=== PATIENT | male | born 1945 | race African-American/Black ===

== ENCOUNTER 2017-12-24 23:38 | Observation (INO) | payer MEDICARE, OTHER, SELFPAY ==
[2017-12-24 23:43] VITALS: BP 180/87; PULSE 67; RESP 20; TEMP 36.4; O2SAT 96
--- NOTE | 2017-12-24 23:54 | DI.RAD.S_ITS ---
PROCEDURE: XR HIP W PEL IF DONE RT 2V INDICATIONS: Ground level fall with hip pain/bruising TECHNIQUE: AP pelvis with lateral view(s) of the right hip(s). COMPARISON: None. FINDINGS: Bones: No definitive fractures or dislocations. Subtle lucency in the greater trochanter of right femur. Pelvic ring appears intact. No suspicious bony lesions. Soft tissues: The visualized bowel gas pattern is normal. Vascular calcifications consistent with atherosclerosis. IMPRESSION: No definitive fractures. Subtle lucency in the area of the greater trochanter. CT is suggested for further evaluation. Dictated by: Jassi Henao M.D. on 12/25/2017 at 8:13 Approved by: Jassi Henao M.D. on 12/25/2017 at 8:17
[2017-12-25] VITALS (9 sets, daily range): BP systolic 142–156; BP diastolic 65–91; PULSE 60–80; RESP 14–18; TEMP 36.6–37.5; O2SAT 96–99; BMI 16.9
--- NOTE | 2017-12-25 00:48 | PC.NURSE ---
glf x2 today at home, witnessed, c/o rt hip pain, difficulty ambulating, distal cms intact, c/o spasms in triage, no visible sign of injury
--- NOTE | 2017-12-25 00:55 | DI.CT.S_ITS ---
PROCEDURE: CT PEL WO CON INDICATIONS: Right hip pain, cannot ambulate, negative Xray TECHNIQUE: Noncontrast 3 mm axial sections acquired through the bony pelvis, with coronal and sagittal reformatting. COMPARISON: [facility], CT, ABDOMEN/PELVIS WITH CONTRAST, 03/07/2017, 14:57. FINDINGS: Image quality: Excellent. Bones: There is a nondisplaced fracture involving the greater trochanter. There are moderate compression fractures of L4 and L5, unchanged from 03/07/2017. Generalized osteopenia. Soft tissues: Large amount of stool in colon. Severe atherosclerosis. Moderate amount of stool in colon. IMPRESSION: 1. Nondisplaced fracture of the right proximal femur involving the greater trochanter. 2. Moderate chronic compression fractures of L4 and L5. 3. Severe atherosclerosis. No significant discrepancy with the flight control manager radiology preliminary report. Dictated by: Jassi Henao M.D. on 12/25/2017 at 7:48 Approved by: Jassi Henao M.D. on 12/25/2017 at 7:54
[2017-12-25] MEDS: HYDROCODONE/ACET 5/325 PREPACK 1 BOTTLE MISC (01:04)
--- NOTE | 2017-12-25 02:09 | PC.NURSE ---
pt unable to put weight on right leg due to pain in hip
[2017-12-25 03:11] LABS: Add Manual Diff / Slide Review NO; Basophils Percent Auto 0.5 % (0-2); Eosinophils Percent Auto 0.9 % (2-4); Hematocrit 34.7 % (41-53); Mean Corpuscular HGB Conc 34.6 % (30-36); Mean Corpuscular Hemoglobin 31.2 PG (26-34); Mean Corpuscular Volume 90.1 fL (80-100); Monocytes Percent Auto 7.3 % (3-14); Neutrophils Absolute Auto 7200 /uL (3000-5900); Neutrophils Percent Auto 73.3 % (50-75); Platelet Count 147 X10^3/uL (150-400); Red Blood Cell Count 3.85 X10^6/uL (4.5-5.9); Red Cell Distribution Width 13.7 % (11.6-14.8); White Blood Cell Count 9.8 X10^3/uL (4.5-11.0)
--- NOTE | 2017-12-25 03:19 | PC.NURSE ---
pt administered one norco from scanned prepack. Pt is now being admitted after failed ambulation trial. remaining three norco given to Law RN to be put in pharmacy upstairs per [place] coordinator. [place] are in labeled PP bottle with PP script signed by JULIUS with pt sticker attached.
[2017-12-25 03:21] LABS: BUN Creatinine Ratio 23.8 (6-22); Blood Urea Nitrogen 19 mg/dL (9-20); Calcium 9.1 mg/dL (8.4-10.2); Carbon Dioxide 29 mmol/L (22-32); Chloride 100 mmol/L (98-107); Estimated Glomerular Filt Rate > 60.0 mL/min (>60); Glucose 96 mg/dL (80-110); HEMOLYSIS < 15 (0-50); Potassium 3.9 mmol/L (3.4-5.1); Sodium 139 mmol/L (137-145)
--- NOTE | 2017-12-25 03:39 | ED_ITS ---
HPI - Extremity Injury (Lower) General Chief Complaint: Extremity Injury, Lower Stated Complaint: FALL AT HOME BRUISING ON RIGHT HIP Time Seen by Provider: 12/25/17 00:07 Source: patient and family Mode of arrival: wheelchair Limitations: no limitations History of Present Illness HPI Narrative: 72-year-old male with history of stroke and seizure presents with a mechanical fall and right hip pain. He presents with both and son. He is otherwise well and free of complaint. He denies any precipitating factors such as dizziness, weakness or lightheadedness. He has no chest pain or shortness of breath. He is unable to ambulate given pain. He denies any numbness, tingling or weakness. He fell after a very strong sneeze which knocked him over MD complaint: hip injury Onset (ago): minute(s) Injury: Right: hip Type of Injury: blunt Place: home Severity: moderate Relieving factors: nothing Exacerbating factors: weight bearing and movement Context: fall and direct blow Associated symptoms: swelling and able to partially bear weight Other symptoms: none Related Data Home Medications Medication Instructions Recorded Confirmed Lactobacillus acidophilus 2 tab TUBE QDAY #0 11/13/16 omeprazole 20 mg PO QDAY #0 11/13/16 ondansetron 4 mg PO Q4HP PRN #0 11/13/16 Previous Rx's Medication Instructions Recorded Disabled Parking Permit ea #1 05/02/16 acetaminophen 650 mg PEG Q6HP PRN #30 tab 11/07/16 levetiracetam 500 mg TUBE BID #30 tab 11/07/16 loratadine 10 mg TUBE QDAY #30 tab 11/07/16 mirtazapine 30 mg PEG HS #30 tab 11/07/16 phenytoin [Dilantin-125] 100 mg PEG BID #60 tab 11/07/16 ferrous sulfate 5 ml PO BID 30 Days #0 ml 11/15/16 Allergies Allergy/AdvReac Type Severity Reaction Status Date / Time vancomycin [VANCOMYCIN] Allergy Unknown VANCO Unverified 07/11/17 12:26 ALLERGY ON SNF FACE SHEET Review of Systems Review of Systems All systems reviewed & are unremarkable except as noted in HPI and below Constitutional Denies chills, Denies fever(s), Denies lethargy and Denies weakness Eyes Denies change in vision, Denies eye discharge, Denies irritation and Denies loss of vision ENT Ears, Nose, Mouth, and Throat: Denies change in voice, Denies neck pain and Denies sore throat Cardiovascular Denies chest pain, Denies irregular heart rhythm, Denies lightheadedness, Denies palpitations, Denies dyspnea, Denies dyspnea on exertion and Denies orthopnea Respiratory Denies cough, Denies dyspnea, Denies dyspnea on exertion and Denies wheezing Gastrointestinal Gastrointestinal: Denies abdominal pain, Denies change in bowel habits, Denies diarrhea, Denies nausea and Denies vomiting Genitourinary Denies hematuria, Denies flank pain, Denies urinary incontinence and Denies urinary urgency Musculoskeletal Reports joint swelling, Reports limited range of motion and Denies neck pain Integumentary/Breasts Denies pruritus, Denies erythema, Denies rash and Denies wounds Neurologic Denies confusion, Denies loss of vision and Denies weakness Psychiatric Denies anxiety, Denies confusion, Denies depression, Denies homicidal ideation and Denies suicidal ideation Endocrine Denies palpitations Hematologic/Lymphatic Denies easy bruising Allergic/Immunologic Denies wheezing Exam Narrative Exam Narrative: Pleasant 72-year-old male obviously in distress, laying on his left side and clutching his right hip, which is causing him significant pain Initial Vital Signs Initial Vital Signs: Vital Signs Temperature 97.5 F L 12/24/17 23:43 Pulse Rate 67 12/24/17 23:43 Respiratory Rate 20 12/24/17 23:43 Blood Pressure 180/87 H 12/24/17 23:43 Pulse Oximetry 96 12/24/17 23:43 Const General: cooperative and well developed Nutritional Appearance: well nourished Orientation: alert, awake, oriented x3 and not confused [facility] Head: normocephalic and atraumatic Ears: external ears normal and TM's normal bilaterally Nose: external nose normal and No nasal discharge Face and sinus: sinuses nontender, face symmetric, no sinus tenderness and No dry mucous membranes Mouth: oral mucosae normal and moist mucous membranes Teeth and gingiva: dentition normal Throat: tonsils normal and uvula midline Chest Chest: normal inspection of the chest Cardio Rate: regular rate Rhythm: regular rhythm Heart Sounds: no click, no gallops, no murmurs and no rubs Pulses: normal peripheral pulses Back/Spine/Pelvis Back: No CVA tenderness Cervical Spine: cervical ROM normal and No pain with cervical ROM Thoracic/Lumbar Spine: thoracic and lumbar spine normal to inspection Skin General: no rashes or lesions noted, No jaundice and No petechiae Neuro General: alert, oriented x3, gait normal and no focal motor deficits Speech: speech normal Extrem Other: Patient has severe right hip pain to palpation but no obvious deformity. No shortening or external rotation. This is closed and isolated. Neurovascularly intact. Course Course Narrative: Patient had a fall with right hip pain. Pelvic and right hip x -ray are unremarkable. Patient given hydrocodone and pain still to significant to ambulate. CT of pelvis ordered which notes nondisplaced right greater trochanter fracture. Orthopedic consult obtained and this is nonsurgical and weight-bearing as tolerated. Patient attempted to ambulate and even with a walker and significant support was unable to take more than 1 step, complaining of hip pain Decision to Admit Date: 12/25/17 Decision to Admit time: 02:35 Orders Ordered: ED Orders 12/24/17 23:54 XR hip w pel if done RT 2V Stat 12/25/17 00:55 CT pelvis wo con Stat 12/25/17 03:01 Basic Metabolic Panel Stat Complete Blood Count AUTO DIFF Stat Discontinued Medications Hydrocodone Bitart/Acetaminophen (Vicodin Prepack) 1 bottle MISC SEEINSTR ONE Stop: 12/25/17 00:56 Last Admin: 12/25/17 01:04 Dose: 1 bottle Consultations Consultation #1: Dr. Aguirre has reviewed the images and states this is nonsurgical, and weight-bearing as tolerated Consultation #2: Dr. Archer is happy to accept this patient Vital Signs - 8 hr 12/24/17 23:43 Temperature 97.5 F L Pulse Rate 67 Respiratory Rate 20 Blood Pressure 180/87 H Pulse Oximetry 96 MDM - Extremity Injury (Lower) Medical Records Attestation: I reviewed the patient's medical records. Lab Data Attestation: I reviewed the patient's lab results. Result diagrams: 12/25/17 03:01 12/25/17 03:01 Lab Results 12/25/17 12/25/17 Range/Units 03:01 03:01 WBC 9.8 (4.5-11.0) X10^3/uL RBC 3.85 L (4.5-5.9) X10^6/uL Hgb 12.0 L (13.5-17.5) g/dL Hct 34.7 L (41-53) % MCV 90.1 (80-100) fL MCH 31.2 (26-34) PG MCHC 34.6 (30-36) % RDW 13.7 (11.6-14.8) % Plt Count 147 L (150-400) X10^3/uL Neut % (Auto) 73.3 (50-75) % Lymph % (Auto) 18.0 L (25-40) % [place] % (Auto) 7.3 (3-14) % Eos % (Auto) 0.9 L (2-4) % Baso % (Auto) 0.5 (0-2) % Neut # (Auto) 7200 H (2918-0771) /uL Sodium 139 (137-145) mmol/L Potassium 3.9 (3.4-5.1) mmol/L Chloride 100 (98-107) mmol/L Carbon Dioxide 29 (22-32) mmol/L BUN 19 (9-20) mg/dL Creatinine 0.80 (0.66-1.25) mg/dL Estimated GFR > 60.0 (>60) mL/min BUN/Creatinine Ratio 23.8 H (6-22) Glucose 96 (80-110) mg/dL Calcium 9.1 (8.4-10.2) mg/dL Imaging Data Pelvis Xray: Attestation: I personally reviewed and interpreted this imaging study as follows: My impression: DIRK Radiologist's impression: DIRK CT Pelvis: Radiologist's impression: Nondisplaced fracture of right greater trochanter MDM Narrative Medical decision making narrative: Patient has some difficulty ambulating at baseline and at times requires the use of a walker. He was very unsteady and a tremendous risk for a fall and significant injury Discharge Plan Departure Patient Disposition: Admitted as Observation Clinical Impression: Closed fracture of right hip Interventions: ED Discharge Assessment Last Done: 12/25/17 03:22 Admit Date/Time: 12/25/17 03:24 Admit Provider: Samuel Archer
[2017-12-25] MEDS: HYDROCODONE/ACET 5/325 TABLET 1 TAB PO ×2 (09:12→14:50)
--- NOTE | 2017-12-25 12:38 | PC.NURSE ---
Day Shift- Rn and program writer spoke with Dr. null at 0815 to receive diet and pain med order. Pt given [place] 1 tab prn at 0915 for 8/10 pain with movement, upon reassessment, pt states has no pain. OOB to recliner chair with [address] null to assess pt, no home meds ordered yet. VSS, Pt has no further complaints. CMS+ to BLE, PPP, no edema noted, no open skin area/skin issues at this time. High fall risk precautions in place, Pt sitting up in chair at 1140. Call light within reach.
--- NOTE | 2017-12-25 13:54 | CM.DANOTE ---
Addendum entered by DEAN Terrell 12/25/17 13:59: Orthopedic consult obtained and was reported as nonsurgical and patient weight-bearing as tolerated. Patient to work with PT to determine discharge needs. Original Note: Discharge Planning/Care Management CM Discharge Assessment Start: 12/25/17 13:48 Document 12/25/17 13:53 MD (Rec: 12/25/17 13:54 [id number]) Discharge Planning Assessment Assigned 3D Specialist DEAN Terrell Advance Directives? No Advance Directives on File No History Provided By Patient Medical Record Has Patient been admitted in last 30 No days? Prior Living Arrangements House Household Members family Type of transporation used prior to Relies on Others admit Discharge Plan Home Review Status In Process Please Provide Date Initial DC 12/25/17 Assessment Was Performed Next Review Type Continued Stay Review Reviewed EMR: 72-year-old male with history of stroke and seizure admitted following fall and right hip pain. Patient currently OBS status pending Ortho consult and PT eval. SW attempted to complete assessment with patient but patient stated the pain medications were making him out of it. Patient was able to report he lives with his and two adult children. Asked SW to come back later. Patient was last admitted 04/[address] [facility]. Per MD: patient able to discharge home is he does will with PT. At this time discharge needs are unclear.
--- NOTE | 2017-12-25 14:57 | P.HP_ITS ---
History of Present Illness Chief complaint: FALL AT HOME BRUISING ON RIGHT HIP Narrative: Patient was sweeping the floor last night, had a vigorous cough and fell landing on his right hip. He has had a history of stroke affecting his left side. He does not feel weak on the left side. He has a walker at home which he uses infrequently. Patient did not lose consciousness, hit his head, feel short of breath, have chest pain, nausea, emesis, hemetemesis, bright red blood per rectum, burning with urination, fever, chills, cough, or headache. He was evaluated in the emergency department with both a hip xray and pelvic CT which confirmed a non displaced greater trochanteric fracture. The case was discussed with orthopedics and surgery was not recommended. The patient will be allowed to weight bear as tolerated. Patient was unable to ambulate last evening and was admitted for observation. Patient History Medical History CVA, old, alterations of sensations (Acute) Hypertension (Acute) Iron deficiency anemia (Acute) Seizure disorder (Acute) Family & Social History Social History: household members family Prior Living Arrangements House Safety & Behavioral: Feels Safe in Current Yes Environment Been Physically Hurt or No Threatened By a Person Suicidal Ideation Description None Tobacco & Substance use: Smoking Status Never smoker alcohol intake never Substance Use Type does not use Meds Home Medications Medication Instructions Recorded Confirmed Type omeprazole 20 mg PO QDAY #0 11/13/16 12/25/17 History Disabled Parking Permit 1 ea MISCELLANEOUS DIRECTED 12/25/17 12/25/17 History acetaminophen 650 mg PO Q6HP PRN 12/25/17 12/25/17 History aspirin 1 tab PO DAILY 12/25/17 12/25/17 History felodipine 1 tab PO DAILY 12/25/17 12/25/17 History ferrous sulfate 1 tab PO DAILY 12/25/17 12/25/17 History fluoxetine 12/25/17 History levetiracetam [Keppra] 500 mg PO BID 12/25/17 12/25/17 History lisinopril 20 mg PO DAILY 12/25/17 12/25/17 History loratadine 10 mg PO QDAY 12/25/17 12/25/17 History mirtazapine 30 mg PO HS 12/25/17 12/25/17 History phenytoin sodium extended 1 cap PO BID 12/25/17 12/25/17 History [Dilantin Extended] Allergies Allergy/AdvReac Type Severity Reaction Status Date / Time vancomycin [VANCOMYCIN] Allergy Unknown VANCO Unverified 07/11/17 12:26 ALLERGY ON SNF FACE SHEET Review of Systems Review of Systems All systems reviewed & are unremarkable except as noted in HPI and below Exam Vital Signs (past 8 hours): - 12/25/17 07:38 12/25/17 09:21 12/25/17 11:35 Temperature 98.5 F 98.1 F Pulse Rate 60 62 Respiratory Rate 16 16 Blood Pressure 142/91 H 144/65 H Pulse Oximetry 97 97 99 Oxygen Delivery Method Room Air Oxygen Flow Rate 0 Narrative Exam Narrative: Pleasant male in no acute distress HEENT: NC/AT, EOMI, bilateral arcus senilis, oropharynx clear neck supple Lungs: clear to auscultation CV: RRR nl Sl S2 Abd: Soft/ non tender/ nondistended/ no HSM Ext: right femur rotated upwards, no edema Neuro: non focal Skin: no lesions Psych: awake alert, appropriate Objective Labs Result Diagrams: 12/25/17 03:01 12/25/17 03:01 Labs: Laboratory Results - last 24 hr 12/25/17 12/25/17 03:01 03:01 WBC 9.8 RBC 3.85 L Hgb 12.0 L Hct 34.7 L MCV 90.1 MCH 31.2 MCHC 34.6 RDW 13.7 Plt Count 147 L Neut % (Auto) 73.3 Lymph % (Auto) 18.0 L Saline % (Auto) 7.3 Eos % (Auto) 0.9 L Baso % (Auto) 0.5 Neut # (Auto) 7200 H Sodium 139 Potassium 3.9 Chloride 100 Carbon Dioxide 29 BUN 19 Creatinine 0.80 Estimated GFR > 60.0 BUN/Creatinine Ratio 23.8 H Glucose 96 Calcium 9.1 Assessment & Plan (1) Closed fracture of right hip: Problem details: Patient is weight bearing as tolerated. He will work with PT/OT once he can safely manage use of the walker he can be discharged home. Patient prefers to be discharged home with family Qualifiers: Encounter type: initial encounter Fracture healing: Qualified Code(s) : S72.001A - Fracture of unspecified part of neck of right femur, initial encounter for closed fracture Current visit: Yes Status: Acute (2) Dehydration: Problem details: IV fluids Current visit: No Status: Acute (3) Vomiting: Current visit: No Status: Acute (4) Seizure: Problem details: continue antiepileptic medications Current visit: No Status: Acute Plan: Assessment/Plan Narrative: PT/OT Calcium vit D bisphosphonate for osteoporosis
--- NOTE | 2017-12-25 15:40 | PT.IIE ---
Current Diagnoses Dehydration (12/25/17) Vomiting, unspecified (12/25/17) Unspecified convulsions (12/25/17) Fracture of unspecified part of neck of right femur, initial encounter for closed fracture (12/25/17) Medical History (Last Updated 12/25/17 @ 15:20 by Gila Miller MD) CVA, old, alterations of sensations (Acute) Hypertension (Acute) Iron deficiency anemia (Acute) Seizure disorder (Acute) Physical Therapy Inpatient Evaluation/Re-Eval M1 PT/OT-IP Prior Functional Status Start: 12/25/17 14:59 Freq: NEEDED Status: Active Protocol: Document 12/25/17 14:59 RS (Rec: 12/25/17 15:04 [id number]) Medical Review Prior Functional Status Medical History Reviewed Yes Communication no known deficits Mobility and Gait pt reports he has a 4WW and FWW, doesn't like to use either, but his and son hound him to use a walker, they will bring it to him if he has left it somewhere. Activities of Daily Living and IADL's unclear, pt not giving very detailed information, reports he gets some help sometimes but also reports he does most of the chores. Prior Functional Level (Other details) at least 2 falls in the last 3 months Social History Household Members spouse children Living Arrangements House Number of Floors (Floors) Two Floors Number of Stairs To Enter/Railing? 2 SHILPA without rails, full flight to second floor with bilat rails M2 PT-IP Current Condition Start: 12/25/17 14:59 Freq: NEEDED Status: Active Protocol: Document 12/25/17 14:59 RS (Rec: 12/25/17 15:04 [email or web address]) Physical Therapy Current Condition Current Condition Evaluation Date 12/25/17 Treatment Diagnosis impaired mobility - R hip fx Onset Date 12/24/17 Weight Bearing Status Weight Bearing Status Weight Bear as Tolerated M3 PT-IP Subjective Start: 12/25/17 14:59 Freq: NEEDED Status: Active Protocol: Document 12/25/17 14:59 RS (Rec: 12/25/17 15:04 [email or web address]) Subjective Physical Therapy Visit Type Type Initial Evaluation Visit Start Time 14:23 Physical Therapy Visit Comments Patient Comments Pt reports falling while mopping the kitchen floor. Pt also feels his or son could physically help him at home. Patient Goals go home Therapy Pain Assessment Pain When Pain Assessed At Rest Pain Present Pain Present Denied Pain M4 PT-IP Mobility and Gait Start: 12/25/17 14:59 Freq: NEEDED Status: Active Protocol: Document 12/25/17 15:40 RS (Rec: 12/25/17 15:57 RS [id number]) PT-Bed Mobility Assessment Sit to Supine Sit to Supine Moderate Assistance 1 Person Assistance Scooting Scooting Up and Down in Bed Dependent PT-Transfer Assessment Sit to and From Stand Sit to and from Stand Moderate Assistance 1 Person Assistance Use of Upper Extremities Equipment Transfer Assistive Device Gait Belt Front Wheeled Walker Transfers Transfer Destination Bed Transfer Technique Stand Pivot Transfer Ability Level of Assist Maximum Assistance Use of Upper Extremities Comments Mobility Comments Pt able to get half way up to standing by himself with use of armrests but then needs mod A to get all the way up to standing whether using a FWW or not. With a walker in standing pt is able to perform lateral weight shifts with assist and is able to lift the RLE, but pt is unable to unweight the LLE at all. A stand-pivot chair>bed was performed without a walker, pt holding onto PT's shoulders to perform a max A pivot. Gait Assessment Comments Gait Comments not able to perform Stair Climbing Assessment Comments Stair Climbing Comments not able to perform PT-Balance Assessment Sitting Balance and Reactions Static Sitting Balance Ability Good Dynamic Sitting Balance Ability Good Standing Balance and Reactions Static Standing Balance Ability Poor Dynamic Standing Balance Ability Poor Device Used FWW M5 PT-IP Objective Assessments Start: 12/25/17 14:59 Freq: NEEDED Status: Active Protocol: Document 12/25/17 15:40 RS (Rec: 12/25/17 15:57 RS [id number]) Orientation Orientation/Cognition Level of Alertness Confusional State Orientation Name Age Situation Language Function Ability Word Finding Difficulties Safety Awareness Decreased Safety Awareness Memory Description Short Term Impaired Comments would benefit from further cognitive testing Gross Range of Motion Upper Extremity ROM Assessment Within Functional Limits Lower Extremity ROM Impairments in resting pt's legs are rotated to the left (R hip internally rotated, L hip externally rotated), difficult to even get hips to neutral Strength Upper Extremity Strength Assessment Within Functional Limits Lower Extremity Strength Assessment Right Impaired Comments Strength Comments RLE with significant pain related weakness M6 PT-IP Treatment Start: 12/25/17 14:59 Freq: NEEDED Status: Active Protocol: Document 12/25/17 15:40 RS (Rec: 12/25/17 15:57 RS [id number]) Physical Therapy Treatment Education Education Provided Safety M7 PT-IP Assessment and Plan Start: 12/25/17 14:59 Freq: NEEDED Status: Active Protocol: Document 12/25/17 15:40 RS (Rec: 12/25/17 15:57 RS [id number]) PT Summary Assessment and Plan Potential Rehabilitation Potential Good Status of Condition at Evaluation Evolving Summary Impairments Pain Strength Balance Cognition Bed Mobility Transfers Gait Activity Tolerance Assessment Summary Pt presents with significant pain, weakness, and impaired mobility s/p fall resulting in R proximal femur fracture involving the greater trochanter. It's being treated conservatively. Currently pt requires up to 2 person max A for mobility, placing him well below his reported functional baseline. Pt does have good potential for functional improvement and will benefit from ongoing physical therapy. It is recommended that pt transition to SNF rehab, however, this might not be a financial possibility. If pt does discharge directly home he will need 24/7 assist and extensive family training, preferably assist of 2 people for mobility. Pt feels his /son can provide this level of assist for him, but will need to confirm with family. Goals Bed Mobility Goal Minimal Assistance Transfer Goal Minimal Assistance Front Wheeled Walker Days to Meet Goals 3 Frequency of Treatment Frequency Of Treatment Twice a Day Treatment Plan Physical Therapy Treatment Plan Bed Mobility Training Transfer Training Therapeutic Exercise Balance Retraining Discharge Planning Other Recommendations and Next Treatment wheelchair training Focus Recommendations To Nursing Amount of Assist Needed 2 Person Assist Discharge Recommendations PT Discharge Recommendations SNF Rehab Other Discharge Recommendations if going home would need 2 person 24/7 assist Equipment Needed for Home Before wheelchair Discharge
[2017-12-25] MEDS: levETIRAcetam 250 MG TABLET 500 MG PO ×2 (16:20→20:59)
[2017-12-25] MEDS: ENOXAPARIN 40 MG/0.4 ML SYRINGE SUBCUT (17:45)
[2017-12-25] MEDS: LISINOPRIL 20 MG TABLET PO (17:46)
[2017-12-25] MEDS: PANTOPRAZOLE 20 MG TABLET PO (17:46)
--- NOTE | 2017-12-25 18:14 | PC.NURSE ---
Pt resting quietly at this time. Denies any discomfort. HL LFA intact/patent. Call light w/in reach.
[2017-12-25] MEDS: CALCIUM CARB/VIT D3 500/200 TABLET 1 EACH PO (18:30)
[2017-12-25] MEDS: DOCUSATE 100 MG CAPSULE PO (20:58)
[2017-12-25] MEDS: MIRTAZAPINE 15 MG TABLET 30 MG PO (20:59)
[2017-12-25] MEDS: SODIUM CHLORIDE 0.9% FLUSH 10 ML IV (21:00)
[2017-12-26] VITALS (8 sets, daily range): BP systolic 131–189; BP diastolic 75–91; PULSE 66–73; RESP 14–16; TEMP 36.7–37.2; O2SAT 92–99
[2017-12-26] MEDS: HYDROCODONE/ACET 5/325 TABLET 1 TAB PO ×2 (04:07→09:24)
[2017-12-26] MEDS: DOCUSATE 100 MG CAPSULE PO ×2 (08:41→20:29)
[2017-12-26] MEDS: CALCIUM CARB/VIT D3 500/200 TABLET 1 EACH PO ×2 (08:41→18:01)
[2017-12-26] MEDS: ENOXAPARIN 40 MG/0.4 ML SYRINGE SUBCUT (08:41)
[2017-12-26] MEDS: levETIRAcetam 250 MG TABLET 500 MG PO ×2 (08:42→20:29)
[2017-12-26] MEDS: LISINOPRIL 20 MG TABLET PO (08:43)
[2017-12-26] MEDS: PANTOPRAZOLE 20 MG TABLET PO (08:48)
[2017-12-26] MEDS: SODIUM CHLORIDE 0.9% FLUSH 10 ML IV ×2 (08:49→20:30)
--- NOTE | 2017-12-26 11:20 | PT.IIE ---
Current Diagnoses Dehydration (12/25/17) Vomiting, unspecified (12/25/17) Unspecified convulsions (12/25/17) Fracture of unspecified part of neck of right femur, initial encounter for closed fracture (12/25/17) Medical History (Last Updated 12/25/17 @ 15:20 by Gila Miller MD) CVA, old, alterations of sensations (Acute) Hypertension (Acute) Iron deficiency anemia (Acute) Seizure disorder (Acute) Physical Therapy Inpatient Evaluation/Re-Eval M1 PT/OT-IP Prior Functional Status Start: 12/25/17 14:59 Freq: NEEDED Status: Active Protocol: Document 12/25/17 14:59 RS (Rec: 12/25/17 15:04 [id number]) Medical Review Prior Functional Status Medical History Reviewed Yes Communication no known deficits Mobility and Gait pt reports he has a 4WW and FWW, doesn't like to use either, but his and son hound him to use a walker, they will bring it to him if he has left it somewhere. Activities of Daily Living and IADL's unclear, pt not giving very detailed information, reports he gets some help sometimes but also reports he does most of the chores. Prior Functional Level (Other details) at least 2 falls in the last 3 months Social History Household Members spouse children Living Arrangements House Number of Floors (Floors) Two Floors Number of Stairs To Enter/Railing? 2 SHILPA without rails, full flight to second floor with bilat rails M2 PT-IP Current Condition Start: 12/25/17 14:59 Freq: NEEDED Status: Active Protocol: Document 12/25/17 14:59 RS (Rec: 12/25/17 15:04 [email or web address]) Physical Therapy Current Condition Current Condition Evaluation Date 12/25/17 Treatment Diagnosis impaired mobility - R hip fx Onset Date 12/24/17 Weight Bearing Status Weight Bearing Status Weight Bear as Tolerated M3 PT-IP Subjective Start: 12/25/17 14:59 Freq: NEEDED Status: Active Protocol: Document 12/25/17 14:59 RS (Rec: 12/25/17 15:04 [id number]) Subjective Physical Therapy Visit Type Type Initial Evaluation Visit Start Time 14:23 Physical Therapy Visit Comments Patient Comments Pt reports falling while mopping the kitchen floor. Pt also feels his or son could physically help him at home. Patient Goals go home Therapy Pain Assessment Pain When Pain Assessed At Rest Pain Present Pain Present Denied Pain M4 PT-IP Mobility and Gait Start: 12/25/17 14:59 Freq: NEEDED Status: Active Protocol: Document 12/25/17 15:40 RS (Rec: 12/25/17 15:57 RS [id number]) PT-Bed Mobility Assessment Sit to Supine Sit to Supine Moderate Assistance 1 Person Assistance Scooting Scooting Up and Down in Bed Dependent PT-Transfer Assessment Sit to and From Stand Sit to and from Stand Moderate Assistance 1 Person Assistance Use of Upper Extremities Equipment Transfer Assistive Device Gait Belt Front Wheeled Walker Transfers Transfer Destination Bed Transfer Technique Stand Pivot Transfer Ability Level of Assist Maximum Assistance Use of Upper Extremities Comments Mobility Comments Pt able to get half way up to standing by himself with use of armrests but then needs mod A to get all the way up to standing whether using a FWW or not. With a walker in standing pt is able to perform lateral weight shifts with assist and is able to lift the RLE, but pt is unable to unweight the LLE at all. A stand-pivot chair>bed was performed without a walker, pt holding onto PT's shoulders to perform a max A pivot. Gait Assessment Comments Gait Comments not able to perform Stair Climbing Assessment Comments Stair Climbing Comments not able to perform PT-Balance Assessment Sitting Balance and Reactions Static Sitting Balance Ability Good Dynamic Sitting Balance Ability Good Standing Balance and Reactions Static Standing Balance Ability Poor Dynamic Standing Balance Ability Poor Device Used FWW M5 PT-IP Objective Assessments Start: 12/25/17 14:59 Freq: NEEDED Status: Active Protocol: Document 12/25/17 15:40 RS (Rec: 12/25/17 15:57 RS [id number]) Orientation Orientation/Cognition Level of Alertness Confusional State Orientation Name Age Situation Language Function Ability Word Finding Difficulties Safety Awareness Decreased Safety Awareness Memory Description Short Term Impaired Comments would benefit from further cognitive testing Gross Range of Motion Upper Extremity ROM Assessment Within Functional Limits Lower Extremity ROM Impairments in resting pt's legs are rotated to the left (R hip internally rotated, L hip externally rotated), difficult to even get hips to neutral Strength Upper Extremity Strength Assessment Within Functional Limits Lower Extremity Strength Assessment Right Impaired Comments Strength Comments RLE with significant pain related weakness M6 PT-IP Treatment Start: 12/25/17 14:59 Freq: NEEDED Status: Active Protocol: Document 12/25/17 15:40 RS (Rec: 12/25/17 15:57 RS [id number]) Physical Therapy Treatment Education Education Provided Safety M7 PT-IP Assessment and Plan Start: 12/25/17 14:59 Freq: NEEDED Status: Active Protocol: Document 12/25/17 15:40 RS (Rec: 12/25/17 15:57 RS [id number]) PT Summary Assessment and Plan Potential Rehabilitation Potential Good Status of Condition at Evaluation Evolving Summary Impairments Pain Strength Balance Cognition Bed Mobility Transfers Gait Activity Tolerance Assessment Summary Pt presents with significant pain, weakness, and impaired mobility s/p fall resulting in R proximal femur fracture involving the greater trochanter. It's being treated conservatively. Currently pt requires up to 2 person max A for mobility, placing him well below his reported functional baseline. Pt does have good potential for functional improvement and will benefit from ongoing physical therapy. It is recommended that pt transition to SNF rehab, however, this might not be a financial possibility. If pt does discharge directly home he will need 24/7 assist and extensive family training, preferably assist of 2 people for mobility. Pt feels his /son can provide this level of assist for him, but will need to confirm with family. Goals Bed Mobility Goal Minimal Assistance Transfer Goal Minimal Assistance Front Wheeled Walker Days to Meet Goals 3 Frequency of Treatment Frequency Of Treatment Twice a Day Treatment Plan Physical Therapy Treatment Plan Bed Mobility Training Transfer Training Therapeutic Exercise Balance Retraining Discharge Planning Other Recommendations and Next Treatment wheelchair training Focus Recommendations To Nursing Amount of Assist Needed 2 Person Assist Discharge Recommendations PT Discharge Recommendations SNF Rehab Other Discharge Recommendations if going home would need 2 person 24/7 assist Equipment Needed for Home Before wheelchair Discharge
--- NOTE | 2017-12-26 12:34 | PT.IPTN ---
Current Diagnoses Dehydration (12/25/17) Vomiting, unspecified (12/25/17) Unspecified convulsions (12/25/17) Fracture of unspecified part of neck of right femur, initial encounter for closed fracture (12/25/17) Physical Therapy Treatment Note M2 PT-IP Current Condition Start: 12/25/17 14:59 Freq: NEEDED Status: Active Protocol: Document 12/25/17 14:59 RS (Rec: 12/25/17 15:04 RS [id number]) Physical Therapy Current Condition Current Condition Evaluation Date 12/25/17 Treatment Diagnosis impaired mobility - R hip fx Onset Date 12/24/17 Weight Bearing Status Weight Bearing Status Weight Bear as Tolerated M3 PT-IP Subjective Start: 12/25/17 14:59 Freq: NEEDED Status: Active Protocol: Document 12/26/17 12:20 LJ (Rec: 12/26/17 12:34 LJ [id number]) Subjective Physical Therapy Visit Type Type Treatment Note Visit Start Time 11:30 Visit Stop Time 12:00 Total Visit Minutes 30 Physical Therapy Visit Comments Patient Comments Pt willing to get out of bed Therapy Pain Assessment Pain When Pain Assessed At Rest Pain Present Pain Present Pain Reported M4 PT-IP Mobility and Gait Start: 12/25/17 14:59 Freq: NEEDED Status: Active Protocol: Document 12/26/17 12:20 LJ (Rec: 12/26/17 12:34 LJ [id number]) PT-Bed Mobility Assessment Supine to Sit Supine to Sit Moderate Assistance 1 Person Assistance PT-Transfer Assessment Sit to and From Stand Sit to and from Stand Moderate Assistance 2 Person Assistance Use of Upper Extremities Equipment Transfer Assistive Device Gait Belt Front Wheeled Walker Transfers Transfer Destination Chair Transfer Technique Stand Step Pivot Transfer Ability Level of Assist Moderate Assistance 2 Person Assistance Use of Upper Extremities Comments Mobility Comments Pt able to move LEs with min- mod assist in bed. Requirred mod assist for scooting to side of bed. Sit>stand required mod cues for use of arms and erect posture. Able to transfer weight to either leg for step pivot. Pt able to lower self into chair with control. M5 PT-IP Objective Assessments Start: 12/25/17 14:59 Freq: NEEDED Status: Active Protocol: Document 12/25/17 15:40 RS (Rec: 12/25/17 15:57 RS [id number]) Orientation Orientation/Cognition Level of Alertness Confusional State Orientation Name Age Situation Language Function Ability Word Finding Difficulties Safety Awareness Decreased Safety Awareness Memory Description Short Term Impaired Comments would benefit from further cognitive testing Gross Range of Motion Upper Extremity ROM Assessment Within Functional Limits Lower Extremity ROM Impairments in resting pt's legs are rotated to the left (R hip internally rotated, L hip externally rotated), difficult to even get hips to neutral Strength Upper Extremity Strength Assessment Within Functional Limits Lower Extremity Strength Assessment Right Impaired Comments Strength Comments RLE with significant pain related weakness M6 PT-IP Treatment Start: 12/25/17 14:59 Freq: NEEDED Status: Active Protocol: Document 12/26/17 12:20 LJ (Rec: 12/26/17 12:34 LJ [id number]) Physical Therapy Treatment Education Education Provided Safety M7 PT-IP Assessment and Plan Start: 12/25/17 14:59 Freq: NEEDED Status: Active Protocol: Document 12/26/17 12:20 LJ (Rec: 12/26/17 12:34 LJ [id number]) PT Summary Assessment and Plan Summary Assessment Summary Pt reported little pain with movement. Able to shift weight for stand-step pivot. Showed pronounced slouching in sitting and standing but corrected with mod cues. Requires min-mod assist x 2 for safety. Did not want gait belt at beginning of treatment . Goals Bed Mobility Goal Minimal Assistance Transfer Goal Minimal Assistance Front Wheeled Walker Days to Meet Goals 3 Frequency of Treatment Frequency Of Treatment Twice a Day Treatment Plan Physical Therapy Treatment Plan Bed Mobility Training Transfer Training Therapeutic Exercise Balance Retraining Discharge Planning Other Recommendations and Next Treatment wheelchair training Focus Recommendations To Nursing Amount of Assist Needed 2 Person Assist Discharge Recommendations PT Discharge Recommendations SNF Rehab Other Discharge Recommendations if going home would need 2 person 24/7 assist Equipment Needed for Home Before wheelchair Discharge
--- NOTE | 2017-12-26 12:56 | P.PN_ITS ---
Subjective Date Patient Seen: 12/26/17 Interval history: Patient is sitting up to a chair eating. He still reports pain with ambulation Patient was evaluated by PT and still is deemed unsafe for discharge home Patient is willing to go to SNF if indicated Exam Vital Signs (past 8 hours): - 12/26/17 07:00 12/26/17 08:00 Temperature 98.1 F Pulse Rate 66 Respiratory Rate 14 Blood Pressure 167/89 H Pulse Oximetry 98 97 Oxygen Delivery Method Room Air Oxygen Flow Rate 0 Narrative Exam Narrative: Pleasant male in NAD Lungs: clear to auscultation CV: RRR nl Sl S2 2/6 NOE Abd: soft/nontender/nondistended Ext: no edema Objective Labs Result Diagrams: 12/25/17 03:01 12/25/17 03:01 Assessment & Plan (1) Closed fracture of right hip: Problem details: Patient is weight bearing as tolerated. He will work with PT/OT once he can safely manage use of the walker he can be discharged home. Patient prefers to be discharged home with family. He continues to have difficulty ambulating, it appears he is unsafe for discharge home at this time Qualifiers: Encounter type: initial encounter Fracture healing: Qualified Code(s) : S72.001A - Fracture of unspecified part of neck of right femur, initial encounter for closed fracture Current visit: Yes Status: Acute (2) Abdominal pain: Current visit: No Status: Acute (3) Dehydration: Problem details: IV fluids Current visit: No Status: Acute (4) Osteoporosis: Problem details: Calcium VitD/Bisphosphonate Current visit: Yes Status: Acute Plan: Assessment/Plan Narrative: Continue PT/OT-
--- NOTE | 2017-12-26 13:05 | OT.IP.EVAL ---
Current Diagnoses Dehydration (12/25/17) Age-related osteoporosis without current pathological fracture (12/25/17) Unspecified abdominal pain (12/25/17) Vomiting, unspecified (12/25/17) Unspecified convulsions (12/25/17) Fracture of unspecified part of neck of right femur, initial encounter for closed fracture (12/25/17) Past Medical History (Last Updated 12/25/17 @ 15:20 by Gila Miller MD) CVA, old, alterations of sensations (Acute) Hypertension (Acute) Iron deficiency anemia (Acute) Seizure disorder (Acute) Occupational Therapy Inpatient Evaluation/Re-Eval M1 PT/OT-IP Prior Functional Status Start: 12/25/17 14:59 Freq: NEEDED Status: Active Protocol: Document 12/25/17 14:59 RS (Rec: 12/25/17 15:04 RS [id number]) Medical Review Prior Functional Status Medical History Reviewed Yes Communication no known deficits Mobility and Gait pt reports he has a 4WW and FWW, doesn't like to use either, but his and son hound him to use a walker, they will bring it to him if he has left it somewhere. Activities of Daily Living and IADL's unclear, pt not giving very detailed information, reports he gets some help sometimes but also reports he does most of the chores. Prior Functional Level (Other details) at least 2 falls in the last 3 months Social History Household Members spouse children Living Arrangements House Number of Floors (Floors) Two Floors Number of Stairs To Enter/Railing? 2 SHILPA without rails, full flight to second floor with bilat rails M1 PT/OT-IP Prior Functional Status Start: 12/26/17 12:31 Freq: NEEDED Status: Active Protocol: Document 12/26/17 12:32 [facility] (Rec: 12/26/17 13:04 [facility] [id number]) Medical Review Prior Functional Status Medical History Reviewed Yes Diet/Fluid Consistency Regular Thin Liquids Communication no known deficits Mobility and Gait pt reports he has a 4WW and FWW, doesn't like to use either, but his and son hound him to use a walker, they will bring it to him if he has left it somewhere. Activities of Daily Living and IADL's unclear, pt not giving very detailed information, reports he gets some help sometimes but also reports he does most of the chores. Pt states prior to fall able to do all ADl's on his own, cooking and cleaning. Prior Functional Level (Other details) at least 2 falls in the last 3 months Social History Household Members spouse children Living Arrangements House Number of Floors (Floors) Two Floors Number of Stairs To Enter/Railing? 2 SHILPA without rails, full flight to second floor with bilat rails Home Environment Standard Height Toilet Walk in Shower Home Equipment Front Wheel Walker Four Wheel Walker Manual Wheelchair Grab Bars In Shower M2 OT-IP Current Condition Start: 12/26/17 12:31 Freq: Status: Active Protocol: Document 12/26/17 12:32 [facility] (Rec: 12/26/17 13:04 [facility] [id number]) Occupational Therapy Current Condition Current Condition Evaluation Date 12/26/17 Treatment Diagnosis Right Hip FX, weakness, s/p GLF Diagnosis Onset Date 12/25/17 Weight Bearing Status Weight Bearing Status Weight Bear as Tolerated M3 OT- IP Subjective and Pain Start: 12/26/17 12:31 Freq: Status: Active Protocol: Document 12/26/17 12:32 [facility] (Rec: 12/26/17 13:04 [facility] [id number]) OT- Subjective Occupational Therapy Visit Type Type Initial Evaluation Visit Start Time 11:34 Visit Stop Time 12:09 Total Visit Minutes 35 Occupational Therapy Visit Comments Patient/Caregiver Goals Pt would like to go home when medically stable. OT Pain Assessment Pain When Pain Assessed At Rest Pain Present Pain Present Denied Pain M4 OT- IP ADL's Start: 12/26/17 12:31 Freq: Status: Active Protocol: Document 12/26/17 12:32 [facility] (Rec: 12/26/17 13:04 [facility] [id number]) OT [id number] Comments OT Self-Feeding Comments Increased time to eat. OT ADL-Grooming Comments OT Grooming Comments Pt able to wash hands and face while in the recliner, not ready to attempt standing for grooming needs at this time. OT ADL-Dressing General Eval Lower Body Dressing Ability Maximum Assistance Areas Needing Assistance Socks Comments OT Dressing Comments Pt would need MAX A for LB dressing due to difficulty standing. M6 OT- IP Functional Cognition Start: 12/26/17 12:31 Freq: Status: Active Protocol: Document 12/26/17 12:32 [facility] (Rec: 12/26/17 13:04 [facility] [id number]) Cognitive Factors Limiting Selfcare Function Cognitive Ability Level of Alertness Alert Patient Orientation Name Place Situation Attention Span Ability Capable of Focused Attention Capable of Sustained Attention Ability to Follow Commands Able to Follow One Step Commands with Increased Time Able to Follow One Step Commands with Repetition Memory Description Working Impaired Safety Awareness Underestimates Need for Assistance Problem Solving Ability Needs Assist to Identify Solutions Cognitive Comments Cognitive Assessment Comments Pt needing increased time to follow directions and process information, pt has history of old CVA. Pt needs simple concrete commands. OT- Vision and Hearing OT- Hearing Assessment OT- Hearing Assessment WFL M7 OT- IP Mobility and Balance Start: 12/26/17 12:31 Freq: Status: Active Protocol: Document 12/26/17 12:32 [facility] (Rec: 12/26/17 13:04 [facility] [id number]) OT- Bed Mobility Assessment Supine to Sit Supine to Sit Assist Moderate Assistance 2 Person Assistance Scooting Scooting to Edge of Bed Moderate Assistance 1 Person Assistance OT-Transfer Assessment Sit to and From Stand Sit to and from Stand Moderate Assistance 2 Person Assistance Transfers Transfer Ability Moderate Assistance 2 Person Assistance Technique Transfer Destination Chair Transfer Technique Stand Step Pivot Devices Transfer Assistive Devices Gait Belt Front Wheeled Walker Comments Mobility Comments Pt needing MODA x 2 to stand and transfer with FWW. Pt moving very slowly and needing assist for balance, help guide FWW and come from sit to stand and stand to sit. OT- Balance Assessment Sitting Balance and Reactions Static Sitting Balance Ability Fair Dynamic Sitting Balance Ability Poor Comments Other Balance Tests/Deviations/Treatment Pt has flexed posture at head : and trunk and tend to lean to the right. M8 OT- IP Objective Assessments Start: 12/26/17 12:31 Freq: Status: Active Protocol: Document 12/26/17 12:32 [facility] (Rec: 12/26/17 13:04 [facility] [id number]) OT Gross Range of Motion Upper Extremity Range of Motion ROM Impairments Pt shoulder flexion 0-95, arthritic changes in hands but able to use for FMS of set-up for lunch tray. OT Strength Comments Strength Comments BUE strength 4-/5 for RUE form proximal to distal and LUE 4- /5 to 4/5 for proximal to distal. M9 OT- IP Assessment and Plan Start: 12/26/17 12:31 Freq: Status: Active Protocol: Document 12/26/17 12:32 [facility] (Rec: 12/26/17 13:04 [facility] [id number]) OT Summary Assessment and Plan Potential Rehabilitation Potential Good Analytic Complexity at Evaluation Moderate Summary OT Impairments Pain Range of Motion Strength Balance Functional Cognition Functional Mobility Grooming Dressing Toileting Bathing Toilet Transfers Shower Transfers Progress Towards Goals Slow Progress due to Pain Slow Progress due to Medical Issues Slow Progress due to Activity Tolerance Assessment Summary Pt MOD complexity and main barriers are steps, pain, and now needing two person assist for all mobility and ADL needs . At this time, pt would benefit from skilled rehab pending his progress, caregiver training and if pt's family able to provide enough assist for pt at home. Goals Grooming Goal Minimal Assistance Dressing Goal Moderate Assistance Toileting Goal Moderate Assistance Bathing Goal Moderate Assistance Toilet Transfer Goal Moderate Assistance Shower Transfer Goal Moderate Assistance Patient/Caregiver Education Goal Caregiver Independent Assisting Patient Days to Meet Goals 10 Frequency of Treatment Frequency Of Treatment Once a Day Treatment Plan OT Treatment Plan ADL Training Functional Cognition Training Functional Mobility Patient/Family Education Discharge Planning Discharge Recommendations OT Discharge Recommendations SNF Rehab Other Discharge Recommendations Pending family training, pt may be able to go home if family able to provide enough assist for pt. Home Equipment Needs [facility]
--- NOTE | 2017-12-26 14:21 | PM.PN.1 ---
Subjective Date Patient Seen: 12/26/17 Time Patient Seen: 14:22 Interval history: Patient doing well. Trying to walk with PT some but is unstable still. No overnight events. Exam Vital Signs (past 8 hours): - 12/26/17 07:00 12/26/17 08:00 Temperature 98.1 F Pulse Rate 66 Respiratory Rate 14 Blood Pressure 167/89 H Pulse Oximetry 98 97 Oxygen Delivery Method Room Air Oxygen Flow Rate 0 Narrative Exam Narrative: Exam Narrative: Pleasant male in no acute distress HEENT: NC/AT, EOMI, bilateral arcus senilis, oropharynx clear neck supple Lungs: clear to auscultation CV: RRR nl Sl S2 Abd: Soft/ non tender/ nondistended/ no HSM Ext: right femur rotated upwards, no edema Neuro: non focal Skin: no lesions Psych: awake alert, appropriate Objective Labs Result Diagrams: 12/25/17 03:01 12/25/17 03:01 Assessment & Plan Plan: Assessment/Plan Narrative: 1. Closed fracture of right hip: - Not a surgical candidate. - Continue PT/OT as tolerated. Still unstable and requires more PT/OT. Refuses to go to SNF therefore will eventually be discharged home 2. Osteoporosis: - Continue Calcium VitD/Bisphosphonate 3. HTN - BP stable - Continue Lisinopirl and Felodipine 4. Hx CVA - Continue ASA 5. Iron Deficiency Anemia - Continue Ferous Sulfate 6. Seizures - Continue Keppra and Phenytoin
--- NOTE | 2017-12-26 16:47 | PT.IPTN ---
Current Diagnoses Dehydration (12/25/17) Age-related osteoporosis without current pathological fracture (12/25/17) Unspecified abdominal pain (12/25/17) Vomiting, unspecified (12/25/17) Unspecified convulsions (12/25/17) Fracture of unspecified part of neck of right femur, initial encounter for closed fracture (12/25/17) Physical Therapy Treatment Note M2 PT-IP Current Condition Start: 12/25/17 14:59 Freq: NEEDED Status: Active Protocol: Document 12/25/17 14:59 RS (Rec: 12/25/17 15:04 RS [id number]) Physical Therapy Current Condition Current Condition Evaluation Date 12/25/17 Treatment Diagnosis impaired mobility - R hip fx Onset Date 12/24/17 Weight Bearing Status Weight Bearing Status Weight Bear as Tolerated M3 PT-IP Subjective Start: 12/25/17 14:59 Freq: NEEDED Status: Active Protocol: Document 12/26/17 16:22 LJ (Rec: 12/26/17 16:47 LJ [id number]) Subjective Physical Therapy Visit Type Type Treatment Note Visit Start Time 14:45 Visit Stop Time 15:30 Total Visit Minutes 45 Physical Therapy Visit Comments Patient Comments Pt requested to return to bed Therapy Pain Assessment Pain When Pain Assessed During Mobility Pain Present Pain Present Pain Reported M4 PT-IP Mobility and Gait Start: 12/25/17 14:59 Freq: NEEDED Status: Active Protocol: Document 12/26/17 16:22 LJ (Rec: 12/26/17 16:47 LJ [id number]) PT-Bed Mobility Assessment Sit to Supine Sit to Supine Minimal Assistance Moderate Assistance 1 Person Assistance Scooting Scooting Up and Down in Bed Moderate Assistance PT-Transfer Assessment Sit to and From Stand Sit to and from Stand Contact Guard Assistance 1 Person Assistance Equipment Transfer Assistive Device Gait Belt Front Wheeled Walker Transfers Transfer Destination Bed Transfer Technique Stand Step Pivot Transfer Ability Level of Assist Contact Guard Assistance 1 Person Assistance Use of Upper Extremities Comments Mobility Comments Pt in chair requesting to return to bed. Stood with SBA and cues for standing tall and using EUs . Pt took very long time to stand step pivot to bed appearing to have difficulty with motor planning more than strength. Pt able to transfer all weight to RLE during step pivot. Slight LOB to right x 1 while seated on EOB. Slight lean to the right during mobility. Required mod assist for scooting up in bed using rails and therapist assist. M5 PT-IP Objective Assessments Start: 12/25/17 14:59 Freq: NEEDED Status: Active Protocol: Document 12/25/17 15:40 RS (Rec: 12/25/17 15:57 RS [id number]) Orientation Orientation/Cognition Level of Alertness Confusional State Orientation Name Age Situation Language Function Ability Word Finding Difficulties Safety Awareness Decreased Safety Awareness Memory Description Short Term Impaired Comments would benefit from further cognitive testing Gross Range of Motion Upper Extremity ROM Assessment Within Functional Limits Lower Extremity ROM Impairments in resting pt's legs are rotated to the left (R hip internally rotated, L hip externally rotated), difficult to even get hips to neutral Strength Upper Extremity Strength Assessment Within Functional Limits Lower Extremity Strength Assessment Right Impaired Comments Strength Comments RLE with significant pain related weakness M6 PT-IP Treatment Start: 12/25/17 14:59 Freq: NEEDED Status: Active Protocol: Document 12/26/17 16:22 LJ (Rec: 12/26/17 16:47 LJ [id number]) Physical Therapy Treatment Education Education Provided Safety M7 PT-IP Assessment and Plan Start: 12/25/17 14:59 Freq: NEEDED Status: Active Protocol: Document 12/26/17 16:22 LJ (Rec: 12/26/17 16:47 LJ [id number]) PT Summary Assessment and Plan Summary Impairments Pain Strength Balance Coordination Cognition Bed Mobility Transfers Gait Activity Tolerance Assessment Summary Pt able to stand with SBA w/o scooting to edge of chair using UE to push off chair. Using very small steps with multiple rest breaks and cognition difficulties, pt stood for 20 minutes with the walker while moving from chair to bed. Required mod assist for bed mobility d/t fatigue and pain. Slight lean to right during step to right which required cues for leaning toward the left to make it easier to lift RLE. Appears much less confused than during am treatment. Goals Bed Mobility Goal Minimal Assistance Transfer Goal Minimal Assistance Front Wheeled Walker Days to Meet Goals 3 Frequency of Treatment Frequency Of Treatment Twice a Day Treatment Plan Physical Therapy Treatment Plan Bed Mobility Training Transfer Training Therapeutic Exercise Balance Retraining Discharge Planning Recommendations To Nursing Amount of Assist Needed 1 Person Assist Discharge Recommendations PT Discharge Recommendations SNF Rehab Other Discharge Recommendations if going home would need 2 person 23/10 assist Equipment Needed for Home Before wheelchair Discharge
[2017-12-26] MEDS: MIRTAZAPINE 15 MG TABLET 30 MG PO (20:30)
[2017-12-27] VITALS (13 sets, daily range): BP systolic 114–147; BP diastolic 55–87; PULSE 67–79; RESP 12–18; TEMP 36.5–37.2; O2SAT 93–98
--- NOTE | 2017-12-27 09:56 | OT.IP.TRT ---
Current Diagnoses Dehydration (12/25/17) Age-related osteoporosis without current pathological fracture (12/25/17) Unspecified abdominal pain (12/25/17) Vomiting, unspecified (12/25/17) Unspecified convulsions (12/25/17) Fracture of unspecified part of neck of right femur, initial encounter for closed fracture (12/25/17) Occupational Therapy Treatment Note M2 OT-IP Current Condition Start: 12/26/17 12:31 Freq: Status: Active Protocol: Document 12/26/17 12:32 [facility] (Rec: 12/26/17 13:04 [facility] [email or web address]) Occupational Therapy Current Condition Current Condition Evaluation Date 12/26/17 Treatment Diagnosis Right Hip FX, weakness, s/p GLF Diagnosis Onset Date 12/25/17 Weight Bearing Status Weight Bearing Status Weight Bear as Tolerated M3 OT- IP Subjective and Pain Start: 12/26/17 12:31 Freq: Status: Active Protocol: Document 12/27/17 09:43 [facility] (Rec: 12/27/17 09:56 [facility] [email or web address]) OT- Subjective Occupational Therapy Visit Type Type Treatment Note Visit Start Time 08:53 Visit Stop Time 09:23 Total Visit Minutes 30 Occupational Therapy Visit Comments Patient/Caregiver Goals Pt would like to go home when medically stable. OT Pain Assessment Pain When Pain Assessed During Mobility Pain Present Pain Present Pain Reported Location Right Hip Intensity 7 Scale Used Numeric (1 - 10) Description Aching With Movement Pain Behaviors Facial Grimacing Wincing Management Techniques Re-positioning Timing of Activity with Medications M4 OT- IP ADL's Start: 12/26/17 12:31 Freq: Status: Active Protocol: Document 12/27/17 09:43 [facility] (Rec: 12/27/17 09:56 [facility] [email or web address]) OT LOV-Hisd-Mxegxvh Comments OT Self-Feeding Comments Increased time to eat. OT ADL-Grooming Comments OT Grooming Comments Pt able to wash hands and face while sitting on the toilet. OT ADL-Dressing General Eval Lower Body Dressing Ability Maximum Assistance Areas Needing Assistance Socks Comments OT Dressing Comments Pt would need MAX A for LB dressing due to difficulty standing. OT ADL-Toileting General Evaluation Toileting Ability Maximum Assistance Areas Needing Assistance Manage Clothing Perform Perineal Hygiene Comments OT Toileting Comments Assist for pericare needs and assist to help pull up brief. OT ADL-Bathing Bathing Type Bathing Type Sponge Bath General Evaluation Bathing Ability Moderate Assistance Areas Needing Assistance Wash/Dry Back Wash/Dry Perineal Area Wash/Dry Lower Extremities Comments OT Bathing Comments Pt able to assist for sponge bathing 50% while sitting on the toilet. M6 OT- IP Functional Cognition Start: 12/26/17 12:31 Freq: Status: Active Protocol: Document 12/27/17 09:43 [facility] (Rec: 12/27/17 09:56 [facility] [email or web address]) Cognitive Factors Limiting Selfcare Function Cognitive Ability Level of Alertness Alert Patient Orientation Name Place Situation Attention Span Ability Capable of Focused Attention Capable of Sustained Attention Ability to Follow Commands Able to Follow One Step Commands with Increased Time Memory Description Working Impaired Problem Solving Ability Needs Assist to Identify Solutions Cognitive Comments Cognitive Assessment Comments Pt needing increased time to follow directions and process information, pt has history of old CVA. Pt needs simple concrete commands. OT- Vision and Hearing OT- Hearing Assessment OT- Hearing Assessment WFL M7 OT- IP Mobility and Balance Start: 12/26/17 12:31 Freq: Status: Active Protocol: Document 12/27/17 09:43 [facility] (Rec: 12/27/17 09:56 [facility] [email or web address]) OT- Bed Mobility Assessment Supine to Sit Supine to Sit Assist Moderate Assistance 1 Person Assistance Scooting Scooting to Edge of Bed Moderate Assistance 1 Person Assistance OT-Transfer Assessment Sit to and From Stand Sit to and from Stand Moderate Assistance Maximum Assistance 1 Person Assistance Transfers Transfer Ability Moderate Assistance 1 Person Assistance Technique Transfer Destination Chair Toilet Transfer Technique Stand Step Pivot Devices Transfer Assistive Devices Gait Belt Front Wheeled Walker Comments Mobility Comments Pt now MOD A x 1, assist for vc and tactile cues to move his legs, assist to guide FWW as tends to have FWW to close to him while walking, MAX A to stand from lower surfaces. Pending fatigue at times will need two person assist for toileting one person to stand and another for OT- Balance Assessment Sitting Balance and Reactions Static Sitting Balance Ability Normal Dynamic Sitting Balance Ability Good Standing Balance and Reactions Static Standing Balance Ability Fair Comments Other Balance Tests/Deviations/Treatment Better sitting balance today : while sitting on toilet and recliner. M8 OT- IP Objective Assessments Start: 12/26/17 12:31 Freq: Status: Active Protocol: Document 12/26/17 12:32 [facility] (Rec: 12/26/17 13:04 [facility] [email or web address]) OT Gross Range of Motion Upper Extremity Range of Motion ROM Impairments Pt shoulder flexion 0-95, arthritic changes in hands but able to use for FMS of set-up for lunch tray. OT Strength Comments Strength Comments BUE strength 4-/5 for RUE form proximal to distal and LUE 4- /5 to 4/5 for proximal to distal. M9 OT- IP Assessment and Plan Start: 12/26/17 12:31 Freq: Status: Active Protocol: Document 12/27/17 09:43 [facility] (Rec: 12/27/17 09:56 [facility] [email or web address]) OT Summary Assessment and Plan Summary OT Impairments Pain Range of Motion Strength Balance Functional Cognition Functional Mobility Grooming Dressing Toileting Bathing Toilet Transfers Shower Transfers Progress Towards Goals Slow Progress due to Pain Slow Progress due to Activity Tolerance Slow Progress due to Cognition Assessment Summary Pt main barriers continues to be pain, decreased motor planning, and now needing from 1-2 person assist for needs. Pt would benefit from skilled rehab but refuses to go. Therefore, awaiting family to come for training to see if they are able to provide adequate assist. Goals Days to Meet Goals 7 Frequency of Treatment Frequency Of Treatment Once a Day Treatment Plan OT Treatment Plan ADL Training Functional Cognition Training Functional Mobility Patient/Family Education Discharge Planning Other Treatment Recommendations and Next Family training. Treatment Focus Discharge Recommendations OT Discharge Recommendations SNF Rehab Other Discharge Recommendations Pending family training, pt may be able to go home if family able to provide enough assist for pt. Home Equipment Needs Pt states has BSC already at home.
[2017-12-27] MEDS: DOCUSATE 100 MG CAPSULE PO ×2 (10:20→21:14)
[2017-12-27] MEDS: CALCIUM CARB/VIT D3 500/200 TABLET 1 EACH PO ×2 (10:26→17:31)
[2017-12-27] MEDS: levETIRAcetam 250 MG TABLET 500 MG PO ×2 (10:27→21:14)
--- NOTE | 2017-12-27 12:00 | PT.IPTN ---
Current Diagnoses Dehydration (12/25/17) Age-related osteoporosis without current pathological fracture (12/25/17) Unspecified abdominal pain (12/25/17) Vomiting, unspecified (12/25/17) Unspecified convulsions (12/25/17) Fracture of unspecified part of neck of right femur, initial encounter for closed fracture (12/25/17) Physical Therapy Treatment Note M2 PT-IP Current Condition Start: 12/25/17 14:59 Freq: NEEDED Status: Active Protocol: Document 12/25/17 14:59 RS (Rec: 12/25/17 15:04 RS [id number]) Physical Therapy Current Condition Current Condition Evaluation Date 12/25/17 Treatment Diagnosis impaired mobility - R hip fx Onset Date 12/24/17 Weight Bearing Status Weight Bearing Status Weight Bear as Tolerated M3 PT-IP Subjective Start: 12/25/17 14:59 Freq: NEEDED Status: Active Protocol: Document 12/27/17 10:40 [facility] (Rec: 12/27/17 12:00 [facility] [id number]) Subjective Physical Therapy Visit Type Type Treatment Note Visit Start Time 10:40 Visit Stop Time 10:58 Total Visit Minutes 18 Number of DAIRY WORKER Visits 3 Physical Therapy Visit Comments Patient Comments Pt requested to return to bed Therapy Pain Assessment Pain When Pain Assessed During Mobility Pain Present Pain Present Pain Reported Location Right Hip Intensity 5 Scale Used Numeric (1 - 10) Pain Behaviors Facial Grimacing Moaning M4 PT-IP Mobility and Gait Start: 12/25/17 14:59 Freq: NEEDED Status: Active Protocol: Document 12/27/17 10:40 [facility] (Rec: 12/27/17 12:00 [facility] [id number]) PT-Bed Mobility Assessment Sit to Supine Sit to Supine Moderate Assistance 1 Person Assistance Scooting Scooting Up and Down in Bed Moderate Assistance PT-Transfer Assessment Sit to and From Stand Sit to and from Stand Minimal Assistance 2 Person Assistance Use of Upper Extremities Equipment Transfer Assistive Device Gait Belt Front Wheeled Walker Transfers Transfer Destination Bed Transfer Technique Stand Step Pivot Transfer Ability Level of Assist Contact Guard Assistance 1 Person Assistance Use of Upper Extremities Comments Mobility Comments Pt continues to need increased time for mobility needing verbal and tactile cues for posture and cues for hand placement as hand changes from arm of chair to walker. Pt needed verbal cues for step sequencing one command at a time. M5 PT-IP Objective Assessments Start: 12/25/17 14:59 Freq: NEEDED Status: Active Protocol: Document 12/25/17 15:40 RS (Rec: 12/25/17 15:57 RS [id number]) Orientation Orientation/Cognition Level of Alertness Confusional State Orientation Name Age Situation Language Function Ability Word Finding Difficulties Safety Awareness Decreased Safety Awareness Memory Description Short Term Impaired Comments would benefit from further cognitive testing Gross Range of Motion Upper Extremity ROM Assessment Within Functional Limits Lower Extremity ROM Impairments in resting pt's legs are rotated to the left (R hip internally rotated, L hip externally rotated), difficult to even get hips to neutral Strength Upper Extremity Strength Assessment Within Functional Limits Lower Extremity Strength Assessment Right Impaired Comments Strength Comments RLE with significant pain related weakness M6 PT-IP Treatment Start: 12/25/17 14:59 Freq: NEEDED Status: Active Protocol: Document 12/26/17 16:22 LJ (Rec: 12/26/17 16:47 LJ [id number]) Physical Therapy Treatment Education Education Provided Safety M7 PT-IP Assessment and Plan Start: 12/25/17 14:59 Freq: NEEDED Status: Active Protocol: Document 12/27/17 10:40 [facility] (Rec: 12/27/17 12:00 [facility] [id number]) PT Summary Assessment and Plan Summary Impairments Pain Strength Balance Coordination Cognition Bed Mobility Transfers Gait Activity Tolerance Assessment Summary Pt continues to move slowly with all mobility and needs one step commands for hand placement and foot sequencing during step pivot transfer. Goals Bed Mobility Goal Minimal Assistance Transfer Goal Minimal Assistance Front Wheeled Walker Days to Meet Goals 3 Frequency of Treatment Frequency Of Treatment Twice a Day Treatment Plan Physical Therapy Treatment Plan Bed Mobility Training Transfer Training Therapeutic Exercise Balance Retraining Discharge Planning Recommendations To Nursing Amount of Assist Needed 1 Person Assist Discharge Recommendations PT Discharge Recommendations SNF Rehab Other Discharge Recommendations if going home would need 2 person / assist Equipment Needed for Home Before wheelchair Discharge
[2017-12-27] MEDS: ENOXAPARIN 40 MG/0.4 ML SYRINGE SUBCUT (12:26)
[2017-12-27] MEDS: PANTOPRAZOLE 20 MG TABLET PO (13:45)
[2017-12-27] MEDS: LISINOPRIL 20 MG TABLET PO (13:45)
[2017-12-27] MEDS: SODIUM CHLORIDE 0.9% FLUSH 10 ML IV ×2 (13:45→21:14)
--- NOTE | 2017-12-27 14:49 | PT.IPTN ---
Current Diagnoses Dehydration (12/25/17) Age-related osteoporosis without current pathological fracture (12/25/17) Unspecified abdominal pain (12/25/17) Vomiting, unspecified (12/25/17) Unspecified convulsions (12/25/17) Fracture of unspecified part of neck of right femur, initial encounter for closed fracture (12/25/17) Physical Therapy Treatment Note M2 PT-IP Current Condition Start: 12/25/17 14:59 Freq: NEEDED Status: Active Protocol: Document 12/25/17 14:59 RS (Rec: 12/25/17 15:04 RS [id number]) Physical Therapy Current Condition Current Condition Evaluation Date 12/25/17 Treatment Diagnosis impaired mobility - R hip fx Onset Date 12/24/17 Weight Bearing Status Weight Bearing Status Weight Bear as Tolerated M3 PT-IP Subjective Start: 12/25/17 14:59 Freq: NEEDED Status: Active Protocol: Document 12/27/17 13:28 [facility] (Rec: 12/27/17 14:49 [facility] [email or web address]) Subjective Physical Therapy Visit Type Type Treatment Note Visit Start Time 13:28 Visit Stop Time 13:52 Total Visit Minutes 24 Number of AREA OPERATIONS DIRECTOR Visits 4 Physical Therapy Visit Comments Patient Comments Pt willing to get out of bed and ambulate. present and stated she felt he should go to SNF rehab before going home . Would prefer [facility]. Patient Goals Go home. Therapy Pain Assessment Pain When Pain Assessed During Mobility Pain Present Pain Present Pain Reported Location Right Hip Intensity 5 Scale Used Numeric (1 - 10) Pain Behaviors Facial Grimacing Moaning M4 PT-IP Mobility and Gait Start: 12/25/17 14:59 Freq: NEEDED Status: Active Protocol: Document 12/27/17 13:28 [facility] (Rec: 12/27/17 14:49 [facility] [email or web address]) PT-Bed Mobility Assessment Supine to Sit Supine to Sit Moderate Assistance 1 Person Assistance Sit to Supine Sit to Supine Moderate Assistance 1 Person Assistance Scooting Scooting Up and Down in Bed Moderate Assistance PT-Transfer Assessment Sit to and From Stand Sit to and from Stand Moderate Assistance 1 Person Assistance Use of Upper Extremities Equipment Transfer Assistive Device Gait Belt Front Wheeled Walker Transfers Transfer Destination Chair Transfer Technique ambulated with chair follow Transfer Ability Level of Assist Moderate Assistance 1 Person Assistance Use of Upper Extremities Comments Mobility Comments Pt is requiring Mod A OOB this afternoon. Gait Assessment Gait Gait Assistance Required: Minimum Assistance 1 Person Assist Distance (Feet) 4 Able to Maintain Weight Bearing Status Yes During Gait Assistive Devices Assistive Device Gait Belt Front Wheeled Walker Orthotic/Prosthetic Devices or Brace: No Gait Deviations General Gait Pattern Decreased Stride Length Decreased Feet Clearance Flexed Trunk Lateral Trunk Lean Narrow Based Gait Factors Limiting Gait Function Factors Limiting Gait Function Decreased Activity Tolerance Decreased Strength Difficulty Following Directions Pain Poor Balance Poor Safety Awareness Comments Gait Comments Pt needs Min A and verbal cues for step sequencing. Stair Climbing Assessment Comments Stair Climbing Comments not able to perform PT-Balance Assessment Sitting Balance and Reactions Static Sitting Balance Ability Good Dynamic Sitting Balance Ability Good Standing Balance and Reactions Static Standing Balance Ability Poor Dynamic Standing Balance Ability Poor Device Used FWW M5 PT-IP Objective Assessments Start: 12/25/17 14:59 Freq: NEEDED Status: Active Protocol: Document 12/25/17 15:40 RS (Rec: 12/25/17 15:57 RS [id number]) Orientation Orientation/Cognition Level of Alertness Confusional State Orientation Name Age Situation Language Function Ability Word Finding Difficulties Safety Awareness Decreased Safety Awareness Memory Description Short Term Impaired Comments would benefit from further cognitive testing Gross Range of Motion Upper Extremity ROM Assessment Within Functional Limits Lower Extremity ROM Impairments in resting pt's legs are rotated to the left (R hip internally rotated, L hip externally rotated), difficult to even get hips to neutral Strength Upper Extremity Strength Assessment Within Functional Limits Lower Extremity Strength Assessment Right Impaired Comments Strength Comments RLE with significant pain related weakness M6 PT-IP Treatment Start: 12/25/17 14:59 Freq: NEEDED Status: Active Protocol: Document 12/26/17 16:22 LJ (Rec: 12/26/17 16:47 LJ [id number]) Physical Therapy Treatment Education Education Provided Safety M7 PT-IP Assessment and Plan Start: 12/25/17 14:59 Freq: NEEDED Status: Active Protocol: Document 12/27/17 13:28 [facility] (Rec: 12/27/17 14:49 [facility] [email or web address]) PT Summary Assessment and Plan Summary Impairments Pain Strength Balance Coordination Cognition Bed Mobility Transfers Gait Activity Tolerance Assessment Summary Pt needs Mod A for all bed mobility and Min A for gait. Pt moves slowly and states he is below his baseline. Pt would highly benefit from SNF rehab for strengthing before returning home. Goals Bed Mobility Goal Minimal Assistance Transfer Goal Minimal Assistance Front Wheeled Walker Days to Meet Goals 3 Frequency of Treatment Frequency Of Treatment Twice a Day Treatment Plan Physical Therapy Treatment Plan Bed Mobility Training Transfer Training Therapeutic Exercise Balance Retraining Discharge Planning Recommendations To Nursing Amount of Assist Needed 1 Person Assist Discharge Recommendations PT Discharge Recommendations SNF Rehab Other Discharge Recommendations if going home would need 2 person 23/10 assist Equipment Needed for Home Before wheelchair Discharge
--- NOTE | 2017-12-27 15:18 | PM.PN.1 ---
Subjective Date Patient Seen: 12/27/17 Time Patient Seen: 15:19 Interval history: Patient seen at bedside. Doing ok. Denies any pain. Keeps working with PT. No overnight events. Exam Vital Signs (past 8 hours): - 12/27/17 07:35 12/27/17 13:25 Temperature 98.2 F 98.3 F Pulse Rate 72 79 Respiratory Rate 12 16 Blood Pressure 114/78 124/55 L Pulse Oximetry 98 97 Oxygen Delivery Method Room Air Oxygen Flow Rate 0 Narrative Exam Narrative: General: Pleasant male in no acute distress HEENT: NC/AT, EOMI, bilateral arcus senilis, oropharynx clear neck supple Lungs: clear to auscultation CV: RRR nl Sl S2 Abd: Soft/ non tender/ nondistended/ no HSM Ext: right femur rotated upwards, no edema Neuro: non focal Skin: no lesions Psych: awake alert, appropriate Objective Labs Result Diagrams: 12/25/17 03:01 12/25/17 03:01 Assessment & Plan Plan: Assessment/Plan Narrative: 72yo M with PMH of HTN, CVA, Seizure, and FRANC presented to ED after a fall. He was found to have closed R hip fracture. Admitted for further management. 1. Closed fracture of right hip: - Not a surgical candidate. - Continue PT/OT as tolerated. Still unstable and requires more PT/OT. - Patient now is interested to go to SNF for further therapy however his insurance may not cover...pending placement resolution 2. Osteoporosis: - Continue Calcium VitD/Bisphosphonate 3. HTN - BP stable - Continue Lisinopirl and Felodipine 4. Hx CVA - Continue ASA 5. Iron Deficiency Anemia - Continue Ferous Sulfate 6. Seizures - Continue Keppra and Phenytoin
--- NOTE | 2017-12-27 16:10 | PC.NURSE ---
Updated of medications being used in hospital. Upon review, Pt is not taking home medication Dilantin. Updated to MAY.
[2017-12-27] MEDS: MIRTAZAPINE 15 MG TABLET 30 MG PO (21:14)
[2017-12-27] MEDS: PHENYTOIN ER 100 MG CAPSULE PO (21:14)
[2017-12-28] VITALS (8 sets, daily range): BP systolic 102–139; BP diastolic 58–87; PULSE 53–76; RESP 16–18; TEMP 36.7–37.2; O2SAT 94–98
[2017-12-28 07:32] LABS: Add Manual Diff / Slide Review NO; Basophils Percent Auto 0.3 % (0-2); Eosinophils Percent Auto 5.9 % (2-4); Hematocrit 33.1 % (41-53); Hemoglobin 11.5 g/dL (13.5-17.5); Lymphocytes Percent Auto 34.5 % (25-40); Mean Corpuscular HGB Conc 34.7 % (30-36); Mean Corpuscular Hemoglobin 31.3 PG (26-34); Mean Corpuscular Volume 90.4 fL (80-100); Monocytes Percent Auto 11.5 % (3-14); Neutrophils Absolute Auto 2400 /uL (3000-5900); Neutrophils Percent Auto 47.8 % (50-75); Platelet Count 147 X10^3/uL (150-400); Red Blood Cell Count 3.66 X10^6/uL (4.5-5.9); Red Cell Distribution Width 14.1 % (11.6-14.8); White Blood Cell Count 5.1 X10^3/uL (4.5-11.0)
[2017-12-28 07:47] LABS: Blood Urea Nitrogen 27 mg/dL (9-20); Carbon Dioxide 31 mmol/L (22-32); Chloride 106 mmol/L (98-107); Estimated Glomerular Filt Rate > 60.0 mL/min (>60); Glucose 85 mg/dL (80-110); HEMOLYSIS < 15 (0-50); Potassium 3.9 mmol/L (3.4-5.1); Sodium 146 mmol/L (137-145)
--- NOTE | 2017-12-28 08:51 | CM.DPC ---
Referral faxed and message left at [facility] per Kelsy
[2017-12-28] MEDS: SODIUM CHLORIDE 0.9% FLUSH 10 ML IV (09:11)
[2017-12-28] MEDS: LISINOPRIL 20 MG TABLET PO (09:13)
[2017-12-28] MEDS: ENOXAPARIN 40 MG/0.4 ML SYRINGE SUBCUT (09:13)
[2017-12-28] MEDS: FELODIPINE ER 5 MG TAB 10 MG PO (09:13)
[2017-12-28] MEDS: PHENYTOIN ER 100 MG CAPSULE PO ×2 (09:13→20:36)
[2017-12-28] MEDS: DOCUSATE 100 MG CAPSULE PO ×2 (09:14→20:37)
[2017-12-28] MEDS: levETIRAcetam 250 MG TABLET 500 MG PO ×2 (09:14→20:36)
[2017-12-28] MEDS: FERROUS SULFATE 325 MG TABLET PO (09:14)
[2017-12-28] MEDS: PANTOPRAZOLE 20 MG TABLET PO (09:14)
[2017-12-28] MEDS: CALCIUM CARB/VIT D3 500/200 TABLET 1 EACH PO ×2 (09:14→16:30)
[2017-12-28] MEDS: HYDROCODONE/ACET 5/325 TABLET 1 TAB PO (12:15)
--- NOTE | 2017-12-28 14:24 | PM.PN.1 ---
Subjective Date Patient Seen: 12/28/17 Time Patient Seen: 14:24 Interval history: Patient seen at bedside. No overnight events. Patient and family would like to go to rehab however insurance would not cover. Working on Home health plan. Exam Vital Signs (past 8 hours): - 12/28/17 07:30 12/28/17 09:13 12/28/17 13:50 Temperature 98.2 F 99.0 F Pulse Rate 60 76 68 Respiratory Rate 16 16 Blood Pressure 139/87 122/69 109/68 Pulse Oximetry 98 97 Oxygen Delivery Method Room Air Oxygen Flow Rate 0 Narrative Exam Narrative: General: Pleasant male in no acute distress HEENT: NC/AT, EOMI, bilateral arcus senilis, oropharynx clear neck supple Lungs: clear to auscultation CV: RRR nl Sl S2 Abd: Soft/ non tender/ nondistended/ no HSM Ext: right femur rotated upwards, no edema Neuro: non focal Skin: no lesions Psych: awake alert, appropriate Objective Labs Result Diagrams: 12/28/17 06:35 12/28/17 06:35 Labs: Laboratory Results - last 24 hr 12/28/17 12/28/17 06:35 06:35 WBC 5.1 RBC 3.66 L Hgb 11.5 L Hct 33.1 L MCV 90.4 MCH 31.3 MCHC 34.7 RDW 14.1 Plt Count 147 L Neut % (Auto) 47.8 L Lymph % (Auto) 34.5 Evangeline % (Auto) 11.5 Eos % (Auto) 5.9 H Baso % (Auto) 0.3 Neut # (Auto) 2400 L Sodium 146 H Potassium 3.9 Chloride 106 Carbon Dioxide 31 BUN 27 H Creatinine 0.90 Estimated GFR > 60.0 BUN/Creatinine Ratio 30.0 H Glucose 85 Calcium 9.0 Assessment & Plan Plan: Assessment/Plan Narrative: 72yo M with PMH of HTN, CVA, Seizure, and FRANC presented to ED after a fall. He was found to have closed R hip fracture. Admitted for further management. 1. Closed fracture of right hip: - Not a surgical candidate. - Continue PT/OT as tolerated. Still unstable and requires more PT/OT. - Patient now is interested to go to SNF for further therapy however his insurance may not cover...pending home health arrangement 2. Osteoporosis: - Continue Calcium VitD/Bisphosphonate 3. HTN - BP stable - Continue Lisinopirl and Felodipine 4. Hx CVA - Continue ASA 5. Iron Deficiency Anemia - Continue Ferous Sulfate 6. Seizures - Continue Keppra and Phenytoin
--- NOTE | 2017-12-28 16:21 | OT.IP.TRT ---
Current Diagnoses Dehydration (12/25/17) Age-related osteoporosis without current pathological fracture (12/25/17) Unspecified abdominal pain (12/25/17) Vomiting, unspecified (12/25/17) Unspecified convulsions (12/25/17) Fracture of unspecified part of neck of right femur, initial encounter for closed fracture (12/25/17) Occupational Therapy Treatment Note M2 OT-IP Current Condition Start: 12/26/17 12:31 Freq: Status: Active Protocol: Document 12/26/17 12:32 [facility] (Rec: 12/26/17 13:04 [facility] [id number]) Occupational Therapy Current Condition Current Condition Evaluation Date 12/26/17 Treatment Diagnosis Right Hip FX, weakness, s/p GLF Diagnosis Onset Date 12/25/17 Weight Bearing Status Weight Bearing Status Weight Bear as Tolerated M3 OT- IP Subjective and Pain Start: 12/26/17 12:31 Freq: Status: Active Protocol: Document 12/28/17 16:19 [facility] (Rec: 12/28/17 16:21 [facility] [id number]) OT- Subjective Occupational Therapy Visit Type Type Patient Unavailable Notes Pt just finishing up with PT and wanting to get back into bed, therefore to see pt tomorrow for family training.
[2017-12-28] MEDS: SODIUM CHLORIDE 0.45% 1,000 ML 84 ML IV (16:26)
--- NOTE | 2017-12-28 16:35 | CM.DPC ---
DCP: continued: Case received and have worked for the last 2 days to help facilitate a safe and appropriate d/c plan for pt. Have discussed in Team Rounds and also with CM Hub Cutter Nila. Barriers to d/c noted: Admission Status order: Observation. OT and PT recommending snf stay Lack of access to pt's spouse Fariba and then Fariba's lack of understanding re admission status and what this meant for the SNF financial responsibilities. Pt has hx of CVA and other comorbidities and the fall with fractured hip , non operable, has impacted his already compromised functional abilities. Was able to meet at length with Fariba yesterday afternoon about 1500. Conferred with UR team re her lack of clarity re the OBS status but no one was available at that time for discussion with her. Found LIAO form on pt's bedside table so did give it to her to review and with plan for UR to see her today for further discussion if need be. Discussed need for a safe plan: Fariba stated that a pvt pay at snf level not possible for the family. Discussed option of home with [facility]HS and perhaps others to come in to help out. At that point Fariba shared that their adult son Gee lives at the home and is available to assist. She also said that [facility] had been out in the past and this would be HH agency of choice. Agreed to meet early this morning 0730 for further discussion and Fariba then had to leave for appts all day in [place]. Met this morning with OT Payton. Requested that therapy team consider changing the focus to a home plan. She readily agreed and joined in the 0730 meeting. Of note: followed up on LIAO issues: Fariba said she understood the issues after reading the paperwork and did not need UR team to see her. P: PT and OT continued to work with pt today. Fariba and Gee to be in tomorrow morning for caregiver training with likelihood of d/c tomorrow if all goes as planned. Payton discussed this in detail with Fariba. [facility] was given referral/ FACE/FACE paperwork completed by Dr. Muhammad. PCP: determined to be whomever is assigned at the time at the [facility]. Oder obtained. Need: alert [facility] as to discharge date. P: home as above and if deemed a safe d/c plan for pt. Pt does have a w/c that he will be needing to access as his fracture heals. He has a RTS and walkers. DCP team to follow closely.
--- NOTE | 2017-12-28 17:25 | PT.IPTN ---
Current Diagnoses Dehydration (12/25/17) Age-related osteoporosis without current pathological fracture (12/25/17) Unspecified abdominal pain (12/25/17) Vomiting, unspecified (12/25/17) Unspecified convulsions (12/25/17) Fracture of unspecified part of neck of right femur, initial encounter for closed fracture (12/25/17) Physical Therapy Treatment Note M2 PT-IP Current Condition Start: 12/25/17 14:59 Freq: NEEDED Status: Active Protocol: Document 12/25/17 14:59 RS (Rec: 12/25/17 15:04 RS [id number]) Physical Therapy Current Condition Current Condition Evaluation Date 12/25/17 Treatment Diagnosis impaired mobility - R hip fx Onset Date 12/24/17 Weight Bearing Status Weight Bearing Status Weight Bear as Tolerated M3 PT-IP Subjective Start: 12/25/17 14:59 Freq: NEEDED Status: Active Protocol: Document 12/28/17 15:15 LJ (Rec: 12/28/17 17:25 LJ [id number]) Subjective Physical Therapy Visit Type Type Treatment Note Visit Start Time 15:15 Visit Stop Time 16:10 Total Visit Minutes 55 Number of STAGE SETTINGS PAINTER Visits 5 Physical Therapy Visit Comments Patient Comments Pt willing to get out of bed and ambulate around room. Unwilling to go into hallway Therapy Pain Assessment Pain When Pain Assessed During Mobility Pain Present Pain Present Pain Reported M4 PT-IP Mobility and Gait Start: 12/25/17 14:59 Freq: NEEDED Status: Active Protocol: Document 12/28/17 15:15 LJ (Rec: 12/28/17 17:25 LJ [id number]) PT-Bed Mobility Assessment Supine to Sit Supine to Sit Moderate Assistance Head of Bed Elevated Sit to Supine Sit to Supine Moderate Assistance 1 Person Assistance Scooting Scooting Up and Down in Bed Minimal Assistance PT-Transfer Assessment Sit to and From Stand Sit to and from Stand Minimal Assistance Use of Upper Extremities Equipment Transfer Assistive Device Gait Belt Front Wheeled Walker Transfers Transfer Destination Bed Transfer Technique Forward/Backward Scoot Transfer Ability Level of Assist Minimal Assistance 2 Person Assistance Use of Upper Extremities Comments Mobility Comments Pt required assist with RLE in getting into and out of bed. Gait Assessment Gait Gait Assistance Required: Minimum Assistance 1 Person Assist Distance (Feet) 20 Able to Maintain Weight Bearing Status Yes During Gait Assistive Devices Assistive Device Gait Belt Front Wheeled Walker Orthotic/Prosthetic Devices or Brace: No Gait Deviations General Gait Pattern Decreased Stride Length Decreased Feet Clearance Flexed Trunk Lateral Trunk Lean Narrow Based Gait Factors Limiting Gait Function Factors Limiting Gait Function Decreased Activity Tolerance Decreased Strength Difficulty Following Directions Pain Poor Balance Poor Safety Awareness Comments Gait Comments Pt able to march in place using FWW and perform short SLS on bilat LEs. Very slow ambulation in room. Stair Climbing Assessment Comments Stair Climbing Comments not able to perform M5 PT-IP Objective Assessments Start: 12/25/17 14:59 Freq: NEEDED Status: Active Protocol: Document 12/25/17 15:40 RS (Rec: 12/25/17 15:57 RS [id number]) Orientation Orientation/Cognition Level of Alertness Confusional State Orientation Name Age Situation Language Function Ability Word Finding Difficulties Safety Awareness Decreased Safety Awareness Memory Description Short Term Impaired Comments would benefit from further cognitive testing Gross Range of Motion Upper Extremity ROM Assessment Within Functional Limits Lower Extremity ROM Impairments in resting pt's legs are rotated to the left (R hip internally rotated, L hip externally rotated), difficult to even get hips to neutral Strength Upper Extremity Strength Assessment Within Functional Limits Lower Extremity Strength Assessment Right Impaired Comments Strength Comments RLE with significant pain related weakness M6 PT-IP Treatment Start: 12/25/17 14:59 Freq: NEEDED Status: Active Protocol: Document 12/26/17 16:22 LJ (Rec: 12/26/17 16:47 LJ [id number]) Physical Therapy Treatment Education Education Provided Safety M7 PT-IP Assessment and Plan Start: 12/25/17 14:59 Freq: NEEDED Status: Active Protocol: Document 12/28/17 15:15 LJ (Rec: 12/28/17 17:25 LJ [id number]) PT Summary Assessment and Plan Potential Status of Condition at Evaluation Evolving Summary Impairments Pain Strength Balance Coordination Cognition Bed Mobility Transfers Gait Activity Tolerance Assessment Summary Pt needs Sorin for bed mobility and transfers d/t pain and decreased strength. Improved balance, endurance and endurance Goals Bed Mobility Goal Minimal Assistance Transfer Goal Minimal Assistance Front Wheeled Walker Days to Meet Goals 3 Frequency of Treatment Frequency Of Treatment Twice a Day Treatment Plan Physical Therapy Treatment Plan Bed Mobility Training Transfer Training Therapeutic Exercise Balance Retraining Discharge Planning Recommendations To Nursing Amount of Assist Needed 1 Person Assist Discharge Recommendations Other Discharge Recommendations if going home would need 2 person 23/10 assist Equipment Needed for Home Before wheelchair Discharge
--- NOTE | 2017-12-28 17:26 | PT.IPTN ---
Current Diagnoses Dehydration (12/25/17) Age-related osteoporosis without current pathological fracture (12/25/17) Unspecified abdominal pain (12/25/17) Vomiting, unspecified (12/25/17) Unspecified convulsions (12/25/17) Fracture of unspecified part of neck of right femur, initial encounter for closed fracture (12/25/17) Physical Therapy Treatment Note M2 PT-IP Current Condition Start: 12/25/17 14:59 Freq: NEEDED Status: Active Protocol: Document 12/25/17 14:59 RS (Rec: 12/25/17 15:04 RS [id number]) Physical Therapy Current Condition Current Condition Evaluation Date 12/25/17 Treatment Diagnosis impaired mobility - R hip fx Onset Date 12/24/17 Weight Bearing Status Weight Bearing Status Weight Bear as Tolerated M3 PT-IP Subjective Start: 12/25/17 14:59 Freq: NEEDED Status: Active Protocol: Document 12/28/17 15:15 LJ (Rec: 12/28/17 17:25 LJ [id number]) Subjective Physical Therapy Visit Type Type Treatment Note Visit Start Time 15:15 Visit Stop Time 16:10 Total Visit Minutes 55 Number of METER READER INSPECTOR Visits 5 Physical Therapy Visit Comments Patient Comments Pt willing to get out of bed and ambulate around room. Unwilling to go into hallway Therapy Pain Assessment Pain When Pain Assessed During Mobility Pain Present Pain Present Pain Reported M4 PT-IP Mobility and Gait Start: 12/25/17 14:59 Freq: NEEDED Status: Active Protocol: Document 12/28/17 15:15 LJ (Rec: 12/28/17 17:25 LJ [id number]) PT-Bed Mobility Assessment Supine to Sit Supine to Sit Moderate Assistance Head of Bed Elevated Sit to Supine Sit to Supine Moderate Assistance 1 Person Assistance Scooting Scooting Up and Down in Bed Minimal Assistance PT-Transfer Assessment Sit to and From Stand Sit to and from Stand Minimal Assistance Use of Upper Extremities Equipment Transfer Assistive Device Gait Belt Front Wheeled Walker Transfers Transfer Destination Bed Transfer Technique Forward/Backward Scoot Transfer Ability Level of Assist Minimal Assistance 2 Person Assistance Use of Upper Extremities Comments Mobility Comments Pt required assist with RLE in getting into and out of bed. Gait Assessment Gait Gait Assistance Required: Minimum Assistance 1 Person Assist Distance (Feet) 20 Able to Maintain Weight Bearing Status Yes During Gait Assistive Devices Assistive Device Gait Belt Front Wheeled Walker Orthotic/Prosthetic Devices or Brace: No Gait Deviations General Gait Pattern Decreased Stride Length Decreased Feet Clearance Flexed Trunk Lateral Trunk Lean Narrow Based Gait Factors Limiting Gait Function Factors Limiting Gait Function Decreased Activity Tolerance Decreased Strength Difficulty Following Directions Pain Poor Balance Poor Safety Awareness Comments Gait Comments Pt able to march in place using FWW and perform short SLS on bilat LEs. Very slow ambulation in room. Stair Climbing Assessment Comments Stair Climbing Comments not able to perform M5 PT-IP Objective Assessments Start: 12/25/17 14:59 Freq: NEEDED Status: Active Protocol: Document 12/25/17 15:40 RS (Rec: 12/25/17 15:57 RS [id number]) Orientation Orientation/Cognition Level of Alertness Confusional State Orientation Name Age Situation Language Function Ability Word Finding Difficulties Safety Awareness Decreased Safety Awareness Memory Description Short Term Impaired Comments would benefit from further cognitive testing Gross Range of Motion Upper Extremity ROM Assessment Within Functional Limits Lower Extremity ROM Impairments in resting pt's legs are rotated to the left (R hip internally rotated, L hip externally rotated), difficult to even get hips to neutral Strength Upper Extremity Strength Assessment Within Functional Limits Lower Extremity Strength Assessment Right Impaired Comments Strength Comments RLE with significant pain related weakness M6 PT-IP Treatment Start: 12/25/17 14:59 Freq: NEEDED Status: Active Protocol: Document 12/26/17 16:22 LJ (Rec: 12/26/17 16:47 LJ [id number]) Physical Therapy Treatment Education Education Provided Safety M7 PT-IP Assessment and Plan Start: 12/25/17 14:59 Freq: NEEDED Status: Active Protocol: Document 12/28/17 15:15 LJ (Rec: 12/28/17 17:25 LJ [id number]) PT Summary Assessment and Plan Potential Status of Condition at Evaluation Evolving Summary Impairments Pain Strength Balance Coordination Cognition Bed Mobility Transfers Gait Activity Tolerance Assessment Summary Pt needs Sorin for bed mobility and transfers d/t pain and decreased strength. Improving balance and endurance Goals Bed Mobility Goal Minimal Assistance Transfer Goal Minimal Assistance Front Wheeled Walker Days to Meet Goals 3 Frequency of Treatment Frequency Of Treatment Twice a Day Treatment Plan Physical Therapy Treatment Plan Bed Mobility Training Transfer Training Therapeutic Exercise Balance Retraining Discharge Planning Recommendations To Nursing Amount of Assist Needed 1 Person Assist Discharge Recommendations Other Discharge Recommendations if going home would need 2 person 23/10 assist Equipment Needed for Home Before wheelchair Discharge
[2017-12-28] MEDS: MIRTAZAPINE 15 MG TABLET 30 MG PO (20:37)
[2017-12-29 01:58] VITALS: BP 152/74; PULSE 63; RESP 16; TEMP 36.5; O2SAT 98
[2017-12-29] MEDS: HYDROCODONE/ACET 5/325 TABLET 1 TAB PO (02:00)
[2017-12-29 03:14] VITALS: O2SAT 94
[2017-12-29] MEDS: SODIUM CHLORIDE 0.45% 1,000 ML 84 ML IV (04:28)
[2017-12-29 06:31] VITALS: BP 147/79; PULSE 67; RESP 16; TEMP 37; O2SAT 97
[2017-12-29 08:25] VITALS: BP 149/72; PULSE 57; RESP 18; TEMP 36.4; O2SAT 97
[2017-12-29] MEDS: ENOXAPARIN 40 MG/0.4 ML SYRINGE SUBCUT (08:44)
[2017-12-29] MEDS: CALCIUM CARB/VIT D3 500/200 TABLET 1 EACH PO (08:44)
[2017-12-29] MEDS: FELODIPINE ER 5 MG TAB 10 MG PO (08:44)
[2017-12-29] MEDS: FERROUS SULFATE 325 MG TABLET PO (08:44)
[2017-12-29] MEDS: PHENYTOIN ER 100 MG CAPSULE PO (08:44)
[2017-12-29] MEDS: DOCUSATE 100 MG CAPSULE PO (08:44)
[2017-12-29 08:45] VITALS: BP 149/82; PULSE 59
[2017-12-29] MEDS: levETIRAcetam 250 MG TABLET 500 MG PO (08:45)
[2017-12-29] MEDS: LISINOPRIL 20 MG TABLET PO (08:45)
[2017-12-29] MEDS: PANTOPRAZOLE 20 MG TABLET PO (08:46)
--- NOTE | 2017-12-29 10:30 | PT.IPTN ---
Current Diagnoses Dehydration (12/25/17) Age-related osteoporosis without current pathological fracture (12/25/17) Unspecified abdominal pain (12/25/17) Vomiting, unspecified (12/25/17) Unspecified convulsions (12/25/17) Fracture of unspecified part of neck of right femur, initial encounter for closed fracture (12/25/17) Physical Therapy Treatment Note M2 PT-IP Current Condition Start: 12/25/17 14:59 Freq: NEEDED Status: Active Protocol: Document 12/29/17 10:30 RCC (Rec: 12/29/17 10:58 RCC [id number]) Physical Therapy Current Condition Current Condition Evaluation Date 12/25/17 Treatment Diagnosis impaired mobility - R hip fx Onset Date 12/24/17 Weight Bearing Status Weight Bearing Status Weight Bear as Tolerated M3 PT-IP Subjective Start: 12/25/17 14:59 Freq: NEEDED Status: Active Protocol: Document 12/29/17 10:30 RCC (Rec: 12/29/17 10:58 RCC [id number]) Subjective Physical Therapy Visit Type Type Treatment Note Visit Start Time 10:06 Visit Stop Time 10:30 Total Visit Minutes 24 Notes and son present for family training @ 9 a.m., pt eating still and family agreed to wait until /p pt done with breakfast. Called back to room and initiated training. Number of PERMIT AGENT Visits 0 Physical Therapy Visit Comments Patient Comments Pt willing to get OOB. Pt notes small pain at rest, grimacing with movement. M4 PT-IP Mobility and Gait Start: 12/25/17 14:59 Freq: NEEDED Status: Active Protocol: Document 12/29/17 10:30 RCC (Rec: 12/29/17 10:58 RCC [id number]) PT-Bed Mobility Assessment Supine to Sit Supine to Sit 1 Person Assistance Scooting Scooting to Edge of Bed Moderate Assistance PT-Transfer Assessment Sit to and From Stand Sit to and from Stand 1 Person Assistance Use of Upper Extremities Equipment Transfer Assistive Device Gait Belt Front Wheeled Walker Transfers Transfer Destination Chair Transfer Technique Stand Step Pivot Transfer Ability Level of Assist Standby Assistance Comments Mobility Comments son assisted pt supine to sit with HOB elevated and PT supervision and cues. Son also performed STS with pt. Educated family on how to don/ doff gait belt, given gait belt to take home for assist with pt mobility and transfers ., Gait Assessment Gait Gait Assistance Required: Standby Assistance Distance (Feet) 10 Able to Maintain Weight Bearing Status Yes During Gait Assistive Devices Assistive Device Gait Belt Front Wheeled Walker Gait Deviations General Gait Pattern Antalgic Decreased Stride Length Decreased Feet Clearance Flexed Trunk Factors Limiting Gait Function Factors Limiting Gait Function Decreased Activity Tolerance Decreased Strength Pain Poor Balance Comments Gait Comments Pt tolerated gait well overall , although some increase in pain response, but able to WB through the RLE. PT-Balance Assessment Sitting Balance and Reactions Static Sitting Balance Ability Good Dynamic Sitting Balance Ability Fair Standing Balance and Reactions Static Standing Balance Ability Fair Dynamic Standing Balance Ability Fair Device Used FWW M5 PT-IP Objective Assessments Start: 12/25/17 14:59 Freq: NEEDED Status: Active Protocol: Document 12/25/17 15:40 RS (Rec: 12/25/17 15:57 RS [id number]) Orientation Orientation/Cognition Level of Alertness Confusional State Orientation Name Age Situation Language Function Ability Word Finding Difficulties Safety Awareness Decreased Safety Awareness Memory Description Short Term Impaired Comments would benefit from further cognitive testing Gross Range of Motion Upper Extremity ROM Assessment Within Functional Limits Lower Extremity ROM Impairments in resting pt's legs are rotated to the left (R hip internally rotated, L hip externally rotated), difficult to even get hips to neutral Strength Upper Extremity Strength Assessment Within Functional Limits Lower Extremity Strength Assessment Right Impaired Comments Strength Comments RLE with significant pain related weakness M6 PT-IP Treatment Start: 12/25/17 14:59 Freq: NEEDED Status: Active Protocol: Document 12/29/17 10:30 RCC (Rec: 12/29/17 10:58 RCC [id number]) Physical Therapy Treatment Exercises Exercises Ankle Pumps Quad Sets Short Arc Quads Education Education Provided Weight Bearing Status Safety M7 PT-IP Assessment and Plan Start: 12/25/17 14:59 Freq: NEEDED Status: Active Protocol: Document 12/29/17 10:30 RCC (Rec: 12/29/17 10:58 RCC [id number]) PT Summary Assessment and Plan Summary Progress Towards Goals Safe For Discharge Assessment Summary Son and of pt present during session, son able to assist pt getting OOB and with sit to stand appropriately, needing only initial cuing but demonstrated excellent care and follow through with instructions. Pt tolerated transfer and gait well, although short distance with gait, but family has a w/c for pt to use for longer distances. Pt is cleared to d/ c home when medically stable, recommend home health physical and occupational therapy, as well as 24/7 assistance ( assist with all mobility). Goals Bed Mobility Goal Minimal Assistance Transfer Goal Minimal Assistance Front Wheeled Walker Days to Meet Goals 3 Frequency of Treatment Frequency Of Treatment Twice a Day Treatment Plan Other Recommendations and Next Treatment if unable to d/c, recommend Focus continuation of gait training, bed mobility. Recommendations To Nursing Amount of Assist Needed 1 Person Assist Discharge Recommendations PT Discharge Recommendations Home with 24/7 Assist Home Health Equipment Needed for Home Before family reports they have a w/c Discharge and FWW @ home.
--- NOTE | 2017-12-29 11:36 | PM.DS.1 ---
History of Present Illness Date Patient Seen: 12/29/17 Time Patient Seen: 11:37 Chief complaint: FALL AT HOME BRUISING ON RIGHT HIP Narrative: 72-year old male with past medical history of CVA, hypertension, iron deficiency anemia, and seizure disorder presented to ED status post fall. As per patient he was sweeping the floors, had vigorous episode of coughing spell, which led him to fall on his right hip. Patient did not lose consciousness, hit his head, felt short of breath, had chest pain, nausea, emesis, bright red blood per rectum, burning urination, fevers, chills, cough, or headaches. 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 Closed fracture of Right Hip 2. Osteoporosis 3. HTN 4. Hx of CVA 5. Iron Deficiency Anemia 6. Seizures Hospital Course: In the emergency department patient's vital signs were stable. Hip x-ray and pelvic CT scan showed nondisplaced greater trochanteric fracture, and patient was admitted for further management. Once admitted, patient was evaluated by Orthopedic surgery, for whom surgery was not recommended. Patient was allowed to bear weight as tolerated and was working with physical therapy. For the 1st few days of admission, patient was too unstable to be ambulating on his own, and Physical therapy continued to recommend rehab. Patient initially refused rehab, however towards the last 2 days of admission changed his mind. Nevertheless, patient's insurance was not covering for inpatient stay rehab, therefore home health with PT OT has been ordered. Patient will be going home today with home health. Patient's hypertension was managed with Lisinopril And felodipine Patient has osteoporosis with managed with calcium, vitamin-D, and alendronate was added. Patient's iron-deficiency anemia was managed with ferrous sulfate Seizures were managed with resumption of Keppra and phenytoin, no seizures noted during this admission Status at Discharge Functional status at discharge: uses cane/walker Overall status at discharge: patient is not back to baseline Time Spent with Patient Less than 30 minutes Exam Vital Signs (past 8 hours): - 12/29/17 06:31 12/29/17 08:25 12/29/17 08:45 Temperature 98.6 F 97.5 F L Pulse Rate 67 57 L 59 L Respiratory Rate 16 18 Blood Pressure 147/79 H 149/72 H 149/82 H Pulse Oximetry 97 97 Oxygen Delivery Method Room Air Oxygen Flow Rate 0 Narrative Exam Narrative: Exam Narrative: General: Pleasant male in no acute distress HEENT: NC/AT, EOMI, bilateral arcus senilis, oropharynx clear neck supple Lungs: clear to auscultation CV: RRR nl Sl S2 Abd: Soft/ non tender/ nondistended/ no HSM Ext: right femur rotated upwards, no edema Neuro: non focal Skin: no lesions Psych: awake alert, appropriate Objective Labs Result Diagrams: 12/28/17 06:35 12/28/17 06:35 Discharge Plan Discharge Plan Discharge Problem: Closed fracture of right hip Patient Disposition: Home Discharge comment: HOME WITH HOME HEALTH PT/OT Discharge Med Rec/Prescriptions Prescriptions: New alendronate 70 mg Tablet 70 mg PO Tu@0730 30 Days Qty: 4 RF: 0 Continue omeprazole 20 MG tablet,delayed release (DR/EC) 20 mg PO QDAY Qty: 0 RF: 0 acetaminophen 160 MG/5 ML suspension 650 mg PO Q6HP PRN (Reason: pain) RF: 0 loratadine 10 MG tablet 10 mg PO QDAY RF: 0 mirtazapine 30 MG tablet 30 mg PO HS RF: 0 levetiracetam 500 mg tablet 500 mg PO BID RF: 0 lisinopril 20 mg tablet 20 mg PO DAILY RF: 0 phenytoin sodium extended 100 mg capsule 1 cap PO BID RF: 0 aspirin 81 mg tablet,delayed release (DR/EC) 1 tab PO DAILY RF: 0 fluoxetine 10 mg capsule 10 mg PO DAILY RF: 0 felodipine 10 mg tablet extended release 24 hr 1 tab PO DAILY RF: 0 ferrous sulfate 324 mg (65 mg iron) tablet,delayed release (DR/EC) 1 tab PO DAILY RF: 0 Disabled Parking Permit 1 ea miscellaneous DIRECTED RF: 0 Follow up/Referrals: Provider,Conversion [Non-Staff] - 1 Week (PLEASE FOLLOW UP WITH YOUR PRIMARY CARE DOCTOR WITHIN 7 DAYS OF DISCHARGE) Discharge Health Status Multidrug resistant organism: No MDRO Precautions: [place] Provider Discharge Instructions Diet: Diet as Tolerated Activity: PER HOME HEALTH Other treatments: weight bearing as tolerated Visit Report/Discharge Packet Visit Report Forms: Stroke Signs & Symptoms Discharge Data Attending Provider: Samuel Archer Admit Date/Time: 12/25/17 03:24
--- NOTE | 2017-12-29 12:31 | PC.NURSE ---
discharge order received, P.Yvette. was able to complete some teaching with family ( and son) this morning and patient's is eager to take patient home. IV dc'd intact. Discharge instructions reviewed with patient's and son, prescription given, they state understanding and have no further questions or concerns at this time. Patient's states she already has an appointment scheduled for follow up. Patient escorted out via wheelchair by FOURTH MATE with all belongings.
--- NOTE | 2017-12-29 12:44 | CM.DPC ---
Discharge orders received on patient. Family here this morning for training with PT. Plan is for d/c home with [facility]. [facility] notified of discharge. They had not received the F2F that was faxed yesterday so refaxed with progress note and face sheet today. They will contact patient tomorrow to set up Sunday visit. Contact info given to family to contact [facility] if [facility] are not contacted. Plan: Home with and son with [facility]
== END 2017-12-29 12:10 | disposition home or self-care (01) ==
LOC: ED 12-25 03:23 → AC 12-25 03:25
PROVIDERS: Internal Medicine; Admitting Provider Internal Medicine; Emergency Provider Emergency Medicine; Visit Provider Internal Medicine
DX: S72.001A Fracture of unspecified part of neck of right femur, initial encounter for closed fracture (principal); W18.39XA Other fall on same level, initial encounter; M81.0 Age-related osteoporosis without current pathological fracture; R56.9 Unspecified convulsions; E86.0 Dehydration; S70.01XA Contusion of right hip, initial encounter; I10 Essential (primary) hypertension; D50.9 Iron deficiency anemia, unspecified
CPT/HCPCS: 36415; 36591; 72192; 73502; 80048; 85025; 97110; 97116; 97162; 97166; 97530; 97535; 99283; 99285; G0378; J1650; J7050

== ENCOUNTER 2018-09-02 00:14 | Inpatient (IN) | payer MEDICARE, OTHER, SELFPAY ==
[2017-12-25 03:30] VITALS: BMI 16.9
[2018-09-02] VITALS (14 sets, daily range): BP systolic 146–196; BP diastolic 77–96; PULSE 51–63; RESP 11–22; TEMP 36.1–37.1; O2SAT 94–100; BMI 15.6
--- NOTE | 2018-09-02 00:34 | DI.CT.S_ITS ---
PROCEDURE: CT HEAD/BRAIN WO CON INDICATIONS: stroke symptoms TECHNIQUE: Noncontrast 4.5 mm thick angled axial sections acquired from the foramen magnum to the vertex, with coronal and sagittal reformats. For radiation dose reduction, the following was used: automated exposure control, adjustment of mA and/or kV according to patient size. COMPARISON: [facility], MR, BRAIN WITHOUT CONTRAST, 12/03/2015, 16:20. [facility], CT, HEAD WITHOUT CONTRAST, 12/01/2015, 11:21. [facility], CT, HEAD WITHOUT CONTRAST, 10/17/2016, 16:44. FINDINGS: Image quality: Excellent. CSF spaces: Basal cisterns are patent. No extra-axial fluid collections. The ventricles are symmetric in size and shape. Brain: No intracranial bleeds or masses. There is moderate cerebral volume loss for age, with resultant ventricular and sulcal prominence. There are severe periventricular and deep white matter chronic small vessel ischemic changes. There is intracranial internal carotid artery atherosclerosis. Skull and face: Calvarium and visualized facial bones appear intact, without suspicious lesions. Sinuses: Visualized sinuses and mastoids are clear. IMPRESSION: 1. No acute intracranial abnormalities. 2. Cerebral volume loss and chronic microvascular ischemic changes. No significant discrepancy with the assistant shift supervisor radiology preliminary report. Dictated by: Jassi Henao M.D. on 09/02/2018 at 7:38 Approved by: Jassi Henao M.D. on 09/02/2018 at 7:39
[2018-09-02] MEDS: SODIUM CHLORIDE 0.9% 1,000 ML 150 ML IV (01:00)
--- NOTE | 2018-09-02 01:39 | ED.WEAKNESS ---
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 His states that he has been acting different for the past 2 days with 7 days. His symptoms include confusion, trouble with speech, trouble finding words, difficulty ambulating and listing to the right. He has had no recent fever or chills and denies any injury. He has had no nausea, vomiting or diarrhea MD Complaint: focal weakness, lack of energy and difficulty walking Onset (ago): day(s) Duration: constant Location: RUE and RLE Severity: moderate Relieving factors: none Exacerbating factors: none Associated symptoms: confusion Related Data Home Medications Medication Instructions Recorded Confirmed omeprazole 20 mg PO QDAY #0 11/13/16 12/25/17 Disabled Parking Permit 1 ea MISCELLANEOUS DIRECTED 12/25/17 12/25/17 acetaminophen 650 mg PO Q6HP PRN 12/25/17 12/25/17 aspirin 1 tab PO DAILY 12/25/17 12/25/17 felodipine 1 tab PO DAILY 12/25/17 12/25/17 ferrous sulfate 1 tab PO DAILY 12/25/17 12/25/17 fluoxetine 10 mg PO DAILY 12/25/17 12/25/17 levetiracetam 500 mg PO BID 12/25/17 12/25/17 lisinopril 20 mg PO DAILY 12/25/17 12/25/17 loratadine 10 mg PO QDAY 12/25/17 12/25/17 mirtazapine 30 mg PO HS 12/25/17 12/25/17 phenytoin sodium extended 1 cap PO BID 12/25/17 12/25/17 Allergies Allergy/AdvReac Type Severity Reaction Status Date / Time vancomycin [VANCOMYCIN] Allergy Unknown VANCO Verified 12/26/17 08:35 ALLERGY ON SNF FACE SHEET Review of Systems Review of Systems ROS Unobtainable: Unobtainable due to mental status/LOC [facility] Medical History CVA, old, alterations of sensations (Acute) Hypertension (Acute) Iron deficiency anemia (Acute) Seizure disorder (Acute) Family History (Updated 12/25/17 @ 15:21 by Gila Miller MD) Father Cancer Social History household members: spouse and children Smoking Status: Never smoker alcohol intake: never Family History Father Cancer Social History household members: spouse and children Smoking Status: Never smoker alcohol intake: never Exam Narrative Exam Narrative: GENERAL: 73-year-old male appears older than stated age, chronically ill and acutely ill-appearing, confused HEAD: Temporal wasting Atraumatic. Normocephalic. No temporal or scalp tenderness. EYES: Pupils equal round and reactive. Extraocular motions intact. No scleral icterus. No injection or drainage. ENT: Dry mucous med Nose without bleeding, purulent drainage or septal hematoma. Throat without erythema, tonsillar hypertrophy or exudate. Uvula midline. Airway patent. NECK: Trachea midline. No JVD or lymphadenopathy. Supple, nontender, no meningeal signs. CARDIOVASCULAR: Regular rate and rhythm without murmurs, gallops, or rubs. RESPIRATORY: Clear to auscultation. Breath sounds equal bilaterally. No wheezes, rales, or rhonchi. GASTROINTESTINAL: Abdomen soft, non-tender, nondistended. No hepato-splenomegaly, or palpable masses. No guarding. EXTREMITIES: No clubbing, cyanosis, or edema. No joint tenderness, effusion, or edema noted. BACK: Nontender without deformity or crepitance. No flank tenderness. SKIN: No rash or erythema. Poor skin turgor Initial Vital Signs Initial Vital Signs: Vital Signs Temperature 97.0 F L 09/02/18 00:19 Pulse Rate 53 L 09/02/18 00:19 Respiratory Rate 22 09/02/18 00:19 Blood Pressure 160/95 H 09/02/18 00:19 Pulse Oximetry 99 09/02/18 00:19 Scores GCS Tanya coma scale eye opening: Spontaneous Tanya coma scale verbal response: Words Tanya coma scale motor response: Obey commands Tanya coma scale total score: 13 NIH Stroke Scale Level of Conciousness: Alert, keenly responsive Ask month/age: Answers one question correctly, intubated follow commands Open/close eyes, close hand: Performs both tasks correctly Best gaze horizontal: Normal Visual harris: No visual loss Facial palsy: Normal symetrical movement Left arm drift: No drift for full 10 sec Right arm drift: No drift for full 10 sec Left leg drift: No drift for full 10 sec Right leg drift: No drift for full 10 sec Limb ataxia: Absent Sensory on face/arms/legs: Normal, no sensory loss Best language: Mild to moderate, slurs some words Dysarthria: Mild to mod,some slurring Extinction or inattention: No abnormality Total NIH Stroke scale score: 3 Course Orders Ordered: ED Orders 09/02/18 00:34 CT head/brain wo con Stat Urine Drug Screen, Rapid Stat EKG-12 Lead Stat 09/02/18 03:08 Complete Blood Count AUTO DIFF Stat 09/02/18 03:15 Basic Metabolic Panel Stat Partial Thromboplastin Time Stat Prothrombin Time INR Stat Sodium Chloride (Normal Saline 0.9%) 1,000 mls @ 150 mls/hr IV CONT DOROTHEA Vital Signs - 8 hr 09/02/18 00:19 09/02/18 02:13 09/02/18 03:26 Temperature 97.0 F L Pulse Rate 53 L 51 L 56 L Respiratory Rate 22 11 L 14 Blood Pressure 160/95 H Blood Pressure [Left Arm] 192/85 H 162/87 H Pulse Oximetry 99 100 99 MDM - Weakness Lab Data Result diagrams: 09/02/18 03:08 09/02/18 03:15 Lab Results 09/02/18 09/02/18 09/02/18 Range/Units 03:08 03:15 03:15 WBC 6.5 (4.5-11.0) X10^3/uL RBC 4.14 L (4.5-5.9) X10^6/uL Hgb 12.8 L (13.5-17.5) g/dL Hct 38.0 L (41-53) % MCV 91.7 (80-100) fL MCH 31.0 (26-34) PG MCHC 33.8 (30-36) % RDW 14.5 (11.6-14.8) % Plt Count 141 L (150-400) X10^3/uL Neut % (Auto) 54.3 (50-75) % Lymph % (Auto) 35.7 (25-40) % Jasper % (Auto) 7.6 (3-14) % Eos % (Auto) 1.7 L (2-4) % Baso % (Auto) 0.7 (0-2) % Neut # (Auto) 3500 (9708-4248) /uL Lymph # (Auto) 2300 (2688-9749) /uL Jasper # (Auto) 500 (0-900) /uL Eos # (Auto) 100 (0-450) /uL Baso # (Auto) 0 (0-100) /uL PT 12.0 (10.1-12.7) SECONDS INR 1.0 (0.9-1.3) APTT 30 (26.4-36.2) SECONDS Sodium 145 (137-145) mmol/L Potassium 4.0 (3.4-5.1) mmol/L Chloride 109 H (98-107) mmol/L Carbon Dioxide 31 (22-32) mmol/L BUN 26 H (9-20) mg/dL Creatinine 0.80 (0.66-1.25) mg/dL Estimated GFR > 60.0 (>60) mL/min BUN/Creatinine Ratio 32.5 H (6-22) Glucose 85 (80-110) mg/dL Calcium 8.3 L (8.4-10.2) mg/dL MDM Narrative Medical decision making narrative: 73M with hx of CVA presents with an unclear story. He provides little to know assistance and is a bit unclear in her description herself. He is certainly outside of any window for stroke intervention. I have seen him before and his speech is certainly not at his baseline. Given dysarthria, aphasia and ataxia his diagnosis seems most likely CVA though other encephalopathy considered. Discharge Plan Departure Patient Disposition: Admitted As Inpatient Clinical Impression: Acute cerebrovascular accident
--- NOTE | 2018-09-02 01:45 | ED_ITS ---
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 His states that he has been acting different for the past 2 days with 7 days. His symptoms include confusion, trouble with speech, trouble finding words, difficulty ambulating and listing to the right. He has had no recent fever or chills and denies any injury. He has had no nausea, vomiting or diarrhea MD Complaint: focal weakness, lack of energy and difficulty walking Onset (ago): day(s) Duration: constant Location: RUE and RLE Severity: moderate Relieving factors: none Exacerbating factors: none Associated symptoms: confusion Related Data Home Medications Medication Instructions Recorded Confirmed omeprazole 20 mg PO QDAY #0 11/13/16 12/25/17 Disabled Parking Permit 1 ea MISCELLANEOUS DIRECTED 12/25/17 12/25/17 acetaminophen 650 mg PO Q6HP PRN 12/25/17 12/25/17 aspirin 1 tab PO DAILY 12/25/17 12/25/17 felodipine 1 tab PO DAILY 12/25/17 12/25/17 ferrous sulfate 1 tab PO DAILY 12/25/17 12/25/17 fluoxetine 10 mg PO DAILY 12/25/17 12/25/17 levetiracetam 500 mg PO BID 12/25/17 12/25/17 lisinopril 20 mg PO DAILY 12/25/17 12/25/17 loratadine 10 mg PO QDAY 12/25/17 12/25/17 mirtazapine 30 mg PO HS 12/25/17 12/25/17 phenytoin sodium extended 1 cap PO BID 12/25/17 12/25/17 Allergies Allergy/AdvReac Type Severity Reaction Status Date / Time vancomycin [VANCOMYCIN] Allergy Unknown VANCO Verified 12/26/17 08:35 ALLERGY ON SNF FACE SHEET Review of Systems Review of Systems ROS Unobtainable: Unobtainable due to mental status/LOC [facility] Medical History CVA, old, alterations of sensations (Acute) Hypertension (Acute) Iron deficiency anemia (Acute) Seizure disorder (Acute) Family History (Updated 12/25/17 @ 15:21 by Gila Miller MD) Father Cancer Social History household members: spouse and children Smoking Status: Never smoker alcohol intake: never Family History Father Cancer Social History household members: spouse and children Smoking Status: Never smoker alcohol intake: never Exam Narrative Exam Narrative: GENERAL: 73-year-old male appears older than stated age, chronically ill and acutely ill-appearing, confused HEAD: Temporal wasting Atraumatic. Normocephalic. No temporal or scalp tenderness. EYES: Pupils equal round and reactive. Extraocular motions intact. No scleral icterus. No injection or drainage. ENT: Dry mucous med Nose without bleeding, purulent drainage or septal hematoma. Throat without erythema, tonsillar hypertrophy or exudate. Uvula midline. Airway patent. NECK: Trachea midline. No JVD or lymphadenopathy. Supple, nontender, no meningeal signs. CARDIOVASCULAR: Regular rate and rhythm without murmurs, gallops, or rubs. RESPIRATORY: Clear to auscultation. Breath sounds equal bilaterally. No wheezes, rales, or rhonchi. GASTROINTESTINAL: Abdomen soft, non-tender, nondistended. No hepato- splenomegaly, or palpable masses. No guarding. EXTREMITIES: No clubbing, cyanosis, or edema. No joint tenderness, effusion, or edema noted. BACK: Nontender without deformity or crepitance. No flank tenderness. SKIN: No rash or erythema. Poor skin turgor Initial Vital Signs Initial Vital Signs: Vital Signs Temperature 97.0 F L 09/02/18 00:19 Pulse Rate 53 L 09/02/18 00:19 Respiratory Rate 22 09/02/18 00:19 Blood Pressure 160/95 H 09/02/18 00:19 Pulse Oximetry 99 09/02/18 00:19 Scores GCS Tanya coma scale eye opening: Spontaneous Tanya coma scale verbal response: Words Tanya coma scale motor response: Obey commands Tanya coma scale total score: 13 NIH Stroke Scale Level of Conciousness: Alert, keenly responsive Ask month/age: Answers one question correctly, intubated follow commands Open/close eyes, close hand: Performs both tasks correctly Best gaze horizontal: Normal Visual harris: No visual loss Facial palsy: Normal symetrical movement Left arm drift: No drift for full 10 sec Right arm drift: No drift for full 10 sec Left leg drift: No drift for full 10 sec Right leg drift: No drift for full 10 sec Limb ataxia: Absent Sensory on face/arms/legs: Normal, no sensory loss Best language: Mild to moderate, slurs some words Dysarthria: Mild to mod,some slurring Extinction or inattention: No abnormality Total NIH Stroke scale score: 3 Course Orders Ordered: ED Orders 09/02/18 00:34 CT head/brain wo con Stat Urine Drug Screen, Rapid Stat EKG-12 Lead Stat 09/02/18 03:08 Complete Blood Count AUTO DIFF Stat 09/02/18 03:15 Basic Metabolic Panel Stat Partial Thromboplastin Time Stat Prothrombin Time INR Stat Sodium Chloride (Normal Saline 0.9%) 1,000 mls @ 150 mls/hr IV CONT DOROTHEA Vital Signs - 8 hr 09/02/18 00:19 09/02/18 02:13 09/02/18 03:26 Temperature 97.0 F L Pulse Rate 53 L 51 L 56 L Respiratory Rate 22 11 L 14 Blood Pressure 160/95 H Blood Pressure [Left Arm] 192/85 H 162/87 H Pulse Oximetry 99 100 99 MDM - Weakness Lab Data Result diagrams: 09/02/18 03:08 09/02/18 03:15 Lab Results 09/02/18 09/02/18 09/02/18 Range/Units 03:08 03:15 03:15 WBC 6.5 (4.5-11.0) X10^3/uL RBC 4.14 L (4.5-5.9) X10^6/uL Hgb 12.8 L (13.5-17.5) g/dL Hct 38.0 L (41-53) % MCV 91.7 (80-100) fL MCH 31.0 (26-34) PG MCHC 33.8 (30-36) % RDW 14.5 (11.6-14.8) % Plt Count 141 L (150-400) X10^3/uL Neut % (Auto) 54.3 (50-75) % Lymph % (Auto) 35.7 (25-40) % Turner % (Auto) 7.6 (3-14) % Eos % (Auto) 1.7 L (2-4) % Baso % (Auto) 0.7 (0-2) % Neut # (Auto) 3500 (9187-6176) /uL Lymph # (Auto) 2300 (7595-8047) /uL Turner # (Auto) 500 (0-900) /uL Eos # (Auto) 100 (0-450) /uL Baso # (Auto) 0 (0-100) /uL PT 12.0 (10.1-12.7) SECONDS INR 1.0 (0.9-1.3) APTT 30 (26.4-36.2) SECONDS Sodium 145 (137-145) mmol/L Potassium 4.0 (3.4-5.1) mmol/L Chloride 109 H (98-107) mmol/L Carbon Dioxide 31 (22-32) mmol/L BUN 26 H (9-20) mg/dL Creatinine 0.80 (0.66-1.25) mg/dL Estimated GFR > 60.0 (>60) mL/min BUN/Creatinine Ratio 32.5 H (6-22) Glucose 85 (80-110) mg/dL Calcium 8.3 L (8.4-10.2) mg/dL MDM Narrative Medical decision making narrative: 73M with hx of CVA presents with an unclear story. He provides little to know assistance and is a bit unclear in her description herself. He is certainly outside of any window for stroke intervention. I have seen him before and his speech is certainly not at his baseline. Given dysarthria, aphasia and ataxia his diagnosis seems most likely CVA though other encephalopathy considered. Discharge Plan Departure Patient Disposition: Admitted As Inpatient Clinical Impression: Acute cerebrovascular accident
--- NOTE | 2018-09-02 03:20 | PC.NURSE ---
drawn by lab
[2018-09-02 03:31] LABS: Add Manual Diff / Slide Review NO; Basophils Absolute Auto 0 /uL (0-100); Basophils Percent Auto 0.7 % (0-2); Eosinophils Absolute Auto 100 /uL (0-450); Eosinophils Percent Auto 1.7 % (2-4); Hemoglobin 12.8 g/dL (13.5-17.5); Lymphocytes Absolute Auto 2300 /uL (1100-4500); Lymphocytes Percent Auto 35.7 % (25-40); Mean Corpuscular HGB Conc 33.8 % (30-36); Mean Corpuscular Volume 91.7 fL (80-100); Monocytes Absolute Auto 500 /uL (0-900); Monocytes Percent Auto 7.6 % (3-14); Neutrophils Absolute Auto 3500 /uL (1500-7000); Neutrophils Percent Auto 54.3 % (50-75); Platelet Count 141 X10^3/uL (150-400); Red Blood Cell Count 4.14 X10^6/uL (4.5-5.9); Red Cell Distribution Width 14.5 % (11.6-14.8); White Blood Cell Count 6.5 X10^3/uL (4.5-11.0)
[2018-09-02 03:34] LABS: PTT Partial Thromboplastin Tim 30 SECONDS (26.4-36.2)
[2018-09-02 03:35] LABS: BUN Creatinine Ratio 32.5 (6-22); Blood Urea Nitrogen 26 mg/dL (9-20); Calcium 8.3 mg/dL (8.4-10.2); Carbon Dioxide 31 mmol/L (22-32); Chloride 109 mmol/L (98-107); Estimated Glomerular Filt Rate > 60.0 mL/min (>60); Glucose 85 mg/dL (80-110); HEMOLYSIS 77 (0-50); Sodium 145 mmol/L (137-145)
--- NOTE | 2018-09-02 03:47 | PC.NURSE ---
reports not seeing pt for two days, when she returned he was not himself with generalized weakness and low energy. She reports he has not had much to eat or drink in the last two days.
--- NOTE | 2018-09-02 05:09 | DI.MRI.S_ITS ---
PROCEDURE: MR STROKE Pre- and post-contrast brain MRI, non-contrast brain MR angiogram, pre- and postcontrast neck MR angiogram INDICATIONS: Hx right hemisphere CVA, new confusion, aphagia, ataxia TECHNIQUE: Brain: Noncontrast axial T1 spin echo, axial T2 fast spin echo, sagittal and axial FLAIR, coronal T2 fast spin echo, axial gradient echo, axial diffusion and ADC through the brain. After the administration of contrast, axial 3D VIBE of the cranial vasculature and brain. Brain MRA: Non-contrast 3-D time of flight MR angiogram, with multiple vexuwwz-ylqeuauou-ipqepjzlds (MIP) reformats performed. Neck MRA: Axial and sagittal TruFISP through the neck. Coronal dynamic MR angiogram during administration of contrast in the arterial and venous phases, with 3-dimenstional vpcetzy-tbzypydno-qpmgttpjnc (MIP) reformats constructed from subtraction images. COMPARISON: None. FINDINGS: Image quality: Excellent. BRAIN: CSF spaces: Ventricles are normal in size and shape. Basal cisterns are patent. No extra-axial fluid collections. Brain: No intracranial bleeds or mass effects. Scattered small white matter signal changes, probably represent chronic microvascular ischemic disease, versus statistically less likely demyelination or other infectious, inflammatory, neurodegenerative etiology, technically nonspecific. Subcentimeter lacunar infarct involving the left parietal periventricular white matter on image 66 series 23. Brainstem appears normal. Normal intravascular flow voids are present. No abnormal intracranial enhancement. Skull and face: Calvarial marrow signal is normal. Orbits appear normal. Sinuses: Sinuses and mastoids are clear. BRAIN MR ANGIOGRAM: Anterior circulation: Intracranial internal carotid arteries are normal in size and enhancement. The flow within the paired anterior cerebral arteries is normal and symmetric. The flow within the middle cerebral arteries is normal and symmetric. The anterior communicating artery is seen. No stenoses, occlusions, or aneurysms. Posterior circulation: The visualized portions of the vertebral arteries demonstrate normal caliber, and join to form a normal appearing basilar artery. The flow within the posterior cerebral arteries is normal and symmetric. No stenoses, occlusions, or aneurysms. NECK MR ANGIOGRAM: Carotids: Great vessels demonstrate a bovine anatomy as they arise from the aortic arch. The origins of the common carotid arteries appear patent. The calibers and courses of both common carotid arteries are normal. The bifurcation regions appear normal bilaterally. The internal carotid arteries demonstrate normal course and caliber. Atherosclerotic irregularity of the external carotid arteries bilaterally. Posterior circulation: Origin of the right vertebral artery appears patent. The origin of left vertebral artery is not well-visualized. More superior portions of both vertebral arteries demonstrate normal course and caliber, and join to form a normal appearing basilar artery. Miscellaneous: Subclavian arteries appear patent. Pre-contrast images through the neck show no soft tissue abnormalities. IMPRESSION: BRAIN MRI: Acute subcentimeter lacunar infarct involving the left parietal periventricular white matter. Diffuse small white matter signal changes, probably represent chronic microvascular ischemic disease, versus statistically less likely demyelination or other infectious, inflammatory, neurodegenerative etiology, technically nonspecific. BRAIN MR ANGIOGRAM: No focal stenosis or occlusion. NECK MR ANGIOGRAM: No focal ICA stenosis. Dictated by: Fabricio Chahal M.D. on 09/02/2018 at 15:07 Approved by: Fabricio Chahal M.D. on 09/02/2018 at 15:20
[2018-09-02] MEDS: DEXTROSE 50 % IN WATER 25 GM/50 ML SYRINGE IV (05:25)
[2018-09-02 05:29] LABS: Urine Amphetamines Negative (Negative); Urine Barbiturates Negative (Negative); Urine Benzodiazepines Positive (Negative); Urine Cocaine Negative (Negative); Urine MDMA Negative (Negative); Urine Methadone Negative (Negative); Urine Methamphetamines Negative (Negative); Urine Morphine/Opi cutoff 2000 Negative (Negative); Urine Oxycodone Negative (Negative); Urine Phencyclidine Negative (Negative); Urine Tetrahydrocannabinol Negative (Negative); Urine Tricyclic Antidepressant Negative (Negative)
--- NOTE | 2018-09-02 05:30 | P.HP_ITS ---
History of Present Illness Date Patient Seen: 09/02/18 Time Patient Seen: 05:01 Chief complaint: constipated no appetite no energy x2 hours Narrative: Mr. Joseph Milan is a 73-year-old male with history significant for prior stroke with residual left hemiparesis, seizure disorder, hypertension, hyperlipidemia and iron deficiency anemia who presents to the ER with generalized weakness and altered mental status. The patient is altered and unable provide accurate information and the is poor historian. However information appears that the patient has had symptoms of left leg weakness altered speech difficulty word finding and right-sided weakness for between 2 and 7 days. The patient has residual left hemiparesis per the 's reported bedside from his prior CVA. He has never return to baseline function but is able to dress and bathe himself independently but is limited in his capacity for additional ADLs. At the time of the examination the patient denies fevers or c hills and has no headaches or dizziness. He reports his vision and hearing are normal. He denies chest pain or palpitations, shortness of breath cough or wheezing. He reports no complaints of abdominal pain and has no nausea or vomiting. He has had no diarrhea or constipation and denies urinary complications. Uses no assistive devices for ambulation. The informations verified with assistance of the patient's . Upon arrival in ER the patient is afebrile with temperature 97?. He is bra dycardic with heart rate of 53 and a blood pressure 160/95. His respirations are 11 with oxygen saturation 100% on room air. A CT scan without contrast obtained which finds no acute intercranial pathology but does note significant confluent nonspecific white matter densities. The EKG is reviewed by myself find a sinus bradycardia with a first-degree AV block with a as needed oval of 205 milliseconds and right bundle branch block. There is no ectopy or signs of ischemia however has had previous inferior infarct with Q-waves in leads 2 3 and AVF. On laboratory analysis his white count of 6.5 and hemoglobin of 12.8 and hematocrit of 38 with platelets of 141. His coags within normal limits and his tox screen is yet pending. His electrolytes within normal remits however has an elevated BUN creatinine ratio with a BUN of 26 and creatinine of 0.8. His blood sugar is 85. The patient is admitted to the hospital for acute CVA. Patient History Medical History History of small bowel obstruction (Acute) CVA, old, alterations of sensations (Acute) Hypertension (Acute) Iron deficiency anemia (Acute) Seizure disorder (Acute) Surgical History History of abdominal surgery (Acute) Family History Father Cancer Social History household members: spouse and children Smoking Status: Never smoker alcohol intake: never Family & Social History Family History Father Cancer Social History: household members spouse,children Tobacco & Substance use: Smoking Status Never smoker alcohol intake never Substance Use Type does not use Comment: The patient currently lives in a house with his to whom he has been for 46 years and their grandchildren. They'll status the family is unclear however there is a family history of cancer. Smoking: Patient is a past smoker smoking 1 pack per day for approximately 40 years quitting in 2013. Alcohol: Patient is a past drinker consuming 2 mixed drinks daily. Substance use: The patient denies recreation pharmaceuticals or herbal or cannabis products. Advanced directives: Discussion with the patient his is graded found the patient will be a FULL CODE. In the is be the patient's surrogate decision maker. Meds Home Medications Medication Instructions Recorded Confirmed Type omeprazole 20 mg PO QDAY #0 11/13/16 09/02/18 History Disabled Parking Permit 1 ea MISCELLANEOUS DIRECTED 12/25/17 09/02/18 History aspirin 1 tab PO DAILY 12/25/17 09/02/18 History felodipine 1 tab PO DAILY 12/25/17 09/02/18 History ferrous sulfate 1 tab PO DAILY 12/25/17 09/02/18 History fluoxetine 10 mg PO DAILY 12/25/17 09/02/18 History levetiracetam 500 mg PO BID 12/25/17 09/02/18 History lisinopril 20 mg PO DAILY 12/25/17 09/02/18 History loratadine 10 mg PO QDAY 12/25/17 09/02/18 History mirtazapine 30 mg PO HS 12/25/17 09/02/18 History phenytoin sodium extended 1 cap PO BID 12/25/17 09/02/18 History Allergies Allergy/AdvReac Type Severity Reaction Status Date / Time vancomycin [VANCOMYCIN] Allergy Unknown VANCO Verified 12/26/17 08:35 ALLERGY ON SNF FACE SHEET Review of Systems Review of Systems All systems reviewed & are unremarkable except as noted in HPI and below Exam Vital Signs (past 8 hours): - 09/02/18 00:19 09/02/18 02:13 09/02/18 03:26 Temperature 97.0 F L Pulse Rate 53 L 51 L 56 L Respiratory Rate 22 11 L 14 Blood Pressure 160/95 H Blood Pressure [Left Arm] 192/85 H 162/87 H Pulse Oximetry 99 100 99 09/02/18 04:50 09/02/18 05:25 Temperature Pulse Rate 59 L 58 L Respiratory Rate 14 14 Blood Pressure 196/88 H Blood Pressure [Left Arm] 190/88 H Pulse Oximetry 94 Oxygen Delivery Method Room Air Narrative Exam Narrative: GENERAL APPEARANCE: well developed, slender male, afebrile with altered mental status. HEAD: Symmetrical facies, atraumatic, no scalp lesions. EYES: No ptosis, bilateral arcus, pupils equal, round, reactive to light and accommodation, sclera non-icteric, extraocular movement intact with bilateral nystagmus. EARS: normal external structures, no ear pain NOSE: sinuses non tender to percussion, no rhinorrhea ORAL CAVITY: mucosa dry without lesions or exudate, palate normal, tongue in midline. THROAT: normal, no erythema, no exudate, pharynx normal, uvula midline. NECK/THYROID: neck supple, no jugular venous distention, no carotid bruit, no thyromegaly, trachea midline. LYMPH NODES: no cervical or supraclavicular lymphadenopathy. SKIN: warm and dry, no suspicious lesions, no rashes, good turgor. HEART: regular rate and rhythm, S1-S2 without murmur, no rubs or gallops, brisk capillary refill, no edema LUNGS: clear to auscultation bilaterally, no coarseness crackles or wheezing, no cough present CHEST: Symmetrical movement, no accessory muscle use, no pain to AP and lateral compression. ABDOMEN: Soft, no distention, no epigastric or abdominal tenderness on palpation, no guarding or peritoneal signs, no organomegaly, no flank or suprapubic tenderness, active bowel tones. BACK: Normal curvature, nontender to palpation, no CVA tenderness on percussion EXTREMITIES: Slow movement of all extremities, strength is 5/5 and symmetrical, well perfused. NEUROLOGIC: Patient is awake and alert but disoriented stating year as 1975 and month as July and provides incorrect history information per patient's , patient with difficulty word finding occasional slight slurred speech but no facial asymmetry able to puff cheeks symmetrically, impaired ability and accuracy of rapid alternating movements, motor strength normal upper and lower extremities, sensory exam intact to light touch, hearing grossly normal to speech. PSYCH: alert, impaired recall and memory, difficulty word finding, slow response Objective Labs Result Diagrams: 09/02/18 03:08 09/02/18 03:15 Labs: Laboratory Results - last 24 hr 09/02/18 09/02/18 09/02/18 03:08 03:15 03:15 WBC 6.5 RBC 4.14 L Hgb 12.8 L Hct 38.0 L MCV 91.7 MCH 31.0 MCHC 33.8 RDW 14.5 Plt Count 141 L Neut % (Auto) 54.3 Lymph % (Auto) 35.7 [place] % (Auto) 7.6 Eos % (Auto) 1.7 L Baso % (Auto) 0.7 Neut # (Auto) 3500 Lymph # (Auto) 2300 [place] # (Auto) 500 Eos # (Auto) 100 Baso # (Auto) 0 PT 12.0 INR 1.0 APTT 30 Sodium 145 Potassium 4.0 Chloride 109 H Carbon Dioxide 31 BUN 26 H Creatinine 0.80 Estimated GFR > 60.0 BUN/Creatinine Ratio 32.5 H Glucose 85 Calcium 8.3 L Assessment & Plan Assessment & Plan narrative: This is a 73-year-old male patient with reports of new neurological deficits including ataxia, aphasia and confusion and reports of right-sided weakness who presents to the ER with symptoms between 2 and 7 days. 1. Acute CVA, present on admission -patient with prior CVA with residual left hemiparesis. -patient with symptoms varying between 2 and 7 days but outside the window of treatment. -current symptoms include confusion, ataxia, aphasia, difficulty word finding and new right-sided weakness. -NIH score is 7. -continue aspirin 81 mg daily. -start clopidogrel 75 mg daily. -patient is NPO pending speech therapy evaluation. -PT and OT to evaluate and treat. 2. Chronic hypertension, active -blood pressure on arrival to the ER is 160/95 and upon arrival to the floor is 196/88. -patient is on home medications of amlodipine and lisinopril. -labetalol 100 mg p.o. as needed blood pressure greater than 180/100. 3. Chronic Hyperlipidemia, active -patient is not currently on an anti hyperlipidemic agent -atorvastatin 80 mg by mouth daily. 4. Chronic anemia, normochromic normocytic, active -patient previously diagnosed with iron deficiency anemia and has been on iron sulfate. -will obtain iron panel. 5. Chronic seizure disorder, presumed stable. -patient is on dual anti seizure medications including Keppra and Dilantin. -no seizure activity reported, seizure precautions in place. -will continue current home dose of Keppra 500 mg twice daily and Dilantin 100 mg twice daily. The patient is admitted to the hospital due to severity of his symptoms and risk for potential complications. He is admitted as an inpatient with expected length of stay to be greater than 2 midnights. Scores NIHSS Level of Conciousness: Not alert, but arousable by minor stim to obey, answer or respond Ask month/age: Answers neither question correctly, aphasic, stuporous, coma Open/close eyes, close hand: Performs both tasks correctly Best gaze horizontal: Normal Visual harris: No visual loss Facial palsy: Normal symetrical movement Left arm drift: Drifts down, not to bed Right arm drift: No drift for full 10 sec Left leg drift: No drift for full 10 sec Right leg drift: No drift for full 10 sec Limb ataxia: Present in two limbs Sensory on face/arms/legs: Normal, no sensory loss Best language: Mild to moderate, slurs some words Dysarthria: Normal Extinction or inattention: No abnormality Total NIH Stroke scale score: 7
[2018-09-02] MEDS: DEXTROSE 5%-0.9% NS 1,000 ML 100 ML IV ×3 (05:31→23:30)
--- NOTE | 2018-09-02 06:15 | PC.NURSE ---
0520- Pt admit for stroke symptoms, having confusion at this time. Oriented to self only, NIH score of 3 for dysarthria & dysphagia. BG of 53 when checked immediately upon arriving to our unit. Gave dextrose as ordered, see MAR for details. Assessment complete, seizure pads in place on bed, tele in place, cont SpO2 in place. Bed alarm on for safety measures. 0545- BG stable at 143, will recheck in an hour per protocol. D5 NS running as ordered. 0615- IV is occluding w/ cont infusion. Spoke w/ LATISHA Gomez, said to try and stick him x2 then will possibly order PICC line if we cannot get access. NPO for scheduled MR rodríguez. 0630- Attempted periph IV x2; unsuccessful & ED busy. LATISHA Gomez gave telephone order for PICC consult and placement. Will pass onto day RN that pt has no IV access. BG stable at 170.
[2018-09-02 06:50] LABS: HEMOLYSIS < 15 (0-50); Iron 82 ug/dL (49-181)
[2018-09-02 07:00] LABS: Percent Iron Saturation 41 % (20-50); Total Iron Binding Capacity 200 ug/dL (261-462); Transferrin 144 mg/dL (206-381)
--- NOTE | 2018-09-02 10:27 | CM.DANOTE ---
Addendum entered by Estela Varghese R.N. 09/02/18 15:42: Staci at [facility] is familiar with patient. Continuing to reach out and get in touch with . Staci will be seeing patient here at hospital. Original Note: DCP: Case received, EMR reviewed and met with patient. Introduced self and role. DCP template assessment completed with some information from patient, as well as information currently available. Have not been able to get in touch with spouse. Patient is a 73 year old male who admitted early this morning to the care of the hospitalist team. PCP: BIENVENIDO myers. Payer: Medicare/[employer] Patient came to hospital via family vehicle secondary to CVA symptoms. Patient was noted to have increased L.. hemiparesis, along with difficulty walking and trouble with word finding. He also has noted some increased confusion. Patient has history of HTN, CVA, and seizures as well. He is to be having MRI today. Patient did not remember where he was, he thought he was in [place]. Caregiver updated patient as to where he is. This pillowcase sewer attempted to call his home and talk to his , but mail box full. Met briefly with patient. Alert, pleasant demeanor. He was having some difficulty with certain words during conversation. He resides in [place] with his , Fariba, of over 46 years. He stated, he is pretty independent at home, but Payton, in occupational therapy stated he uses a walker at home, and does need some assistance. He lives with his grandchildren as well. Patient stated that his daughter lives at home as well, but unclear how much assistance he receives. Discussed nursing home with patient. He seemed ok with this idea. Left Medicare choice list in room, for when comes in can review. Discussed closed nursing rehab, [facility]. He stated, he would be ok with going there to get stronger before going home. Called Laury at [facility] admissions. She stated, he has been at [facility] before, approximately a year ago. She stated that she would review. At this time, patient is inpatient status as of today, for Metabolic Encephalopathy. Estela Varghese RN/Bore Miner Operator
--- NOTE | 2018-09-02 10:54 | OT.IP.EVAL ---
Current Diagnoses Cerebral infarction, unspecified (09/02/18) Past Medical History (Last Reviewed 09/02/18 @ 05:57 by LATISHA Hansen) History of small bowel obstruction (Acute) CVA, old, alterations of sensations (Acute) Hypertension (Acute) Iron deficiency anemia (Acute) Seizure disorder (Acute) Surgical History (Last Reviewed 09/02/18 @ 05:57 by LATISHA Hansen) History of abdominal surgery (Acute) Occupational Therapy Inpatient Evaluation/Re-Eval M1 PT/OT-IP Prior Functional Status Start: 09/02/18 10:29 Freq: NEEDED Status: Active Protocol: Document 09/02/18 10:30 [facility] (Rec: 09/02/18 10:54 [facility] [id number]) Medical Review Prior Functional Status Medical History Reviewed Yes Mobility and Gait Per pt was walking without a device at home, however due to pt's confusion may not be an accurate historian. Activities of Daily Living and IADL's Pt states able to do all ADL's , except that assist with socks and shoes at times . Prior Functional Level (Other details) Pt states did assist with cooking and IADl needs. Social History Household Members spouse children Living Arrangements House Number of Floors (Floors) Two Floors Number of Stairs To Enter/Railing? 2 steps and no rail and one flight up to the bedroom with bilateral rails. Home Environment Standard Height Toilet Walk in Shower Home Equipment Front Wheel Walker Four Wheel Walker Grab Bars In Shower M2 OT-IP Current Condition Start: 09/02/18 10:29 Freq: Status: Active Protocol: Document 09/02/18 10:30 [facility] (Rec: 09/02/18 10:54 [facility] [id number]) Occupational Therapy Current Condition Current Condition Evaluation Date 09/02/18 Treatment Diagnosis CVA Diagnosis Onset Date 09/02/18 Weight Bearing Status Weight Bearing Status Weight Bear as Tolerated M3 OT- IP Subjective and Pain Start: 09/02/18 10:29 Freq: Status: Active Protocol: Document 09/02/18 10:30 [facility] (Rec: 09/02/18 10:54 [facility] [id number]) OT- Subjective Occupational Therapy Visit Type Type Initial Evaluation Visit Start Time 09:00 Visit Stop Time 09:30 Total Visit Minutes 30 Occupational Therapy Visit Comments Patient Comments Pt confused and mainly just orientated to name and did not realize that he is at the hospital or how he even got to here. Pt did not remember being in the hospital last year. Pt also does not realize that he is soiled. Pt's cognition is not a baseline as prior hospital stay Ox4 and mainly at times needing extra time to respond to questions. OT Pain Assessment Pain When Pain Assessed At Rest Pain Present Pain Present Denied Pain M4 OT- IP ADL's Start: 09/02/18 10:29 Freq: Status: Active Protocol: Document 09/02/18 10:30 [facility] (Rec: 09/02/18 10:54 [facility] [id number]) OT ADL-Dressing General Eval Lower Body Dressing Ability Maximum Assistance Areas Needing Assistance Underpants/Brief Socks Shoes Comments OT Dressing Comments Assist to alexi shoes and brief . OT ADL-Toileting General Evaluation Toileting Ability Maximum Assistance Areas Needing Assistance Manage Clothing Perform Perineal Hygiene Comments OT Toileting Comments Pt needing assist to stand with CGA with FWW and another to assist for brief and hygiene needs. M5 OT- IP IADL's Start: 09/02/18 10:29 Freq: Status: Active Protocol: Document 09/02/18 10:30 [facility] (Rec: 09/02/18 10:54 [facility] [id number]) OT-Instrumental Activities of Daily Living Medication Management Medication Management Caregiver Administers Money Management Money Management Caregiver Provides Assistance Meal Preparation Meal Preparation Caregiver Provides Assist Hairspring Inspector Hairspring Inspector Comments Pt states assist with needs at home , to verify with pt's family. M6 OT- IP Functional Cognition Start: 09/02/18 10:29 Freq: Status: Active Protocol: Document 09/02/18 10:30 [facility] (Rec: 09/02/18 10:54 [facility] [id number]) Cognitive Factors Limiting Selfcare Function Cognitive Ability Level of Alertness Alert Confusional State Patient Orientation Name Attention Span Ability Capable of Focused Attention Unable to Sustain Attention Ability to Follow Commands Able to Follow One Step Commands with Increased Time Able to Follow One Step Commands with Repetition Memory Description Short Term Impaired Safety Awareness Decreased Recall of Precautions Underestimates Need for Assistance Problem Solving Ability Unable to Identify Errors Needs Assist to Identify Solutions Executive Function Ability Unable to Filter Distractions Unable to Make Plans Unable to Organize Plans Unable to Remember Details Cognitive Comments Cognitive Assessment Comments Pt confused and does not recall coming to the hospital or even why he is here. Increased time to process information, word finding difficulty at time, unable to come up with the word wrist. OT- Vision and Hearing OT- Vision Assessment Vision Assessment Comments Pt able to read the clock accurately. M7 OT- IP Mobility and Balance Start: 09/02/18 10:29 Freq: Status: Active Protocol: Document 09/02/18 10:30 [facility] (Rec: 09/02/18 10:54 [facility] [id number]) OT- Bed Mobility Assessment Rolling Type of Rolling Roll to Right Level of Assistance Standby Assistance Supine to Sit Supine to Sit Assist Standby Assistance Sit to Supine Sit to Supine Assist Minimal Assistance 1 Person Assistance Scooting Scooting to Edge of Bed Standby Assistance OT-Transfer Assessment Sit to and From Stand Sit to and from Stand Contact Guard Assistance Use of Upper Extremities Transfers Transfer Ability Minimal Assistance Moderate Assistance Technique Transfer Destination Bed Toilet Transfer Technique Stand Step Pivot Devices Transfer Assistive Devices Gait Belt Front Wheeled Walker Comments Mobility Comments Increased time for pt to process for bed mobility to go up and neding MORALES to help get legs back in. Pt able to come to stand from lower surface with MORALES and heavy use of grab bar. As pt trent needing more assist to walk with FWW. Pt tend to lean to the right with FWW and needing cues to stay in the FWW. Pt also needing cues to take bigger steps. OT- Gait Assessment Gait Gait Assistance Required: Minimum Assistance Moderate Assistance Able to Maintain Weight Bearing Status Yes During Gait Assistive Devices Assistive Device Gait Belt Front Wheeled Walker OT- Balance Assessment Sitting Balance and Reactions Static Sitting Balance Ability Good Dynamic Sitting Balance Ability Fair Standing Balance and Reactions Static Standing Balance Ability Fair M8 OT- IP Objective Assessments Start: 09/02/18 10:29 Freq: Status: Active Protocol: Document 09/02/18 10:30 [facility] (Rec: 09/02/18 10:54 [facility] [id number]) OT Gross Range of Motion Upper Extremity Range of Motion Assessment Within Functional Limits OT Strength Upper Extremity Strength Assessment Within Functional Limits Comments Strength Comments BUE 4/5 OT- Coordination Assessment Comments Coordination Comments Able to do finger to thumb opposition with increased time . OT-Muscle Tone Assessment Muscle Tone WNL Yes OT Sensation Assessment Comments Summary Comments Intact for light touch. M9 OT- IP Assessment and Plan Start: 09/02/18 10:29 Freq: Status: Active Protocol: Document 09/02/18 10:30 [facility] (Rec: 09/02/18 10:54 [facility] [id number]) OT Summary Assessment and Plan Potential Rehabilitation Potential Good Analytic Complexity at Evaluation Low Summary OT Impairments Strength Balance Coordination Functional Cognition Functional Mobility Grooming Dressing Toileting Bathing Toilet Transfers Shower Transfers Progress Towards Goals Slow Progress due to Medical Issues Slow Progress due to Activity Tolerance Slow Progress due to Cognition Assessment Summary Pt low complexity and main barriers are steps, decreased activity tolerance, balance, functional cognition and now needing asisst for all Adl and functional mobility needs. Pt will benefit from skilled rehab prior to going home pending medical progress and family's ability to care for pt. Currently, pt is far form baseline of MOD I for needs. Goals Grooming Goal Standby Assistance Dressing Goal Standby Assistance Toileting Goal Standby Assistance Bathing Goal Minimal Assistance Toilet Transfer Goal Standby Assistance Shower Transfer Goal Contact Guard Assistance Patient/Caregiver Education Goal Caregiver Independent Assisting Patient Days to Meet Goals 7 Frequency of Treatment Frequency Of Treatment Once a Day Treatment Plan OT Treatment Plan ADL Training Functional Cognition Training Functional Mobility Patient/Family Education Discharge Planning Other Treatment Recommendations and Next Stand at sink for grooming, Treatment Focus shower. Discharge Recommendations OT Discharge Recommendations SNF Rehab Home Equipment Needs Shower chair
--- NOTE | 2018-09-02 11:00 | PT.IIE ---
Current Diagnoses Cerebral infarction, unspecified (09/02/18) Surgical History (Last Reviewed 09/02/18 @ 05:57 by LATISHA Hansen) History of abdominal surgery (Acute) Medical History (Last Reviewed 09/02/18 @ 05:57 by LATISHA Hansen) History of small bowel obstruction (Acute) CVA, old, alterations of sensations (Acute) Hypertension (Acute) Iron deficiency anemia (Acute) Seizure disorder (Acute) Physical Therapy Inpatient Evaluation/Re-Eval M1 PT/OT-IP Prior Functional Status Start: 09/02/18 10:29 Freq: NEEDED Status: Active Protocol: Document 09/02/18 10:30 [facility] (Rec: 09/02/18 10:54 [facility] [id number]) Medical Review Prior Functional Status Medical History Reviewed Yes Mobility and Gait Per pt was walking without a device at home, however due to pt's confusion may not be an accurate historian. Activities of Daily Living and IADL's Pt states able to do all ADL's , except that assist with socks and sshoes at times . Prior Functional Level (Other details) Pt states did assist with cookign and IADl needs. Social History Household Members spouse children Living Arrangements House Number of Floors (Floors) Two Floors Number of Stairs To Enter/Railing? 2 steps and no rail and one flight up to the bedroom with bilateral rails. Home Environment Standard Height Toilet Walk in Shower Home Equipment Front Wheel Walker Four Wheel Walker Grab Bars In Shower M2 PT-IP Current Condition Start: 09/02/18 07:53 Freq: NEEDED Status: Active Protocol: Document 09/02/18 12:41 RS (Rec: 09/02/18 12:49 RS [id number]) Physical Therapy Current Condition Current Condition Evaluation Date 09/02/18 Treatment Diagnosis impaired mobility Onset Date 08/31/18 M3 PT-IP Subjective Start: 09/02/18 07:53 Freq: NEEDED Status: Active Protocol: Document 09/02/18 12:41 RS (Rec: 09/02/18 12:49 RS [email or web address]) Subjective Physical Therapy Visit Type Type Initial Evaluation Visit Start Time 10:10 Visit Stop Time 11:00 Total Visit Minutes 50 Physical Therapy Visit Comments Patient Comments Pt quite slow to answer questions, not initiating any conversation. Patient Goals unable to state therapy specific goal Therapy Pain Assessment Pain When Pain Assessed At Rest Pain Present Pain Present Denied Pain M4 PT-IP Mobility and Gait Start: 09/02/18 07:53 Freq: NEEDED Status: Active Protocol: Document 09/02/18 12:41 [facility] (Rec: 09/02/18 12:49 RS [id number]) PT-Bed Mobility Assessment Rolling Level of Assist Minimal Assistance Supine to Sit Supine to Sit Minimal Assistance Sit to Supine Sit to Supine Minimal Assistance Scooting Scooting to Edge of Bed Minimal Assistance PT-Transfer Assessment Sit to and From Stand Sit to and from Stand Minimal Assistance 1 Person Assistance Use of Upper Extremities Equipment Transfer Assistive Device Gait Belt Front Wheeled Walker Transfers Transfer Destination Bed Chair Transfer Technique Stand Step Pivot Transfer Ability Level of Assist Minimal Assistance 1 Person Assistance Use of Upper Extremities Comments Mobility Comments All of patient's motions are extremely slow, there is a definite lag response in addition to the actual motion being slow. Pt needing lots of cues and was unpredictable at times, not always responding to cues. Gait Assessment Comments Gait Comments not assessed as pt not consistently following commands Stair Climbing Assessment Comments Stair Climbing Comments not assessed PT-Balance Assessment Sitting Balance and Reactions Static Sitting Balance Ability Good Dynamic Sitting Balance Ability Fair Standing Balance and Reactions Static Standing Balance Ability Fair Dynamic Standing Balance Ability Poor M5 PT-IP Objective Assessments Start: 09/02/18 07:53 Freq: NEEDED Status: Active Protocol: Document 09/02/18 12:41 RS (Rec: 09/02/18 12:49 RS [id number]) Orientation Orientation/Cognition Level of Alertness Confusional State Orientation Name Comments defer to TEACHER PRIVATE/OT cog assessments Gross Range of Motion Upper Extremity ROM Assessment Within Functional Limits Lower Extremity ROM Assessment Within Functional Limits Strength Comments Strength Comments not formally assessed as pt had difficulty following specific commands for strength testing, pt presents with at least antigravity strength M6 PT-IP Treatment Start: 09/02/18 07:53 Freq: NEEDED Status: Active Protocol: Document 09/02/18 12:41 RS (Rec: 09/02/18 12:49 RS [id number]) Physical Therapy Treatment Education Education Provided Safety M7 PT-IP Assessment and Plan Start: 09/02/18 07:53 Freq: NEEDED Status: Active Protocol: Document 09/02/18 12:41 RS (Rec: 09/02/18 12:49 RS [id number]) PT Summary Assessment and Plan Potential Rehabilitation Potential Fair Status of Condition at Evaluation Evolving Summary Impairments Strength Balance Cognition Bed Mobility Transfers Gait Activity Tolerance Assessment Summary Pt presents with gross weakness and impaired cognition that are resulting in impaired mobility compared to baseline. Pt currently requires min A for all mobility and was no able to safely participate in walking today. This is below pt's reported functional baseline. Pt does have potential for functional improvement (the degree with likely depend on medical prognosis) and will benefit from ongoing acute and then subacute daily skilled therapies. Goals Bed Mobility Goal Standby Assistance Transfer Goal Contact Guard Assistance Front Wheeled Walker Gait Goal Contact Guard Assistance Front Wheel Walker Gait Distance 25 Days to Meet Goals 5 Frequency of Treatment Frequency Of Treatment Once a Day Treatment Plan Physical Therapy Treatment Plan Bed Mobility Training Transfer Training Gait Training Therapeutic Exercise Balance Retraining Post Op Education Discharge Planning Hot or Cold Pack Neuromuscular Re-ed Coordination Retraining Manual Therapy Other Recommendations and Next Treatment initiate gait as appropriate Focus Recommendations To Nursing Amount of Assist Needed 1 Person Assist Discharge Recommendations PT Discharge Recommendations SNF Rehab
[2018-09-02] MEDS: PHENYTOIN ER 100 MG CAPSULE PO ×2 (11:22→20:32)
[2018-09-02] MEDS: levETIRAcetam 250 MG TABLET 500 MG PO ×2 (11:22→20:32)
[2018-09-02] MEDS: ASPIRIN EC 81 MG TABLET PO (11:22)
[2018-09-02] MEDS: CLOPIDOGREL 75 MG TABLET PO (11:23)
--- NOTE | 2018-09-02 11:37 | ST.IPCSEOM ---
Care Team Visit Care Team Role Provider Type Family Provider Specialty: Address: Phone: Fax: Email: Benson Mccullough DO Emergency Provider Physician Specialty: Emergency Medicine Address: [address] [place] [address], [id number] Email: [email or web address] LATISHA Hansen Admit Provider Physician Attending Provider Specialty: Internal Medicine Address: [address] [place] [address], [id number] Email: Current Diagnoses Cerebral infarction, unspecified (09/02/18) Past Medical History (Last Reviewed 09/02/18 @ 05:57 by LATISHA Hansen) History of small bowel obstruction (Acute Medical) CVA, old, alterations of sensations (Acute Medical) Hypertension (Acute Medical) Iron deficiency anemia (Acute Medical) Seizure disorder (Acute Medical) Speech-Language Pathology Swallow Evaluation TEA LEAF READER Clinical Swallow Evaluation Start: 09/02/18 10:52 Freq: Status: Active Protocol: Document 09/02/18 10:52 [facility] (Rec: 09/02/18 11:36 [facility] [id number]) Clinical Swallow Evaluation Session Time Visit Start Time 10:15 Visit Stop Time 10:35 Total Visit Minutes 20 Setting Assessment Location Acute Care Visit Type Note Type Initial Evaluation Next Note Type Next Note Type Treatment Note Patient Information Identification Type Name ID Wristband History This pt is a 73-year-old male with history significant for prior stroke with residual left hemiparesis, seizure disorder, hypertension, hyperlipidemia and iron deficiency anemia who presents to the ER with generalized weakness and altered mental status. The patient is altered and unable provide accurate information and the is poor historian. However information appears that the patient has had symptoms of left leg weakness altered speech difficulty word finding and right-sided weakness for between 2 and 7 days. The patient has residual left hemiparesis per the 's reported bedside from his prior CVA. He has never return to baseline function but is able to dress and bathe himself independently but is limited in his capacity for additional ADLs. Medical History (Reviewed 06/18 @ 05:57 by LATISHA Hansen) History of small bowel obstruction (Acute) CVA, old, alterations of sensations (Acute) Hypertension (Acute) Iron deficiency anemia (Acute) Seizure disorder (Acute) Subjective Observations Pt was sleeping in his bed, easily awaken. He was agreeable to a swallowing assessment and was positioned upright in bed. Evaluation Liquids Trialed Ice Chips Thin Solids Trialed Puree Dysphagia Mechanical Mechanical Soft Regular Administration Type Tea Spoon Cup Single Sip Controlled Cup Sip Straw Self-Feeding Oral Impairment WFL Oral Strategies Upright at 90 degrees Oral Phase Comments OM examination demonstrated stuctures and function WFL. Pt demonstrated adequate ROM, mildly slowed diadochokinetic rate and adequate strength. Dentition adequate. Good bolus control and A-P transition. Pharyngeal Impairment WFL Pharyngeal Strategies Sitting Upright (90 deg) Pharyngeal Phase Comments Swallow response slow. Pt demonstrated adequate hyolaryngeal elevation/forward excursion. No wet voicing, no cough/choke observed. Pt eats very slowly. Findings Dysphagia Type Swallowing appears to be WFL. Cognition appears mild- moderately slow Rehabilitation Potential Good Impressions Joseph Gonzalez presented to the ER this a.m. with altered mental status and weakness. He has a history of previous CVA . P'ts overall cognition appears to be mild-moderately slowed with mild memory defecits. if pt's overall cognition flor s not improve, recommend a cognition assessment tomorrow. Pt's swallowing is WFL. His mastication time is slow. Recommend Mechanical Soft Diet with thin liquids. Aspiration precautions posted. Diet Recommendations Liquids Order Thin Diet Order Mechanical Soft Medication Recommendations As Tolerated Aspiration Precautions Recommended Precautions Upright at 90 Degrees Small Bites/Sips Treatment Plan Placement Recommendations after [facility] Facility Discharge Appropriate for Therapy Yes Therapy Recommendations Diet tolerance and pt education Dysphagia Goals Pt will be able to implement and follow safe swallow strategies. Pt will safely tolerate least restrictive diet without s/sx to meet nutrition/hydration needs. Cognitive assessment as indicated. TEA LEAF READER Follow Up x1 to educate pt on safe swallow
[2018-09-02] MEDS: FELODIPINE ER 5 MG TAB 10 MG PO (12:08)
--- NOTE | 2018-09-02 12:30 | OT.IP.EVAL ---
Current Diagnoses Cerebral infarction, unspecified (09/02/18) Past Medical History (Last Reviewed 09/02/18 @ 05:57 by LATISHA Hansen) History of small bowel obstruction (Acute) CVA, old, alterations of sensations (Acute) Hypertension (Acute) Iron deficiency anemia (Acute) Seizure disorder (Acute) Surgical History (Last Reviewed 09/02/18 @ 05:57 by LATISHA Hansen) History of abdominal surgery (Acute) Occupational Therapy Inpatient Evaluation/Re-Eval M1 PT/OT-IP Prior Functional Status Start: 09/02/18 10:29 Freq: NEEDED Status: Active Protocol: Document 09/02/18 10:30 [facility] (Rec: 09/02/18 10:54 [facility] [id number]) Medical Review Prior Functional Status Medical History Reviewed Yes Mobility and Gait Per pt was walking without a device at home, however due to pt's confusion may not be an accurate historian. Activities of Daily Living and IADL's Pt states able to do all ADL's , except that assist with socks and sshoes at times . Prior Functional Level (Other details) Pt states did assist with cookign and IADl needs. Social History Household Members spouse children Living Arrangements House Number of Floors (Floors) Two Floors Number of Stairs To Enter/Railing? 2 steps and no rail and one flight up to the bedroom with bilateral rails. Home Environment Standard Height Toilet Walk in Shower Home Equipment Front Wheel Walker Four Wheel Walker Grab Bars In Shower M2 OT-IP Current Condition Start: 09/02/18 10:29 Freq: Status: Active Protocol: Document 09/02/18 10:30 [facility] (Rec: 09/02/18 10:54 [facility] [id number]) Occupational Therapy Current Condition Current Condition Evaluation Date 09/02/18 Treatment Diagnosis Confusion, metabolic enceph Diagnosis Onset Date 09/02/18 Weight Bearing Status Weight Bearing Status Weight Bear as Tolerated M3 OT- IP Subjective and Pain Start: 09/02/18 10:29 Freq: Status: Active Protocol: Document 09/02/18 10:30 [facility] (Rec: 09/02/18 10:54 [facility] [id number]) OT- Subjective Occupational Therapy Visit Type Type Initial Evaluation Visit Start Time 09:00 Visit Stop Time 09:30 Total Visit Minutes 30 Occupational Therapy Visit Comments Patient Comments Pt confused and mainly just orienatated to name and did not realize that he is at the hospital or how he even got to here. Pt did not remember being in the hospital last year. Pt also does not realize that he is soiled. OT Pain Assessment Pain When Pain Assessed At Rest Pain Present Pain Present Denied Pain M4 OT- IP ADL's Start: 09/02/18 10:29 Freq: Status: Active Protocol: Document 09/02/18 10:30 [facility] (Rec: 09/02/18 10:54 [facility] [id number]) OT ADL-Dressing General Eval Lower Body Dressing Ability Maximum Assistance Areas Needing Assistance Underpants/Brief Socks Shoes Comments OT Dressing Comments Asssit to alexi shoes and brief . OT ADL-Toileting General Evaluation Toileting Ability Maximum Assistance Areas Needing Assistance Manage Clothing Perform Perineal Hygiene Comments OT Toileting Comments Pt needing assist to stand with CGA with FWW and another to assist for brief and hygiene needs. M5 OT- IP IADL's Start: 09/02/18 10:29 Freq: Status: Active Protocol: Document 09/02/18 10:30 [facility] (Rec: 09/02/18 10:54 [facility] [id number]) OT-Instrumental Activities of Daily Living Medication Management Medication Management Caregiver Administers Money Management Money Management Caregiver Provides Assistance Meal Preparation Meal Preparation Caregiver Provides Assist Principal Data Architect Principal Data Architect Comments Pt states assist with needs at home , to verify with pt's family. M6 OT- IP Functional Cognition Start: 09/02/18 10:29 Freq: Status: Active Protocol: Document 09/02/18 10:30 [facility] (Rec: 09/02/18 10:54 [facility] [id number]) Cognitive Factors Limiting Selfcare Function Cognitive Ability Level of Alertness Alert Confusional State Patient Orientation Name Attention Span Ability Capable of Focused Attention Unable to Sustain Attention Ability to Follow Commands Able to Follow One Step Commands with Increased Time Able to Follow One Step Commands with Repetition Memory Description Short Term Impaired Safety Awareness Decreased Recall of Precautions Underestimates Need for Assistance Problem Solving Ability Unable to Identify Errors Needs Assist to Identify Solutions Executive Function Ability Unable to Filter Distractions Unable to Make Plans Unable to Organize Plans Unable to Remember Details Cognitive Comments Cognitive Assessment Comments Pt confused and does not recall coming to the hospital or even why he is here. Increased time to process information, word finding difficulty at time, unable to come up with the word wrist. OT- Vision and Hearing OT- Vision Assessment Vision Assessment Comments Pt able to read the clock accurately. M7 OT- IP Mobility and Balance Start: 09/02/18 10:29 Freq: Status: Active Protocol: Document 09/02/18 10:30 [facility] (Rec: 09/02/18 10:54 [facility] [id number]) OT- Bed Mobility Assessment Rolling Type of Rolling Roll to Right Level of Assistance Standby Assistance Supine to Sit Supine to Sit Assist Standby Assistance Sit to Supine Sit to Supine Assist Minimal Assistance 1 Person Assistance Scooting Scooting to Edge of Bed Standby Assistance OT-Transfer Assessment Sit to and From Stand Sit to and from Stand Contact Guard Assistance Use of Upper Extremities Transfers Transfer Ability Minimal Assistance Moderate Assistance Technique Transfer Destination Bed Toilet Transfer Technique Stand Step Pivot Devices Transfer Assistive Devices Gait Belt Front Wheeled Walker Comments Mobility Comments Increased time for pt to process for bed mobility to go up and neding MORALES to help get legs back in. Pt able to come to stand from lower surface with MORALES and heavy use of grab bar. As pt trent needing more assist to walk with FWW. Pt tend to lean to the right with FWW and needing cues to stay in the FWW. Pt also needing cues to take bigger steps. OT- Gait Assessment Gait Gait Assistance Required: Minimum Assistance Moderate Assistance Able to Maintain Weight Bearing Status Yes During Gait Assistive Devices Assistive Device Gait Belt Front Wheeled Walker OT- Balance Assessment Sitting Balance and Reactions Static Sitting Balance Ability Good Dynamic Sitting Balance Ability Fair Standing Balance and Reactions Static Standing Balance Ability Fair M8 OT- IP Objective Assessments Start: 09/02/18 10:29 Freq: Status: Active Protocol: Document 09/02/18 10:30 [facility] (Rec: 09/02/18 10:54 [facility] [id number]) OT Gross Range of Motion Upper Extremity Range of Motion Assessment Within Functional Limits OT Strength Upper Extremity Strength Assessment Within Functional Limits Comments Strength Comments BUE 4/5 OT- Coordination Assessment Comments Coordination Comments Able to do finger to thumb opposition with increased time . OT-Muscle Tone Assessment Muscle Tone WNL Yes OT Sensation Assessment Comments Summary Comments Intact for light touch. M9 OT- IP Assessment and Plan Start: 09/02/18 10:29 Freq: Status: Active Protocol: Document 09/02/18 10:30 [facility] (Rec: 09/02/18 10:54 [facility] [id number]) OT Summary Assessment and Plan Potential Rehabilitation Potential Good Analytic Complexity at Evaluation Low Summary OT Impairments Strength Balance Coordination Functional Cognition Functional Mobility Grooming Dressing Toileting Bathing Toilet Transfers Shower Transfers Progress Towards Goals Slow Progress due to Medical Issues Slow Progress due to Activity Tolerance Slow Progress due to Cognition Assessment Summary Pt low complexity and main barriers are steps, decreased activity tolerance, balance, functional cognition and now needing asisst for all Adl and functional mobility needs. Ptwill benefit from skilled rehab prior to going home pending medical progress and family's ability to care for pt. Currently, pt is far form baseline of MOD I for needs. Goals Grooming Goal Standby Assistance Dressing Goal Standby Assistance Toileting Goal Standby Assistance Bathing Goal Minimal Assistance Toilet Transfer Goal Standby Assistance Shower Transfer Goal Contact Guard Assistance Patient/Caregiver Education Goal Caregiver Independent Assisting Patient Days to Meet Goals 7 Frequency of Treatment Frequency Of Treatment Once a Day Treatment Plan OT Treatment Plan ADL Training Functional Cognition Training Functional Mobility Patient/Family Education Discharge Planning Other Treatment Recommendations and Next Stand at sink for grooming, Treatment Focus shower. Discharge Recommendations OT Discharge Recommendations SNF Rehab Home Equipment Needs Shower chair
[2018-09-02 15:02] LABS: Hemoglobin A1C% w Est Avg Glu 5.1 % (4.0-6.0)
--- NOTE | 2018-09-02 16:09 | PC.NURSE ---
Addendum entered by Joselyn Ansari R.N. 09/02/18 21:45: Patient has been calm & cooperative since last note. Speech mostly clear, sometimes slurred, he is oriented to hospital tonight. Still refusing me to do straight cath for UA, cannot obtain via urinal as he is incontinent of urine tonight. Took pills one at-a-time with applesauce, denies difficulty swallowing. Addendum entered by Joselyn Ansari R.N. 09/02/18 18:47: Patient increasingly restless, starting to pull off surveillance system monitor, adamant that he is going home now. Brief wet, brief changed & eugene-care given. He calmed down slightly but still said he was going home. I talked with him about reason for hospitalization & told him the Dr has not discharged him home yet, he said 'shhh' and put index finger in front of lips. I asked him if he would like to call his for reassurance, which I helped him do. He is now laying in bed quietly watching TV, bed alarm active & fall precautions in place. Original Note: Evening note: Joseph back from MRI at 1500. He is awake, looking at staff with eyes wide open, pupils dilated, reactive to light. He is oriented to place & situation, forgetful to date. His hand sack department supervisor are mostly equal but he clearly states my left hand is weaker than my right. LLE with drift, cannot lift leg off bed for more than a second or 2. NIH= 5. He denies any pain. Hypertensive. IVF infusing per orders. I talked with him about Dr Medina's order for straight cath in order to send UA to lab, he refused catheter. I explained procedure/rationale 2nd time, he refused a 2nd time. After meal he agrees to try to void via urinal. Brief is dry at this time. Apple juice given per his request, no observed problems with swallow, no cough, able to feed self. Fall precautions are in place, bed alarm is active, instructed to use call button if he has needs/concerns. He agrees to this plan. Nurse from [facility] in room to talk with him about possible rehab after hospitalizaion.
--- NOTE | 2018-09-02 19:37 | PM.PN.1 ---
Subjective Date Patient Seen: 09/02/18 Exam Vital Signs (past 8 hours): - 09/02/18 12:48 09/02/18 15:53 09/02/18 15:56 Temperature 98.7 F 97.8 F Pulse Rate 55 L 63 Respiratory Rate 16 12 Blood Pressure 173/88 H 187/78 H Pulse Oximetry 100 98 98 09/02/18 19:36 Temperature 98.6 F Pulse Rate 55 L Respiratory Rate 14 Blood Pressure 186/96 H Pulse Oximetry 99 Oxygen Delivery Method Room Air Oxygen Flow Rate 0 Objective Labs Result Diagrams: 09/02/18 03:08 09/02/18 03:15 Labs: Laboratory Results - last 24 hr 09/02/18 09/02/18 09/02/18 03:08 03:08 03:08 WBC 6.5 RBC 4.14 L Hgb 12.8 L Hct 38.0 L MCV 91.7 MCH 31.0 MCHC 33.8 RDW 14.5 Plt Count 141 L Neut % (Auto) 54.3 Lymph % (Auto) 35.7 [place] % (Auto) 7.6 Eos % (Auto) 1.7 L Baso % (Auto) 0.7 Neut # (Auto) 3500 Lymph # (Auto) 2300 [place] # (Auto) 500 Eos # (Auto) 100 Baso # (Auto) 0 PT INR APTT Sodium Potassium Chloride Carbon Dioxide BUN Creatinine Estimated GFR BUN/Creatinine Ratio Glucose Hemoglobin A1c 5.1 Calcium Iron 82 TIBC 200 L % Saturation 41 Transferrin 144 L Urine Opiates Screen Ur Oxycodone Screen Urine Methadone Screen Ur Barbiturates Screen U Tricyclic Antidepress Ur Phencyclidine Scrn Ur Amphetamines Screen U Methamphetamines Scrn Ur MDMA Scrn (Ecstasy) U Benzodiazepines Scrn Urine Cocaine Screen U Marijuana (THC) Screen 09/02/18 09/02/18 09/02/18 03:15 03:15 05:20 WBC RBC Hgb Hct MCV MCH MCHC RDW Plt Count Neut % (Auto) Lymph % (Auto) [place] % (Auto) Eos % (Auto) Baso % (Auto) Neut # (Auto) Lymph # (Auto) [place] # (Auto) Eos # (Auto) Baso # (Auto) PT 12.0 INR 1.0 APTT 30 Sodium 145 Potassium 4.0 Chloride 109 H Carbon Dioxide 31 BUN 26 H Creatinine 0.80 Estimated GFR > 60.0 BUN/Creatinine Ratio 32.5 H Glucose 85 Hemoglobin A1c Calcium 8.3 L Iron TIBC % Saturation Transferrin Urine Opiates Screen Negative Ur Oxycodone Screen Negative Urine Methadone Screen Negative Ur Barbiturates Screen Negative U Tricyclic Antidepress Negative Ur Phencyclidine Scrn Negative Ur Amphetamines Screen Negative U Methamphetamines Scrn Negative Ur MDMA Scrn (Ecstasy) Negative U Benzodiazepines Scrn Positive H Urine Cocaine Screen Negative U Marijuana (THC) Screen Negative Assessment & Plan Assessment & Plan narrative: Brief progress note: Patient seen and examined. Patient hemodynamically stable. Physical exam unchanged. Agree with admitting providers assessment and plan. MR stroke protocol pending. Continue aspirin, Plavix and statin. Plan to discuss goals of care with patient's when present. Quality VTE Deep Vein Thrombosis/Pulmonary Embolism Present on Admission: No
[2018-09-02] MEDS: MIRTAZAPINE 15 MG TABLET 30 MG PO (20:31)
[2018-09-02] MEDS: ATORVASTATIN 20 MG TABLET 80 MG PO (20:31)
--- NOTE | 2018-09-02 23:54 | PC.NURSE ---
2300- Pt admit for CVA symptoms; MR stroke completed today see MD notes for details. NIH score of 5 thru the day, scored 7 for this RN. Expressive aphagia/confusion seem worse than last night. Pt thinks he is at home w/ his ; attempted to reorient. BA on for safety; tele in place reading SB. Pt O2 & VSS on RA; dysphagia diet in place. D5 NS running into L upper Midline. Qshift BG checks taking place; pt still needs UA collected, has refused straight cath at this time. 0045- IV pump beeping in room, when RN entered she noticed Midline & Catheter sitting on top of blankets. Pt had pulled midline out w/ catheter in place. CARROT HARVESTER Jason aware, RN attempted IV insertion however pt remained agitated and wouldn't allow RN to attempt. 0130- One time IM injection of Haldol given to calm pt and attempt IV insertion based on CARROT HARVESTER orders. Haldol given, will wait for it to take effect, then attempt IV insert. 0230- 4 additional attempts to insert IV w/ no success. Pt remains extremely agitated & attempting to hurt staff. No IV access remains, fluids off at this time. CARROT HARVESTER gave verbal orders to wait until dayshift. 0430- Pt awake and more alert at this time. DESIZING MACHINE OPERATOR has to remain in room as pt attempts to crawl out of bed.
[2018-09-03] VITALS (9 sets, daily range): BP systolic 156–201; BP diastolic 75–104; PULSE 51–74; RESP 15–22; TEMP 36.5–37.5; O2SAT 95–100; BMI 16.4
[2018-09-03] MEDS: HALOPERIDOL 5 MG/ML VIAL 1 MG IM (01:33)
--- NOTE | 2018-09-03 04:13 | PM.EVENT ---
Date Patient Seen: 09/03/18 Time Patient Seen: 00:30
[2018-09-03 08:15] LABS: Bacteria Urine None Seen; RBC Urine None Seen (0-5/HPF); WBC Urine None Seen (0-5/HPF)
[2018-09-03 08:25] LABS: Appearance Urine UA CLEAR; Bilirubin Urine UA NEGATIVE (NEGATIVE); Color Urine UA YELLOW; Glucose Urine UA NEGATIVE (Negative); Ketones Urine UA NEGATIVE (NEGATIVE); Leukocyte Esterase Urine UA NEGATIVE (NEGATIVE); Nitrite Urine UA NEGATIVE (Negative); Occult Blood Urine UA NEGATIVE (Negative); Protein Urine UA NEGATIVE (Negative); Urobilinogen Urine UA 0.2 E.U./dL (0.2); pH Urine UA 7.5 (4.5-8.0)
[2018-09-03 08:48] LABS: Culture Indicated Urine Cult Not Indicated; Urine Comments Microscopic Normal
--- NOTE | 2018-09-03 09:30 | PT.IPTN ---
Current Diagnoses Cerebral infarction, unspecified (09/02/18) Physical Therapy Treatment Note M2 PT-IP Current Condition Start: 09/02/18 07:53 Freq: NEEDED Status: Active Protocol: Document 09/02/18 12:41 RS (Rec: 09/02/18 12:49 RS [id number]) Physical Therapy Current Condition Current Condition Evaluation Date 09/02/18 Treatment Diagnosis impaired mobility Onset Date 08/31/18 M3 PT-IP Subjective Start: 09/02/18 07:53 Freq: NEEDED Status: Active Protocol: Document 09/03/18 09:05 [facility] (Rec: 09/03/18 10:34 [facility] [id number]) Subjective Physical Therapy Visit Type Type Treatment Note Visit Start Time 09:05 Visit Stop Time 09:28 Total Visit Minutes 23 Notes Co-treated with OT Number of PUBLISHING SPECIALIST Visits 1 Physical Therapy Visit Comments Patient Comments Pt unwilling to shower but wanted to ambulate with shoes on. M4 PT-IP Mobility and Gait Start: 09/02/18 07:53 Freq: NEEDED Status: Active Protocol: Document 09/03/18 09:05 [facility] (Rec: 09/03/18 10:34 [facility] [id number]) PT-Transfer Assessment Sit to and From Stand Sit to and from Stand Minimal Assistance 2 Person Assistance Use of Upper Extremities Equipment Transfer Assistive Device Gait Belt Front Wheeled Walker Transfers Transfer Destination Chair Transfer Ability Level of Assist Minimal Assistance 2 Person Assistance Use of Upper Extremities Comments Mobility Comments Pt continues to move slowly needing extra time to process . Pt requires Max verbal and tactile cues for hand placement during seated transfers. Pt with decreased response to cues as treatment proceeded. Gait Assessment Gait Gait Assistance Required: Moderate Assistance 2 Person Assist Distance (Feet) 10 Able to Maintain Weight Bearing Status Yes During Gait Assistive Devices Assistive Device Front Wheeled Walker Orthotic/Prosthetic Devices or Brace: No Gait Deviations General Gait Pattern Decreased Stride Length Decreased Feet Clearance Flexed Trunk Lateral Trunk Lean Narrow Based Gait Step-to Gait Factors Limiting Gait Function Factors Limiting Gait Function Decreased Activity Tolerance Decreased Strength Poor Balance Poor Safety Awareness Comments Gait Comments Pt able to ambulate slowly with cues for foot placement and assist with walker management. Pt has right lateral lean and as he fatigues has forward posture and difficulty straightening legs and advancing right leg. Pt ambulated ~10ft in room with Mod A x2 with chair follow. Stair Climbing Assessment Comments Stair Climbing Comments not assessed PT-Balance Assessment Sitting Balance and Reactions Static Sitting Balance Ability Good Dynamic Sitting Balance Ability Fair Standing Balance and Reactions Static Standing Balance Ability Fair Dynamic Standing Balance Ability Poor M5 PT-IP Objective Assessments Start: 09/02/18 07:53 Freq: NEEDED Status: Active Protocol: Document 09/02/18 12:41 RS (Rec: 09/02/18 12:49 RS [id number]) Orientation Orientation/Cognition Level of Alertness Confusional State Orientation Name Comments defer to MANAGER RESTAURANT/OT cog assessments Gross Range of Motion Upper Extremity ROM Assessment Within Functional Limits Lower Extremity ROM Assessment Within Functional Limits Strength Comments Strength Comments not formally assessed as pt had difficulty following specific commands for strength testing, pt presents with at least antigravity strength M6 PT-IP Treatment Start: 09/02/18 07:53 Freq: NEEDED Status: Active Protocol: Document 09/02/18 12:41 RS (Rec: 09/02/18 12:49 RS [id number]) Physical Therapy Treatment Education Education Provided Safety M7 PT-IP Assessment and Plan Start: 09/02/18 07:53 Freq: NEEDED Status: Active Protocol: Document 09/03/18 09:05 [facility] (Rec: 09/03/18 10:34 [facility] [id number]) PT Summary Assessment and Plan Summary Impairments Strength Balance Cognition Bed Mobility Transfers Gait Activity Tolerance Assessment Summary Pt requiring Max verbal and tactile cues with all transfers and ambulation. Pt required Mod A x2 for gait and chair follow. Pt fatigues quickly although he wanted to continue to ambulate was unable to safely ambulate any farther. Goals Bed Mobility Goal Standby Assistance Transfer Goal Contact Guard Assistance Front Wheeled Walker Gait Goal Contact Guard Assistance Front Wheel Walker Gait Distance 25 Days to Meet Goals 5 Frequency of Treatment Frequency Of Treatment Once a Day Treatment Plan Physical Therapy Treatment Plan Bed Mobility Training Transfer Training Gait Training Therapeutic Exercise Balance Retraining Post Op Education Discharge Planning Hot or Cold Pack Neuromuscular Re-ed Coordination Retraining Manual Therapy Other Recommendations and Next Treatment gait with 2 person and chair Focus follow Recommendations To Nursing Amount of Assist Needed 2 Person Assist Discharge Recommendations PT Discharge Recommendations SNF Rehab
[2018-09-03] MEDS: FELODIPINE ER 5 MG TAB 10 MG PO (09:45)
[2018-09-03] MEDS: CLOPIDOGREL 75 MG TABLET PO (09:45)
[2018-09-03] MEDS: ASPIRIN EC 81 MG TABLET PO (09:45)
[2018-09-03] MEDS: levETIRAcetam 250 MG TABLET 500 MG PO ×2 (09:45→22:10)
[2018-09-03] MEDS: QUETIAPINE 25 MG TABLET 12.5 MG PO ×2 (09:45→22:11)
[2018-09-03] MEDS: PHENYTOIN ER 100 MG CAPSULE PO ×2 (09:45→22:10)
--- NOTE | 2018-09-03 10:04 | CM.DPC ---
Addendum entered by Estela Varghese R.N. 09/03/18 11:31: Patient pleasant and cooperative today. Worked with occupational and physical therapy. Was able to get in touch with , Fariba. She stated to use cell phone as contact, not home number. Her contact is: [phone]. Discussed plan of alf with . She is in agreement that he will need alf, and has been at [facility] before. Discussed patient's baseline health at home. She stated that he has been getting around with his walker, and independent. She mentioned that she had noticed a decline the past several days of patient dragging his leg when walking, and decreased appetite. She also stated that their son, Gee, lives with them and helps out as well. She will be coming by today to see patient after 3:00 today. Original Note: DCP Cont: Patient was started on Seroquel secondary to agitation. Patient alert and oriented today, but does have a caregiver one on one at this time. Attempted to reach spouse again today, and voice mail box full. Patient sitting in his recliner at this time. [facility] is still the plan, but per discussion with Dr. Miller at team rounds, medications will need to be adjusted. Had Dr. Miller sign hospital exempt for PASSR. P: DCP to continue to follow closely. Staci at [facility] will need to come over and re-evaluate patient before discharge. Will need to continue to reach out to spouse. Asked nurse Mccormack to let this adult protective caseworker know if spouse comes to see patient. Estela Varghese RN/[facility]
--- NOTE | 2018-09-03 10:34 | OT.IP.TRT ---
Current Diagnoses Cerebral infarction, unspecified (09/02/18) Occupational Therapy Treatment Note M2 OT-IP Current Condition Start: 09/02/18 10:29 Freq: Status: Active Protocol: Document 09/02/18 10:30 [facility] (Rec: 09/02/18 10:54 [facility] [id number]) Occupational Therapy Current Condition Current Condition Evaluation Date 09/02/18 Treatment Diagnosis CVA Diagnosis Onset Date 09/02/18 Weight Bearing Status Weight Bearing Status Weight Bear as Tolerated M3 OT- IP Subjective and Pain Start: 09/02/18 10:29 Freq: Status: Active Protocol: Document 09/03/18 10:21 [facility] (Rec: 09/03/18 10:34 [facility] [id number]) OT- Subjective Occupational Therapy Visit Type Type Treatment Note Visit Start Time 08:55 Visit Stop Time 09:35 Total Visit Minutes 40 Occupational Therapy Visit Comments Patient Comments Pt agreeable to get up. OT Pain Assessment Pain When Pain Assessed At Rest Pain Present Pain Present Denied Pain M4 OT- IP ADL's Start: 09/02/18 10:29 Freq: Status: Active Protocol: Document 09/03/18 10:21 [facility] (Rec: 09/03/18 10:34 [facility] [id number]) OT [id number] General Evaluation Self-Feeding Ability Moderate Assistance Areas Needing Assistance Cutting Food Drinking From Cup/Glass Loading Utensil Opening Containers Comments OT Self-Feeding Comments Pt needing more assist especially when tired, having trouble to raise right arm/ hand all the way to his mouth, getting the cup to his mouth, and easily distracted. OT ADL-Grooming Comments OT Grooming Comments Per aid pt just needing set-up assist and able to do all grooming needs. OT ADL-Dressing General Eval Lower Body Dressing Ability Maximum Assistance Areas Needing Assistance Socks Shoes OT ADL-Bathing Comments OT Bathing Comments Attempted to try to get pt in the shower, initially agreed and then did not want to shower and just focused on walking. M5 OT- IP IADL's Start: 09/02/18 10:29 Freq: Status: Active Protocol: Document 09/02/18 10:30 [facility] (Rec: 09/02/18 10:54 [facility] [id number]) OT-Instrumental Activities of Daily Living Medication Management Medication Management Caregiver Administers Money Management Money Management Caregiver Provides Assistance Meal Preparation Meal Preparation Caregiver Provides Assist Undercover Agent Undercover Agent Comments Pt states assist with needs at home , to verify with pt's family. M6 OT- IP Functional Cognition Start: 09/02/18 10:29 Freq: Status: Active Protocol: Document 09/03/18 10:21 [facility] (Rec: 09/03/18 10:34 [facility] [id number]) Cognitive Factors Limiting Selfcare Function Cognitive Ability Level of Alertness Alert Confusional State Patient Orientation Name Attention Span Ability Unable to Focus Unable to Sustain Attention Ability to Follow Commands Able to Follow One Step Commands with Increased Time Able to Follow One Step Commands with Repetition Memory Description Short Term Impaired Working Impaired Safety Awareness Decreased Recall of Precautions Underestimates Need for Assistance Problem Solving Ability Unable to Identify Errors Needs Assist to Identify Solutions Executive Function Ability Unable to Filter Distractions Unable to Make Plans Unable to Organize Plans Unable to Remember Details Cognitive Comments Cognitive Assessment Comments Pt more difficulty to follow commands, increased time to process and respond. Initially pt able to joke around however at the end of the session with [employer], pt not responding or wanting to talk. Pt today needing MAX vc for safety, functional mobility, and sequence of tasks for sit to stand and use of FWW. OT- Vision and Hearing OT- Vision Assessment Vision Assessment Comments Pt undershooting to get cup to mouth and spoon, however may also be influenced with decreased BUE strength and coordination. M7 OT- IP Mobility and Balance Start: 09/02/18 10:29 Freq: Status: Active Protocol: Document 09/03/18 10:21 [facility] (Rec: 09/03/18 10:34 [facility] [id number]) OT-Transfer Assessment Sit to and From Stand Sit to and from Stand Minimal Assistance 1 Person Assistance Transfers Transfer Ability Moderate Assistance 2 Person Assistance Technique Transfer Destination Bed Chair Transfer Technique Stand Step Pivot Devices Transfer Assistive Devices Gait Belt Front Wheeled Walker Comments Mobility Comments Pt leaning more today with his trunk to the right and needing more physical assist to keep upright and also need from another person when walking with FWW. Pt also needing assist with weight shifting, and at time to help physically move his right foot . Pt needing MAX vc for all cues for mobility needs. OT- Gait Assessment Gait Gait Assistance Required: Moderate Assistance 2 Person Assist OT- Balance Assessment Sitting Balance and Reactions Static Sitting Balance Ability Fair Dynamic Sitting Balance Ability Poor Standing Balance and Reactions Static Standing Balance Ability Poor M8 OT- IP Objective Assessments Start: 09/02/18 10:29 Freq: Status: Active Protocol: Document 09/02/18 10:30 [facility] (Rec: 09/02/18 10:54 [facility] [id number]) OT Gross Range of Motion Upper Extremity Range of Motion Assessment Within Functional Limits OT Strength Upper Extremity Strength Assessment Within Functional Limits Comments Strength Comments BUE 4/5 OT- Coordination Assessment Comments Coordination Comments Able to do finger to thumb opposition with increased time . OT-Muscle Tone Assessment Muscle Tone WNL Yes OT Sensation Assessment Comments Summary Comments Intact for light touch. M9 OT- IP Assessment and Plan Start: 09/02/18 10:29 Freq: Status: Active Protocol: Document 09/03/18 10:21 [facility] (Rec: 09/03/18 10:34 [facility] [id number]) OT Summary Assessment and Plan Potential Rehabilitation Potential Good Analytic Complexity at Evaluation Low Summary OT Impairments Strength Balance Coordination Functional Cognition Functional Mobility Grooming Dressing Toileting Bathing Toilet Transfers Shower Transfers Progress Towards Goals Slow Progress due to Medical Issues Slow Progress due to Activity Tolerance Slow Progress due to Cognition Assessment Summary Today pt noted needing more assist for functional mobility needs, decreased intiation/ strength of especially RLE and now needing two person assist for transfers. Pt far from baseline and would benefit from skilled rehab. Goals Grooming Goal Standby Assistance Dressing Goal Standby Assistance Toileting Goal Standby Assistance Bathing Goal Minimal Assistance Toilet Transfer Goal Standby Assistance Shower Transfer Goal Contact Guard Assistance Patient/Caregiver Education Goal Caregiver Independent Assisting Patient Days to Meet Goals 10 Frequency of Treatment Frequency Of Treatment Once a Day Treatment Plan OT Treatment Plan ADL Training Functional Cognition Training Functional Mobility Patient/Family Education Discharge Planning Other Treatment Recommendations and Next Stand at sink for grooming, Treatment Focus shower. Discharge Recommendations OT Discharge Recommendations SNF Rehab Home Equipment Needs Shower chair
--- NOTE | 2018-09-03 11:37 | CM.DPC ---
DCP Cont: Met with patient's family in room. Patient was sleeping. , Amandeep, in room, and daughter, who also lives on their property. They are adamant that they do not want her going to skilled. At this time, anticipate that patient will be here for another couple of days, secondary to dizziness not resolving. Dr. Soliman had seen patient today, and will be starting her on an antibiotic to see if this helps relieve some of her symptoms. Mentioned home health physical therapy to family, and they were not opposed to the idea. Started face to face, but was not able to come in contact with provider today, to discuss. P: DCP to continue to follow closely. Patient is not yet medically stable. Will look into home health option if patient is in need of some home therapy and is home bound. Estela Varghese RN/Dielectric Embossing Machine Operator
--- NOTE | 2018-09-03 13:35 | ST.IPTN ---
JANITOR CLEANER Treatment Note JANITOR CLE[employer]ER Treatment Note Start: 09/02/18 10:52 Freq: Status: Active Protocol: Document 09/03/18 17:04 [facility] (Rec: 09/03/18 17:11 [facility] [id number]) Speech Pathology Treatment Note Session Time Visit Start Time 13:50 Visit Stop Time 14:25 Total Visit Minutes 35 Visit Information Visit Number 2 Setting Treatment Setting Acute Care Visit Type Note Type Treatment Note Next Note Type Next Note Type Treatment Note General Information General Information Clinical swallow evaluation completed yesterday. Patient started on Mechanical soft diet, thin liquids. Per nursing report, patient disoriented and with increased agitation overnight pulling out his IV. OT who worked with patient during AM reported patient appeared more confused and less responsive at end of session compared to the beginning of the session and yesterday's session. Subjective Identification Type Name Observations/Patient Presentation Joseph was found to be leaning to the right in bed, with his legs hanging off the bed. He appeared to be trying to get out of bed and even said he was getting out of bed on one occasion during the session, but he was unable to do so. He declined trials of food or liquids, but agreed to answer questions for me. In conversation, Joseph appropriately responded to questions about himself and his environment. Speech was clear without concern for apraxia, aphasia or dysarthria . Patient Knowledge/Awareness of JANITOR CLEANER Role Fair in Treatment Objective Short Term Goals Joseph will demonstrate correct orientation to self, place, date and situation in order to improve cognition and decrease agitation in this setting. Given verbal cues, Joseph will self-feed and remain on task during a meal in order to maintain adequate nutrition/ hydration. Treatment Activities Completed SLUMS examination on which Joseph scored 6/30. He followed simple directions and was oriented to state, but not day or year. He thought he was at [facility]. He recalled 4/5 objects immediately and 0/5 after short delay. He named 3 animals in one minute and perseverated on naming animals later in the session. Difficulty with motor planning and attention affected his clock drawing on which he scribbled at the top, but did not complete despite verbal cues. He answered 2 out of 4 questions about a short story. Overall, his score indicates significant cognitive impairment which could be indicative of dementia. Based on notes from this admission, his cognition appears to fluctuate throughout the day and from day to day. Assessment Patient Response to Treatment Fair Rehab Potential Good Impairments Identified Cognitive-Linguistic Skills Assessment of Improvement Moderate-severe cognitive impairment in the areas of orientation, memory, and attention. Per OT, nursing and dietitian, patient's cognition (along with weakness ) is affecting his ability to maintain adequate nutrition and hydration independently. Adaptive equipment has been trialed and recommended; however, patient likely will need 1:1 assistance, at minimum for verbal encouragement and cues to remain on task during a meal. Plan Therapy Recommendations Continue with Current Program
--- NOTE | 2018-09-03 14:52 | CM.DPC ---
DCP Cont: Spoke to Vonda Shah, [facility] Contractor, to inquire about completing this form. Patient does not have diagnosis of dementia, but is here for an acute CVA. He had not demonstrated any agitated behaviors yesterday, and has not today, but last night, he had exhibited some agitation. Asked her about completing hospital exempt portion, since this tool planner had hospitalist sign, and in additional comment section, added that Seroquel and Remeron was prescribed. Vonda asked if patient had any mental health history, and let her know that there was noting noted in history and physical that he did, but he did have some altered mental status as part of new diagnosis when admitted here. Vonda stated to monitor patient for the next couple of days, and if he continues to have delirum, could go ahead and count as new diagnosis of hospital exempt. She also stated that this could be an isolated case, and hospital exempt may not need to be done, just a list of his new medications, and why they were prescribed. P: DCP will continue to follow closely, and see how patient progresses here in hospital. Estela Varghese, ALBARO/Management Services Technician
--- NOTE | 2018-09-03 16:42 | PM.PN.1 ---
Subjective Date Patient Seen: 09/03/18 Interval history: Patient seen and examined chart reviewed. Patient was noted to be hypoglycemic this evening he is awake and responsive. His speech is somewhat slurred. His is at the bedside and I had a chance to review his current medical management. The plans are in place for him to go to [facility] for ongoing therapy post discharge. Exam Vital Signs (past 8 hours): - 09/03/18 11:33 09/03/18 15:25 Temperature 98.4 F 98.2 F Pulse Rate 74 67 Respiratory Rate 20 16 Blood Pressure 169/97 H 156/75 H Pulse Oximetry 100 95 Oxygen Delivery Method Room Air Oxygen Flow Rate 0 Narrative Exam Narrative: Pleasant cachectic male Lungs: Clear to auscultation Cardiac exam: Regular rate rhythm normal S1-S2 Abdomen: Soft and nontender Extremities: No edema Objective Labs Result Diagrams: 09/02/18 03:08 09/02/18 03:15 Labs: Laboratory Results - last 24 hr 09/03/18 08:11 Urine Color Yellow Urine Appearance Clear Urine pH 7.5 Ur Specific [place] 1.020 Urine Protein Negative Urine Glucose (UA) Negative Urine Ketones Negative Urine Occult Blood Negative Urine Nitrate Negative Urine Bilirubin Negative Urine Urobilinogen 0.2 Ur Leukocyte Esterase Negative Urine RBC None seen Urine WBC None seen Urine Bacteria None seen Ur Culture Indicated? Cult not indicated Micro UA Comment Microscopic normal Assessment & Plan (1) Hypoglycemia: Problem details: Patient found to be hypoglycemic earlier. Will check blood sugars q.i.d.. Consider IV hydration if needed. Will add Ensure to his diet. Current visit: Yes Status: Acute (2) Acute cerebrovascular accident: Problem details: MRI confirmed a lacunar infarct. Will continue PT OT and current medications. Current visit: Yes Status: Acute (3) Osteoporosis: Problem details: Calcium VitD/Bisphosphonate Current visit: No Status: Acute (4) Seizure: Problem details: continue antiepileptic medications Current visit: No Status: Acute (5) Protein calorie malnutrition: Problem details: Nutrition consult. Current visit: Yes Status: Acute Assessment & Plan narrative: Anticipated discharge to [facility]. [facility] VTE Deep Vein Thrombosis/Pulmonary Embolism Present on Admission: No
--- NOTE | 2018-09-03 16:45 | P.PN_ITS ---
Subjective Date Patient Seen: 09/03/18 Interval history: Patient seen and examined chart reviewed. Patient was noted to be hypoglycemic this evening he is awake and responsive. His speech is somewhat slurred. His is at the bedside and I had a chance to review his current medical management. The plans are in place for him to go to [facility] for ongoing therapy post discharge. Exam Vital Signs (past 8 hours): - 09/03/18 11:33 09/03/18 15:25 Temperature 98.4 F 98.2 F Pulse Rate 74 67 Respiratory Rate 20 16 Blood Pressure 169/97 H 156/75 H Pulse Oximetry 100 95 Oxygen Delivery Method Room Air Oxygen Flow Rate 0 Narrative Exam Narrative: Pleasant cachectic male Lungs: Clear to auscultation Cardiac exam: Regular rate rhythm normal S1-S2 Abdomen: Soft and nontender Extremities: No edema Objective Labs Result Diagrams: 09/02/18 03:08 09/02/18 03:15 Labs: Laboratory Results - last 24 hr 09/03/18 08:11 Urine Color Yellow Urine Appearance Clear Urine pH 7.5 Ur Specific [place] 1.020 Urine Protein Negative Urine Glucose (UA) Negative Urine Ketones Negative Urine Occult Blood Negative Urine Nitrate Negative Urine Bilirubin Negative Urine Urobilinogen 0.2 Ur Leukocyte Esterase Negative Urine RBC None seen Urine WBC None seen Urine Bacteria None seen Ur Culture Indicated? Cult not indicated Micro UA Comment Microscopic normal Assessment & Plan (1) Hypoglycemia: Problem details: Patient found to be hypoglycemic earlier. Will check blood sugars q.i.d.. Consider IV hydration if needed. Will add Ensure to his diet. Current visit: Yes Status: Acute (2) Acute cerebrovascular accident: Problem details: MRI confirmed a lacunar infarct. Will continue PT OT and current medications. Current visit: Yes Status: Acute (3) Osteoporosis: Problem details: Calcium VitD/Bisphosphonate Current visit: No Status: Acute (4) Seizure: Problem details: continue antiepileptic medications Current visit: No Status: Acute (5) Protein calorie malnutrition: Problem details: Nutrition consult. Current visit: Yes Status: Acute Assessment & Plan narrative: Anticipated discharge to [facility] VTE Deep Vein Thrombosis/Pulmonary Embolism Present on Admission: No
--- NOTE | 2018-09-03 17:02 | SLP.IPNOTE ---
Attempted to see pt for dysphagia therapy at noon meal. Pt was unavailable due to bowel issues/clean up.
[2018-09-03 19:45] LABS: Add Manual Diff / Slide Review NO; Basophils Absolute Auto 0 /uL (0-100); Basophils Percent Auto 0.5 % (0-2); Eosinophils Absolute Auto 100 /uL (0-450); Eosinophils Percent Auto 1.1 % (2-4); Hematocrit 41.2 % (41-53); Hemoglobin 13.9 g/dL (13.5-17.5); Lymphocytes Absolute Auto 2300 /uL (1100-4500); Lymphocytes Percent Auto 34.7 % (25-40); Mean Corpuscular HGB Conc 33.7 % (30-36); Mean Corpuscular Hemoglobin 30.7 PG (26-34); Mean Corpuscular Volume 91.2 fL (80-100); Monocytes Absolute Auto 500 /uL (0-900); Monocytes Percent Auto 7.2 % (3-14); Neutrophils Absolute Auto 3800 /uL (1500-7000); Neutrophils Percent Auto 56.5 % (50-75); Platelet Count 155 X10^3/uL (150-400); Red Blood Cell Count 4.52 X10^6/uL (4.5-5.9); Red Cell Distribution Width 14.4 % (11.6-14.8); White Blood Cell Count 6.7 X10^3/uL (4.5-11.0)
[2018-09-03 19:56] LABS: BUN Creatinine Ratio 18.8 (6-22); Blood Urea Nitrogen 15 mg/dL (9-20); Calcium 9.1 mg/dL (8.4-10.2); Carbon Dioxide 30 mmol/L (22-32); Chloride 104 mmol/L (98-107); Estimated Glomerular Filt Rate > 60.0 mL/min (>60); Glucose 75 mg/dL (80-110); HEMOLYSIS 39 (0-50); Magnesium 1.8 mg/dL (1.6-2.3); Potassium 3.7 mmol/L (3.4-5.1); Sodium 144 mmol/L (137-145)
[2018-09-03] MEDS: ACETAMINOPHEN 325 MG TABLET 650 MG PO (22:09)
[2018-09-03] MEDS: ATORVASTATIN 20 MG TABLET 80 MG PO (22:10)
[2018-09-03] MEDS: MIRTAZAPINE 15 MG TABLET 30 MG PO (22:10)
[2018-09-04] VITALS (9 sets, daily range): BP systolic 132–185; BP diastolic 65–92; PULSE 53–73; RESP 15–18; TEMP 36.8–37.5; O2SAT 96–100
[2018-09-04] MEDS: PANTOPRAZOLE 20 MG TABLET PO (06:16)
--- NOTE | 2018-09-04 06:35 | PC.NURSE ---
Pt is confused but cooperative. NIH-6. Pt could not tell me what month it was or his age. LS diminished bilaterally. Hypertensive w/ blood pressure 162/109.
--- NOTE | 2018-09-04 09:58 | OT.IP.TRT ---
Current Diagnoses Hypoglycemia, unspecified (09/02/18) Unspecified protein-calorie malnutrition (09/02/18) Cerebral infarction, unspecified (09/02/18) Age-related osteoporosis without current pathological fracture (09/02/18) Unspecified convulsions (09/02/18) Occupational Therapy Treatment Note M2 OT-IP Current Condition Start: 09/02/18 10:29 Freq: Status: Active Protocol: Document 09/02/18 10:30 [facility] (Rec: 09/02/18 10:54 [facility] [id number]) Occupational Therapy Current Condition Current Condition Evaluation Date 09/02/18 Treatment Diagnosis CVA Diagnosis Onset Date 09/02/18 Weight Bearing Status Weight Bearing Status Weight Bear as Tolerated M3 OT- IP Subjective and Pain Start: 09/02/18 10:29 Freq: Status: Active Protocol: Document 09/04/18 09:43 [facility] (Rec: 09/04/18 09:58 [facility] [id number]) OT- Subjective Occupational Therapy Visit Type Type Treatment Note Visit Start Time 08:30 Visit Stop Time 09:15 Total Visit Minutes 45 Occupational Therapy Visit Comments Patient Comments Pt agreeable to get up. Pt cooperative and pleasant. OT Pain Assessment Pain When Pain Assessed At Rest Pain Present Pain Present Denied Pain M4 OT- IP ADL's Start: 09/02/18 10:29 Freq: Status: Active Protocol: Document 09/04/18 09:43 [facility] (Rec: 09/04/18 09:58 [facility] [id number]) OT [id number] General Evaluation Self-Feeding Ability Standby Assistance Areas Needing Assistance Cutting Food Opening Containers Comments OT Self-Feeding Comments Pt tends to flex his head towards his food versus use of right hand with utensil to bring up to his mouth. Today pt able to accurately guide the spoon to the mouth. Pt states when asking pt to use his hand/arm versus head to get the food to his mouth, My tells me that all the time. Pt needing assist from WOOD FUEL PELLETIZER to open Ensure bottle, assist to cut up eggs more to more manageable size to supervisor picking crew. Pt able to use regular sized spoon, still could benefit form larger handle utensils. OT ADL-Grooming General Evaluation Grooming Ability Standby Assistance Areas Needing Assistance Retrieving/Set-up of Grooming Items Comments OT Grooming Comments Pt tends to perseverate on task of brushing his teeth and needing cue to more to the next task. OT ADL-Oral Care General Eval Oral Care Ability Independent OT ADL-Dressing General Eval Lower Body Dressing Ability Maximum Assistance Areas Needing Assistance Socks M5 OT- IP IADL's Start: 09/02/18 10:29 Freq: Status: Active Protocol: Document 09/02/18 10:30 [facility] (Rec: 09/02/18 10:54 [facility] [id number]) OT-Instrumental Activities of Daily Living Medication Management Medication Management Caregiver Administers Money Management Money Management Caregiver Provides Assistance Meal Preparation Meal Preparation Caregiver Provides Assist Screw Machine Operator Screw Machine Operator Comments Pt states assist with needs at home , to verify with pt's family. M6 OT- IP Functional Cognition Start: 09/02/18 10:29 Freq: Status: Active Protocol: Document 09/04/18 09:43 [facility] (Rec: 09/04/18 09:58 [facility] [id number]) Cognitive Factors Limiting Selfcare Function Cognitive Ability Level of Alertness Alert Patient Orientation Name Attention Span Ability Capable of Focused Attention Capable of Sustained Attention Ability to Follow Commands Able to Follow One Step Commands Memory Description Short Term Impaired Safety Awareness Underestimates Need for Assistance Problem Solving Ability Unable to Identify Errors Needs Assist to Identify Solutions Executive Function Ability Unable to Filter Distractions Unable to Make Plans Unable to Organize Plans Unable to Remember Details Cognitive Comments Cognitive Assessment Comments Pt doing better with commands, answering question appropriately with time, able to joke around today. Pt still gets easily distracted and need to have simple concrete commands given. M7 OT- IP Mobility and Balance Start: 09/02/18 10:29 Freq: Status: Active Protocol: Document 09/04/18 09:43 [facility] (Rec: 09/04/18 09:58 [facility] [id number]) OT- Bed Mobility Assessment Rolling Type of Rolling Roll to Left Level of Assistance Standby Assistance Supine to Sit Supine to Sit Assist Moderate Assistance Scooting Scooting to Edge of Bed Moderate Assistance OT-Transfer Assessment Sit to and From Stand Sit to and from Stand Contact Guard Assistance 1 Person Assistance Transfers Transfer Ability Minimal Assistance 1 Person Assistance Technique Transfer Destination Bed Chair Transfer Technique Stand Step Pivot Devices Transfer Assistive Devices Gait Belt Front Wheeled Walker Comments Mobility Comments Pt continue to lean, lateral tilt to the right with posterior tilt and able to stretch while sitting on the edge of the bed with assist. After stretching, pt able to sit more to midline, however quickly returning to lean to the right. Today improved ability to more right leg, still needing a little assist to weight shift. OT- Balance Assessment Sitting Balance and Reactions Static Sitting Balance Ability Fair Dynamic Sitting Balance Ability Poor M8 OT- IP Objective Assessments Start: 09/02/18 10:29 Freq: Status: Active Protocol: Document 09/02/18 10:30 [facility] (Rec: 09/02/18 10:54 [id number] OT Gross Range of Motion Upper Extremity Range of Motion Assessment Within Functional Limits OT Strength Upper Extremity Strength Assessment Within Functional Limits Comments Strength Comments BUE 4/5 OT- Coordination Assessment Comments Coordination Comments Able to do finger to thumb opposition with increased time . OT-Muscle Tone Assessment Muscle Tone WNL Yes OT Sensation Assessment Comments Summary Comments Intact for light touch. M9 OT- IP Assessment and Plan Start: 09/02/18 10:29 Freq: Status: Active Protocol: Document 09/04/18 09:43 [facility] (Rec: 09/04/18 09:58 [id number] OT Summary Assessment and Plan Potential Rehabilitation Potential Good Analytic Complexity at Evaluation Low Summary OT Impairments Strength Balance Coordination Functional Cognition Functional Mobility Grooming Dressing Toileting Bathing Toilet Transfers Shower Transfers Progress Towards Goals Slow Progress due to Medical Issues Slow Progress due to Activity Tolerance Assessment Summary Pt more alert today and actively participating in therapy. Pt will benefit from skilled rehab to work on BUE strength, overall endurance, and balance needs. Goals Grooming Goal Standby Assistance Dressing Goal Standby Assistance Toileting Goal Standby Assistance Bathing Goal Minimal Assistance Toilet Transfer Goal Standby Assistance Shower Transfer Goal Contact Guard Assistance Patient/Caregiver Education Goal Caregiver Independent Assisting Patient Days to Meet Goals 7 Frequency of Treatment Frequency Of Treatment Once a Day Treatment Plan OT Treatment Plan ADL Training Functional Cognition Training Functional Mobility Patient/Family Education Discharge Planning Other Treatment Recommendations and Next Stand at sink for grooming, Treatment Focus shower. Discharge Recommendations OT Discharge Recommendations SNF Rehab Home Equipment Needs Shower chair
--- NOTE | 2018-09-04 10:22 | ST.IPTN ---
RESEARCH QUALITY ASSURANCE SPECIALIST Treatment Note RESEARCH QUALITY ASSURANCE SPECIALIST Treatment Note Start: 09/02/18 10:52 Freq: Status: Active Protocol: Document 09/04/18 10:15 [facility] (Rec: 09/04/18 10:22 [facility] [id number]) Speech Pathology Treatment Note Session Time Visit Start Time 08:55 Visit Stop Time 09:25 Total Visit Minutes 30 Visit Information Visit Number 3 Setting Treatment Setting Acute Care Visit Type Note Type Treatment Note Next Note Type Next Note Type Treatment Note General Information General Information Joseph is being seen for dysphagia management and cognitive training. Subjective Identification Type Name Observations/Patient Presentation Joseph was in the chair working with OT on brushing his teeth prior to meal. He was quiet, but cooperative and pleasant and responded appropriately to questions. Patient Knowledge/Awareness of RESEARCH QUALITY ASSURANCE SPECIALIST Role Fair in Treatment Objective Short Term Goals Joseph will demonstrate correct orientation to self, place, date and situation in order to improve cognition and decrease agitation in this setting. Given verbal cues, Joseph will self-feed and remain on task during a meal in order to maintain adequate nutrition/ hydration. Treatment Activities Observed Joseph with breakfast and provided feedback and education related to clearing oral cavity by alternating liquids/solids. No signs of pharyngeal dysphagia observed. Set-up assistance needed, but Joseph was able to self-feed. Training in use of white board and clock in room to improve orientation during this hospital stay. Joseph was able to read the board and answer questions about the date. Assessment Patient Response to Treatment Good Rehab Potential Good Impairments Identified Cognitive-Linguistic Skills Assessment of Improvement Cognitively, Joseph appears to improve each day. Recommend re-assessment of cognition with SLUMs tomorrow if possible. Ongoing dysphagia management including reminders for clearing oral cavity throughout meal to decrease choking risk. Plan Therapy Recommendations Continue with Current Program
[2018-09-04] MEDS: CLOPIDOGREL 75 MG TABLET PO (11:30)
[2018-09-04] MEDS: FELODIPINE ER 5 MG TAB 10 MG PO (11:30)
[2018-09-04] MEDS: levETIRAcetam 250 MG TABLET 500 MG PO ×2 (11:31→21:42)
[2018-09-04] MEDS: ASPIRIN EC 81 MG TABLET PO (11:31)
[2018-09-04] MEDS: QUETIAPINE 25 MG TABLET 12.5 MG PO ×2 (11:31→21:42)
[2018-09-04] MEDS: PHENYTOIN ER 100 MG CAPSULE PO ×2 (11:31→21:42)
--- NOTE | 2018-09-04 12:02 | PT.IPTN ---
Current Diagnoses Hypoglycemia, unspecified (09/02/18) Unspecified protein-calorie malnutrition (09/02/18) Cerebral infarction, unspecified (09/02/18) Age-related osteoporosis without current pathological fracture (09/02/18) Unspecified convulsions (09/02/18) Physical Therapy Treatment Note M2 PT-IP Current Condition Start: 09/02/18 07:53 Freq: NEEDED Status: Active Protocol: Document 09/02/18 12:41 RS (Rec: 09/02/18 12:49 RS [id number]) Physical Therapy Current Condition Current Condition Evaluation Date 09/02/18 Treatment Diagnosis impaired mobility Onset Date 08/31/18 M3 PT-IP Subjective Start: 09/02/18 07:53 Freq: NEEDED Status: Active Protocol: Document 09/04/18 11:59 [facility] (Rec: 09/04/18 12:02 [facility] [email or web address]) Subjective Physical Therapy Visit Type Type Treatment Note Visit Start Time 11:35 Visit Stop Time 11:55 Total Visit Minutes 20 Number of GIN OPERATOR Visits 2 Physical Therapy Visit Comments Patient Comments Pt willing to walk. M4 PT-IP Mobility and Gait Start: 09/02/18 07:53 Freq: NEEDED Status: Active Protocol: Document 09/04/18 11:59 [facility] (Rec: 09/04/18 12:02 [facility] [email or web address]) PT-Transfer Assessment Sit to and From Stand Sit to and from Stand Contact Guard Assistance 1 Person Assistance Use of Upper Extremities Equipment Transfer Assistive Device Gait Belt Front Wheeled Walker Transfers Transfer Destination Chair Transfer Ability Level of Assist Minimal Assistance 1 Person Assistance Use of Upper Extremities Gait Assessment Gait Gait Assistance Required: Moderate Assistance 1 Person Assist Distance (Feet) 15 Able to Maintain Weight Bearing Status Yes During Gait Assistive Devices Assistive Device Front Wheeled Walker Gait Deviations General Gait Pattern Decreased Stride Length Decreased Feet Clearance Flexed Trunk Lateral Trunk Lean Narrow Based Gait Step-to Gait Factors Limiting Gait Function Factors Limiting Gait Function Decreased Activity Tolerance Decreased Strength Poor Balance Poor Safety Awareness Comments Gait Comments Pt ambulated with asssit for FWW management, weight shift and forward advancement of right LE. M5 PT-IP Objective Assessments Start: 09/02/18 07:53 Freq: NEEDED Status: Active Protocol: Document 09/02/18 12:41 RS (Rec: 09/02/18 12:49 RS [email or web address]) Orientation Orientation/Cognition Level of Alertness Confusional State Orientation Name Comments defer to SUPERVISOR LOCOMOTIVE/OT cog assessments Gross Range of Motion Upper Extremity ROM Assessment Within Functional Limits Lower Extremity ROM Assessment Within Functional Limits Strength Comments Strength Comments not formally assessed as pt had difficulty following specific commands for strength testing, pt presents with at least antigravity strength M6 PT-IP Treatment Start: 09/02/18 07:53 Freq: NEEDED Status: Active Protocol: Document 09/02/18 12:41 RS (Rec: 09/02/18 12:49 RS [email or web address]) Physical Therapy Treatment Education Education Provided Safety M7 PT-IP Assessment and Plan Start: 09/02/18 07:53 Freq: NEEDED Status: Active Protocol: Document 09/04/18 11:59 [facility] (Rec: 09/04/18 12:02 [facility] [email or web address]) PT Summary Assessment and Plan Summary Assessment Summary Pt slowly improving with mobility. HE need cues for mobility. He need less assist for sit to stand. He need mod A for gait. Frequency of Treatment Frequency Of Treatment Once a Day Treatment Plan Physical Therapy Treatment Plan Bed Mobility Training Transfer Training Gait Training Therapeutic Exercise Balance Retraining Post Op Education Discharge Planning Hot or Cold Pack Neuromuscular Re-ed Coordination Retraining Manual Therapy Recommendations To Nursing Amount of Assist Needed 1 Person Assist Discharge Recommendations PT Discharge Recommendations SNF Rehab
--- NOTE | 2018-09-04 16:54 | P.PN_ITS ---
Subjective Date Patient Seen: 09/04/18 Interval history: Patient is sitting in a chair with no specific complaints. There was a report of agitation last evening however both his current nurse and the patient denies any issues with agitation. Patient would like to go home. However he is a max of 1 person assist and pivot with a walker currently. He is not in a position to return home. Arrangements are currently underway for transfer to senior living unit at [facility]. I have discussed this with his who concurs with the plan. Exam Vital Signs (past 8 hours): - 09/04/18 10:20 09/04/18 13:00 09/04/18 15:41 Temperature 99.2 F 99.4 F Pulse Rate 60 73 Respiratory Rate 16 18 Blood Pressure 132/65 140/90 Pulse Oximetry 100 99 96 Oxygen Delivery Method Room Air Oxygen Flow Rate 0 Narrative Exam Narrative: A frail elderly male in no acute distress Lungs: Clear to auscultation Cardiac exam: Regular rate rhythm normal S1-S2 Abdomen: Soft nontender nondistended Extremities: No edema Objective Labs Result Diagrams: 09/03/18 19:32 09/03/18 19:32 Labs: Laboratory Results - last 24 hr 09/03/18 09/03/18 19:32 19:32 WBC 6.7 RBC 4.52 Hgb 13.9 Hct 41.2 MCV 91.2 MCH 30.7 MCHC 33.7 RDW 14.4 Plt Count 155 Neut % (Auto) 56.5 Lymph % (Auto) 34.7 [place] % (Auto) 7.2 Eos % (Auto) 1.1 L Baso % (Auto) 0.5 Neut # (Auto) 3800 Lymph # (Auto) 2300 [place] # (Auto) 500 Eos # (Auto) 100 Baso # (Auto) 0 Sodium 144 Potassium 3.7 Chloride 104 Carbon Dioxide 30 BUN 15 Creatinine 0.80 Estimated GFR > 60.0 BUN/Creatinine Ratio 18.8 Glucose 75 L Calcium 9.1 Magnesium 1.8 Assessment & Plan (1) Acute cerebrovascular accident: Problem details: MRI confirmed a lacunar infarct. Will continue PT OT and current medications. Current visit: Yes Status: Acute (2) Hypoglycemia: Problem details: Patient found to be hypoglycemic earlier. Will check blood sugars q.i.d.. C onsider IV hydration if needed. Will add Ensure to his diet. Current visit: Yes Status: Acute (3) Protein calorie malnutrition: Problem details: Nutrition consult. Current visit: Yes Status: Acute (4) Osteoporosis: Problem details: Calcium VitD/Bisphosphonate Current visit: No Status: Acute Assessment & Plan narrative: Await placement at [facility]. Quality VTE Deep Vein Thrombosis/Pulmonary Embolism Present on Admission: No
[2018-09-04] MEDS: ATORVASTATIN 20 MG TABLET 80 MG PO (21:41)
[2018-09-04] MEDS: MIRTAZAPINE 15 MG TABLET 30 MG PO (21:42)
[2018-09-05 01:12] VITALS: O2SAT 99
[2018-09-05 03:00] VITALS: BP 189/107; PULSE 64; RESP 16; TEMP 36.7; O2SAT 96
--- NOTE | 2018-09-05 04:00 | PC.NURSE ---
Repeat blood glucose check at 0230 = 78. Gave beverage and recheck at 0400 = 118. Pt able to sleep, denies N/V/D pain.
[2018-09-05 04:38] VITALS: BP 147/75; PULSE 66
[2018-09-05] MEDS: PANTOPRAZOLE 20 MG TABLET PO (06:45)
[2018-09-05 08:00] VITALS: BP 159/94; PULSE 88; RESP 18; TEMP 36; O2SAT 100
[2018-09-05 09:22] VITALS: O2SAT 95
[2018-09-05] MEDS: levETIRAcetam 250 MG TABLET 500 MG PO (09:50)
[2018-09-05] MEDS: FELODIPINE ER 5 MG TAB 10 MG PO (09:50)
[2018-09-05] MEDS: PHENYTOIN ER 100 MG CAPSULE PO (09:50)
[2018-09-05] MEDS: ASPIRIN EC 81 MG TABLET PO (09:50)
[2018-09-05] MEDS: CLOPIDOGREL 75 MG TABLET PO (09:50)
[2018-09-05] MEDS: QUETIAPINE 25 MG TABLET 12.5 MG PO (09:51)
--- NOTE | 2018-09-05 10:16 | P.DS_ITS ---
History of Present Illness Date Patient Seen: 09/05/18 Chief complaint: constipated no appetite no energy x2 hours Narrative: Mr. Joseph Milan is a 73-year-old male with history significant for prior stroke with residual left hemiparesis, seizure disorder, hypertension, hyperlipidemia and iron deficiency anemia who presents to the ER with generalized weakness and altered mental status. The patient is altered and unable provide accurate information and the is poor historian. However information appears that the patient has had symptoms of left leg weakness altered speech difficulty word finding and right-sided weakness for between 2 and 7 days. The patient has residual left hemiparesis per the 's reported bedside from his prior CVA. He has never return to baseline function but is able to dress and bathe himself independently but is limited in his capacity for additional ADLs. At the time of the examination the patient denies fevers or chills and has no headaches or dizziness. He reports his vision and hearing are normal. He denies chest pain or palpitations, shortness of breath cough or wheezing. He reports no complaints of abdominal pain and has no nausea or vomiting. He has had no diarrhea or constipation and denies urinary complications. Uses no assistive devices for ambulation. The informations verified with assistance of the patient's . Upon arrival in ER the patient is afebrile with temperature 97?. He is bradycardic with heart rate of 53 and a blood pressure 160/95. His respirations are 11 with oxygen saturation 100% on room air. A CT scan without contrast obtained which finds no acute intercranial pathology but does note significant confluent nonspecific white matter densities. The EKG is reviewed by myself find a sinus bradycardia with a first-degree AV block with a as needed oval of 205 milliseconds and right bundle branch block. There is no ectopy or signs of ischemia however has had previous inferior infarct with Q-waves in leads 2 3 and AVF. On laboratory analysis his white count of 6.5 and hemoglobin of 12.8 and hematocrit of 38 with platelets of 141. His coags within normal limits and his tox screen is yet pending. His electrolytes within normal remits however has an elevated BUN creatinine ratio with a BUN of 26 and creatinine of 0.8. His blood sugar is 85. The patient is admitted to the hospital for acute CVA. Discharge Providers Date of admission: 09/02/18 04:16 Discharge Date: 09/05/18 Consults: 09/02/18 05:09 Consult to Discharge Planning Routine Comment: Consult to Occupational Therapy Evaluate & Treat Comment: Hx right hemisphere CVA, new confusion, aphagia, a Physician Instructions: Evaluate and treat Consult to Physical Therapy Evaluate & Treat Comment: Hx CVA, new confusion, aphagia, ataxia Physician Instructions: Evaluate and Treat Consult to Speech Therapy Evaluate & Treat Comment: Hx CVA, new confusion, aphagia, ataxia Physician Instructions: Evaluate and treat 09/02/18 05:54 Consult to Dietitian, Adult Routine Comment: Reason For Exam: malnutrion 09/03/18 06:00 Consult to PICC Line RN Urgent Comment: Discharge provider: Gila Miller MD Summary Discharge Diagnosis: 1. Acute lacunar infarct 2. Prior history of stroke 3. Hypertension 4. Hyperlipidemia 5. Iron deficiency anemia 6. Protein calorie malnutrition 7. GERD 8. Seizure disorder 9. Depression Hospital Course: Patient was admitted to the hospital for confusion, left leg weakness, slurred speech. His head CT initially was negative. His MRI confirmed an acute lacunar infarct. The MRI findings are as follows: cute subcentimeter lacunar infarct involving the left parietal periventricular white matter. Diffuse small white matter signal changes, probably represent chronic microvascular ischemic disease, versus statistically less likely demyelination or other infect ious, inflammatory, neurodegenerative etiology, technically nonspecific. BRAIN MR ANGIOGRAM: No focal stenosis or occlusion. NECK MR ANGIOGRAM: No focal ICA stenosis. Patient was seen by PT OT and speech his diet was advanced. He had difficulty ambulating and despite working with physical therapy and occupational therapy was recommended that he go to rehab at discharge for further rehabilitation. The patient had no further difficulty. He did have at times slowing of his speech, slurring of his speech but overall was awake and appropriate. Arrangements were made for him to transfer to the retirement facility for ongoing rehabilitation. Status at Discharge Cognitive/behavioral status at discharge: confused Functional status at discharge: uses cane/walker Overall status at discharge: patient is not back to baseline Time Spent with Patient Less than 30 minutes Exam Vital Signs (past 8 hours): - 09/05/18 03:00 09/05/18 04:38 09/05/18 08:00 Temperature 98.0 F 96.8 F L Pulse Rate 64 66 88 Respiratory Rate 16 18 Blood Pressure 189/107 H 147/75 H 159/94 H Pulse Oximetry 96 100 09/05/18 09:22 Temperature Pulse Rate Respiratory Rate Blood Pressure Pulse Oximetry 95 Oxygen Delivery Method Room Air Oxygen Flow Rate 0 Narrative Exam Narrative: Frail elderly male in no obvious distress Lungs: Clear to auscultation Cardiac exam: Regular rate and rhythm normal S1-S2 Abdomen: Soft nontender nondistended Extremities: No edema Neuro exam: The patient is awake and alert, somewhat confused speech is slurred Objective Labs Result Diagrams: 09/03/18 19:32 09/03/18 19:32 Discharge Plan Discharge Plan Discharge Problem: Acute cerebrovascular accident Patient Disposition: SNF Transfer to: [facility] Transportation: [facility] I certify the postop hospital retirement care is medically necessary on a continuing basis for any conditions for which he/ she received care during this hospitalization.: Yes The receiving facility has agreed to accept transfer and provide medical treatment.: Yes Discharge Med Rec/Prescriptions Prescriptions: New atorvastatin [Lipitor] 20 mg Tablet 80 mg PO BEDTIME Qty: 30 RF: 0 clopidogrel 75 mg Tablet 75 mg PO DAILY Qty: 30 RF: 0 Continued omeprazole 20 MG tablet,delayed release (DR/EC) 20 mg PO QDAY Qty: 0 RF: 0 loratadine 10 MG tablet 10 mg PO QDAY RF: 0 mirtazapine 30 MG tablet 30 mg PO HS RF: 0 levetiracetam 500 mg tablet 500 mg PO BID RF: 0 lisinopril 20 mg tablet 20 mg PO DAILY RF: 0 phenytoin sodium extended 100 mg capsule 1 cap PO BID RF: 0 fluoxetine 10 mg capsule 10 mg PO DAILY RF: 0 felodipine 10 mg tablet extended release 24 hr 1 tab PO DAILY RF: 0 ferrous sulfate 324 mg (65 mg iron) tablet,delayed release (DR/EC) 1 tab PO DAILY RF: 0 Disabled [address]ing Permit 1 ea miscellaneous DIRECTED RF: 0 Discontinued aspirin 81 mg tablet,delayed release (DR/EC) 1 tab PO DAILY RF: 0 Provider Discharge Instructions Diet: Low-sodium Liquid consistency: Normal/Thin Food texture: Soft [facility] Reason for rehabilitation: Therapy following stroke Rehab type: Physical therapy, Occupational therapy and Speech therapy Discharge Data Attending Provider: Teo Gomez Admit Date/Time: 09/02/18 04:16 Quality VTE Deep Vein Thrombosis/Pulmonary Embolism Present on Admission: No
--- NOTE | 2018-09-05 11:05 | PT.IPTN ---
Current Diagnoses Hypoglycemia, unspecified (09/02/18) Unspecified protein-calorie malnutrition (09/02/18) Cerebral infarction, unspecified (09/02/18) Age-related osteoporosis without current pathological fracture (09/02/18) Unspecified convulsions (09/02/18) Physical Therapy Treatment Note M2 PT-IP Current Condition Start: 09/02/18 07:53 Freq: NEEDED Status: Active Protocol: Document 09/02/18 12:41 RS (Rec: 09/02/18 12:49 RS [email or web address]) Physical Therapy Current Condition Current Condition Evaluation Date 09/02/18 Treatment Diagnosis impaired mobility Onset Date 08/31/18 M3 PT-IP Subjective Start: 09/02/18 07:53 Freq: NEEDED Status: Active Protocol: Document 09/05/18 11:05 GGD (Rec: 09/05/18 11:56 GGD [id number]) Subjective Physical Therapy Visit Type Type Treatment Note Visit Start Time 10:45 Visit Stop Time 11:05 Total Visit Minutes 25 Number of TURBINE OPERATOR Visits 3 Physical Therapy Visit Comments Patient Comments Pt willing to get out of bed. M4 PT-IP Mobility and Gait Start: 09/02/18 07:53 Freq: NEEDED Status: Active Protocol: Document 09/05/18 11:05 GGD (Rec: 09/05/18 11:56 GGD [id number]) PT-Bed Mobility Assessment Supine to Sit Supine to Sit Standby Assistance Head of Bed Elevated Scooting Scooting to Edge of Bed Minimal Assistance PT-Transfer Assessment Sit to and From Stand Sit to and from Stand Contact Guard Assistance 1 Person Assistance Use of Upper Extremities Equipment Transfer Assistive Device Gait Belt Front Wheeled Walker Transfers Transfer Destination Chair Transfer Ability Level of Assist Minimal Assistance 1 Person Assistance Use of Upper Extremities Comments Mobility Comments PT need CGA to min for EOB sitting balance. Standing at EOB for brief change max assist for donning and doffing brief. Gait Assessment Gait Gait Assistance Required: Moderate Assistance 1 Person Assist Distance (Feet) 20 Able to Maintain Weight Bearing Status Yes During Gait Assistive Devices Assistive Device Front Wheeled Walker Gait Deviations General Gait Pattern Decreased Stride Length Decreased Feet Clearance Flexed Trunk Lateral Trunk Lean Narrow Based Gait Step-to Gait Factors Limiting Gait Function Factors Limiting Gait Function Decreased Activity Tolerance Decreased Strength Poor Balance Poor Safety Awareness Comments Gait Comments Pt ambulated with asssit for FWW management, weight shift and forward advancement of right LE. Pt in chair with alarm on. M5 PT-IP Objective Assessments Start: 09/02/18 07:53 Freq: NEEDED Status: Active Protocol: Document 09/02/18 12:41 RS (Rec: 09/02/18 12:49 RS [email or web address]) Orientation Orientation/Cognition Level of Alertness Confusional State Orientation Name Comments defer to PLASTIC PRINTER/OT cog assessments Gross Range of Motion Upper Extremity ROM Assessment Within Functional Limits Lower Extremity ROM Assessment Within Functional Limits Strength Comments Strength Comments not formally assessed as pt had difficulty following specific commands for strength testing, pt presents with at least antigravity strength M6 PT-IP Treatment Start: 09/02/18 07:53 Freq: NEEDED Status: Active Protocol: Document 09/02/18 12:41 RS (Rec: 09/02/18 12:49 RS [email or web address]) Physical Therapy Treatment Education Education Provided Safety M7 PT-IP Assessment and Plan Start: 09/02/18 07:53 Freq: NEEDED Status: Active Protocol: Document 09/05/18 11:05 GGD (Rec: 09/05/18 11:56 GGD [id number]) PT Summary Assessment and Plan Summary Assessment Summary Pt slow with mobility. He need min A to CGA for sitting balance, pt had LOB to the right. Pt need assist for gait and forward advancement of right LE. Frequency of Treatment Frequency Of Treatment Once a Day Treatment Plan Physical Therapy Treatment Plan Bed Mobility Training Transfer Training Gait Training Therapeutic Exercise Balance Retraining Post Op Education Discharge Planning Hot or Cold Pack Neuromuscular Re-ed Coordination Retraining Manual Therapy Recommendations To Nursing Amount of Assist Needed 1 Person Assist Discharge Recommendations PT Discharge Recommendations SNF Rehab
[2018-09-05 12:00] VITALS: BP 143/74; PULSE 63; RESP 16; TEMP 36.8; O2SAT 99
--- NOTE | 2018-09-05 13:06 | CM.DPC ---
DCP: continued: case received and discussed in Team Rounds. Dr. Miller noted that pt was ready to go to [facility] if bed was available and that she had spoken yesterday about this with pt's Fariba and that Fariba had confirmed her hope was [facility] for pt as he has been there for prior rehab stays. EMR reviewed. Spoke with [facility]/Laury who confirmed she had received the referral and that [facility] would accept pt today. She stated [facility] w/c van could be here at 1300. Called Fariba with update. She noted thankfulness for the call and said she would meet her either later this evening at the [facility] or tomorrow. Agreed to update him/done. (He smiled and said Well that's good, thank you.) Dr. Miller was updated, completed the d/c orders and these were faxed to [facility] and placed to snf packet. PASRR: completed. Pt remained on his prior home medications for depression with no new medications ordered that would affect the PASRR Section IV status. PASRR faxed to [facility], placed into SNF packet and copy to [facility] Noemi to scan into electronic record. ALBARO Miles was updated. P: pt to [facility] today as per above
--- NOTE | 2018-09-05 13:13 | PC.NURSE ---
Day shift: Pt going to [facility] ow ([phone]). Transport person here and they have to [facility] packet. Pt has all personal belongings. Pt is leaving in WC. All info in [facility] packet. has signed what needs to be signed. Report given to SNF person and all questions answered. Pt appears to be glad to be going to [facility].
== END 2018-09-05 13:16 | DRG 64 ==
LOC: ED 04:00 → ICU 04:18 → AC 04:30
PROVIDERS: Internal Medicine; Admitting Provider Nurse Practitioner Adult Health; Emergency Provider Emergency Medicine; Visit Provider Nurse Practitioner Adult Health
DX: I63.81 Other cerebral infarction due to occlusion or stenosis of small artery (principal); R40.2222 Coma scale, best verbal response, incomprehensible words, at arrival to emergency department; I69.354 Hemiplegia and hemiparesis following cerebral infarction affecting left non-dominant side; E46 Unspecified protein-calorie malnutrition; Z68.1 Body mass index [BMI] 19.9 or less, adult; R47.01 Aphasia; R27.0 Ataxia, unspecified; R29.707 NIHSS score 7; R40.2362 Coma scale, best motor response, obeys commands, at arrival to emergency department; R40.2142 Coma scale, eyes open, spontaneous, at arrival to emergency department; R41.0 Disorientation, unspecified; I10 Essential (primary) hypertension; G40.909 Epilepsy, unspecified, not intractable, without status epilepticus; E78.5 Hyperlipidemia, unspecified; D64.9 Anemia, unspecified; E16.2 Hypoglycemia, unspecified; M81.0 Age-related osteoporosis without current pathological fracture
CPT/HCPCS: 36415; 70450; 70548; 70553; 80048; 80305; 81001; 82962; 83036; 83540; 83550; 83735; 85025; 85610; 85730; 92507; 92610; 93005; 94762; 96360; 96361; 97116; 97162; 97165; 97530; 97535; 99283; 99284; J1630

== ENCOUNTER → 2018-09-06 07:49 | Outpatient (ROUT) | payer SELFPAY ==
[2018-09-02 05:41] VITALS: BMI 15.6
[2018-09-06 08:48] LABS: Add Manual Diff / Slide Review NO; BUN Creatinine Ratio 28.9 (6-22); Basophils Absolute Auto 0 /uL (0-100); Basophils Percent Auto 0.4 % (0-2); Blood Urea Nitrogen 26 mg/dL (9-20); Calcium 9.2 mg/dL (8.4-10.2); Carbon Dioxide 28 mmol/L (22-32); Chloride 104 mmol/L (98-107); Eosinophils Absolute Auto 100 /uL (0-450); Estimated Glomerular Filt Rate > 60.0 mL/min (>60); Glucose 115 mg/dL (80-110); HEMOLYSIS < 15 (0-50); Hematocrit 39.6 % (41-53); Hemoglobin 13.3 g/dL (13.5-17.5); Lymphocytes Absolute Auto 1800 /uL (1100-4500); Lymphocytes Percent Auto 30.3 % (25-40); Mean Corpuscular HGB Conc 33.4 % (30-36); Mean Corpuscular Hemoglobin 30.6 PG (26-34); Mean Corpuscular Volume 91.6 fL (80-100); Monocytes Absolute Auto 400 /uL (0-900); Monocytes Percent Auto 6.5 % (3-14); Neutrophils Absolute Auto 3700 /uL (1500-7000); Neutrophils Percent Auto 61.8 % (50-75); Platelet Count 180 X10^3/uL (150-400); Red Blood Cell Count 4.33 X10^6/uL (4.5-5.9); Red Cell Distribution Width 14.5 % (11.6-14.8); Sodium 141 mmol/L (137-145)
== END ==
PROVIDERS: Visit Provider Nurse Practitioner Family
DX: I63.9 Cerebral infarction, unspecified (principal); D64.9 Anemia, unspecified
CPT/HCPCS: 36415; 80048; 85025

== ENCOUNTER → 2018-09-09 07:39 | Outpatient (ROUT) | payer MEDICARE, OTHER, SELFPAY ==
[2018-09-02 05:41] VITALS: BMI 15.6
== END ==
PROVIDERS: Visit Provider Nurse Practitioner Family

== ENCOUNTER 2018-11-05 22:32 | Inpatient (IN) | payer MEDICARE, OTHER, SELFPAY ==
[2018-09-02 05:41] VITALS: BMI 15.6
[2018-11-05 22:45] VITALS: BP 199/105; PULSE 64; RESP 18; TEMP 36.9; O2SAT 100
--- NOTE | 2018-11-05 22:47 | ED.WEAKNESS ---
HPI - Weakness General Chief complaint: Weakness Stated complaint: lethargic, not responding well Time Seen by Provider: 11/05/18 22:34 Source: patient and family Mode of arrival: wheelchair Limitations: no limitations History of Present Illness HPI Narrative: 73-year-old male nonsmoker with extensive medical history including stroke with residual left-sided paresis, renal failure, seizures, and malnutrition presents with and other family in a wheelchair and a chief complaint of increasing generalized weakness over the past few days worsening over the day. states that he has passed some dark stool in that time frame. Patient has not had any fever chills nor nausea or vomiting. He has not had much to eat or drink in the past few days, admittedly because he has poor appetite. He does not have a history of alcohol abuse, liver failure or known esophageal varices but has had gastrointestinal bleeding in the past. Family are poor historians. Patient is on Plavix and was admitted in August for stroke, he had been at a local rehab until about 2 or 3 weeks ago. He has had no coffee-ground emesis nor bright red blood in his stool. Patient required significant help getting from the wheelchair to his bed MD Complaint: generalized weakness, lack of energy and difficulty walking Onset (ago): day(s) Duration: constant Location: generalized Associated symptoms: dark stools and loss of appetite Related Data Home Medications Medication Instructions Recorded Confirmed omeprazole 20 mg PO QDAY #0 11/13/16 09/02/18 Disabled Parking Permit 1 ea MISCELLANEOUS DIRECTED 12/25/17 09/02/18 felodipine 1 tab PO DAILY 12/25/17 09/02/18 ferrous sulfate 1 tab PO DAILY 12/25/17 09/02/18 fluoxetine 10 mg PO DAILY 12/25/17 09/02/18 levetiracetam 500 mg PO BID 12/25/17 09/02/18 lisinopril 20 mg PO DAILY 12/25/17 09/02/18 loratadine 10 mg PO QDAY 12/25/17 09/02/18 mirtazapine 30 mg PO HS 12/25/17 09/02/18 phenytoin sodium extended 1 cap PO BID 12/25/17 09/02/18 Previous Rx's Medication Instructions Recorded atorvastatin [Lipitor] 80 mg PO BEDTIME #30 tab 09/05/18 clopidogrel 75 mg PO DAILY #30 tab 09/05/18 Allergies Allergy/AdvReac Type Severity Reaction Status Date / Time vancomycin [VANCOMYCIN] Allergy Unknown VANCO Verified 12/26/17 08:35 ALLERGY ON SNF FACE SHEET Review of Systems Constitutional Denies chills, Denies fever(s), Reports lethargy, Reports malaise, Reports poor appetite and Reports weakness Eyes Denies change in vision, Denies eye discharge, Denies irritation and Denies loss of vision ENT Ears, Nose, Mouth, and Throat: Denies change in voice, Denies neck pain and Denies sore throat Cardiovascular Denies chest pain, Denies irregular heart rhythm, Denies lightheadedness, Denies palpitations, Denies dyspnea, Denies dyspnea on exertion and Denies orthopnea Respiratory Denies cough, Denies dyspnea, Denies dyspnea on exertion and Denies wheezing Gastrointestinal Gastrointestinal: Denies abdominal pain, Reports change in bowel habits, Denies diarrhea, Denies nausea and Denies vomiting Genitourinary Denies hematuria, Denies flank pain, Denies urinary incontinence and Denies urinary urgency Musculoskeletal Denies neck pain Integumentary/Breasts Denies pruritus, Denies erythema, Denies rash and Denies wounds Neurologic Denies confusion, Denies loss of vision and Reports weakness Psychiatric Denies anxiety, Denies confusion, Denies depression, Denies homicidal ideation and Denies suicidal ideation Endocrine Denies palpitations Hematologic/Lymphatic Denies easy bruising Allergic/Immunologic Denies wheezing [facility] Social History household members: spouse and children Smoking Status: Never smoker alcohol intake: never Exam Narrative Exam Narrative: GENERAL: 73-year-old male appears stated age, malnourished and very weak, even for him. He is alert and responds appropriately. Requires significant help getting from wheelchair HEAD: Atraumatic. Normocephalic. No temporal or scalp tenderness. Temporal wasting EYES: No conjunctival pallor Pupils equal round and reactive. Extraocular motions intact. No scleral icterus. No injection or drainage. ENT: Dry mucous membrane Nose without bleeding, purulent drainage or septal hematoma. Throat without erythema, tonsillar hypertrophy or exudate. Uvula midline. Airway patent. NECK: Trachea midline. No JVD or lymphadenopathy. Supple, nontender, no meningeal signs. CARDIOVASCULAR: Regular rate and rhythm without murmurs, gallops, or rubs. RESPIRATORY: Clear to auscultation. Breath sounds equal bilaterally. No wheezes, rales, or rhonchi. GASTROINTESTINAL: Abdomen soft, non-tender, nondistended. No hepato-splenomegaly, or palpable masses. No guarding. RECTAL: dark tarry stool, no BRBPR. Heme + EXTREMITIES: No clubbing, cyanosis, or edema. No joint tenderness, effusion, or edema noted. BACK: Nontender without deformity or crepitance. No flank tenderness. NEURO: alert. at his baseline SKIN: No rash or erythema. Poor turgor Initial Vital Signs Initial Vital Signs: Vital Signs Temperature 98.5 F 11/05/18 22:45 Pulse Rate 64 11/05/18 22:45 Respiratory Rate 18 11/05/18 22:45 Blood Pressure 199/105 H 11/05/18 22:45 Pulse Oximetry 100 11/05/18 22:45 Course Orders Ordered: ED Orders 11/05/18 22:45 EKG-12 Lead Stat 11/05/18 23:40 Complete Blood Count AUTO DIFF Stat Comprehensive Metabolic Panel Stat Discontinued Medications Ondansetron HCl (Zofran) 4 mg IV NOW ONE Stop: 11/05/18 22:45 Pantoprazole Sodium (Protonix) 80 mg IV NOW ONE Stop: 11/05/18 22:45 Last Admin: 11/05/18 22:54 Dose: 80 mg Consultations Consultation #1: call to Dr. Howell, happy to be consulted for likely scope tomorrow. Wants us to please keep patient NPO Consultation #2: hospitalist happy to accept Vital Signs - 8 hr 11/05/18 22:45 11/05/18 22:58 11/05/18 23:39 Temperature 98.5 F Pulse Rate 64 55 L 57 L Respiratory Rate 18 13 13 Blood Pressure 199/105 H Blood Pressure [Left Arm] 199/105 H 171/81 H Pulse Oximetry 100 100 100 11/06/18 00:04 11/06/18 00:38 Temperature Pulse Rate 57 L 64 Respiratory Rate 9 L 9 L Blood Pressure Blood Pressure [Left Arm] 169/81 H 170/82 H Pulse Oximetry 100 100 MDM - Weakness Lab Data Result diagrams: 11/05/18 23:40 11/05/18 23:40 Lab Results 11/05/18 11/05/18 Range/Units 23:40 23:40 WBC 8.2 (4.5-11.0) X10^3/uL RBC 4.59 (4.5-5.9) X10^6/uL Hgb 14.3 (13.5-17.5) g/dL Hct 42.3 (41-53) % MCV 92.0 (80-100) fL MCH 31.0 (26-34) PG MCHC 33.7 (30-36) % RDW 14.8 (11.6-14.8) % Plt Count 198 (150-400) X10^3/uL Neut % (Auto) 69.6 (50-75) % Lymph % (Auto) 24.1 L (25-40) % [place] % (Auto) 5.0 (3-14) % Eos % (Auto) 0.7 L (2-4) % Baso % (Auto) 0.6 (0-2) % Neut # (Auto) 5700 (9373-5451) /uL Lymph # (Auto) 2000 (1122-8407) /uL [place] # (Auto) 400 (0-900) /uL Eos # (Auto) 100 (0-450) /uL Baso # (Auto) 0 (0-100) /uL Platelet Estimate Adequate on smear Clumped Platelets RBC Morphology Normal morphology Sodium 144 (137-145) mmol/L Potassium 3.6 (3.4-5.1) mmol/L Chloride 106 (98-107) mmol/L Carbon Dioxide 28 (22-32) mmol/L BUN 25 H (9-20) mg/dL Creatinine 0.80 (0.66-1.25) mg/dL Estimated GFR > 60.0 (>60) mL/min BUN/Creatinine Ratio 31.3 H (6-22) Glucose 87 (80-110) mg/dL Calcium 9.1 (8.4-10.2) mg/dL Total Bilirubin 0.2 (0.2-1.3) mg/dL AST 23 (17-59) IU/L ALT 19 L (21-72) IU/L Alkaline Phosphatase 267 H (38-126) U/L Total Protein 8.0 (6.3-8.2) g/dL Albumin 4.5 (3.5-5.0) g/dL Globulin 3.5 (1.7-4.1) g/dL Albumin/Globulin Ratio 1.3 (1.0-2.8) Point of Care Testing Stool Occult Blood Positive MDM Narrative Medical decision making narrative: 73-year-old male with extensive medical history including recent stroke in August presents with weakness and fatigue, no oral intake for the past few days and the passage of dark stools. He is on Plavix and has no history of alcohol abuse, varices or bleeding ulcers. Patient is hemodynamically stable with normal H&H. Patient needs hospitalization for evaluation of his gastrointestinal bleeding, trending H&H, likely endoscopy Discharge Plan Departure Patient Disposition: Admitted As Inpatient Clinical Impression: Acute upper gastrointestinal bleeding
--- NOTE | 2018-11-05 22:52 | ED_ITS ---
HPI - Weakness General Chief complaint: Weakness Stated complaint: lethargic, not responding well Time Seen by Provider: 11/05/18 22:34 Source: patient and family Mode of arrival: wheelchair Limitations: no limitations History of Present Illness HPI Narrative: 73-year-old male nonsmoker with extensive medical history including stroke with residual left-sided paresis, renal failure, seizures, and malnutrition presents with and other family in a wheelchair and a chief complaint of increasing generalized weakness over the past few days worsening over the day. states that he has passed some dark stool in that time frame. Patient has not had any fever chills nor nausea or vomiting. He has not had much to eat or drink in the past few days, admittedly because he has poor appetite. He does not have a history of alcohol abuse, liver failure or known esophageal varices but has had gastrointestinal bleeding in the past. Family are poor historians. Patient is on Plavix and was admitted in August for stroke, he had been at a local rehab until about 2 or 3 weeks ago. He has had no coffee-ground emesis nor bright red blood in his stool. Patient required significant help getting from the wheelchair to his bed MD Complaint: generalized weakness, lack of energy and difficulty walking Onset (ago): day(s) Duration: constant Location: generalized Associated symptoms: dark stools and loss of appetite Related Data Home Medications Medication Instructions Recorded Confirmed omeprazole 20 mg PO QDAY #0 11/13/16 09/02/18 Disabled Parking Permit 1 ea MISCELLANEOUS DIRECTED 12/25/17 09/02/18 felodipine 1 tab PO DAILY 12/25/17 09/02/18 ferrous sulfate 1 tab PO DAILY 12/25/17 09/02/18 fluoxetine 10 mg PO DAILY 12/25/17 09/02/18 levetiracetam 500 mg PO BID 12/25/17 09/02/18 lisinopril 20 mg PO DAILY 12/25/17 09/02/18 loratadine 10 mg PO QDAY 12/25/17 09/02/18 mirtazapine 30 mg PO HS 12/25/17 09/02/18 phenytoin sodium extended 1 cap PO BID 12/25/17 09/02/18 Previous Rx's Medication Instructions Recorded atorvastatin [Lipitor] 80 mg PO BEDTIME #30 tab 09/05/18 clopidogrel 75 mg PO DAILY #30 tab 09/05/18 Allergies Allergy/AdvReac Type Severity Reaction Status Date / Time vancomycin [VANCOMYCIN] Allergy Unknown VANCO Verified 12/26/17 08:35 ALLERGY ON SNF FACE SHEET Review of Systems Constitutional Denies chills, Denies fever(s), Reports lethargy, Reports malaise, Reports poor appetite and Reports weakness Eyes Denies change in vision, Denies eye discharge, Denies irritation and Denies loss of vision ENT Ears, Nose, Mouth, and Throat: Denies change in voice, Denies neck pain and Denies sore throat Cardiovascular Denies chest pain, Denies irregular heart rhythm, Denies lightheadedness, Denies palpitations, Denies dyspnea, Denies dyspnea on exertion and Denies orthopnea Respiratory Denies cough, Denies dyspnea, Denies dyspnea on exertion and Denies wheezing Gastrointestinal Gastrointestinal: Denies abdominal pain, Reports change in bowel habits, Denies diarrhea, Denies nausea and Denies vomiting Genitourinary Denies hematuria, Denies flank pain, Denies urinary incontinence and Denies urinary urgency Musculoskeletal Denies neck pain Integumentary/Breasts Denies pruritus, Denies erythema, Denies rash and Denies wounds Neurologic Denies confusion, Denies loss of vision and Reports weakness Psychiatric Denies anxiety, Denies confusion, Denies depression, Denies homicidal ideation and Denies suicidal ideation Endocrine Denies palpitations Hematologic/Lymphatic Denies easy bruising Allergic/Immunologic Denies wheezing [facility] Social History household members: spouse and children Smoking Status: Never smoker alcohol intake: never Exam Narrative Exam Narrative: GENERAL: 73-year-old male appears stated age, malnourished and very weak, even for him. He is alert and responds appropriately. Requires significant help getting from wheelchair HEAD: Atraumatic. Normocephalic. No temporal or scalp tenderness. Temporal wasting EYES: No conjunctival pallor Pupils equal round and reactive. Extraocular motions intact. No scleral icterus. No injection or drainage. ENT: Dry mucous membrane Nose without bleeding, purulent drainage or septal hematoma. Throat without erythema, tonsillar hypertrophy or exudate. Uvula midline. Airway patent. NECK: Trachea midline. No JVD or lymphadenopathy. Supple, nontender, no meningeal signs. CARDIOVASCULAR: Regular rate and rhythm without murmurs, gallops, or rubs. RESPIRATORY: Clear to auscultation. Breath sounds equal bilaterally. No wheezes, rales, or rhonchi. GASTROINTESTINAL: Abdomen soft, non-tender, nondistended. No hepato- splenomegaly, or palpable masses. No guarding. RECTAL: dark tarry stool, no BRBPR. Heme + EXTREMITIES: No clubbing, cyanosis, or edema. No joint tenderness, effusion, or edema noted. BACK: Nontender without deformity or crepitance. No flank tenderness. NEURO: alert. at his baseline SKIN: No rash or erythema. Poor turgor Initial Vital Signs Initial Vital Signs: Vital Signs Temperature 98.5 F 11/05/18 22:45 Pulse Rate 64 11/05/18 22:45 Respiratory Rate 18 11/05/18 22:45 Blood Pressure 199/105 H 11/05/18 22:45 Pulse Oximetry 100 11/05/18 22:45 Course Orders Ordered: ED Orders 11/05/18 22:45 EKG-12 Lead Stat 11/05/18 23:40 Complete Blood Count AUTO DIFF Stat Comprehensive Metabolic Panel Stat Discontinued Medications Ondansetron HCl (Zofran) 4 mg IV NOW ONE Stop: 11/05/18 22:45 Pantoprazole Sodium (Protonix) 80 mg IV NOW ONE Stop: 11/05/18 22:45 Last Admin: 11/05/18 22:54 Dose: 80 mg Consultations Consultation #1: call to Dr. Howell, happy to be consulted for likely scope tomorrow. Wants us to please keep patient NPO Consultation #2: hospitalist happy to accept Vital Signs - 8 hr 11/05/18 22:45 11/05/18 22:58 11/05/18 23:39 Temperature 98.5 F Pulse Rate 64 55 L 57 L Respiratory Rate 18 13 13 Blood Pressure 199/105 H Blood Pressure [Left Arm] 199/105 H 171/81 H Pulse Oximetry 100 100 100 11/06/18 00:04 11/06/18 00:38 Temperature Pulse Rate 57 L 64 Respiratory Rate 9 L 9 L Blood Pressure Blood Pressure [Left Arm] 169/81 H 170/82 H Pulse Oximetry 100 100 MDM - Weakness Lab Data Result diagrams: 11/05/18 23:40 11/05/18 23:40 Lab Results 11/05/18 11/05/18 Range/Units 23:40 23:40 WBC 8.2 (4.5-11.0) X10^3/uL RBC 4.59 (4.5-5.9) X10^6/uL Hgb 14.3 (13.5-17.5) g/dL Hct 42.3 (41-53) % MCV 92.0 (80-100) fL MCH 31.0 (26-34) PG MCHC 33.7 (30-36) % RDW 14.8 (11.6-14.8) % Plt Count 198 (150-400) X10^3/uL Neut % (Auto) 69.6 (50-75) % Lymph % (Auto) 24.1 L (25-40) % [place] % (Auto) 5.0 (3-14) % Eos % (Auto) 0.7 L (2-4) % Baso % (Auto) 0.6 (0-2) % Neut # (Auto) 5700 (9419-7285) /uL Lymph # (Auto) 2000 (9518-3488) /uL [place] # (Auto) 400 (0-900) /uL Eos # (Auto) 100 (0-450) /uL Baso # (Auto) 0 (0-100) /uL Platelet Estimate Adequate on smear Clumped Platelets RBC Morphology Normal morphology Sodium 144 (137-145) mmol/L Potassium 3.6 (3.4-5.1) mmol/L Chloride 106 (98-107) mmol/L Carbon Dioxide 28 (22-32) mmol/L BUN 25 H (9-20) mg/dL Creatinine 0.80 (0.66-1.25) mg/dL Estimated GFR > 60.0 (>60) mL/min BUN/Creatinine Ratio 31.3 H (6-22) Glucose 87 (80-110) mg/dL Calcium 9.1 (8.4-10.2) mg/dL Total Bilirubin 0.2 (0.2-1.3) mg/dL AST 23 (17-59) IU/L ALT 19 L (21-72) IU/L Alkaline Phosphatase 267 H (38-126) U/L Total Protein 8.0 (6.3-8.2) g/dL Albumin 4.5 (3.5-5.0) g/dL Globulin 3.5 (1.7-4.1) g/dL Albumin/Globulin Ratio 1.3 (1.0-2.8) Point of Care Testing Stool Occult Blood Positive MDM Narrative Medical decision making narrative: 73-year-old male with extensive medical h istory including recent stroke in August presents with weakness and fatigue, no oral intake for the past few days and the passage of dark stools. He is on Plavix and has no history of alcohol abuse, varices or bleeding ulcers. Patient is hemodynamically stable with normal H&H. Patient needs hospitalization for evaluation of his gastrointestinal bleeding, trending H&H, likely endoscopy Discharge Plan Departure Patient Disposition: Admitted As Inpatient Clinical Impression: Acute upper gastrointestinal bleeding
[2018-11-05] MEDS: PANTOPRAZOLE 40 MG VIAL 80 MG IV (22:54)
[2018-11-05 22:58] VITALS: BP 199/105; PULSE 55; RESP 13; O2SAT 100
[2018-11-05 23:39] VITALS: BP 171/81; PULSE 57; RESP 13; O2SAT 100
[2018-11-06] VITALS (21 sets, daily range): BP systolic 108–199; BP diastolic 59–97; PULSE 52–75; RESP 9–20; TEMP 36.2–37.7; O2SAT 94–100; BMI 16.9
--- NOTE | 2018-11-06 | PATH_ITS ---
[facility] Accession Number: [id number] . 01 Material submitted: . PART A: gastrointestinal site - BIOPSY FUNDUS OF STOMACH PART B: gastrointestinal site - BIOPSY ANTRUM STOMACH . 02 Diagnosis: A. Stomach, Fundus, Biopsy: Body-type mucosa with mild chronic inflammation and intestinal metaplasia. Negative for Helicobacter by immunohistochemistry. Negative for dysplasia and malignancy. . B. Stomach, Antrum, Biopsy: Antral mucosa with intestinal metaplasia. Negative for Helicobacter by immunohistochemistry. Negative for dysplasia and malignancy. [facility]/11/08/2018 . 02 Electronically signed: . Caty Chavez MD, Pathologist NPI- [id number] . 01 Gross description: . Part A: BIOPSY FUNDUS OF STOMACH: Received in formalin is 1 fragment(s) of zapata, soft tissue measuring 0.3 x 0.2 x 0.2 cm which is entirely submitted and submitted entirely in 1 cassette(s) Part B: BIOPSY ANTRUM STOMACH: Received in formalin is 1 fragment(s) of zapata, soft tissue measuring 0.2 x 0.2 x 0.2 cm which is entirely submitted and submitted entirely in 1 cassette(s) /[facility] /[facility] . 02 Microscopic: . A. An immunohistochemical stain was performed on block A in order to evaluate for Helicobacter organisms and is negative. The control stain showed appropriate reactivity. . B. An immunohistochemical stain was performed on block B in order to evaluate for Helicobacter organisms and is negative. The control stain showed appropriate reactivity. . * This test was developed and its performance characteristics determined by [facility]. It has not been cleared or approved by the U.S. Food and Drug Administration. The FDA has determined that such clearance or approval is not necessary. This test is used for clinical purposes. It should not be regarded as investigational or for research. . 02 Pathologist provided ICD-10: R10.9 . 02 CPT . 930526, 296842, M65981 Performed at: 01 [facility] [address] [id number] MD Mandeep Coates MD Phone: [phone] Performed at: [id number] [place], [place] [id number] MD Caty Chavez MD Phone: [phone]
[2018-11-06 00:03] LABS: Basophils Absolute Auto 0 /uL (0-100); Basophils Percent Auto 0.6 % (0-2); Eosinophils Absolute Auto 100 /uL (0-450); Eosinophils Percent Auto 0.7 % (2-4); Hematocrit 42.3 % (41-53); Hemoglobin 14.3 g/dL (13.5-17.5); Lymphocytes Absolute Auto 2000 /uL (1100-4500); Lymphocytes Percent Auto 24.1 % (25-40); Mean Corpuscular HGB Conc 33.7 % (30-36); Monocytes Absolute Auto 400 /uL (0-900); Neutrophils Absolute Auto 5700 /uL (1500-7000); Neutrophils Percent Auto 69.6 % (50-75); Platelet Count 198 X10^3/uL (150-400); Red Blood Cell Count 4.59 X10^6/uL (4.5-5.9); Red Cell Distribution Width 14.8 % (11.6-14.8); White Blood Cell Count 8.2 X10^3/uL (4.5-11.0)
[2018-11-06 00:06] LABS: Alanine Aminotransferase 19 IU/L (21-72); Albumin 4.5 g/dL (3.5-5.0); Albumin Globulin Ratio 1.3 (1.0-2.8); Alkaline Phosphatase 267 U/L (38-126); Aspartate Aminotransferase 23 IU/L (17-59); BUN Creatinine Ratio 31.3 (6-22); Bilirubin Total 0.2 mg/dL (0.2-1.3); Blood Urea Nitrogen 25 mg/dL (9-20); Calcium 9.1 mg/dL (8.4-10.2); Carbon Dioxide 28 mmol/L (22-32); Chloride 106 mmol/L (98-107); Estimated Glomerular Filt Rate > 60.0 mL/min (>60); Globulin 3.5 g/dL (1.7-4.1); Glucose 87 mg/dL (80-110); HEMOLYSIS 25 (0-50); Potassium 3.6 mmol/L (3.4-5.1); Sodium 144 mmol/L (137-145)
[2018-11-06 00:14] LABS: Add Manual Diff / Slide Review SLIDE REVIEW
[2018-11-06 00:16] LABS: Platelet Estimate Adequate on smear; RBC Morphology Normal Morphology
--- NOTE | 2018-11-06 01:33 | P.HP_ITS ---
History of Present Illness Date Patient Seen: 11/06/18 Time Patient Seen: 01:31 Chief complaint: lethargic, not responding well Narrative: Patient is a poor historian, questionable accuracy of data provided. HPI is obtained via direct interview with the patient, a phone call to patient's spouse (surrogate decision maker), and review of records. 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 Patient presented to the ED out of concern for generalized weakness and lethargy. Per record symptoms noted on 11/03/2018, progressively worsening. Associated symptoms include diminished appetite and black stools. Stools guiac positive in ED. No reported nausea or vomiting. Patient's is not entirely clear if there was abdominal discomfort; however, she does note significant firmness of the abdomen. She did comment that patient was grunting, which is unusual for him; however, there were no direct complains of abdominal discomfort. Patient has had some weight loss over the past 2-3 months, family and patient unable to quantify. Last BM on 11/05/2018. No hematemesis, hemoptysis, or hematochezia. Patient is on ASA 81 mg daily. Family and patient both of denies use of NSAIDs or any other anticoagulation. ED presentation & work-up T 98.5? BP 199/105 HR 64 RR 18 SpO2 100% (room air) GCS 14 (11/05 @ 2245) Labs, 11/05 @ 2340 WBC 8.2 HGB 14.3 HCT 42.3 PLT 198 NA 144 K 3.6 CL 106 CA 9.1 ALB 4.5 GLU 87 CO2 28 BUN 25 CR 0.8 BUN/CR 31.3 AST 23 ALT 19 ALK PHOS 267 TBili 0.2 In ED received protonix 80 mg IV x1 Patient History Medical History (Updated 11/06/18 @ 03:45 by LATISHA Cox) CVA, old, alterations of sensations (Acute) Hypertension (Acute) Iron deficiency anemia (Acute) Seizure disorder (Acute) History of small bowel obstruction (Chronic) Surgical History (Updated 11/06/18 @ 03:44 by LATISHA Cox) History of appendectomy (Chronic) History of bowel resection (Chronic) History of colonoscopy with polypectomy (Chronic) Family History Father Cancer Social History household members: spouse and children Smoking Status: Never smoker alcohol intake: never Family & Social History Family History Father Cancer Social History: household members spouse,children Safety & Behavioral: Feels Safe in Current Yes Environment Tobacco & Substance use: Smoking Status Former history of significant tobacco dependence alcohol intake Former history of significant EtOH use Substance Use Type does not use Meds Home Medications Medication Instructions Recorded Confirmed Type omeprazole 20 mg PO QDAY #0 11/13/16 09/02/18 History Disabled Parking Permit 1 ea MISCELLANEOUS DIRECTED 12/25/17 09/02/18 History felodipine 1 tab PO DAILY 12/25/17 09/02/18 History ferrous sulfate 1 tab PO DAILY 12/25/17 09/02/18 History fluoxetine 10 mg PO DAILY 12/25/17 09/02/18 History levetiracetam 500 mg PO BID 12/25/17 09/02/18 History lisinopril 20 mg PO DAILY 12/25/17 09/02/18 History loratadine 10 mg PO QDAY 12/25/17 09/02/18 History mirtazapine 30 mg PO HS 12/25/17 09/02/18 History phenytoin sodium extended 1 cap PO BID 12/25/17 09/02/18 History atorvastatin [Lipitor] 80 mg PO BEDTIME #30 tab 09/05/18 Rx clopidogrel 75 mg PO DAILY #30 tab 09/05/18 Rx Allergies Allergy/AdvReac Type Severity Reaction Status Date / Time vancomycin [VANCOMYCIN] Allergy Unknown VANCO Verified 12/26/17 08:35 ALLERGY ON SNF FACE SHEET Review of Systems Review of Systems All systems reviewed & are unremarkable except as noted in HPI and below Exam Vital Signs (past 8 hours): - 11/05/18 22:45 11/05/18 22:58 11/05/18 23:39 Temperature 98.5 F Pulse Rate 64 55 L 57 L Respiratory Rate 18 13 13 Blood Pressure 199/105 H Blood Pressure [Left Arm] 199/105 H 171/81 H Pulse Oximetry 100 100 100 11/06/18 00:04 11/06/18 00:38 11/06/18 01:00 Temperature Pulse Rate 57 L 64 57 L Respiratory Rate 9 L 9 L 14 Blood Pressure Blood Pressure [Left Arm] 169/81 H 170/82 H 184/81 H Pulse Oximetry 100 100 99 Oxygen Delivery Method Room Air Narrative Exam Narrative: Constitutional: somnolent, having hard time staying away to partake in HPI and exam frail in appearance BMI 16.9, malnourished, diminished muscle mass and subcutaneous fat, apparent ammonia odor Neurologic: somnolent, awakens with tactile stimuli; oriented to self, place, and year; unable to note reason for hospital admission follows simple commands; left upper extremity weakness; b/l lower extremity weakness speech is slurred Head: NC, AT Eyes: pupils equal, round, and reactive; EOMI Ears: external ears normal, no otorrhea Nose: external nose normal, no epistaxis Throat: dry MM, oropharynx w/o exudate Neck: no masses, lymphadenopathy, or JVD Chest / Respiratory: equal chest rise, unlabored respiratory effort, no dyspnea or tachypnea, breath sounds diminished, on room air Heart / CV: S1S2, no murmur Abdomen / GI: firm, tender in 3 of 4 quadrants (RUQ, RLQ, and LUQ) w/ palpation, hyperactive bowel sounds : no suprapubic tenderness Peripheral / Vascular: warm to touch, DP and PT pulses diminished but palpable, no peripheral edema Musc: Diminished ROM of LUE and BLE; generalized weakness with additional left upper extremity weakness Diminished muscle tone, b/l lower extremity foot drop Skin: Dry, no ecchymosis, no open lesions; diminished turgor Objective Labs Result Diagrams: 11/06/18 06:33 11/06/18 06:33 Labs: Laboratory Results - last 24 hr 11/05/18 11/05/18 23:40 23:40 WBC 8.2 RBC 4.59 Hgb 14.3 Hct 42.3 MCV 92.0 MCH 31.0 MCHC 33.7 RDW 14.8 Plt Count 198 Neut % (Auto) 69.6 Lymph % (Auto) 24.1 L [place] % (Auto) 5.0 Eos % (Auto) 0.7 L Baso % (Auto) 0.6 Neut # (Auto) 5700 Lymph # (Auto) 2000 [place] # (Auto) 400 Eos # (Auto) 100 Baso # (Auto) 0 Platelet Estimate Adequate on smear Clumped Platelets RBC Morphology Normal morphology Sodium 144 Potassium 3.6 Chloride 106 Carbon Dioxide 28 BUN 25 H Creatinine 0.80 Estimated GFR > 60.0 BUN/Creatinine Ratio 31.3 H Glucose 87 Calcium 9.1 Total Bilirubin 0.2 AST 23 ALT 19 L Alkaline Phosphatase 267 H Total Protein 8.0 Albumin 4.5 Globulin 3.5 Albumin/Globulin Ratio 1.3 Assessment & Plan Assessment & Plan narrative: Patient is being admitted for an acute upper GI bleed. Upper GI Bleed, suspected, acute, present on admission, active - Consult GI, re: GIB. Per communication with the ED, Dr. Mccullough, GI has been notified - NPO status, Glu POC Q6H while NPO - Telemetry at least for 24 hours - Continuous pulse oximetry; supplemental O2, as needed, to keep SpO2 > 92% - Vascular access to place PICC line - IVF, NS @ 100 ml/hr - STAT acute abdominal series, re: acute abdominal pain, distention, h/o recurrent SBO - Received Protonix 80 mg IV bolus in the ED, continue on protonix gtt - EKG, if not done in ED re: baseline, suspected GIB, hypertensive urgency - STAT lactate. AM Labs, timed for 6 am, CBC, CMP, Mg, Coags, T&S lactate result reviewed, 0.8 WNL Abdominal pain, acute, present on admission, active - STAT lactate - STAT acute abdominal series Metabolic encephalopathy, acute, present on admission, active Potentially in the setting of dehydration. qSofa score 1 (GCS 14). No leukocytosis, no SIRS, no overt evidence of acute organ failure (w/ exception of somnolence, decreased responsiveness) - Monitor closely, neuro checks Q4H Hypertensive urgency, acute, present on admission Underlying history of hypertension. 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 Appears only to be taking lisinopril. At present time patient is somnolent. Bradycardia on tele monitor, not ideal candidate for BB. - Trend BP - Hold oral antihypertensive agents in the setting of altered mental status / somnolence. Remote and recent h/o CVA. - Enalapril 0.625 mg IV Q6H - Hydralazine 10 mg IV Q6H prn for SBP > 180 mmHg Dehydration, acute, present on admission, active In the setting of diminished food and fluid intake - IVF History of CVA with residual deficits (left sided weakness, aphasia, and dysphasia), chronic condition, present on admission Patient had a remote stroke with left-sided weakness, aphasia and dysphagia. In the past 3 months he has suffered another stroke for which he was rehabilitated at the [facility]. Patient was discharged home 2-3 weeks ago. On ASA 81 mg daily. It is not clear if he is on clopidogrel. - Consult Speech, re: swallow evaluation before allowing p.o. intake and pills - Hold ASA 81 mg. Clarify in am w/ patient's pharmacy is takes clopidogrel. 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 b.i.d. - Seizure precautions - Keppra 500 mg IV b.i.d. (changed formulation to IV while NPO and until cleared by speech / passed swallow evaluation) Patient is a DNR. Proxy decision maker is his . Home medications reviewed, patient unable to confirm and also likes clarity. Will need to verify with patient's pharmacy in a.m. SCDs for VTE prophylaxis Patient's is a Nondenominational. Patient is not. Patient has received blood transfusions in the past, if need arises. This was also discussed with patient's and she is okay to pursue blood transfusions if there is any need.
--- NOTE | 2018-11-06 02:48 | DI.RAD.S_ITS ---
PROCEDURE: XR ACUTE ABDOMEN SERIES INDICATIONS: abdominal pain TECHNIQUE: One view chest and two views of the abdomen were acquired. COMPARISON: [facility], ABDOMEN ACUTE SERIES, 03/21/2017, 5:57. [facility], ABDOMEN ACUTE SERIES, 10/25/2016, 7:00. FINDINGS: Surgical changes and devices: None. Chest: Lungs are clear. Heart size is normal. No pleural effusions. No pneumoperitoneum. Abdomen: Bowel gas pattern is normal. No suspicious calcifications. Visualized solid organ contours appear normal. Bones: No suspicious bony lesions. IMPRESSION: Normal for age, source of current abdominal pain symptoms is not seen. Dictated by: Jason Huitron M.D. on 11/06/2018 at 8:35 Approved by: Jason Huitron M.D. on 11/06/2018 at 8:37
[2018-11-06 03:43] LABS: Prothrombin Time 11.7 SECONDS (10.1-12.7)
[2018-11-06 03:45] LABS: PTT Partial Thromboplastin Tim 36 SECONDS (26.4-36.2)
[2018-11-06 03:46] LABS: Lactate (Lactic Acid) 0.8 mmol/L (0.7-2.1)
--- NOTE | 2018-11-06 04:23 | PC.NURSE ---
Pt brought to floor at approx. 0130. Pt was accompanied by family. Pt alert and answers appropriately but is lethargic and falls asleep easily. Pt has hx of prior stroke so answers are mildly delayed. Pt denies pain at this time. Denies SOB. Lung sounds clear/diminished. Regular heart sounds, rate, and rhythm. Pt and family are were not able to verify or give an accurate current medication list but said she will bring in an updated list later today. Wifes name is Fariba and pt said it is okay to give her information and updates on care her number is [phone]. Family went home for the night. Pt is resting comfortably in bed at this time.
[2018-11-06] MEDS: PANTOPRAZOLE 80 MG in SODIUM CHLORIDE 0.9% 100 ML 10 ML IV (05:35)
[2018-11-06] MEDS: SODIUM CHLORIDE 0.9% 1,000 ML 100 ML IV ×2 (05:35→15:58)
[2018-11-06] MEDS: ENALAPRILAT 1.25 MG/ML VIAL 0.625 MG IV ×3 (06:30→17:27)
[2018-11-06 06:44] LABS: Add Manual Diff / Slide Review NO; Basophils Absolute Auto 100 /uL (0-100); Basophils Percent Auto 1.1 % (0-2); Eosinophils Absolute Auto 100 /uL (0-450); Eosinophils Percent Auto 1.8 % (2-4); Hematocrit 37.2 % (41-53); Hemoglobin 12.5 g/dL (13.5-17.5); Lymphocytes Absolute Auto 2100 /uL (1100-4500); Lymphocytes Percent Auto 37.8 % (25-40); Mean Corpuscular HGB Conc 33.6 % (30-36); Mean Corpuscular Volume 92.2 fL (80-100); Monocytes Absolute Auto 300 /uL (0-900); Monocytes Percent Auto 5.6 % (3-14); Neutrophils Absolute Auto 3000 /uL (1500-7000); Neutrophils Percent Auto 53.7 % (50-75); Platelet Count 200 X10^3/uL (150-400); Red Blood Cell Count 4.04 X10^6/uL (4.5-5.9); Red Cell Distribution Width 14.7 % (11.6-14.8); White Blood Cell Count 5.6 X10^3/uL (4.5-11.0)
[2018-11-06 06:55] LABS: Alanine Aminotransferase 22 IU/L (21-72); Albumin Globulin Ratio 1.3 (1.0-2.8); Alkaline Phosphatase 218 U/L (38-126); Aspartate Aminotransferase 26 IU/L (17-59); BUN Creatinine Ratio 28.8 (6-22); Bilirubin Total 0.5 mg/dL (0.2-1.3); Blood Urea Nitrogen 23 mg/dL (9-20); Carbon Dioxide 28 mmol/L (22-32); Chloride 107 mmol/L (98-107); Estimated Glomerular Filt Rate > 60.0 mL/min (>60); Globulin 3.1 g/dL (1.7-4.1); Glucose 90 mg/dL (80-110); Magnesium 1.9 mg/dL (1.6-2.3); Sodium 143 mmol/L (137-145); Total Protein 7.1 g/dL (6.3-8.2)
[2018-11-06 06:58] LABS: HEMOLYSIS 116 (0-50)
[2018-11-06 06:59] LABS: Potassium 4.4 mmol/L (3.4-5.1)
[2018-11-06] MEDS: levETIRAcetam 500 MG in SODIUM CHLORIDE 0.9% 100 ML 420 ML IV (08:49)
[2018-11-06] MEDS: HYDRALAZINE 20 MG/ML VIAL 10 MG IV (08:49)
--- NOTE | 2018-11-06 09:54 | PM.CN ---
History of Present Illness Date Patient Seen: 11/06/18 Time Patient Seen: 09:54 Chief complaint: lethargic, not responding well Narrative: 73-year-old white male with history of CVA and microvascular cerebral disease seizure disorder history of alcoholism comes in with melena with no abdominal pain. Hemoglobin in the emergency room was 14. This morning is 12.5. He has no hematemesis. And again no abdominal pain. Does have a history of prior alcoholism. No known varices. Patient has been on Plavix. [facility] Medical History CVA, old, alterations of sensations (Acute) Hypertension (Acute) Iron deficiency anemia (Acute) Seizure disorder (Acute) History of small bowel obstruction (Chronic) Surgical History History of appendectomy (Chronic) History of bowel resection (Chronic) History of colonoscopy with polypectomy (Chronic) Family History Father Cancer Social History household members: spouse and children Smoking Status: Never smoker alcohol intake: never Family History Father Cancer Social History household members: spouse and children Smoking Status: Never smoker alcohol intake: never Meds Home Medications Medication Instructions Recorded Confirmed Type omeprazole 20 mg PO QDAY #0 11/13/16 09/02/18 History Disabled Parking Permit 1 ea MISCELLANEOUS DIRECTED 12/25/17 09/02/18 History felodipine 1 tab PO DAILY 12/25/17 09/02/18 History ferrous sulfate 1 tab PO DAILY 12/25/17 09/02/18 History fluoxetine 10 mg PO DAILY 12/25/17 09/02/18 History levetiracetam 500 mg PO BID 12/25/17 09/02/18 History lisinopril 20 mg PO DAILY 12/25/17 09/02/18 History loratadine 10 mg PO QDAY 12/25/17 09/02/18 History mirtazapine 30 mg PO HS 12/25/17 09/02/18 History phenytoin sodium extended 1 cap PO BID 12/25/17 09/02/18 History atorvastatin [Lipitor] 80 mg PO BEDTIME #30 tab 09/05/18 Rx clopidogrel 75 mg PO DAILY #30 tab 09/05/18 Rx Allergies Allergy/AdvReac Type Severity Reaction Status Date / Time vancomycin [VANCOMYCIN] Allergy Unknown VANCO Verified 12/26/17 08:35 ALLERGY ON SNF FACE SHEET Exam Vital Signs (past 8 hours): - 11/06/18 05:47 11/06/18 08:30 Temperature 98.4 F 98.5 F Pulse Rate 54 L 54 L Respiratory Rate 15 16 Blood Pressure 191/81 H 199/79 H Pulse Oximetry 96 100 Oxygen Delivery Method Room Air Narrative Exam Narrative: Patient is alert responsive a very poor historian. He seems to understand the conversation that we are having. Vital signs are stable. Lungs with distant breath sounds no rales or wheezes Heart regular rhythm Abdomen is soft and nontender is a well-healed midline incision. No hernias are obvious. Patient is rather cachectic in appearance. Patient seems to have some right-sided weakness however is moving all 4 extremities. Objective Labs Result Diagrams: 11/06/18 06:33 11/06/18 06:33 Labs: Laboratory Results - last 24 hr 11/05/18 11/05/18 11/06/18 23:40 23:40 03:20 WBC 8.2 RBC 4.59 Hgb 14.3 Hct 42.3 MCV 92.0 MCH 31.0 MCHC 33.7 RDW 14.8 Plt Count 198 Neut % (Auto) 69.6 Lymph % (Auto) 24.1 L [place] % (Auto) 5.0 Eos % (Auto) 0.7 L Baso % (Auto) 0.6 Neut # (Auto) 5700 Lymph # (Auto) 2000 [place] # (Auto) 400 Eos # (Auto) 100 Baso # (Auto) 0 Platelet Estimate Adequate on smear Clumped Platelets RBC Morphology Normal morphology PT 11.7 INR 1.0 APTT 36 D Sodium 144 Potassium 3.6 Chloride 106 Carbon Dioxide 28 BUN 25 H Creatinine 0.80 Estimated GFR > 60.0 BUN/Creatinine Ratio 31.3 H Glucose 87 Lactate Calcium 9.1 Magnesium Total Bilirubin 0.2 AST 23 ALT 19 L Alkaline Phosphatase 267 H Total Protein 8.0 Albumin 4.5 Globulin 3.5 Albumin/Globulin Ratio 1.3 Blood Type Antibody Screen 11/06/18 11/06/18 11/06/18 03:20 03:20 06:33 WBC 5.6 RBC 4.04 L Hgb 12.5 L Hct 37.2 L MCV 92.2 MCH 31.0 MCHC 33.6 RDW 14.7 Plt Count 200 Neut % (Auto) 53.7 Lymph % (Auto) 37.8 [place] % (Auto) 5.6 Eos % (Auto) 1.8 L Baso % (Auto) 1.1 Neut # (Auto) 3000 Lymph # (Auto) 2100 [place] # (Auto) 300 Eos # (Auto) 100 Baso # (Auto) 100 Platelet Estimate Clumped Platelets RBC Morphology PT INR APTT Sodium Potassium Chloride Carbon Dioxide BUN Creatinine Estimated GFR BUN/Creatinine Ratio Glucose Lactate 0.8 Calcium Magnesium Total Bilirubin AST ALT Alkaline Phosphatase Total Protein Albumin Globulin Albumin/Globulin Ratio Blood Type O Positive Antibody Screen Negative 11/06/18 06:33 WBC RBC Hgb Hct MCV MCH MCHC RDW Plt Count Neut % (Auto) Lymph % (Auto) [place] % (Auto) Eos % (Auto) Baso % (Auto) Neut # (Auto) Lymph # (Auto) [place] # (Auto) Eos # (Auto) Baso # (Auto) Platelet Estimate Clumped Platelets RBC Morphology PT INR APTT Sodium 143 Potassium 4.4 Chloride 107 Carbon Dioxide 28 BUN 23 H Creatinine 0.80 Estimated GFR > 60.0 BUN/Creatinine Ratio 28.8 H Glucose 90 Lactate Calcium 9.0 Magnesium 1.9 Total Bilirubin 0.5 AST 26 ALT 22 Alkaline Phosphatase 218 H Total Protein 7.1 Albumin 4.0 Globulin 3.1 Albumin/Globulin Ratio 1.3 Blood Type Antibody Screen Assessment & Plan Assessment & Plan narrative: I suspect the patient has some upper GI bleeding which is minimal at this point. This may be related to his Plavix therapy. Patient is on PPI therapy and the Plavix is stopped. We will do an EGD today to determine the source of his melena and GI bleed. Patient does seemed understand the plan and agrees.
--- NOTE | 2018-11-06 09:59 | P.CONS_ITS ---
History of Present Illness Date Patient Seen: 11/06/18 Time Patient Seen: 09:54 Chief complaint: lethargic, not responding well Narrative: 73-year-old white male with history of CVA and microvascular cerebral disease seizure disorder history of alcoholism comes in with melena with no abdominal pain. Hemoglobin in the emergency room was 14. This morning is 12.5. He has no hematemesis. And again no abdominal pain. Does have a history of prior alcoholism. No known varices. Patient has been on Plavix. [facility] Medical History CVA, old, alterations of sensations (Acute) Hypertension (Acute) Iron deficiency anemia (Acute) Seizure disorder (Acute) History of small bowel obstruction (Chronic) Surgical History History of appendectomy (Chronic) History of bowel resection (Chronic) History of colonoscopy with polypectomy (Chronic) Family History Father Cancer Social History household members: spouse and children Smoking Status: Never smoker alcohol intake: never Family History Father Cancer Social History household members: spouse and children Smoking Status: Never smoker alcohol intake: never Meds Home Medications Medication Instructions Recorded Confirmed Type omeprazole 20 mg PO QDAY #0 11/13/16 09/02/18 History Disabled Parking Permit 1 ea MISCELLANEOUS DIRECTED 12/25/17 09/02/18 History felodipine 1 tab PO DAILY 12/25/17 09/02/18 History ferrous sulfate 1 tab PO DAILY 12/25/17 09/02/18 History fluoxetine 10 mg PO DAILY 12/25/17 09/02/18 History levetiracetam 500 mg PO BID 12/25/17 09/02/18 History lisinopril 20 mg PO DAILY 12/25/17 09/02/18 History loratadine 10 mg PO QDAY 12/25/17 09/02/18 History mirtazapine 30 mg PO HS 12/25/17 09/02/18 History phenytoin sodium extended 1 cap PO BID 12/25/17 09/02/18 History atorvastatin [Lipitor] 80 mg PO BEDTIME #30 tab 09/05/18 Rx clopidogrel 75 mg PO DAILY #30 tab 09/05/18 Rx Allergies Allergy/AdvReac Type Severity Reaction Status Date / Time vancomycin [VANCOMYCIN] Allergy Unknown VANCO Verified 12/26/17 08:35 ALLERGY ON SNF FACE SHEET Exam Vital Signs (past 8 hours): - 11/06/18 05:47 11/06/18 08:30 Temperature 98.4 F 98.5 F Pulse Rate 54 L 54 L Respiratory Rate 15 16 Blood Pressure 191/81 H 199/79 H Pulse Oximetry 96 100 Oxygen Delivery Method Room Air Narrative Exam Narrative: Patient is alert responsive a very poor historian. He seems to understand the conversation that we are having. Vital signs are stable. Lungs with distant breath sounds no rales or wheezes Heart regular rhythm Abdomen is soft and nontender is a well-healed midline incision. No hernias are obvious. Patient is rather cachectic in appearance. Patient seems to have some right-sided weakness however is moving all 4 extremities. Objective Labs Result Diagrams: 11/06/18 06:33 11/06/18 06:33 Labs: Laboratory Results - last 24 hr 11/05/18 11/05/18 11/06/18 23:40 23:40 03:20 WBC 8.2 RBC 4.59 Hgb 14.3 Hct 42.3 MCV 92.0 MCH 31.0 MCHC 33.7 RDW 14.8 Plt Count 198 Neut % (Auto) 69.6 Lymph % (Auto) 24.1 L [place] % (Auto) 5.0 Eos % (Auto) 0.7 L Baso % (Auto) 0.6 Neut # (Auto) 5700 Lymph # (Auto) 2000 [place] # (Auto) 400 Eos # (Auto) 100 Baso # (Auto) 0 Platelet Estimate Adequate on smear Clumped Platelets RBC Morphology Normal morphology PT 11.7 INR 1.0 APTT 36 D Sodium 144 Potassium 3.6 Chloride 106 Carbon Dioxide 28 BUN 25 H Creatinine 0.80 Estimated GFR > 60.0 BUN/Creatinine Ratio 31.3 H Glucose 87 Lactate Calcium 9.1 Magnesium Total Bilirubin 0.2 AST 23 ALT 19 L Alkaline Phosphatase 267 H Total Protein 8.0 Albumin 4.5 Globulin 3.5 Albumin/Globulin Ratio 1.3 Blood Type Antibody Screen 11/06/18 11/06/18 11/06/18 03:20 03:20 06:33 WBC 5.6 RBC 4.04 L Hgb 12.5 L Hct 37.2 L MCV 92.2 MCH 31.0 MCHC 33.6 RDW 14.7 Plt Count 200 Neut % (Auto) 53.7 Lymph % (Auto) 37.8 [place] % (Auto) 5.6 Eos % (Auto) 1.8 L Baso % (Auto) 1.1 Neut # (Auto) 3000 Lymph # (Auto) 2100 [place] # (Auto) 300 Eos # (Auto) 100 Baso # (Auto) 100 Platelet Estimate Clumped Platelets RBC Morphology PT INR APTT Sodium Potassium Chloride Carbon Dioxide BUN Creatinine Estimated GFR BUN/Creatinine Ratio Glucose Lactate 0.8 Calcium Magnesium Total Bilirubin AST ALT Alkaline Phosphatase Total Protein Albumin Globulin Albumin/Globulin Ratio Blood Type O Positive Antibody Screen Negative 11/06/18 06:33 WBC RBC Hgb Hct MCV MCH MCHC RDW Plt Count Neut % (Auto) Lymph % (Auto) [place] % (Auto) Eos % (Auto) Baso % (Auto) Neut # (Auto) Lymph # (Auto) [place] # (Auto) Eos # (Auto) Baso # (Auto) Platelet Estimate Clumped Platelets RBC Morphology PT INR APTT Sodium 143 Potassium 4.4 Chloride 107 Carbon Dioxide 28 BUN 23 H Creatinine 0.80 Estimated GFR > 60.0 BUN/Creatinine Ratio 28.8 H Glucose 90 Lactate Calcium 9.0 Magnesium 1.9 Total Bilirubin 0.5 AST 26 ALT 22 Alkaline Phosphatase 218 H Total Protein 7.1 Albumin 4.0 Globulin 3.1 Albumin/Globulin Ratio 1.3 Blood Type Antibody Screen Assessment & Plan Assessment & Plan narrative: I suspect the patient has some upper GI bleeding which is minimal at this point. This may be related to his Plavix therapy. Patient is on PPI therapy and the Plavix is stopped. We will do an EGD today to determine the source of his melena and GI bleed. Patient does seemed understand the plan and agrees.
--- NOTE | 2018-11-06 11:32 | ST.OPTN ---
Addendum entered and electronically signed by Mahendra Randhawa 11/06/18 11:34: this is an inpatient - note entered as outpatient in error Original Note: Care Team Visit Care Team Role Provider Type Moises Howell MD Other Providers Physician Address: [address] [place] [address], [id number] Family Provider Address: Phone: Fax: Benson Mccullough DO Emergency Provider Physician Address: [address] [place] [address], [facility] LATISHA Cox Admit Provider [employer] Principal Attending Provider Address: [address] [place] [address], [id number] Attempted to see pt for evaluation. Nursing notified this SOFTWARE RELEASE ENGINEER that pt is NPO awaiting an EGD later today. Will follow up tomorrow.
--- NOTE | 2018-11-06 11:35 | SLP.IPNOTE ---
Attempted to see pt for evaluation. pt scheduled for surgical procedure today and in NPO. Will follow up tomorrow.
--- NOTE | 2018-11-06 12:14 | SUR.HOLD ---
Dr Caballero aware of high bp, due enalapril given as ordered, VS after 195/81, 60 regular, NSR on moniter. Dr Caballero and Dr Johnson aware of CBG of 56, D5NS hung as instructed
--- NOTE | 2018-11-06 12:42 | PM.OP.ENDO ---
Operative Date/Time/Diagnoses Date of procedure: 11/06/18 Time of procedure: 12:43 Pre-op diagnosis: Upper GI bleed Post-op diagnosis: same Procedure & Clinicians Study performed: Esophagogastroduodenoscopy with gastric biopsies Same procedure as scheduled: Yes Surgeon: Moises Howell Procedure Notes SCOAP/Timeout: Was done Scope withdrawal time: 10 Sedation minutes: 15 Findings: gastritis Specimen(s): other (Gastric biopsies for histopathology and H pylori) Complications: none Impression: Gastric hemorrhage from hemorrhagic gastritis. This may be related to his Plavix therapy. Recommendations: No ASA/NSAIDS and Stop medication(s) (Plavix) Plan for aftercare: PPI and Carafate added Disposition: PACU
--- NOTE | 2018-11-06 13:11 | PC.NURSE ---
AM NOTE - easily awakens, smiles and says hello, speech is delayed, clear, oriented self, pt couldn't name location where am I at?, bp 199/79, h 58, given iv hydralazine this am, npo, Dr. Howell in and Nila from DI in to place picc, despite mult attempts, a picc line could not be inserted, a midline catheter was placed rue, there is 4cm outside the insertion into skin and 4cm in the vein, Nila flushed and catherine back and line is patent, flushed with heparin, pt can wiggle toes, refused the scd, incont smear dark, tarry stool this am, PACU arrived 1130 for EGD, we had taken a Q6 cbm and it was 56 now, PACU contacted and a d5 0.9NS was started, vitals taken and the iv enalapril was given to PACU nurse to administer.
[2018-11-06 13:21] LABS: Glucose 226 mg/dL (80-110)
--- NOTE | 2018-11-06 13:50 | CM.IDA ---
Initial DCP Assessment Note: Pt is a 73 yo male, resident of [place]. Pt admitted d/t suspected GI Bleed, confirmed now by EGD, pt w/ h/o CVA and seizure disorder. PCP: BIENVENIDO Devine Payer: Medicare/[employer] Reviewed chart. Pt was admitted here in August and DC to [facility] at that time. At baseline, pt ambulates w/walker and lives w/ spouse and family as support and assist as needed. Pt off the floor for his EGD, will attempt conversation w/spouse to understand pt's current baseline and goals for DC. Pt has been to [facility] multiple times. 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 Following closely for further assessment of DC needs and coordination of safe DCP. DEAN Mccann
--- NOTE | 2018-11-06 16:02 | PM.EVENT ---
Date Patient Seen: 11/06/18 Events reviewed patient seen and examined. He is awake and alert. He has no complaints of pain. He is tolerating his lunch without difficulty. Examination: Lungs: Clear to auscultation Cardiac exam: Regular rate rhythm normal S1-S2 Abdomen: Soft and nontender Impression upper GI bleed, secondary to gastritis Plan: Discontinue aspirin and Plavix
[2018-11-06] MEDS: SODIUM CHLORIDE 0.9% FLUSH 10 ML IV (18:04)
--- NOTE | 2018-11-06 20:50 | PC.NURSE ---
Pt mostly sleeping this shift unless staff intervene for care. Pt's iv fluids and protonix continuous infusion dc'd as per emar order. Pt taking full liquids well. Able to feed self with set up. Denies pain or nausea. BL calf scd's in place. Pt's spouse arrives this evening shift. Questions answered as appropriate. Seizure pads in place. No seizure activity this shift.
[2018-11-06] MEDS: levETIRAcetam 250 MG TABLET 500 MG PO (21:05)
[2018-11-06] MEDS: PHENYTOIN ER 100 MG CAPSULE PO (21:05)
[2018-11-07] VITALS (7 sets, daily range): BP systolic 127–176; BP diastolic 59–120; PULSE 60–66; RESP 16–18; TEMP 36.8–37.4; O2SAT 99–100
[2018-11-07] MEDS: ENALAPRILAT 1.25 MG/ML VIAL 0.625 MG IV ×3 (00:01→11:33)
[2018-11-07] MEDS: SODIUM CHLORIDE 0.9% FLUSH 10 ML IV ×3 (00:04→08:29)
--- NOTE | 2018-11-07 00:26 | PC.NURSE ---
Addendum entered by Terra Scott R.N. 11/07/18 05:40: BP currently 155/120; medicated with scheduled Enalapril. Denies pain. Up earlier to BSC which took walker and 2 assists due to weakness of left extremities/unsteadiness. SCD's remain on except for when up to BSC. Original Note: Patient know self, birthdate and where he is but does not answer other orientation questions appropriately; will keep stating the same word for every question asked. Flat affect. Breath sounds diminished but CTA with RA sat of 100%; on continuous pulse oximetry. HRR. Denies nausea. BT present and abdomen is soft. Is incontinent of both B&B. Needing help to reposition in bed as not turning himself. Denies pain. CBG = 86 so provided with snack. Wearing bilateral calf SCD's. HOB is elevated at 30 degrees (90 degrees when eating). No seizure activity, has seizure pads on bed. Fall risk score high at RN discretion and bed alarm is activated.
[2018-11-07] MEDS: PANTOPRAZOLE 40 MG TABLET PO (06:16)
[2018-11-07] MEDS: levETIRAcetam 250 MG TABLET 500 MG PO (08:28)
[2018-11-07] MEDS: FERROUS SULFATE 325 MG TABLET PO (08:28)
[2018-11-07] MEDS: PHENYTOIN ER 100 MG CAPSULE PO (08:28)
--- NOTE | 2018-11-07 09:26 | P.DS_ITS ---
History of Present Illness Date Patient Seen: 11/07/18 Chief complaint: lethargic, not responding well Narrative: ethargic, not responding well Narrative: Patient is a poor historian, questionable accuracy of data provided. HPI is obtained via direct interview with the patient, a phone call to patient's spouse (surrogate decision maker), and review of records. 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 Patient presented to the ED out of concern for generalized weakness and lethargy. Per record symptoms noted on 11/03/2018, progressively worsening. Associated symptoms include diminished appetite and black stools. Stools guiac positive in ED. No reported nausea or vomiting. Patient's is not entirely clear if there was abdominal discomfort; however, she does note significant firmness of the abdomen. She did comment that patient was grunting, which is unusual for him; however, there were no direct complains of abdominal discomfort. Patient has had some weight loss over the past 2-3 months, family a nd patient unable to quantify. Last BM on 11/05/2018. No hematemesis, hemoptysis, or hematochezia. Patient is on ASA 81 mg daily. Family and patient both of denies use of NSAIDs or any other anticoagulation. Discharge Providers Date of admission: 11/06/18 00:50 Discharge Date: 11/07/18 Consults: 11/06/18 02:08 Consult to Physician Routine Comment: Consulting Provider: Moises Howell Reason for consultation: GIB Has provider been notified: Yes 11/06/18 02:11 Consult to Dietitian, Adult Routine Comment: Reason For Exam: BMI 16.9, anorexia 11/06/18 04:19 Consult to Speech Therapy Evaluate & Treat Comment: swallow eval; h/o remote & recent CVA; malnourishe Physician Instructions: Evaluate and treat Discharge provider: Gila Miller MD Summary Discharge Diagnosis: 1. Upper GI bleed secondary to gastritis likely related to underlying aspirin and Plavix use 2. Hypertension 3. History of CVA 4. Hyperlipidemia 5. Seizure disorder 6. Iron deficiency anemia 7. Severe protein calorie malnutrition Hospital Course: The patient is a 73-year-old male well known to the hospitalist team who has a history of hypertension hyperlipidemia and stroke. The patient was admitted to the hospital for poor oral intake, generalized weakness, and lethargy. The patient was found to have guaiac-positive stool. By report from home he had decreased appetite and black stool. Patient underwent upper endoscopy which revealed the following findings: Gastric hemorrhage from hemorrhagic gastritis. This may be related to his Plavix therapy. Recommendations: No ASA/NSAIDS and Stop medication(s) (Plavix) Plan for aftercare: PPI and Carafate added Patient's diet was advanced, he was started on a PPI and Carafate. He was able to eat. The patient was more alert and awake. He was no longer lethargic. He denies any abdominal pain, no shortness of breath, and has no specific complaints. The patient was seen and evaluated today. He did not require a transfusion. As he was felt to be hemodynamically stable he was deemed appropriate for discharge home. Exam Vital Signs (past 8 hours): - 11/07/18 04:00 11/07/18 05:28 11/07/18 06:13 Temperature 99.3 F Pulse Rate 66 66 64 Respiratory Rate 18 Blood Pressure 168/97 H 155/120 H 146/85 H Pulse Oximetry 99 11/07/18 07:35 Temperature 98.8 F Pulse Rate 66 Respiratory Rate 16 Blood Pressure 127/82 Pulse Oximetry 100 Oxygen Delivery Method Room Air Oxygen Flow Rate 0 Narrative Exam Narrative: Ill appearing male in no obvious distress Lungs: Clear to auscultation Cardiac exam: Regular rate rhythm normal S1-S2 with a 2/6 systolic ejection Abdomen: Soft and nontender Extremities: No edema Neuro exam: Patient is awake alert and conversant. He does have a dense right hemiparesis Objective Labs Result Diagrams: 11/06/18 06:33 11/06/18 13:00 Labs: Laboratory Results - last 24 hr 11/06/18 13:00 Glucose 226 H D Discharge Plan Discharge Plan Discharge Problem: Acute upper gastrointestinal bleeding Patient Disposition: Home Discharge comment: Discontinue aspirin and Plavix Discharge Med Rec/Prescriptions Prescriptions: New sucralfate [Carafate] 100 mg/mL suspension 2 gram NH BID 30 Days Qty: 1200 RF: 0 Continued omeprazole 20 MG tablet,delayed release (DR/EC) 20 mg PO DAILY Qty: 0 RF: 0 loratadine 10 MG tablet 10 mg PO QDAY RF: 0 mirtazapine 30 MG tablet 30 mg PO BEDTIME RF: 0 levetiracetam 500 mg tablet 500 mg PO BID RF: 0 lisinopril 20 mg tablet 20 mg PO DAILY RF: 0 phenytoin sodium extended 100 mg capsule 100 mg PO BID RF: 0 fluoxetine 10 mg capsule 10 mg PO DAILY RF: 0 felodipine 10 mg tablet extended release 24 hr 1 tab PO DAILY RF: 0 ferrous sulfate 324 mg (65 mg iron) tablet,delayed release (DR/EC) 1 tab PO DAILY RF: 0 Disabled Parking Permit 1 ea miscellaneous DIRECTED RF: 0 atorvastatin [Lipitor] 20 mg Tablet 80 mg PO BEDTIME Qty: 30 RF: 0 Discontinued clopidogrel 75 mg Tablet 75 mg PO DAILY Qty: 30 RF: 0 Provider Discharge Instructions Diet: Diet as Tolerated and Low-sodium Activity: As tolerated Discharge Data Attending Provider: Santosh Sultana Admit Date/Time: 11/06/18 00:50
[2018-11-07 09:44] LABS: Add Manual Diff / Slide Review NO; Basophils Absolute Auto 0 /uL (0-100); Basophils Percent Auto 0.8 % (0-2); Eosinophils Absolute Auto 100 /uL (0-450); Eosinophils Percent Auto 2.2 % (2-4); Hematocrit 35.3 % (41-53); Hemoglobin 11.9 g/dL (13.5-17.5); Lymphocytes Absolute Auto 1900 /uL (1100-4500); Lymphocytes Percent Auto 33.5 % (25-40); Mean Corpuscular HGB Conc 33.7 % (30-36); Monocytes Absolute Auto 400 /uL (0-900); Monocytes Percent Auto 6.4 % (3-14); Neutrophils Absolute Auto 3200 /uL (1500-7000); Neutrophils Percent Auto 57.1 % (50-75); Platelet Count 222 X10^3/uL (150-400); Red Blood Cell Count 3.83 X10^6/uL (4.5-5.9); Red Cell Distribution Width 14.8 % (11.6-14.8); White Blood Cell Count 5.7 X10^3/uL (4.5-11.0)
--- NOTE | 2018-11-07 09:49 | SLP.IPNOTE ---
Pt discussed at rounds. Pt is back to baseline diet and will be discharged today. Swallow eval order cancelled per Dr. Miller.
--- NOTE | 2018-11-07 10:24 | DIET.PN ---
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 HT: 167.6cm WT: 45.6kg BMI: 16.2 (severe for age) Labs: BG 87-226, Alk Phos 218 (H) Nutrition Diagnosis: Chronic severe PCM r/t dx (CVA x2 c L sided weakness, signficant colon PMHx, prior sig. etoh/tobacco dependence) aeb <75% EER for 1 mo, BMI 16.2 (severe for age), repeat admissions to acute care, and severe loss of subcutaneous fat and muscle throughout. Interventions: Strongly recc ONS Ensure Enlive bid as a regular part of his diet, or, alternately, 100% whey protein powder added to food. This will help keep him from dropping into negative nitrogen balance, preserve energy, and reduce barrier to achieving adequate POs r/t diminished dexterity from CVA. Monitoring/Evaluations: wt, I&Os
--- NOTE | 2018-11-07 15:24 | CM.DPNOTE ---
DC Note: Placed call to pt's spouse Fariba, explained role and updated on DC today. Fariba agreeable to taking pt home an explains she can get pt into her car w/assist from staff at , then assist from family once they're home. Fariba requests [facility] be contacted by this DIRECTOR OF FIELD SERVICE to request HH services be resumed. Fariba appreciative of the following disciplines: PT/OT/RN/VEHICLE CHECK IN CLERK. Contacted [facility], requested resumption services, Merna christianson eden requests DC summary and resumption orders. Faxed these to # [phone] P: DC back home today w/ spouse/family via pov w/ resumption of [facility] services. DEAN Mccann
--- NOTE | 2018-11-07 16:22 | PC.NURSE ---
Patient with discharge orders. arrived to pick patient up at 1600. This RN explained the discharge paperwork and prescription, which was all given to his . Per day shift RN, picc line removed by Yolanda IRVIN. Pt escorted via wheelchair to transportation by this RN.
== END 2018-11-07 16:10 | disposition home health service (06) | DRG 377 ==
LOC: ED 11-06 00:32 → AC 11-06 07:02
PROVIDERS: Anesthesiology; Surgery; Admitting Provider Nurse Practitioner Gerontology; Emergency Provider Emergency Medicine; Visit Provider Nurse Practitioner Gerontology
PROC: 0DJ08ZZ Inspection of Upper Intestinal Tract, Via Natural or Artificial Opening Endoscopic (ICD-10-PCS; CPT 43235; principal; 2018-11-06 13:15)
DX: K29.71 Gastritis, unspecified, with bleeding (principal); E43 Unspecified severe protein-calorie malnutrition; I69.354 Hemiplegia and hemiparesis following cerebral infarction affecting left non-dominant side; Z68.1 Body mass index [BMI] 19.9 or less, adult; I69.320 Aphasia following cerebral infarction; I69.391 Dysphagia following cerebral infarction; R13.10 Dysphagia, unspecified; E86.0 Dehydration; G40.909 Epilepsy, unspecified, not intractable, without status epilepticus; I10 Essential (primary) hypertension; T39.015A Adverse effect of aspirin, initial encounter; T45.525A Adverse effect of antithrombotic drugs, initial encounter; E78.5 Hyperlipidemia, unspecified; D50.9 Iron deficiency anemia, unspecified; Z87.891 Personal history of nicotine dependence
CPT/HCPCS: 36415; 43239; 74022; 80053; 82272; 82947; 82962; 83605; 83735; 85025; 85610; 85730; 86850; 86900; 86901; 88305; 88342; 93005; 93010; 96374; 99152; 99232; 99283; C9113; J0360; J1642; J1953; J2704

== ENCOUNTER 2019-02-04 13:15 | Inpatient (IN) | payer MEDICARE, OTHER, SELFPAY ==
[2018-11-06 01:20] VITALS: BMI 16.9
[2019-02-04] VITALS (11 sets, daily range): BP systolic 138–178; BP diastolic 65–99; PULSE 51–68; RESP 8–18; TEMP 36.7; O2SAT 99–100; BMI 16.6
--- NOTE | 2019-02-04 13:41 | ED.NEUROSD ---
HPI - Neuro Symptoms/Deficit <Meghan King, DO - Last Filed: 02/04/19 18:11> General Chief Complaint: Neuro Symptoms/Deficit Stated Complaint: sleepy,disorinted and falling Time Seen by Provider: 02/04/19 13:30 Source: patient and family Mode of arrival: Wheelchair Limitations: no limitations History of Present Illness HPI Narrative: This is a 73-year-old male who comes to the emergency department for weakness, lethargy and fall. Patient was found on the floor at home. Son states he is typically not very ambulatory and does not walk unassisted. He does not know exactly how long the patient was there. He lives in house with the family and was sleeping in 1 of the rooms so was not for a especially prolonged period time but could possibly have been several hours patient is confused per the son. Patient can tell me his name he tells me he hurts everywhere and when asked specific body parts answers yes. He denies any nausea, no vomiting he denies any issues with bowel movements or urination. Son states that he was constipated earlier today. There has not been any bright red blood or black in the stool. Patient currently denies any shortness of breath. 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 He does not believe he has any cardiac history but does take medication for hypertension and has had GI bleed in the past.. On Anticoagulants: No Related Data Home Medications Medication Instructions Recorded Confirmed omeprazole 20 mg PO DAILY #0 11/13/16 02/04/19 Disabled Parking Permit 1 ea MISCELLANEOUS DIRECTED 12/25/17 02/04/19 felodipine 10 mg PO DAILY 12/25/17 02/04/19 ferrous sulfate 1 tab PO DAILY 12/25/17 02/04/19 fluoxetine 30 mg PO DAILY 12/25/17 02/04/19 levetiracetam 500 mg PO BID 12/25/17 02/04/19 lisinopril 20 mg PO DAILY 12/25/17 02/04/19 loratadine 10 mg PO DAILY PRN 12/25/17 02/04/19 mirtazapine 30 mg PO BEDTIME 12/25/17 02/04/19 phenytoin sodium extended 100 mg PO BID 12/25/17 02/04/19 Allergies Allergy/AdvReac Type Severity Reaction Status Date / Time vancomycin [VANCOMYCIN] Allergy Unknown VANCO Verified 02/04/19 13:30 ALLERGY ON SN[facility] FACE SHEET Review of Systems <Meghan King DO - Last Filed: 02/04/19 18:11> Review of Systems ROS Unobtainable: Unobtainable due to mental status/LOC Patient History <Meghan King DO - Last Filed: 02/04/19 18:11> Medical History CVA, old, alterations of sensations (Acute) History of small bowel obstruction (Chronic) Hypertension (Acute) Iron deficiency anemia (Acute) Seizure disorder (Acute) Surgical History History of appendectomy (Chronic) History of bowel resection (Chronic) History of colonoscopy with polypectomy (Chronic) Family History Father Cancer Social History household members: spouse and children Smoking Status: Never smoker alcohol intake: never Substance Use Type: does not use Exam <Meghan King DO - Last Filed: 02/04/19 18:11> Narrative Exam Narrative: GEN: Thin elderly male, alert and oriented to self, patient answers some questions but has difficulty answering others, patient appears to be in moderate distress. HEENT: Atraumatic, pupils are pinpoint, extraocular movements are intact, nares are clear, TMs are clear with no fluid, there is no conjunctival pallor. Throat is clear without any exudates, erythema, tonsillar enlargement or uvular deviation, no facial droop appreciated. HEART: Regular rate and rhythm without murmur, clicks, rubs. Pulses are equal in upper and lower extremities LUNGS:Lungs clear to auscultation, no wheezes, rales, crackles, chest moves symmetrically ABD:bowel sounds normal, soft, non-tender, no guarding, rebound, rigidity, no masses noted, no hepatosplenomegaly :No CVA tenderness BACK: No cervical, thoracic or lumbar vertebral point tenderness. Patient has decreased range of motion. Patient's gait is not tested. MSCL: Non-tender to palpation. Negative pelvic rock. NEURO:CN 2-12 intact, sensation normal, reflexes 2/4 upper and lower extremities SKIN: no rash, no petechiae, no ecchymosis noted. Initial Vital Signs Initial Vital Signs: Vital Signs Temperature 98.1 F 02/04/19 13:30 Pulse Rate 51 L 02/04/19 13:30 Respiratory Rate 15 02/04/19 13:30 Blood Pressure 169/97 H 02/04/19 13:30 Pulse Oximetry 100 02/04/19 13:30 <Juan Overton DO - Last Filed: 02/04/19 18:33> Initial Vital Signs Initial Vital Signs: Vital Signs Temperature 98.1 F 02/04/19 13:30 Pulse Rate 51 L 02/04/19 13:30 Respiratory Rate 15 02/04/19 13:30 Blood Pressure 169/97 H 02/04/19 13:30 Pulse Oximetry 100 02/04/19 13:30 Scores <Meghan King DO - Last Filed: 02/04/19 18:11> GCS [place] coma scale eye opening: Spontaneous Tanya coma scale verbal response: Confused Tanya coma scale motor response: Obey commands Tanya coma scale total score: 14 Course <Meghan King DO - Last Filed: 02/04/19 18:11> Orders Ordered: ED Orders 02/04/19 13:35 EKG-12 Lead Stat 02/04/19 13:51 Urine Culture Stat Urine Drug Screen, Rapid Stat 02/04/19 13:52 XR chest 1V Stat 02/04/19 13:56 Complete Blood Count AUTO DIFF Stat Comprehensive Metabolic Panel Stat Ethanol (ETOH) Stat Lactate (Lactic Acid) Stat Levetiracetam Keppra Stat Partial Thromboplastin Time Stat Phenytoin / Dilantin Stat Prolactin Stat Prothrombin Time INR Stat Thyroid Stimulating Hormone Stat Troponin I Stat 02/04/19 14:24 Arterial Blood Gas Stat 02/04/19 14:36 CT head/brain wo con Stat 02/04/19 14:39 Acetaminophen Stat Ammonia (NH3) Stat Blood Culture Stat Salicylate Stat Discontinued Medications Sodium Chloride (Normal Saline 0.9%) 1,000 mls @ 1,000 mls/hr IV BOLUS ONE Stop: 02/04/19 14:50 Last Infusion: 02/04/19 15:33 Dose: 0 mls/hr Documented by: Admin: 02/04/19 14:18 Dose: 1,000 mls/hr Documented by: ISAAC Sodium Chloride (Normal Saline 0.9%) 1,000 mls @ 1,000 mls/hr IV BOLUS ONE Stop: 02/04/19 16:28 Last Infusion: 02/04/19 16:45 Dose: 0 mls/hr Documented by: Admin: 02/04/19 15:31 Dose: 1,000 mls/hr Documented by: HAIM Vital Signs Vital signs: Vital Signs - 8 hr 02/04/19 13:30 02/04/19 15:03 02/04/19 15:33 Temperature 98.1 F Pulse Rate 51 L 68 62 Respiratory Rate 15 8 L 16 Blood Pressure 169/97 H Blood Pressure [Left Arm] 150/72 H 171/70 H Pulse Oximetry 100 100 100 02/04/19 15:42 02/04/19 16:00 02/04/19 16:30 Temperature Pulse Rate 66 65 60 Respiratory Rate 8 L 12 9 L Blood Pressure Blood Pressure [Left Arm] 164/89 H 163/66 H 178/76 H Pulse Oximetry 99 100 100 02/04/19 17:00 02/04/19 17:30 Temperature Pulse Rate 60 62 Respiratory Rate 9 L 9 L Blood Pressure Blood Pressure [Left Arm] 138/99 H 155/65 H Pulse Oximetry 100 100 <Juan Overton, DO - Last Filed: 02/04/19 18:33> Orders Ordered: ED Orders 02/04/19 13:35 EKG-12 Lead Stat 02/04/19 13:51 Urine Culture Stat Urine Drug Screen, Rapid Stat 02/04/19 13:52 XR chest 1V Stat 02/04/19 13:56 Complete Blood Count AUTO DIFF Stat Comprehensive Metabolic Panel Stat Ethanol (ETOH) Stat Lactate (Lactic Acid) Stat Levetiracetam Keppra Stat Partial Thromboplastin Time Stat Phenytoin / Dilantin Stat Prolactin Stat Prothrombin Time INR Stat Thyroid Stimulating Hormone Stat Troponin I Stat 02/04/19 14:24 Arterial Blood Gas Stat 02/04/19 14:36 CT head/brain wo con Stat 02/04/19 14:39 Acetaminophen Stat Ammonia (NH3) Stat Blood Culture Stat Salicylate Stat Discontinued Medications Sodium Chloride (Normal Saline 0.9%) 1,000 mls @ 1,000 mls/hr IV BOLUS ONE Stop: 02/04/19 14:50 Last Infusion: 02/04/19 15:33 Dose: 0 mls/hr Documented by: MAXIMINOSENSom Admin: 02/04/19 14:18 Dose: 1,000 mls/hr Documented by: ISAAC Sodium Chloride (Normal Saline 0.9%) 1,000 mls @ 1,000 mls/hr IV BOLUS ONE Stop: 02/04/19 16:28 Last Infusion: 02/04/19 16:45 Dose: 0 mls/hr Documented by: MAXIMINOSENSom Admin: 02/04/19 15:31 Dose: 1,000 mls/hr Documented by: HAIM Vital Signs Vital signs: Vital Signs - 8 hr 02/04/19 13:30 02/04/19 15:03 02/04/19 15:33 Temperature 98.1 F Pulse Rate 51 L 68 62 Respiratory Rate 15 8 L 16 Blood Pressure 169/97 H Blood Pressure [Left Arm] 150/72 H 171/70 H Pulse Oximetry 100 100 100 02/04/19 15:42 02/04/19 16:00 02/04/19 16:30 Temperature Pulse Rate 66 65 60 Respiratory Rate 8 L 12 9 L Blood Pressure Blood Pressure [Left Arm] 164/89 H 163/66 H 178/76 H Pulse Oximetry 99 100 100 02/04/19 17:00 02/04/19 17:30 Temperature Pulse Rate 60 62 Respiratory Rate 9 L 9 L Blood Pressure Blood Pressure [Left Arm] 138/99 H 155/65 H Pulse Oximetry 100 100 MDM - Neuro Symptoms/Deficit <Meghan King DO - Last Filed: 02/04/19 18:11> Lab Data Attestation: I reviewed the patient's lab results. Result diagrams: 02/04/19 13:56 02/04/19 13:56 Labs: Lab Results 02/04/19 02/04/19 02/04/19 Range/Units 13:56 13:56 13:56 WBC 6.6 (4.5-11.0) X10^3/uL RBC 4.34 L (4.5-5.9) X10^6/uL Hgb 13.6 (13.5-17.5) g/dL Hct 40.0 L (41-53) % MCV 92.2 (80-100) fL MCH 31.4 (26-34) PG MCHC 34.0 (30-36) % RDW 15.7 H (11.6-14.8) % Plt Count 223 (150-400) X10^3/uL Neut % (Auto) 75.2 H (50-75) % Lymph % (Auto) 16.3 L (25-40) % [place] % (Auto) 7.3 (3-14) % Eos % (Auto) 0.7 L (2-4) % Baso % (Auto) 0.5 (0-2) % Neut # (Auto) 4900 (7599-6183) /uL Lymph # (Auto) 1100 (2174-9593) /uL [place] # (Auto) 500 (0-900) /uL Eos # (Auto) 0 (0-450) /uL Baso # (Auto) 0 (0-100) /uL PT 11.6 (10.1-12.7) SECONDS INR 1.0 (0.9-1.3) APTT 35 (26.4-36.2) SECONDS ABG pH (7.35-7.45) ABG pCO2 (35-45) mmHg ABG pO2 (80-100) mmHg ABG HCO3 (22-26) mmol/L ABG Total CO2 (21-31) mmol/L ABG O2 Saturation (95-100) % ABG Base Excess (-2-2) mmol/L FiO2 Sodium 148 H (137-145) mmol/L Potassium 3.7 (3.4-5.1) mmol/L Chloride 108 H (98-107) mmol/L Carbon Dioxide 29 (22-32) mmol/L BUN 26 H (9-20) mg/dL Creatinine 0.90 (0.66-1.25) mg/dL Estimated GFR > 60.0 (>60) mL/min BUN/Creatinine Ratio 28.9 H (6-22) Glucose 61 L (80-110) mg/dL Lactate (0.7-2.1) mmol/L Calcium 9.7 (8.4-10.2) mg/dL Total Bilirubin 0.4 (0.2-1.3) mg/dL AST 34 (17-59) IU/L ALT 25 (<50) IU/L Alkaline Phosphatase 195 H (38-126) U/L Ammonia (9-30) umol/L Troponin I < 0.012 (0.01-0.034) ng/mL Total Protein 8.3 H (6.3-8.2) g/dL Albumin 4.9 (3.5-5.0) g/dL Globulin 3.4 (1.7-4.1) g/dL Albumin/Globulin Ratio 1.4 (1.0-2.8) TSH (0.47-4.68) uIU/mL Prolactin 7.7 (3.7-17.9) ng/mL Salicylates (<20) mg/dL Acetaminophen (10-30) ug/mL Phenytoin (10-20) ug/mL Ethyl Alcohol < 10 ( - 10) mg/dL 02/04/19 02/04/19 02/04/19 Range/Units 13:56 13:56 13:56 WBC (4.5-11.0) X10^3/uL RBC (4.5-5.9) X10^6/uL Hgb (13.5-17.5) g/dL Hct (41-53) % MCV (80-100) fL MCH (26-34) PG MCHC (30-36) % RDW (11.6-14.8) % Plt Count (150-400) X10^3/uL Neut % (Auto) (50-75) % Lymph % (Auto) (25-40) % [place] % (Auto) (3-14) % Eos % (Auto) (2-4) % Baso % (Auto) (0-2) % Neut # (Auto) (2985-1236) /uL Lymph # (Auto) (7275-5061) /uL [place] # (Auto) (0-900) /uL Eos # (Auto) (0-450) /uL Baso # (Auto) (0-100) /uL PT (10.1-12.7) SECONDS INR (0.9-1.3) APTT (26.4-36.2) SECONDS ABG pH (7.35-7.45) ABG pCO2 (35-45) mmHg ABG pO2 (80-100) mmHg ABG HCO3 (22-26) mmol/L ABG Total CO2 (21-31) mmol/L ABG O2 Saturation (95-100) % ABG Base Excess (-2-2) mmol/L FiO2 Sodium (137-145) mmol/L Potassium (3.4-5.1) mmol/L Chloride (98-107) mmol/L Carbon Dioxide (22-32) mmol/L BUN (9-20) mg/dL Creatinine (0.66-1.25) mg/dL Estimated GFR (>60) mL/min BUN/Creatinine Ratio (6-22) Glucose (80-110) mg/dL Lactate 2.2 H (0.7-2.1) mmol/L Calcium (8.4-10.2) mg/dL Total Bilirubin (0.2-1.3) mg/dL AST (17-59) IU/L ALT (<50) IU/L Alkaline Phosphatase (38-126) U/L Ammonia (9-30) umol/L Troponin I (0.01-0.034) ng/mL Total Protein (6.3-8.2) g/dL Albumin (3.5-5.0) g/dL Globulin (1.7-4.1) g/dL Albumin/Globulin Ratio (1.0-2.8) TSH 0.90 (0.47-4.68) uIU/mL Prolactin (3.7-17.9) ng/mL Salicylates (<20) mg/dL Acetaminophen (10-30) ug/mL Phenytoin 43.8 H* (10-20) ug/mL Ethyl Alcohol ( - 10) mg/dL 02/04/19 02/04/19 02/04/19 Range/Units 14:24 14:39 14:39 WBC (4.5-11.0) X10^3/uL RBC (4.5-5.9) X10^6/uL Hgb (13.5-17.5) g/dL Hct (41-53) % MCV (80-100) fL MCH (26-34) PG MCHC (30-36) % RDW (11.6-14.8) % Plt Count (150-400) X10^3/uL Neut % (Auto) (50-75) % Lymph % (Auto) (25-40) % [place] % (Auto) (3-14) % Eos % (Auto) (2-4) % Baso % (Auto) (0-2) % Neut # (Auto) (3080-0840) /uL Lymph # (Auto) (5896-2122) /uL [place] # (Auto) (0-900) /uL Eos # (Auto) (0-450) /uL Baso # (Auto) (0-100) /uL PT (10.1-12.7) SECONDS INR (0.9-1.3) APTT (26.4-36.2) SECONDS ABG pH 7.39 (7.35-7.45) ABG pCO2 45.3 H (35-45) mmHg ABG pO2 82 (80-100) mmHg ABG HCO3 27 H (22-26) mmol/L ABG Total CO2 29 (21-31) mmol/L ABG O2 Saturation 96 (95-100) % ABG Base Excess 2.0 (-2-2) mmol/L FiO2 0.21 Sodium (137-145) mmol/L Potassium (3.4-5.1) mmol/L Chloride (98-107) mmol/L Carbon Dioxide (22-32) mmol/L BUN (9-20) mg/dL Creatinine (0.66-1.25) mg/dL Estimated GFR (>60) mL/min BUN/Creatinine Ratio (6-22) Glucose (80-110) mg/dL Lactate (0.7-2.1) mmol/L Calcium (8.4-10.2) mg/dL Total Bilirubin (0.2-1.3) mg/dL AST (17-59) IU/L ALT (<50) IU/L Alkaline Phosphatase (38-126) U/L Ammonia < 9.0 L (9-30) umol/L Troponin I (0.01-0.034) ng/mL Total Protein (6.3-8.2) g/dL Albumin (3.5-5.0) g/dL Globulin (1.7-4.1) g/dL Albumin/Globulin Ratio (1.0-2.8) TSH (0.47-4.68) uIU/mL Prolactin (3.7-17.9) ng/mL Salicylates < 1.0 (<20) mg/dL Acetaminophen < 10 L (10-30) ug/mL Phenytoin (10-20) ug/mL Ethyl Alcohol ( - 10) mg/dL 02/04/19 Range/Units 16:32 WBC (4.5-11.0) X10^3/uL RBC (4.5-5.9) X10^6/uL Hgb (13.5-17.5) g/dL Hct (41-53) % MCV (80-100) fL MCH (26-34) PG MCHC (30-36) % RDW (11.6-14.8) % Plt Count (150-400) X10^3/uL Neut % (Auto) (50-75) % Lymph % (Auto) (25-40) % [place] % (Auto) (3-14) % Eos % (Auto) (2-4) % Baso % (Auto) (0-2) % Neut # (Auto) (7231-3778) /uL Lymph # (Auto) (6823-2435) /uL [place] # (Auto) (0-900) /uL Eos # (Auto) (0-450) /uL Baso # (Auto) (0-100) /uL PT (10.1-12.7) SECONDS INR (0.9-1.3) APTT (26.4-36.2) SECONDS ABG pH (7.35-7.45) ABG pCO2 (35-45) mmHg ABG pO2 (80-100) mmHg ABG HCO3 (22-26) mmol/L ABG Total CO2 (21-31) mmol/L ABG O2 Saturation (95-100) % ABG Base Excess (-2-2) mmol/L FiO2 Sodium (137-145) mmol/L Potassium (3.4-5.1) mmol/L Chloride (98-107) mmol/L Carbon Dioxide (22-32) mmol/L BUN (9-20) mg/dL Creatinine (0.66-1.25) mg/dL Estimated GFR (>60) mL/min BUN/Creatinine Ratio (6-22) Glucose (80-110) mg/dL Lactate 2.2 H (0.7-2.1) mmol/L Calcium (8.4-10.2) mg/dL Total Bilirubin (0.2-1.3) mg/dL AST (17-59) IU/L ALT (<50) IU/L Alkaline Phosphatase (38-126) U/L Ammonia (9-30) umol/L Troponin I (0.01-0.034) ng/mL Total Protein (6.3-8.2) g/dL Albumin (3.5-5.0) g/dL Globulin (1.7-4.1) g/dL Albumin/Globulin Ratio (1.0-2.8) TSH (0.47-4.68) uIU/mL Prolactin (3.7-17.9) ng/mL Salicylates (<20) mg/dL Acetaminophen (10-30) ug/mL Phenytoin (10-20) ug/mL Ethyl Alcohol ( - 10) mg/dL Point of Care Testing Glucose POC 97 Urine Dip Bedside Urine Glucose 250 mg/dl Bedside Urine Bilirubin - Negative Bedside Urine Ketone - Negative Urine Specific [place] 1.015 Bedside Urine Occult Blood - Negative Bedside Urine pH 6.0 Bedside Urine Protein +/- 15 Bedside Urine Urobilinogen - Negative Bedside Urine Nitrite - Negative Bedside Urine Leukocytes - Negative Esterase Imaging Data CT scan - head: Radiologist's impression: Joseph Milan Ryder 73 M [address] [id number] Scan Report Signed Patient: Joseph Milan RMR#: [id number] : 1945cct:[id number] Age/Sex: 73 / MDate of Service: 02/04/19 Loc: ED Accession Number: [id number] Procedure: CT head/brain wo con Ordering Provider: Meghan King D.O. PROCEDURE: CT HEAD/BRAIN WO CON INDICATIONS: fall, weakness, confused. TECHNIQUE: Noncontrast 4.5 mm thick angled axial sections acquired from the foramen magnum to the vertex, with coronal and sagittal reformats. For radiation dose reduction, the following was used: automated exposure control, adjustment of mA and/or kV according to patient size. COMPARISON: [facility], CT, CT HEAD/BRAIN WO CON, 09/02/2018, 0:35. Brain MRI 09/02/2018. FINDINGS: Image quality: Excellent. Repeat acquisition was obtained of the vertex to to motion artifact. CSF spaces: Basal cisterns are patent. No extra-axial fluid collections. Ventricles are normal in size and shape. Brain: No midline shift. No intracranial masses or hemorrhage. A large area of hypodensity in a vascular distribution to suggest infarction. Small left parietal periventricular lacunar infarct seen on brain MRI 09/02/2018 is not appreciated. Marked periventricular hypodensity most consistent with chronic mitral vascular ischemic change. Distal ICA intracranial otoscopic calcifications. Age-related parenchymal loss. Skull and face: Calvarium and visualized facial bones are intact, without suspicious lesions. Sinuses: Visualized sinuses and mastoids are clear. IMPRESSION: No acute intracranial abnormality demonstrated. Dictated by: Morales Schumacher M.D. on 02/04/2019 at 14:45 Approved by: Morales Schumacher M.D. on 02/04/2019 at 14:51 Chest x-ray: Radiologist's impression: [address] [id number] XRay Report Signed Patient: Joseph Milan RMR#: [id number] : 8Acct:[id number] Age/Sex: 73 / MDate of Service: 02/04/19 Loc: ED Accession Number: [id number] Procedure: XR chest 1V Ordering Provider: Meghan King D.O. PROCEDURE: XR CHEST 1V INDICATIONS: fall, weakness, confused. TECHNIQUE: One view of the chest was acquired. COMPARISON: [facility], , CHEST FOR PICC PLACEMENT, 04/05/2017, 11:33. FINDINGS: Surgical changes and devices: None. Lungs and pleura: Lungs are clear. No pleural effusions or pneumothorax. Mediastinum: Mediastinal contours appear normal. Heart size is normal. Bones and chest wall: No suspicious bony lesions. Overlying soft tissues appear unremarkable. IMPRESSION: No acute process. Dictated by: Lashon Pimentel M.D. on 02/04/2019 at 14:32 Approved by: Lashon Pimentel M.D. on 02/04/2019 at 14:32 ECG Data Attestation: I personally reviewed and interpreted this ECG as follows: Prior ECG tracings: available for review Interpretation: Sinus rhythm, rate of 61, pr of 151, qrs of 150 qtc 463. Patient has right bundle branch block with depression in lateral leads. Patient has prior EKGS which showed right bundle branch block as well as depression that similar in lateral leads. [facility] Narrative Medical decision making narrative: Patient presented with initially with decreased mental status for patient and . is having vertigo type symptoms. Initial concern for CO toxicity but patient has additional family members living and present today in house including son at bedside who is asymptomatic. CT head and CXR show no acute changes. CBC shows normal hemoglobin and no leukocytosis, coags are negative, ABG shows no very slight elevation of Patient phenytion level is elevated at 43. patient is hypoglycemia during stay but not initially. Patient has had mental status changes described family which would be consistent with toxicity. Spoke with science teacher at [employer], she states needs to hold dilantin over the next several days. Will slowly come down and likely will take 3-5 days total. She does not believe that the hypoglycemia is related to Dilantin toxicity. States that could be change because patient started taking medication or if any new medication was added. Patient's hypoglycemia improved with glucose but patient's mental status did not. I spoke with our hospitalist Dr. Valladares who politely refuses admission as he feels patient will need a neurologist. We did discuss toxicology recommendations that dilantin needs to be held for several days. Contacted [facility] hospitalist [facility]ael. I spoke with Dr. Alexander, he would like to speak with our hospitalist Dr. Valladares. Dr. Valladares came to department and he accepts patient for here. States he will contact family. <Juan Overton, - Last Filed: 02/04/19 18:33> Lab Data Labs: Lab Results 02/04/19 02/04/19 02/04/19 Range/Units 13:56 13:56 13:56 WBC 6.6 (4.5-11.0) X10^3/uL RBC 4.34 L (4.5-5.9) X10^6/uL Hgb 13.6 (13.5-17.5) g/dL Hct 40.0 L (41-53) % MCV 92.2 (80-100) fL MCH 31.4 (26-34) PG MCHC 34.0 (30-36) % RDW 15.7 H (11.6-14.8) % Plt Count 223 (150-400) X10^3/uL Neut % (Auto) 75.2 H (50-75) % Lymph % (Auto) 16.3 L (25-40) % [place] % (Auto) 7.3 (3-14) % Eos % (Auto) 0.7 L (2-4) % Baso % (Auto) 0.5 (0-2) % Neut # (Auto) 4900 (1797-6078) /uL Lymph # (Auto) 1100 (0267-7852) /uL [place] # (Auto) 500 (0-900) /uL Eos # (Auto) 0 (0-450) /uL Baso # (Auto) 0 (0-100) /uL PT 11.6 (10.1-12.7) SECONDS INR 1.0 (0.9-1.3) APTT 35 (26.4-36.2) SECONDS ABG pH (7.35-7.45) ABG pCO2 (35-45) mmHg ABG pO2 (80-100) mmHg ABG HCO3 (22-26) mmol/L ABG Total CO2 (21-31) mmol/L ABG O2 Saturation (95-100) % ABG Base Excess (-2-2) mmol/L FiO2 Sodium 148 H (137-145) mmol/L Potassium 3.7 (3.4-5.1) mmol/L Chloride 108 H (98-107) mmol/L Carbon Dioxide 29 (22-32) mmol/L BUN 26 H (9-20) mg/dL Creatinine 0.90 (0.66-1.25) mg/dL Estimated GFR > 60.0 (>60) mL/min BUN/Creatinine Ratio 28.9 H (6-22) Glucose 61 L (80-110) mg/dL Lactate (0.7-2.1) mmol/L Calcium 9.7 (8.4-10.2) mg/dL Total Bilirubin 0.4 (0.2-1.3) mg/dL AST 34 (17-59) IU/L ALT 25 (<50) IU/L Alkaline Phosphatase 195 H (38-126) U/L Ammonia (9-30) umol/L Troponin I < 0.012 (0.01-0.034) ng/mL Total Protein 8.3 H (6.3-8.2) g/dL Albumin 4.9 (3.5-5.0) g/dL Globulin 3.4 (1.7-4.1) g/dL Albumin/Globulin Ratio 1.4 (1.0-2.8) TSH (0.47-4.68) uIU/mL Prolactin 7.7 (3.7-17.9) ng/mL Salicylates (<20) mg/dL Acetaminophen (10-30) ug/mL Phenytoin (10-20) ug/mL Ethyl Alcohol < 10 ( - 10) mg/dL 02/04/19 02/04/19 02/04/19 Range/Units 13:56 13:56 13:56 WBC (4.5-11.0) X10^3/uL RBC (4.5-5.9) X10^6/uL Hgb (13.5-17.5) g/dL Hct (41-53) % MCV (80-100) fL MCH (26-34) PG MCHC (30-36) % RDW (11.6-14.8) % Plt Count (150-400) X10^3/uL Neut % (Auto) (50-75) % Lymph % (Auto) (25-40) % [place] % (Auto) (3-14) % Eos % (Auto) (2-4) % Baso % (Auto) (0-2) % Neut # (Auto) (7748-9344) /uL Lymph # (Auto) (0754-5147) /uL [place] # (Auto) (0-900) /uL Eos # (Auto) (0-450) /uL Baso # (Auto) (0-100) /uL PT (10.1-12.7) SECONDS INR (0.9-1.3) APTT (26.4-36.2) SECONDS ABG pH (7.35-7.45) ABG pCO2 (35-45) mmHg ABG pO2 (80-100) mmHg ABG HCO3 (22-26) mmol/L ABG Total CO2 (21-31) mmol/L ABG O2 Saturation (95-100) % ABG Base Excess (-2-2) mmol/L FiO2 Sodium (137-145) mmol/L Potassium (3.4-5.1) mmol/L Chloride (98-107) mmol/L Carbon Dioxide (22-32) mmol/L BUN (9-20) mg/dL Creatinine (0.66-1.25) mg/dL Estimated GFR (>60) mL/min BUN/Creatinine Ratio (6-22) Glucose (80-110) mg/dL Lactate 2.2 H (0.7-2.1) mmol/L Calcium (8.4-10.2) mg/dL Total Bilirubin (0.2-1.3) mg/dL AST (17-59) IU/L ALT (<50) IU/L Alkaline Phosphatase (38-126) U/L Ammonia (9-30) umol/L Troponin I (0.01-0.034) ng/mL Total Protein (6.3-8.2) g/dL Albumin (3.5-5.0) g/dL Globulin (1.7-4.1) g/dL Albumin/Globulin Ratio (1.0-2.8) TSH 0.90 (0.47-4.68) uIU/mL Prolactin (3.7-17.9) ng/mL Salicylates (<20) mg/dL Acetaminophen (10-30) ug/mL Phenytoin 43.8 H* (10-20) ug/mL Ethyl Alcohol ( - 10) mg/dL 02/04/19 02/04/19 02/04/19 Range/Units 14:24 14:39 14:39 WBC (4.5-11.0) X10^3/uL RBC (4.5-5.9) X10^6/uL Hgb (13.5-17.5) g/dL Hct (41-53) % MCV (80-100) fL MCH (26-34) PG MCHC (30-36) % RDW (11.6-14.8) % Plt Count (150-400) X10^3/uL Neut % (Auto) (50-75) % Lymph % (Auto) (25-40) % [place] % (Auto) (3-14) % Eos % (Auto) (2-4) % Baso % (Auto) (0-2) % Neut # (Auto) (3352-9587) /uL Lymph # (Auto) (9144-2349) /uL [place] # (Auto) (0-900) /uL Eos # (Auto) (0-450) /uL Baso # (Auto) (0-100) /uL PT (10.1-12.7) SECONDS INR (0.9-1.3) APTT (26.4-36.2) SECONDS ABG pH 7.39 (7.35-7.45) ABG pCO2 45.3 H (35-45) mmHg ABG pO2 82 (80-100) mmHg ABG HCO3 27 H (22-26) mmol/L ABG Total CO2 29 (21-31) mmol/L ABG O2 Saturation 96 (95-100) % ABG Base Excess 2.0 (-2-2) mmol/L FiO2 0.21 Sodium (137-145) mmol/L Potassium (3.4-5.1) mmol/L Chloride (98-107) mmol/L Carbon Dioxide (22-32) mmol/L BUN (9-20) mg/dL Creatinine (0.66-1.25) mg/dL Estimated GFR (>60) mL/min BUN/Creatinine Ratio (6-22) Glucose (80-110) mg/dL Lactate (0.7-2.1) mmol/L Calcium (8.4-10.2) mg/dL Total Bilirubin (0.2-1.3) mg/dL AST (17-59) IU/L ALT (<50) IU/L Alkaline Phosphatase (38-126) U/L Ammonia < 9.0 L (9-30) umol/L Troponin I (0.01-0.034) ng/mL Total Protein (6.3-8.2) g/dL Albumin (3.5-5.0) g/dL Globulin (1.7-4.1) g/dL Albumin/Globulin Ratio (1.0-2.8) TSH (0.47-4.68) uIU/mL Prolactin (3.7-17.9) ng/mL Salicylates < 1.0 (<20) mg/dL Acetaminophen < 10 L (10-30) ug/mL Phenytoin (10-20) ug/mL Ethyl Alcohol ( - 10) mg/dL 02/04/19 Range/Units 16:32 WBC (4.5-11.0) X10^3/uL RBC (4.5-5.9) X10^6/uL Hgb (13.5-17.5) g/dL Hct (41-53) % MCV (80-100) fL MCH (26-34) PG MCHC (30-36) % RDW (11.6-14.8) % Plt Count (150-400) X10^3/uL Neut % (Auto) (50-75) % Lymph % (Auto) (25-40) % [place] % (Auto) (3-14) % Eos % (Auto) (2-4) % Baso % (Auto) (0-2) % Neut # (Auto) (0956-0053) /uL Lymph # (Auto) (9482-9408) /uL [place] # (Auto) (0-900) /uL Eos # (Auto) (0-450) /uL Baso # (Auto) (0-100) /uL PT (10.1-12.7) SECONDS INR (0.9-1.3) APTT (26.4-36.2) SECONDS ABG pH (7.35-7.45) ABG pCO2 (35-45) mmHg ABG pO2 (80-100) mmHg ABG HCO3 (22-26) mmol/L ABG Total CO2 (21-31) mmol/L ABG O2 Saturation (95-100) % ABG Base Excess (-2-2) mmol/L FiO2 Sodium (137-145) mmol/L Potassium (3.4-5.1) mmol/L Chloride (98-107) mmol/L Carbon Dioxide (22-32) mmol/L BUN (9-20) mg/dL Creatinine (0.66-1.25) mg/dL Estimated GFR (>60) mL/min BUN/Creatinine Ratio (6-22) Glucose (80-110) mg/dL Lactate 2.2 H (0.7-2.1) mmol/L Calcium (8.4-10.2) mg/dL Total Bilirubin (0.2-1.3) mg/dL AST (17-59) IU/L ALT (<50) IU/L Alkaline Phosphatase (38-126) U/L Ammonia (9-30) umol/L Troponin I (0.01-0.034) ng/mL Total Protein (6.3-8.2) g/dL Albumin (3.5-5.0) g/dL Globulin (1.7-4.1) g/dL Albumin/Globulin Ratio (1.0-2.8) TSH (0.47-4.68) uIU/mL Prolactin (3.7-17.9) ng/mL Salicylates (<20) mg/dL Acetaminophen (10-30) ug/mL Phenytoin (10-20) ug/mL Ethyl Alcohol ( - 10) mg/dL Point of Care Testing Glucose POC 97 Urine Dip Bedside Urine Glucose 250 mg/dl Bedside Urine Bilirubin - Negative Bedside Urine Ketone - Negative Urine Specific [place] 1.015 Bedside Urine Occult Blood - Negative Bedside Urine pH 6.0 Bedside Urine Protein +/- 15 Bedside Urine Urobilinogen - Negative Bedside Urine Nitrite - Negative Bedside Urine Leukocytes - Negative Esterase MDM Narrative Medical decision making narrative: Dr Overton: This patient was initially turned over to me from Dr. king pending disposition however prior to any interaction that I had with the patient the final disposition was made. Dr. King completed the emergency department encounter. I had no physician patient relationship with this patient. This note is being sign by myself for administrative purposes. Due to the EMR issues I became assigned to this patient and cannot unassign myself. Discharge Plan Departure Clinical Impression: High phenytoin level, Hypoglycemia Admit Date/Time: 02/04/19 18:22 Admit Provider: Teo Valladares
--- NOTE | 2019-02-04 13:52 | DI.RAD.S_ITS ---
PROCEDURE: XR CHEST 1V INDICATIONS: fall, weakness, confused. TECHNIQUE: One view of the chest was acquired. COMPARISON: [facility], , CHEST FOR PICC PLACEMENT, 04/05/2017, 11:33. FINDINGS: Surgical changes and devices: None. Lungs and pleura: Lungs are clear. No pleural effusions or pneumothorax. Mediastinum: Mediastinal contours appear normal. Heart size is normal. Bones and chest wall: No suspicious bony lesions. Overlying soft tissues appear unremarkable. IMPRESSION: No acute process. Dictated by: Lashon Pimentel M.D. on 02/04/2019 at 14:32 Approved by: Lashon Pimentel M.D. on 02/04/2019 at 14:32
[2019-02-04] MEDS: SODIUM CHLORIDE 0.9% 1,000 ML 1000 ML IV ×2 (14:18→15:31)
[2019-02-04 14:28] LABS: Prothrombin Time 11.6 SECONDS (10.1-12.7)
[2019-02-04 14:29] LABS: Add Manual Diff / Slide Review NO; Basophils Absolute Auto 0 /uL (0-100); Basophils Percent Auto 0.5 % (0-2); Eosinophils Absolute Auto 0 /uL (0-450); Eosinophils Percent Auto 0.7 % (2-4); Hemoglobin 13.6 g/dL (13.5-17.5); Lymphocytes Absolute Auto 1100 /uL (1100-4500); Lymphocytes Percent Auto 16.3 % (25-40); Mean Corpuscular Hemoglobin 31.4 PG (26-34); Mean Corpuscular Volume 92.2 fL (80-100); Monocytes Absolute Auto 500 /uL (0-900); Monocytes Percent Auto 7.3 % (3-14); Neutrophils Absolute Auto 4900 /uL (1500-7000); Neutrophils Percent Auto 75.2 % (50-75); Platelet Count 223 X10^3/uL (150-400); Red Blood Cell Count 4.34 X10^6/uL (4.5-5.9); Red Cell Distribution Width 15.7 % (11.6-14.8); White Blood Cell Count 6.6 X10^3/uL (4.5-11.0)
[2019-02-04 14:31] LABS: Lactate (Lactic Acid) 2.2 mmol/L (0.7-2.1); PTT Partial Thromboplastin Tim 35 SECONDS (26.4-36.2)
--- NOTE | 2019-02-04 14:36 | DI.CT.S_ITS ---
PROCEDURE: CT HEAD/BRAIN WO CON INDICATIONS: fall, weakness, confused. TECHNIQUE: Noncontrast 4.5 mm thick angled axial sections acquired from the foramen magnum to the vertex, with coronal and sagittal reformats. For radiation dose reduction, the following was used: automated exposure control, adjustment of mA and/or kV according to patient size. COMPARISON: [facility], CT, CT HEAD/BRAIN WO CON, 09/02/2018, 0:35. Brain MRI 09/02/2018. FINDINGS: Image quality: Excellent. Repeat acquisition was obtained of the vertex to to motion artifact. CSF spaces: Basal cisterns are patent. No extra-axial fluid collections. Ventricles are normal in size and shape. Brain: No midline shift. No intracranial masses or hemorrhage. A large area of hypodensity in a vascular distribution to suggest infarction. Small left parietal periventricular lacunar infarct seen on brain MRI 09/02/2018 is not appreciated. Marked periventricular hypodensity most consistent with chronic mitral vascular ischemic change. Distal ICA intracranial otoscopic calcifications. Age-related parenchymal loss. Skull and face: Calvarium and visualized facial bones are intact, without suspicious lesions. Sinuses: Visualized sinuses and mastoids are clear. IMPRESSION: No acute intracranial abnormality demonstrated. Dictated by: Morales Schumacher M.D. on 02/04/2019 at 14:45 Approved by: Morales Schumacher M.D. on 02/04/2019 at 14:51
[2019-02-04 14:45] LABS: Alanine Aminotransferase 25 IU/L (<50); Albumin 4.9 g/dL (3.5-5.0); Albumin Globulin Ratio 1.4 (1.0-2.8); Alkaline Phosphatase 195 U/L (38-126); Aspartate Aminotransferase 34 IU/L (17-59); BUN Creatinine Ratio 28.9 (6-22); Bilirubin Total 0.4 mg/dL (0.2-1.3); Blood Urea Nitrogen 26 mg/dL (9-20); Calcium 9.7 mg/dL (8.4-10.2); Carbon Dioxide 29 mmol/L (22-32); Chloride 108 mmol/L (98-107); Estimated Glomerular Filt Rate > 60.0 mL/min (>60); Ethanol (ETOH) < 10 mg/dL; Globulin 3.4 g/dL (1.7-4.1); Glucose 61 mg/dL (80-110); Potassium 3.7 mmol/L (3.4-5.1); Sodium 148 mmol/L (137-145); Total Protein 8.3 g/dL (6.3-8.2)
[2019-02-04 15:01] LABS: Prolactin 7.7 ng/mL (3.7-17.9)
[2019-02-04 15:02] LABS: Fractionated Inspired Oxygen 0.21; HCO3 ABG 27 mmol/L (22-26); Oxygen Saturation ABG 96 % (95-100); PCO2 ABG 45.3 mmHg (35-45); PO2 ABG 82 mmHg (80-100); TCO2 ABG 29 mmol/L (21-31); pH ABG 7.39 (7.35-7.45)
--- NOTE | 2019-02-04 15:05 | PC.NURSE ---
arrived alert, reporting feeling tired, states, he fell then went to sleep, denies any discomfort on arrival. ski cool to touch, warm blanket provided. son at bs. reporting he has sxs for 2 weeks
[2019-02-04 15:06] LABS: Ammonia (NH3) < 9.0 umol/L (9-30)
[2019-02-04 15:18] LABS: HEMOLYSIS < 15 (0-50); Troponin I < 0.012 ng/mL (0.01-0.034)
[2019-02-04] MEDS: DEXTROSE 50 % IN WATER 25 GM/50 ML SYRINGE (15:29)
--- NOTE | 2019-02-04 15:42 | PC.NURSE ---
oriented to person,place and time.
[2019-02-04 15:51] LABS: Phenytoin / Dilantin 43.8 ug/mL (10-20)
[2019-02-04 16:08] LABS: Acetaminophen < 10 ug/mL (10-30); Salicylate < 1.0 mg/dL (<20)
[2019-02-04 16:15] LABS: Reflexed Lactate in 2 Hours Y
[2019-02-04 16:48] LABS: Lactate 2HR (Lactic Acid Rflx) 2.2 mmol/L (0.7-2.1)
--- NOTE | 2019-02-04 18:12 | PM.HP.1 ---
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 History obtained via son over the phone as he was not available at the bedside. was in the ED at the same time and is currently resting. History further obtained via chart review. Per the son, over the past few weeks he has progressed with worsening fatigue and falls. Previously, the son reports good days and bad days but states the bad days have increased in frequency. The son brought him in after this fall because he was found sleeping and has been concerned about his worsening fatigue. The son denied any fevers or chills, urinary frequency, complaints of dysuria. He has been having normal bowel movements, 2-3 per day, with no melena bright red blood. The son reports that there were no changes in the patient's medications recently. The son states that the patient's neurologist has retired, and that the patient has not seen his new neurologist as of yet. Upon my exam the patient denied pain, he was alert and oriented only to self. In the ED, his vital signs were notable for mild hypertension, but otherwise were unremarkable. His labs were notable for I Dilantin level of 43.8, Keppra level is currently pending, lactate of 2.2, glucose of 61, and sodium of 148. The ED spoke with poison Control who stated symptoms could be consistent with Dilantin toxicity. Treatment of Dilantin toxicity is supportive care, and to continue checking Dilantin levels daily until improved. They state that this may take a few days to improve. Patient History Medical History CVA, old, alterations of sensations (Acute) History of small bowel obstruction (Chronic) Hypertension (Acute) Iron deficiency anemia (Acute) Seizure disorder (Acute) Surgical History History of appendectomy (Chronic) History of bowel resection (Chronic) History of colonoscopy with polypectomy (Chronic) Family & Social History Family History Father Cancer Social History: household members spouse,children Safety & Behavioral: Feels Safe in Current Yes Environment Been Physically Hurt or No Threatened By a Person Tobacco & Substance use: Smoking Status Never smoker alcohol intake never Substance Use Type does not use Meds Home Medications and Allergies Home Medications Medication Instructions Recorded Confirmed Type omeprazole 20 mg PO DAILY #0 11/13/16 02/04/19 History Disabled Parking Permit 1 ea MISCELLANEOUS DIRECTED 12/25/17 02/04/19 History felodipine 10 mg PO DAILY 12/25/17 02/04/19 History ferrous sulfate 1 tab PO DAILY 12/25/17 02/04/19 History fluoxetine 30 mg PO DAILY 12/25/17 02/04/19 History levetiracetam 500 mg PO BID 12/25/17 02/04/19 History lisinopril 20 mg PO DAILY 12/25/17 02/04/19 History loratadine 10 mg PO DAILY PRN 12/25/17 02/04/19 History mirtazapine 30 mg PO BEDTIME 12/25/17 02/04/19 History phenytoin sodium extended 100 mg PO BID 12/25/17 02/04/19 History Allergies Allergy/AdvReac Type Severity Reaction Status Date / Time vancomycin [VANCOMYCIN] Allergy Unknown VANCO Verified 02/04/19 13:30 ALLERGY ON SNF FACE SHEET Review of Systems Review of Systems Narrative: All other systems reviewed with the patient and are negative unless otherwise stated. However the patient is not fully oriented. Exam Vital Signs (past 8 hours): - 02/04/19 13:30 02/04/19 15:03 02/04/19 15:33 Temperature 98.1 F Pulse Rate 51 L 68 62 Respiratory Rate 15 8 L 16 Blood Pressure 169/97 H Blood Pressure [Left Arm] 150/72 H 171/70 H Pulse Oximetry 100 100 100 02/04/19 15:42 02/04/19 16:00 02/04/19 16:30 Temperature Pulse Rate 66 65 60 Respiratory Rate 8 L 12 9 L Blood Pressure Blood Pressure [Left Arm] 164/89 H 163/66 H 178/76 H Pulse Oximetry 99 100 100 02/04/19 17:00 02/04/19 17:30 Temperature Pulse Rate 60 62 Respiratory Rate 9 L 9 L Blood Pressure Blood Pressure [Left Arm] 138/99 H 155/65 H Pulse Oximetry 100 100 Oxygen Delivery Method Room Air Objective Labs Result Diagrams: 02/04/19 13:56 02/04/19 13:56 Labs: Laboratory Results - last 24 hr 02/04/19 02/04/19 02/04/19 13:56 13:56 13:56 WBC 6.6 RBC 4.34 L Hgb 13.6 Hct 40.0 L MCV 92.2 MCH 31.4 MCHC 34.0 RDW 15.7 H Plt Count 223 Neut % (Auto) 75.2 H Lymph % (Auto) 16.3 L [place] % (Auto) 7.3 Eos % (Auto) 0.7 L Baso % (Auto) 0.5 Neut # (Auto) 4900 Lymph # (Auto) 1100 [place] # (Auto) 500 Eos # (Auto) 0 Baso # (Auto) 0 PT 11.6 INR 1.0 APTT 35 ABG pH ABG pCO2 ABG pO2 ABG HCO3 ABG Total CO2 ABG O2 Saturation ABG Base Excess FiO2 Sodium 148 H Potassium 3.7 Chloride 108 H Carbon Dioxide 29 BUN 26 H Creatinine 0.90 Estimated GFR > 60.0 BUN/Creatinine Ratio 28.9 H Glucose 61 L Lactate Calcium 9.7 Total Bilirubin 0.4 AST 34 ALT 25 Alkaline Phosphatase 195 H Ammonia Troponin I < 0.012 Total Protein 8.3 H Albumin 4.9 Globulin 3.4 Albumin/Globulin Ratio 1.4 TSH Prolactin 7.7 Salicylates Acetaminophen Phenytoin Ethyl Alcohol < 10 02/04/19 02/04/19 02/04/19 13:56 13:56 13:56 WBC RBC Hgb Hct MCV MCH MCHC RDW Plt Count Neut % (Auto) Lymph % (Auto) [place] % (Auto) Eos % (Auto) Baso % (Auto) Neut # (Auto) Lymph # (Auto) [place] # (Auto) Eos # (Auto) Baso # (Auto) PT INR APTT ABG pH ABG pCO2 ABG pO2 ABG HCO3 ABG Total CO2 ABG O2 Saturation ABG Base Excess FiO2 Sodium Potassium Chloride Carbon Dioxide BUN Creatinine Estimated GFR BUN/Creatinine Ratio Glucose Lactate 2.2 H Calcium Total Bilirubin AST ALT Alkaline Phosphatase Ammonia Troponin I Total Protein Albumin Globulin Albumin/Globulin Ratio TSH 0.90 Prolactin Salicylates Acetaminophen Phenytoin 43.8 H* Ethyl Alcohol 02/04/19 02/04/19 02/04/19 14:24 14:39 14:39 WBC RBC Hgb Hct MCV MCH MCHC RDW Plt Count Neut % (Auto) Lymph % (Auto) [place] % (Auto) Eos % (Auto) Baso % (Auto) Neut # (Auto) Lymph # (Auto) [place] # (Auto) Eos # (Auto) Baso # (Auto) PT INR APTT ABG pH 7.39 ABG pCO2 45.3 H ABG pO2 82 ABG HCO3 27 H ABG Total CO2 29 ABG O2 Saturation 96 ABG Base Excess 2.0 FiO2 0.21 Sodium Potassium Chloride Carbon Dioxide BUN Creatinine Estimated GFR BUN/Creatinine Ratio Glucose Lactate Calcium Total Bilirubin AST ALT Alkaline Phosphatase Ammonia < 9.0 L Troponin I Total Protein Albumin Globulin Albumin/Globulin Ratio TSH Prolactin Salicylates < 1.0 Acetaminophen < 10 L Phenytoin Ethyl Alcohol 02/04/19 16:32 WBC RBC Hgb Hct MCV MCH MCHC RDW Plt Count Neut % (Auto) Lymph % (Auto) [place] % (Auto) Eos % (Auto) Baso % (Auto) Neut # (Auto) Lymph # (Auto) [place] # (Auto) Eos # (Auto) Baso # (Auto) PT INR APTT ABG pH ABG pCO2 ABG pO2 ABG HCO3 ABG Total CO2 ABG O2 Saturation ABG Base Excess FiO2 Sodium Potassium Chloride Carbon Dioxide BUN Creatinine Estimated GFR BUN/Creatinine Ratio Glucose Lactate 2.2 H Calcium Total Bilirubin AST ALT Alkaline Phosphatase Ammonia Troponin I Total Protein Albumin Globulin Albumin/Globulin Ratio TSH Prolactin Salicylates Acetaminophen Phenytoin Ethyl Alcohol Assessment & Plan Assessment & Plan narrative: The patient is a 73-year-old male with PMHx of HTN, HLD, 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 1. Toxic metabolic encephalopathy -patient previously has been documented as Alert and oriented to person place and year. Upon my exam he was oriented only to person. The son further reports fatigue over the past 2 weeks. According to poison Control this is likely secondary to his elevated Dilantin level which is 43. CT head was unremarkable, and there is no evidence infectious etiologies at this time. He does have mild hypernatremia, however this is less likely related to his presentation. He further is on Keppra, for which a level of pending. -continue to follow Dilantin levels daily -will need to obtain further information from and son regarding dosing of his medications, as well as to discuss with his outside neurologist group. - seizure precautions. -will await Keppra levels before restarting this medication - PT evaluation upon improvement in dilantin level given reports of increased falls to assess if patient is at baseline status. 2. Dilantin toxicity, present on admission - -management as noted above -ED discussed case with poison Control, and they are available for further assistance if necessary - will hold dilantin and 3. History of seizure disorder -given Dilantin toxicity, and pending Keppra level will hold both of these medications at this time. Will attempt to reach out to patient's Neurology group for assistance with restarting these medications. 4. History of CVA, chronic, stable -patient has history of 2 CVAs in the past with reported left-sided weakness. On my exam his left upper extremity appeared equal to his right. Unclear baseline, and patient is further likely week secondary to metabolic encephalopathy as noted above. 5. HTN, chronic, present on admission, active - - continue home antihypertensives 6. HLD, chronic, stable - not currently on medications per home reconcilliation Code: Full, surrogate decision maker is patient's DVT: Lovenox Dispo: Patient admitted as inpatient as his stay is expected to exceed two midnights.
[2019-02-04] MEDS: DEXTROSE 5% WATER 1,000 ML 125 ML IV (20:09)
--- NOTE | 2019-02-04 23:34 | PC.NURSE ---
A&O to self. denied any pain, sob, or nausea. 100%RA. cont pulse ox on. IVF. pt is incontinent. bed mobility 1PA. call light in reach. bed alarm active.
[2019-02-05] VITALS (7 sets, daily range): BP systolic 132–181; BP diastolic 78–110; PULSE 52–83; RESP 15–20; TEMP 36.7–37.1; O2SAT 90–100; BMI 16.6
[2019-02-05] MEDS: PANTOPRAZOLE 20 MG TABLET PO (05:45)
[2019-02-05 06:04] LABS: Add Manual Diff / Slide Review NO; Basophils Absolute Auto 100 /uL (0-100); Basophils Percent Auto 1.2 % (0-2); Eosinophils Absolute Auto 100 /uL (0-450); Eosinophils Percent Auto 3.4 % (2-4); Hematocrit 36.4 % (41-53); Hemoglobin 12.2 g/dL (13.5-17.5); Lymphocytes Absolute Auto 1700 /uL (1100-4500); Lymphocytes Percent Auto 40.2 % (25-40); Mean Corpuscular HGB Conc 33.5 % (30-36); Mean Corpuscular Hemoglobin 31.1 PG (26-34); Mean Corpuscular Volume 92.7 fL (80-100); Monocytes Absolute Auto 300 /uL (0-900); Monocytes Percent Auto 7.4 % (3-14); Neutrophils Absolute Auto 2000 /uL (1500-7000); Neutrophils Percent Auto 47.8 % (50-75); Platelet Count 193 X10^3/uL (150-400); Red Blood Cell Count 3.93 X10^6/uL (4.5-5.9); Red Cell Distribution Width 15.9 % (11.6-14.8); White Blood Cell Count 4.2 X10^3/uL (4.5-11.0)
[2019-02-05 06:06] LABS: BUN Creatinine Ratio 18.6 (6-22); Blood Urea Nitrogen 13 mg/dL (9-20); Calcium 8.7 mg/dL (8.4-10.2); Carbon Dioxide 31 mmol/L (22-32); Chloride 104 mmol/L (98-107); Estimated Glomerular Filt Rate > 60.0 mL/min (>60); Glucose 81 mg/dL (80-110); HEMOLYSIS < 15 (0-50); Magnesium 1.6 mg/dL (1.6-2.3); Phosphorous 2.8 mg/dL (2.3-3.7); Potassium 3.3 mmol/L (3.4-5.1); Sodium 140 mmol/L (137-145)
[2019-02-05] MEDS: ENOXAPARIN 40 MG/0.4 ML SYRINGE SUBCUT (09:00)
[2019-02-05] MEDS: LISINOPRIL 20 MG TABLET PO (09:00)
[2019-02-05] MEDS: FERROUS SULFATE 325 MG TABLET PO (09:00)
[2019-02-05] MEDS: FELODIPINE ER 5 MG TAB 10 MG PO (09:01)
[2019-02-05] MEDS: FLUoxetine 10 MG CAPSULE 30 MG PO (09:02)
--- NOTE | 2019-02-05 10:27 | DIET.PN ---
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 HT: 167.6cm WT: 46kg BMI: 16.6 (severe for age) Labs: phenytoin 38 H Nutrition Diagnosis: Chronic severe PCM r/t dx (CVA x2 c L sided weakness, signficant colon PMHx, prior sig. etoh/tobacco dependence) aeb <75% EER for >1 mo, BMI 16.6 (severe for age), repeat admissions to acute care, and severe loss of subcutaneous fat and muscle throughout. Interventions: 1. Adaptive silverware and cup c lid 2. Recc ONS Enlive tid Strongly recc ONS Ensure Enlive bid as a regular part of his diet, or, alternately, 100% whey protein powder added to food. This will help keep him from dropping into negative nitrogen balance, preserve energy, and reduce barrier to achieving adequate POs r/t diminished dexterity from CVA. Monitoring/Evaluations: wt, I&Os
--- NOTE | 2019-02-05 10:47 | PM.PN.1 ---
Subjective Subjective Date Patient Seen: 02/05/19 Time Patient Seen: 09:00 Interval history: MR. 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 The level is slowly decreasing and was 38 this morning. His mental status has not changed much from yesterday, but this is likely to improve as his phenytoin level goes down. Exam Vital Signs (past 8 hours): - 02/05/19 04:30 02/05/19 07:55 Temperature 98.1 F 98.0 F Pulse Rate 67 59 L Respiratory Rate 16 18 Blood Pressure 134/84 178/78 H Pulse Oximetry 99 100 Oxygen Delivery Method Room Air Oxygen Flow Rate 0 Narrative Exam Narrative: GENERAL APPEARANCE: Chronically ill-appearing, thin male with some muscle wasting. Resting comfortably in ED stretcher. SKIN: Inspection of the skin reveals no rashes, ulcerations or petechiae. HEENT: Dry mucous membranes, no tongue lacerations or evidence of bruising/trauma. NECK: Supple and symmetric. There was no thyroid enlargement, and no tenderness, or masses were felt. CHEST: Normal AP diameter and normal contour without any kyphoscoliosis. LUNGS: Auscultation of the lungs revealed no wheezes, rhonchi, or rales. CARDIOVASCULAR: There was a regular rate and rhythm without any murmurs, gallops, rubs. Peripheral pulses were 2+ and symmetric. ABDOMEN: Soft and nontender with normal bowel sounds. MUSCULOSKELETAL: There was no tenderness or effusions noted. Muscle strength and tone were normal. EXTREMITIES: No cyanosis, clubbing or edema. NEUROLOGIC: Alert and oriented to name only, patient repeats my name when asked about year and location. There is mild horizontal nystagmus this morning. Patient following commands. Objective Labs Result Diagrams: 02/05/19 05:40 02/05/19 05:40 Labs: Laboratory Results - last 24 hr 02/04/19 02/04/19 02/04/19 13:56 13:56 13:56 WBC 6.6 RBC 4.34 L Hgb 13.6 Hct 40.0 L MCV 92.2 MCH 31.4 MCHC 34.0 RDW 15.7 H Plt Count 223 Neut % (Auto) 75.2 H Lymph % (Auto) 16.3 L [place] % (Auto) 7.3 Eos % (Auto) 0.7 L Baso % (Auto) 0.5 Neut # (Auto) 4900 Lymph # (Auto) 1100 [place] # (Auto) 500 Eos # (Auto) 0 Baso # (Auto) 0 PT 11.6 INR 1.0 APTT 35 ABG pH ABG pCO2 ABG pO2 ABG HCO3 ABG Total CO2 ABG O2 Saturation ABG Base Excess FiO2 Sodium 148 H Potassium 3.7 Chloride 108 H Carbon Dioxide 29 BUN 26 H Creatinine 0.90 Estimated GFR > 60.0 BUN/Creatinine Ratio 28.9 H Glucose 61 L Lactate Calcium 9.7 Phosphorus Magnesium Total Bilirubin 0.4 AST 34 ALT 25 Alkaline Phosphatase 195 H Ammonia Troponin I < 0.012 Total Protein 8.3 H Albumin 4.9 Globulin 3.4 Albumin/Globulin Ratio 1.4 TSH Prolactin 7.7 Salicylates Acetaminophen Phenytoin Ethyl Alcohol < 10 02/04/19 02/04/19 02/04/19 13:56 13:56 13:56 WBC RBC Hgb Hct MCV MCH MCHC RDW Plt Count Neut % (Auto) Lymph % (Auto) [place] % (Auto) Eos % (Auto) Baso % (Auto) Neut # (Auto) Lymph # (Auto) [place] # (Auto) Eos # (Auto) Baso # (Auto) PT INR APTT ABG pH ABG pCO2 ABG pO2 ABG HCO3 ABG Total CO2 ABG O2 Saturation ABG Base Excess FiO2 Sodium Potassium Chloride Carbon Dioxide BUN Creatinine Estimated GFR BUN/Creatinine Ratio Glucose Lactate 2.2 H Calcium Phosphorus Magnesium Total Bilirubin AST ALT Alkaline Phosphatase Ammonia Troponin I Total Protein Albumin Globulin Albumin/Globulin Ratio TSH 0.90 Prolactin Salicylates Acetaminophen Phenytoin 43.8 H* Ethyl Alcohol 02/04/19 02/04/19 02/04/19 14:24 14:39 14:39 WBC RBC Hgb Hct MCV MCH MCHC RDW Plt Count Neut % (Auto) Lymph % (Auto) [place] % (Auto) Eos % (Auto) Baso % (Auto) Neut # (Auto) Lymph # (Auto) [place] # (Auto) Eos # (Auto) Baso # (Auto) PT INR APTT ABG pH 7.39 ABG pCO2 45.3 H ABG pO2 82 ABG HCO3 27 H ABG Total CO2 29 ABG O2 Saturation 96 ABG Base Excess 2.0 FiO2 0.21 Sodium Potassium Chloride Carbon Dioxide BUN Creatinine Estimated GFR BUN/Creatinine Ratio Glucose Lactate Calcium Phosphorus Magnesium Total Bilirubin AST ALT Alkaline Phosphatase Ammonia < 9.0 L Troponin I Total Protein Albumin Globulin Albumin/Globulin Ratio TSH Prolactin Salicylates < 1.0 Acetaminophen < 10 L Phenytoin Ethyl Alcohol 02/04/19 02/05/19 02/05/19 16:32 05:40 05:40 WBC 4.2 L RBC 3.93 L Hgb 12.2 L Hct 36.4 L MCV 92.7 MCH 31.1 MCHC 33.5 RDW 15.9 H Plt Count 193 Neut % (Auto) 47.8 L D Lymph % (Auto) 40.2 H D [place] % (Auto) 7.4 Eos % (Auto) 3.4 Baso % (Auto) 1.2 Neut # (Auto) 2000 Lymph # (Auto) 1700 [place] # (Auto) 300 Eos # (Auto) 100 Baso # (Auto) 100 PT INR APTT ABG pH ABG pCO2 ABG pO2 ABG HCO3 ABG Total CO2 ABG O2 Saturation ABG Base Excess FiO2 Sodium Potassium Chloride Carbon Dioxide BUN Creatinine Estimated GFR BUN/Creatinine Ratio Glucose Lactate 2.2 H 1.0 Calcium Phosphorus Magnesium Total Bilirubin AST ALT Alkaline Phosphatase Ammonia Troponin I Total Protein Albumin Globulin Albumin/Globulin Ratio TSH Prolactin Salicylates Acetaminophen Phenytoin Ethyl Alcohol 02/05/19 02/05/19 05:40 05:40 WBC RBC Hgb Hct MCV MCH MCHC RDW Plt Count Neut % (Auto) Lymph % (Auto) [place] % (Auto) Eos % (Auto) Baso % (Auto) Neut # (Auto) Lymph # (Auto) [place] # (Auto) Eos # (Auto) Baso # (Auto) PT INR APTT ABG pH ABG pCO2 ABG pO2 ABG HCO3 ABG Total CO2 ABG O2 Saturation ABG Base Excess FiO2 Sodium 140 Potassium 3.3 L Chloride 104 Carbon Dioxide 31 BUN 13 Creatinine 0.70 Estimated GFR > 60.0 BUN/Creatinine Ratio 18.6 Glucose 81 Lactate Calcium 8.7 Phosphorus 2.8 Magnesium 1.6 Total Bilirubin AST ALT Alkaline Phosphatase Ammonia Troponin I Total Protein Albumin Globulin Albumin/Globulin Ratio TSH Prolactin Salicylates Acetaminophen Phenytoin 38.0 H* D Ethyl Alcohol Assessment & Plan Assessment & Plan narrative: The patient is a 73-year-old male with PMHx of HTN, HLD, 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 1. Toxic metabolic encephalopathy -patient previously has been documented as Alert and oriented to person place and year. Upon my exam he was oriented only to person. The son further reports fatigue over the past 2 weeks. According to poison Control this is likely secondary to his elevated Dilantin level which is 43. CT head was unremarkable, and there is no evidence infectious etiologies at this time. He does have mild hypernatremia, however this is less likely related to his presentation. He further is on Keppra, for which a level of pending. -continue to follow Dilantin levels daily -will need to obtain further information from and son regarding dosing of his medications, as well as to discuss with his outside neurologist group. - seizure precautions. -will await Keppra levels before restarting this medication - PT evaluation upon improvement in dilantin level given reports of increased falls to assess if patient is at baseline status. 2. Dilantin toxicity, present on admission - -management as noted above -ED discussed case with poison Control, and they are available for further assistance if necessary - will hold dilantin and 3. Hypernatremia, present on remission, resolved. - patient was given 1L of d5W over 8 hours. Na level has improved to 140 today. 4. History of seizure disorder -given Dilantin toxicity, and pending Keppra level will hold both of these medications at this time. Will attempt to reach out to patient's Neurology group for assistance with restarting these medications. 5. History of CVA, chronic, stable -patient has history of 2 CVAs in the past with reported left-sided weakness. On my exam his left extremity appears equal to his right. Unclear baseline, and patient is further likely week secondary to metabolic encephalopathy as noted above. 6. HTN, chronic, present on admission, active - - continue home antihypertensives. may need to increase dosing if blood pressure remains elevated today after receiving morning medications. 7. HLD, chronic, stable - not currently on medications per home reconcilliation 8. Hypokalemia, acute - - will replete today with oral if tolerated. 9. severe protein calorie malnutrition, present on admission, chronic. Code: Full, surrogate decision maker is patient's DVT: Lovenox Dispo: Patient admitted as inpatient. Remains encephalopathic secondary to dilantin toxicity. Quality VTE Deep Vein Thrombosis/Pulmonary Embolism Present on Admission: No
--- NOTE | 2019-02-05 12:03 | PT-IP ANOTE ---
Attempted to eval pt at 1140am. Pt is Alert but very disoriented. Unable to recall time/ situation, nor following simple commands. He stated multiple times he wants to listen to jazz music and refused to mobilize with PT. Pt's O2 Sat stays at 80s and initiates O2 NC in 2L. Pt maintains at >98% afterwards. Notified RN Nursing with his current condition. Will reattempt PT until his cog status improved.
[2019-02-05] MEDS: POTASSIUM CHLORIDE 20 MEQ/15 ML UDC 40 MEQ PO (12:44)
--- NOTE | 2019-02-05 15:00 | PT.IIE ---
Surgical History (Last Reviewed 02/04/19 @ 13:56 by Meghan Riddle DO) History of appendectomy (Chronic) History of bowel resection (Chronic) History of colonoscopy with polypectomy (Chronic) Medical History (Last Reviewed 02/04/19 @ 13:56 by Meghan Riddle DO) CVA, old, alterations of sensations (Acute) History of small bowel obstruction (Chronic) Hypertension (Acute) Iron deficiency anemia (Acute) Seizure disorder (Acute) Physical Therapy Inpatient Evaluation/Re-Eval M1 PT/OT-IP Prior Functional Status Start: 02/05/19 08:23 Freq: NEEDED Status: Active Protocol: Document 02/05/19 15:00 AB (Rec: 02/05/19 16:39 AB [id number]) Medical Review Prior Functional Status Medical History Reviewed Yes Communication pt with confusion and memory issues but able to respond to questions Mobility and Gait pt stated that he is independent with transfers and ambulation without AD but stated that he does not walk far and has a w/c that he sometimes uses as well Activities of Daily Living and IADL's pt stated that his son/ assists him with dressing and showering Social History Household Members spouse,children Living Arrangements Apartment/Condo Number of Floors (Floors) Two Floors Number of Stairs To Enter/Railing? per pt: 4 steps to enter without rails; 4 steps with R rail ascending to get to bedroom level from PT eval last hospital admission: pt has 2 steps to enter without rails and 12 steps to get to bedroom level with bilateral rails Home Environment Standard Height Toilet,Built- In Shower Seat Home Equipment Front Wheel Walker,Hospital Bed,Grab Bars Near Toilet Additional Social History Comment pt stated that he has a hospital bed with rails M2 PT-IP Current Condition Start: 02/05/19 08:23 Freq: NEEDED Status: Active Protocol: Document 02/05/19 15:00 AB (Rec: 02/05/19 16:39 AB [id number]) Physical Therapy Current Condition Current Condition Evaluation Date 02/05/19 Treatment Diagnosis toxic metabolic encephalopathy ; difficulty in walking Onset Date 02/04/19 Precautions Other Precautions Falls M3 PT-IP Subjective Start: 02/05/19 08:23 Freq: NEEDED Status: Active Protocol: Document 02/05/19 15:00 AB (Rec: 02/05/19 16:39 AB [id number]) Subjective Physical Therapy Visit Type Type Initial Evaluation Visit Start Time 15:00 Visit Stop Time 16:34 Total Visit Minutes 55 Notes pt seen for split visit: 1500 to 1545 and 1624 to 1634. Number of FOUR H AGENT Visits 0 Physical Therapy Visit Comments Patient Comments pt agreeable to do PT Therapy Pain Assessment Pain Present Pain Present Denied Pain M4 PT-IP Mobility and Gait Start: 02/05/19 08:23 Freq: NEEDED Status: Active Protocol: Document 02/05/19 15:00 AB (Rec: 02/05/19 16:39 [id number]) PT-Bed Mobility Assessment Supine to Sit Supine to Sit Maximum Assistance,Head of Bed Elevated Scooting Scooting to Edge of Bed Maximum Assistance PT-Transfer Assessment Sit to and From Stand Sit to and from Stand Maximum Assistance,Use of Upper Extremities Equipment Transfer Assistive Device Gait Belt,Front Wheeled Walker Transfers Transfer Destination Chair Transfer Technique Stand Step Pivot Transfer Ability Level of Assist Maximum Assistance,1 Person Assistance,2 Person Assistance ,Use of Upper Extremities Comments Mobility Comments pt agreed to get up. requires increase time to complete tasks and max cues. completed supine to sit with HOB elevated max A and cues. pt with increase R sided leaning during standing requiring max A to maintain sitting balance on EOB. completed sit to stand max A x 2 and max cues. completed stand step pivot transfer max A x 1-2 and max cues. pt tried to sit midway through transfer and requires max A to control descent to the chair. positioned pt on the chair. chair alarm on. call light and table placed within reach. nurse requested assistance to transfer pt back to bed. pt completed sit to stand from the chair max A x 2 and max cues. pt requires cues for upright posture. pt continuest o have increase R sided leaning. required max Ax 2 for stand step pivot transfer. pt requires assist for weight shifting to be able to move RLE to step. pt completed bed mobility sit to supine max A x 2 and max cues. left pt with NAC. Gait Assessment Comments Gait Comments unable at this time PT-Balance Assessment Sitting Balance and Reactions Static Sitting Balance Ability Poor Dynamic Sitting Balance Ability Poor Standing Balance and Reactions Static Standing Balance Ability Poor Dynamic Standing Balance Ability Poor Device Used FWW M5 PT-IP Objective Assessments Start: 02/05/19 08:23 Freq: NEEDED Status: Active Protocol: Document 02/05/19 15:00 AB (Rec: 02/05/19 16:39 AB [id number]) Orientation Orientation/Cognition Level of Alertness Confusional State Orientation Name,Place Safety Awareness Decreased Safety Awareness Memory Description Short Term Impaired,Belt Line Feeder Impaired Gross Range of Motion Lower Extremity ROM Assessment Within Functional Limits Strength Lower Extremity Strength Assessment Bilaterally Impaired Comments Strength Comments RLE: 3+/5 LLE: 3+/5 M6 PT-IP Treatment Start: 02/05/19 08:23 Freq: NEEDED Status: Active Protocol: Document 02/05/19 15:00 AB (Rec: 02/05/19 16:39 AB [id number]) Physical Therapy Treatment Education Education Provided Safety M7 PT-IP Assessment and Plan Start: 02/05/19 08:23 Freq: NEEDED Status: Active Protocol: Document 02/05/19 15:00 AB (Rec: 02/05/19 16:39 AB [id number]) PT Summary Assessment and Plan Potential Rehabilitation Potential Fair Status of Condition at Evaluation Evolving Summary Impairments Pain,ROM,Strength,Balance, Coordination,Sensation,Tone, Cognition,Bed Mobility, Transfers,Gait,Activity Tolerance Assessment Summary pt requiring 2 person assist with mobility at this time. d /c plan depending if family will be able to provide necessary assistance but at this time will require SNF rehab. will continue to assess mobility progress. Goals Bed Mobility Goal Standby Assistance Transfer Goal Standby Assistance,Front Wheeled Walker Gait Goal Contact Guard Assistance,Front Wheel Walker Gait Distance 50 Other Goals up/down 4 steps without rails CGA up/down 12 steps with bilateral rails CGA Days to Meet Goals 10 Frequency of Treatment Frequency Of Treatment Once a Day Treatment Plan Physical Therapy Treatment Plan Bed Mobility Training,Transfer Training,Gait Training, Therapeutic Exercise,Balance Retraining,Discharge Planning, Neuromuscular Re-ed, Coordination Retraining,Manual Therapy Recommendations To Nursing Amount of Assist Needed 2 Person Assist Discharge Recommendations PT Discharge Recommendations SNF Rehab
--- NOTE | 2019-02-05 23:21 | PC.NURSE ---
pt A&O to self. pt confused and thinks he needs to go to work. kept trying to get out of bed. 2pa transfer only. incontinent. call light in reach. bed alarm active.
[2019-02-06 01:02] VITALS: BP 145/97
[2019-02-06 05:43] LABS: Acinetobacter baumannii Not Detected (Not Detect); Candida albicans Not Detected (Not Detect); Candida glabrata Not Detected (Not Detect); Candida krusei Not Detected (Not Detect); Candida parapsilosis Not Detected (Not Detect); Candida tropicalis Not Detected (Not Detect); E. coli Not Detected (Not Detect); Enterobacter cloacae complex Not Detected (Not Detect); Enterobacteriaceae species Not Detected (Not Detect); Enterococcus species Not Detected (Not Detect); Haemophilus influenzae Not Detected (Not Detect); Listeria monocytogenes Not Detected (Not Detect); Methicillin-resistant gene Not Detected (Not Detect); Neisseria meningitidis Not Detected (Not Detect); Proteus species Not Detected (Not Detect); Pseudomonas aeruginosa Not Detected (Not Detect); Serratia marcescens Not Detected (Not Detect); Staphylococcus species Detected (Not Detect); Streptococcus agalactiae (Gr B Not Detected (Not Detect); Streptococcus pneumonia Not Detected (Not Detect); Streptococcus pyogenes (Gr A) Not Detected (Not Detect); Streptococcus species Not Detected (Not Detect)
[2019-02-06 06:01] LABS: Add Manual Diff / Slide Review NO; Basophils Absolute Auto 0 /uL (0-100); Basophils Percent Auto 0.9 % (0-2); Eosinophils Absolute Auto 100 /uL (0-450); Eosinophils Percent Auto 2.2 % (2-4); Hematocrit 37.6 % (41-53); Hemoglobin 12.9 g/dL (13.5-17.5); Lymphocytes Absolute Auto 1700 /uL (1100-4500); Mean Corpuscular HGB Conc 34.2 % (30-36); Mean Corpuscular Hemoglobin 31.4 PG (26-34); Mean Corpuscular Volume 91.7 fL (80-100); Monocytes Absolute Auto 300 /uL (0-900); Monocytes Percent Auto 6.5 % (3-14); Neutrophils Absolute Auto 2600 /uL (1500-7000); Neutrophils Percent Auto 54.4 % (50-75); Platelet Count 196 X10^3/uL (150-400); Red Cell Distribution Width 15.5 % (11.6-14.8); White Blood Cell Count 4.7 X10^3/uL (4.5-11.0)
[2019-02-06 06:10] LABS: BUN Creatinine Ratio 15.7 (6-22); Blood Urea Nitrogen 11 mg/dL (9-20); Carbon Dioxide 30 mmol/L (22-32); Chloride 102 mmol/L (98-107); Estimated Glomerular Filt Rate > 60.0 mL/min (>60); Glucose 88 mg/dL (80-110); HEMOLYSIS < 15 (0-50); Magnesium 1.6 mg/dL (1.6-2.3); Potassium 3.6 mmol/L (3.4-5.1); Sodium 139 mmol/L (137-145)
[2019-02-06 06:14] VITALS: BP 161/88; PULSE 64; RESP 15; TEMP 36.9; O2SAT 98
[2019-02-06] MEDS: PANTOPRAZOLE 20 MG TABLET PO (06:35)
[2019-02-06 06:52] LABS: Phenytoin / Dilantin 34.8 ug/mL (10-20)
[2019-02-06 08:45] VITALS: BP 157/98; PULSE 75; RESP 16; TEMP 36.5; O2SAT 97
[2019-02-06 10:26] VITALS: BP 157/98
[2019-02-06] MEDS: LISINOPRIL 20 MG TABLET PO (10:26)
[2019-02-06] MEDS: FERROUS SULFATE 325 MG TABLET PO (10:27)
[2019-02-06] MEDS: FLUoxetine 10 MG CAPSULE 30 MG PO (10:27)
[2019-02-06] MEDS: ENOXAPARIN 40 MG/0.4 ML SYRINGE SUBCUT (10:27)
[2019-02-06] MEDS: FELODIPINE ER 5 MG TAB 10 MG PO (10:27)
--- NOTE | 2019-02-06 11:10 | PT.IPTN ---
Current Diagnoses Toxic encephalopathy (02/04/19) Physical Therapy Treatment Note M2 PT-IP Current Condition Start: 02/05/19 08:23 Freq: NEEDED Status: Active Protocol: Document 02/05/19 15:00 AB (Rec: 02/05/19 16:39 AB [id number]) Physical Therapy Current Condition Current Condition Evaluation Date 02/05/19 Treatment Diagnosis toxic metabolic encephalopathy ; difficulty in walking Onset Date 02/04/19 Precautions Other Precautions Falls M3 PT-IP Subjective Start: 02/05/19 08:23 Freq: NEEDED Status: Active Protocol: Document 02/06/19 11:10 AB (Rec: 02/06/19 11:58 AB [id number]) Subjective Physical Therapy Visit Type Type Treatment Note Visit Start Time 11:10 Visit Stop Time 11:40 Total Visit Minutes 30 Number of BEEF PLUCK TRIMMER Visits 0 Physical Therapy Visit Comments Patient Comments pt agreed to get out of the bed M4 PT-IP Mobility and Gait Start: 02/05/19 08:23 Freq: NEEDED Status: Active Protocol: Document 02/06/19 11:10 AB (Rec: 02/06/19 11:58 AB [id number]) PT-Bed Mobility Assessment Sit to Supine Sit to Supine Minimal Assistance,1 Person Assistance,Head of Bed Elevated PT-Transfer Assessment Sit to and From Stand Sit to and from Stand Maximum Assistance,1 Person Assistance,Use of Upper Extremities Equipment Transfer Assistive Device Gait Belt,Front Wheeled Walker Orthotic/Prosthetic Devices or Brace: No Transfers Transfer Destination Chair Transfer Technique Stand Step Pivot Transfer Ability Level of Assist Maximum Assistance,1 Person Assistance,Use of Upper Extremities Comments Mobility Comments pt agreed to get up. completed supine to sit with HOB elevated requiring min A and cues. pt is easily distracted and requires cues to refocus on tasks. also requires increase time to complete tasks. pt was able to sit on EOB CGA and continues to have increase trunk leaning on R side but is less compared to yesterdays . pt completed sit to stand max A and max cues for stability and upright posture. completed stand step pivot transfer using FWW to the chair max A and max cues. pt requires assist with weight shifting. pt let go of FWW and reached for the armrest midway through transfer. pt cued on safety and instructed to use FWW. required max A and max cues. positioned pt on the chair. call light and table within reach. chair alarm set up. M5 PT-IP Objective Assessments Start: 02/05/19 08:23 Freq: NEEDED Status: Active Protocol: Document 02/05/19 15:00 AB (Rec: 02/05/19 16:39 AB [id number]) Orientation Orientation/Cognition Level of Alertness Confusional State Orientation Name,Place Safety Awareness Decreased Safety Awareness Memory Description Short Term Impaired,Senior Living Impaired Gross Range of Motion Lower Extremity ROM Assessment Within Functional Limits Strength Lower Extremity Strength Assessment Bilaterally Impaired Comments Strength Comments RLE: 3+/5 LLE: 3+/5 M6 PT-IP Treatment Start: 02/05/19 08:23 Freq: NEEDED Status: Active Protocol: Document 02/06/19 11:10 AB (Rec: 02/06/19 11:58 AB [id number]) Physical Therapy Treatment Education Education Provided Safety M7 PT-IP Assessment and Plan Start: 02/05/19 08:23 Freq: NEEDED Status: Active Protocol: Document 02/06/19 11:10 AB (Rec: 02/06/19 11:58 AB [id number]) PT Summary Assessment and Plan Potential Rehabilitation Potential Good Summary Impairments Strength,Balance,Coordination, Cognition,Bed Mobility, Transfers,Gait,Activity Tolerance Progress Towards Goals Slow Progress due to Medical Issues,Slow Progress - Other Assessment Summary pt slowly progressing with mobility, requiring max A with mobility and max cues for safety. pt is easily distracted and requires cues for redirections. d/c plan depending on assistance at home. pt will require 24/7 assist. Goals Bed Mobility Goal Standby Assistance Transfer Goal Standby Assistance,Front Wheeled Walker Gait Goal Contact Guard Assistance,Front Wheel Walker Gait Distance 50 Other Goals up/down 4 steps without rails CGA up/down 12 steps with bilateral rails CGA Days to Meet Goals 10 Frequency of Treatment Frequency Of Treatment Once a Day Treatment Plan Physical Therapy Treatment Plan Bed Mobility Training,Transfer Training,Gait Training, Therapeutic Exercise,Balance Retraining,Discharge Planning, Neuromuscular Re-ed, Coordination Retraining,Manual Therapy Recommendations To Nursing Amount of Assist Needed 2 Person Assist Discharge Recommendations PT Discharge Recommendations SNF Rehab
--- NOTE | 2019-02-06 11:42 | P.PN_ITS ---
Subjective Subjective Date Patient Seen: 02/06/19 Time Patient Seen: 11:43 Interval history: MR. 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 The level is slowly decreasing and was 34 this morning. His mental status has improved slightly today and he is slightly more alert this morning and interactive compared to yesterday. He denies complaints this morning. Exam Vital Signs (past 8 hours): - 02/06/19 06:14 02/06/19 08:45 02/06/19 10:26 Temperature 98.5 F 97.7 F Pulse Rate 64 75 Respiratory Rate 15 16 Blood Pressure 161/88 H 157/98 H 157/98 H Pulse Oximetry 98 97 Oxygen Delivery Method Room Air Oxygen Flow Rate 0 Narrative Exam Narrative: GENERAL APPEARANCE: Chronically ill-appearing, thin male with some muscle wasting. Resting comfortably in hospital bed. SKIN: Inspection of the skin reveals no rashes, ulcerations or petechiae. HEENT: Dry mucous membranes, no tongue lacerations or evidence of bruising/trauma. NECK: Supple and symmetric. There was no thyroid enlargement, and no tenderness, or masses were felt. CHEST: Normal AP diameter and normal contour without any kyphoscoliosis. LUNGS: Auscultation of the lungs revealed no wheezes, rhonchi, or rales. CARDIOVASCULAR: There was a regular rate and rhythm without any murmurs, gallops, rubs. Peripheral pulses were 2+ and symmetric. ABDOMEN: Soft and nontender with normal bowel sounds. MUSCULOSKELETAL: There was no tenderness or effusions noted. Muscle strength and tone were normal. EXTREMITIES: No cyanosis, clubbing or edema. NEUROLOGIC: Alert and oriented to name only, intelligible responses to date and location. He knows that he lives in [place] and lives with his which is improved from yesterday. Patient following commands. Objective Labs Result Diagrams: 02/06/19 05:43 02/06/19 05:43 Labs: Laboratory Results - last 24 hr 02/06/19 02/06/19 02/06/19 05:43 05:43 05:43 WBC 4.7 RBC 4.10 L Hgb 12.9 L Hct 37.6 L MCV 91.7 MCH 31.4 MCHC 34.2 RDW 15.5 H Plt Count 196 Neut % (Auto) 54.4 Lymph % (Auto) 36.0 Harnett % (Auto) 6.5 Eos % (Auto) 2.2 Baso % (Auto) 0.9 Neut # (Auto) 2600 Lymph # (Auto) 1700 Harnett # (Auto) 300 Eos # (Auto) 100 Baso # (Auto) 0 Sodium 139 Potassium 3.6 Chloride 102 Carbon Dioxide 30 BUN 11 Creatinine 0.70 Estimated GFR > 60.0 BUN/Creatinine Ratio 15.7 Glucose 88 Calcium 9.0 Phosphorus 3.0 Magnesium 1.6 Phenytoin 34.8 H* A. baumannii (PCR) Mechelle albicans (PCR) C. glabrata (PCR) C. krusei (PCR) C. parapsilosis (PCR) C. tropicalis (PCR) Enterobacteriac sp PCR E. cloacae complex PCR Enterococcus sp PCR E. coli (PCR) H. influenzae (PCR) Klebsiella oxytoca PCR Klebsiella pneumoniae List. monocytogenes PCR N. meningitidis (PCR) Proteus species (PCR) Serratia marcescens PCR Staphylococcus sp PCR Staph aureus (PCR) mecA-Methicil Res Gene Streptococcus sp PCR Group A Strep (PCR) Strep agalactiae (PCR) Strep pneumoniae (PCR) P. aeruginosa (PCR) Jessica/B-Vanco Res Genes KPC-Carbap Res Gene PCR 02/06/19 14:39 WBC RBC Hgb Hct MCV MCH MCHC RDW Plt Count Neut % (Auto) Lymph % (Auto) Harnett % (Auto) Eos % (Auto) Baso % (Auto) Neut # (Auto) Lymph # (Auto) Harnett # (Auto) Eos # (Auto) Baso # (Auto) Sodium Potassium Chloride Carbon Dioxide BUN Creatinine Estimated GFR BUN/Creatinine Ratio Glucose Calcium Phosphorus Magnesium Phenytoin A. baumannii (PCR) Not detected Mechelle albicans (PCR) Not detected C. glabrata (PCR) Not detected C. krusei (PCR) Not detected C. parapsilosis (PCR) Not detected C. tropicalis (PCR) Not detected Enterobacteriac sp PCR Not detected E. cloacae complex PCR Not detected Enterococcus sp PCR Not detected E. coli (PCR) Not detected H. influenzae (PCR) Not detected Klebsiella oxytoca PCR Not detected Klebsiella pneumoniae Not detected List. monocytogenes PCR Not detected N. meningitidis (PCR) Not detected Proteus species (PCR) Not detected Serratia marcescens PCR Not detected Staphylococcus sp PCR Detected H Staph aureus (PCR) Not detected mecA-Methicil Res Gene Not detected Streptococcus sp PCR Not detected Group A Strep (PCR) Not detected Strep agalactiae (PCR) Not detected Strep pneumoniae (PCR) Not detected P. 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 1. Toxic metabolic encephalopathy -patient previously has been documented as Alert and oriented to person place and year. Upon my exam he was oriented only to person. The son further reports fatigue over the past 2 weeks. According to poison Control this is likely secondary to his elevated Dilantin level which was 43. CT head was unremarkable, and there is no evidence infectious etiologies at this time. He did have mild hypernatremia, however this is less likely related to his presentation. He further is on Keppra, for which a level of pending. -continue to follow Dilantin levels daily -patient used to follow with neurologist here in [place], however he has not seen this provider in over 3 years as his prior neurologist retired. He has been getting prescriptions from his primary care clinic for his seizure medications. He will likely need neurology follow-up upon discharge. - seizure precautions. -will await Keppra levels before restarting this medication - PT evaluation can start today. 2. Dilantin toxicity, present on admission - -management as noted above -ED discussed case with poison Control, and they are available for further assistance if necessary - will hold dilantin, patient will need a lower dose of Dilantin upon discharge. His neurologist has retired, and he has not reestablished care with a new neurologist. 3. Hypernatremia, present on remission, resolved. - patient was given 1L of d5W over 8 hours. Na level has improved. 4. History of seizure disorder -given Dilantin toxicity, and pending Keppra level will hold both of these medications at this time. See information above re: patient's neurologist, 5. History of CVA, chronic, stable -patient has history of 2 CVAs in the past with reported left-sided weakness. On my exam his left extremity appears equal to his right. Unclear baseline, and patient is further likely week secondary to metabolic encephalopathy as noted above. 6. HTN, chronic, present on admission, active - - continue home antihypertensives. may need to increase dosing if blood pressure remains elevated today after receiving morning medications. 7. HLD, chronic, stable - not currently on medications per home reconcilliation 8. Hypokalemia, acute, resolved - - s/p repletion 9. severe protein calorie malnutrition, present on admission, chronic. Code: Full, surrogate decision maker is patient's DVT: Lovenox Dispo: Patient admitted as inpatient. Remains encephalopathic secondary to dilantin toxicity. Pending PT recommendations Quality VTE Deep Vein Thrombosis/Pulmonary Embolism Present on Admission: No
--- NOTE | 2019-02-06 15:37 | CM.DANOTE ---
Discharge Planning/Care Management DCP: assessment: case was received for first time today, EMR reviewed and met briefly with pt. He is alert but cognitive status unclear at this point. Reviewed also prior admissions to in this year. Pt is a 73 year old male who admitted to care of hospitalist team 02/04 in the evening. Payer: Medicare and [employer]. INPT admissions status: confirmed by UR ALBARO Alvares. Pt has had several stays for Medicare rehab at [facility], last one in August 2018. He has also been under care of Martha JOYA and family. He says now he is agreeable to putting his name on the [facility] list in case of need: done/referral to Laury via vm and efax. Spoke now with pt's Fariba: [phone]. She agrees it is a good idea to have her 's name on the [facility] pending list. She also confirms that he has been home with her and their son Gee, who also resides in the home, helping in his care. She said Martha JOYA was out for awhile but not currently. P: follow as POC unfolds: anticipate PT/OT involvement when medically appropriate. SNF vs home and ? HH....IF snf: [facility]RR would be needed. DCP team will follow. It is difficult for Fariba to get to the hospital. She has the direct number for the [id number] desk. CM Discharge Assessment Start: 02/06/19 15:35 Freq: Status: Active Protocol: Document 02/06/19 15:35 ITV (Rec: 02/06/19 15:37 ITV [id number]) Discharge Planning Assessment Advance Directives? Yes: here [facility] Advance Directives on File No History Provided By Patient,Medical Record Has Patient been admitted in last 30 No days? Prior Living Arrangements Apartment/Condo Household Members spouse Type of transporation used prior to Relies on Others admit Referrals Initiated Detention Additional Comment efax and vm to August/[facility]: 02/06 in case of need: unclear at this time.
[2019-02-06 15:39] VITALS: BP 150/74; PULSE 66; RESP 18; TEMP 37; O2SAT 100
[2019-02-06 20:13] VITALS: BP 156/86; PULSE 71; RESP 20; TEMP 37.6; O2SAT 97
--- NOTE | 2019-02-06 23:41 | PC.NURSE ---
Evening Shift Note Patient did not void this shift, asleep most of shift with minimal oral intake, patient also hypertensive. MD aware, order to bladder scan patient and increase oral intake. Unable to bladder scan patient due to PACU bladder scanner with battery and staff unable to localize batteries. Bladder scan to be done by larder cook with ER bladder scanner.
[2019-02-07] VITALS (10 sets, daily range): BP systolic 132–191; BP diastolic 80–105; PULSE 62–83; RESP 16–20; TEMP 36.9–37.1; O2SAT 97–99
[2019-02-07 05:49] LABS: BUN Creatinine Ratio 18.9 (6-22); Blood Urea Nitrogen 17 mg/dL (9-20); Carbon Dioxide 33 mmol/L (22-32); Chloride 100 mmol/L (98-107); Estimated Glomerular Filt Rate > 60.0 mL/min (>60); Glucose 82 mg/dL (80-110); HEMOLYSIS < 15 (0-50); Magnesium 1.8 mg/dL (1.6-2.3); Potassium 3.7 mmol/L (3.4-5.1); Sodium 137 mmol/L (137-145)
[2019-02-07] MEDS: PANTOPRAZOLE 20 MG TABLET PO (05:51)
[2019-02-07 05:53] LABS: Add Manual Diff / Slide Review NO; Basophils Absolute Auto 0 /uL (0-100); Basophils Percent Auto 0.8 % (0-2); Eosinophils Absolute Auto 100 /uL (0-450); Eosinophils Percent Auto 1.9 % (2-4); Hematocrit 37.5 % (41-53); Hemoglobin 12.7 g/dL (13.5-17.5); Lymphocytes Absolute Auto 1600 /uL (1100-4500); Lymphocytes Percent Auto 37.1 % (25-40); Mean Corpuscular HGB Conc 33.8 % (30-36); Mean Corpuscular Hemoglobin 31.3 PG (26-34); Mean Corpuscular Volume 92.6 fL (80-100); Monocytes Absolute Auto 400 /uL (0-900); Monocytes Percent Auto 8.4 % (3-14); Neutrophils Absolute Auto 2200 /uL (1500-7000); Neutrophils Percent Auto 51.8 % (50-75); Platelet Count 192 X10^3/uL (150-400); Red Blood Cell Count 4.05 X10^6/uL (4.5-5.9); Red Cell Distribution Width 15.4 % (11.6-14.8); White Blood Cell Count 4.3 X10^3/uL (4.5-11.0)
[2019-02-07 06:02] LABS: Phenytoin / Dilantin 29.5 ug/mL (10-20)
[2019-02-07 06:04] LABS: Phosphorous 2.9 mg/dL (2.3-3.7)
--- NOTE | 2019-02-07 06:43 | PC.NURSE ---
Tried to restart his IV X2 but unsuccessful. CYLINDER HANDLER tried to RS his IV access now. LATISHA Sultana notiifed to low UOP Of 125 cc this shift. Ordered to bolus with 500 ml of NS, also notified with HTN ordered Hydralazine IV. Will implement order once IV access establish.
[2019-02-07] MEDS: SODIUM CHLORIDE 0.9% 500 ML 250 ML IV (06:50)
[2019-02-07] MEDS: HYDRALAZINE 20 MG/ML VIAL 5 MG IV (06:59)
[2019-02-07 09:03] LABS: Levetiracetam Keppra 23.9 mcg/mL (12.0-46.0)
[2019-02-07] MEDS: FELODIPINE ER 5 MG TAB 10 MG PO (09:31)
[2019-02-07] MEDS: LISINOPRIL 20 MG TABLET PO (09:31)
[2019-02-07] MEDS: SODIUM CHLORIDE 0.9% FLUSH 10 ML IV (09:32)
[2019-02-07] MEDS: FERROUS SULFATE 325 MG TABLET PO (09:32)
[2019-02-07] MEDS: FLUoxetine 10 MG CAPSULE 30 MG PO (09:32)
[2019-02-07] MEDS: ENOXAPARIN 40 MG/0.4 ML SYRINGE SUBCUT (09:32)
--- NOTE | 2019-02-07 10:11 | PT.IPTN ---
Current Diagnoses Toxic encephalopathy (02/04/19) Physical Therapy Treatment Note M2 PT-IP Current Condition Start: 02/05/19 08:23 Freq: NEEDED Status: Active Protocol: Document 02/05/19 15:00 AB (Rec: 02/05/19 16:39 AB [id number]) Physical Therapy Current Condition Current Condition Evaluation Date 02/05/19 Treatment Diagnosis toxic metabolic encephalopathy ; difficulty in walking Onset Date 02/04/19 Precautions Other Precautions Falls M3 PT-IP Subjective Start: 02/05/19 08:23 Freq: NEEDED Status: Active Protocol: Document 02/07/19 10:11 AB (Rec: 02/07/19 11:26 AB [id number]) Subjective Physical Therapy Visit Type Type Treatment Note Visit Start Time 10:11 Visit Stop Time 10:35 Total Visit Minutes 24 Number of TECHNICAL MANAGER [employer] Visits 0 Physical Therapy Visit Comments Patient Comments pt agreed to get out of bed M4 PT-IP Mobility and Gait Start: 02/05/19 08:23 Freq: NEEDED Status: Active Protocol: Document 02/07/19 10:11 AB (Rec: 02/07/19 11:26 AB [id number]) PT-Bed Mobility Assessment Supine to Sit Supine to Sit Moderate Assistance,1 Person Assistance,Head of Bed Elevated PT-Transfer Assessment Sit to and From Stand Sit to and from Stand Maximum Assistance,1 Person Assistance,Use of Upper Extremities Equipment Transfer Assistive Device Bed Rail,Front Wheeled Walker Orthotic/Prosthetic Devices or Brace: No Transfers Transfer Destination Chair,Bedside Commode Transfer Technique Stand Step Pivot Transfer Ability Level of Assist Maximum Assistance,1 Person Assistance,Use of Upper Extremities Comments Mobility Comments pt is easily distracted and requires repeated cues for redirection. BP: 158/89. pt completed supine to sit mod A and cues with HOB elevated. pt completed sit to stand from EOB max A and cues. pt continues to have increase lateral trunk leaning to the R . completed step pivot transfer using FWW max A and max cues bed to bedside commode. required assistance to weight shift. pt completed sit to stand from bedside commode max A and max cues. pt required max A to maintain standing balance using FWW. pt presents with increase forward trunk lean and R sided trunk leaning. NAC assisted pt with hygiene care and brief management. pt was able to take ~ 4 step from bedside commode to transfer to the chair using FWW max A and cues . pt with increase trunk forward flexion and lateral trunk leaning to the R requiring max A and max cues for upright posture. positioned pt on the chair. call light and table placed within reach. M5 PT-IP Objective Assessments Start: 02/05/19 08:23 Freq: NEEDED Status: Active Protocol: Document 02/05/19 15:00 AB (Rec: 02/05/19 16:39 AB [id number]) Orientation Orientation/Cognition Level of Alertness Confusional State Orientation Name,Place Safety Awareness Decreased Safety Awareness Memory Description Short Term Impaired,Lumber Straightened Impaired Gross Range of Motion Lower Extremity ROM Assessment Within Functional Limits Strength Lower Extremity Strength Assessment Bilaterally Impaired Comments Strength Comments RLE: 3+/5 LLE: 3+/5 M6 PT-IP Treatment Start: 02/05/19 08:23 Freq: NEEDED Status: Active Protocol: Document 02/06/19 11:10 AB (Rec: 02/06/19 11:58 AB [id number]) Physical Therapy Treatment Education Education Provided Safety M7 PT-IP Assessment and Plan Start: 02/05/19 08:23 Freq: NEEDED Status: Active Protocol: Document 02/07/19 10:11 AB (Rec: 02/07/19 11:26 AB [id number]) PT Summary Assessment and Plan Potential Rehabilitation Potential Good Summary Impairments Strength,Balance,Coordination, Cognition,Bed Mobility, Transfers,Gait,Activity Tolerance Progress Towards Goals Slow Progress due to Medical Issues,Slow Progress - Other Assessment Summary pt continues to require max A for all mobilities and max cues. pt will require SNF rehab to improve strength and mobility. Goals Bed Mobility Goal Standby Assistance Transfer Goal Standby Assistance,Front Wheeled Walker Gait Goal Contact Guard Assistance,Front Wheel Walker Gait Distance 50 Other Goals up/down 4 steps without rails CGA up/down 12 steps with bilateral rails CGA Days to Meet Goals 10 Frequency of Treatment Frequency Of Treatment Once a Day Treatment Plan Physical Therapy Treatment Plan Bed Mobility Training,Transfer Training,Gait Training, Therapeutic Exercise,Balance Retraining,Discharge Planning, Neuromuscular Re-ed, Coordination Retraining,Manual Therapy Recommendations To Nursing Amount of Assist Needed 2 Person Assist Discharge Recommendations PT Discharge Recommendations SNF Rehab
--- NOTE | 2019-02-07 11:32 | CM.DPC ---
Addendum entered by DEAN Link 02/07/19 13:49: ADD: SW faxed d/c summary, signed med rec, no scripts needed, [facility]RR to [facility] to review and Laury at [facility] states they can transport the pt between [id number] today. JAEL updated RN and BOOTH CASHIER. Plan: Patient to d/c to [facility] today via facility van at around 1400. DEAN Link Original Note: DCP Discharge SNF Per MD, pt is medically stable to d/c to SNF today with a lab draw in a couple days to check dilantin levels again. JAEL called [facility] admissions and confirmed they can accept pt today with labs in a couple days and will work on setting up transport time. JAEL called pt's spouse Fariba and updated on above and she confirms she is still agreeable with d/c plan to [facility] today and will be bedside by 1230 today to be present for pt's transition to SNF. JAEL met bedside with pt and explained role and updated him on above and he is more alert and oriented today and agreeable with d/c to SNF today. JAEL updated RN. Plan: JAEL to follow for return call from [facility] on transport time and to fax d/c packet to [facility] to review once available from MD. DEAN Link
--- NOTE | 2019-02-07 11:43 | P.DS_ITS ---
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 History obtained via son over the phone as he was not available at the bedside. was in the ED at the same time and is currently resting. History further obtained via chart review. Per the son, over the past few weeks he has progressed with worsening fatigue and falls. Previously, the son reports good days and bad days but states the bad days have increased in frequency. The son brought him in after this fall because he was found sleeping and has been concerned about his worsening fatigue. The son denied any fevers or chills, urinary frequency, complaints of dysuria. He has been having normal bowel movements, 2-3 per day, with no melena bright red blood. The son reports that there were no changes in the patient's medications recently. The son states th at the patient's neurologist has retired, and that the patient has not seen his new neurologist as of yet. Upon my exam the patient denied pain, he was alert and oriented only to self. In the ED, his vital signs were notable for mild hypertension, but otherwise were unremarkable. His labs were notable for I Dilantin level of 43.8, Keppra level is currently pending, lactate of 2.2, glucose of 61, and sodium of 148. The ED spoke with poison Control who stated symptoms could be consistent with D ilantin toxicity. Treatment of Dilantin toxicity is supportive care, and to continue checking Dilantin levels daily until improved. They state that this may take a few days to improve. Discharge Providers Provider Date of admission: 02/04/19 18:22 Discharge Date: 02/07/19 Consults: 02/04/19 18:44 Consult to Physical Therapy Evaluate & Treat Comment: Physician Instructions: Evaluate and Treat 02/04/19 20:01 Consult to Dietitian, Adult Routine Comment: Reason For Exam: decreased intake Discharge provider: Teo Valladares DO Summary Hospital Course Discharge Diagnosis: 1. Toxic metabolic encephalopathy, acute, present on admission, improving 2. Dilantin toxicity, present on admission - 3. Hypernatremia, present on remission, resolved. 4. History of seizure disorder, chronic 5. History of CVA, chronic, stable 6. HTN, chronic, present on admission, active - 7. HLD, chronic, stable 8. Hypokalemia, acute, resolved - 9. severe protein calorie malnutrition, present on admission, chronic. 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 1. Toxic metabolic encephalopathy -patient previously has been documented as Alert and oriented to person place and year. Upon my exam he was oriented only to person. The son further reports fatigue over the past 2 weeks. According to poison Control this is likely secondary to his elevated Dilantin level which was 43. CT head was unremarkable, and there is no evidence infectious etiologies at this time. He did have mild hypernatremia, however this is less likely related to his presentation. He further is on Keppra, which his held pending level. Keppra level was therapeutic and this medication was resumed on day of discharge. -continue to follow Dilantin levels every 3 days as an outpatient. Once in therapeutic range consider resuming at lower dose in consultation with patient's primary care provider who has been prescribing this medication recently. -patient used to follow with neurologist here in [place], however he has not seen this provider in over 3 years as his prior neurologist retired. He has been getting prescriptions from his primary care clinic for his seizure medications. He should re-establish the a new neurologist for recommendations as well. -Keppra levels were therapeutic and resumed on day of discharge. -PT evaluation recommended rehab, patient will be discharged to [facility] today. 2. Dilantin toxicity, present on admission - -management as noted above -ED discussed case with poison Control, and they are available for further assistance if necessary. - will hold dilantin upon discharge, patient will need a lower dose of Dilantin once therapeutic. His neurologist has retired, and he has not reestablished care with a new neurologist. Levels should be checked as noted above approximately every 3 days until therapeutic, given the current rate of decline in his blood levels. 3. Hypernatremia, present on remission, resolved. - patient was given 1L of d5W over 8 hours. Na level has improved. 4. History of seizure disorder -given Dilantin toxicity, this will be held upon discharge. His Keppra was resumed giving therapeutic levels on admission. See information above re: patient's neurologist and further management as an outpatient. 5. History of CVA, chronic, stable -patient has history of 2 CVAs in the past with reported left-sided weakness. On my exam his left extremity appears equal to his right. 6. HTN, chronic, present on admission, active - - continue home antihypertensives. 7. HLD, chronic, stable - not currently on medications per home reconcilliation 8. Hypokalemia, acute, resolved - - s/p repletion 9. severe protein calorie malnutrition, present on admission, chronic. Code: Full, surrogate decision maker is patient's Dispo: Transferred to [facility] Exam Vital Signs (past 8 hours): - 02/07/19 05:00 02/07/19 05:54 02/07/19 06:59 Temperature 98.7 F Pulse Rate 66 62 62 Respiratory Rate 16 Blood Pressure 191/89 H 147/80 H 147/80 H Pulse Oximetry 02/07/19 07:35 02/07/19 07:38 02/07/19 07:46 Temperature 98.8 F Pulse Rate 67 79 71 Respiratory Rate 20 Blood Pressure 184/99 H 185/105 H 178/98 H Pulse Oximetry 99 02/07/19 07:48 02/07/19 09:31 Temperature Pulse Rate 67 Respiratory Rate Blood Pressure 184/99 H 184/99 H Pulse Oximetry Oxygen Delivery Method Room Air Oxygen Flow Rate 0 Narrative Exam Narrative: GENERAL APPEARANCE: Chronically ill-appearing, thin male with some muscle wasting. Resting comfortably in hospital bed. SKIN: Inspection of the skin reveals no rashes, ulcerations or petechiae. HEENT: Dry mucous membranes, no tongue lacerations or evidence of bruising/trauma. NECK: Supple and symmetric. There was no thyroid enlargement, and no tenderness, or masses were felt. CHEST: Normal AP diameter and normal contour without any kyphoscoliosis. LUNGS: Auscultation of the lungs revealed no wheezes, rhonchi, or rales. CARDIOVASCULAR: There was a regular rate and rhythm without any murmurs, gallops, rubs. Peripheral pulses were 2+ and symmetric. ABDOMEN: Soft and nontender with normal bowel sounds. MUSCULOSKELETAL: There was no tenderness or effusions noted. Muscle strength and tone were normal. EXTREMITIES: No cyanosis, clubbing or edema. NEUROLOGIC: Alert and oriented to name only and place. Stated he does not know the year and guessed that it was May. Patient following commands. Improved cognition from yesterday's exam. Objective Labs Result Diagrams: 02/07/19 05:20 02/07/19 05:20 Labs: Laboratory Results - last 24 hr 02/04/19 02/04/19 02/04/19 13:56 13:56 13:56 WBC RBC Hgb Hct MCV MCH MCHC RDW Plt Count Neut % (Auto) Lymph % (Auto) Mellette % (Auto) Eos % (Auto) Baso % (Auto) Neut # (Auto) Lymph # (Auto) Mellette # (Auto) Eos # (Auto) Baso # (Auto) Sodium 148 H Potassium 3.7 Chloride 108 H Carbon Dioxide 29 BUN 26 H Creatinine 0.90 Estimated GFR > 60.0 BUN/Creatinine Ratio 28.9 H Glucose 61 L Calcium 9.7 Phosphorus Magnesium Total Bilirubin 0.4 AST 34 ALT 25 Alkaline Phosphatase 195 H Troponin I < 0.012 Total Protein 8.3 H Albumin 4.9 Globulin 3.4 Albumin/Globulin Ratio 1.4 TSH 0.90 Prolactin 7.7 Phenytoin Levetiracetam 23.9 Ethyl Alcohol < 10 A. baumannii (PCR) Mechelle albicans (PCR) C. glabrata (PCR) C. krusei (PCR) C. parapsilosis (PCR) C. tropicalis (PCR) Enterobacteriac sp PCR E. cloacae complex PCR Enterococcus sp PCR E. coli (PCR) H. influenzae (PCR) Klebsiella oxytoca PCR Klebsiella pneumoniae List. monocytogenes PCR N. meningitidis (PCR) Proteus species (PCR) Serratia marcescens PCR Staphylococcus sp PCR Staph aureus (PCR) mecA-Methicil Res Gene Streptococcus sp PCR Group A Strep (PCR) Strep agalactiae (PCR) Strep pneumoniae (PCR) P. aeruginosa (PCR) 02/06/19 02/07/19 02/07/19 14:39 05:20 05:20 WBC 4.3 L RBC 4.05 L Hgb 12.7 L Hct 37.5 L MCV 92.6 MCH 31.3 MCHC 33.8 RDW 15.4 H Plt Count 192 Neut % (Auto) 51.8 Lymph % (Auto) 37.1 Mellette % (Auto) 8.4 Eos % (Auto) 1.9 L Baso % (Auto) 0.8 Neut # (Auto) 2200 Lymph # (Auto) 1600 Mellette # (Auto) 400 Eos # (Auto) 100 Baso # (Auto) 0 Sodium 137 Potassium 3.7 Chloride 100 Carbon Dioxide 33 H BUN 17 Creatinine 0.90 Estimated GFR > 60.0 BUN/Creatinine Ratio 18.9 Glucose 82 Calcium 9.0 Phosphorus 2.9 Magnesium 1.8 Total Bilirubin AST ALT Alkaline Phosphatase Troponin I Total Protein Albumin Globulin Albumin/Globulin Ratio TSH Prolactin Phenytoin Levetiracetam Ethyl Alcohol A. baumannii (PCR) Not detected Mechelle albicans (PCR) Not detected C. glabrata (PCR) Not detected C. krusei (PCR) Not detected C. parapsilosis (PCR) Not detected C. tropicalis (PCR) Not detected Enterobacteriac sp PCR Not detected E. cloacae complex PCR Not detected Enterococcus sp PCR Not detected E. coli (PCR) Not detected H. influenzae (PCR) Not detected Klebsiella oxytoca PCR Not detected Klebsiella pneumoniae Not detected List. monocytogenes PCR Not detected N. meningitidis (PCR) Not detected Proteus species (PCR) Not detected Serratia marcescens PCR Not detected Staphylococcus sp PCR Detected H Staph aureus (PCR) Not detected mecA-Methicil Res Gene Not detected Streptococcus sp PCR Not detected Group A Strep (PCR) Not detected Strep agalactiae (PCR) Not detected Strep pneumoniae (PCR) Not detected P. aeruginosa (PCR) Not detected 02/07/19 05:20 WBC RBC Hgb Hct MCV MCH MCHC RDW Plt Count Neut % (Auto) Lymph % (Auto) Mellette % (Auto) Eos % (Auto) Baso % (Auto) Neut # (Auto) Lymph # (Auto) Mellette # (Auto) Eos # (Auto) Baso # (Auto) Sodium Potassium Chloride Carbon Dioxide BUN Creatinine Estimated GFR BUN/Creatinine Ratio Glucose Calcium Phosphorus Magnesium Total Bilirubin AST ALT Alkaline Phosphatase Troponin I Total Protein Albumin Globulin Albumin/Globulin Ratio TSH Prolactin Phenytoin 29.5 H D Levetiracetam Ethyl Alcohol A. baumannii (PCR) Mechelle albicans (PCR) C. glabrata (PCR) C. krusei (PCR) C. parapsilosis (PCR) C. tropicalis (PCR) Enterobacteriac sp PCR E. cloacae complex PCR Enterococcus sp PCR E. coli (PCR) H. influenzae (PCR) Klebsiella oxytoca PCR Klebsiella pneumoniae List. monocytogenes PCR N. meningitidis (PCR) Proteus species (PCR) Serratia marcescens PCR Staphylococcus sp PCR Staph aureus (PCR) mecA-Methicil Res Gene Streptococcus sp PCR Group A Strep (PCR) Strep agalactiae (PCR) Strep pneumoniae (PCR) P. 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 1. Toxic metabolic encephalopathy -patient previously has been documented as Alert and oriented to person place and year. Upon my exam he was oriented only to person. The son further reports fatigue over the past 2 weeks. According to poison Control this is likely secondary to his elevated Dilantin level which was 43. CT head was unremarkable, and there is no evidence infectious etiologies at this time. He did have mild hypernatremia, however this is less likely related to his presentation. He further is on Keppra, which his held pending level. Keppra level was therapeutic and this medication was resumed on day of discharge. -continue to follow Dilantin levels every 3 days as an outpatient. Once in therapeutic range consider resuming at lower dose in consultation with patient's primary care provider who has been prescribing this medication recently. -patient used to follow with neurologist here in [place], however he has not seen this provider in over 3 years as his prior neurologist retired. He has been getting prescriptions from his primary care clinic for his seizure medications. He should re-establish the a new neurologist for recommendations as well. -Keppra levels were therapeutic and resumed on day of discharge. -PT evaluation recommended rehab, patient will be discharged to [facility] today. 2. Dilantin toxicity, present on admission - -management as noted above -ED discussed case with poison Control, and they are available for further assistance if necessary. - will hold dilantin upon discharge, patient will need a lower dose of Dilantin once therapeutic. His neurologist has retired, and he has not reestablished care with a new neurologist. Levels should be checked as noted above approximately every 3 days until therapeutic, given the current rate of decline in his blood levels. 3. Hypernatremia, present on remission, resolved. - patient was given 1L of d5W over 8 hours. Na level has improved. 4. History of seizure disorder -given Dilantin toxicity, this will be held upon discharge. His Keppra was resumed giving therapeutic levels on admission. See information above re: patient's neurologist and further management as an outpatient. 5. History of CVA, chronic, stable -patient has history of 2 CVAs in the past with reported left-sided weakness. On my exam his left extremity appears equal to his right. 6. HTN, chronic, present on admission, active - - continue home antihypertensives. 7. HLD, chronic, stable - not currently on medications per home reconcilliation 8. Hypokalemia, acute, resolved - - s/p repletion 9. severe protein calorie malnutrition, present on admission, chronic. Code: Full, surrogate decision maker is patient's Dispo: Transferred to [facility] Discharge Med Rec/Prescriptions Prescriptions: Continued omeprazole 20 MG tablet,delayed release (DR/EC) 20 mg PO DAILY Qty: 0 RF: 0 loratadine 10 MG tablet 10 mg PO DAILY PRN (Reason: Allergy Symptoms) RF: 0 mirtazapine 30 MG tablet 30 mg PO BEDTIME RF: 0 levetiracetam 500 mg tablet 500 mg PO BID RF: 0 lisinopril 20 mg tablet 20 mg PO DAILY RF: 0 fluoxetine 10 mg capsule 30 mg PO DAILY RF: 0 felodipine 10 mg tablet extended release 24 hr 10 mg PO DAILY RF: 0 ferrous sulfate 324 mg (65 mg iron) tablet,delayed release (DR/EC) 1 tab PO DAILY RF: 0 Disabled Parking Permit 1 ea miscellaneous DIRECTED RF: 0 Discontinued phenytoin sodium extended 100 mg capsule 100 mg PO BID RF: 0 Discharge Health Status Brief summary of current health status: The patient is a 73-year-old male with PMHx of HTN, HLD, 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 1. Toxic metabolic encephalopathy -patient previously has been documented as Alert and oriented to person place and year. Upon my exam he was oriented only to person. The son further reports fatigue over the past 2 weeks. According to poison Control this is likely secondary to his elevated Dilantin level which was 43. CT head was unremarkable, and there is no evidence infectious etiologies at this time. He did have mild hypernatremia, however this is less likely related to his presentation. He further is on Keppra, which his held pending level. Keppra level was therapeutic and this medication was resumed on day of discharge. -continue to follow Dilantin levels every 3 days as an outpatient. Once in therapeutic range consider resuming at lower dose in consultation with patient's primary care provider who has been prescribing this medication recently. -patient used to follow with neurologist here in [place], however he has not seen this provider in over 3 years as his prior neurologist retired. He has been getting prescriptions from his primary care clinic for his seizure medications. He should re-establish the a new neurologist for recommendations as well. -Keppra levels were therapeutic and resumed on day of discharge. -PT evaluation recommended rehab, patient will be discharged to [facility] today. 2. Dilantin toxicity, present on admission - -management as noted above -ED discussed case with poison Control, and they are available for further assistance if necessary. - will hold dilantin upon discharge, patient will need a lower dose of Dilantin once therapeutic. His neurologist has retired, and he has not reestablished car e with a new neurologist. Levels should be checked as noted above approximately every 3 days until therapeutic, given the current rate of decline in his blood levels. 3. Hypernatremia, present on remission, resolved. - patient was given 1L of d5W over 8 hours. Na level has improved. 4. History of seizure disorder -given Dilantin toxicity, this will be held upon discharge. His Keppra was resumed giving therapeutic levels on admission. See information above re: patient's neurologist and further management as an outpatient. 5. History of CVA, chronic, stable -patient has history of 2 CVAs in the past with reported left-sided weakness. On my exam his left extremity appears equal to his right. 6. HTN, chronic, present on admission, active - - continue home antihypertensives. 7. HLD, chronic, stable - not currently on medications per home reconcilliation 8. Hypokalemia, acute, resolved - - s/p repletion 9. severe protein calorie malnutrition, present on admission, chronic. Code: Full, surrogate decision maker is patient's Dispo: Transferred to [facility] Precautions: [place] Provider Discharge Instructions Diet: Diet as Tolerated Activity: As tolerated [facility] Rehab type: Physical therapy Quality VTE Deep Vein Thrombosis/Pulmonary Embolism Present on Admission: No
--- NOTE | 2019-02-07 12:04 | PC.NURSE ---
Pt sitting up in bed eating lunch. Transferred back to bed with a 2 person assist. Spouse informed of transfer to [facility]. Report called to [facility] and Spoke with Grace-gave full Pt status and answered all questions. Grace denies further questions and will be ready to transfer to [facility] at 1400.
--- NOTE | 2019-02-07 14:40 | PC.NURSE ---
Pt out via w/c by [facility] transport with Spouse, packet and all belongings.
--- NOTE | 2019-02-07 18:08 | PC.NURSE ---
Rec call from Jamel with Poison Control. She was notified pt has been d/c'd to [facility]. She requested toxicology and renal lab values. Information provided.
== END 2019-02-07 14:39 | DRG 91 ==
LOC: ED 18:11 → AC 18:23
PROVIDERS: Admitting Provider Internal Medicine; Emergency Provider Emergency Medicine; Visit Provider Internal Medicine
DX: G92 Toxic encephalopathy (principal); E43 Unspecified severe protein-calorie malnutrition; E87.0 Hyperosmolality and hypernatremia; I69.354 Hemiplegia and hemiparesis following cerebral infarction affecting left non-dominant side; Z68.1 Body mass index [BMI] 19.9 or less, adult; I67.89 Other cerebrovascular disease; T42.0X5A Adverse effect of hydantoin derivatives, initial encounter; E16.2 Hypoglycemia, unspecified; G40.909 Epilepsy, unspecified, not intractable, without status epilepticus; I10 Essential (primary) hypertension; E78.5 Hyperlipidemia, unspecified
CPT/HCPCS: 36415; 36600; 70450; 71045; 80048; 80053; 80177; 80185; 80320; 80329; 81003; 82140; 82805; 82962; 83605; 83735; 84100; 84146; 84443; 84484; 85025; 85610; 85730; 87040; 87077; 87147; 87150; 87205; 93005; 93010; 96360; 96361; 97162; 97530; 99284; 99285; G0480; J0360; J1650

== ENCOUNTER 2020-11-11 14:26 | Emergency (ER) | payer MEDICARE, OTHER, SELFPAY ==
[2019-02-04 19:54] VITALS: BMI 16.6
[2020-11-11] VITALS (8 sets, daily range): BP systolic 146–179; BP diastolic 67–80; PULSE 57–72; RESP 9–18; TEMP 36.8; O2SAT 97–100; BMI 22.0
--- NOTE | 2020-11-11 14:56 | DI.CT.S_ITS ---
PROCEDURE: CT HEAD/BRAIN WO CON INDICATIONS: neuro changes/weakness/slurred speech TECHNIQUE: Noncontrast 4.5 mm thick angled axial sections acquired from the foramen magnum to the vertex, with coronal and sagittal reformats. For radiation dose reduction, the following was used: automated exposure control, adjustment of mA and/or kV according to patient size. COMPARISON: [facility], MR, MR STROKE, 09/02/2018, 14:12. [facility], CT, CT HEAD/BRAIN WO CON, 02/04/2019, 14:10. FINDINGS: Image quality: Excellent. CSF spaces: Basal cisterns are patent. No extra-axial fluid collections. The ventricles are symmetric in size and shape. Brain: No intracranial bleeds or masses. There is cerebral volume loss for age, with resultant ventricular and sulcal prominence. There are periventricular and deep white matter chronic small vessel ischemic changes. There is intracranial internal carotid artery atherosclerosis. Skull and face: Calvarium and visualized facial bones appear intact, without suspicious lesions. Sinuses: Visualized sinuses and mastoids are clear. IMPRESSION: No acute abnormality can be seen on this noncontrast head CT. If there is strong clinical suspicion for an acute stroke, please consider a brain MRI for further evaluation, as it is more sensitive (assuming that there is no contraindication to MRI). Note is made of age-appropriate brain parenchymal volume loss and chronic small vessel ischemic changes. Dictated by: Joni Saez M.D. on 11/11/2020 at 14:09 Approved by: Joni Saez M.D. on 11/11/2020 at 14:10
--- NOTE | 2020-11-11 14:56 | DI.RAD.S_ITS ---
PROCEDURE: XR CHEST 1V INDICATIONS: Possible stroke TECHNIQUE: One view of the chest was acquired. COMPARISON: [facility], CR, XR CHEST 1V, 02/04/2019, 14:10. FINDINGS: Surgical changes and devices: None. Lungs and pleura: Scattered subsegmental scarring and/or atelectasis. No acute consolidation. No pleural effusions or pneumothorax. Mediastinum: Mediastinal contours appear normal. Heart size is normal. Bones and chest wall: No suspicious bony lesions. Overlying soft tissues appear unremarkable. IMPRESSION: No acute disease. Dictated by: Fabricio Chahal M.D. on 11/11/2020 at 15:28 Approved by: Fabricio Chahal M.D. on 11/11/2020 at 15:29
[2020-11-11 15:08] LABS: Add Manual Diff / Slide Review NO; Basophils Absolute Auto 0 /uL (0-100); Basophils Percent Auto 0.5 % (0-2); Eosinophils Absolute Auto 100 /uL (0-450); Eosinophils Percent Auto 2.2 % (2-4); Hematocrit 39.8 % (41-53); Hemoglobin 13.1 g/dL (13.5-17.5); Lymphocytes Absolute Auto 2200 /uL (1100-4500); Lymphocytes Percent Auto 37.3 % (25-40); Mean Corpuscular Hemoglobin 30.4 PG (26-34); Mean Corpuscular Volume 92.3 fL (80-100); Monocytes Absolute Auto 500 /uL (0-900); Monocytes Percent Auto 8.1 % (3-14); Neutrophils Absolute Auto 3100 /uL (1500-7000); Neutrophils Percent Auto 51.9 % (50-75); Platelet Count 169 X10^3/uL (150-400); Red Blood Cell Count 4.31 X10^6/uL (4.5-5.9); Red Cell Distribution Width 14.8 % (11.6-14.8); White Blood Cell Count 5.9 X10^3/uL (4.5-11.0)
[2020-11-11 15:12] LABS: INR 1.1 (0.9-1.3)
[2020-11-11 15:14] LABS: PTT Partial Thromboplastin Tim 35 SECONDS (26.4-36.2)
[2020-11-11 15:16] LABS: Lactate (Lactic Acid) 1.5 mmol/L (0.7-2.1)
[2020-11-11 15:18] LABS: Alanine Aminotransferase 20 IU/L (<50); Albumin Globulin Ratio 1.3 (1.0-2.8); Alkaline Phosphatase 132 U/L (38-126); Aspartate Aminotransferase 26 IU/L (17-59); BUN Creatinine Ratio 31.5 (6-22); Bilirubin Total 0.2 mg/dL (0.2-1.3); Blood Urea Nitrogen 28 mg/dL (9-20); Calcium 9.5 mg/dL (8.4-10.2); Carbon Dioxide 28 mmol/L (22-32); Chloride 108 mmol/L (98-107); Creatine Kinase 76 U/L (55-170); Estimated Glomerular Filt Rate > 60.0 mL/min (>60); Globulin 3.2 g/dL (1.7-4.1); Glucose 100 mg/dL (80-110); HEMOLYSIS 24 (0-50); Potassium 3.8 mmol/L (3.4-5.1); Sodium 144 mmol/L (137-145); Total Protein 7.2 g/dL (6.3-8.2)
[2020-11-11 15:29] LABS: Troponin I < 0.012 ng/mL (0.01-0.034)
--- NOTE | 2020-11-11 15:44 | ED.GENADULT ---
HPI - General Adult General Chief complaint: Weakness Stated complaint: Low Blood Count, Slurred Speech Time Seen by Provider: 11/11/20 14:47 History of Present Illness HPI narrative: Patient is a 75-year-old male. Is here with his for evaluation of which is that is least stated as a low blood count and slurred speech. Upon further evaluation which she means by this is that when the patient has had presenting symptoms likely he is having now his Dilantin level was either high or low. Patient has a history of a CVA. Also has a history of seizures. He is on Dilantin and Keppra. He has had elevations in his Dilantin level in the past. This was why he was seen here in this emergency department in the past. At that point was lower to 130 mg a day. Since that time and has been increased to 160 mg a day by his primary doctor. They had labs drawn earlier this week to continue to monitor his Dilantin level but they have not heard back from the primary doctor. There was some discussion about increasing it to 190 mg a day. Patient's states that he has periods of time when he is more alert and times when he is confused. She also thought that this morning he was slightly more confused than normal and is also potentially slurring his words but that has all completely resolved. Patient has no symptoms. Related Data Home Medications Medication Instructions Recorded Confirmed omeprazole 20 mg tablet,delayed 20 mg PO DAILY #0 11/13/16 02/04/19 release Disabled Parking Permit 1 ea MISCELLANEOUS DIRECTED 12/25/17 02/04/19 felodipine 10 mg tablet,extended 10 mg PO DAILY 12/25/17 02/04/19 release 24 hr ferrous sulfate 324 mg (65 mg 1 tab PO DAILY 12/25/17 02/04/19 iron) tablet,delayed release fluoxetine 10 mg capsule 30 mg PO DAILY 12/25/17 02/04/19 levetiracetam 500 mg tablet 500 mg PO BID 12/25/17 02/04/19 lisinopril 20 mg tablet 20 mg PO DAILY 12/25/17 02/04/19 loratadine 10 mg tablet 10 mg PO DAILY PRN 12/25/17 02/04/19 mirtazapine 30 mg tablet 30 mg PO BEDTIME 12/25/17 02/04/19 Allergies Allergy/AdvReac Type Severity Reaction Status Date / Time vancomycin [VANCOMYCIN] Allergy Unknown VANCO Verified 02/04/19 13:30 ALLERGY ON SNF FACE SHEET Review of Systems Constitutional Constitutional: Reports system reviewed and no additional complaints, except as documented Cardiovascular Cardiovascular: Reports system reviewed and no additional complaints, except as documented Respiratory Respiratory: Reports system reviewed and no additional complaints, except as documented Gastrointestinal Gastrointestinal: Reports system reviewed and no additional complaints, except as documented Musculoskeletal Musculoskeletal: Reports system reviewed and no additional complaints, except as documented Integumentary/Breasts Skin/Breast: Reports system reviewed and no additional complaints, except as documented Neurologic Neurologic: Reports as per HPI Psychiatric Psychiatric: Reports system reviewed and no additional complaints, except as documented Hematologic/Lymphatic On Anticoagulants: No Patient History Medical History CVA, old, alterations of sensations History of small bowel obstruction Hypertension Iron deficiency anemia Seizure disorder Surgical History History of appendectomy History of bowel resection History of colonoscopy with polypectomy Family History Father Cancer Social History household members: spouse Smoking Status: Former smoker alcohol intake: never Smoking Status: Former smoker Substance Use Type: does not use Exam Initial Vital Signs Initial Vital Signs: Vital Signs Temperature 98.3 F 11/11/20 14:44 Pulse Rate 70 11/11/20 14:44 Respiratory Rate 18 11/11/20 14:44 Blood Pressure 152/72 H 11/11/20 14:44 Pulse Oximetry 99 11/11/20 14:44 Const General: cooperative, comfortable and well developed [facility] Head: normal to inspection and normocephalic Eyes General: appearance normal, both eyes and all related structures Chest Chest: normal inspection of the chest Resp Effort & Inspection: normal respiratory effort Auscultation: clear to auscultation bilaterally Cardio Rate: regular rate Rhythm: regular rhythm GI Inspection: normal to inspection Skin General: no rashes or lesions noted Neuro General: patient alert, patient awake and moves all extremities Cranial Nerves: CN's II-XI intact bilaterally Speech: speech normal Gait: normal gait Motor: muscle tone normal throughout Sensory Exam: no sensory deficits noted Extrem General: normal to inspection and capillary refill normal Psych Appearance: grossly normal and well kempt Course Orders Ordered: ED Orders 11/11/20 14:51 COVID19 - ADMIT (MAPPING ANALYST swab/PCR) Stat Complete Blood Count AUTO DIFF Stat Comprehensive Metabolic Panel Stat Lactate (Lactic Acid) Stat Partial Thromboplastin Time Stat Phenytoin / Dilantin Stat Prothrombin Time INR Stat Troponin & CK Cardiac Panel Stat 11/11/20 14:56 CT head/brain wo con Stat XR chest 1V Stat 11/11/20 15:25 EKG-12 Lead Stat Vital Signs Vital signs: Vital Signs - 8 hr 11/11/20 14:44 11/11/20 14:46 11/11/20 15:00 Temperature 98.3 F Pulse Rate 70 72 Respiratory Rate 18 14 Blood Pressure 152/72 H Pulse Oximetry 99 98 97 11/11/20 15:10 11/11/20 15:30 11/11/20 16:00 Temperature Pulse Rate 66 64 63 Respiratory Rate 12 11 L 13 Blood Pressure 158/72 H 146/67 H 161/80 H Pulse Oximetry 98 97 100 11/11/20 16:30 11/11/20 17:00 Temperature Pulse Rate 63 57 L Respiratory Rate 12 9 L Blood Pressure 162/79 H 179/80 H Pulse Oximetry 99 99 Medical Decision Making Medical Records Medical records reviewed: Yes I reviewed the patient's medical records. Lab Data Lab results reviewed: Yes I reviewed the patient's lab results. Result diagrams: 11/11/20 14:51 11/11/20 14:51 Labs: Lab Results 11/11/20 11/11/20 11/11/20 Range/Units 14:51 14:51 14:51 WBC 5.9 (4.5-11.0) X10^3/uL RBC 4.31 L (4.5-5.9) X10^6/uL Hgb 13.1 L (13.5-17.5) g/dL Hct 39.8 L (41-53) % MCV 92.3 (80-100) fL MCH 30.4 (26-34) PG MCHC 33.0 (30-36) % RDW 14.8 (11.6-14.8) % Plt Count 169 (150-400) X10^3/uL Neut % (Auto) 51.9 (50-75) % Lymph % (Auto) 37.3 (25-40) % Garland % (Auto) 8.1 (3-14) % Eos % (Auto) 2.2 (2-4) % Baso % (Auto) 0.5 (0-2) % Neut # (Auto) 3100 (3398-9325) /uL Lymph # (Auto) 2200 (5150-4863) /uL Garland # (Auto) 500 (0-900) /uL Eos # (Auto) 100 (0-450) /uL Baso # (Auto) 0 (0-100) /uL PT 12.0 (10.1-12.7) SECONDS INR 1.1 (0.9-1.3) APTT 35 (26.4-36.2) SECONDS Sodium 144 (137-145) mmol/L Potassium 3.8 (3.4-5.1) mmol/L Chloride 108 H (98-107) mmol/L Carbon Dioxide 28 (22-32) mmol/L BUN 28 H (9-20) mg/dL Creatinine 0.89 (0.66-1.25) mg/dL Estimated GFR > 60.0 (>60) mL/min BUN/Creatinine Ratio 31.5 H (6-22) Glucose 100 (80-110) mg/dL Lactate (0.7-2.1) mmol/L Calcium 9.5 (8.4-10.2) mg/dL Total Bilirubin 0.2 (0.2-1.3) mg/dL AST 26 (17-59) IU/L ALT 20 (<50) IU/L Alkaline Phosphatase 132 H (38-126) U/L Total Creatine Kinase 76 (55-170) U/L CK-MB (CK-2) TNP CK-MB (CK-2) Rel Index TNP Troponin I < 0.012 (0.01-0.034) ng/mL Total Protein 7.2 (6.3-8.2) g/dL Albumin 4.0 (3.5-5.0) g/dL Globulin 3.2 (1.7-4.1) g/dL Albumin/Globulin Ratio 1.3 (1.0-2.8) Phenytoin (10-20) ug/mL SARS-CoV-2 (PCR) (Negative) 11/11/20 11/11/20 11/11/20 Range/Units 14:51 14:51 14:51 WBC (4.5-11.0) X10^3/uL RBC (4.5-5.9) X10^6/uL Hgb (13.5-17.5) g/dL Hct (41-53) % MCV (80-100) fL MCH (26-34) PG MCHC (30-36) % RDW (11.6-14.8) % Plt Count (150-400) X10^3/uL Neut % (Auto) (50-75) % Lymph % (Auto) (25-40) % Garland % (Auto) (3-14) % Eos % (Auto) (2-4) % Baso % (Auto) (0-2) % Neut # (Auto) (0591-3775) /uL Lymph # (Auto) (8896-3369) /uL Garland # (Auto) (0-900) /uL Eos # (Auto) (0-450) /uL Baso # (Auto) (0-100) /uL PT (10.1-12.7) SECONDS INR (0.9-1.3) APTT (26.4-36.2) SECONDS Sodium (137-145) mmol/L Potassium (3.4-5.1) mmol/L Chloride (98-107) mmol/L Carbon Dioxide (22-32) mmol/L BUN (9-20) mg/dL Creatinine (0.66-1.25) mg/dL Estimated GFR (>60) mL/min BUN/Creatinine Ratio (6-22) Glucose (80-110) mg/dL Lactate 1.5 (0.7-2.1) mmol/L Calcium (8.4-10.2) mg/dL Total Bilirubin (0.2-1.3) mg/dL AST (17-59) IU/L ALT (<50) IU/L Alkaline Phosphatase (38-126) U/L Total Creatine Kinase (55-170) U/L CK-MB (CK-2) CK-MB (CK-2) Rel Index Troponin I (0.01-0.034) ng/mL Total Protein (6.3-8.2) g/dL Albumin (3.5-5.0) g/dL Globulin (1.7-4.1) g/dL Albumin/Globulin Ratio (1.0-2.8) Phenytoin 9.8 L (10-20) ug/mL SARS-CoV-2 (PCR) Negative (Negative) ECG Data Attestation: I personally reviewed and interpreted this ECG as follows: Interpretation: Sinus rhythm Ventricular rate is 65 Occasional PACs Normal QRS Normal QTC No ST T wave changes MDM Narrative Medical decision making narrative: Patient is somewhat confused but he is at his baseline per his . He has no signs of any active seizure/postictal state. His Dilantin level was slightly low today. Final be is to increase this to 160 mg. Will also have them contact his primary doctor for follow-up. I have low suspicion for CVA. Low suspicion for TIA given his presentation. Patient and her given strict return precautions and follow-up instructions. They expressed understanding and agreement. Discharge Plan Departure Patient Disposition: Home Clinical Impression: Confusion Activity Restrictions/Additional Instructions: Your Dilantin/pending told level today is 9.8. This is just below therapeutic level. I recommend that you increase this to 190 mg at night. I also recommend that tomorrow you contact your primary doctor for a follow-up in to discuss further testing. Please return to the emergency department for any new or worsening symptoms Prescriptions: No Action omeprazole 20 MG tablet,delayed release (DR/EC) 20 mg PO DAILY Qty: 0 RF: 0 loratadine 10 MG tablet 10 mg PO DAILY PRN (Reason: Allergy Symptoms) RF: 0 mirtazapine 30 MG tablet 30 mg PO BEDTIME RF: 0 levetiracetam 500 mg tablet 500 mg PO BID RF: 0 lisinopril 20 mg tablet 20 mg PO DAILY RF: 0 fluoxetine 10 mg capsule 30 mg PO DAILY RF: 0 felodipine 10 mg tablet extended release 24 hr 10 mg PO DAILY RF: 0 ferrous sulfate 324 mg (65 mg iron) tablet,delayed release (DR/EC) 1 tab PO DAILY RF: 0 Disabled Parking Permit 1 ea miscellaneous DIRECTED RF: 0 Referrals: Gemini Nix MD [Primary Care Provider] -
[2020-11-11 16:04] LABS: Phenytoin / Dilantin 9.8 ug/mL (10-20)
[2020-11-11 17:33] LABS: COVID19 - ADMIT (NP swab/PCR) Negative (Negative)
== END 2020-11-11 17:30 | disposition home or self-care (01) ==
PROVIDERS: Emergency Provider Emergency Medicine; PCP Internal Medicine
DX: R41.0 Disorientation, unspecified (principal); R47.81 Slurred speech; Z20.822 Contact with and (suspected) exposure to COVID-19
CPT/HCPCS: 36415; 70450; 71045; 80053; 80185; 82550; 83605; 84484; 85025; 85610; 85730; 87635; 93005; 99283; 99284; C9803

== ENCOUNTER 2020-12-07 12:19 | Emergency (ER) | payer MEDICARE, OTHER, SELFPAY ==
[2019-02-04 19:54] VITALS: BMI 16.6
[2020-12-07] VITALS (11 sets, daily range): BP systolic 120–195; BP diastolic 59–90; PULSE 59–67; RESP 9–18; TEMP 37.2; O2SAT 95–99
--- NOTE | 2020-12-07 12:38 | DI.RAD.S_ITS ---
PROCEDURE: XR CHEST 1V INDICATIONS: chest pain TECHNIQUE: One view of the chest was acquired. COMPARISON: [facility], CR, XR CHEST 1V, 11/11/2020, 14:59. FINDINGS: Surgical changes and devices: None. Lungs and pleura: Lungs are clear. No pleural effusions or pneumothorax. Mediastinum: Tortuous thoracic aorta is seen. Calcified lymph nodes are again seen in right upper mediastinum. Heart size is normal. Bones and chest wall: No suspicious bony lesions. Overlying soft tissues appear unremarkable. IMPRESSION: No acute cardiopulmonary pathology. Dictated by: Diego Connolly M.D. on 12/07/2020 at 12:58 Approved by: Diego Connolly M.D. on 12/07/2020 at 12:59
--- NOTE | 2020-12-07 13:12 | DI.CT.S_ITS ---
PROCEDURE: CT CERVICAL SPINE WO CON INDICATIONS: multiple falls with slurred speech TECHNIQUE: Noncontrast 3 mm thick sections acquired from the skull base to the T4 level. Sagittal and coronal reformats were then constructed. For radiation dose reduction, the following was used: automated exposure control, adjustment of mA and/or kV according to patient size. COMPARISON: [facility], CT, C-SPINE WITHOUT CONTRAST, 07/15/2013, 12:12. FINDINGS: Image quality: Excellent. Bones: No acute fractures or dislocations. There is reversal of normal upper cervical spine curvature. Chronic appearing T4 and T5 anterior column compression deformities noted. Spine degenerative disc disease and facet arthropathy. Visualized superior ribs are intact. Soft tissues: Prevertebral soft tissues are normal in thickness. No paravertebral hematomas. No apical pneumothoraces. Emphysematous changes noted in the lungs bilaterally. IMPRESSION: No acute fracture. No acute osseous lesion. If symptoms and/or clinical suspicion for pathology persists, evaluation with MRI should be considered for further assessment. Dictated by: Taylor Monson MD, PhD on 12/07/2020 at 13:38 Approved by: Taylor Monson MD, PhD on 12/07/2020 at 13:44
--- NOTE | 2020-12-07 13:12 | DI.CT.S_ITS ---
PROCEDURE: CT HEAD/BRAIN WO CON INDICATIONS: multiple falls with slurred speech TECHNIQUE: Noncontrast 4.5 mm thick angled axial sections acquired from the foramen magnum to the vertex, with coronal and sagittal reformats. For radiation dose reduction, the following was used: automated exposure control, adjustment of mA and/or kV according to patient size. COMPARISON: [facility], MR, MR STROKE, 09/02/2018, 14:12. [facility], CT, CT HEAD/BRAIN WO CON, 09/02/2018, 0:35. [facility], CT, CT HEAD/BRAIN WO CON, 02/04/2019, 14:10. FINDINGS: Image quality: Excellent. CSF spaces: Basal cisterns are patent. No extra-axial fluid collections. The ventricles are symmetric in size and shape. Brain: No intracranial bleeds or masses. There is cerebral volume loss for age, with resultant ventricular and sulcal prominence. There are periventricular and deep white matter chronic small vessel ischemic changes. Chronic left cerebellar hemisphere infarct. There is intracranial internal carotid artery atherosclerosis. Skull and face: Calvarium and visualized facial bones appear intact, without suspicious lesions. Sinuses: Visualized sinuses and mastoids are clear. IMPRESSION: No acute intracranial disease process. Dictated by: Taylor Monson MD, PhD on 12/07/2020 at 13:35 Approved by: Taylor Monson MD, PhD on 12/07/2020 at 13:38
[2020-12-07 13:15] LABS: INR 1.1 (0.9-1.3); Prothrombin Time 12.3 SECONDS (10.1-12.7)
[2020-12-07 13:18] LABS: PTT Partial Thromboplastin Tim 33 SECONDS (26.4-36.2)
[2020-12-07 13:19] LABS: Add Manual Diff / Slide Review NO; Basophils Absolute Auto 0 /uL (0-100); Basophils Percent Auto 0.5 % (0-2); Eosinophils Absolute Auto 100 /uL (0-450); Eosinophils Percent Auto 0.8 % (2-4); Hematocrit 43.1 % (41-53); Hemoglobin 14.2 g/dL (13.5-17.5); Lymphocytes Absolute Auto 1600 /uL (1100-4500); Lymphocytes Percent Auto 22.7 % (25-40); Mean Corpuscular Hemoglobin 30.9 PG (26-34); Mean Corpuscular Volume 93.6 fL (80-100); Monocytes Absolute Auto 600 /uL (0-900); Monocytes Percent Auto 8.5 % (3-14); Neutrophils Absolute Auto 4800 /uL (1500-7000); Neutrophils Percent Auto 67.5 % (50-75); Platelet Count 180 X10^3/uL (150-400); Red Cell Distribution Width 14.9 % (11.6-14.8); White Blood Cell Count 7.2 X10^3/uL (4.5-11.0)
[2020-12-07 13:20] LABS: Alanine Aminotransferase 26 IU/L (<50); Albumin 4.6 g/dL (3.5-5.0); Albumin Globulin Ratio 1.3 (1.0-2.8); Alkaline Phosphatase 144 U/L (38-126); Aspartate Aminotransferase 38 IU/L (17-59); BUN Creatinine Ratio 34.1 (6-22); Bilirubin Total 0.5 mg/dL (0.2-1.3); Blood Urea Nitrogen 30 mg/dL (9-20); Calcium 9.5 mg/dL (8.4-10.2); Carbon Dioxide 30 mmol/L (22-32); Chloride 109 mmol/L (98-107); Creatine Kinase 149 U/L (55-170); Estimated Glomerular Filt Rate > 60.0 mL/min (>60); Globulin 3.6 g/dL (1.7-4.1); Glucose 100 mg/dL (80-110); HEMOLYSIS 116 (0-50); Lipase 27 U/L (23-300); Potassium 4.3 mmol/L (3.4-5.1); Sodium 148 mmol/L (137-145); Total Protein 8.2 g/dL (6.3-8.2)
[2020-12-07 13:23] LABS: Lactate (Lactic Acid) 2.6 mmol/L (0.7-2.1)
[2020-12-07 13:31] LABS: Troponin I 0.032 ng/mL (0.01-0.034)
[2020-12-07 13:47] LABS: Phenytoin / Dilantin 24.6 ug/mL (10-20)
--- NOTE | 2020-12-07 14:14 | CM.SWNOTE ---
CARPENTER ASSISTANT INSTALLER Note CARPENTER ASSISTANT INSTALLER receives consult and enters room to meet with patient and Fariba. Patient is 75 y/o male who presents to the ED with concern for slurred speech and back pain after recent GLF. Patient has hx of seizures and CVA. Patient presents as drowsy and falls in and out of sleep while CARPENTER ASSISTANT INSTALLER is in room. Patient endorses he is fine, patient is alert and oriented to self and place. Patient's Fariba endorses patient's history of stroke and seizures and endorses that patient was in acute care for a few days last year and spent a few months at [facility] (now [facility] rehab). Patient endorses patient has been to SNF rehab another time as well and patient has been referred HH twice before as well with [facility] and [facility] . Fariba endorses that patient's son resides with them and she and son support patient with ADLs. CARPENTER ASSISTANT INSTALLER discusses caregivers as a long chain dyeing machine operator option and discusses contacting [facility] to see if patient qualifies for Medicaid. Patient has Medicare and for Life insurance. CARPENTER ASSISTANT INSTALLER provides patient and with senior resource guide. Fariba endorses that patient uses a walker at home but is experiencing memory loss and forgets to move his feet. Fariba is requesting HH assistance for PT and home health aide at home. Patient endorses no preference to either [facility] or [facility] that both serve [facility] but shows CARPENTER ASSISTANT INSTALLER business card for [facility] and endorses that facility as a choice for patient. CARPENTER ASSISTANT INSTALLER provides patient with [facility] brochure. CARPENTER ASSISTANT INSTALLER to review the above with ED provider Dr. Ritchie who will meet with patient for medical assessment. CARPENTER ASSISTANT INSTALLER to contact [facility] with referral and fax clinicals, order for HH, and F2F. Plan: CARPENTER ASSISTANT INSTALLER to f/u with HH referral for PT and HH aide once ED provider has medically assessed patient. DEAN Gill
[2020-12-07 15:15] LABS: Reflexed Lactate in 2 Hours Y
[2020-12-07 15:33] LABS: COVID19 - ADMIT (NP swab/PCR) Negative (Negative)
--- NOTE | 2020-12-07 17:07 | ED_ITS ---
HPI - Neuro Symptoms/Deficit General Chief Complaint: Neuro Symptoms/Deficit Stated Complaint: slurred speech x 2 days, back pain post fall Time Seen by Provider: 12/07/20 13:12 History of Present Illness HPI Narrative: 75-year-old gentleman with a history of prior stroke with some residual right-sided weakness and history of seizures for which he takes Dilantin. He apparently fell and hit his head 2-3 days ago has been increasingly sleepy and again fell this morning. His is complain that his speech is more slurred he is having increasing walking difficulties has chronic back pain. She is concerned that all of his symptoms are continuing to worsen. There is no reported fevers, cough, chills, abdominal pain, vomiting, diarrhea. On Anticoagulants: No Related Data Home Medications Medication Instructions Recorded Confirmed omeprazole 20 mg tablet,delayed 20 mg PO DAILY #0 11/13/16 02/04/19 release Disabled Parking Permit 1 ea MISCELLANEOUS DIRECTED 12/25/17 02/04/19 felodipine 10 mg tablet,extended 10 mg PO DAILY 12/25/17 02/04/19 release 24 hr ferrous sulfate 324 mg (65 mg 1 tab PO DAILY 12/25/17 02/04/19 iron) tablet,delayed release fluoxetine 10 mg capsule 30 mg PO DAILY 12/25/17 02/04/19 levetiracetam 500 mg tablet 500 mg PO BID 12/25/17 02/04/19 lisinopril 20 mg tablet 20 mg PO DAILY 12/25/17 02/04/19 loratadine 10 mg tablet 10 mg PO DAILY PRN 12/25/17 02/04/19 mirtazapine 30 mg tablet 30 mg PO BEDTIME 12/25/17 02/04/19 Allergies Allergy/AdvReac Type Severity Reaction Status Date / Time vancomycin [VANCOMYCIN] Allergy Unknown VANCO Verified 02/04/19 13:30 ALLERGY ON SN[facility] FACE SHEET Review of Systems Review of Systems Narrative: Remainder of complete review of systems is otherwise unremarkable except for that included in the HPI. Hematologic/Lymphatic On Anticoagulants: No Patient History Medical History (Updated 12/07/20 @ 17:34 by Sara Ritchie MD) CVA, old, alterations of sensations History of small bowel obstruction Hypertension Iron deficiency anemia Seizure disorder Surgical History History of appendectomy History of bowel resection History of colonoscopy with polypectomy Family History Father Cancer Social History household members: spouse Smoking Status: Former smoker alcohol intake: never Smoking Status: Former smoker Substance Use Type: does not use Exam Narrative Exam Narrative: General: Healthy appearing, in no acute distress. Able to give a complete and coherent history. Well-nourished well-developed HEENT: Moist mucous membranes, normal sclera with reactive pupils, Neck: No JVD, supple Respiratory: Lungs are clear to auscultation, no wheezing no rales no rhonchi. Full and symmetrical air movement Cardiac: Regular rate and rhythm no murmurs no bruits Abdomen: Soft, nontender, good bowel tones, no flank pain Skin: Warm and dry, no rashes Neurologic: NIH score of 0. I am not impressed that he is showing any slower heard speech. He is slightly ataxic but no dramatic weakness asymmetries are appreciated in the lower extremities. Extremities: No trauma, well perfused Psych: Cooperative, appropriate insight and affect Initial Vital Signs Initial Vital Signs: Vital Signs Pulse Rate 66 12/07/20 12:30 Respiratory Rate 12 12/07/20 12:30 Pulse Oximetry 99 12/07/20 12:30 Course Orders Ordered: ED Orders 12/07/20 12:38 XR chest 1V Stat 12/07/20 12:44 EKG-12 Lead Stat 12/07/20 13:00 Complete Blood Count AUTO DIFF Stat Comprehensive Metabolic Panel Stat Lactate (Lactic Acid) Stat Lipase Stat Partial Thromboplastin Time Stat Phenytoin / Dilantin Stat Prothrombin Time INR Stat Troponin & CK Cardiac Panel Stat 12/07/20 13:12 CT cervical spine wo con Stat CT head/brain wo con Stat 12/07/20 13:33 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 Stat 12/07/20 13:55 Blood Culture Stat 12/07/20 14:02 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) Stat 12/07/20 14:44 Consult to Home Health Stat Vital Signs Vital signs: Vital Signs - 8 hr 12/07/20 12:30 12/07/20 12:38 12/07/20 13:00 Temperature 99.0 F Pulse Rate 66 67 62 Respiratory Rate 12 18 11 L Blood Pressure 195/90 H 195/90 H Pulse Oximetry 99 98 12/07/20 14:39 12/07/20 14:40 12/07/20 15:00 Temperature Pulse Rate 67 61 62 Respiratory Rate 9 L 12 Blood Pressure 157/73 H 155/72 H Pulse Oximetry 98 95 99 12/07/20 15:30 12/07/20 16:00 Temperature Pulse Rate 63 67 Respiratory Rate 12 14 Blood Pressure 120/59 L Pulse Oximetry 98 98 MDM - Neuro Symptoms/Deficit Lab Data Result diagrams: 12/07/20 13:00 12/07/20 13:00 Labs: Lab Results 12/07/20 12/07/20 12/07/20 Range/Units 13:00 13:00 13:00 WBC 7.2 (4.5-11.0) X10^3/uL RBC 4.60 (4.5-5.9) X10^6/uL Hgb 14.2 (13.5-17.5) g/dL Hct 43.1 (41-53) % MCV 93.6 (80-100) fL MCH 30.9 (26-34) PG MCHC 33.0 (30-36) % RDW 14.9 H (11.6-14.8) % Plt Count 180 (150-400) X10^3/uL Neut % (Auto) 67.5 (50-75) % Lymph % (Auto) 22.7 L (25-40) % [place] % (Auto) 8.5 (3-14) % Eos % (Auto) 0.8 L (2-4) % Baso % (Auto) 0.5 (0-2) % Neut # (Auto) 4800 (5698-2758) /uL Lymph # (Auto) 1600 (2716-0565) /uL [place] # (Auto) 600 (0-900) /uL Eos # (Auto) 100 (0-450) /uL Baso # (Auto) 0 (0-100) /uL PT 12.3 (10.1-12.7) SECONDS INR 1.1 (0.9-1.3) APTT 33 (26.4-36.2) SECONDS Sodium 148 H (137-145) mmol/L Potassium 4.3 (3.4-5.1) mmol/L Chloride 109 H (98-107) mmol/L Carbon Dioxide 30 (22-32) mmol/L BUN 30 H (9-20) mg/dL Creatinine 0.88 (0.66-1.25) mg/dL Estimated GFR > 60.0 (>60) mL/min BUN/Creatinine Ratio 34.1 H (6-22) Glucose 100 (80-110) mg/dL Lactate (0.7-2.1) mmol/L Calcium 9.5 (8.4-10.2) mg/dL Total Bilirubin 0.5 (0.2-1.3) mg/dL AST 38 (17-59) IU/L ALT 26 (<50) IU/L Alkaline Phosphatase 144 H (38-126) U/L Total Creatine Kinase 149 (55-170) U/L CK-MB (CK-2) 1.50 (<2.37) ng/mL CK-MB (CK-2) Rel Index 1.0 L (1.5-5.0) % Troponin I 0.032 (0.01-0.034) ng/mL Total Protein 8.2 (6.3-8.2) g/dL Albumin 4.6 (3.5-5.0) g/dL Globulin 3.6 (1.7-4.1) g/dL Albumin/Globulin Ratio 1.3 (1.0-2.8) Lipase 27 (23-300) U/L Phenytoin (10-20) ug/mL SARS-CoV-2 (PCR) (Negative) 12/07/20 12/07/20 12/07/20 Range/Units 13:00 13:00 14:02 WBC (4.5-11.0) X10^3/uL RBC (4.5-5.9) X10^6/uL Hgb (13.5-17.5) g/dL Hct (41-53) % MCV (80-100) fL MCH (26-34) PG MCHC (30-36) % RDW (11.6-14.8) % Plt Count (150-400) X10^3/uL Neut % (Auto) (50-75) % Lymph % (Auto) (25-40) % [place] % (Auto) (3-14) % Eos % (Auto) (2-4) % Baso % (Auto) (0-2) % Neut # (Auto) (4717-6133) /uL Lymph # (Auto) (4400-0121) /uL [place] # (Auto) (0-900) /uL Eos # (Auto) (0-450) /uL Baso # (Auto) (0-100) /uL PT (10.1-12.7) SECONDS INR (0.9-1.3) APTT (26.4-36.2) SECONDS Sodium (137-145) mmol/L Potassium (3.4-5.1) mmol/L Chloride (98-107) mmol/L Carbon Dioxide (22-32) mmol/L BUN (9-20) mg/dL Creatinine (0.66-1.25) mg/dL Estimated GFR (>60) mL/min BUN/Creatinine Ratio (6-22) Glucose (80-110) mg/dL Lactate 2.6 H (0.7-2.1) mmol/L Calcium (8.4-10.2) mg/dL Total Bilirubin (0.2-1.3) mg/dL AST (17-59) IU/L ALT (<50) IU/L Alkaline Phosphatase (38-126) U/L Total Creatine Kinase (55-170) U/L CK-MB (CK-2) (<2.37) ng/mL CK-MB (CK-2) Rel Index (1.5-5.0) % Troponin I (0.01-0.034) ng/mL Total Protein (6.3-8.2) g/dL Albumin (3.5-5.0) g/dL Globulin (1.7-4.1) g/dL Albumin/Globulin Ratio (1.0-2.8) Lipase (23-300) U/L Phenytoin 24.6 H (10-20) ug/mL SARS-CoV-2 (PCR) Negative (Negative) Imaging Data CT scan - head: Radiologist's Impression: FINDINGS: Image quality: Excellent. CSF spaces: Basal cisterns are patent. No extra-axial fluid collections. The ventricles are symmetric in size and shape. Brain: No intracranial bleeds or masses. There is cerebral volume loss for a ge, with resultant ventricular and sulcal prominence. There are periventricular and deep white matter chronic small vessel ischemic changes. Chronic left cerebellar hemisphere infarct. There is intracranial internal carotid artery atherosclerosis. Skull and face: Calvarium and visualized facial bones appear intact, without suspicious lesions. Sinuses: Visualized sinuses and mastoids are clear. IMPRESSION: No acute intracranial disease process. Dictated by: Taylor Monson MD, PhD on 12/07/2020 at 13:35 CT - cervical spine: Radiologist's Impression: FINDINGS: Image quality: Excellent. Bones: No acute fractures or dislocations. There is reversal of normal upper cervical spine curvature. Chronic appearing T4 and T5 anterior column compression deformities noted. Spine degenerative disc disease and facet arthropathy. Visualized superior ribs are intact. Soft tissues: Prevertebral soft tissues are normal in thickness. No paravertebral hematomas. No apical pneumothoraces. Emphysematous changes noted in the lungs bilaterally. IMPRESSION: No acute fracture. No acute osseous lesion. If symptoms and/or clinical suspicion for pathology persists, evaluation with MRI should be considered for further assessment. Dictated by: Taylor Monson MD, PhD on 12/07/2020 at 13:38 [facility] Narrative Medical decision making narrative: 75-year-old gentleman with prior stroke currently on Dilantin for seizure disorders with increasing falls and gait instability without overt new stroke-like findings. Infection. He is mildly dehydrated. Urine is not suggest infection. Level is slightly elevated I suspect that is the explanation for his minor instability and combined with his baseline foot drag on the right after his prior stroke I think this is contributing to his falls. CT scan of the head neck does not suggest new stroke, intracranial hemorrhage or acute injury. Has no bony abnormalities or specific tenderness. On further questioning his Dilantin level was increased from 160 mg to 190 mg about 2 weeks ago with symptoms starting about a week after that. I have suggested that they go back to 160 mg (100 mg pill and 2 30 mg pills) and follow-up with their primary care physician. Home health has been initiated and I think that may be as helpful as any other options that I have to suggest from the ER today. At this point there is no evidence of stroke infection or life- threatening illness that needs hospital admission. Have suggested they hold tonight's dose of Dilantin completely and restart tomorrow at 160 mg and call [place] discharge Discharge Plan Departure Patient Disposition: Home Clinical Impression: Acute drug overdose, Fall Instructions: Phenytoin (By mouth) Activity Restrictions/Additional Instructions: Your Dilantin level came back slightly elevated. I suspect that the recent increase from 160 mg to 190 mg is causing this. With high Dilantin levels you do get more gait instability and that puts you at increased risk for falling. I did not find any evidence of new stroke, infection or other life-threatening illness today You can use Tylenol to help with the back pain that your having from your fall today Please do not take your Dilantin dose tonight and tomorrow restart at 160 mg. You will need to call your primary care doctor to schedule an appointment to follow-up with this lower Dilantin dose. We did initiate a home health referral today and I am hopeful that this will be helpful for you Prescriptions: No Action omeprazole 20 MG tablet,delayed release (DR/EC) 20 mg PO DAILY Qty: 0 RF: 0 loratadine 10 MG tablet 10 mg PO DAILY PRN (Reason: Allergy Symptoms) RF: 0 mirtazapine 30 MG tablet 30 mg PO BEDTIME RF: 0 levetiracetam 500 mg tablet 500 mg PO BID RF: 0 lisinopril 20 mg tablet 20 mg PO DAILY RF: 0 fluoxetine 10 mg capsule 30 mg PO DAILY RF: 0 felodipine 10 mg tablet extended release 24 hr 10 mg PO DAILY RF: 0 ferrous sulfate 324 mg (65 mg iron) tablet,delayed release (DR/EC) 1 tab PO DAILY RF: 0 Disabled Parking Permit 1 ea miscellaneous DIRECTED RF: 0 Referrals: Gemini Nix MD [Primary Care Provider] -
[2020-12-07] MEDS: KETOROLAC 30 MG/ML VIAL 15 MG IV (17:39)
== END 2020-12-07 17:50 | disposition home or self-care (01) ==
PROVIDERS: Emergency Provider Emergency Medicine; PCP Internal Medicine
DX: T42.0X1A Poisoning by hydantoin derivatives, accidental (unintentional), initial encounter (principal); R07.9 Chest pain, unspecified; E86.0 Dehydration; R29.6 Repeated falls; W19.XXXA Unspecified fall, initial encounter; Z20.822 Contact with and (suspected) exposure to COVID-19
CPT/HCPCS: 36415; 70450; 71045; 72125; 80053; 80185; 82550; 82553; 83605; 83690; 84484; 85025; 85610; 85730; 87040; 87635; 93005; 96374; 99285; C9803; J1885

== ENCOUNTER 2021-05-14 19:30 | Inpatient (IN) | payer MEDICARE, OTHER, SELFPAY ==
[2019-02-04 19:54] VITALS: BMI 16.6
[2021-05-14] VITALS (17 sets, daily range): BP systolic 107–246; BP diastolic 60–127; PULSE 85–122; RESP 8–20; TEMP 37.2–37.6; O2SAT 94–100; BMI 18.2
--- NOTE | 2021-05-14 19:35 | DI.RAD.S_ITS ---
PROCEDURE: XR CHEST 1V INDICATIONS: suspected sepsis TECHNIQUE: One view of the chest was acquired. COMPARISON: [facility], CR, XR CHEST 1V, 12/07/2020, 12:45. [facility], CR, XR CHEST 1V, 11/11/2020, 14:59. FINDINGS: Surgical changes and devices: None. Lungs and pleura: Lungs are mildly abnormal, with relatively large lung volumes and interstitial prominence potentially a manifestation of longstanding COPD.. No pleural effusions or pneumothorax. Mediastinum: Mediastinal contours appear normal. Heart size is normal. Bones and chest wall: No suspicious bony lesions. Overlying soft tissues appear unremarkable. IMPRESSION: No pneumonia found, relatively large lung volumes and there is a superimposed mild interstitial prominence that may reflect sequela of prior smoking history. Dictated by: Jason Huitron M.D. on 05/14/2021 at 20:32 Approved by: Jason Huitron M.D. on 05/14/2021 at 20:33
--- NOTE | 2021-05-14 19:52 | DI.RAD.S_ITS ---
PROCEDURE: XR LUMBAR SPINE 2-3V INDICATIONS: Fall with pain. TECHNIQUE: 3 views of the lumbar spine were acquired. COMPARISON: None. FINDINGS: Bones: 5 [id number] vertebrae are present. There is normal bony alignment. There are several vertebral body compression fractures, located most superiorly at T12, wary moderate compression fracture without subluxation is present with an estimated 46% height reduction at the middle 3rd of the T12 vertebral body. There is slight inferior bowing of the upper endplate of L1. A moderate compression fracture with also approximately a 45% height reduction at the middle 3rd of the vertebral body is seen at L2. There is slight superior endplate bowing at L3. A [id number] compression fracture is present at L4, with an estimated 35% height reduction when compared to the level immediately above. At L5 there is approximately a 45% vertebral body compression fracture with reduction of the middle 3rd vertebral body height.. No suspicious bony lesions. Soft tissues: Overlying bowel gas pattern is normal. No suspicious soft tissue calcifications. IMPRESSION: Multiple low thoracic and lumbosacral vertebral body compression fractures are present of uncertain chronicity. MR scanning would allow accurate assessment for chronicity, which would be acute or subacute in the setting of vertebral body marrow edema in this clinical circumstance. Dictated by: Jason Huitron M.D. on 05/14/2021 at 20:45 Approved by: Jason Huitron M.D. on 05/14/2021 at 20:51
--- NOTE | 2021-05-14 19:52 | DI.CT.S_ITS ---
PROCEDURE: CT HEAD/BRAIN WO CON INDICATIONS: syncope TECHNIQUE: Noncontrast 4.5 mm thick angled axial sections acquired from the foramen magnum to the vertex, with coronal and sagittal reformats. For radiation dose reduction, the following was used: automated exposure control, adjustment of mA and/or kV according to patient size. COMPARISON: [facility], CT, CT HEAD/BRAIN WO CON, 12/07/2020, 13:21. [facility], CT, CT HEAD/BRAIN WO CON, 11/11/2020, 15:01. FINDINGS: Image quality: Excellent. CSF spaces: Basal cisterns are patent. No extra-axial fluid collections. The ventricles are symmetric in size and shape. Brain: No intracranial bleeds or masses. There is cerebral volume loss for age, with resultant ventricular and sulcal prominence. There are periventricular and deep white matter chronic small vessel ischemic changes. There is intracranial internal carotid artery atherosclerosis. Skull and face: Calvarium and visualized facial bones appear intact, without suspicious lesions. Sinuses: Visualized sinuses and mastoids are clear. IMPRESSION: Moderately severe brain parenchymal atrophy, previously present, but there is no evidence of acute or subacute stroke, hemorrhage, or mass. No perceptible change from the comparison prior head CTs in October and December of last year. Dictated by: Jason Huitron M.D. on 05/14/2021 at 20:52 Approved by: Jason Huitron M.D. on 05/14/2021 at 20:54
--- NOTE | 2021-05-14 19:52 | DI.RAD.S_ITS ---
PROCEDURE: XR PELVIS 1-2V INDICATIONS: fall with pain TECHNIQUE: Single frontal view of the pelvis acquired. COMPARISON: None. FINDINGS: Bones: No fractures or dislocations. No suspicious bony lesions. Soft tissues: Visualized bowel gas pattern is normal. No suspicious soft tissue calcifications. IMPRESSION: No osseous trauma found. Follow-up by delayed plain film imaging may be warranted if unusual symptoms persist. Alternatively, advanced imaging such as screening pelvic MRI scanning may become necessary. Dictated by: Jason Huitron M.D. on 05/14/2021 at 20:30 Approved by: Jason Huitron M.D. on 05/14/2021 at 20:32
--- NOTE | 2021-05-14 19:54 | ED.FALL ---
HPI - Fall General Chief Complaint: Fall Stated Complaint: sob/ unable to walk Time Seen by Provider: 05/14/21 19:40 Source: patient and family Mode of arrival: Wheelchair History of Present Illness HPI Narrative: Patient is a 75-year-old male. Has a history of CVA with residual deficits. Also has a history of strokes. Is followed by Neurology. Patient's states that under the direction of Neurology they have been decreasing his Dilantin and having him on Keppra. Over the past several days it appears that he has been having problems swallowing so there is been decreased oral intake and over the past 24 hours he has not taken any of his medications to include his Dilantin and Keppra. He has had progressive weakness since then. Has had falls at home. Patient was unable to get out of the car on his own. Nursing staff had to come and get him out of the car this stated that he was having episodes of rigidity. Patient's states he has been doing this but this is different than his previous seizure activity. She states he has not had a seizure in years. Initially patient was complaining of back pain that seemed to have occurred after a recent fall. Patient denied chest pain. No shortness of breath. No headache. No neck pain. No belly pain. No urinary symptoms. Related Data Home Medications Medication Instructions Recorded Confirmed Disabled Parking Permit 1 ea MISCELLANEOUS DIRECTED 12/25/17 05/15/21 felodipine 10 mg tablet,extended 10 mg PO DAILY 12/25/17 05/15/21 release 24 hr ferrous sulfate 324 mg (65 mg 1 tab PO DAILY 12/25/17 05/15/21 iron) tablet,delayed release fluoxetine 10 mg capsule 30 mg PO DAILY 12/25/17 05/15/21 levetiracetam 500 mg tablet 750 mg PO BID 12/25/17 05/15/21 lisinopril 20 mg tablet 20 mg PO DAILY 12/25/17 05/15/21 loratadine 10 mg tablet 10 mg PO DAILY PRN 12/25/17 05/15/21 mirtazapine 30 mg tablet 30 mg PO BEDTIME 12/25/17 05/15/21 omeprazole 20 mg capsule,delayed 20 mg PO DAILY 05/15/21 05/15/21 release Allergies Allergy/AdvReac Type Severity Reaction Status Date / Time vancomycin [VANCOMYCIN] Allergy Unknown VANCO Verified 02/04/19 13:30 ALLERGY ON SN[facility] FACE SHEET Review of Systems Constitutional Constitutional: Reports fatigue, Denies fever(s), Reports frequent falls, Denies headache(s) and Reports weakness ENT Ears, Nose, Mouth, and Throat: Denies vertigo, Denies dizziness, Denies headache(s) and Reports disequilibrium Cardiovascular Cardiovascular: Denies chest pain and Denies dyspnea Respiratory Respiratory: Denies dyspnea Gastrointestinal Gastrointestinal: Denies abdominal pain and Denies change in bowel habits Genitourinary Genitourinary: Reports system reviewed and no additional complaints, except as documented Musculoskeletal Musculoskeletal: Reports back pain, Reports muscle cramps and Reports stiffness Integumentary/Breasts Skin/Breast: Reports system reviewed and no additional complaints, except as documented Neurologic Neurologic: Denies vertigo, Denies dizziness, Reports frequent falls, Denies headache(s), Reports convulsions, Reports disequilibrium and Reports weakness Psychiatric Psychiatric: Reports system reviewed and no additional complaints, except as documented Endocrine Endocrine: Reports fatigue Hematologic/Lymphatic On Anticoagulants: No Allergic/Immunologic Allergic/Immunologic: Reports system reviewed and no additional complaints, except as documented Patient History Medical History CVA, old, alterations of sensations History of small bowel obstruction Hypertension Iron deficiency anemia Seizure disorder Surgical History History of appendectomy History of bowel resection History of colonoscopy with polypectomy Family History Father Cancer Social History household members: spouse Smoking Status: Former smoker alcohol intake: never Smoking Status: Former smoker alcohol intake frequency: 0-2 drinks per day Substance Use Type: does not use Exam Initial Vital Signs Initial Vital Signs: Vital Signs Temperature 98.9 F 05/14/21 19:35 Pulse Rate 103 H 05/14/21 19:35 Respiratory Rate 20 05/14/21 19:35 Blood Pressure 152/74 H 05/14/21 19:35 Pulse Oximetry 97 05/14/21 19:35 Const General: cooperative and frail appearing Limitations: mental status not altered [facility] Head: normal to inspection and normocephalic Eyes General: appearance normal, both eyes and all related structures Chest Chest: No crepitus and No tenderness Resp Effort & Inspection: normal respiratory effort Auscultation: clear to auscultation bilaterally Cardio Rate: regular rate Rhythm: regular rhythm GI Palpation: soft, No firm and No tender Other: Excoriation of the skin around his penis and scrotum. No erythema. Back/Spine/Pelvis Back: No back tenderness Cervical Spine: No cervical spinal tenderness Thoracic/Lumbar Spine: No paraspinal tenderness, No thoracic spinal tenderness and No lumbar spinal tenderness Skin Other: Excoriation on his penis and scrotum and on his buttocks. Neuro General: patient alert, patient awake and moves all extremities Sensory Exam: no sensory deficits noted Extrem General: capillary refill normal Psych Appearance: grossly normal Course Orders Ordered: ED Orders 05/14/21 21:17 Blood Culture Stat 05/14/21 23:12 Urinalysis and Microscopic Stat Urine Culture Stat Acetaminophen (Acetaminophen 325 Mg Tablet) 650 mg PO Q6HR PRN PRN Reason: Fever/Mild Pain (1-3) Heparin Sodium (Porcine) (Heparin 5,000 Unit/Ml Vial) 5,000 unit SUBCUT BID [facility] Hydromorphone HCl (Hydromorphone 0.5 Mg Inj) 0.5 mg IV Q6H PRN PRN Reason: Pain, Moderate (4-6) Sodium Chloride (Normal Saline 0.9%) 1,000 mls @ 150 mls/hr IV CONT [facility] Last Admin: 05/15/21 01:54 Dose: 150 mls/hr Documented by: GARRETT Ceftriaxone Sodium 2,000 mg/ (Sodium Chloride) 100 mls @ 200 mls/hr IV Q24H [facility] Levetiracetam 750 mg/ Sodium (Chloride) 107.5 mls @ 430 mls/hr IV Q12H [facility] Lidocaine (Lidocaine Patch 1 Each Adh..Patch) 1 each TOP DAILY [facility] Naloxone HCl (Naloxone 0.4 Mg/Ml Vial) 0.2 mg IV Q2MIN PRN PRN Reason: Opiate Reversal Ondansetron HCl (Ondansetron 4 Mg/2 Ml Inj) 4 mg IV Q8HR PRN PRN Reason: Nausea And Vomiting Phenytoin (Phenytoin 50 Mg Chew Tab) 100 mg PO BID [facility] Discontinued Medications Sodium Chloride (Normal Saline 0.9%) 1,000 mls @ 150 mls/hr IV CONT [facility] Last Infusion: 05/14/21 23:35 Dose: 150 mls/hr Documented by: Infusion: 05/14/21 22:40 Dose: 0 mls/hr Documented by: Admin: 05/14/21 21:29 Dose: 150 mls/hr Documented by: CLIFTON Ceftriaxone Sodium 1,000 mg/ (Sodium Chloride) 100 mls @ 200 mls/hr IV NOW ONE Stop: 05/14/21 21:11 Last Infusion: 05/14/21 22:41 Dose: 0 mls/hr Documented by: Admin: 05/14/21 21:29 Dose: 200 mls/hr Documented by: CLIFTON Levetiracetam 1,000 mg/ Sodium (Chloride) 110 mls @ 440 mls/hr IV NOW ONE Stop: 05/14/21 21:31 Last Infusion: 05/14/21 22:50 Dose: 0 mls/hr Documented by: Admin: 05/14/21 22:29 Dose: 440 mls/hr Documented by: CLIFTON Levetiracetam 1,000 mg/ Sodium (Chloride) 110 mls @ 440 mls/hr IV NOW ONE Stop: 05/14/21 22:44 Last Admin: 05/14/21 23:36 Dose: Not Given Documented by: CLIFTON Morphine Sulfate (Morphine 2 Mg/Ml Inj) 2 mg IV Q2HR PRN PRN Reason: Pain, Moderate (4-6) Last Admin: 05/14/21 21:29 Dose: 2 mg Documented by: CLIFTON Vital Signs Vital signs: Vital Signs - 8 hr 05/14/21 22:29 05/14/21 22:30 05/14/21 23:00 Temperature Pulse Rate 89 90 95 H Respiratory Rate 14 Blood Pressure 128/60 119/61 114/66 Pulse Oximetry 98 98 100 05/14/21 23:15 05/14/21 23:30 05/15/21 00:00 Temperature 99.6 F Pulse Rate 85 120 H Respiratory Rate 11 L 30 H Blood Pressure 131/69 238/133 H Pulse Oximetry 98 96 05/15/21 00:19 Temperature Pulse Rate 112 H Respiratory Rate Blood Pressure 156/118 H Pulse Oximetry 97 MDM - Fall Medical Records Attestation: I reviewed the patient's medical records. Lab Data Attestation: I reviewed the patient's lab results. Result diagrams: 05/14/21 20:00 05/14/21 20:00 Labs: Lab Results 05/14/21 05/14/21 05/14/21 Range/Units 19:50 20:00 20:00 WBC 13.8 H (4.5-11.0) X10^3/uL RBC 4.66 (4.5-5.9) X10^6/uL Hgb 14.3 (13.5-17.5) g/dL Hct 42.2 (41-53) % MCV 90.6 (80-100) fL MCH 30.7 (26-34) PG MCHC 33.9 (30-36) % RDW 14.6 (11.6-14.8) % Plt Count Not Reportable Neut % (Auto) Not Reportable Lymph % (Auto) Not Reportable [place] % (Auto) Not Reportable Eos % (Auto) Not Reportable Baso % (Auto) Not Reportable Lymph # (Auto) Not Reportable [place] # (Auto) Not Reportable Baso # (Auto) Not Reportable Total Counted 100 Seg Neutrophils % 63.0 (38-70) % Band Neutrophils % 15.0 H (3-7) % Lymphocytes % (Manual) 15.0 L (25-45) % Monocytes % (Manual) 7.0 (2-11) % Neutrophils # (Manual) 74452 H (1478-0124) /uL Toxic Granulation Present H Platelet Estimate Adequate on smear RBC Morphology See below PT 11.5 (10.1-12.7) SECONDS INR 1.0 (0.9-1.3) APTT 21 L D (26.4-36.2) SECONDS Sodium (137-145) mmol/L Potassium (3.4-5.1) mmol/L Chloride (98-107) mmol/L Carbon Dioxide (22-32) mmol/L BUN (9-20) mg/dL Creatinine (0.66-1.25) mg/dL Estimated GFR (>60) mL/min BUN/Creatinine Ratio (6-22) Glucose (80-110) mg/dL Lactate (0.7-2.1) mmol/L Calcium (8.4-10.2) mg/dL Magnesium (1.6-2.3) mg/dL Total Bilirubin (0.2-1.3) mg/dL AST (17-59) IU/L ALT (<50) IU/L Alkaline Phosphatase (38-126) U/L Total Creatine Kinase (55-170) U/L CK-MB (CK-2) (<2.37) ng/mL CK-MB (CK-2) Rel Index (1.5-5.0) % Troponin I (0.01-0.034) ng/mL Total Protein (6.3-8.2) g/dL Albumin (3.5-5.0) g/dL Globulin (1.7-4.1) g/dL Albumin/Globulin Ratio (1.0-2.8) Lipase (23-300) U/L Procalcitonin (<0.5) ng/mL Urine Color Urine Appearance Urine pH (4.5-8.0) Ur Specific [place] (1.000-1.035) Urine Protein (Negative) Urine Glucose (UA) (Negative) g/dL Urine Ketones (NEGATIVE) Urine Occult Blood (Negative) Urine Nitrate (Negative) Urine Bilirubin (NEGATIVE) Urine Urobilinogen (0.2) E.U./dL Ur Leukocyte Esterase (NEGATIVE) Urine RBC (0-5/HPF) Urine WBC (0-5/HPF) Urine Bacteria (None) Ur Culture Indicated? Ur Random Sodium (30-90) mmol/L Urine Creatinine mg/dL Phenytoin (10-20) ug/mL SARS-CoV-2 (PCR) Negative (Negative) 05/14/21 05/14/21 05/14/21 Range/Units 20:00 20:00 20:00 WBC (4.5-11.0) X10^3/uL RBC (4.5-5.9) X10^6/uL Hgb (13.5-17.5) g/dL Hct (41-53) % MCV (80-100) fL MCH (26-34) PG MCHC (30-36) % RDW (11.6-14.8) % Plt Count Neut % (Auto) Lymph % (Auto) [place] % (Auto) Eos % (Auto) Baso % (Auto) Lymph # (Auto) [place] # (Auto) Baso # (Auto) Total Counted Seg Neutrophils % (38-70) % Band Neutrophils % (3-7) % Lymphocytes % (Manual) (25-45) % Monocytes % (Manual) (2-11) % Neutrophils # (Manual) (4332-5428) /uL Toxic Granulation Platelet Estimate RBC Morphology PT (10.1-12.7) SECONDS INR (0.9-1.3) APTT (26.4-36.2) SECONDS Sodium 147 H (137-145) mmol/L Potassium 3.9 (3.4-5.1) mmol/L Chloride 112 H (98-107) mmol/L Carbon Dioxide 25 (22-32) mmol/L BUN 61 H (9-20) mg/dL Creatinine 1.71 H (0.66-1.25) mg/dL Estimated GFR 39.4 L (>60) mL/min BUN/Creatinine Ratio 35.7 H (6-22) Glucose 114 H (80-110) mg/dL Lactate 4.5 H* (0.7-2.1) mmol/L Calcium 10.1 (8.4-10.2) mg/dL Magnesium (1.6-2.3) mg/dL Total Bilirubin 0.6 (0.2-1.3) mg/dL AST 31 (17-59) IU/L ALT 25 (<50) IU/L Alkaline Phosphatase 102 (38-126) U/L Total Creatine Kinase 102 (55-170) U/L CK-MB (CK-2) 0.49 (<2.37) ng/mL CK-MB (CK-2) Rel Index 0.5 L (1.5-5.0) % Troponin I 0.022 (0.01-0.034) ng/mL Total Protein 8.0 (6.3-8.2) g/dL Albumin 4.3 (3.5-5.0) g/dL Globulin 3.7 (1.7-4.1) g/dL Albumin/Globulin Ratio 1.2 (1.0-2.8) Lipase 20 L (23-300) U/L Procalcitonin 3.43 H (<0.5) ng/mL Urine Color Urine Appearance Urine pH (4.5-8.0) Ur Specific [place] (1.000-1.035) Urine Protein (Negative) Urine Glucose (UA) (Negative) g/dL Urine Ketones (NEGATIVE) Urine Occult Blood (Negative) Urine Nitrate (Negative) Urine Bilirubin (NEGATIVE) Urine Urobilinogen (0.2) E.U./dL Ur Leukocyte Esterase (NEGATIVE) Urine RBC (0-5/HPF) Urine WBC (0-5/HPF) Urine Bacteria (None) Ur Culture Indicated? Ur Random Sodium (30-90) mmol/L Urine Creatinine mg/dL Phenytoin < 3.0 L (10-20) ug/mL SARS-CoV-2 (PCR) (Negative) 05/14/21 05/14/21 05/14/21 Range/Units 20:00 23:00 23:00 WBC (4.5-11.0) X10^3/uL RBC (4.5-5.9) X10^6/uL Hgb (13.5-17.5) g/dL Hct (41-53) % MCV (80-100) fL MCH (26-34) PG MCHC (30-36) % RDW (11.6-14.8) % Plt Count Neut % (Auto) Lymph % (Auto) [place] % (Auto) Eos % (Auto) Baso % (Auto) Lymph # (Auto) [place] # (Auto) Baso # (Auto) Total Counted Seg Neutrophils % (38-70) % Band Neutrophils % (3-7) % Lymphocytes % (Manual) (25-45) % Monocytes % (Manual) (2-11) % Neutrophils # (Manual) (0419-3444) /uL Toxic Granulation Platelet Estimate RBC Morphology PT (10.1-12.7) SECONDS INR (0.9-1.3) APTT (26.4-36.2) SECONDS Sodium (137-145) mmol/L Potassium (3.4-5.1) mmol/L Chloride (98-107) mmol/L Carbon Dioxide (22-32) mmol/L BUN (9-20) mg/dL Creatinine (0.66-1.25) mg/dL Estimated GFR (>60) mL/min BUN/Creatinine Ratio (6-22) Glucose (80-110) mg/dL Lactate (0.7-2.1) mmol/L Calcium (8.4-10.2) mg/dL Magnesium 2.1 (1.6-2.3) mg/dL Total Bilirubin (0.2-1.3) mg/dL AST (17-59) IU/L ALT (<50) IU/L Alkaline Phosphatase (38-126) U/L Total Creatine Kinase (55-170) U/L CK-MB (CK-2) (<2.37) ng/mL CK-MB (CK-2) Rel Index (1.5-5.0) % Troponin I (0.01-0.034) ng/mL Total Protein (6.3-8.2) g/dL Albumin (3.5-5.0) g/dL Globulin (1.7-4.1) g/dL Albumin/Globulin Ratio (1.0-2.8) Lipase (23-300) U/L Procalcitonin (<0.5) ng/mL Urine Color Urine Appearance Urine pH (4.5-8.0) Ur Specific [place] (1.000-1.035) Urine Protein (Negative) Urine Glucose (UA) (Negative) g/dL Urine Ketones (NEGATIVE) Urine Occult Blood (Negative) Urine Nitrate (Negative) Urine Bilirubin (NEGATIVE) Urine Urobilinogen (0.2) E.U./dL Ur Leukocyte Esterase (NEGATIVE) Urine RBC (0-5/HPF) Urine WBC (0-5/HPF) Urine Bacteria (None) Ur Culture Indicated? Ur Random Sodium 102 H (30-90) mmol/L Urine Creatinine 116.1 mg/dL Phenytoin (10-20) ug/mL SARS-CoV-2 (PCR) (Negative) 05/14/21 05/14/21 Range/Units 23:05 23:12 WBC (4.5-11.0) X10^3/uL RBC (4.5-5.9) X10^6/uL Hgb (13.5-17.5) g/dL Hct (41-53) % MCV (80-100) fL MCH (26-34) PG MCHC (30-36) % RDW (11.6-14.8) % Plt Count Neut % (Auto) Lymph % (Auto) [place] % (Auto) Eos % (Auto) Baso % (Auto) Lymph # (Auto) [place] # (Auto) Baso # (Auto) Total Counted Seg Neutrophils % (38-70) % Band Neutrophils % (3-7) % Lymphocytes % (Manual) (25-45) % Monocytes % (Manual) (2-11) % Neutrophils # (Manual) (1729-9286) /uL Toxic Granulation Platelet Estimate RBC Morphology PT (10.1-12.7) SECONDS INR (0.9-1.3) APTT (26.4-36.2) SECONDS Sodium (137-145) mmol/L Potassium (3.4-5.1) mmol/L Chloride (98-107) mmol/L Carbon Dioxide (22-32) mmol/L BUN (9-20) mg/dL Creatinine (0.66-1.25) mg/dL Estimated GFR (>60) mL/min BUN/Creatinine Ratio (6-22) Glucose (80-110) mg/dL Lactate 2.5 H (0.7-2.1) mmol/L Calcium (8.4-10.2) mg/dL Magnesium (1.6-2.3) mg/dL Total Bilirubin (0.2-1.3) mg/dL AST (17-59) IU/L ALT (<50) IU/L Alkaline Phosphatase (38-126) U/L Total Creatine Kinase (55-170) U/L CK-MB (CK-2) (<2.37) ng/mL CK-MB (CK-2) Rel Index (1.5-5.0) % Troponin I (0.01-0.034) ng/mL Total Protein (6.3-8.2) g/dL Albumin (3.5-5.0) g/dL Globulin (1.7-4.1) g/dL Albumin/Globulin Ratio (1.0-2.8) Lipase (23-300) U/L Procalcitonin (<0.5) ng/mL Urine Color Yellow Urine Appearance Cloudy Urine pH 8.5 H (4.5-8.0) Ur Specific [place] 1.020 (1.000-1.035) Urine Protein 2+ H (Negative) Urine Glucose (UA) Negative (Negative) g/dL Urine Ketones Negative (NEGATIVE) Urine Occult Blood 3+ H (Negative) Urine Nitrate Negative (Negative) Urine Bilirubin Negative (NEGATIVE) Urine Urobilinogen 0.2 (0.2) E.U./dL Ur Leukocyte Esterase 2+ H (NEGATIVE) Urine RBC 1-5/hpf (0-5/HPF) Urine WBC 30-100/hpf H (0-5/HPF) Urine Bacteria Many (>30) H (None) Ur Culture Indicated? Specimen cultured Ur Random Sodium (30-90) mmol/L Urine Creatinine mg/dL Phenytoin (10-20) ug/mL SARS-CoV-2 (PCR) (Negative) Imaging Data Chest x-ray: Radiologist's Impression: [address] [address] XRay Report Signed Patient: Joseph Milan MR#: [id number] : 1945 Acct:[id number] Age/Sex: 75 / M Date of Service: 05/14/21 Loc: ED Accession Number: [id number] ?? Procedure: XR chest 1V Ordering Provider: Juan Overton D.O. PROCEDURE:? XR CHEST 1V ? INDICATIONS:? suspected sepsis ? TECHNIQUE:? One view of the chest was acquired.? ? COMPARISON:? [facility], CR, XR CHEST 1V, 12/07/2020, 12:45.? [facility], CR, XR CHEST 1V, 11/11/2020, 14:59. ? FINDINGS:? ? Surgical changes and devices:? None.? ? Lungs and pleura:? Lungs are mildly abnormal, with relatively large lung volumes and interstitial prominence potentially a manifestation of longstanding COPD..? No pleural effusions or pneumothorax.? ? Mediastinum:? Mediastinal contours appear normal.? Heart size is normal.? ? Bones and chest wall:? No suspicious bony lesions.? Overlying soft tissues appear unremarkable.? ? IMPRESSION:? No pneumonia found, relatively large lung volumes and there is a superimposed mild interstitial prominence that may reflect sequela of prior smoking history. ? ? Dictated by: Jason Huitron M.D. on 05/14/2021 at 20:32 ? ? Approved by: Jason Huitron M.D. on 05/14/2021 at 20:33? CT scan - head: Radiologist's Impression: [address] [address] [address] Scan Report Signed Patient: Joseph Milan MR#: [id number] : 1945 Acct:[id number] Age/Sex: 75 / M Date of Service: 05/14/21 Loc: ED Accession Number: [id number] ?? Procedure: CT head/brain wo con Ordering Provider: Juan Overton D.O. PROCEDURE:? CT HEAD/BRAIN WO CON ? INDICATIONS:? syncope ? TECHNIQUE:? Noncontrast 4.5 mm thick angled axial sections acquired from the foramen magnum to the vertex, with coronal and sagittal reformats.? For radiation dose reduction, the following was used:? automated exposure control, adjustment of mA and/or kV according to patient size.? ? COMPARISON:? [facility], CT, CT HEAD/BRAIN WO CON, 12/07/2020, 13:21.? [facility], CT, CT HEAD/BRAIN WO CON, 11/11/2020, 15:01. ? FINDINGS:? Image quality:? Excellent.? ? CSF spaces:? Basal cisterns are patent.? No extra-axial fluid collections.? The ventricles are symmetric in size and shape.? ? Brain:? No intracranial bleeds or masses.? There is cerebral volume loss for age, with resultant ventricular and sulcal prominence.? There are periventricular and deep white matter chronic small vessel ischemic changes.? There is intracranial internal carotid artery atherosclerosis.? ? Skull and face:? Calvarium and visualized facial bones appear intact, without suspicious lesions.? ? Sinuses:? Visualized sinuses and mastoids are clear.? ? IMPRESSION:? Moderately severe brain parenchymal atrophy, previously present, but there is no evidence of acute or subacute stroke, hemorrhage, or mass.? No perceptible change from the comparison prior head CTs in October and December of last year. ? ? Dictated by: Jason Huitron M.D. on 05/14/2021 at 20:52 ? ? Approved by: Jason Huitron M.D. on 05/14/2021 at 20:54?? Lumbar spine x-ray: Radiologist's Impression: [address] [address] XRay Report Signed Patient: Joseph Milan MR#: [id number] : 1945 Acct:[id number] Age/Sex: 75 / M Date of Service: 05/14/21 Loc: ED Accession Number: [id number] ?? Procedure: XR lumbar spine 2-3V Ordering Provider: Juan Overton D.O. PROCEDURE:? XR LUMBAR SPINE 2-3V ? INDICATIONS:? Fall with pain. ? TECHNIQUE:? 3 views of the lumbar spine were acquired.? ? COMPARISON:? None. ? FINDINGS:? ? Bones:? 5 [id number] vertebrae are present.? There is normal bony alignment.? There are several vertebral body compression fractures, located most superiorly at T12, wary moderate compression fracture without subluxation is present with an estimated 46% height reduction at the middle 3rd of the T12 vertebral body.? There is slight inferior bowing of the upper endplate of L1.? A moderate compression fracture with also approximately a 45% height reduction at the middle 3rd of the vertebral body is seen at L2.? There is slight superior endplate bowing at L3.? A [id number]-[id number]-fvniarif compression fracture is present at L4, with an estimated 35% height reduction when compared to the level immediately above.? At L5 there is approximately a 45% vertebral body compression fracture with reduction of the middle 3rd vertebral body height..? No suspicious bony lesions.? ? Soft tissues:? Overlying bowel gas pattern is normal.? No suspicious soft tissue calcifications.? ? ? IMPRESSION:? Multiple low thoracic and lumbosacral vertebral body compression fractures are present of uncertain chronicity.? MR scanning would allow accurate assessment for chronicity, which would be acute or subacute in the setting of vertebral body marrow edema in this clinical circumstance. ? ? Dictated by: Jason Huitron M.D. on 05/14/2021 at 20:45 ? ? Approved by: Jason Huitron M.D. on 05/14/2021 at 20:51?? Pelvis x-ray: Radiologist's Impression: [address] [address] XRay Report Signed Patient: Joseph Milan MR#: [id number] : 1945 Acct:[id number] Age/Sex: 75 / M Date of Service: 05/14/21 Loc: ED Accession Number: [id number] ?? Procedure: XR pelvis 1-2V Ordering Provider: Juan Overton D.O. PROCEDURE:? XR PELVIS 1-2V ? INDICATIONS:? fall with pain ? TECHNIQUE:? Single frontal view of the pelvis acquired.? ? COMPARISON:? None. ? FINDINGS:? ? Bones:? No fractures or dislocations.? No suspicious bony lesions.? ? Soft tissues:? Visualized bowel gas pattern is normal.? No suspicious soft tissue calcifications.? ? IMPRESSION:? No osseous trauma found. Follow-up by delayed plain film imaging may be warranted if unusual symptoms persist.? Alternatively, advanced imaging such as screening pelvic MRI scanning may become necessary.? ? Dictated by: Jason Huitron M.D. on 05/14/2021 at 20:30 ? ? Approved by: Jason Huitron M.D. on 05/14/2021 at 20:3 ECG Data Attestation: I personally reviewed and interpreted this ECG as follows: Prior ECG tracings: available for review Interpretation: Sinus tachycardia Ventricular rate 105 Normal axis QRS 72 milliseconds QTC [address] depressions V4 V5 No ST elevations Repeat EKG Sinus tachycardia Ventricular rate 107 Occasional PAC QRS 76 milliseconds QTC [address] depressions V4 V5 Very similar to prior EKG MDM Narrative Medical decision making narrative: Patient is afebrile but has a leukocytosis and elevated lactate and tachycardia. Was started on Rocephin. Cultures were obtained. Urinalysis concerning for urinary tract infection. Patient was not hypotensive however was started on fluids. Patient had multiple episodes here in the ER where he seems to have spasticity involving his upper lower extremities and bilateral however during these times which last 10-15 seconds he is coherent. He remembers the events. Is able to squeeze with his hands and also wiggle his toes. His states that this is not his normal seizure-like activity and he has not had a seizure in many years. Over the past several days he has had decline in has not been able to take his medication and has not had a seizure medication for the past 24 hours. Keppra was started. Head CT does not show any signs of acute pathology. He initially stated he was having back pain however on palpation he reports no back pain. He does have lumbar spine compression fractures and unsure how new these are however again he has no tenderness to palpation. I did discuss the case with neurology at [facility]. They stated that given the spasticity that he is having the fact that is bilateral however he remembers the events and can follow commands it is unlikely seizure activity. He recommended treating his infection and starting him on his anti seizure medication through the IV and also obtaining an MRI. Patient is a full code. Given his lab abnormalities, infection, weakness, patient does require admission of the hospital for further evaluation and treatment. I did discuss with the patient and his and they expressed understanding. Discussed the case with Dr. Mcnulty with Internal Medicine who will admit for further evaluation. Discharge Plan Departure Patient Disposition: Admitted As Inpatient Clinical Impression: Seizure-like activity, Acute kidney injury, Hypernatremia, Urinary tract infection, Weakness Admit Date/Time: 05/15/21 00:26 Admit Provider: Won Mcnulty
--- NOTE | 2021-05-14 20:25 | PC.NURSE ---
in to draw 2nd blood culture while talking to pt, pt started squeezing my hand, staring into space, pulling arms up next to body, upper body became stiff, episode lasted 1-2 min, the pt became tachycardiac, hypertensive and O2 sat dropped to 94%, then pt began answering questions again and body started to relax called for EKG
[2021-05-14 20:36] LABS: Prothrombin Time 11.5 SECONDS (10.1-12.7)
[2021-05-14 20:38] LABS: Alanine Aminotransferase 25 IU/L (<50); Albumin 4.3 g/dL (3.5-5.0); Albumin Globulin Ratio 1.2 (1.0-2.8); Alkaline Phosphatase 102 U/L (38-126); Aspartate Aminotransferase 31 IU/L (17-59); BUN Creatinine Ratio 35.7 (6-22); Bilirubin Total 0.6 mg/dL (0.2-1.3); Blood Urea Nitrogen 61 mg/dL (9-20); Calcium 10.1 mg/dL (8.4-10.2); Carbon Dioxide 25 mmol/L (22-32); Chloride 112 mmol/L (98-107); Creatine Kinase 102 U/L (55-170); Estimated Glomerular Filt Rate 39.4 mL/min (>60); Globulin 3.7 g/dL (1.7-4.1); Glucose 114 mg/dL (80-110); Lipase 20 U/L (23-300); PTT Partial Thromboplastin Tim 21 SECONDS (26.4-36.2); Potassium 3.9 mmol/L (3.4-5.1); Sodium 147 mmol/L (137-145)
[2021-05-14 20:50] LABS: Troponin I 0.022 ng/mL (0.01-0.034)
[2021-05-14 20:53] LABS: CKMB % Relative Index 0.5 % (1.5-5.0); Creatine Kinase MB 0.49 ng/mL (<2.37)
[2021-05-14 20:55] LABS: Procalcitonin 3.43 ng/mL (<0.5)
--- NOTE | 2021-05-14 21:00 | PC.NURSE ---
MD informed and in to evaluate pt
[2021-05-14 21:03] LABS: HEMOLYSIS 55 (0-50)
[2021-05-14 21:04] LABS: Hemoglobin 14.3 g/dL (13.5-17.5); Mean Corpuscular Hemoglobin 30.7 PG (26-34)
[2021-05-14 21:05] LABS: Red Blood Cell Count 4.66 X10^6/uL (4.5-5.9); White Blood Cell Count 13.8 X10^3/uL (4.5-11.0)
[2021-05-14 21:06] LABS: Add Manual Diff / Slide Review YES; Hematocrit 42.2 % (41-53); Mean Corpuscular HGB Conc 33.9 % (30-36); Mean Corpuscular Volume 90.6 fL (80-100); Red Cell Distribution Width 14.6 % (11.6-14.8)
[2021-05-14 21:07] LABS: Lactate (Lactic Acid) 4.5 mmol/L (0.7-2.1)
[2021-05-14 21:07] LABS: COVID19 -Nasal RAPID Negative (Negative)
[2021-05-14 21:11] LABS: Phenytoin / Dilantin < 3.0 ug/mL (10-20)
[2021-05-14] MEDS: SODIUM CHLORIDE 0.9% 1,000 ML 150 ML IV (21:29)
[2021-05-14] MEDS: cefTRIAXone 1,000 MG in SODIUM CHLORIDE 0.9% 100 ML 200 ML IV (21:29)
[2021-05-14] MEDS: MORPHINE 2 MG/ML INJ IV (21:29)
[2021-05-14 22:16] LABS: Reflexed Lactate in 2 Hours Y
[2021-05-14] MEDS: levETIRAcetam 1,000 MG in SODIUM CHLORIDE 0.9% 100 ML 440 ML IV (22:29)
[2021-05-14 23:13] LABS: Magnesium 2.1 mg/dL (1.6-2.3)
[2021-05-14 23:14] LABS: Bilirubin Urine UA NEGATIVE (NEGATIVE); Color Urine UA YELLOW; Glucose Urine UA NEGATIVE (Negative); Ketones Urine UA NEGATIVE (NEGATIVE); Leukocyte Esterase Urine UA 2+ (NEGATIVE); Nitrite Urine UA NEGATIVE (Negative); Occult Blood Urine UA 3+ (Negative); Protein Urine UA 2+ (Negative); Urobilinogen Urine UA 0.2 E.U./dL (0.2); pH Urine UA 8.5 (4.5-8.0)
--- NOTE | 2021-05-14 23:15 | PC.NURSE ---
pt cleaned of stool, open sore noted to head of penis, with open areas to the coccyx and right inner buttocks, pt denies any pain with these, pt did have another episode prior to this with incontinence of urine, MD was in to evaluate pt and speak with
[2021-05-14 23:19] LABS: Appearance Urine UA CLOUDY
[2021-05-14 23:23] LABS: Bacteria Urine Many (>30); Culture Indicated Urine Specimen Cultured; RBC Urine 1-5/HPF (0-5/HPF); WBC Urine 30-100/HPF (0-5/HPF)
[2021-05-14 23:32] LABS: Lactate 2HR (Lactic Acid Rflx) 2.5 mmol/L (0.7-2.1)
[2021-05-15] VITALS (19 sets, daily range): BP systolic 103–238; BP diastolic 59–133; PULSE 79–120; RESP 12–30; TEMP 36.9–37.3; O2SAT 96–99; BMI 18.2
[2021-05-15 00:25] LABS: Neutrophils Absolute Manual 10764 /uL (3000-5900); Total Cells Counted 100; Toxic Granulation Present
[2021-05-15 00:27] LABS: Platelet Estimate Adequate on smear
--- NOTE | 2021-05-15 01:18 | DI.MRI.S_ITS ---
PROCEDURE: MR HEAD/BRAIN WO CON INDICATIONS: Neurologic deficit TECHNIQUE: Noncontrast axial T1 spin echo, axial T2 fast spin echo, sagittal and axial FLAIR, coronal T2 fast spin echo, axial gradient echo, axial diffusion and ADC through the brain. COMPARISON: [facility], CT, CT HEAD/BRAIN WO CON, 02/04/2019, 14:10. FINDINGS: Cerebrum, Cerebellum and Brainstem: Moderate cerebral and cerebellar volume loss as well as severe confluent hyperintensity in the deep and subcortical white matter present. The diffusion sequence is normal without evidence of acute infarct. old left cerebellar cortical infarct and lacunar infarcts in the right li several subcortical white matter infarcts noted in the frontal and parietal lobes. No intracranial hemorrhage, mass lesion or midline shift. Basal cisterns and foramen magnum contain appropriate anatomy and vascular flow voids. No evidence of dural or leptomeningeal thickening. Ventricles: Appropriate in size and position. No hydrocephalus. Skull Base: The bony sella, pituitary gland and infundibulum unremarkable. Clivus and craniovertebral relationships are appropriate. Visualized portions of the seventh and eighth cranial nerve complexes and internal auditory canals are within normal limits. Scalp and Calvarium: The scalp is unremarkable. Underlying calvarium has an appropriate marrow signal. Paranasal Sinuses: Visualized portions of the paranasal sinuses are clear. Mastoids: Unremarkable as visualized. No mastoid effusion present. Orbits: The orbits, globes and ocular muscles are unremarkable. IMPRESSION: 1. Moderate atrophy without acute infarct, hemorrhage or mass lesion. 2. Diffuse confluent white matter hyperintensity most likely sequelae of advanced chronic ischemic change. 3. Multifocal white matter old lacunar infarcts as well as old cortical left cerebellar infarct Approved by: Palomo Rodriguez M.D. on 05/15/2021 at 7:57
--- NOTE | 2021-05-15 01:18 | DI.MRI.S_ITS ---
PROCEDURE: MR CERVICAL SPINE WO CON INDICATIONS: fall, upper extremity spasticity TECHNIQUE: Noncontrast sagittal T1 spin echo and T2 fast spin echo, sagittal STIR, foraminal oblique sagittal T2 fast spin echo, and axial gradient echo or T2 fast spin echo through the cervical spine. COMPARISON: None. FINDINGS: Image quality: Excellent. Alignment and Curvature: Reversal of the normal cervical lordosis may be related to muscle spasm. Bone Marrow: Marrow demonstrates normal overall signal. Spinal Cord: Visualized spinal cord has normal size and signal. No cerebellar tonsillar herniation. Paraspinous Soft Tissues: No paravertebral masses. Prevertebral soft tissues are normal in thickness. C2-C3: Disc height is maintained. No central or foraminal stenosis C3-C4: Mild disc space narrowing with posterior disc bulge results in mild central stenosis. No foraminal stenosis. C4-C5: Mild disc space narrowing and posterior disc osteophyte complex results in mild central stenosis. Moderate left and no right foraminal stenosis. C5-C6: Disc space narrowing with posterior disc osteophyte complex and hypertrophic uncovertebral joints results in mild central stenosis. There is moderate left and no right foraminal stenosis C6-C7: Disc space narrowing posterior disc osteophyte complex results in moderate central stenosis. Hypertrophic facet joints associated with moderate right and severe left foraminal stenosis. C7-T1: Disc height is maintained. No central or foraminal stenosis IMPRESSION: Multilevel degenerative disc disease and arthropathy results in varying degrees of central and foraminal stenosis including moderate right and severe left foraminal stenosis at C6-7. Approved by: Palomo Rodriguez M.D. on 05/15/2021 at 8:01
--- NOTE | 2021-05-15 01:21 | DI.US.S_ITS ---
PROCEDURE: US RENAL COMPLETE INDICATIONS: FABRIZIO TECHNIQUE: Real-time scanning was performed of the kidneys and bladder, with image documentation. COMPARISON: None. FINDINGS: Kidneys: Kidneys are normal in size. Right kidney measures 8.9 cm long; left kidney measures 10.3 cm long. Right renal cortical thickness is 1.3 cm; left renal cortical thickness is 1.4 cm. Renal cortical echotexture is normal. No hydronephrosis or nephrolithiasis. No suspicious solid mass lesions. Bladder: Bladder is nondistended Miscellaneous: No free pelvic fluid. IMPRESSION: Unremarkable ultrasound the kidneys Approved by: Palomo Rodriguez M.D. on 05/15/2021 at 8:39
[2021-05-15 01:38] LABS: Sodium Urine Random 102 mmol/L (30-90)
[2021-05-15 01:42] LABS: Creatinine Urine Random 116.1 mg/dL
[2021-05-15] MEDS: SODIUM CHLORIDE 0.9% 1,000 ML 150 ML IV (01:54)
--- NOTE | 2021-05-15 02:53 | PM.HP.1 ---
History of Present Illness History of Present Illness Date Patient Seen: 05/15/21 Time Patient Seen: 01:00 Chief complaint: sob/ unable to walk Narrative: Mr. Milan is a 75M with PMH CVA with left sided weakness, seizure disorder, HTN, anemia, cognitive impiarment who presents with recent fall and progressive weakness. Per his who provides history he sometimes has difficulty in expressing symptoms he is having, he often does not make family aware of changes in symptoms. He had been seemingly fine until Sunday he was noted to be less alert than usual, then had a collapse and fall forward. He has been having back pain since then and has had trouble breathing prior to coming in to the hospital. He has had previous issues with dilantin toxicity and has been in the process of titrating off this medication. Per his he has not had other complaints of coughing, nausea, vomiting, diarrhea, dysuria, fevers/chills. He presented to the ED and was noted to be difficult to place in vehicle by family and remove from vehicle by ED staff due to generalized weakness and apparent rigidity or spasticity In the ED workup was done, vitals were notable for tachycardia. He was noted to have multiple episodes witnessed by staff where he would become tense and rigid. There was a question of possible seizures, however, patient had not altered consciousness and his appearance was consistent with overall spasticity and not generalized tonic clonic movements. The episodes happened multiple times in the ED and lasted less than a minute and self resolved. Each time he was noted to be alert, following commands, and able to move all extremities. He denied pain during this period, and could provide no significant description of his symptoms. His was at bedside who noted his previous seizures included, drooling, staring blankly, and generalized tonic clonic movements. She has never witnessed episodes like those in the ED. Labs were notable for WBC 13.8, 15% bands. Na 147, BUN 61, creatinine 1.71. Lactate was 4.5 improved to 2.5 with IV fluids. Calcium 10.1. Procalcitonin 3.43. Phenytoin level undetectable. UA showed WBC, leuk esterase, and bacteria. Chest xray showed no acute process. CT head showed no acute process. Lumbar xray showed multiple verterbral compression fractures of unknown chronicity. Pelvic xray showed no acute process. He was ordered IV fluids and antibiotics and for keppra. Neurology was consulted at [facility] and did not think this was a seizure episode and did not think patient needed transfer. He was admitted for further treatment. Patient History Medical History CVA, old, alterations of sensations History of small bowel obstruction Hypertension Iron deficiency anemia Seizure disorder Surgical History History of appendectomy History of bowel resection History of colonoscopy with polypectomy Family & Social History Family History Father Cancer Social History: household members spouse Prior Living Arrangements House Safety & Behavioral: Feels Safe in Current Yes Environment Been Physically Hurt or No Threatened By a Person Suicidal Ideation Description None Suicide Plan Description No Plan Tobacco & Substance use: Smoking Status Former smoker alcohol intake never alcohol intake frequency 0-2 drinks per day Substance Use Type does not use Meds Home Medications and Allergies Home Medications Medication Instructions Recorded Confirmed Type Disabled Parking Permit 1 ea MISCELLANEOUS DIRECTED 12/25/17 05/15/21 History felodipine 10 mg tablet,extended 10 mg PO DAILY 12/25/17 05/15/21 History release 24 hr ferrous sulfate 324 mg (65 mg 1 tab PO DAILY 12/25/17 05/15/21 History iron) tablet,delayed release fluoxetine 10 mg capsule 30 mg PO DAILY 12/25/17 05/15/21 History levetiracetam 500 mg tablet 750 mg PO BID 12/25/17 05/15/21 History lisinopril 20 mg tablet 20 mg PO DAILY 12/25/17 05/15/21 History loratadine 10 mg tablet 10 mg PO DAILY PRN 12/25/17 05/15/21 History mirtazapine 30 mg tablet 30 mg PO BEDTIME 12/25/17 05/15/21 History omeprazole 20 mg capsule,delayed 20 mg PO DAILY 05/15/21 05/15/21 History release Allergies Allergy/AdvReac Type Severity Reaction Status Date / Time vancomycin [VANCOMYCIN] Allergy Unknown VANCO Verified 02/04/19 13:30 ALLERGY ON SN[facility] FACE SHEET Review of Systems Review of Systems Narrative: 14 systems reviewed and negative aside from HPI Exam Vital Signs (past 8 hours): - 05/14/21 19:35 05/14/21 19:45 05/14/21 20:00 Temperature 98.9 F Pulse Rate 103 H 105 H 105 H Respiratory Rate 20 18 17 Blood Pressure 152/74 H Pulse Oximetry 97 97 100 05/14/21 20:25 05/14/21 20:30 05/14/21 20:53 Temperature Pulse Rate 121 H 105 H 120 H Respiratory Rate 8 L 18 15 Blood Pressure 246/121 H 244/127 H Pulse Oximetry 94 95 97 05/14/21 20:54 05/14/21 21:00 05/14/21 21:05 Temperature Pulse Rate 122 H 107 H 107 H Respiratory Rate 16 18 18 Blood Pressure 246/121 H 107/64 Pulse Oximetry 97 98 98 05/14/21 21:06 05/14/21 21:30 05/14/21 22:00 Temperature Pulse Rate 103 H 97 H 116 H Respiratory Rate 20 Blood Pressure 107/64 Pulse Oximetry 98 98 97 05/14/21 22:29 05/14/21 22:30 05/14/21 23:00 Temperature Pulse Rate 89 90 95 H Respiratory Rate 14 Blood Pressure 128/60 119/61 114/66 Pulse Oximetry 98 98 100 05/14/21 23:15 05/14/21 23:30 05/15/21 00:00 Temperature 99.6 F Pulse Rate 85 120 H Respiratory Rate 11 L 30 H Blood Pressure 131/69 238/133 H Pulse Oximetry 98 96 05/15/21 00:19 05/15/21 00:30 05/15/21 01:00 Temperature Pulse Rate 112 H 86 106 H Respiratory Rate 12 19 Blood Pressure 156/118 H 103/59 L Pulse Oximetry 97 99 99 05/15/21 01:01 05/15/21 01:13 05/15/21 01:21 Temperature Pulse Rate 94 H Respiratory Rate 12 Blood Pressure 213/117 H 104/60 Pulse Oximetry 99 97 05/15/21 01:50 Temperature 98.9 F Pulse Rate 82 Respiratory Rate 16 Blood Pressure 110/65 Pulse Oximetry 97 Oxygen Delivery Method Room Air Oxygen Flow Rate 0 Narrative Exam Narrative: GEN:?chronically ill appearing, cachectic HEENT:? Dry mucous membranes, PERRL. NECK: trachea midline, no JVD LUNGS: clear bilaterally no wheezes, rhonchi, rales CV: regular rate and rhythm, no murmurs ABD: Soft and nontender, normal bowel sounds EXT: no edema, moving all extremities NEURO: Alert and oriented to name only, following commands, no nuchal rigidity Objective Labs Result Diagrams: 05/15/21 05:47 05/14/21 20:00 Labs: Laboratory Results - last 24 hr 05/14/21 05/14/21 05/14/21 19:50 20:00 20:00 WBC 13.8 H RBC 4.66 Hgb 14.3 Hct 42.2 MCV 90.6 MCH 30.7 MCHC 33.9 RDW 14.6 Plt Count Not Reportable Neut % (Auto) Not Reportable Lymph % (Auto) Not Reportable Williams % (Auto) Not Reportable Eos % (Auto) Not Reportable Baso % (Auto) Not Reportable Lymph # (Auto) Not Reportable Williams # (Auto) Not Reportable Baso # (Auto) Not Reportable Total Counted 100 Seg Neutrophils % 63.0 Band Neutrophils % 15.0 H Lymphocytes % (Manual) 15.0 L Monocytes % (Manual) 7.0 Neutrophils # (Manual) 48360 H Toxic Granulation Present H Platelet Estimate Adequate on smear RBC Morphology See below PT 11.5 INR 1.0 APTT 21 L D Sodium Potassium Chloride Carbon Dioxide BUN Creatinine Estimated GFR BUN/Creatinine Ratio Glucose Lactate Calcium Magnesium Total Bilirubin AST ALT Alkaline Phosphatase Total Creatine Kinase CK-MB (CK-2) CK-MB (CK-2) Rel Index Troponin I Total Protein Albumin Globulin Albumin/Globulin Ratio Lipase Procalcitonin Urine Color Urine Appearance Urine pH Ur Specific Franklin Urine Protein Urine Glucose (UA) Urine Ketones Urine Occult Blood Urine Nitrate Urine Bilirubin Urine Urobilinogen Ur Leukocyte Esterase Urine RBC Urine WBC Urine Bacteria Ur Culture Indicated? Ur Random Sodium Urine Creatinine Phenytoin SARS-CoV-2 (PCR) Negative 05/14/21 05/14/21 05/14/21 20:00 20:00 20:00 WBC RBC Hgb Hct MCV MCH MCHC RDW Plt Count Neut % (Auto) Lymph % (Auto) Williams % (Auto) Eos % (Auto) Baso % (Auto) Lymph # (Auto) Williams # (Auto) Baso # (Auto) Total Counted Seg Neutrophils % Band Neutrophils % Lymphocytes % (Manual) Monocytes % (Manual) Neutrophils # (Manual) Toxic Granulation Platelet Estimate RBC Morphology PT INR APTT Sodium 147 H Potassium 3.9 Chloride 112 H Carbon Dioxide 25 BUN 61 H Creatinine 1.71 H Estimated GFR 39.4 L BUN/Creatinine Ratio 35.7 H Glucose 114 H Lactate 4.5 H* Calcium 10.1 Magnesium Total Bilirubin 0.6 AST 31 ALT 25 Alkaline Phosphatase 102 Total Creatine Kinase 102 CK-MB (CK-2) 0.49 CK-MB (CK-2) Rel Index 0.5 L Troponin I 0.022 Total Protein 8.0 Albumin 4.3 Globulin 3.7 Albumin/Globulin Ratio 1.2 Lipase 20 L Procalcitonin 3.43 H Urine Color Urine Appearance Urine pH Ur Specific Franklin Urine Protein Urine Glucose (UA) Urine Ketones Urine Occult Blood Urine Nitrate Urine Bilirubin Urine Urobilinogen Ur Leukocyte Esterase Urine RBC Urine WBC Urine Bacteria Ur Culture Indicated? Ur Random Sodium Urine Creatinine Phenytoin < 3.0 L SARS-CoV-2 (PCR) 05/14/21 05/14/21 05/14/21 20:00 23:00 23:00 WBC RBC Hgb Hct MCV MCH MCHC RDW Plt Count Neut % (Auto) Lymph % (Auto) Williams % (Auto) Eos % (Auto) Baso % (Auto) Lymph # (Auto) Williams # (Auto) Baso # (Auto) Total Counted Seg Neutrophils % Band Neutrophils % Lymphocytes % (Manual) Monocytes % (Manual) Neutrophils # (Manual) Toxic Granulation Platelet Estimate RBC Morphology PT INR APTT Sodium Potassium Chloride Carbon Dioxide BUN Creatinine Estimated GFR BUN/Creatinine Ratio Glucose Lactate Calcium Magnesium 2.1 Total Bilirubin AST ALT Alkaline Phosphatase Total Creatine Kinase CK-MB (CK-2) CK-MB (CK-2) Rel Index Troponin I Total Protein Albumin Globulin Albumin/Globulin Ratio Lipase Procalcitonin Urine Color Urine Appearance Urine pH Ur Specific Franklin Urine Protein Urine Glucose (UA) Urine Ketones Urine Occult Blood Urine Nitrate Urine Bilirubin Urine Urobilinogen Ur Leukocyte Esterase Urine RBC Urine WBC Urine Bacteria Ur Culture Indicated? Ur Random Sodium 102 H Urine Creatinine 116.1 Phenytoin SARS-CoV-2 (PCR) 05/14/21 05/14/21 23:05 23:12 WBC RBC Hgb Hct MCV MCH MCHC RDW Plt Count Neut % (Auto) Lymph % (Auto) Williams % (Auto) Eos % (Auto) Baso % (Auto) Lymph # (Auto) Williams # (Auto) Baso # (Auto) Total Counted Seg Neutrophils % Band Neutrophils % Lymphocytes % (Manual) Monocytes % (Manual) Neutrophils # (Manual) Toxic Granulation Platelet Estimate RBC Morphology PT INR APTT Sodium Potassium Chloride Carbon Dioxide BUN Creatinine Estimated GFR BUN/Creatinine Ratio Glucose Lactate 2.5 H Calcium Magnesium Total Bilirubin AST ALT Alkaline Phosphatase Total Creatine Kinase CK-MB (CK-2) CK-MB (CK-2) Rel Index Troponin I Total Protein Albumin Globulin Albumin/Globulin Ratio Lipase Procalcitonin Urine Color Yellow Urine Appearance Cloudy Urine pH 8.5 H Ur Specific Franklin 1.020 Urine Protein 2+ H Urine Glucose (UA) Negative Urine Ketones Negative Urine Occult Blood 3+ H Urine Nitrate Negative Urine Bilirubin Negative Urine Urobilinogen 0.2 Ur Leukocyte Esterase 2+ H Urine RBC 1-5/hpf Urine WBC 30-100/hpf H Urine Bacteria Many (>30) H Ur Culture Indicated? Specimen cultured Ur Random Sodium Urine Creatinine Phenytoin SARS-CoV-2 (PCR) Assessment & Plan Assessment & Plan narrative: Mr. Milan is a 75M with PMH CVA, seizure disorder who presents with weakness found to have UTI. 1. Acute UTI -on admission WBC 13.8, procal >3, bandemia 15%, lactate 4.5 improved to 2.5 with treatment -UA 2+ LE, 30-100 WBC, many bacteremia -urine culture and blood culture pending -continue IV ceftriaxone -cxray negative for pneumonia, no meningeal signs 2. Acute kidney injury -secondary to hypovolemia from acute infection -continue IV fluids -continue IV antibiotics -ordered renal ultrasound, ordered urine sodium/creatinine -avoid nephrotoxins 3. Spasticity/tremulousness -etiology not clear, do not appear similar to previous seizure episodes as he is completely oriented -possibly myoclonus in setting of infection and renal dysfunction -possibly secondary to pain due to back injury -consider other etiology like CVA or spinal cord injury -ordered MRI brain and MRI c-spine -for now do not think he is indicated for EEG or LP -consider further spinal imaging 4. History of CVA with left sided weakness -continue home medications once reconciled -MRI brain ordered as noted above 5. Seizure disorder -continue keppra -for now continue dilantin at higher doses, but patient is in process of being weaned off and if confirmed episodes are not seizures can likely continue plan to wean off keppra as outpatient physicians is recommending 6. Hypertension -hold antihypertensives due to infection 7. Difficulty eating, poor appetite with severe protein calorie malnutrition -consult body component engineer -consult speech therapy 8. Vertebral fractures, unknown if acute/chronic -patient currently denies pain -ordered prn IV meds and lidocaine patch -ordered PT/OT eval CODE: Full Proxy: Fariba Milan, spouse I have utilized all available resources to reconcile patient's home medications. Time Spent With Patient Critical Care time: I spent a total of [] minutes of critical care time on this patient's care today; this time is exclusive of procedural time. Quality VTE Deep Vein Thrombosis/Pulmonary Embolism Present on Admission: No
[2021-05-15 06:07] LABS: Add Manual Diff / Slide Review NO; Basophils Absolute Auto 100 /uL (0-100); Basophils Percent Auto 0.4 % (0-2); Eosinophils Absolute Auto 0 /uL (0-450); Eosinophils Percent Auto 0.2 % (2-4); Hematocrit 38.8 % (41-53); Hemoglobin 12.8 g/dL (13.5-17.5); Lymphocytes Absolute Auto 1600 /uL (1100-4500); Lymphocytes Percent Auto 13.3 % (25-40); Mean Corpuscular Volume 90.9 fL (80-100); Monocytes Absolute Auto 800 /uL (0-900); Monocytes Percent Auto 6.8 % (3-14); Neutrophils Absolute Auto 9300 /uL (1500-7000); Neutrophils Percent Auto 79.3 % (50-75); Platelet Count 179 X10^3/uL (150-400); Red Blood Cell Count 4.26 X10^6/uL (4.5-5.9); Red Cell Distribution Width 14.2 % (11.6-14.8); White Blood Cell Count 11.8 X10^3/uL (4.5-11.0)
[2021-05-15 06:11] LABS: Lactate (Lactic Acid) 1.9 mmol/L (0.7-2.1)
[2021-05-15 06:15] LABS: Alanine Aminotransferase 18 IU/L (<50); Albumin 3.5 g/dL (3.5-5.0); Albumin Globulin Ratio 1.1 (1.0-2.8); Alkaline Phosphatase 85 U/L (38-126); Aspartate Aminotransferase 21 IU/L (17-59); BUN Creatinine Ratio 35.7 (6-22); Bilirubin Total 0.4 mg/dL (0.2-1.3); Blood Urea Nitrogen 50 mg/dL (9-20); Calcium 8.7 mg/dL (8.4-10.2); Carbon Dioxide 28 mmol/L (22-32); Chloride 116 mmol/L (98-107); Estimated Glomerular Filt Rate 49.7 mL/min (>60); Globulin 3.2 g/dL (1.7-4.1); Glucose 101 mg/dL (80-110); HEMOLYSIS < 15 (0-50); Potassium 3.6 mmol/L (3.4-5.1); Sodium 148 mmol/L (137-145); Total Protein 6.7 g/dL (6.3-8.2)
[2021-05-15 06:51] LABS: TSH w/ Reflex to FT4 1.19 uIU/mL (0.47-4.68)
--- NOTE | 2021-05-15 08:38 | PC.NURSE ---
05/15/2021 0125 Admit/NOC Shift Note-- Patient arrived to room via wheelchair from ER at 0125 with at his side. Admit questions done, Home medications found to already be updated, physical assessment done, and skin check completed. Patient alert and orient x2 with history of dementia. staying night in room with patient. Patient incontient, brief changed while checking skin. No complaints of pain or discomfort. No complaints of N/V. Oriented patient and to bed and bed controls,room, bathroom, lights, phone, menu, and call null/tv remote. Safety measures in place. Patient agreed to call for assistance. Patient with need frequent reminding to call for assistance. Bed alarm activated. Call null and phone within reach. Will continue to monitor.
[2021-05-15] MEDS: HEPARIN 5,000 UNIT/ML VIAL 5000 UNIT SUBCUT ×2 (09:36→20:53)
[2021-05-15] MEDS: DEXTROSE 5% WATER 1,000 ML 150 ML IV ×2 (09:36→17:08)
[2021-05-15] MEDS: LIDOCAINE PATCH 1 EACH ADH..PATCH TOP (09:37)
[2021-05-15] MEDS: PHENYTOIN 50 MG CHEW TAB 100 MG PO ×2 (09:47→20:54)
--- NOTE | 2021-05-15 10:39 | PT.IIE ---
Current Diagnoses Urinary tract infection, site not specified (05/15/21) Medical History (Last Reviewed 05/15/21 @ 06:10 by Juan Overton DO) CVA, old, alterations of sensations History of small bowel obstruction Hypertension Iron deficiency anemia Seizure disorder Physical Therapy Inpatient Evaluation/Re-Eval M1 PT/OT-IP Prior Functional Status Start: 05/15/21 08:18 Freq: NEEDED Status: Active Protocol: Document 05/15/21 10:39 AW (Rec: 05/15/21 12:12 AW [id number]) Medical Review Prior Functional Status Medical History Reviewed Yes Communication Pt acknowledges PT's presence and nods or gestures. Occasionally answers with one or two word responses. Answers to questions are provided primarily by pt's spouse who is rooming in. Mobility and Gait Pt uses a FWW or 4WW at all times. Mobility is largely limited to in the home. Pt uses a manual wheelchair propelled by family when he leaves the house. 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 Per spouse , pt can usually sit to stand and mobilize with walker SBA. Activities of Daily Living and IADL's Per spouse, pt requires occasional assist for UB and LB dressing. He only sponge bathes since the only shower is upstairs and pt does not use the stairs. Pt needs occasional assist for completeness with pericare. Prior Functional Level (Other details) Pt has had multiple falls at home. Social History Household Members spouse Living Arrangements House Number of Floors (Floors) Two Floors Number of Stairs To Enter/Railing? 2 SHILPA without rail. 12 steps to second level with bilateral rails. Pt stays downstairs where his hospital bed is located. Home Environment High Toilet Home Equipment Front Wheel Walker,Four Wheel Walker,Manual Wheelchair, Hospital Bed Employment Status Retired Additional Social History Comment Pt is retired from the [employer] and [employer]. He lives in [place] with his spouse, Fariba, and their son, Gee. Gee does not work outside the home and provides the majority of assist. M2 PT-IP Current Condition Start: 05/15/21 08:18 Freq: NEEDED Status: Active Protocol: Document 05/15/21 10:39 AW (Rec: 05/15/21 12:12 AW [id number]) Physical Therapy Current Condition Current Condition Evaluation Date 05/15/21 Treatment Diagnosis UTI, vertebral compression fx; rigidity; impaired mobility and gait Onset Date 05/14/21 M3 PT-IP Subjective Start: 05/15/21 08:18 Freq: NEEDED Status: Active Protocol: Document 05/15/21 10:39 AW (Rec: 05/15/21 12:12 AW [id number]) Subjective Physical Therapy Visit Type Type Initial Evaluation Visit Start Time 10:02 Visit Stop Time 10:39 Total Visit Minutes 37 Notes Pt's spouse, Fariba, was present throughout this encounter. She was distracted with a live [employer] service on her iPad but contributed to history when directly engaged by PT. Physical Therapy Visit Comments Patient Comments Pt nods and gestures his willingness to participate and his interest in getting up to the chair. Patient Goals Unable to articulate. Pt does agree that he is open to SNF rehab if needed. Therapy Pain Assessment Pain When Pain Assessed During Mobility Pain Present Pain Present Unable to Respond FLACC Pain Scale Face Occasional grimace/frown Legs Uneasy, restless, tense Activity Arching, rigid, jerking Cry No cry (awake or asleep) Consolability Reassurable with touch FLACC Total 5 M4 PT-IP Mobility and Gait Start: 05/15/21 08:18 Freq: NEEDED Status: Active Protocol: Document 05/15/21 10:39 AW (Rec: 05/15/21 12:12 AW [id number]) PT-Bed Mobility Assessment Supine to Sit Supine to Sit Maximum Assistance,1 Person Assistance,Head of Bed Elevated,Bedrails Scooting Scooting to Edge of Bed Maximum Assistance PT-Transfer Assessment Sit to and From Stand Sit to and from Stand Maximum Assistance,1 Person Assistance,2 Person Assistance ,Use of Upper Extremities Equipment Transfer Assistive Device Gait Belt Orthotic/Prosthetic Devices or Brace: No Transfers Transfer Destination Chair Transfer Technique Squat Pivot Transfer Ability Level of Assist Moderate Assistance,Maximum Assistance,1 Person Assistance ,Use of Upper Extremities Comments Mobility Comments Pt was lying in bed as PT arrived. BP 145/78 HR 80. Pt nodded agreement to participate and gestured toward chair. With HOB elevated, pt required max assist to scoot toward right side of bed and to scoot forward to get feet on the floor. BLE rigidity was apparent in sitting and PT was unable to flex pt's knees past ~60 degrees. With PT blocking pt's feet, he attempted to stand but held his weight posteriorly and was unable to extend knees or hips to safely stand with FWW. Pt continued to gesture toward the chair. PT explained squat pivot transfer and pt nodded that he understood. PT provided max assist using gait belt to assist with squat pivot transfer to pt's right side. Assisted pt to settle into the chair and reclined him as far back as chair allows. Provided warm blankets and pt was resting peacefully as PT departed. Gait Assessment Comments Gait Comments Pt not able to fully extend knees/hips to stand. Unsafe for gait at this time. PT-Balance Assessment Sitting Balance and Reactions Static Sitting Balance Ability Fair Dynamic Sitting Balance Ability Poor Standing Balance and Reactions Static Standing Balance Ability Poor Dynamic Standing Balance Ability Poor Device Used FWW M5 PT-IP Objective Assessments Start: 05/15/21 08:18 Freq: NEEDED Status: Active Protocol: Document 05/15/21 10:39 AW (Rec: 05/15/21 12:12 AW [id number]) Orientation Orientation/Cognition Level of Alertness Confusional State Orientation Name Gross Range of Motion Lower Extremity ROM Assessment Bilaterally Impaired Impairments B knees affected by tone. PROM lacking extension and unable to flex knees past ~60 degrees . Strength Comments Strength Comments Unable to formally assess due to tone and cognition. Muscle Tone Muscle Tone WNL No Comments Muscle Tone Comments Rigidity noted in BLE with pt unable to flex kneed actively or passively past ~60 degrees. Modified Baljeet Scale 1+ bilaterally. UE not assessed. M6 PT-IP Treatment Start: 05/15/21 08:18 Freq: NEEDED Status: Active Protocol: Document 05/15/21 10:39 AW (Rec: 05/15/21 12:12 AW [id number]) Physical Therapy Treatment Education Education Provided Safety M7 PT-IP Assessment and Plan Start: 05/15/21 08:18 Freq: NEEDED Status: Active Protocol: Document 05/15/21 10:39 AW (Rec: 05/15/21 12:12 AW [id number]) PT Summary Assessment and Plan Potential Rehabilitation Potential Fair Status of Condition at Evaluation Evolving Summary Impairments ROM,Strength,Balance,Cognition ,Bed Mobility,Transfers,Gait Assessment Summary Joseph is a 75 yo man with history of CVA who is admitted with UTI, FABRIZIO, and increased tone of unknown etiology. Per pt's spouse, pt is typically able to manage bed mobility, standing, and walking with walker SBA. On assessment, pt' s mobility is affected by increased BLE tone (modified Baljeet scale 1+), gross weakness, and poor motor control. He required max assist for bed mobility and squat pivot transfer. He was unsafe for standing transfer or gait. Pt will likely require SNF rehab to improve mobility independence before return to home with family assist. Goals Bed Mobility Goal Standby Assistance Transfer Goal Standby Assistance,Front Wheeled Walker Gait Goal Standby Assistance,Front Wheel Walker Gait Distance 100 Other Goals - up/down 2 steps without rail CGA Days to Meet Goals 10 Frequency of Treatment Frequency Of Treatment Once a Day Treatment Plan Physical Therapy Treatment Plan Bed Mobility Training,Transfer Training,Gait Training, Therapeutic Exercise,Balance Retraining,Discharge Planning, Neuromuscular Re-ed, Coordination Retraining Other Recommendations and Next Treatment transfers; re-assess tone ( Focus including UE); sit to stand Precautions Other Precautions falls; seizures Recommendations To Nursing Amount of Assist Needed 2 Person Assist Discharge Recommendations PT Discharge Recommendations SNF Rehab Transportation Needs at Discharge Wheelchair/Cabulance
--- NOTE | 2021-05-15 11:23 | CM.DANOTE ---
Addendum entered by Estela Varghese R.N. 05/15/21 15:27: Had Dr. Valladaers sign face to face for home health. Updated him regarding P.T, and he indicated, he may improve while he is here before going home. Addendum entered by Estela Varghese R.N. 05/15/21 15:12: P.T. notes completed, patient is max assist with transfers. He does have a hospital bed at home. Patient does have history of dementia as well. He did work with P.T. Went ahead and sent referrals over to [facility], [facility] and . He would be eligable for assisted by 05/18. He does have good support at home as well. He may improve with therapy and potentially go home with home health. Will need to follow closely. Due to cognitive impairments, may be a barrier for assisted. Original Note: DCP: Case received, EMR reviewed and met with patient. Spouse, Fariba, was at bedside by the window, had slept in room. Introduced self and role. Was able to obtain some information regarding patient's baseline activity level at home. DCP assessment completed with information currently available. Patient is a 75 year old male who admitted early this morning to the care of the hospitalist team. PCP: Dr. Nix. Payer: confirmed: Medicare/[employer]. Patient came to the hospital via private vehcle secondary to having some left sided weakness. He had noted recent falls at home. Patient does have history of CVA with left sided weakness, as well as seizure disorders, and cognitive impairment. Patient does hold current diagnosis of Acute UTI, acute kidney injury secondary to hypovolemia. He is to be having an MRI today. Met briefly with patient and spouse. Patient was sitting up in bed, confused. Asked him a couple of times if his name was Joseph. Spouse, had been sleeping in room intervened. They both reside in [place]. Patient does not drive due to cognitive impairment history, and history of seizures. He does have a walker at home for use. Asked spouse if patient had ever had any home health before, and she indicated, he did with [facility]. According to past admission, patient went to [facility]. He is to be working with the therapy team today. P: DCP to continue to follow. Will see how he does with P.T. He may benefit with [facility] as well. Estela Varghese RN/Cream Beater Discharge Planning/Care Management CM Discharge Assessment Start: 05/15/21 11:18 Freq: Status: Active Protocol: Document 05/15/21 11:18 (Rec: 05/15/21 11:23 [id number]) Discharge Planning Assessment Assigned Concrete Float Maker Estela Varghese RN/C[employer] Advance Directives? Yes Advance Directives on File No History Provided By Patient,Medical Record Prior Living Arrangements House Household Members spouse Type of transporation used prior to Relies on Others admit Is patient alert and oriented? Yes Needs Assistance With Meal Prep,Managing Medications ,Home Chores / Shopping Caregiver for Another No DME Already Rented / Owned FWW / Walker Patient/Family Preference Home with Home Health Comment Will see how he does with the therapy team. Barriers to Discharge Yes Comment Frequent falls at home. If he does need assisted, may be challenging to place. Discharge Plan Home with Home Health Transportation Arrangement family Additional Comment Will have to see how patient does with the therapy team. Whiteboard Updated in Patient Room with Yes name and ext. # of Concrete Float Maker Review Status In Process Next Review Type Continued Stay Review
[2021-05-15] MEDS: levETIRAcetam 750 MG in SODIUM CHLORIDE 0.9% 100 ML 430 ML IV ×2 (11:27→21:37)
[2021-05-15] MEDS: cefTRIAXone 2,000 MG in SODIUM CHLORIDE 0.9% 100 ML 200 ML IV (20:53)
[2021-05-16] VITALS (17 sets, daily range): BP systolic 139–169; BP diastolic 73–94; PULSE 75–90; RESP 14–18; TEMP 36.3–37.5; O2SAT 94–100
[2021-05-16] MEDS: DEXTROSE 5% WATER 1,000 ML 150 ML IV ×2 (00:35→09:26)
--- NOTE | 2021-05-16 05:27 | PC.NURSE ---
Pt took all his IV lines off. appears to be more confused this am, asking for scissors to remove his gown. report given to CJ. coordinator aware that pt is more confused.
[2021-05-16 07:26] LABS: Add Manual Diff / Slide Review NO; Basophils Absolute Auto 100 /uL (0-100); Basophils Percent Auto 0.8 % (0-2); Eosinophils Absolute Auto 100 /uL (0-450); Eosinophils Percent Auto 0.9 % (2-4); Hematocrit 37.7 % (41-53); Hemoglobin 12.8 g/dL (13.5-17.5); Lymphocytes Absolute Auto 1600 /uL (1100-4500); Lymphocytes Percent Auto 17.5 % (25-40); Mean Corpuscular Hemoglobin 30.7 PG (26-34); Mean Corpuscular Volume 90.3 fL (80-100); Monocytes Absolute Auto 700 /uL (0-900); Monocytes Percent Auto 8.1 % (3-14); Neutrophils Absolute Auto 6600 /uL (1500-7000); Neutrophils Percent Auto 72.7 % (50-75); Platelet Count 175 X10^3/uL (150-400); Red Blood Cell Count 4.17 X10^6/uL (4.5-5.9); Red Cell Distribution Width 14.2 % (11.6-14.8)
[2021-05-16 07:58] LABS: BUN Creatinine Ratio 31.6 (6-22); Blood Urea Nitrogen 30 mg/dL (9-20); Calcium 8.8 mg/dL (8.4-10.2); Carbon Dioxide 23 mmol/L (22-32); Chloride 107 mmol/L (98-107); Estimated Glomerular Filt Rate > 60.0 mL/min (>60); Glucose 84 mg/dL (80-110); HEMOLYSIS < 15 (0-50); Potassium 3.3 mmol/L (3.4-5.1); Sodium 138 mmol/L (137-145)
[2021-05-16] MEDS: LIDOCAINE PATCH 1 EACH ADH..PATCH TOP (08:54)
[2021-05-16] MEDS: HEPARIN 5,000 UNIT/ML VIAL 5000 UNIT SUBCUT ×2 (08:54→20:12)
[2021-05-16] MEDS: PHENYTOIN 50 MG CHEW TAB 100 MG PO (08:55)
[2021-05-16] MEDS: levETIRAcetam 750 MG in SODIUM CHLORIDE 0.9% 100 ML 430 ML IV (09:38)
[2021-05-16] MEDS: POTASSIUM CHLORIDE 20 MEQ TAB 40 MEQ PO ×2 (12:20→17:24)
--- NOTE | 2021-05-16 12:25 | ST.IPIE ---
Visit Care Team Role Provider Type Gemini Nix MD Primary Care Provider Non-Staff Specialty: Internal Medicine Address: [address] [place] [address], [id number] Email: Juan Overton DO Emergency Provider Physician Referring Provider Specialty: Emergency Medicine Address: [address] [place] [address], [id number] Email: [email or web address] MD Admit Provider Physician Attending Provider Specialty: Hospitalist Address: [address] [place] [address], [phone] Fax: Email: [email or web address] Diagnoses Urinary tract infection, site not specified (05/15/21) Past Medical History (Last Reviewed 05/15/21 @ 06:10 by Juan Overton DO) CVA, old, alterations of sensations (Medical) History of appendectomy (Medical) 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 Won Mcnulty Reason for Referral Dysphagia Setting Assessment Location Acute Care Visit Type Note Type Initial evaluation Next Note Type Next Note Type Treatment Note Patient Information Identification Type Name,ID Card History Mr. Milan is a 75M with PMH CVA with left sided weakness, seizure disorder, HTN, anemia , cognitive impiarment who presented with recent fall and progressive weakness and was found to have UTI. Chest x-ray was negative for pneumonia. Head CT: Moderately severe brain parenchymal atrophy, previously present, but there is no evidence of acute or subacute stroke, hemorrhage, or mass. No perceptible change from the comparison prior head CTs in October and December of last year. Brain MRI: (1). Moderate atrophy without acute infarct, hemorrhage or mass lesion. (2 ). Diffuse confluent white matter hyperintensity most likely sequelae of advanced chronic ischemic change. (3). Multifocal white matter old lacunar infarcts as well as old cortical left cerebellar infarct. Subjective Observations The pt was awake and reclined in bed upon INSTRUCTIONAL DEVELOPER arrival. He was alone, without present. He greeted the INSTRUCTIONAL DEVELOPER and gave his name upon request . Throuhgout the evaluation, he was minimally but appropriately responsive in conversation with occasional difficulty articulating words. He was consistently fidgety with slow movements. He denied pain but stated, I don't feel up to snuff. He followed simple commands during oral peripheral exam without need of demonstration. He denied difficulty with oral intake. Reported by Patient Current Diet Regular,Thin liquids Baseline Feeding Method Needs some assistance Objective Assessment Mental Status Alert,Responsive,Cooperative, Confused Oral Integrity WFL Dentition Missing teeth,Decay Lip Function Within normal limits Observation of Lips at Rest Symmetrical Pucker Within normal limits Lip Retraction Within normal limits Alternating Pucker/Lip Retraction Within normal limits Tongue Function Mild impairment Observations of Tongue at Rest Within normal limits Tongue Protrusion Reduced range of motion, Reduced strength Tongue Lateralization Reduced range of motion, Reduced strength Jaw Function Within normal limits Observations of Jaw at Rest Within normal limits Jaw Opening Within normal limits Jaw Closing Within normal limits Jaw Lateralization Reduced range of motion Hard/Soft Palate Function Within normal limits Observations of Hard/Soft Palate Within normal limits Gag Reflex Within normal limits Nasality Within normal limits Phonation Within normal limits Food and Liquid Trials Position During Assessment Upright (90 degrees) Liquids Trialed Thin Solids Trialed Dysphagia Mechanical, Mechanical Soft Oral Phase Comments Pt exhibited slow and extensive mastication, possibly impacted by some missing molars, more likely d/ t cognitive impairments. Swallow was timely once triggered with no abnormal oral residue noted. Pt showed appropriate awareness of bread sticking to his teeth and independently cleared with lingual sweep and liquid wash. He self-fed with some assistance in holding food containers. Pharyngeal Impairment Within functional limits Pharyngeal Phase Comments No overt s/sx of aspiration were observed. Voice remained clear throughout. Mild increase in breath rate was noted with extensive mastication. Recommend mechanical soft textures and small bites to ease mastication burden and increase oral intake. Oral care was provided after trials. Pt able to brush teeth independently, swish and spit without difficulty. No oral residue was present in spit. Fatigue/Endurance Mild fatigue Findings Swallowing Function Within functional limits Contributing Factors to Swallow Reduced alertness or attention Impairment ,Reduced oral strength/ coordination/sensation, Mastication inefficiency Prognosis Good Based on Duration of symptoms/severity Comments Pt may be at mild risk of aspiration and/or inadequate nutrition/hydration. Recommendations Instrumental Assessment No Swallowing Treatment Yes Frequency Follow up 1-2 x over hospital stay to ensure diet tolerance. Recommended Solids Mechanical Soft Recommended Liquids Thin Safety Precautions/Swallowing Supervision needed for all Recommendations meals,Feed only when alert, Reduce distractions,Remain upright (90 degrees) during all oral intake,Needs verbal cues to use recommended strategies,Upright position at least 30 minutes after meals, Small bites and sips when eating,Slow rate; swallow between bites,Set-up assistance Medication Recommendations As Tolerated Discharge Recommendations Home,Other (comment) Comments 24-hr assistance/supervision; Dementia strategies Education Patient/Caregiver Education Described results of evaluation,Patient expressed understanding of evaluation, Patient expressed agreement with goals & treatment plans Goals Short-term Goals 1. The pt will follow safe swallow strategies with reminders as needed. Long-term Goals 1. The pt will tolerate least restrictive diet to meet his nutrition and hydration needs.
--- NOTE | 2021-05-16 12:35 | DIET.CONS ---
Addendum entered by Staci Ann 05/17/21 11:57: Despite ONS Ensure Original bid, pts POs remain <50%. Recc increasing ONS support via initiating Ensure Enlive bid to better meet pts nutrient needs. Updating Nutrition Dx based on findings: Nutrition Diagnosis: Severe Chronic Malnutrition r/t reduced situational awareness secondary to cognitive impairment aeb pt with dementia, BMI 18.2 (severe for age), pt consuming 10-25% meal trays, despite ONS intervention, pts POs remain <50%. Original Note: Dietary Consultation Note Admission Date: 05/15/2021 00:26 Assessment: 75y M with known dementia presents with SOB and unable to walk (rigidity/spasticity) referred to nutrition for poor appetite. Pts not in room when RD visited. Upon chart review, pt higher body weight than has been over 3y, however, pt with BMI 18.2 (severe for age). Pts POs this hospitalization 10-25%. Speech therapy saw pt this morning, recc Easy Chew Mech Soft diet as pt missing molars. Ht: 167.64 cm Wt: 51.256 kg BMI: 18.2 UBW: 46-50kg Last BM: 05/16/21 (05/16/21 09:36) MNA: Lionel Score: 14 Diet: 05/15/21 Breakfast Heart Healthy Diet Diet Modifications: 05/16/21 Lunch Easy to Chew/IDDSI7 Diet Diet Modifications: Supervision, Assistance as needed Nutrition Percent Meal Consumed 10% 05/16/21 09:00 Percent Meal Consumed 25% 05/15/21 19:12 Percent Meal Consumed 10% 05/15/21 12:40 Percent Meal Consumed 10% 05/15/21 08:50 Labs: RBC 4.17 X10^6/uL (4.5-5.9) L 05/16/21 06:50 Hgb 12.8 g/dL (13.5-17.5) L 05/16/21 06:50 Hct 37.7 % (41-53) L 05/16/21 06:50 Creatinine 0.95 mg/dL (0.66-1.25) 05/16/21 06:50 Lactate 1.9 mmol/L (0.7-2.1) 05/15/21 05:47 Nutrition Diagnosis: Moderate Chronic Malnutrition r/t reduced situational awareness secondary to cognitive impairment aeb pt with dementia, BMI 18.2 (severe for age), pt consuming 10-25% meal trays. Interventions: 1. recc following Speech therapy reccs for diet texture and setting up meal trays, frequent cuing. Important to present pt with meals, snacks, hydration opportunities rather than wait for him to ask. 2. Recc ONS Ensure Original after any meal where POs 50% or less. EER: 1530kcals (30kcal/kg), 55g PRO (1.1g/kg) Monitoring/Evaluations: POs Electronically Signed by: Staci Ann 05/16/21 12:35 Clinical Dietitian [address] [id number]
--- NOTE | 2021-05-16 12:44 | PT.IPTN ---
Current Diagnoses Urinary tract infection, site not specified (05/15/21) Physical Therapy Treatment Note M2 PT-IP Current Condition Start: 05/15/21 08:18 Freq: NEEDED Status: Active Protocol: Document 05/15/21 10:39 AW (Rec: 05/15/21 12:12 AW [id number]) Physical Therapy Current Condition Current Condition Evaluation Date 05/15/21 Treatment Diagnosis UTI, vertebral compression fx; rigidity; impaired mobility and gait Onset Date 05/14/21 M3 PT-IP Subjective Start: 05/15/21 08:18 Freq: NEEDED Status: Active Protocol: Document 05/16/21 12:21 KS (Rec: 05/16/21 14:26 KS [id number]) Subjective Physical Therapy Visit Type Type Treatment Note Visit Start Time 12:21 Visit Stop Time 12:44 Total Visit Minutes 23 Notes co treat w/ OT Number of SENIOR ACCOUNTING ANALYST Visits 1 Physical Therapy Visit Comments Patient Comments Pt requesting to get in chair. M4 PT-IP Mobility and Gait Start: 05/15/21 08:18 Freq: NEEDED Status: Active Protocol: Document 05/16/21 12:21 KS (Rec: 05/16/21 14:26 KS [id number]) PT-Bed Mobility Assessment Scooting Scooting to Edge of Bed Maximum Assistance PT-Transfer Assessment Sit to and From Stand Sit to and from Stand Maximum Assistance,1 Person Assistance,2 Person Assistance ,Use of Upper Extremities Equipment Transfer Assistive Device Gait Belt,Front Wheeled Walker Orthotic/Prosthetic Devices or Brace: No Transfers Transfer Destination Chair Transfer Technique Stand Step Pivot Transfer Ability Level of Assist Moderate Assistance,Maximum Assistance,2 Person Assistance ,Use of Upper Extremities Comments Mobility Comments Pt sitting EOB upon arrival and OT in room and pt wanting to get in chair. Pt Max A for scooting sideways in bed and Max A x2 for sit<>Stand w/ FWW . Pt unable to flex knees and required block of both feet to prevent sliding. Cues for upright posture, pt able to step feet back under himself and take sideways steps towards chair w/ FWW and Max A . Pt then performed 2 more sit <>stand w/ FWW, toes blocked, Max A x2 and was able to again take steps backward to keep legs underneath center. On first stand he stood upright 1 min Mod A and on second stance 1.5 min Mod A and cues. Pt performed 1x5 bilateral LAQs and left in chair w/ lunch and all needs in reach. Gait Assessment Comments Gait Comments Stand step pivot Max A only. PT-Balance Assessment Sitting Balance and Reactions Static Sitting Balance Ability Fair Dynamic Sitting Balance Ability Poor Standing Balance and Reactions Static Standing Balance Ability Poor Dynamic Standing Balance Ability Poor Device Used FWW M5 PT-IP Objective Assessments Start: 05/15/21 08:18 Freq: NEEDED Status: Active Protocol: Document 05/15/21 10:39 AW (Rec: 05/15/21 12:12 AW [id number]) Orientation Orientation/Cognition Level of Alertness Confusional State Orientation Name Gross Range of Motion Lower Extremity ROM Assessment Bilaterally Impaired Impairments B knees affected by tone. PROM lacking extension and unable to flex knees past ~60 degrees . Strength Comments Strength Comments Unable to formally assess due to tone and cognition. Muscle Tone Muscle Tone WNL No Comments Muscle Tone Comments Rigidity noted in BLE with pt unable to flex kneed actively or passively past ~60 degrees. Modified Baljeet Scale 1+ bilaterally. UE not assessed. M6 PT-IP Treatment Start: 05/15/21 08:18 Freq: NEEDED Status: Active Protocol: Document 05/16/21 14:26 KS (Rec: 05/16/21 14:26 KS [id number]) Physical Therapy Treatment Education Education Provided Safety M7 PT-IP Assessment and Plan Start: 05/15/21 08:18 Freq: NEEDED Status: Active Protocol: Document 05/16/21 12:21 KS (Rec: 05/16/21 14:26 KS [id number]) PT Summary Assessment and Plan Potential Rehabilitation Potential Fair Status of Condition at Evaluation Evolving Summary Impairments ROM,Strength,Balance,Cognition ,Bed Mobility,Transfers,Gait Assessment Summary Pt w/ some improvement in mobility today. Able to perform 3 total sit<>stands w/ FWW and max A x1-2 and stand step pivot w/ FWW max A and cues. Mobility continues to be limted by increased tone and weakness. He is unable to stand or ambulate on his own and will require SNF to improve strength, balance, and functional independence. Goals Bed Mobility Goal Standby Assistance Transfer Goal Standby Assistance,Front Wheeled Walker Gait Goal Standby Assistance,Front Wheel Walker Gait Distance 100 Other Goals - up/down 2 steps without rail CGA Days to Meet Goals 10 Frequency of Treatment Frequency Of Treatment Once a Day Treatment Plan Physical Therapy Treatment Plan Bed Mobility Training,Transfer Training,Gait Training, Therapeutic Exercise,Balance Retraining,Discharge Planning, Neuromuscular Re-ed, Coordination Retraining Other Recommendations and Next Treatment transfers; re-assess tone ( Focus including UE); sit to stand Precautions Other Precautions falls; seizures Recommendations To Nursing Amount of Assist Needed 2 Person Assist Discharge Recommendations PT Discharge Recommendations SNF Rehab Transportation Needs at Discharge Wheelchair/Cabulance
--- NOTE | 2021-05-16 12:44 | OT.IP.EVAL ---
Current Diagnoses Urinary tract infection, site not specified (05/15/21) Past Medical History (Last Reviewed 05/15/21 @ 06:10 by Juan Overton DO) CVA, old, alterations of sensations History of appendectomy History of bowel resection History of colonoscopy with polypectomy History of small bowel obstruction Hypertension Iron deficiency anemia Seizure disorder Surgical History (Last Reviewed 12/07/20 @ 17:08 by Sara Ritchie MD) History of appendectomy History of bowel resection History of colonoscopy with polypectomy Occupational Therapy Inpatient Evaluation/Re-Eval M1 PT/OT-IP Prior Functional Status Start: 05/15/21 08:18 Freq: NEEDED Status: Active Protocol: Document 05/16/21 14:49 CGR (Rec: 05/16/21 15:08 CGR [id number]) Medical Review Prior Functional Status Medical History Reviewed Yes Communication Pt acknowledges Ot's presence and nods or gestures. Occasionally answers with one or two word responses. Mobility and Gait Pt uses a FWW or 4WW at all times. Mobility is largely limited to in the home. Pt uses a manual wheelchair propelled by family when he leaves the house. 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 Per spouse , pt can usually sit to stand and mobilize with walker SBA. Activities of Daily Living and IADL's Per spouse, pt requires occasional assist for UB and LB dressing. He only sponge bathes since the only shower is upstairs and pt does not use the stairs. Pt needs occasional assist for completeness with pericare. Prior Functional Level (Other details) Pt has had multiple falls at home. Above information obtained by P.T. Social History Household Members spouse Living Arrangements House Number of Floors (Floors) Two Floors Number of Stairs To Enter/Railing? 2 SHILPA without rail. 12 steps to second level with bilateral rails. Pt stays downstairs where his hospital bed is located. Home Environment High Toilet Home Equipment Front Wheel Walker,Four Wheel Walker,Manual Wheelchair, Hospital Bed Employment Status Retired Additional Social History Comment Pt is retired from the [employer]. He lives in [place] with his spouse, Fariba, and their son, Gee. Gee does not work outside the home and provides the majority of assist. M1 PT/OT-IP Prior Functional Status Start: 05/16/21 14:49 Freq: NEEDED Status: Active Protocol: Document 05/16/21 14:49 CGR (Rec: 05/16/21 15:08 CGR [id number]) Medical Review Prior Functional Status Medical History Reviewed Yes Communication Pt acknowledges Ot's presence and nods or gestures. Occasionally answers with one or two word responses. Mobility and Gait Pt uses a FWW or 4WW at all times. Mobility is largely limited to in the home. Pt uses a manual wheelchair propelled by family when he leaves the house. 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 Per spouse , pt can usually sit to stand and mobilize with walker SBA. Activities of Daily Living and IADL's Per spouse, pt requires occasional assist for UB and LB dressing. He only sponge bathes since the only shower is upstairs and pt does not use the stairs. Pt needs occasional assist for completeness with pericare. Prior Functional Level (Other details) Pt has had multiple falls at home. Above information obtained by P.T. Social History Household Members spouse Living Arrangements House Number of Floors (Floors) Two Floors Number of Stairs To Enter/Railing? 2 SHILPA without rail. 12 steps to second level with bilateral rails. Pt stays downstairs where his hospital bed is located. Home Environment High Toilet Home Equipment Front Wheel Walker,Four Wheel Walker,Manual Wheelchair, Hospital Bed Employment Status Retired Additional Social History Comment Pt is retired from the [employer] and [employer]. He lives in [place] with his spouse, Fariba, and their son, Gee. Gee does not work outside the home and provides the majority of assist. M2 OT-IP Current Condition Start: 05/16/21 14:49 Freq: Status: Active Protocol: Document 05/16/21 14:49 CGR (Rec: 05/16/21 15:08 CGR [id number]) Occupational Therapy Current Condition Current Condition Evaluation Date 05/16/21 Treatment Diagnosis fall with weakness, rigidity/ spasticity, acute UTI, FABRIZIO myoclonus Diagnosis Onset Date 05/15/21 M3 OT- IP Subjective and Pain Start: 05/16/21 14:49 Freq: Status: Active Protocol: Document 05/16/21 14:49 CGR (Rec: 05/16/21 15:08 CGR [id number]) OT- Subjective Occupational Therapy Visit Type Type Initial Evaluation Visit Start Time 12:01 Visit Stop Time 12:44 Total Visit Minutes 43 Notes Partial co-treat with P.T. OT Pain Assessment Pain When Pain Assessed At Rest Pain Present Pain Present Denied Pain M4 OT- IP ADL's Start: 05/16/21 14:49 Freq: Status: Active Protocol: Document 05/16/21 14:49 CGR (Rec: 05/16/21 15:08 CGR [id number]) OT [id number]-[id number] General Evaluation Self-Feeding Ability Independent Areas Needing Assistance Cutting Food Comments OT Self-Feeding Comments seated in chair after set up OT ADL-Grooming General Evaluation Grooming Ability Standby Assistance Areas Needing Assistance Face Washing Comments OT Grooming Comments supine in bed OT ADL-Oral Care Comments Oral Care Comments not performed OT ADL-Dressing General Eval Lower Body Dressing Ability Total Assistance Areas Needing Assistance Socks OT ADL-Toileting General Evaluation Toileting Ability Total Assistance Areas Needing Assistance Perform Perineal Hygiene Comments OT Toileting Comments Pt had BM with movement to EOB . Pt needed total assist for pericare and donning of clean brief. OT ADL-Bathing Comments OT Bathing Comments not performed M5 OT- IP IADL's Start: 05/16/21 14:49 Freq: Status: Active Protocol: Document 05/16/21 14:49 CGR (Rec: 05/16/21 15:08 CGR [id number]) OT-Instrumental Activities of Daily Living Deficits IADL Deficits Identified Deficits Home Safety Awareness Awareness of Need for Assistance at Home Decreased Awareness Ability to Problem Solve Emergency Unable to Problem Solve Situations Medication Management Medication Management Caregiver Administers Money Management Money Management Caregiver Provides Assistance Meal Preparation Meal Preparation Caregiver Provides Assist Household Assistant Household Assistant Caregiver Provides Assist Driving Driving Comments Pt does not drive M6 OT- IP Functional Cognition Start: 05/16/21 14:49 Freq: Status: Active Protocol: Document 05/16/21 14:49 CGR (Rec: 05/16/21 15:08 CGR [id number]) Cognitive Factors Limiting Selfcare Function Cognitive Ability Level of Alertness Alert,Confusional State Patient Orientation Name,Place Attention Span Ability Unable to Focus,Unable to Sustain Attention Ability to Follow Commands Able to Follow One Step Commands with Increased Time, Able to Follow One Step Commands with Repetition Cognitive Comments Cognitive Assessment Comments Pt does not respond when he does not know the answer to questions. Pt appears to need extra processing time for simple requests. OT- Vision and Hearing OT- Hearing Assessment OT- Hearing Assessment WFL OT- Vision Assessment Visual Attentiveness WFL Occular Pursuits WFL Visual Convergence WFL M7 OT- IP Mobility and Balance Start: 05/16/21 14:49 Freq: Status: Active Protocol: Document 05/16/21 14:49 CGR (Rec: 05/16/21 15:08 CGR [id number]) OT- Bed Mobility Assessment Rolling Type of Rolling Roll to Right,Roll to Left Level of Assistance Maximum Assistance Supine to Sit Supine to Sit Assist Maximum Assistance,1 Person Assistance Scooting Scooting to Edge of Bed Maximum Assistance,1 Person Assistance OT-Transfer Assessment Sit to and From Stand Sit to and from Stand Maximum Assistance,1 Person Assistance,2 Person Assistance Transfers Transfer Ability Maximum Assistance,2 Person Assistance Technique Transfer Destination Bed,Chair Transfer Technique Stand Step Pivot Devices Transfer Assistive Devices Gait Belt,Front Wheeled Walker Comments Mobility Comments Performed 2 other sit to stands with max a x1-2 person. 2 person assist for transfer for safety. OT- Gait Assessment Comments Gait Ability Comments not performed OT- Balance Assessment Sitting Balance and Reactions Static Sitting Balance Ability Fair Dynamic Sitting Balance Ability Poor M8 OT- IP Objective Assessments Start: 05/16/21 14:49 Freq: Status: Active Protocol: Document 05/16/21 14:49 CGR (Rec: 05/16/21 15:08 CGR [id number]) OT Strength Comments Strength Comments 4/5 as seen with rolling in bed OT- Coordination Assessment Upper Extremity Finger to Nose Test Within Functional Limits Finger Tapping Test Bilateral UE Impaired OT-Muscle Tone Assessment Comments Muscle Tone Comments Pt with abnormal tensing of muscles or fluttering of eye lids at different times throughout session. OT Sensation Assessment Edema Edema Absent M9 OT- IP Assessment and Plan Start: 05/16/21 14:49 Freq: Status: Active Protocol: Document 05/16/21 14:49 CGR (Rec: 05/16/21 15:08 CGR [id number]) OT Summary Assessment and Plan Potential Rehabilitation Potential Fair Analytic Complexity at Evaluation High Summary OT Impairments Strength,Balance,Tone, Functional Cognition, Functional Mobility,Grooming, Dressing,Toileting,Bathing, Toilet Transfers,Shower Transfers,Activity Tolerance Progress Towards Goals Slow Progress due to Medical Issues,Slow Progress due to Cognition Assessment Summary Pt presents as a high complexity evaluation s/p admit for weakness, rigidity/ spasticity, acute UTI and FABRIZIO. Pt has a hx of L sided weakness and seziures. Pt appeared motivated to get out of bed today but had BM with bed mobility and required total assist for pericare. Pt then transfered to chair and performed sit to stand x2 once in the chair. Pt fatigues quickly but was able to stand for ~90 seconds. Pt was able to feed self with set up and left sitting in up in chair at end of session, chair fall alarm armed. Pt will benefit from SNF upon discharge. Goals Grooming Goal Independent Dressing Goal Independent Toileting Goal Independent Bathing Goal Independent Toilet Transfer Goal Independent Shower Transfer Goal Independent Days to Meet Goals 30 Frequency of Treatment Frequency Of Treatment Once a Day Treatment Plan OT Treatment Plan ADL Training,Functional Cognition Training,Functional Mobility,Therapeutic Exercises ,Patient/Family Education, Discharge Planning Other Treatment Recommendations and Next ADLs seated in chair Treatment Focus Discharge Recommendations OT Discharge Recommendations SNF Rehab Transportation Needs at Discharge Wheelchair/Cabulance
--- NOTE | 2021-05-16 13:49 | P.PN_ITS ---
Subjective Subjective Date Patient Seen: 05/16/21 Time Patient Seen: 08:00 Interval history: Today he notes he does feel weak. He has some back pain. Otherwise he has not had any witnessed seizure activity. Exam Vital Signs (past 8 hours): - 05/16/21 06:00 05/16/21 07:11 05/16/21 09:00 Temperature 98.6 F Pulse Rate 75 Respiratory Rate 14 Blood Pressure 142/89 H Pulse Oximetry 96 96 100 05/16/21 09:27 05/16/21 09:44 Temperature 99.0 F Pulse Rate 90 Respiratory Rate 16 Blood Pressure 164/79 H Pulse Oximetry 100 94 Oxygen Delivery Method Room Air Oxygen Flow Rate 0 Narrative Exam Narrative: GEN:?chronically ill appearing, cachectic HEENT:? PERRL, moist mucous membranes NECK: trachea midline, no JVD LUNGS: clear bilaterally no wheezes, rhonchi, rales CV: regular rate and rhythm, no murmurs ABD: Soft and nontender, normal bowel sounds EXT: no edema, moving all extremities NEURO: Alert and oriented to name only, following commands, no nuchal rigidity Objective Labs Result Diagrams: 05/16/21 06:50 05/16/21 06:50 Labs: Laboratory Results - last 24 hr 05/16/21 05/16/21 06:50 06:50 WBC 9.0 RBC 4.17 L Hgb 12.8 L Hct 37.7 L MCV 90.3 MCH 30.7 MCHC 34.0 RDW 14.2 Plt Count 175 Neut % (Auto) 72.7 Lymph % (Auto) 17.5 L Burnett % (Auto) 8.1 Eos % (Auto) 0.9 L Baso % (Auto) 0.8 Neut # (Auto) 6600 Lymph # (Auto) 1600 Burnett # (Auto) 700 Eos # (Auto) 100 Baso # (Auto) 100 Sodium 138 D Potassium 3.3 L Chloride 107 Carbon Dioxide 23 BUN 30 H Creatinine 0.95 Estimated GFR > 60.0 BUN/Creatinine Ratio 31.6 H Glucose 84 Calcium 8.8 PFSH Medical History CVA, old, alterations of sensations History of small bowel obstruction Hypertension Iron deficiency anemia Seizure disorder Surgical History History of appendectomy History of bowel resection History of colonoscopy with polypectomy Family History Father Cancer Social History household members: spouse Smoking Status: Former smoker alcohol intake: never Assessment & Plan Assessment & Plan narrative: Mr. Milan is a 75M with PMH CVA, seizure disorder who presents with weakness found to have UTI. 1. Acute UTI -on admission WBC 13.8, procal >3, bandemia 15%, lactate 4.5 improved to 2.5 with treatment -UA 2+ LE, 30-100 WBC, many bacteremia -urine culture with gram negative rods, and blood culture pending -continue IV ceftriaxone -cxray negative for pneumonia, no meningeal signs 2. Acute kidney injury, improving -secondary to hypovolemia from acute infection -continue IV fluids -continue IV antibiotics -ordered renal ultrasound, ordered urine sodium/creatinine -avoid nephrotoxins 3. Spasticity/tremulousness, improved -etiology not clear, do not appear similar to previous seizure episodes as he is completely oriented -possibly secondary to infection and metabolic response -ordered MRI brain and MRI c-spine which were negative for acute process -for now do not think he is indicated for EEG or LP -consider parkinson type etiology as well 4. History of CVA with left sided weakness -continue home medications once reconciled -MRI brain ordered as noted above 5. Seizure disorder -continue keppra -for now continue dilantin at higher doses, but patient is in process of being weaned off and if confirmed episodes are not seizures can likely continue plan to wean off keppra as outpatient physicians is recommending 6. Hypertension -hold antihypertensives due to infection 7. Difficulty eating, poor appetite with severe protein calorie malnutrition -consult process control operator -consult speech therapy 8. Vertebral fractures, unknown if acute/chronic -patient currently denies pain -ordered prn IV meds and lidocaine patch -ordered PT/OT eval CODE: Full Proxy: Fariba Milan, spouse I have utilized all available resources to reconcile patient's home medications. Time Spent With Patient Critical Care time: I spent a total of [] minutes of critical care time on this patient's care today; this time is exclusive of procedural time. Quality VTE Deep Vein Thrombosis/Pulmonary Embolism Present on Admission: No
[2021-05-16] MEDS: cefTRIAXone 2,000 MG in SODIUM CHLORIDE 0.9% 100 ML 200 ML IV (20:12)
[2021-05-16] MEDS: levETIRAcetam 250 MG TABLET 750 MG PO (20:13)
[2021-05-17] VITALS (18 sets, daily range): BP systolic 129–179; BP diastolic 81–99; PULSE 57–81; RESP 14–16; TEMP 36.8–37.7; O2SAT 97–100
[2021-05-17] MEDS: ACETAMINOPHEN 325 MG TABLET 650 MG PO (00:43)
[2021-05-17 05:35] LABS: Hematocrit 33.7 % (41-53); Hemoglobin 11.4 g/dL (13.5-17.5); Mean Corpuscular HGB Conc 33.9 % (30-36); Mean Corpuscular Hemoglobin 30.4 PG (26-34); Mean Corpuscular Volume 89.6 fL (80-100); Platelet Count 211 X10^3/uL (150-400); Red Blood Cell Count 3.77 X10^6/uL (4.5-5.9); Red Cell Distribution Width 14.2 % (11.6-14.8); White Blood Cell Count 7.3 X10^3/uL (4.5-11.0)
[2021-05-17 05:43] LABS: BUN Creatinine Ratio 21.6 (6-22); Blood Urea Nitrogen 21 mg/dL (9-20); Calcium 8.7 mg/dL (8.4-10.2); Carbon Dioxide 23 mmol/L (22-32); Chloride 112 mmol/L (98-107); Estimated Glomerular Filt Rate > 60.0 mL/min (>60); Glucose 86 mg/dL (80-110); HEMOLYSIS < 15 (0-50); Potassium 3.7 mmol/L (3.4-5.1); Sodium 138 mmol/L (137-145)
[2021-05-17] MEDS: levETIRAcetam 250 MG TABLET 750 MG PO (07:55)
[2021-05-17] MEDS: LIDOCAINE PATCH 1 EACH ADH..PATCH TOP (07:56)
[2021-05-17] MEDS: HEPARIN 5,000 UNIT/ML VIAL 5000 UNIT SUBCUT ×2 (07:56→21:37)
[2021-05-17] MEDS: lisinopriL 20 MG TABLET PO (09:17)
--- NOTE | 2021-05-17 11:15 | PT.IPTN ---
Current Diagnoses Urinary tract infection, site not specified (05/15/21) Physical Therapy Treatment Note M2 PT-IP Current Condition Start: 05/15/21 08:18 Freq: NEEDED Status: Active Protocol: Document 05/15/21 10:39 AW (Rec: 05/15/21 12:12 AW [id number]) Physical Therapy Current Condition Current Condition Evaluation Date 05/15/21 Treatment Diagnosis UTI, vertebral compression fx; rigidity; impaired mobility and gait Onset Date 05/14/21 M3 PT-IP Subjective Start: 05/15/21 08:18 Freq: NEEDED Status: Active Protocol: Document 05/17/21 11:01 KS (Rec: 05/17/21 12:51 KS [id number]) Subjective Physical Therapy Visit Type Type Treatment Note Visit Start Time 11:01 Visit Stop Time 11:15 Total Visit Minutes 14 Notes co treat w/ OT Number of OCCUP THER Visits 2 Physical Therapy Visit Comments Patient Comments Pt requesting to get in chair. M4 PT-IP Mobility and Gait Start: 05/15/21 08:18 Freq: NEEDED Status: Active Protocol: Document 05/17/21 11:01 KS (Rec: 05/17/21 12:51 KS [id number]) PT-Bed Mobility Assessment Rolling Type of Rolling Log Rolling,Roll to Right Level of Assist Maximal Assistance Supine to Sit Supine to Sit Maximum Assistance,1 Person Assistance,Bedrails Scooting Scooting to Edge of Bed Maximum Assistance PT-Transfer Assessment Sit to and From Stand Sit to and from Stand Maximum Assistance,1 Person Assistance,2 Person Assistance ,Use of Upper Extremities Equipment Transfer Assistive Device Gait Belt,Front Wheeled Walker Orthotic/Prosthetic Devices or Brace: No Transfers Transfer Destination Chair Transfer Technique Stand Step Pivot Transfer Ability Level of Assist Maximum Assistance,2 Person Assistance,Use of Upper Extremities Comments Mobility Comments Pt in bed and agreeable to transfer to chair. Max A and max cues for logroll and max A for sup<>sit. Pt requires toes blocked prior to standing due to limited knee flexion. Pt sit<>stand w/ FWW Max A x2 and stand step pivot to chaier Max Ax2 and max cues. When pt initially stands he must be cued to take steps backwards and stand upright to correct posterior lean and he was able to follow commands. After transfer, pt performed additional sit<>stand w/ FWW Max A x2 and was able to remain standing ~1 min and performed very minimal marching in place. Tactile cues to reach back for armrests when descending into chair. Pt left in chair w/ OT. Gait Assessment Comments Gait Comments Stand step pivot Max A only. PT-Balance Assessment Sitting Balance and Reactions Static Sitting Balance Ability Fair Dynamic Sitting Balance Ability Poor Standing Balance and Reactions Static Standing Balance Ability Poor Dynamic Standing Balance Ability Poor Device Used FWW M5 PT-IP Objective Assessments Start: 05/15/21 08:18 Freq: NEEDED Status: Active Protocol: Document 05/15/21 10:39 AW (Rec: 05/15/21 12:12 AW [id number]) Orientation Orientation/Cognition Level of Alertness Confusional State Orientation Name Gross Range of Motion Lower Extremity ROM Assessment Bilaterally Impaired Impairments B knees affected by tone. PROM lacking extension and unable to flex knees past ~60 degrees . Strength Comments Strength Comments Unable to formally assess due to tone and cognition. Muscle Tone Muscle Tone WNL No Comments Muscle Tone Comments Rigidity noted in BLE with pt unable to flex kneed actively or passively past ~60 degrees. Modified Baljeet Scale 1+ bilaterally. UE not assessed. M6 PT-IP Treatment Start: 05/15/21 08:18 Freq: NEEDED Status: Active Protocol: Document 05/17/21 11:01 KS (Rec: 05/17/21 12:51 KS [id number]) Physical Therapy Treatment Education Education Provided Safety M7 PT-IP Assessment and Plan Start: 05/15/21 08:18 Freq: NEEDED Status: Active Protocol: Document 05/17/21 11:01 KS (Rec: 05/17/21 12:51 KS [id number]) PT Summary Assessment and Plan Potential Rehabilitation Potential Fair Status of Condition at Evaluation Evolving Summary Impairments ROM,Strength,Balance,Cognition ,Bed Mobility,Transfers,Gait Assessment Summary Pt continues to require Max A x1-2 for mobility and transfers and max cues for all tasks. He can follow commands but does so slowly. Mobility is limted by increased tone and weakness. He remains unable to stand or ambulate on his own and will require SNF to improve strength, balance, and functional independence. Goals Bed Mobility Goal Standby Assistance Transfer Goal Standby Assistance,Front Wheeled Walker Gait Goal Standby Assistance,Front Wheel Walker Gait Distance 100 Other Goals - up/down 2 steps without rail CGA Days to Meet Goals 10 Frequency of Treatment Frequency Of Treatment Once a Day Treatment Plan Physical Therapy Treatment Plan Bed Mobility Training,Transfer Training,Gait Training, Therapeutic Exercise,Balance Retraining,Discharge Planning, Neuromuscular Re-ed, Coordination Retraining Other Recommendations and Next Treatment transfers; re-assess tone ( Focus including UE); sit to stand, ROM BLE Precautions Other Precautions falls; seizures Recommendations To Nursing Amount of Assist Needed 2 Person Assist Discharge Recommendations PT Discharge Recommendations SNF Rehab Transportation Needs at Discharge Wheelchair/Cabulance
--- NOTE | 2021-05-17 11:27 | OT.IP.TRT ---
Current Diagnoses Urinary tract infection, site not specified (05/15/21) Occupational Therapy Treatment Note M2 OT-IP Current Condition Start: 05/16/21 14:49 Freq: Status: Active Protocol: Document 05/16/21 14:49 CGR (Rec: 05/16/21 15:08 CGR [id number]) Occupational Therapy Current Condition Current Condition Evaluation Date 05/16/21 Treatment Diagnosis fall with weakness, rigidity/ spasticity, acute UTI, FABRIZIO myoclonus Diagnosis Onset Date 05/15/21 M3 OT- IP Subjective and Pain Start: 05/16/21 14:49 Freq: Status: Active Protocol: Document 05/17/21 12:46 CCC (Rec: 05/17/21 13:00 CCC [id number]) OT- Subjective Occupational Therapy Visit Type Type Treatment Note Visit Start Time 11:00 Visit Stop Time 11:27 Total Visit Minutes 27 Occupational Therapy Visit Comments Patient Comments Pt agreed to get up to the recliner. Patient/Caregiver Goals To go home. OT Pain Assessment Pain When Pain Assessed At Rest Pain Present Pain Present Denied Pain M4 OT- IP ADL's Start: 05/16/21 14:49 Freq: Status: Active Protocol: Document 05/17/21 12:46 CCC (Rec: 05/17/21 13:00 CCC [id number]) OT ADL-Grooming General Evaluation Grooming Ability Standby Assistance Areas Needing Assistance Combing/Brushing Hair Comments OT Grooming Comments Able to do while seating up in the recliner. Assist to get the left side of his head to brush out his hair. OT ADL-Oral Care Comments Oral Care Comments Increased time and cues to initiate steps and pt tends to perseverate. OT ADL-Dressing General Eval Lower Body Dressing Ability Total Assistance Areas Needing Assistance Socks Comments OT Dressing Comments Pt not able to bend his leg up enough to alexi his sock at this time. OT ADL-Toileting Comments OT Toileting Comments Nursing aid just completed getting pt cleaned up. OT ADL-Bathing Comments OT Bathing Comments not performed M5 OT- IP IADL's Start: 05/16/21 14:49 Freq: Status: Active Protocol: Document 05/16/21 14:49 CGR (Rec: 05/16/21 15:08 CGR [id number]) OT-Instrumental Activities of Daily Living Deficits IADL Deficits Identified Deficits Home Safety Awareness Awareness of Need for Assistance at Home Decreased Awareness Ability to Problem Solve Emergency Unable to Problem Solve Situations Medication Management Medication Management Caregiver Administers Money Management Money Management Caregiver Provides Assistance Meal Preparation Meal Preparation Caregiver Provides Assist Retail Store Manager Retail Store Manager Caregiver Provides Assist Driving Driving Comments Pt does not drive M6 OT- IP Functional Cognition Start: 05/16/21 14:49 Freq: Status: Active Protocol: Document 05/17/21 12:46 [facility] (Rec: 05/17/21 13:00 [facility] [id number]) Cognitive Factors Limiting Selfcare Function Cognitive Comments Cognitive Assessment Comments Pt needing increased time to process and follow commands. M7 OT- IP Mobility and Balance Start: 05/16/21 14:49 Freq: Status: Active Protocol: Document 05/17/21 12:46 [facility] (Rec: 05/17/21 13:00 [facility] [id number]) OT- Bed Mobility Assessment Supine to Sit Supine to Sit Assist Maximum Assistance,1 Person Assistance OT-Transfer Assessment Sit to and From Stand Sit to and from Stand Maximum Assistance,2 Person Assistance Transfers Transfer Ability Maximum Assistance,2 Person Assistance Technique Transfer Destination Bed,Chair Transfer Technique Stand Step Pivot Devices Transfer Assistive Devices Gait Belt,Front Wheeled Walker Comments Mobility Comments MAX A X 1 for bed mobility and assist x2 to get to his feet as pt having difficulty to bend his knee to increased the ease to stand. MAX AX 2 with FWW to the recliner. OT- Balance Assessment Sitting Balance and Reactions Static Sitting Balance Ability Fair Dynamic Sitting Balance Ability Poor Standing Balance and Reactions Static Standing Balance Ability Poor Dynamic Standing Balance Ability Poor M8 OT- IP Objective Assessments Start: 05/16/21 14:49 Freq: Status: Active Protocol: Document 05/17/21 12:46 [facility] (Rec: 05/17/21 13:00 [facility] [id number]) OT-Muscle Tone Assessment Comments Muscle Tone Comments Increased tone especially with his LE. M9 OT- IP Assessment and Plan Start: 05/16/21 14:49 Freq: Status: Active Protocol: Document 05/17/21 12:46 [facility] (Rec: 05/17/21 13:00 [facility] [id number]) OT Summary Assessment and Plan Potential Rehabilitation Potential Fair Analytic Complexity at Evaluation High Summary OT Impairments Strength,Balance,Tone, Functional Cognition, Functional Mobility,Grooming, Dressing,Toileting,Bathing, Toilet Transfers,Shower Transfers,Activity Tolerance Progress Towards Goals Slow Progress due to Medical Issues,Slow Progress due to Cognition Assessment Summary Pt is cooperative and would benefit from skilled rehab versus home with 23/10 assist and home health pending if his family is able to provide enough assist for him at this time. Goals Grooming Goal Standby Assistance Dressing Goal Minimal Assistance Toileting Goal Minimal Assistance Bathing Goal Minimal Assistance Toilet Transfer Goal Minimal Assistance Shower Transfer Goal Minimal Assistance Days to Meet Goals 29 Frequency of Treatment Frequency Of Treatment Once a Day Treatment Plan OT Treatment Plan ADL Training,Functional Cognition Training,Functional Mobility,Therapeutic Exercises ,Patient/Family Education, Discharge Planning Other Treatment Recommendations and Next ADLs seated in chair Treatment Focus Discharge Recommendations OT Discharge Recommendations SNF Rehab Transportation Needs at Discharge Wheelchair/Cabulance
[2021-05-17 12:04] LABS: Acinetobacter baumannii Not Detected (Not Detect); Enterobacteriaceae species Detected (Not Detect); Enterococcus species Not Detected (Not Detect); Listeria monocytogenes Not Detected (Not Detect); Staphylococcus species Not Detected (Not Detect); Streptococcus agalactiae (Gr B Not Detected (Not Detect); Streptococcus pneumonia Not Detected (Not Detect); Streptococcus pyogenes (Gr A) Not Detected (Not Detect); Streptococcus species Not Detected (Not Detect)
[2021-05-17 12:05] LABS: Candida albicans Not Detected (Not Detect); Candida glabrata Not Detected (Not Detect); Candida krusei Not Detected (Not Detect); Candida parapsilosis Not Detected (Not Detect); Candida tropicalis Not Detected (Not Detect); E. coli Not Detected (Not Detect); Enterobacter cloacae complex Not Detected (Not Detect); Haemophilus influenzae Not Detected (Not Detect); KPC (carbapenem-resist gene) Not Detected (Not Detect); Neisseria meningitidis Not Detected (Not Detect); Proteus species Detected (Not Detect); Pseudomonas aeruginosa Not Detected (Not Detect); Serratia marcescens Not Detected (Not Detect)
--- NOTE | 2021-05-17 12:15 | ST.IPDYTX ---
Visit Care Team Role Provider Type Gemini Nix MD Primary Care Provider Non-Staff Specialty: Internal Medicine Address: [address] [place] [address], [id number] Email: Juan Overton DO Emergency Provider Physician Referring Provider Specialty: Emergency Medicine Address: [address] [place] [address], [address] Email: [email or web address] Won Mcnulty MD Admit Provider Physician Attending Provider Specialty: Hospitalist Address: [address] [place] [address], [address] Fax: Email: [email or web address]ER Dysphagia Treatment SW[employer]ER Dysphagia Treatment Start: 05/16/21 12:00 Freq: Status: Active Protocol: Document 05/18/21 16:25 ERICK (Rec: 05/18/21 16:35 ERICK [id number]) Dysphagia Treatment Session Time Visit Start Time 12:40 Visit Stop Time 13:00 Total Visit Minutes 20 Setting Assessment Location Acute Care Visit Type Note Type Treatment Note Next Note Type Next Note Type Treatment Note Patient Information Identification Type Name,ID Card Subjective Observations Pt was sitting up in chair with lunch tray. He vaguely recognized SWATCH MAKER from yesterday' s visit. He was pleasant and more conversant throughout today's session as compared to yesterday, asking appropriate personal questions and sharing information about his life. He expressed enjoying his lunch and denied swallow difficulties. Treatment Liquids Trialed Thin Solids Trialed Mechanical Soft Administration Type Straw,Self-Feeding Oral Strategies Upright at 90 degrees Pharyngeal Strategies Sitting Upright (90 deg) Treatment Activities Assessed pt's tolerance of dysphagia mechanical texture and thin liquids. No overt s/ sx of aspiration were observed . Mildly slow mastication and oral prep phase was noted, but improved since yesterday. No oral residue was seen. Voice remained clear throughout. Assessment Patient Response to Treatment Good Rehab Potential Good Assessment of Improvement The pt is tolerating current diet. Recommend continuing [facility] soft texture to maintain mastication ease and efficiency. Pt was more alert and conversant today. Oriented to self and others, place and past life events. He was appropriate in conversation, following simple instructions and responding to questions and comments well. Speech production was occasionally effortful with stumbles over words. The pt independently pursued verbal expression and succeeded in expressing all ideas. This is likely a lasting effect from previous stroke. It slows but does not prevent the pt from expressing himself. Nsg reported no difficulty swallowing pills. No additional concerns for SWATCH MAKER services. Pt will be discharged from ST services at this time. Diet Recommendations Recommendations Continue Current Diet Liquids Order Thin Diet Order Mechanical Soft Medication Recommendations As Tolerated Aspiration Precautions Recommended Precautions Upright at 90 Degrees,Small Bites/Sips Treatment Plan Placement Recommendation after Discharge Home,Home Care Appropriate for Continued Therapy No
--- NOTE | 2021-05-17 13:56 | P.PN_ITS ---
Subjective Subjective Interval history: The patient denies any acute complaints. He reports good PO intake. He denies any recurrence of seizure-like activity. Exam Vital Signs (past 8 hours): - 05/17/21 07:51 05/17/21 08:00 05/17/21 09:00 Temperature 99.8 F H Pulse Rate 57 L Respiratory Rate 16 Blood Pressure 138/96 H Pulse Oximetry 99 100 100 05/17/21 09:17 05/17/21 12:19 05/17/21 12:27 Temperature 98.2 F Pulse Rate 57 L 76 Respiratory Rate 14 Blood Pressure 138/96 H 146/81 H Pulse Oximetry 99 98 Oxygen Delivery Method Room Air Oxygen Flow Rate 0 Narrative Exam Narrative: GEN:?appears chronically ill, cachectic HEENT:? moist mucous membranes NECK: trachea midline, no JVD LUNGS: clear to auscultation bilaterally no wheezes, rhonchi, rales CV: regular rate and rhythm, no murmurs ABD: soft, non-tender, non-distended, normal bowel sounds EXT: no edema, moving all extremities NEURO: alert and oriented to name only, following commands, no nuchal rigidity Objective Labs Result Diagrams: 05/17/21 04:56 05/17/21 04:56 Labs: Laboratory Results - last 24 hr 05/14/21 05/17/21 05/17/21 21:17 04:56 04:56 WBC 7.3 RBC 3.77 L Hgb 11.4 L Hct 33.7 L MCV 89.6 MCH 30.4 MCHC 33.9 RDW 14.2 Plt Count 211 Sodium 138 Potassium 3.7 Chloride 112 H Carbon Dioxide 23 BUN 21 H Creatinine 0.97 Estimated GFR > 60.0 BUN/Creatinine Ratio 21.6 Glucose 86 Calcium 8.7 A. baumannii (PCR) Not detected Mechelle albicans (PCR) Not detected C. glabrata (PCR) Not detected C. krusei (PCR) Not detected C. parapsilosis (PCR) Not detected C. tropicalis (PCR) Not detected Enterobacteriac sp PCR Detected H E. cloacae complex PCR Not detected Enterococcus sp PCR Not detected E. coli (PCR) Not detected H. influenzae (PCR) Not detected Klebsiella oxytoca PCR Not detected Klebsiella pneumoniae Not detected List. monocytogenes PCR Not detected N. meningitidis (PCR) Not detected Proteus species (PCR) Detected H Serratia marcescens PCR Not detected Staphylococcus sp PCR Not detected Staph aureus (PCR) Not detected mecA-Methicil Res Gene Not Reportable Streptococcus sp PCR Not detected Group A Strep (PCR) Not detected Strep agalactiae (PCR) Not detected Strep pneumoniae (PCR) Not detected P. aeruginosa (PCR) Not detected Jessica/B-Vanco Res Genes Not Reportable KPC-Carbap Res Gene PCR Not detected PFSH Medical History CVA, old, alterations of sensations History of small bowel obstruction Hypertension Iron deficiency anemia Seizure disorder Surgical History History of appendectomy History of bowel resection History of colonoscopy with polypectomy Family History Father Cancer Social History household members: spouse Smoking Status: Former smoker alcohol intake: never Assessment & Plan Assessment & Plan narrative: Mr. Milan is a 75M with PMH CVA, seizure disorder who presents with weakness found to have UTI. 1. Acute UTI -on admission WBC 13.8, procal >3, bandemia 15%, lactate 4.5 improved to 2.5 with treatment -UA 2+ LE, 30-100 WBC, many bacteremia -urine culture growing Citrobacter amalonaticus -continue IV ceftriaxone -cxray negative for pneumonia, no meningeal signs 2. Acute kidney injury, improving -secondary to hypovolemia from acute infection -continue IV fluids -continue IV antibiotics -renal US unremarkable -avoid nephrotoxins 3. Spasticity/tremulousness, improved -etiology not clear, do not appear similar to previous seizure episodes as he is completely oriented -possibly secondary to infection and metabolic response -ordered MRI brain and MRI c-spine which were negative for acute process -for now do not think he is indicated for EEG or LP -consider Parkinson-type etiology as well 4. History of CVA with left sided weakness -continue home medications once reconciled -MRI brain showed severe cerebral atrophy 5. Seizure disorder -continue keppra, and will uptitrate home dose -for now continue dilantin at higher doses, but patient is in process of being weaned off and if confirmed episodes are not seizures can likely continue plan to wean off as outpatient physicians is recommending 6. Hypertension -will start lisinopril for BP control 7. Difficulty eating, poor appetite with severe protein calorie malnutrition -consult telephone answerer -consult speech therapy 8. Vertebral fractures, unknown if acute/chronic -patient currently denies pain -ordered prn IV meds and lidocaine patch -ordered PT/OT eval CODE: Full Proxy: Fariba Milan, spouse I have utilized all available, immediate resources to obtain, update, or review the patient's current medications. Time Spent With Patient Critical Care time: I spent a total of [] minutes of critical care time on this patient's care today; this time is exclusive of procedural time. Quality VTE Deep Vein Thrombosis/Pulmonary Embolism Present on Admission: No MIPS - Admit I confirm the patient?s Advance Care Plan is present, Code status is documented, Surrogate decision maker is in patient?s record [If Yes, STOP here]: Yes
--- NOTE | 2021-05-17 19:28 | PC.NURSE ---
A&Ox1. Very confused but pleasant with care. 2 person assist with mami. Denies pain. Maceration of groin and pressure ulcer on coccyx. Applied allyven dressing and barrier cream. Got up to chair for lunch and most of the afternoon. Good appetite, able to feed self. Call light within reach, bed low.
[2021-05-17] MEDS: levETIRAcetam 250 MG TABLET 1000 MG PO (21:37)
[2021-05-17] MEDS: cefTRIAXone 2,000 MG in SODIUM CHLORIDE 0.9% 100 ML 200 ML IV (21:38)
[2021-05-18] VITALS (11 sets, daily range): BP systolic 138–170; BP diastolic 71–99; PULSE 65–75; RESP 14–16; TEMP 36.2–36.6; O2SAT 96–100
[2021-05-18] MEDS: levETIRAcetam 250 MG TABLET 1000 MG PO (09:01)
[2021-05-18] MEDS: lisinopriL 20 MG TABLET PO (09:01)
[2021-05-18] MEDS: HEPARIN 5,000 UNIT/ML VIAL 5000 UNIT SUBCUT (09:01)
[2021-05-18] MEDS: LIDOCAINE PATCH 1 EACH ADH..PATCH TOP (09:02)
[2021-05-18 09:26] LABS: BUN Creatinine Ratio 20.7 (6-22); Blood Urea Nitrogen 19 mg/dL (9-20); Calcium 9.1 mg/dL (8.4-10.2); Carbon Dioxide 24 mmol/L (22-32); Chloride 111 mmol/L (98-107); Estimated Glomerular Filt Rate > 60.0 mL/min (>60); Glucose 96 mg/dL (80-110); HEMOLYSIS 30 (0-50); Potassium 4.3 mmol/L (3.4-5.1); Sodium 142 mmol/L (137-145)
--- NOTE | 2021-05-18 11:18 | OT.IP.TRT ---
Current Diagnoses Urinary tract infection, site not specified (05/15/21) Occupational Therapy Treatment Note M2 OT-IP Current Condition Start: 05/16/21 14:49 Freq: Status: Active Protocol: Document 05/16/21 14:49 CGR (Rec: 05/16/21 15:08 CGR [id number]) Occupational Therapy Current Condition Current Condition Evaluation Date 05/16/21 Treatment Diagnosis fall with weakness, rigidity/ spasticity, acute UTI, FABRIZIO myoclonus Diagnosis Onset Date 05/15/21 M3 OT- IP Subjective and Pain Start: 05/16/21 14:49 Freq: Status: Active Protocol: Document 05/18/21 10:51 [facility] (Rec: 05/18/21 11:57 [facility] [id number]) OT- Subjective Occupational Therapy Visit Type Type Treatment Note Visit Start Time 10:51 Visit Stop Time 11:18 Total Visit Minutes 27 Occupational Therapy Visit Comments Patient Comments Pt wanting to get up. SMOCKER present for part of the session. Able to request a waffle cushion from nursing for the pt. Patient/Caregiver Goals To go home. OT Pain Assessment Pain When Pain Assessed At Rest Pain Present Pain Present Denied Pain M4 OT- IP ADL's Start: 05/16/21 14:49 Freq: Status: Active Protocol: Document 05/18/21 10:51 [facility] (Rec: 05/18/21 11:57 [facility] [id number]) OT ADL-Grooming Comments OT Grooming Comments not performed OT ADL-Oral Care Comments Oral Care Comments not performed OT ADL-Dressing General Eval Lower Body Dressing Ability Maximum Assistance Areas Needing Assistance Underpants/Brief,Socks OT ADL-Toileting General Evaluation Toileting Ability Total Assistance Areas Needing Assistance Perform Perineal Hygiene Comments OT Toileting Comments Pt needing total asisst for brief and hygiene needs at this time while pt able to stand with SMOCKER with FWW. OT ADL-Bathing Comments OT Bathing Comments Sponge bath more appropriate at this time. M5 OT- IP IADL's Start: 05/16/21 14:49 Freq: Status: Active Protocol: Document 05/16/21 14:49 CGR (Rec: 05/16/21 15:08 CGR [id number]) OT-Instrumental Activities of Daily Living Deficits IADL Deficits Identified Deficits Home Safety Awareness Awareness of Need for Assistance at Home Decreased Awareness Ability to Problem Solve Emergency Unable to Problem Solve Situations Medication Management Medication Management Caregiver Administers Money Management Money Management Caregiver Provides Assistance Meal Preparation Meal Preparation Caregiver Provides Assist Physician Internist Physician Internist Caregiver Provides Assist Driving Driving Comments Pt does not drive M6 OT- IP Functional Cognition Start: 05/16/21 14:49 Freq: Status: Active Protocol: Document 05/18/21 10:51 [facility] (Rec: 05/18/21 11:57 [facility] [id number]) Cognitive Factors Limiting Selfcare Function Cognitive Ability Level of Alertness Alert,Confusional State Patient Orientation Name,Place Attention Span Ability Unable to Focus,Unable to Sustain Attention Ability to Follow Commands Able to Follow One Step Commands with Increased Time, Able to Follow One Step Commands with Repetition Cognitive Comments Cognitive Assessment Comments Pt needing increased time to process and follow commands. Pt is cooperative and pleasant . M7 OT- IP Mobility and Balance Start: 05/16/21 14:49 Freq: Status: Active Protocol: Document 05/18/21 10:51 [facility] (Rec: 05/18/21 11:57 [facility] [id number]) OT-Transfer Assessment Sit to and From Stand Sit to and from Stand Maximum Assistance,1 Person Assistance Transfers Transfer Ability Maximum Assistance,1 Person Assistance Technique Transfer Destination Chair,Wheelchair Transfer Technique Stand Step Pivot Devices Transfer Assistive Devices Gait Belt,Front Wheeled Walker Comments Mobility Comments MAXA x 1 to stand to FWW and MODA x 1 to transfer with FWW, asisst to guide the FWW and for his balance. OT- Balance Assessment Sitting Balance and Reactions Static Sitting Balance Ability Good Dynamic Sitting Balance Ability Fair Standing Balance and Reactions Static Standing Balance Ability Poor Dynamic Standing Balance Ability Poor M8 OT- IP Objective Assessments Start: 05/16/21 14:49 Freq: Status: Active Protocol: Document 05/17/21 12:46 [facility] (Rec: 05/17/21 13:00 [facility] [id number]) OT-Muscle Tone Assessment Comments Muscle Tone Comments Increased time especially with his LE. M9 OT- IP Assessment and Plan Start: 05/16/21 14:49 Freq: Status: Active Protocol: Document 05/18/21 10:51 [facility] (Rec: 05/18/21 11:57 [facility] [id number]) OT Summary Assessment and Plan Potential Rehabilitation Potential Good Analytic Complexity at Evaluation High Summary OT Impairments Strength,Balance,Tone, Functional Cognition, Functional Mobility,Grooming, Dressing,Toileting,Bathing, Toilet Transfers,Shower Transfers,Activity Tolerance Progress Towards Goals Progressing Toward Goals Assessment Summary Pt improving with mobility needs but not at his baseline of SBA with FWW/4ww and still needing MAX A for ADL needs. Pt would highly benefit from skilled rehab prior to going home. Pt is pleasant and cooperative. Goals Grooming Goal Standby Assistance Dressing Goal Minimal Assistance Toileting Goal Minimal Assistance Bathing Goal Minimal Assistance Toilet Transfer Goal Standby Assistance Shower Transfer Goal Contact Guard Assistance Days to Meet Goals 20 Frequency of Treatment Frequency Of Treatment Once a Day Treatment Plan OT Treatment Plan ADL Training,Functional Cognition Training,Functional Mobility,Therapeutic Exercises ,Patient/Family Education, Discharge Planning Discharge Recommendations OT Discharge Recommendations SNF Rehab Transportation Needs at Discharge Wheelchair/Cabulance
--- NOTE | 2021-05-18 14:45 | PM.PN.1 ---
Subjective Subjective Interval history: Patient denies any acute complaints this morning. He reports good PO intake. His breakfast was nearly completely eaten this morning. He reports good urination, BM's, too. Denies any recurrence of seizure-like activity. No events reported overnight. Pending placement. Will complete IV ceftriaxone therapy for UTI today. Home Keppra and lisinopril doses have been increased. Exam Vital Signs (past 8 hours): - 05/18/21 07:50 05/18/21 09:00 05/18/21 09:01 Temperature 97.9 F Pulse Rate 72 75 Respiratory Rate 14 Blood Pressure 168/81 H 168/71 H Pulse Oximetry 96 100 100 05/18/21 11:51 05/18/21 12:00 05/18/21 12:20 Temperature 97.5 F L Pulse Rate 65 Respiratory Rate 14 Blood Pressure 138/75 Pulse Oximetry 100 100 100 Oxygen Delivery Method Room Air Oxygen Flow Rate 0 Narrative Exam Narrative: GEN:?appears chronically ill, cachectic HEENT:? moist mucous membranes NECK: trachea midline, no JVD LUNGS: clear to auscultation bilaterally no wheezes, rhonchi, rales CV: regular rate and rhythm, no murmurs ABD: soft, non-tender, non-distended, normal bowel sounds EXT: no edema, moving all extremities NEURO: alert and oriented to name only, following commands Objective Labs Result Diagrams: 05/17/21 04:56 05/18/21 08:50 Labs: Laboratory Results - last 24 hr 05/18/21 08:50 Sodium 142 Potassium 4.3 Chloride 111 H Carbon Dioxide 24 BUN 19 Creatinine 0.92 Estimated GFR > 60.0 BUN/Creatinine Ratio 20.7 Glucose 96 Calcium 9.1 PFSH Medical History CVA, old, alterations of sensations History of small bowel obstruction Hypertension Iron deficiency anemia Seizure disorder Surgical History History of appendectomy History of bowel resection History of colonoscopy with polypectomy Family History Father Cancer Social History household members: spouse Smoking Status: Former smoker alcohol intake: never Assessment & Plan Assessment & Plan narrative: Mr. Milan is a 75M with PMH CVA, seizure disorder who presents with weakness found to have UTI, growing Citrobacter amalonaticus. 1. Acute UTI, growing Citrobacter amalonaticus - Continue IV ceftriaxone for 3-5 days total of abx therapy 2. Acute kidney injury, likely pre-renal from acute UTI, resolved - Cr normalized, encourage PO intake 3. Spasticity/tremulousness, resolved - Likely due to underlying, reported seizure disorder- Home Keppra dose increased to 1000 mg bid 4. History of CVA with left sided weakness - MRI brain reveals cerebral atrophy, with evidence of multiple, old infarcts - Maintaining normotension with increase lisinopril dose 5. Seizure disorder - Continue home Keppra, and will uptitrate home dose 6. Hypertension - Lisinopril 40 mg daily for BP control 7. Difficulty eating, poor appetite with severe protein calorie malnutrition - Contributing greatly to patient's chronic comorbidities and declining functional status 8. Vertebral fractures, unknown if acute/chronic - Patient denies any active/chronic pain VTE prophylaxis: Heparin 5000 units bid Time Spent With Patient Critical Care time: I spent a total of [] minutes of critical care time on this patient's care today; this time is exclusive of procedural time. Quality VTE Deep Vein Thrombosis/Pulmonary Embolism Present on Admission: No
--- NOTE | 2021-05-18 15:11 | PT.IPTN ---
Current Diagnoses Urinary tract infection, site not specified (05/15/21) Physical Therapy Treatment Note M2 PT-IP Current Condition Start: 05/15/21 08:18 Freq: NEEDED Status: Active Protocol: Document 05/18/21 15:27 SP (Rec: 05/18/21 16:30 SP [id number]) Physical Therapy Current Condition Current Condition Evaluation Date 05/15/21 Treatment Diagnosis UTI, vertebral compression fx; rigidity; impaired mobility and gait Onset Date 05/14/21 M3 PT-IP Subjective Start: 05/15/21 08:18 Freq: NEEDED Status: Active Protocol: Document 05/18/21 15:27 SP (Rec: 05/18/21 16:30 SP [id number]) Subjective Physical Therapy Visit Type Type Treatment Note Visit Start Time 14:40 Visit Stop Time 15:11 Total Visit Minutes 31 Notes co treat w/ OT due to 2nd person assist for hand over hand education support for transfers. Split treatment: [id number], [id number]. Number of MANAGER ORANGE Visits 3 Physical Therapy Visit Comments Patient Comments Pt willing to work with therapy. Therapy Pain Assessment Pain Present Pain Present Denied Pain M4 PT-IP Mobility and Gait Start: 05/15/21 08:18 Freq: NEEDED Status: Active Protocol: Document 05/18/21 15:27 SP (Rec: 05/18/21 16:30 SP [id number]) PT-Transfer Assessment Sit to and From Stand Sit to and from Stand Maximum Assistance,1 Person Assistance,Use of Upper Extremities Equipment Transfer Assistive Device Gait Belt,Front Wheeled Walker Orthotic/Prosthetic Devices or Brace: No Transfers Transfer Destination Chair,Wheelchair Transfer Technique Stand Step Pivot Transfer Ability Level of Assist Maximum Assistance,1 Person Assistance Comments Mobility Comments Pt seated in chair am tx, working with OT when arrived. Pt scooted to EOChair with cues UE on chair arms/ bending knees/ hips, CGA. Sit>stand Max A x1, 2nd person assist for TRIBAL transition to FWW. Stand step pivot transfer using FWW, cued upright posture, chair<>transfer chair , 1 step cues and allow time to process for sequencing BLE/ FWW with support as needed repositioning and reaching back Mod A x1 with cues for knee/ hip flexion slow descent into transfer chair. Rest in transfer chair, same assist and sequencing back to chair, Max Ax1. Pt was reclined in chair with chair alarm donned and warm blankets provided. Pt had call light and all needs in reach before left. MANAGER ORANGE updated communication board and reported progress in mobility to nursing and care mgt team. MANAGER ORANGE/OT suggesting to nurse calling family for caregiver training to allow assessment mobility if safe to go home. Required split tx due to tiring and requesting CGT in afternoon with family members. When arrived, she stated unable to provide assist, son and DIL didn't know that son should have attended tx but does give pt the physical assist including stairs into home. stated they can do it, have been helping pt for long time but wanted to see therapy assist pt for comparison pre admission. MANAGER ORANGE provided CG- Min A elevated supine>sit, CGA scoot to EOB with cues sequencing, Max A x1 STS w/ ability to also provide assist hand over hand transition to FWW then SPT bed> chair, Max A x1 using FWW, pt requires time process self sequencing but able to do. Pt scooted back in chair self, had call light and all needs with chair alarm donned. observation and states he is little different now. MANAGER ORANGE spent time discussed with , pt is only doing transfer no gait tolerated due to decreased strength and activity tolerance, needs assist for dressing/ showers and pt is not safe to do stairs at this time and not recommending managing stairs. states is open to her going to SNF to get stronger but if can't states her son has always been able to assist him and confident he can help pt up 1 step to deck and 3 stairs into front door without rails to enter main level of home, doesn't need to go upstairs. verbalized understanding MANAGER ORANGE recommendations and requested caremgt come speak with her to solidify SNF vs HHPT and understanding HHPT set up to come to house if not going to SNF. Gait Assessment Comments Gait Comments Stand step pivot Max A only tolerated at this time. See mobility details. Stair Climbing Assessment Comments Stair Climbing Comments unable at this time. PT-Balance Assessment Sitting Balance and Reactions Static Sitting Balance Ability Fair Dynamic Sitting Balance Ability Fair Standing Balance and Reactions Static Standing Balance Ability Poor Dynamic Standing Balance Ability Poor Device Used FWW M5 PT-IP Objective Assessments Start: 05/15/21 08:18 Freq: NEEDED Status: Active Protocol: Document 05/15/21 10:39 AW (Rec: 05/15/21 12:12 AW [id number]) Orientation Orientation/Cognition Level of Alertness Confusional State Orientation Name Gross Range of Motion Lower Extremity ROM Assessment Bilaterally Impaired Impairments B knees affected by tone. PROM lacking extension and unable to flex knees past ~60 degrees . Strength Comments Strength Comments Unable to formally assess due to tone and cognition. Muscle Tone Muscle Tone WNL No Comments Muscle Tone Comments Rigidity noted in BLE with pt unable to flex kneed actively or passively past ~60 degrees. Modified Baljeet Scale 1+ bilaterally. UE not assessed. M6 PT-IP Treatment Start: 05/15/21 08:18 Freq: NEEDED Status: Active Protocol: Document 05/18/21 15:27 SP (Rec: 05/18/21 16:30 SP [id number]) Physical Therapy Treatment Exercises Exercises Seated Knee Flexion/Extension Education Education Provided Precautions,Safety M7 PT-IP Assessment and Plan Start: 05/15/21 08:18 Freq: NEEDED Status: Active Protocol: Document 05/18/21 15:27 SP (Rec: 05/18/21 16:30 SP [id number]) PT Summary Assessment and Plan Potential Rehabilitation Potential Fair Status of Condition at Evaluation Evolving Summary Impairments ROM,Strength,Balance,Cognition ,Bed Mobility,Transfers,Gait Assessment Summary Pt continues to require Max A x1 for mobility and transfers using FWW and max 1 step cues with time to process all tasks , 2nd person assist for toileting/ pericare/shower and dressing needs. He can follow commands but does so slowly. Improved knee/ hip flexion and stable BUE self support able during transfer this day. He remains unable to stand or ambulate on his own and suggesting SNF vs 23/10 family available and HHPT to improve strength, balance, and functional independence. welcoming to SNF if can but son and DIL can help him and always have on stairs and all needs 23/10. Goals Bed Mobility Goal Standby Assistance Transfer Goal Standby Assistance,Front Wheeled Walker Gait Goal Standby Assistance,Front Wheel Walker Gait Distance 100 Other Goals - up/down 2 steps without rail CGA Days to Meet Goals 10 Frequency of Treatment Frequency Of Treatment Once a Day Treatment Plan Physical Therapy Treatment Plan Bed Mobility Training,Transfer Training,Gait Training, Therapeutic Exercise,Balance Retraining,Discharge Planning, Neuromuscular Re-ed, Coordination Retraining Other Recommendations and Next Treatment transfers; re-assess tone ( Focus including UE); sit to stand, ROM BLE, gait if able to progress. Assess stair mgt if safe. Precautions Other Precautions falls; seizures Recommendations To Nursing Amount of Assist Needed 2 Person Assist Discharge Recommendations PT Discharge Recommendations SNF Rehab Transportation Needs at Discharge Private Vehicle,Wheelchair/ Cabulance
--- NOTE | 2021-05-18 16:19 | P.DS_ITS ---
History of Present Illness History of Present Illness Chief complaint: sob/ unable to walk Narrative: Mr. Milan is a 75M with PMH CVA with left sided weakness, seizure disorder, HTN, anemia, cognitive impiarment who presents with recent fall and progressive weakness. Per his who provides history he sometimes has difficulty in expressing symptoms he is having, he often does not make family aware of changes in symptoms. He had been seemingly fine until Sunday he was noted to be less alert than usual, then had a collapse and fall forward. He has been having back pain since then and has had trouble breathing prior to coming in to the hospital. He has had previous issues with dilantin toxicity and has been in the process of titrating off this medication. Per his he has not had other complaints of coughing, nausea, vomiting, diarrhea, dysuria, fevers/chills. He presented to the ED and was noted to be difficult to place in vehicle by family and remove from vehicle by ED staff due to generalized weakness and apparent rigidity or spasticity In the ED workup was done, vitals were notable for tachycardia. He was noted to have multiple episodes witnessed by staff where he would become tense and rigid. There was a question of possible seizures, however, patient had not altered consciousness and his appearance was consistent with overall spasticity and not generalized tonic clonic movements. The episodes happened multiple times in the ED and lasted less than a minute and self resolved. Each time he was noted to be alert, following commands, and able to move all extremities. He denied pain during this period, and could provide no significant description of his symptoms. His was at bedside who noted his previous seizures included, drooling, staring blankly, and generalized tonic clonic movements. She has never witnessed episodes like those in the ED. Labs were notable for WBC 13.8, 15% bands. Na 147, BUN 61, creatinine 1.71. Lactate was 4.5 improved to 2.5 with IV fluids. Calcium 10.1. Procalcitonin 3.43. Phenytoin level undetectable. UA showed WBC, leuk esterase, and bacteria. Chest xray showed no acute process. CT head showed no acute process. Lumbar xray showed multiple verterbral compression fractures of unknown chronicity. Pelvic xray showed no acute process. He was ordered IV fluids and antibiotics and for keppra. Neurology was consulted at [facility] and did not think this was a seizure episode and did not think patient needed transfer. He was admitted for further treatment. Discharge Providers Provider Date of admission: 05/15/21 00:26 Discharge Date: 05/18/21 Primary care physician: Gemini Nix MD Consults: 05/15/21 01:17 Consult to Dietitian, Adult Routine Comment: Reason For Exam: poor appetite Consult to Speech Therapy Evaluate & Treat Comment: difficulty eating Physician Instructions: Evaluate and treat 05/15/21 01:25 Consult to Occupational Therapy Evaluate & Treat Comment: Physician Instructions: Evaluate and treat Consult to Physical Therapy Evaluate & Treat Comment: Physician Instructions: Evaluate and Treat 05/15/21 16:25 Consult to Dietitian, Adult Routine Comment: Reason For Exam: very thin Discharge provider: Paula Ch MD Summary Hospital Course Discharge Diagnosis: Mr. Milan is a 75M with PMH CVA, seizure disorder who presents with weakness found to have UTI, growing Citrobacter amalonaticus. 1. Acute UTI, growing Citrobacter amalonaticus - Continue IV ceftriaxone for 3-5 days total of abx therapy 2. Acute kidney injury, likely pre-renal from acute UTI, resolved - Cr normalized, encourage PO intake 3. Spasticity/tremulousness, resolved - Likely due to underlying, reported seizure disorder- Home Keppra dose increased to 1000 mg bid 4. History of CVA with left sided weakness - MRI brain reveals cerebral atrophy, with evidence of multiple, old infarcts - Maintaining normotension with increase lisinopril dose 5. Seizure disorder - Continue home Keppra, and will uptitrate home dose 6. Hypertension - Lisinopril 40 mg daily for BP control 7. Difficulty eating, poor appetite with severe protein calorie malnutrition - Contributing greatly to patient's chronic comorbidities and declining functional status 8. Vertebral fractures, unknown if acute/chronic - Patient denies any active/chronic pain Exam Vital Signs (past 8 hours): - 05/18/21 09:00 05/18/21 09:01 05/18/21 11:51 Temperature 97.9 F Pulse Rate 72 75 Respiratory Rate 14 Blood Pressure 168/81 H 168/71 H Pulse Oximetry 100 100 100 05/18/21 12:00 05/18/21 12:20 05/18/21 15:58 Temperature 97.5 F L Pulse Rate 65 Respiratory Rate 14 Blood Pressure 138/75 Pulse Oximetry 100 100 99 Oxygen Delivery Method Room Air Oxygen Flow Rate 0 Objective Labs Result Diagrams: 05/17/21 04:56 05/18/21 08:50 Labs: Laboratory Results - last 24 hr 05/18/21 08:50 Sodium 142 Potassium 4.3 Chloride 111 H Carbon Dioxide 24 BUN 19 Creatinine 0.92 Estimated GFR > 60.0 BUN/Creatinine Ratio 20.7 Glucose 96 Calcium 9.1 PFSH Medical History CVA, old, alterations of sensations History of small bowel obstruction Hypertension Iron deficiency anemia Seizure disorder Surgical History History of appendectomy History of bowel resection History of colonoscopy with polypectomy Family History Father Cancer Social History household members: spouse Smoking Status: Former smoker alcohol intake: never Discharge Assessment & Plan Assessment and Plan Assessment: Mr. Milan is a 75M with H CVA, seizure disorder who presents with weakness found to have UTI, growing Citrobacter amalonaticus. 1. Acute UTI, growing Citrobacter amalonaticus - Continue IV ceftriaxone for 3-5 days total of abx therapy 2. Acute kidney injury, likely pre-renal from acute UTI, resolved - Cr normalized, encourage PO intake 3. Spasticity/tremulousness, resolved - Likely due to underlying, reported seizure disorder- Home Keppra dose increa sed to 1000 mg bid 4. History of CVA with left sided weakness - MRI brain reveals cerebral atrophy, with evidence of multiple, old infarcts - Maintaining normotension with increase lisinopril dose 5. Seizure disorder - Continue home Keppra, and will uptitrate home dose 6. Hypertension - Lisinopril 40 mg daily for BP control 7. Difficulty eating, poor appetite with severe protein calorie malnutrition - Contributing greatly to patient's chronic comorbidities and declining functional status 8. Vertebral fractures, unknown if acute/chronic - Patient denies any active/chronic pain Discharge Plan Discharge Plan Patient Disposition: Home Discharge orders & Medications Prescriptions: Continued loratadine 10 MG tablet 10 mg PO DAILY PRN (Reason: Allergy Symptoms) 0RF mirtazapine 30 MG tablet 30 mg PO BEDTIME 0RF lisinopril 20 mg tablet 20 mg PO DAILY 0RF Label Comments: Hold for SBP < 110 or HR < 60 fluoxetine 10 mg capsule 30 mg PO DAILY 0RF felodipine 10 mg tablet extended release 24 hr 10 mg PO DAILY 0RF Label Comments: Hold for SBP < 110 or HR < 60 ferrous sulfate 324 mg (65 mg iron) tablet,delayed release (DR/EC) 1 tab PO DAILY 0RF Disabled Parking Permit 1 ea miscellaneous DIRECTED 0RF omeprazole 20 mg capsule,delayed release(DR/EC) 20 mg PO DAILY 0RF Changed levetiracetam 500 mg tablet 1,000 mg PO BID Qty: 0 0RF Follow up/Referrals: Gemini Nix MD [Primary Care Provider] - Visit Report/Discharge Packet Instructions: Urinary Tract Infection, Acute Kidney Injury Discharge Data Primary Care Provider: Gemini Nix Quality VTE Deep Vein Thrombosis/Pulmonary Embolism Present on Admission: No
--- NOTE | 2021-05-23 12:27 | CM.DPNOTE ---
Late entry: Aj Abel, bailee JOYA. Faxed face to face, dc summary, pt/ot notes and face sheet. Called Lynn, and she said she would call the at [phone]. Received fax conf. Vanessa Amaya CM Assist.
== END 2021-05-18 16:45 | disposition home or self-care (01) | DRG 689 ==
LOC: ED 05-15 00:18 → AC 05-15 00:29
PROVIDERS: Internal Medicine; Admitting Provider Internal Medicine; Emergency Provider Emergency Medicine; PCP Internal Medicine; Referring Provider Emergency Medicine; Visit Provider Internal Medicine
DX: N39.0 Urinary tract infection, site not specified (principal); E43 Unspecified severe protein-calorie malnutrition; N17.9 Acute kidney failure, unspecified; S32.019A Unspecified fracture of first lumbar vertebra, initial encounter for closed fracture; S32.029A Unspecified fracture of second lumbar vertebra, initial encounter for closed fracture; S32.039A Unspecified fracture of third lumbar vertebra, initial encounter for closed fracture; I69.954 Hemiplegia and hemiparesis following unspecified cerebrovascular disease affecting left non-dominant side; S32.049A Unspecified fracture of fourth lumbar vertebra, initial encounter for closed fracture; S32.059A Unspecified fracture of fifth lumbar vertebra, initial encounter for closed fracture; S22.089A Unspecified fracture of T11-T12 vertebra, initial encounter for closed fracture; E87.0 Hyperosmolality and hypernatremia; Z68.1 Body mass index [BMI] 19.9 or less, adult; G40.909 Epilepsy, unspecified, not intractable, without status epilepticus; R25.1 Tremor, unspecified; W18.30XA Fall on same level, unspecified, initial encounter; I10 Essential (primary) hypertension; D50.9 Iron deficiency anemia, unspecified; Z87.891 Personal history of nicotine dependence; Z20.822 Contact with and (suspected) exposure to COVID-19
CPT/HCPCS: 36415; 70450; 70551; 71045; 72100; 72141; 72170; 76770; 80048; 80053; 80185; 81001; 82550; 82553; 82570; 83605; 83690; 83735; 84100; 84145; 84300; 84443; 84484; 85007; 85025; 85027; 85610; 85730; 87040; 87077; 87086; 87150; 87186; 87205; 87635; 92526; 92610; 93005; 93010; 94760; 96365; 96375; 97110; 97163; 97167; 97530; 97535; 99285; C9803; J0696; J1644; J1953; J2270

== ENCOUNTER 2022-03-31 00:36 | Emergency (ER) | payer MEDICARE, OTHER, SELFPAY ==
[2021-05-15 01:14] VITALS: BMI 18.2
[2022-03-31 00:48] VITALS: BP 165/88; PULSE 74; RESP 20; TEMP 36.5; O2SAT 95; BMI 19.0
--- NOTE | 2022-03-31 02:30 | ED_ITS ---
HPI - Fall General Chief Complaint: Fall Stated Complaint: HEAD WOUND RT SIDE MAY NEED STITCHES Time Seen by Provider: 03/31/22 02:18 Source: patient and family Mode of arrival: Wheelchair History of Present Illness HPI Narrative: Patient is a 76-year-old male who at baseline uses a walker. Not on anticoagulation. Had an unwitnessed fall however family member state that most likely what happened is that he tried to walk to the bathroom without his walker. He fell and hit his head. There was no loss of consciousness. Patient reports no discomfort. He did start bleeding from his head which is what brought them to the emergency department. Related Data Home Medications Medication Instructions Recorded Confirmed Disabled Parking Permit 1 ea miscellaneous DIRECTED 12/25/17 05/15/21 felodipine 10 mg tablet,extended 10 mg PO DAILY 12/25/17 05/15/21 release 24 hr ferrous sulfate 324 mg (65 mg 1 tab PO DAILY 12/25/17 05/15/21 iron) tablet,delayed release fluoxetine 10 mg capsule 30 mg PO DAILY 12/25/17 05/15/21 lisinopril 20 mg tablet 20 mg PO DAILY 12/25/17 05/15/21 loratadine 10 mg tablet 10 mg PO DAILY PRN Allergy Symptoms 12/25/17 05/15/21 mirtazapine 30 mg tablet 30 mg PO BEDTIME 12/25/17 05/15/21 omeprazole 20 mg capsule,delayed 20 mg PO DAILY 05/15/21 05/15/21 release Previous Rx's Medication Instructions Recorded levetiracetam 500 mg tablet 1,000 mg PO BID #0 tabs 05/18/21 Allergies Allergy/AdvReac Type Severity Reaction Status Date / Time vancomycin [VANCOMYCIN] Allergy Unknown VANCO Verified 02/04/19 13:30 ALLERGY ON SNF FACE SHEET Review of Systems Constitutional Constitutional: Reports system reviewed and no additional complaints, except as documented Musculoskeletal Musculoskeletal: Reports system reviewed and no additional complaints, except as documented Integumentary/Breasts Skin/Breast: Reports system reviewed and no additional complaints, except as documented Neurologic Neurologic: Reports system reviewed and no additional complaints, except as documented Hematologic/Lymphatic On Anticoagulants: No Patient History Medical History CVA, old, alterations of sensations History of small bowel obstruction Hypertension Iron deficiency anemia Seizure disorder Surgical History History of appendectomy History of bowel resection History of colonoscopy with polypectomy Family History Father Cancer Social History household members: spouse Smoking Status: Former smoker alcohol intake: never Smoking Status: Former smoker alcohol intake frequency: 0-2 drinks per day Substance Use Type: does not use Exam Initial Vital Signs Initial Vital Signs: Vital Signs Temperature 97.7 F 03/31/22 00:48 Pulse Rate 74 03/31/22 00:48 Respiratory Rate 20 03/31/22 00:48 Blood Pressure 165/88 H 03/31/22 00:48 Pulse Oximetry 95 03/31/22 00:48 Oxygen Delivery Method 03/31/22 00:48 HENMT Head: laceration (Right posterior/occipital region) Back/Spine/Pelvis Cervical Spine: No cervical spinal tenderness Skin Other: Do cm laceration right posterior scalp. Neuro General: patient alert, patient awake and patient oriented x3 Extrem Other: No gross deformities Procedures Laceration Repair Laceration 1: Site: scalp Side (If applicable): right Size (cm): 2 Description: linear Depth: simple, single layer Local Anesthetic: lidocaine 1% and with epi Amount of anesthesia used (mL): 2 Skin layer closed with: reyna Scores GCS [place] coma scale eye opening: Spontaneous [place] coma scale verbal response: Orientated Tanya coma scale motor response: Obey commands Tanya coma scale total score: 15 Nexus Score for C-Spine Focal Neurologic deficit present: No Midline spinal tenderness present: No Altered level of conciousness present: No Intoxication present: No Distracting Injury Present: No Nexus Criteria for C-spine: 0 Course Vital Signs Vital signs: Vital Signs - 8 hr 03/31/22 00:48 Temperature 97.7 F Pulse Rate 74 Respiratory Rate 20 Blood Pressure 165/88 H Pulse Oximetry 95 Oxygen Delivery Method Room Air MDM - Fall MDM Narrative Medical decision making narrative: Not on anticoagulation. Laceration was closed with 2 reyna and family was given care instructions and return precautions and follow-up instructions. Patient reports no other injuries from the event. Cervical spine is cleared by nexus criteria. Will hold on any radiologic studies for now. He was given return precautions. He expressed understanding and agreement. Discharge Plan Departure Patient Disposition: Home Clinical Impression: Laceration of scalp Instructions: DI for Laceration Repair -- [place] Activity Restrictions/Additional Instructions: He can bathe like normal and you shampoo like normal. The reyna do need to be removed in approximately 10 days. Either his primary doctor or the walk-in clinic can do this. Return to the emergency department for any new or worsening symptoms. Prescriptions: No Action loratadine 10 MG tablet 10 mg PO DAILY PRN (Reason: Allergy Symptoms) mirtazapine 30 MG tablet 30 mg PO BEDTIME lisinopril 20 mg tablet 20 mg PO DAILY Label Comments: Hold for SBP < 110 or HR < 60 fluoxetine 10 mg capsule 30 mg PO DAILY felodipine 10 mg tablet extended release 24 hr 10 mg PO DAILY Label Comments: Hold for SBP < 110 or HR < 60 ferrous sulfate 324 mg (65 mg iron) tablet,delayed release (DR/EC) 1 tab PO DAILY Disabled Parking Permit 1 ea miscellaneous DIRECTED omeprazole 20 mg capsule,delayed release(DR/EC) 20 mg PO DAILY levetiracetam 500 mg tablet 1,000 mg PO BID Qty: 0 0RF Referrals: Gemini Nix MD [Primary Care Provider] - Stand Alone Forms: Patient Portal/API
== END 2022-03-31 02:46 | disposition home or self-care (01) ==
PROVIDERS: Emergency Provider Emergency Medicine; PCP Internal Medicine
DX: S01.01XA Laceration without foreign body of scalp, initial encounter (principal); W19.XXXA Unspecified fall, initial encounter
CPT/HCPCS: 12001; 99281; 99283

== ENCOUNTER 2022-08-13 15:59 | Inpatient (IN) | payer MEDICARE, OTHER, SELFPAY ==
[2021-05-15 01:14] VITALS: BMI 18.2
[2022-08-13] VITALS (17 sets, daily range): BP systolic 156–234; BP diastolic 77–112; PULSE 63–79; RESP 9–20; TEMP 36.6–37.3; O2SAT 92–98; BMI 24.7
--- NOTE | 2022-08-13 15:04 | DI.MRI.S_ITS ---
PROCEDURE: MR STROKE Pre- and post-contrast brain MRI, non-contrast brain MR angiogram, pre- and postcontrast neck MR angiogram INDICATIONS: enceph, Hx CVA TECHNIQUE: Brain: Noncontrast axial T1 spin echo, axial T2 fast spin echo, sagittal and axial FLAIR, coronal T2 fast spin echo, axial gradient echo, axial diffusion and ADC through the brain. After the administration of contrast, axial 3D VIBE of the cranial vasculature and brain. Brain MRA: Non-contrast 3-D time of flight MR angiogram, with multiple ujpcryi-lprfiseis-nmqowlbycn (MIP) reformats performed. Neck MRA: Axial and sagittal TruFISP through the neck. Coronal dynamic MR angiogram during administration of contrast in the arterial and venous phases, with 3-dimenstional qqokmbs-runjewjuh-aempdzteuk (MIP) reformats constructed from subtraction images. COMPARISON: [facility], MR, MR STROKE, 09/02/2018, 14:12. FINDINGS: Image quality: Excellent. BRAIN: CSF spaces: Ventricles are normal in size and shape. Basal cisterns are patent. No extra-axial fluid collections. Brain: No intracranial bleeds or mass effects. Mireles-white matter interface is normal. Diffusion weighted images show no acute ischemic insults. Moderate diffuse cerebral volume loss. Moderate degree of patchy high FLAIR signal within the periventricular and subcortical white matter. Brainstem appears normal. Small chronic left posteromedial cerebellar infarct, as before. Normal intravascular flow voids are present. No abnormal intracranial enhancement. Skull and face: Calvarial marrow signal is normal. Orbits appear normal. Sinuses: Mild mucosal thickening within the bilateral maxillary and ethmoid sinuses. BRAIN MR ANGIOGRAM: Anterior circulation: Intracranial internal carotid arteries are normal in size and enhancement. The flow within the paired anterior cerebral arteries is normal and symmetric. The flow within the middle cerebral arteries is normal and symmetric. The anterior communicating artery is seen. No stenoses, occlusions, or aneurysms. Posterior circulation: The visualized portions of the vertebral arteries demonstrate normal caliber, and join to form a normal appearing basilar artery. The flow within the posterior cerebral arteries is normal and symmetric. No stenoses, occlusions, or aneurysms. NECK MR ANGIOGRAM: [employer] T2 imaging through the neck is grossly unremarkable. Thoracic aortic arch is patent. There is a common origin of the innominate and left common carotid arteries which is patent. The innominate and right subclavian arteries are patent. Right vertebral artery is patent. Right common carotid artery is patent. Right internal and external carotid arteries are patent. Left common carotid artery is patent. Roughly 50% stenosis within the proximal left internal carotid artery. Left external carotid artery is patent. Left subclavian artery is patent. Left vertebral artery demonstrates a moderate origin stenosis, and is otherwise patent. IMPRESSION: BRAIN MRI: 1. Volume loss and small vessel ischemic disease. 2. No acute process. No recent infarct. 3. Small chronic left cerebellar infarct. BRAIN MR ANGIOGRAM: Negative cerebral MR angiography. NECK MR ANGIOGRAM: 1. Left internal carotid artery stenosis as above. No significant right internal carotid artery stenosis. 2. Left vertebral artery origin stenosis. No significant right vertebral artery stenosis. Dictated by: Lashon Pimentel M.D. on 08/14/2022 at 15:11 Transcribed by: SHAMEKA on 08/14/2022 at 15:16 Approved by: Lashon Pimentel M.D. on 08/14/2022 at 15:19
--- NOTE | 2022-08-13 16:28 | DI.CT.S_ITS ---
PROCEDURE: CT HEAD/BRAIN WO CON INDICATIONS: altered mental status TECHNIQUE: Noncontrast 4.5 mm thick angled axial sections acquired from the foramen magnum to the vertex, with coronal and sagittal reformats. For radiation dose reduction, the following was used: automated exposure control, adjustment of mA and/or kV according to patient size. COMPARISON: [facility], CT, CT HEAD/BRAIN WO CON, 12/07/2020, 13:21. [facility], CT, CT HEAD/BRAIN WO CON, 11/11/2020, 15:01. [facility], CT, HEAD WITHOUT CONTRAST, 03/30/2013, 4:52. [facility], CR, XR CHEST 1V, 08/13/2022, 16:26. [facility], CT, CT HEAD/BRAIN WO CON, 05/14/2021, 20:19. FINDINGS: Image quality: Excellent. CSF spaces: Basal cisterns are patent. No extra-axial fluid collections. The ventricles are symmetric in size and shape. Brain: No intracranial bleeds or masses. There is cerebral volume loss for age, with resultant ventricular and sulcal prominence. There are periventricular and deep white matter chronic small vessel ischemic changes. There is intracranial internal carotid artery atherosclerosis. Skull and face: Calvarium and visualized facial bones appear intact, without suspicious lesions. Sinuses: Visualized sinuses and mastoids are clear. IMPRESSION: No acute intracranial process is seen. Note is made of age-appropriate brain parenchymal volume loss and chronic small vessel ischemic changes. If there is strong clinical suspicion for an acute stroke, please consider a brain MRI for further evaluation, as it is more sensitive (assuming that there is no contraindication to MRI). Dictated by: Joni Saez M.D. on 08/13/2022 at 16:01 Approved by: Joni Saez M.D. on 08/13/2022 at 16:02
--- NOTE | 2022-08-13 16:28 | DI.RAD.S_ITS ---
PROCEDURE: XR CHEST 1V INDICATIONS: eval for PNA TECHNIQUE: One view of the chest was acquired. COMPARISON: [facility], CR, XR CHEST 1V, 05/14/2021, 19:53. FINDINGS: Surgical changes and devices: None. Lungs and pleura: An incomplete inspiratory result is noted, causing a crowded appearance to the lung markings. No focal infiltrates are seen. No pneumothorax or significant pleural effusions are seen. Mediastinum: The cardiac contours are within normal limits. The aorta demonstrates calcification and tortuosity. Bones and chest wall: No suspicious bony lesions. Age-appropriate bony degenerative changes are seen. Overlying soft tissues appear unremarkable. IMPRESSION: Clear lungs, without infiltrates. Dictated by: Joni Saez M.D. on 08/13/2022 at 15:58 Approved by: Joni Saez M.D. on 08/13/2022 at 15:59
[2022-08-13] MEDS: SODIUM CHLORIDE 0.9% 1,000 ML 1000 ML IV (16:30)
[2022-08-13 16:41] LABS: Add Manual Diff / Slide Review NO; Basophils Absolute Auto 0 /uL (0-100); Basophils Percent Auto 0.7 % (0-2); Eosinophils Absolute Auto 0 /uL (0-450); Eosinophils Percent Auto 0.7 % (2-4); Hematocrit 41.9 % (41-53); Hemoglobin 14.2 g/dL (13.5-17.5); Lymphocytes Absolute Auto 1900 /uL (1100-4500); Lymphocytes Percent Auto 45.4 % (25-40); Mean Corpuscular HGB Conc 33.9 % (30-36); Mean Corpuscular Hemoglobin 30.1 PG (26-34); Mean Corpuscular Volume 88.7 fL (80-100); Monocytes Absolute Auto 600 /uL (0-900); Monocytes Percent Auto 13.5 % (3-14); Neutrophils Absolute Auto 1700 /uL (1500-7000); Neutrophils Percent Auto 39.7 % (50-75); Platelet Count 143 X10^3/uL (150-400); Red Blood Cell Count 4.73 X10^6/uL (4.5-5.9); Red Cell Distribution Width 14.1 % (11.6-14.8); White Blood Cell Count 4.2 X10^3/uL (4.5-11.0)
[2022-08-13 16:44] LABS: Lactate (Lactic Acid) 1.1 mmol/L (0.7-2.1)
[2022-08-13 16:45] LABS: Alanine Aminotransferase 29 IU/L (<50); Albumin 4.1 g/dL (3.5-5.0); Albumin Globulin Ratio 1.1 (1.0-2.8); Alkaline Phosphatase 101 U/L (38-126); Aspartate Aminotransferase 45 IU/L (17-59); BUN Creatinine Ratio 22.3 (6-22); Bilirubin Total 0.4 mg/dL (0.2-1.3); Blood Urea Nitrogen 23 mg/dL (9-20); Calcium 8.9 mg/dL (8.4-10.2); Carbon Dioxide 26 mmol/L (22-32); Chloride 103 mmol/L (98-107); Creatine Kinase 286 U/L (55-170); Estimated Glomerular Filt Rate > 60 mL/min (>60); Globulin 3.7 g/dL (1.7-4.1); Glucose 84 mg/dL (80-110); Lipase 28 U/L (23-300); Sodium 138 mmol/L (137-145); Total Protein 7.8 g/dL (6.3-8.2)
--- NOTE | 2022-08-13 16:50 | ED.GENADULT ---
HPI - General Adult General Chief complaint: Weakness Stated complaint: Coughing, lethargic, not eating/drinking Time Seen by Provider: 08/13/22 16:27 Source: patient and family Mode of arrival: Wheelchair Limitations: no limitations History of Present Illness HPI narrative: Patient is a 77-year-old male. History of CVAs. Also has a history of seizures. Is on Keppra now. No longer on Dilantin. Is here with his for evaluation of progressively worsening 3-4 days of confusion and weakness. Has had a decreased oral intake of both fluid and food. He has been taking his medications. No falls. Normally he ambulates with a walker but has been unable to do that recently. Here in the ER the patient his confused. He is no specific complaints. Does not know why he is here in the ER. Related Data Home Medications Medication Instructions Recorded Confirmed Disabled Parking Permit 1 ea miscellaneous DIRECTED 12/25/17 05/15/21 felodipine 10 mg tablet,extended 10 mg PO DAILY 12/25/17 05/15/21 release 24 hr ferrous sulfate 324 mg (65 mg 1 tab PO DAILY 12/25/17 05/15/21 iron) tablet,delayed release fluoxetine 10 mg capsule 30 mg PO DAILY 12/25/17 05/15/21 lisinopril 20 mg tablet 20 mg PO DAILY 12/25/17 05/15/21 loratadine 10 mg tablet 10 mg PO DAILY PRN Allergy Symptoms 12/25/17 05/15/21 mirtazapine 30 mg tablet 30 mg PO BEDTIME 12/25/17 05/15/21 omeprazole 20 mg capsule,delayed 20 mg PO DAILY 05/15/21 05/15/21 release Previous Rx's Medication Instructions Recorded levetiracetam 500 mg tablet 1,000 mg PO BID #0 tabs 05/18/21 Allergies Allergy/AdvReac Type Severity Reaction Status Date / Time vancomycin [VANCOMYCIN] Allergy Unknown VANCO Verified 08/13/22 16:21 ALLERGY ON SNF FACE SHEET Review of Systems Constitutional Constitutional: Reports system reviewed and no additional complaints, except as documented Cardiovascular Cardiovascular: Reports system reviewed and no additional complaints, except as documented Respiratory Respiratory: Reports system reviewed and no additional complaints, except as documented Gastrointestinal Gastrointestinal: Reports system reviewed and no additional complaints, except as documented Genitourinary Genitourinary: Reports system reviewed and no additional complaints, except as documented Integumentary/Breasts Skin/Breast: Reports system reviewed and no additional complaints, except as documented Neurologic Neurologic: Reports system reviewed and no additional complaints, except as documented Hematologic/Lymphatic On Anticoagulants: No Patient History Medical History (Updated 08/13/22 @ 18:20 by Juan Overton DO) CVA, old, alterations of sensations History of small bowel obstruction Hypertension Iron deficiency anemia Seizure disorder Surgical History History of appendectomy History of bowel resection History of colonoscopy with polypectomy Family History Father Cancer Social History household members: spouse Smoking Status: Former smoker alcohol intake: never Smoking Status: Former smoker alcohol intake frequency: 0-2 drinks per day Substance Use Type: does not use Exam Initial Vital Signs Initial Vital Signs: Vital Signs Pulse Rate 71 08/13/22 16:11 Respiratory Rate 14 08/13/22 16:11 Pulse Oximetry 97 08/13/22 16:11 Const General: cooperative, comfortable and No ill appearing HENMT Head: normal to inspection and normocephalic Resp Effort & Inspection: normal respiratory effort Auscultation: clear to auscultation bilaterally Cardio Rate: regular rate Rhythm: regular rhythm GI Inspection: normal to inspection Palpation: soft, No firm and No tender Skin General: no rashes or lesions noted Neuro Other: Patient is confused. He knows he is in a hospital but thinks that he is at a another local hospital. Does not know what year it is. Does recognize his . Does follow commands. Has 3/5 strength bilateral lower extremities. 4/5 strength bilateral upper extremities. Extrem General: normal to inspection and capillary refill normal Scores GCS Tanya coma scale eye opening: Spontaneous Tanya coma scale verbal response: Confused Placida coma scale motor response: Obey commands Tanya coma scale total score: 14 Course Orders Ordered: ED Orders 08/13/22 16:22 Complete Blood Count AUTO DIFF Stat Comprehensive Metabolic Panel Stat Ethanol (ETOH) Stat Lactate (Lactic Acid) Stat Lipase Stat Procalcitonin Stat Troponin & CK Cardiac Panel Stat 08/13/22 16:28 CT head/brain wo con Stat XR chest 1V Stat 08/13/22 16:29 EKG-12 Lead Stat 08/13/22 17:30 COVID19 -Nasal RAPID Stat Urinalysis and Microscopic Stat Urine Culture Stat Urine Drug Screen, Rapid Stat 08/13/22 18:18 Blood Culture Stat Discontinued Medications Sodium Chloride (Normal Saline 0.9%) 1,000 mls @ 1,000 mls/hr IV BOLUS ONE Stop: 08/13/22 17:26 Last Infusion: 08/13/22 18:01 Dose: 0 mls/hr Documented By: Admin: 08/13/22 16:30 Dose: 1,000 mls/hr Documented By: IRIS Ceftriaxone Sodium 1,000 mg/ (Sodium Chloride) 100 mls @ 200 mls/hr IV NOW ONE Stop: 08/13/22 18:15 Vital Signs Vital signs: Vital Signs - 8 hr 08/13/22 16:13 08/13/22 16:11 08/13/22 16:12 Temperature 98.8 F Pulse Rate 68 71 70 Respiratory Rate 20 14 11 L Blood Pressure 173/89 H Pulse Oximetry 97 97 97 Oxygen Delivery Method Room Air 08/13/22 16:12 08/13/22 16:30 08/13/22 16:30 Temperature Pulse Rate 67 Respiratory Rate 12 Blood Pressure 173/89 H 182/88 H Pulse Oximetry 96 Oxygen Delivery Method Room Air 08/13/22 17:00 08/13/22 17:30 08/13/22 17:34 Temperature Pulse Rate 64 67 65 Respiratory Rate 12 11 L 13 Blood Pressure Pulse Oximetry 98 97 96 Oxygen Delivery Method 08/13/22 17:34 08/13/22 17:53 08/13/22 17:53 Temperature Pulse Rate 63 Respiratory Rate 10 L Blood Pressure 234/112 H 215/100 H Pulse Oximetry 98 Oxygen Delivery Method 08/13/22 18:00 08/13/22 18:00 Temperature Pulse Rate 65 Respiratory Rate 9 L Blood Pressure 192/91 H Pulse Oximetry 98 Oxygen Delivery Method Medical Decision Making Lab Data Lab results reviewed: Yes I reviewed the patient's lab results. 08/13/22 16:22 08/13/22 16:22 Labs: Lab Results 08/13/22 08/13/22 08/13/22 Range/Units 16:22 16:22 16:22 WBC 4.2 L (4.5-11.0) X10^3/uL RBC 4.73 (4.5-5.9) X10^6/uL Hgb 14.2 (13.5-17.5) g/dL Hct 41.9 (41-53) % MCV 88.7 (80-100) fL MCH 30.1 (26-34) PG MCHC 33.9 (30-36) % RDW 14.1 (11.6-14.8) % Plt Count 143 L (150-400) X10^3/uL Neut % (Auto) 39.7 L (50-75) % Lymph % (Auto) 45.4 H (25-40) % Gregory % (Auto) 13.5 (3-14) % Eos % (Auto) 0.7 L (2-4) % Baso % (Auto) 0.7 (0-2) % Neut # (Auto) 1700 (7645-9170) /uL Lymph # (Auto) 1900 (3291-9210) /uL Gregory # (Auto) 600 (0-900) /uL Eos # (Auto) 0 (0-450) /uL Baso # (Auto) 0 (0-100) /uL Sodium 138 (137-145) mmol/L Potassium 3.8 (3.4-5.1) mmol/L Chloride 103 (98-107) mmol/L Carbon Dioxide 26 (22-32) mmol/L BUN 23 H (9-20) mg/dL Creatinine 1.03 (0.66-1.25) mg/dL Estimated GFR > 60 (>60) mL/min BUN/Creatinine Ratio 22.3 H (6-22) Glucose 84 (80-110) mg/dL Lactate 1.1 (0.7-2.1) mmol/L Calcium 8.9 (8.4-10.2) mg/dL Total Bilirubin 0.4 (0.2-1.3) mg/dL AST 45 (17-59) IU/L ALT 29 (<50) IU/L Alkaline Phosphatase 101 (38-126) U/L Total Creatine Kinase 286 H (55-170) U/L CK-MB (CK-2) 0.97 (<2.37) ng/mL CK-MB (CK-2) Rel Index 0.3 L (1.5-5.0) % Troponin I < 0.012 (0.01-0.034) ng/mL Total Protein 7.8 (6.3-8.2) g/dL Albumin 4.1 (3.5-5.0) g/dL Globulin 3.7 (1.7-4.1) g/dL Albumin/Globulin Ratio 1.1 (1.0-2.8) Lipase 28 (23-300) U/L Procalcitonin 0.18 (<0.5) ng/mL Urine Color Urine Appearance Urine pH (4.5-8.0) Ur Specific Vanderwagen (1.000-1.035) Urine Protein (Negative) Urine Glucose (UA) (Negative) g/dL Urine Ketones (NEGATIVE) Urine Occult Blood (Negative) Urine Nitrate (Negative) Urine Bilirubin (NEGATIVE) Urine Urobilinogen (0.2) E.U./dL Ur Leukocyte Esterase (NEGATIVE) Urine RBC (0-5/HPF) Urine WBC (0-5/HPF) Ur Squamous Epith Cells (0-5/HPF) Amorphous Sediment Urine Bacteria (None) Urine Mucus (Negative) Ur Culture Indicated? U Opiates 300ng/mL cut (Negative) Ur Oxycodone Screen (Negative) Urine Methadone Screen (Negative) Ur Barbiturates Screen (Negative) U Tricyclic Antidepress (Negative) Ur Phencyclidine Scrn (Negative) Ur Amphetamines Screen (Negative) U Methamphetamines Scrn (Negative) Ur MDMA Scrn (Ecstasy) (Negative) U Benzodiazepines Scrn (Negative) Urine Cocaine Screen (Negative) U Marijuana (THC) Screen (Negative) Ethyl Alcohol < 10 ( - 10) mg/dL SARS-CoV-2 (PCR) (Negative) 08/13/22 08/13/22 08/13/22 Range/Units 17:30 17:30 17:30 WBC (4.5-11.0) X10^3/uL RBC (4.5-5.9) X10^6/uL Hgb (13.5-17.5) g/dL Hct (41-53) % MCV (80-100) fL MCH (26-34) PG MCHC (30-36) % RDW (11.6-14.8) % Plt Count (150-400) X10^3/uL Neut % (Auto) (50-75) % Lymph % (Auto) (25-40) % Gregory % (Auto) (3-14) % Eos % (Auto) (2-4) % Baso % (Auto) (0-2) % Neut # (Auto) (1514-0486) /uL Lymph # (Auto) (7965-0612) /uL Gregory # (Auto) (0-900) /uL Eos # (Auto) (0-450) /uL Baso # (Auto) (0-100) /uL Sodium (137-145) mmol/L Potassium (3.4-5.1) mmol/L Chloride (98-107) mmol/L Carbon Dioxide (22-32) mmol/L BUN (9-20) mg/dL Creatinine (0.66-1.25) mg/dL Estimated GFR (>60) mL/min BUN/Creatinine Ratio (6-22) Glucose (80-110) mg/dL Lactate (0.7-2.1) mmol/L Calcium (8.4-10.2) mg/dL Total Bilirubin (0.2-1.3) mg/dL AST (17-59) IU/L ALT (<50) IU/L Alkaline Phosphatase (38-126) U/L Total Creatine Kinase (55-170) U/L CK-MB (CK-2) (<2.37) ng/mL CK-MB (CK-2) Rel Index (1.5-5.0) % Troponin I (0.01-0.034) ng/mL Total Protein (6.3-8.2) g/dL Albumin (3.5-5.0) g/dL Globulin (1.7-4.1) g/dL Albumin/Globulin Ratio (1.0-2.8) Lipase (23-300) U/L Procalcitonin (<0.5) ng/mL Urine Color Yellow Urine Appearance Slightly cloudy Urine pH 6.0 (4.5-8.0) Ur Specific Vander[place] 1.025 (1.000-1.035) Urine Protein 1+ H (Negative) Urine Glucose (UA) Negative (Negative) g/dL Urine Ketones Negative (NEGATIVE) Urine Occult Blood 1+ H (Negative) Urine Nitrate Negative (Negative) Urine Bilirubin Negative (NEGATIVE) Urine Urobilinogen 0.2 (0.2) E.U./dL Ur Leukocyte Esterase Negative (NEGATIVE) Urine RBC 1-5/hpf (0-5/HPF) Urine WBC 5-10/hpf H (0-5/HPF) Ur Squamous Epith Cells 0-1 /hpf (0-5/HPF) Amorphous Sediment 1+ Urine Bacteria Many (>30) H (None) Urine Mucus 1+ H (Negative) Ur Culture Indicated? Specimen cultured U Opiates 300ng/mL cut Negative (Negative) Ur Oxycodone Screen Negative (Negative) Urine Methadone Screen Negative (Negative) Ur Barbiturates Screen Negative (Negative) U Tricyclic Antidepress Negative (Negative) Ur Phencyclidine Scrn Negative (Negative) Ur Amphetamines Screen Negative (Negative) U Methamphetamines Scrn Negative (Negative) Ur MDMA Scrn (Ecstasy) Negative (Negative) U Benzodiazepines Scrn Negative (Negative) Urine Cocaine Screen Negative (Negative) U Marijuana (THC) Screen Negative (Negative) Ethyl Alcohol ( - 10) mg/dL SARS-CoV-2 (PCR) Positive H (Negative) Imaging Data CT scan - head: Radiologist's Impression: PROCEDURE:? CT HEAD/BRAIN WO CON ? INDICATIONS:? altered mental status ? TECHNIQUE:? Noncontrast 4.5 mm thick angled axial sections acquired from the foramen magnum to the vertex, with coronal and sagittal reformats.? For radiation dose reduction, the following was used:? automated exposure control, adjustment of mA and/or kV according to patient size.? ? COMPARISON:? [facility], CT, CT HEAD/BRAIN WO CON, 12/07/2020, 13:21.? [facility], CT, CT HEAD/BRAIN WO CON, 11/11/2020, 15:01.? [facility], CT, HEAD WITHOUT CONTRAST, 03/30/2013, 4:52.? [facility], CR, XR CHEST 1V, 08/13/2022, 16:26.? [facility], CT, CT HEAD/BRAIN WO CON, 05/14/2021, 20:19. ? FINDINGS:? Image quality:? Excellent.? ? CSF spaces:? Basal cisterns are patent.? No extra-axial fluid collections.? The ventricles are symmetric in size and shape.? ? Brain:? No intracranial bleeds or masses.? There is cerebral volume loss for age, with resultant ventricular and sulcal prominence.? There are periventricular and deep white matter chronic small vessel ischemic changes.? There is intracranial internal carotid artery atherosclerosis.? ? Skull and face:? Calvarium and visualized facial bones appear intact, without suspicious lesions.? ? Sinuses:? Visualized sinuses and mastoids are clear.? IMPRESSION:? ? No acute intracranial process is seen.? ? Note is made of age-appropriate brain parenchymal volume loss and chronic small vessel ischemic changes. ? If there is strong clinical suspicion for an acute stroke, please consider a brain MRI for further evaluation, as it is more sensitive (assuming that there is no contraindication to MRI). ? Chest x-ray: Radiologist's Impression: PROCEDURE:? XR CHEST 1V ? INDICATIONS:? eval for PNA ? TECHNIQUE:? One view of the chest was acquired.? ? COMPARISON:? [facility], CR, XR CHEST 1V, 05/14/2021, 19:53. ? FINDINGS:? ? Surgical changes and devices:? None.? ? Lungs and pleura:? An incomplete inspiratory result is noted, causing a crowded appearance to the lung markings.? No focal infiltrates are seen.? No pneumothorax or significant pleural effusions are seen. ? ? Mediastinum:? The cardiac contours are within normal limits. The aorta demonstrates calcification and tortuosity. ? Bones and chest wall:? No suspicious bony lesions.? Age-appropriate bony degenerative changes are seen.? Overlying soft tissues appear unremarkable.? IMPRESSION:? Clear lungs, without infiltrates. ECG Data Attestation: I personally reviewed and interpreted this ECG as follows: Interpretation: Sinus rhythm Ventricular rate is 64 Normal axis Normal QRS Normal QTC PVC MDM Narrative Medical decision making narrative: Patient normally ambulates with a walker but has been unable to do this over the past couple days. also states that he is more confused than normal. Patient is COVID-19 positive which could be adding to his weakness and confusion. He is not hypoxic. His chest x-ray is unremarkable. Patient does have a urinary tract infection. A review of prior cultures show that the bacteria that he is had in the past has been susceptible to Rocephin. Blood cultures were obtained. Low suspicion that he is had another stroke. Low suspicion that he is postictal or has had a seizure. Given his presentation patient does require admission to the hospital. Discussed the case with Dr. Giron who will admit for further evaluation and treatment. Discharge Plan Departure Patient Disposition: Admitted as Observation Clinical Impression: Altered mental status, Urinary tract infection, COVID-19
[2022-08-13 16:54] LABS: HEMOLYSIS 71 (0-50)
[2022-08-13 16:55] LABS: Potassium 3.8 mmol/L (3.4-5.1)
[2022-08-13 16:56] LABS: Troponin I < 0.012 ng/mL (0.01-0.034)
[2022-08-13 17:00] LABS: CKMB % Relative Index 0.3 % (1.5-5.0); Creatine Kinase MB 0.97 ng/mL (<2.37)
[2022-08-13 17:01] LABS: Procalcitonin 0.18 ng/mL (<0.5)
[2022-08-13 17:12] LABS: Ethanol (ETOH) < 10 mg/dL
[2022-08-13 17:53] LABS: Bilirubin Urine UA NEGATIVE (NEGATIVE); Color Urine UA YELLOW; Glucose Urine UA NEGATIVE (Negative); Ketones Urine UA NEGATIVE (NEGATIVE); Leukocyte Esterase Urine UA NEGATIVE (NEGATIVE); Nitrite Urine UA NEGATIVE (Negative); Occult Blood Urine UA 1+ (Negative); Protein Urine UA 1+ (Negative); Specific Gravity Urine UA 1.025 (1.000-1.035); Urobilinogen Urine UA 0.2 E.U./dL (0.2)
[2022-08-13 17:55] LABS: COVID19 -Nasal RAPID POSITIVE (Negative)
[2022-08-13 17:58] LABS: UR Morphine/Opiate cutoff 300 Negative (Negative); Ur Creatinine Normal (Normal); Ur Specific Gravity Normal (Normal); Urine Amphetamines Negative (Negative); Urine Barbiturates Negative (Negative); Urine Benzodiazepines Negative (Negative); Urine Cocaine Negative (Negative); Urine MDMA Negative (Negative); Urine Methadone Negative (Negative); Urine Methamphetamines Negative (Negative); Urine Oxycodone Negative (Negative); Urine Phencyclidine Negative (Negative); Urine Tetrahydrocannabinol Negative (Negative); Urine Tricyclic Antidepressant Negative (Negative); Urine pH Normal (Normal)
[2022-08-13 18:00] LABS: Appearance Urine UA Slightly Cloudy
[2022-08-13 18:08] LABS: RBC Urine 1-5/HPF (0-5/HPF)
[2022-08-13 18:09] LABS: Amorphous Sediment Urine 1+; Bacteria Urine Many (>30); Culture Indicated Urine Specimen Cultured; Mucus Urine 1+ (Negative); Squamous Epithelial Cell Urine 0-1 /HPF (0-5/HPF); WBC Urine 5-10/HPF (0-5/HPF)
[2022-08-13] MEDS: cefTRIAXone 1,000 MG in SODIUM CHLORIDE 0.9% 100 ML 200 MG IV ×2 (19:05→22:05)
[2022-08-13] MEDS: levETIRAcetam 250 MG TABLET 1000 MG PO ×2 (19:31→22:28)
--- NOTE | 2022-08-13 19:59 | P.HP_ITS ---
History of Present Illness History of Present Illness Date Patient Seen: 08/13/22 Time Patient Seen: 19:59 Chief complaint: Coughing, lethargic, not eating/drinking Narrative: Joseph Milan is a 77-year-old male with a past medical history of CVA with deficit, seizure disorder, iron-deficiency anemia, HTN, and GERD brought in by?his for evaluation of progressively worsening 3-4 days of confusion and weakness, decreased oral intake- fluid and food, has been taking his medications, no falls.? Normally he ambulates with a walker but has been unable to do that recently.? ER reported patient was confused.? He presented with hypertensive urgency BP is 234/112, 182/88, 215/100, 173/89, noted to have upper and lower extremity weakness unable to ambulate with walker, was given a L bolus of fluid and Rocephin. Unable to obtain accurate HPI or ROS due to patient's encephalopathy. Patient is significantly confused he believes he is in the [facility] and [place], mildly directable but very pleasant in no distress. On admit temp 98.8?, 210/95, 71, 10, 97% on room air. WBC 4.2, platelets 143 the remainder of patient's CBC, chemistry and liver panel is unremarkable. CK 286, urinalysis was positive for protein, blood, WBC, bacteria-culture pending. Patient is COVID positive. The following were all within normal limits troponin, procalcitonin, lactate, ETOH, tox screen, chest x-ray, head CT. EKG I personally reviewed SR with a rate of [address] or T-wave changes. Patient admitted for acute encephalopathy, hypertensive urgency, UTI, and asymptomatic COVID-19. [facility] Medical History CVA, old, alterations of sensations History of small bowel obstruction Hypertension Iron deficiency anemia Seizure disorder Surgical History History of appendectomy History of bowel resection History of colonoscopy with polypectomy Family History Father Cancer Social History household members: spouse Smoking Status: Former smoker alcohol intake: never Meds Home Medications and Allergies Home Medications Medication Instructions Recorded Confirmed Type Disabled Parking Permit 1 ea miscellaneous DIRECTED 12/25/17 05/15/21 History felodipine 10 mg tablet,extended 10 mg PO DAILY 12/25/17 08/13/22 History release 24 hr ferrous sulfate 324 mg (65 mg 1 tab PO DAILY 12/25/17 08/13/22 History iron) tablet,delayed release fluoxetine 10 mg capsule 30 mg PO DAILY 12/25/17 08/13/22 History lisinopril 20 mg tablet 20 mg PO DAILY 12/25/17 08/13/22 History loratadine 10 mg tablet 10 mg PO DAILY PRN Allergy Symptoms 12/25/17 08/13/22 History mirtazapine 30 mg tablet 30 mg PO BEDTIME 12/25/17 08/13/22 History omeprazole 20 mg capsule,delayed 20 mg PO DAILY 05/15/21 08/13/22 History release levetiracetam 500 mg tablet 1,000 mg PO BID #0 tabs 05/18/21 08/13/22 Rx Allergies Allergy/AdvReac Type Severity Reaction Status Date / Time vancomycin [VANCOMYCIN] Allergy Unknown VANCO Verified 08/13/22 16:21 ALLERGY ON SNF FACE SHEET Review of Systems Review of Systems Narrative: Unable to obtain due to encephalopathy Exam Vital Signs (past 8 hours): - 08/13/22 16:13 08/13/22 16:11 08/13/22 16:12 Temperature 98.8 F Pulse Rate 68 71 70 Respiratory Rate 20 14 11 L Blood Pressure 173/89 H Pulse Oximetry 97 97 97 Oxygen Delivery Method Room Air 08/13/22 16:12 08/13/22 16:30 08/13/22 16:30 Temperature Pulse Rate 67 Respiratory Rate 12 Blood Pressure 173/89 H 182/88 H Pulse Oximetry 96 Oxygen Delivery Method Room Air 08/13/22 17:00 08/13/22 17:30 08/13/22 17:34 Temperature Pulse Rate 64 67 65 Respiratory Rate 12 11 L 13 Blood Pressure Pulse Oximetry 98 97 96 Oxygen Delivery Method 08/13/22 17:34 08/13/22 17:53 08/13/22 17:53 Temperature Pulse Rate 63 Respiratory Rate 10 L Blood Pressure 234/112 H 215/100 H Pulse Oximetry 98 Oxygen Delivery Method 08/13/22 18:00 08/13/22 18:00 08/13/22 18:33 Temperature Pulse Rate 65 70 Respiratory Rate 9 L 10 L Blood Pressure 192/91 H Pulse Oximetry 98 98 Oxygen Delivery Method 08/13/22 18:33 08/13/22 19:00 08/13/22 19:00 Temperature Pulse Rate 71 Respiratory Rate 10 L Blood Pressure 220/100 H 210/95 H Pulse Oximetry 97 Oxygen Delivery Method 08/13/22 19:30 08/13/22 19:30 Temperature Pulse Rate 69 Respiratory Rate 9 L Blood Pressure 216/93 H Pulse Oximetry 97 Oxygen Delivery Method Oxygen Delivery Method Room Air Narrative Exam Narrative: General: Patient is a thin frail chronically ill-appearing pleasant male confused, in no distress at this time. HEENT: Normocephalic, atraumatic, extraocular muscles intact, oral pharynx is clear and mucous membranes are very dry. Neck is supple and symmetric, trachea is midline, no adenopathy, no thyroid enlargement, nontender, no masses palpated. Negative for JVD Chest: Breathing with no nasal flaring, retractions, tachypneic or labored Lungs: Auscultation of all lung harris are clear without adventitious sounds, wheezes, rhonchi, or rales. Cardio: regular rate and rhythm without murmur, rubs, or gallops, no carotid bru it, no cardiac pulsations present. Abdomen: Soft nontender, negative for organomegaly, or masses. Bowel sounds are hypoactive present in all 4 quadrants without guarding or rebound, no CVA tenderness. Musculoskeletal: Muscle strength lower extremity strength 3/5, upper extremity strength 4/5, no deformity, crepitus, effusions, cyanosis, clubbing or edema present. Full range of motion intact radial and pedal pulses are normal. Skin: Very dry, poor turgor, feet are extremely dry and cracked, no obvious rashes, ulcerations or petechiae visualized.. Neuro: Alert and orientated to self ONLY, moves all extremities, sensation to touch intact, no gross deficits noted of cranial nerves. Psych: Patient has a chronically ill appearance, pleasant affect, confused. Objective Labs 08/13/22 16:22 08/13/22 16:22 Labs: Laboratory Results - last 24 hr 08/13/22 08/13/22 08/13/22 16:22 16:22 16:22 WBC 4.2 L RBC 4.73 Hgb 14.2 Hct 41.9 MCV 88.7 MCH 30.1 MCHC 33.9 RDW 14.1 Plt Count 143 L Neut % (Auto) 39.7 L Lymph % (Auto) 45.4 H [place] % (Auto) 13.5 Eos % (Auto) 0.7 L Baso % (Auto) 0.7 Neut # (Auto) 1700 Lymph # (Auto) 1900 [place] # (Auto) 600 Eos # (Auto) 0 Baso # (Auto) 0 Sodium 138 Potassium 3.8 Chloride 103 Carbon Dioxide 26 BUN 23 H Creatinine 1.03 Estimated GFR > 60 BUN/Creatinine Ratio 22.3 H Glucose 84 Lactate 1.1 Calcium 8.9 Total Bilirubin 0.4 AST 45 ALT 29 Alkaline Phosphatase 101 Total Creatine Kinase 286 H CK-MB (CK-2) 0.97 CK-MB (CK-2) Rel Index 0.3 L Troponin I < 0.012 Total Protein 7.8 Albumin 4.1 Globulin 3.7 Albumin/Globulin Ratio 1.1 Lipase 28 Procalcitonin 0.18 Urine Color Urine Appearance Urine pH Ur Specific [place] Urine Protein Urine Glucose (UA) Urine Ketones Urine Occult Blood Urine Nitrate Urine Bilirubin Urine Urobilinogen Ur Leukocyte Esterase Urine RBC Urine WBC Ur Squamous Epith Cells Amorphous Sediment Urine Bacteria Urine Mucus Ur Culture Indicated? U Opiates 300ng/mL cut Ur Oxycodone Screen Urine Methadone Screen Ur Barbiturates Screen U Tricyclic Antidepress Ur Phencyclidine Scrn Ur Amphetamines Screen U Methamphetamines Scrn Ur MDMA Scrn (Ecstasy) U Benzodiazepines Scrn Urine Cocaine Screen U Marijuana (THC) Screen Ethyl Alcohol < 10 SARS-CoV-2 (PCR) 08/13/22 08/13/22 08/13/22 17:30 17:30 17:30 WBC RBC Hgb Hct MCV MCH MCHC RDW Plt Count Neut % (Auto) Lymph % (Auto) [place] % (Auto) Eos % (Auto) Baso % (Auto) Neut # (Auto) Lymph # (Auto) [place] # (Auto) Eos # (Auto) Baso # (Auto) Sodium Potassium Chloride Carbon Dioxide BUN Creatinine Estimated GFR BUN/Creatinine Ratio Glucose Lactate Calcium Total Bilirubin AST ALT Alkaline Phosphatase Total Creatine Kinase CK-MB (CK-2) CK-MB (CK-2) Rel Index Troponin I Total Protein Albumin Globulin Albumin/Globulin Ratio Lipase Procalcitonin Urine Color Yellow Urine Appearance Slightly cloudy Urine pH 6.0 Ur Specific [place] 1.025 Urine Protein 1+ H Urine Glucose (UA) Negative Urine Ketones Negative Urine Occult Blood 1+ H Urine Nitrate Negative Urine Bilirubin Negative Urine Urobilinogen 0.2 Ur Leukocyte Esterase Negative Urine RBC 1-5/hpf Urine WBC 5-10/hpf H Ur Squamous Epith Cells 0-1 /hpf Amorphous Sediment 1+ Urine Bacteria Many (>30) H Urine Mucus 1+ H Ur Culture Indicated? Specimen cultured U Opiates 300ng/mL cut Negative Ur Oxycodone Screen Negative Urine Methadone Screen Negative Ur Barbiturates Screen Negative U Tricyclic Antidepress Negative Ur Phencyclidine Scrn Negative Ur Amphetamines Screen Negative U Methamphetamines Scrn Negative Ur MDMA Scrn (Ecstasy) Negative U Benzodiazepines Scrn Negative Urine Cocaine Screen Negative U Marijuana (THC) Screen Negative Ethyl Alcohol SARS-CoV-2 (PCR) Positive H Assessment & Plan Assessment & Plan narrative: Mr. Milan is a 75M with H CVA with residual deficit, seizure disorder, iron-deficiency anemia who presents with Confusion, weakness and found to have UTI. Patient admitted for acute encephalopathy, hypertensive urgency, UTI, and asymptomatic COVID-19. Patient's receive IV fluid hydration, IV antibiotics, brain MRI tomorrow, and PT OT evaluation. Encephalopathy, acute, with weakness, present on admission * Likely metabolic encephalopathy secondary to UTI * ordered MRI brain * Neuro checks Q shift/as needed * PT/OT evaluation * Negative: troponin, procalcitonin, lactate, ETOH, tox screen, head CT, CXR Acute UTI, present on admission * on admission no white count, procalcitonin and lactate were normal * UA positive for protein, blood, WBCs, bacteria * urine culture and blood culture pending * continue IV ceftriaxone * CXR negative for pneumonia, no meningeal signs * NS at 100 cc/HR Hypertensive urgency in the setting of essential hypertension, acute on chronic, present on admission * ED BP is 234/112, 182/88, 215/100, 173/89, Admit 210/95 * Repeat following medication 156/77, 65 HR * Continue lisinopril, felodipine * Due to patient's low heart rate in the 60s to 70s labetalol Q6Hr PRN B/P >180/100 * EKG NSR at a rate of [address] or T-wave changes unchanged from previous EKGs I personally reviewed. COVID-19, acute, present on admission asymptomatic * Patient is asymptomatic, not requiring any oxygen does not meet treatment protocol or interventions * Thrombocytopenia, acute, present on admission * Possibly secondary to UTI/COVID * Admit platelets 143 -review of previous labs platelets were WNL * Last known to 2021 platelets 211 * Will continue to trend History of CVA with left sided weakness, chronic, present on admission * MRI brain ordered as noted above * Continue Remeron, fluoxetine Seizure disorder, chronic, present on admission * continue keppra * Seizure precautions, aspiration precautions Iron-deficiency anemia, chronic, present on admission * Admit H/H 14.2/41.9-WNL * Continue ferrous sulfate GERD, chronic, present on admission * Continue omeprazole CODE: Full Proxy: Fariba Milan, spouse COVID PCR:POSITIVE DVT/VTE prophylaxis: Lovenox and SCDs Disposition: Patient admitted for observation, for IV hydration and antibiotics for treatment and resolution of UTI encephalopathy, expected length of stay not expected to exceed 2 midnights. I have utilized all available immediate resources to obtain, update, or review the patient's current medications. I confirmed that the patient's advanced care plan is present, Code status is documented and/or surrogate decision maker is listed in the patient's medical record. I have personally reviewed patient's chart notes from PCP, specialists, diagnostic imaging, and laboratory results. Scores GCS Nichols coma scale eye opening: Spontaneous Nichols coma scale verbal response: Confused Tanya coma scale motor response: Obey commands Tanya coma scale total score: 14
[2022-08-13] MEDS: lisinopriL 20 MG TABLET PO (20:24)
[2022-08-13 20:49] LABS: Magnesium 1.8 mg/dL (1.6-2.3)
[2022-08-13 20:59] LABS: NT-proBNP (BNP-Adult 18+) 275 pg/mL (<450)
[2022-08-13] MEDS: MIRTAZAPINE 15 MG TABLET 30 MG PO (22:29)
[2022-08-13] MEDS: SENNOSIDES 8.6 MG TABLET 17.2 MG PO (22:29)
[2022-08-13] MEDS: HYDRALAZINE 20 MG/ML VIAL 10 MG IV (22:50)
[2022-08-13] MEDS: SODIUM CHLORIDE 0.9% 1,000 ML 100 ML IV (22:52)
[2022-08-14] VITALS (9 sets, daily range): BP systolic 141–219; BP diastolic 77–119; PULSE 65–102; RESP 15–20; TEMP 36.8–37.2; O2SAT 93–98
[2022-08-14] MEDS: HYDRALAZINE 20 MG/ML VIAL 10 MG IV (04:22)
--- NOTE | 2022-08-14 04:49 | PC.NURSE ---
Pt arrived with all belongings and from the ED. Pt alert to self, confused but pleasant. Blood pressure 214/107, HR 73, at 2250, 10 mg hydralazine given and BP down to 156/77 at 2320. Blood pressure taken again, 219/113, HR 94, at 0400;10 mg Hydralizine given again at 0422. Spoke to hospitalist, Vandana Suarez, orders given for NS at 60ml/hr and revaluate BP. Will monitor BP.
[2022-08-14] MEDS: PANTOPRAZOLE DR 20 MG TABLET PO (05:53)
[2022-08-14 06:31] LABS: Add Manual Diff / Slide Review NO; Basophils Absolute Auto 0 /uL (0-100); Basophils Percent Auto 0.6 % (0-2); Eosinophils Absolute Auto 0 /uL (0-450); Eosinophils Percent Auto 0.8 % (2-4); Hemoglobin 13.5 g/dL (13.5-17.5); Lymphocytes Absolute Auto 1900 /uL (1100-4500); Lymphocytes Percent Auto 35.8 % (25-40); Mean Corpuscular HGB Conc 33.8 % (30-36); Mean Corpuscular Hemoglobin 30.1 PG (26-34); Mean Corpuscular Volume 88.9 fL (80-100); Monocytes Absolute Auto 600 /uL (0-900); Monocytes Percent Auto 11.4 % (3-14); Neutrophils Absolute Auto 2800 /uL (1500-7000); Neutrophils Percent Auto 51.4 % (50-75); Platelet Count 152 X10^3/uL (150-400); Red Blood Cell Count 4.49 X10^6/uL (4.5-5.9); Red Cell Distribution Width 14.2 % (11.6-14.8); White Blood Cell Count 5.5 X10^3/uL (4.5-11.0)
[2022-08-14 06:45] LABS: BUN Creatinine Ratio 16.5 (6-22); Blood Urea Nitrogen 15 mg/dL (9-20); Calcium 8.3 mg/dL (8.4-10.2); Carbon Dioxide 22 mmol/L (22-32); Chloride 109 mmol/L (98-107); Cholesterol 173 mg/dL (140-199); Estimated Glomerular Filt Rate > 60 mL/min (>60); Glucose 70 mg/dL (80-110); HDL Cholesterol 41 mg/dL (40-60); HEMOLYSIS 19 (0-50); LDL Cholesterol Calculated 111 mg/dL (<100); Potassium 3.7 mmol/L (3.4-5.1); Sodium 140 mmol/L (137-145); Triglycerides 107 mg/dL (35-150)
[2022-08-14 08:16] LABS: Creatine Kinase 211 U/L (55-170)
[2022-08-14] MEDS: ENOXAPARIN 40 MG/0.4 ML SYRINGE SUBCUT (09:02)
[2022-08-14] MEDS: levETIRAcetam 250 MG TABLET 1000 MG PO ×2 (09:03→22:12)
[2022-08-14] MEDS: FLUoxetine 10 MG CAPSULE 30 MG PO (09:03)
[2022-08-14] MEDS: AMLODIPINE 5 MG TABLET 10 MG PO (09:03)
[2022-08-14] MEDS: lisinopriL 20 MG TABLET PO (09:03)
[2022-08-14] MEDS: FERROUS SULFATE 325 MG TABLET PO (09:03)
[2022-08-14] MEDS: SODIUM CHLORIDE 0.9% 1,000 ML 60 ML IV (09:11)
--- NOTE | 2022-08-14 11:15 | OT.IP.EVAL ---
Current Diagnoses Urinary tract infection, site not specified (08/13/22) Past Medical History (Last Reviewed 08/13/22 @ 20:05 by [facility] CVA, old, alterations of sensations History of small bowel obstruction Hypertension Iron deficiency anemia Seizure disorder Surgical History (Last Reviewed 08/13/22 @ 20:05 by HOUSTON SantosERICKSON) History of appendectomy History of bowel resection History of colonoscopy with polypectomy Occupational Therapy Inpatient Evaluation/Re-Eval M1 PT/OT-IP Prior Functional Status Start: 08/14/22 12:23 Freq: NEEDED Status: Active Protocol: Document 08/14/22 10:38 [facility] (Rec: 08/14/22 12:49 [facility] [id number]) Medical Review Prior Functional Status Communication Pt needing increased time to process and get his words out at times. Mobility and Gait Pt states use of walker at home. Activities of Daily Living and IADL's Pt states able to do his ADL's but that his assists him occasionally. Social History Household Members spouse,children Living Arrangements House Number of Floors (Floors) Two Floors Number of Stairs To Enter/Railing? Pt states downstairs. Pt has 12 steps with bilateral rails to the upstairs. Home Environment High Toilet Home Equipment Front Wheel Walker,Four Wheel Walker,Manual Wheelchair M2 OT-IP Current Condition Start: 08/14/22 12:23 Freq: Status: Active Protocol: Document 08/14/22 10:38 [facility] (Rec: 08/14/22 12:49 [facility] [id number]) Occupational Therapy Current Condition Current Condition Evaluation Date 08/14/22 Treatment Diagnosis Encephalopathy, UTI, COvid+ Diagnosis Onset Date 08/13/22 M3 OT- IP Subjective and Pain Start: 08/14/22 12:23 Freq: Status: Active Protocol: Document 08/14/22 10:38 [facility] (Rec: 08/14/22 12:49 [facility] [id number]) OT- Subjective Occupational Therapy Visit Type Type Initial Evaluation Visit Start Time 10:38 Visit Stop Time 11:15 Total Visit Minutes 37 Occupational Therapy Visit Comments Patient Comments Pt agreed to get up for OT eval. Patient/Caregiver Goals TO go home. OT Pain Assessment Pain When Pain Assessed At Rest Pain Present Pain Present Denied Pain M4 OT- IP ADL's Start: 08/14/22 12:23 Freq: Status: Active Protocol: Document 08/14/22 10:38 [facility] (Rec: 08/14/22 12:49 [facility] [id number]) OT [id number] Comments OT Self-Feeding Comments Increased time to eat, pt still eating breakfast when OT came in to see the pt. OT ADL-Grooming Comments OT Grooming Comments Pt not wanting to do at this time. OT ADL-Oral Care Comments Oral Care Comments Not performed. OT ADL-Dressing General Eval Lower Body Dressing Ability Maximum Assistance Comments OT Dressing Comments MAXA to assist to alexi socks over his feet with MORALES of another for his sitting balance. OT ADL-Toileting General Evaluation Toileting Ability Total Assistance Comments OT Toileting Comments [place] in place at this time. OT ADL-Bathing Bathing Type Bathing Type Sponge Bath Comments OT Bathing Comments Sponge bath more appropriate at this time. M5 OT- IP IADL's Start: 08/14/22 12:23 Freq: Status: Active Protocol: Document 08/14/22 10:38 [facility] (Rec: 08/14/22 12:49 [facility] [id number]) OT-Instrumental Activities of Daily Living Deficits IADL Deficits Identified Deficits Home Safety Awareness Home Safety Comments Increased time and needing assist to answer questions for completeness. Pt able to vaguely answer the questions. Medication Management Medication Management Caregiver Administers Money Management Money Management Caregiver Provides Assistance Meal Preparation Meal Preparation Caregiver Provides Assist Director Of Guidance Director Of Guidance Caregiver Provides Assist M6 OT- IP Functional Cognition Start: 08/14/22 12:23 Freq: Status: Active Protocol: Document 08/14/22 10:38 [facility] (Rec: 08/14/22 12:49 [facility] [id number]) Cognitive Factors Limiting Selfcare Function Cognitive Ability Level of Alertness Alert Patient Orientation Name,Place Ability to Follow Commands Able to Follow One Step Commands with Increased Time, Able to Follow One Step Commands with Repetition Cognitive Comments Cognitive Assessment Comments Pt increased time to process and follow commands. Pt needing step by step instructions for hand placement for FWW use and transfers at this time. OT- Vision and Hearing OT- Hearing Assessment OT- Hearing Assessment WFL OT- Vision Assessment Vision Assessment Comments Pt able to read the clock accurately. M7 OT- IP Mobility and Balance Start: 08/14/22 12:23 Freq: Status: Active Protocol: Document 08/14/22 10:38 [facility] (Rec: 08/14/22 12:49 [facility] [id number]) OT- Bed Mobility Assessment Supine to Sit Supine to Sit Assist Moderate Assistance,2 Person Assistance Scooting Scooting to Edge of Bed Maximum Assistance,1 Person Assistance OT-Transfer Assessment Sit to and From Stand Sit to and from Stand Moderate Assistance,Maximum Assistance,2 Person Assistance Transfers Transfer Ability Maximum Assistance,2 Person Assistance Technique Transfer Destination Bed,Chair Transfer Technique Stand Step Pivot Devices Transfer Assistive Devices Gait Belt,Front Wheeled Walker Comments Mobility Comments MODAx2 to get the pt from supine to sit and MAXA for use of green pad to scoot him forwards. MAXAx2 to stand to the FWW with blocking his feet and assist to help get his upright , guide the FWW and for his balance able to get to the recliner. OT- Gait Assessment Comments Gait Ability Comments Transfer only at this time. OT- Balance Assessment Sitting Balance and Reactions Static Sitting Balance Ability Poor Dynamic Sitting Balance Ability Poor Standing Balance and Reactions Static Standing Balance Ability Poor Dynamic Standing Balance Ability Poor Comments Other Balance Tests/Deviations/Treatment Pt leaning to the right when : sitting at the edge of the bed. M8 OT- IP Objective Assessments Start: 08/14/22 12:23 Freq: Status: Active Protocol: Document 08/14/22 10:38 [facility] (Rec: 08/14/22 12:49 [facility] [id number]) OT Gross Range of Motion Upper Extremity Range of Motion ROM Impairments Decreased at edge ROM. OT Strength Comments Strength Comments BUE 4-/5 to 4/5 M9 OT- IP Assessment and Plan Start: 08/14/22 12:23 Freq: Status: Active Protocol: Document 08/14/22 10:38 [facility] (Rec: 08/14/22 12:49 [facility] [id number]) OT Summary Assessment and Plan Potential Rehabilitation Potential Good Analytic Complexity at Evaluation Moderate Summary OT Impairments Strength,Balance,Functional Cognition,Functional Mobility, Grooming,Dressing,Toileting, Bathing,Toilet Transfers, Shower Transfers,Activity Tolerance Progress Towards Goals Slow Progress due to Medical Issues,Slow Progress due to Activity Tolerance,Slow Progress due to Cognition Assessment Summary Pt MOD complexity and main barriers are decreased activity tolerance and now needing two person assist for ADL and mobility needs. Pt here for UTI,encephalopathy, and COVID+. Pt has a supportive and son at home to assist with his needs. Pending progress and caregiver training, pt at this current status may need skilled rehab versus home with 24/7 assist and home health. Goals Self-Feeding Goal Independent Grooming Goal Independent Dressing Goal Independent Toileting Goal Independent Bathing Goal Minimal Assistance Toilet Transfer Goal Independent Days to Meet Goals 20 Frequency of Treatment Frequency Of Treatment Once a Day Treatment Plan OT Treatment Plan ADL Training,Functional Cognition Training,Functional Mobility,Patient/Family Education,Discharge Planning Other Treatment Recommendations and Next [place] [facility] [place] Treatment Focus Discharge Recommendations OT Discharge Recommendations SNF Rehab,Home vs SNF Other Discharge Recommendations Pending progress and caregiver training, pt SNF versus home with 24/7 assist and home health.
--- NOTE | 2022-08-14 15:51 | CM.DANOTE ---
Patient is a 77 yo male who was admitted on 08/13/22 for Lethargic. Pt has [employer] and [employer] for insurance and his PCP is [facility]. EMR was reviewed. Per MD, pt with history of CVA with left sided weakness, as well as seizure disorders, and cognitive impairment. Patient does hold current diagnosis of Acute UTI with some encephalopathy and asymptomatic COVID+. Patient remains somewhatconfused. Pt and spouse reside in [place] along with adult son who can assist as needed. Patient does not drive due to cognitive impairment history, and history of seizures. He does have a walker at home for use. Pt has a hx of [facility] and [facility] for SNF. Per OT, pt still a little confused but able to participate and pending pt's progress possible SNF vs home with family assist and HH and recommending CG training with family closer to d/c. Pt's COVID+ a barrier to SNF if recommended. SW left ms for spouse due to pt's COVID precautions and confusion today. Plan: SW to follow closely in the AM for ongoing discussion with spouse and son regarding d/c planning needs and barriers to SNF due to COVID+ and request CG training with PT/OT closer to d/c. [facility] Discharge Planning/Care Management Advanced directive, confirm from FAMILY Start: 08/13/22 20:13 Freq: Q24H Status: Active Protocol: Document 08/13/22 20:13 [facility] (Rec: 08/13/22 20:15 [facility] [id number]) Advance Directive, confirm on record Time 20:14 Person contacted scanned Copy received Yes Advanced directive available on record Yes CM Discharge Assessment Start: 08/14/22 15:49 Freq: Status: Active Protocol: Document 08/14/22 15:50 [facility] (Rec: 08/14/22 15:51 [facility] [id number]) Discharge Planning Assessment Assigned Research Physicist DEAN Plaza DPOA/Assigned Designee Name spouse and son Contact Information [phone] Advance Directives? Yes Advance Directives on File No History Provided By Patient,Family Member, Significant Other,Medical Record Has Patient been admitted in last 30 No days? Prior Living Arrangements House Household Members spouse,children Type of transporation used prior to Relies on Others admit Independent with ADL's Yes: somewhat Is patient alert and oriented? Yes: somewhat Needs Assistance With Meal Prep,Managing Medications ,Home Chores / Shopping Caregiver for Another No DME Already Rented / Owned FWW / Walker Patient/Family Preference Home with Home Health Comment SNF vs HH pending progress Barriers to Discharge Yes Comment COVID+, barrier if SNF needed Discharge Plan Home with Home Health Transportation Arrangement family Referrals Initiated Home Health Additional Comment Will have to see how patient does with the therapy team. Review Status In Process Please Provide Date Initial DC 08/14/22 Assessment Was Performed Next Review Type Continued Stay Review
--- NOTE | 2022-08-14 16:19 | PT.IIE ---
Current Diagnoses Urinary tract infection, site not specified (08/13/22) Surgical History (Last Reviewed 08/13/22 @ 20:05 by RAPHAEL Santos) History of appendectomy History of bowel resection History of colonoscopy with polypectomy Medical History (Last Reviewed 08/13/22 @ 20:05 by RAPHAEL Santos) CVA, old, alterations of sensations History of small bowel obstruction Hypertension Iron deficiency anemia Seizure disorder Physical Therapy Inpatient Evaluation/Re-Eval M1 PT/OT-IP Prior Functional Status Start: 08/14/22 12:23 Freq: NEEDED Status: Active Protocol: Document 08/14/22 16:19 AW (Rec: 08/14/22 17:05 AW [id number]) Medical Review Prior Functional Status Communication Pt needing increased time to process and get his words out at times. Pt is pleasantly conversive at this encounter and speaking in complete sentences. Mobility and Gait Pt states use of walker at home - either 4WW or FWW. He uses a manual wheelchair propelled by family when he leaves the house. 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 Pt can typically mobilize with his walker and SBA. Activities of Daily Living and IADL's Pt states able to do his ADL's but that his assists him occasionally. Pt sponges off because the only shower is upstairs and pt does not climb those stairs. Prior Functional Level (Other details) Pt falls somewhat regularly. Social History Household Members spouse,children Living Arrangements House Number of Floors (Floors) Two Floors Number of Stairs To Enter/Railing? 2 SHILPA without rail. Full flight up to second level but pt stays on entry level sales representative where his hospital bed is located. Home Environment High Toilet Home Equipment Front Wheel Walker,Four Wheel Walker,Manual Wheelchair, Hospital Bed Employment Status Retired Additional Social History Comment Pt is retired from the [employer] and [employer]. He lives in [place] with his spouse, Fariba, and their son, Gee. Gee does not work outside the home and provides the majority of assist. M1 PT/OT-IP Prior Functional Status Start: 08/14/22 15:53 Freq: NEEDED Status: Active Protocol: Document 08/14/22 16:19 AW (Rec: 08/14/22 17:05 AW [id number]) Medical Review Prior Functional Status Communication Pt needing increased time to process and get his words out at times. Pt is pleasantly conversive at this encounter and speaking in complete sentences. Mobility and Gait Pt states use of walker at home - either 4WW or FWW. He uses a manual wheelchair propelled by family when he leaves the house. 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 Pt can typically mobilize with his walker and SBA. Activities of Daily Living and IADL's Pt states able to do his ADL's but that his assists him occasionally. Pt sponges off because the only shower is upstairs and pt does not climb those stairs. Prior Functional Level (Other details) Pt falls somewhat regularly. Social History Household Members spouse,children Living Arrangements House Number of Floors (Floors) Two Floors Number of Stairs To Enter/Railing? 2 SHILPA without rail. Full flight up to second level but pt stays on entry level sales representative where his hospital bed is located. Home Environment High Toilet Home Equipment Front Wheel Walker,Four Wheel Walker,Manual Wheelchair, Hospital Bed Employment Status Retired Additional Social History Comment Pt is retired from the [employer] and [employer]. He lives in [place] with his spouse, Fariba, and their son, Gee. Gee does not work outside the home and provides the majority of assist. M2 PT-IP Current Condition Start: 08/14/22 15:53 Freq: NEEDED Status: Active Protocol: Document 08/14/22 16:19 AW (Rec: 08/14/22 17:05 AW [id number]) Physical Therapy Current Condition Current Condition Evaluation Date 08/14/22 Treatment Diagnosis encephalopathy, UTI, COVID, impaired mobility Onset Date 08/12/22 M3 PT-IP Subjective Start: 08/14/22 15:53 Freq: NEEDED Status: Active Protocol: Document 08/14/22 16:19 AW (Rec: 08/14/22 17:05 AW [id number]) Subjective Physical Therapy Visit Type Type Initial Evaluation Visit Start Time 16:00 Visit Stop Time 16:19 Total Visit Minutes 19 Physical Therapy Visit Comments Patient Comments Pt is willing to participate with PT assessment. Therapy Pain Assessment Pain When Pain Assessed During Mobility Pain Present Pain Present Denied Pain M4 PT-IP Mobility and Gait Start: 08/14/22 15:53 Freq: NEEDED Status: Active Protocol: Document 08/14/22 16:19 AW (Rec: 08/14/22 17:05 AW [id number]) PT-Bed Mobility Assessment Supine to Sit Supine to Sit Minimal Assistance Scooting Scooting to Edge of Bed Minimal Assistance PT-Transfer Assessment Sit to and From Stand Sit to and from Stand Minimal Assistance,1 Person Assistance,Use of Upper Extremities Equipment Transfer Assistive Device Gait Belt,Front Wheeled Walker Orthotic/Prosthetic Devices or Brace: No Transfers Transfer Destination Chair Transfer Technique Stand Step Pivot Transfer Ability Level of Assist Minimal Assistance,1 Person Assistance,Use of Upper Extremities Comments Mobility Comments Pt was lying in bed as PT arrived. BP 146/92 HR 86. Pt agreed to sit up at EOB, transitioning with min assist and some use of the bed rails. He sat with good balance and SBA but needed min A to scoot forward toward feet flat on floor. Pt stood with min A and used FWW to transfer to the bed with min assist. He was able to stand again, transferring to the bed and then back to the chair again with no more than min assist. Pt was left in the chair with call light in reach and chair alarm armed for safety. Gait Assessment Gait Gait Assistance Required: Minimum Assistance,1 Person Assist Distance (Feet) 5 Assistive Devices Assistive Device Gait Belt,Front Wheeled Walker Orthotic/Prosthetic Devices or Brace: No Gait Deviations General Gait Pattern Decreased Stride Length, Decreased Feet Clearance, Flexed Trunk Factors Limiting Gait Function Factors Limiting Gait Function Decreased Strength,Difficulty Following Directions Comments Gait Comments Pt needed assist for balance support and for initiating changes in direction. Stair Climbing Assessment Comments Stair Climbing Comments Not assessed. PT-Balance Assessment Sitting Balance and Reactions Static Sitting Balance Ability Good Dynamic Sitting Balance Ability Fair Standing Balance and Reactions Static Standing Balance Ability Fair Dynamic Standing Balance Ability Fair Device Used FWW M5 PT-IP Objective Assessments Start: 08/14/22 15:53 Freq: NEEDED Status: Active Protocol: Document 08/14/22 16:19 AW (Rec: 08/14/22 17:05 AW [id number]) Orientation Orientation/Cognition Level of Alertness Confusional State Orientation Name Language Function Ability Word Finding Difficulties Safety Awareness Decreased Safety Awareness Memory Description Short Term Impaired,Detention Impaired Comments Pt oriented to self only. He has decreased recall of biographical information when solicited but responds positively when PT states understanding he is a [place] . Gross Range of Motion Upper Extremity ROM Assessment Within Functional Limits Lower Extremity ROM Assessment Bilaterally Impaired Impairments Lacks TKE bilaterally Strength Upper Extremity Strength Assessment Left Impaired Lower Extremity Strength Assessment Left Impaired Comments Strength Comments LUE and LLE grossly 1/2 grade weaker than R side. Sensation Assessment Comments Sensation Comments Unable to formally assess secondary to cognition Muscle Tone Comments Muscle Tone Comments Slight increase in LLE tone noted on exam. M6 PT-IP Treatment Start: 08/14/22 15:53 Freq: NEEDED Status: Active Protocol: Document 08/14/22 16:19 AW (Rec: 08/14/22 17:05 AW [id number]) Physical Therapy Treatment Education Education Provided Safety M7 PT-IP Assessment and Plan Start: 08/14/22 15:53 Freq: NEEDED Status: Active Protocol: Document 08/14/22 16:19 AW (Rec: 08/14/22 17:05 AW [id number]) PT Summary Assessment and Plan Potential Rehabilitation Potential Good Status of Condition at Evaluation Evolving Summary Impairments ROM,Strength,Balance,Tone, Cognition,Bed Mobility, Transfers,Gait Assessment Summary Joseph is a 77 yo man admitted with acute encephalopathy, possible UTI, and COVID infection (asymptomatic). Pt has history of CVA ~8 years ago with left hemiparesis, seizures, and speech impairments. He walks with a walker at home and uses a wheelchair outside the house at baseline. His son provides most assist at home. CLOF: Pt was found resting comfortably in bed, alert and oriented to self only. He was pleasant and cooperative. VS were unremakrable and pt showed no signs of distress. He needed min assist for bed mobility, transfers, and short distance gait with FWW. Assist during gait was primarily for balance support and for directional changes with the walker. Pt is likely mobilizing at or near his functional baseline. PT anticipates he will be able to discharge home with assist once medically stable. Home PT is indicated to ensure smooth transition back to home and for continued transfer and gait training. Goals Bed Mobility Goal Standby Assistance Transfer Goal Standby Assistance,Front Wheeled Walker Gait Goal Standby Assistance,Front Wheel Walker Gait Distance 75 Other Goals - up/down 2 steps without rail CGA Days to Meet Goals 4 Frequency of Treatment Frequency Of Treatment Once a Day Treatment Plan Physical Therapy Treatment Plan Bed Mobility Training,Transfer Training,Gait Training, Therapeutic Exercise,Balance Retraining,Discharge Planning, Hot or Cold Pack,Neuromuscular Re-ed Other Recommendations and Next Treatment transfers, gait with FWW, Focus stair training when able Precautions Other Precautions COVID; falls; seizures Recommendations To Nursing Amount of Assist Needed 1 Person Assist,2 Person Assist Discharge Recommendations PT Discharge Recommendations Home with 23/10 Assist Available,Home Health Transportation Needs at Discharge Private Vehicle,Wheelchair/ Cabulance
[2022-08-14] MEDS: cefTRIAXone 1,000 MG in SODIUM CHLORIDE 0.9% 100 ML 200 MG IV (18:12)
--- NOTE | 2022-08-14 18:34 | P.PN_ITS ---
Subjective Subjective Interval history: Patient states that he is feeling better. Still gets confused a bit but is more clear. Does know that he is in the [facility] and that he lives in [place]. He does realize that he moved from 1 part of this building to another but he did not know he was at the hospital. Not complaining of any new complaints. Exam Vital Signs (past 8 hours): - 08/14/22 11:00 08/14/22 15:00 Pulse Rate 83 Respiratory Rate 17 Blood Pressure 158/83 H 141/92 H Pulse Oximetry 97 Oxygen Flow Rate 0 Oxygen Delivery Method Room Air Oxygen Flow Rate 0 Narrative Exam Narrative: General:? Patient is a thin frail pleasant male confused, in no acute medical distress at this time. HEENT:? Normocephalic, atraumatic, extraocular muscles intact, oral pharynx is clear and mucous membranes are very dry.? Neck is supple and symmetric, trachea is midline, no adenopathy. Lungs:? Auscultation of all lung harris are clear without wheezes or crackles. Cardio: regular rate and rhythm without extra sounds or murmurs. Abdomen:? Soft nontender, negative for organomegaly, or masses.? Bowel sounds are present. Musculoskeletal:? Muscle strength lower extremity strength 3/5, upper extremity strength 4/5.? Full range of motion intact radial and pedal pulses are normal. Skin:? Generally dry skin with no obvious rashes or lesions.? Neuro:? Alert and oriented that he is in the [facility] and lives in [place] but did not know he was in the hospital, moves all extremities, sensation to touch intact. Psych:? Patient has a chronically ill appearance, pleasant affect, confused. Objective Labs 08/14/22 06:10 08/14/22 06:10 Labs: Laboratory Results - last 24 hr 08/13/22 08/13/22 08/13/22 20:25 20:25 20:25 WBC RBC Hgb Hct MCV MCH MCHC RDW Plt Count Neut % (Auto) Lymph % (Auto) Metcalfe % (Auto) Eos % (Auto) Baso % (Auto) Neut # (Auto) Lymph # (Auto) Metcalfe # (Auto) Eos # (Auto) Baso # (Auto) PT 12.0 INR 1.0 Sodium Potassium Chloride Carbon Dioxide BUN Creatinine Estimated GFR BUN/Creatinine Ratio Glucose Calcium Magnesium 1.8 Total Creatine Kinase NT-Pro-B Natriuret Pep 275 Triglycerides Cholesterol LDL Cholesterol, Calc HDL Cholesterol 08/14/22 08/14/22 08/14/22 06:10 06:10 06:10 WBC 5.5 RBC 4.49 L Hgb 13.5 Hct 40.0 L MCV 88.9 MCH 30.1 MCHC 33.8 RDW 14.2 Plt Count 152 Neut % (Auto) 51.4 Lymph % (Auto) 35.8 Metcalfe % (Auto) 11.4 Eos % (Auto) 0.8 L Baso % (Auto) 0.6 Neut # (Auto) 2800 Lymph # (Auto) 1900 Metcalfe # (Auto) 600 Eos # (Auto) 0 Baso # (Auto) 0 PT INR Sodium 140 Potassium 3.7 Chloride 109 H Carbon Dioxide 22 BUN 15 Creatinine 0.91 Estimated GFR > 60 BUN/Creatinine Ratio 16.5 Glucose 70 L Calcium 8.3 L Magnesium Total Creatine Kinase 211 H NT-Pro-B Natriuret Pep Triglycerides 107 Cholesterol 173 LDL Cholesterol, Calc 111 H HDL Cholesterol 41 [facility] Medical History CVA, old, alterations of sensations History of small bowel obstruction Hypertension Iron deficiency anemia Seizure disorder Surgical History History of appendectomy History of bowel resection History of colonoscopy with polypectomy Family History Father Cancer Social History household members: spouse and children Smoking Status: Former smoker alcohol intake: never Assessment & Plan Assessment & Plan narrative: Encephalopathy, acute, with weakness, present on admission * Likely metabolic encephalopathy secondary to infection. Urine culture is negative blood cultures are pending. Patient is COVID positive. * ordered MRI brain -no acute findings. Has some carotid stenosis. * Neuro checks Q shift/as needed * PT/OT evaluation * Negative: troponin, procalcitonin, lactate, ETOH, tox screen, head CT, CXR ?Acute UTI, present on admission * on admission no white count, procalcitonin and lactate were normal * UA positive for protein, blood, WBCs, bacteria -however urine culture negative * urine culture negative and blood culture pending * continue IV ceftriaxone and await blood culture results * CXR negative for pneumonia, no meningeal signs * NS at 60 cc/HR Hypertensive urgency in the setting of essential hypertension, acute on chronic, present on admission * ED BP is 234/112, 182/88, 215/100, 173/89, Admit 210/95, has stabilized to 141/92 today * Continue lisinopril, felodipine * Due to patient's low heart rate in the 60s to 70s labetalol Q6Hr PRN B/P >180/100 * EKG NSR at a rate of [address] or T-wave changes unchanged from previous. COVID-19, acute, present on admission asymptomatic * Patient is asymptomatic, not requiring any oxygen does not meet treatment protocol or interventions * Thrombocytopenia, acute, present on admission * Possibly secondary to COVID * Admit platelets 143 -review of previous labs platelets were WNL, today platelets 152 within normal range. * Last known to 2021 platelets 211 * Will continue to trend ? History of CVA with left sided weakness, chronic, present on admission * ?MRI brain ordered as noted above -old infarct noted on brain MRI. * Continue Remeron, fluoxetine * Seizure disorder, chronic, present on admission * continue keppra * Seizure precautions, aspiration precautions? Iron-deficiency anemia, chronic, present on admission * Admit H/H 14.2/41.9-WNL * Continue ferrous sulfate GERD, chronic, present on admission * Continue omeprazole? Elevated creatinine kinase Continue to trend. Can contribute to patient's encephalopathy. Follow labs and clinically. CODE: Full Proxy: Fariba Milan, spouse COVID PCR:POSITIVE DVT/VTE prophylaxis:? Lovenox and SCDs
[2022-08-14] MEDS: SENNOSIDES 8.6 MG TABLET 17.2 MG PO (22:12)
[2022-08-14] MEDS: MIRTAZAPINE 15 MG TABLET 30 MG PO (22:13)
[2022-08-15] VITALS: BP 146/91; PULSE 67; RESP 18; TEMP 36.2; O2SAT 96
[2022-08-15 05:54] VITALS: BP 179/105; PULSE 79; RESP 17; TEMP 36.4; O2SAT 98
[2022-08-15] MEDS: SODIUM CHLORIDE 0.9% 1,000 ML 60 ML IV (06:47)
[2022-08-15 07:26] LABS: Add Manual Diff / Slide Review NO; Basophils Absolute Auto 0 /uL (0-100); Basophils Percent Auto 0.7 % (0-2); Eosinophils Absolute Auto 100 /uL (0-450); Eosinophils Percent Auto 1.3 % (2-4); Hematocrit 41.2 % (41-53); Hemoglobin 13.8 g/dL (13.5-17.5); Lymphocytes Absolute Auto 2100 /uL (1100-4500); Lymphocytes Percent Auto 46.2 % (25-40); Mean Corpuscular HGB Conc 33.6 % (30-36); Mean Corpuscular Hemoglobin 30.2 PG (26-34); Mean Corpuscular Volume 89.8 fL (80-100); Monocytes Absolute Auto 500 /uL (0-900); Monocytes Percent Auto 10.2 % (3-14); Neutrophils Absolute Auto 1800 /uL (1500-7000); Neutrophils Percent Auto 41.6 % (50-75); Platelet Count 156 X10^3/uL (150-400); Red Blood Cell Count 4.58 X10^6/uL (4.5-5.9); Red Cell Distribution Width 14.4 % (11.6-14.8); White Blood Cell Count 4.4 X10^3/uL (4.5-11.0)
[2022-08-15 07:34] LABS: BUN Creatinine Ratio 13.1 (6-22); Blood Urea Nitrogen 14 mg/dL (9-20); Calcium 8.3 mg/dL (8.4-10.2); Carbon Dioxide 27 mmol/L (22-32); Chloride 108 mmol/L (98-107); Estimated Glomerular Filt Rate > 60 mL/min (>60); Glucose 85 mg/dL (80-110); HEMOLYSIS < 15 (0-50); Potassium 3.7 mmol/L (3.4-5.1); Sodium 141 mmol/L (137-145)
[2022-08-15 07:35] LABS: Creatine Kinase 132 U/L (55-170)
[2022-08-15] MEDS: FLUoxetine 10 MG CAPSULE 30 MG PO (09:56)
[2022-08-15] MEDS: FERROUS SULFATE 325 MG TABLET PO (09:57)
[2022-08-15] MEDS: PANTOPRAZOLE DR 20 MG TABLET PO (09:57)
[2022-08-15] MEDS: ENOXAPARIN 40 MG/0.4 ML SYRINGE SUBCUT (09:57)
[2022-08-15] MEDS: levETIRAcetam 250 MG TABLET 1000 MG PO ×2 (09:57→21:10)
[2022-08-15] MEDS: AMLODIPINE 5 MG TABLET 10 MG PO (09:57)
[2022-08-15] MEDS: lisinopriL 20 MG TABLET PO ×2 (10:00→17:21)
[2022-08-15 12:32] VITALS: BP 185/101; PULSE 74; RESP 18; TEMP 36.3; O2SAT 99
[2022-08-15] MEDS: cefTRIAXone 1,000 MG in SODIUM CHLORIDE 0.9% 100 ML 200 MG IV (13:23)
[2022-08-15] MEDS: HYDRALAZINE 20 MG/ML VIAL 10 MG IV (13:23)
--- NOTE | 2022-08-15 13:40 | PT.IPTN ---
Current Diagnoses Urinary tract infection, site not specified (08/13/22) Physical Therapy Treatment Note M2 PT-IP Current Condition Start: 08/14/22 15:53 Freq: NEEDED Status: Active Protocol: Document 08/14/22 16:19 AW (Rec: 08/14/22 17:05 AW [id number]) Physical Therapy Current Condition Current Condition Evaluation Date 08/14/22 Treatment Diagnosis encephalopathy, UTI, COVID, impaired mobility Onset Date 08/12/22 M3 PT-IP Subjective Start: 08/14/22 15:53 Freq: NEEDED Status: Active Protocol: Document 08/15/22 14:15 TS (Rec: 08/15/22 14:48 TS [id number]) Subjective Physical Therapy Visit Type Type Treatment Note Visit Start Time 13:40 Visit Stop Time 14:01 Total Visit Minutes 21 Number of JOURNEYMAN PIPE WELDER Visits 1 Physical Therapy Visit Comments Patient Comments Pt agreeable to PT. M4 PT-IP Mobility and Gait Start: 08/14/22 15:53 Freq: NEEDED Status: Active Protocol: Document 08/15/22 14:15 TS (Rec: 08/15/22 14:48 TS [id number]) PT-Bed Mobility Assessment Supine to Sit Supine to Sit Moderate Assistance Sit to Supine Sit to Supine Minimal Assistance Scooting Scooting to Edge of Bed Moderate Assistance Scooting Up and Down in Bed Standby Assistance PT-Transfer Assessment Sit to and From Stand Sit to and from Stand Maximum Assistance,1 Person Assistance,Use of Upper Extremities Equipment Transfer Assistive Device Gait Belt,Front Wheeled Walker Orthotic/Prosthetic Devices or Brace: No Comments Mobility Comments Pt found resting in bed, agreeable to PT. Supine to sit ModA for uprighting trunk, provided cues for BUE support on bed. Scooted to EOB ModA with BUE support, pt fatigues quickly. Sitting EOB pt performed leg flex/ext x5 ea LE, seated may ea LE x5. Sit to stand x2 MaxA from elevated bed, provided cues for sequencing, pt bracing LEs against bed for assistance and balance. Pt attempted to ambualte but could not progress LLE, took one step with RLE. Pt sidestepped x3 to HOB for stand to sit. Sit to supine Sorin for LEs into bed, pt scooted SBA to HOB. He was left in bed with call light nearby, tray table, all needs met. Gait Assessment Comments Gait Comments Unable at this time Stair Climbing Assessment Comments Stair Climbing Comments Not assessed. PT-Balance Assessment Sitting Balance and Reactions Static Sitting Balance Ability Good Dynamic Sitting Balance Ability Fair Standing Balance and Reactions Static Standing Balance Ability Fair Dynamic Standing Balance Ability Poor Comments Other Balance Tests/Deviations/Treatment Pt sat EOB with with UE : support progressed ot no UE support. Required MaxA and LEs bracing against bed to stay standing. M5 PT-IP Objective Assessments Start: 08/14/22 15:53 Freq: NEEDED Status: Active Protocol: Document 08/14/22 16:19 AW (Rec: 08/14/22 17:05 AW [id number]) Orientation Orientation/Cognition Level of Alertness Confusional State Orientation Name Language Function Ability Word Finding Difficulties Safety Awareness Decreased Safety Awareness Memory Description Short Term Impaired,Radio Installer Automobile Impaired Comments Pt oriented to self only. He has decreased recall of biographical information when solicited but responds positively when PT states understanding he is a [place] . Gross Range of Motion Upper Extremity ROM Assessment Within Functional Limits Lower Extremity ROM Assessment Bilaterally Impaired Impairments Lacks TKE bilaterally Strength Upper Extremity Strength Assessment Left Impaired Lower Extremity Strength Assessment Left Impaired Comments Strength Comments LUE and LLE grossly 1/2 grade weaker than R side. Sensation Assessment Comments Sensation Comments Unable to formally assess secondary to cognition Muscle Tone Comments Muscle Tone Comments Slight increase in LLE tone noted on exam. M6 PT-IP Treatment Start: 08/14/22 15:53 Freq: NEEDED Status: Active Protocol: Document 08/15/22 14:15 TS (Rec: 08/15/22 14:48 TS [id number]) Physical Therapy Treatment Education Education Provided Safety M7 PT-IP Assessment and Plan Start: 08/14/22 15:53 Freq: NEEDED Status: Active Protocol: Document 08/15/22 14:15 TS (Rec: 08/15/22 14:48 TS [id number]) PT Summary Assessment and Plan Potential Rehabilitation Potential Good Summary Impairments ROM,Strength,Balance,Tone, Cognition,Bed Mobility, Transfers,Gait Assessment Summary Pt was ModA for supine to sit, ModA for scooting to EOB, MaxA for sit to stands and Sorin for sit to supine. Pt is slow to initiate movements when provided cues but can follow single step instructions well. Pt unable to progress gait this session due to weakness and inability to move L foot forward when provided cues. PT recommends SNF vs 24/7 assist available at home and HHPT. Pt lives with spouse and son who currently both have covid, not yet aware of how family is doing with covid. JOURNEYMAN PIPE WELDER is attempting to setup caregiver training but spouse's phone keeps disconnecting. Will continue to attempt to contact spouse and son. Goals Bed Mobility Goal Standby Assistance Transfer Goal Standby Assistance,Front Wheeled Walker Gait Goal Standby Assistance,Front Wheel Walker Gait Distance 75 Other Goals - up/down 2 steps without rail CGA Days to Meet Goals 4 Frequency of Treatment Frequency Of Treatment Once a Day Treatment Plan Physical Therapy Treatment Plan Bed Mobility Training,Transfer Training,Gait Training, Therapeutic Exercise,Balance Retraining,Discharge Planning, Hot or Cold Pack,Neuromuscular Re-ed Other Recommendations and Next Treatment transfers, gait with FWW, Focus stair training when able Precautions Other Precautions COVID; falls; seizures Recommendations To Nursing Amount of Assist Needed 1 Person Assist,2 Person Assist Discharge Recommendations PT Discharge Recommendations Home with 24/7 Assist Available,Home Health,Home vs SNF Transportation Needs at Discharge Private Vehicle,Wheelchair/ Cabulance
--- NOTE | 2022-08-15 14:52 | CM.DPC ---
DCP Cont: Per MD, pt seems still a little confused but making some improvements but possible bp issues today and still getting some IV-Abx. Per PT yesterday, anticipated pt was getting back to baseline and recommending home with assist and HH. Per PAROLE HEARING OFFICER today, pt seems to be needing more assist and lethargic. SW requested PAROLE HEARING OFFICER call family to set up CG training and per PAROLE HEARING OFFICER spouse and son also COVID+ but approved by athlete marketing agent that family can come in specifically for CG training towards planning for discharging the patient. PAROLE HEARING OFFICER working to set up a time for CG training in the AM. Sig HH referral made based on Vendor Calendar in hopes pt can d/c home with family and HH as his COVID+ will be a barrier to discharge. F2F completed but not faxed yet. Plan: SW to follow closely for CG training with family and PT/OT in the AM to confirm if pt safe for d/c home with new Sig HH referral made as COVID+ barrier to SNF. Mela Casillas MSW
[2022-08-15 15:12] VITALS: BP 195/80; PULSE 80
[2022-08-15 16:00] VITALS: TEMP 36.5
--- NOTE | 2022-08-15 16:28 | P.PN_ITS ---
Subjective Subjective Interval history: Patient says he doesn't know why he is in the hospital. He initially says he lives with his mom, but then corrects himself and says he lives with his . He isn't sure of the year, and thinks we are in [place]. He has no complaints. Exam Vital Signs (past 8 hours): - 08/15/22 12:32 08/15/22 15:12 Temperature 97.4 F L Pulse Rate 74 80 Respiratory Rate 18 Blood Pressure 185/101 H 195/80 H Pulse Oximetry 99 Oxygen Flow Rate 0 Oxygen Delivery Method Room Air Oxygen Flow Rate 0 Narrative Exam Narrative: General:? Patient is a thin frail pleasant male, in no acute medical distress at this time. HEENT:? Normocephalic, atraumatic, extraocular muscles intact, oral pharynx is clear and mucous membranes are very dry.? Neck is supple and symmetric, trachea is midline, no adenopathy. Lungs:? Auscultation of all lung harris are clear without wheezes or crackles. Cardio: regular rate and rhythm without extra sounds or murmurs. Abdomen:? Soft nontender, negative for organomegaly, or masses.? Bowel sounds are present. Musculoskeletal:? Muscle strength lower extremity strength 3/5, upper extremity strength 4/5.? Full range of motion intact radial and pedal pulses are normal. Skin:? Generally dry skin with no obvious rashes or lesions.? Neuro:? Alert and oriented x2 Psych:? Patient has a chronically ill appearance, pleasant affect, confused. Objective Labs 08/15/22 06:55 08/15/22 06:55 Labs: Laboratory Results - last 24 hr 08/15/22 08/15/22 08/15/22 06:55 06:55 06:55 WBC 4.4 L RBC 4.58 Hgb 13.8 Hct 41.2 MCV 89.8 MCH 30.2 MCHC 33.6 RDW 14.4 Plt Count 156 Neut % (Auto) 41.6 L Lymph % (Auto) 46.2 H [place] % (Auto) 10.2 Eos % (Auto) 1.3 L Baso % (Auto) 0.7 Neut # (Auto) 1800 Lymph # (Auto) 2100 [place] # (Auto) 500 Eos # (Auto) 100 Baso # (Auto) 0 Sodium 141 Potassium 3.7 Chloride 108 H Carbon Dioxide 27 BUN 14 Creatinine 1.07 Estimated GFR > 60 BUN/Creatinine Ratio 13.1 Glucose 85 Calcium 8.3 L Total Creatine Kinase 132 PFSH Medical History CVA, old, alterations of sensations History of small bowel obstruction Hypertension Iron deficiency anemia Seizure disorder Surgical History History of appendectomy History of bowel resection History of colonoscopy with polypectomy Family History Father Cancer Social History household members: spouse and children Smoking Status: Former smoker alcohol intake: never Assessment & Plan Assessment & Plan narrative: Encephalopathy, acute, with weakness, present on admission * Likely metabolic encephalopathy secondary to infection. Urine culture has GPC, but patient denies urinary symptoms. Blood cx NG at 24 hours. Patient is COVID positive. * ordered MRI brain -no acute findings. Has some carotid stenosis. * Neuro checks Q shift/as needed * PT/OT evaluation rec home with assist * Negative: troponin, procalcitonin, lactate, ETOH, tox screen, head CT, CXR * possibly from underlying dementia which hasn't been properly diagnosed, will have OT perform SLUMS ?Acute asymptomatic bacteriuria, present on admission * on admission no white count, procalcitonin and lactate were normal * UA positive GPC's, continue rocephin * CXR negative for pneumonia, no meningeal signs * NS at 60 cc/HR * patient asymptomatic Hypertensive urgency in the setting of essential hypertension, acute on chronic, present on admission * ED BP is 234/112, 182/88, 215/100, 173/89, Admit 210/95, has stabilized to 141/92 today * Continue lisinopril but increase to 40mg daily * continue home amlodipine * Due to patient's low heart rate in the 60s to 70s labetalol Q6Hr PRN B/P >180/100 * EKG NSR at a rate of [address] or T-wave changes unchanged from previous. COVID-19, acute, present on admission asymptomatic * Patient is asymptomatic, not requiring any oxygen does not meet treatment protocol or interventions * Thrombocytopenia, acute, present on admission * Possibly secondary to COVID * per nursing is having a cough ? History of CVA with left sided weakness, chronic, present on admission * ?MRI brain ordered as noted above -old infarct noted on brain MRI. Nothing acute. * Continue Remeron, fluoxetine Seizure disorder, chronic, present on admission * continue keppra * Seizure precautions, aspiration precautions? Iron-deficiency anemia, chronic, present on admission * Admit H/H 14.2/41.9-WNL * Continue ferrous sulfate GERD, chronic, present on admission * Continue omeprazole? CODE: Full Proxy: Fariba Milan, spouse COVID PCR:POSITIVE DVT/VTE prophylaxis:? Lovenox and SCDs Dispo: Home with on 08/16.
--- NOTE | 2022-08-15 17:42 | OT.IPNOTE ---
Pt having dinner not able to see for OT today, to check on pt tomorrow.
[2022-08-15 20:11] VITALS: BP 165/93; PULSE 85; RESP 14; TEMP 37.1; O2SAT 97
[2022-08-15] MEDS: SENNOSIDES 8.6 MG TABLET 17.2 MG PO (21:10)
[2022-08-15] MEDS: MIRTAZAPINE 15 MG TABLET 30 MG PO (21:11)
[2022-08-16] VITALS (7 sets, daily range): BP systolic 149–170; BP diastolic 78–96; PULSE 65–83; RESP 14–18; TEMP 36.7–37.3; O2SAT 96–99
[2022-08-16] MEDS: PANTOPRAZOLE DR 20 MG TABLET PO (05:35)
[2022-08-16 06:29] LABS: Add Manual Diff / Slide Review NO; Basophils Absolute Auto 0 /uL (0-100); Basophils Percent Auto 0.7 % (0-2); Eosinophils Absolute Auto 100 /uL (0-450); Eosinophils Percent Auto 1.3 % (2-4); Hematocrit 38.3 % (41-53); Hemoglobin 13.1 g/dL (13.5-17.5); Lymphocytes Absolute Auto 2000 /uL (1100-4500); Lymphocytes Percent Auto 40.7 % (25-40); Mean Corpuscular HGB Conc 34.1 % (30-36); Mean Corpuscular Hemoglobin 30.3 PG (26-34); Mean Corpuscular Volume 88.9 fL (80-100); Monocytes Absolute Auto 600 /uL (0-900); Monocytes Percent Auto 11.2 % (3-14); Neutrophils Absolute Auto 2300 /uL (1500-7000); Neutrophils Percent Auto 46.1 % (50-75); Platelet Count 144 X10^3/uL (150-400); Red Blood Cell Count 4.31 X10^6/uL (4.5-5.9)
[2022-08-16 06:40] LABS: BUN Creatinine Ratio 13.7 (6-22); Blood Urea Nitrogen 13 mg/dL (9-20); Calcium 8.3 mg/dL (8.4-10.2); Carbon Dioxide 26 mmol/L (22-32); Chloride 106 mmol/L (98-107); Estimated Glomerular Filt Rate > 60 mL/min (>60); Glucose 101 mg/dL (80-110); HEMOLYSIS < 15 (0-50); Potassium 3.5 mmol/L (3.4-5.1); Sodium 137 mmol/L (137-145)
[2022-08-16] MEDS: levETIRAcetam 250 MG TABLET 1000 MG PO ×2 (09:53→21:43)
[2022-08-16] MEDS: cefTRIAXone 1,000 MG in SODIUM CHLORIDE 0.9% 100 ML 200 MG IV (09:53)
[2022-08-16] MEDS: FERROUS SULFATE 325 MG TABLET PO (09:53)
[2022-08-16] MEDS: FLUoxetine 10 MG CAPSULE 30 MG PO (09:53)
[2022-08-16] MEDS: ENOXAPARIN 40 MG/0.4 ML SYRINGE SUBCUT (09:54)
[2022-08-16] MEDS: AMLODIPINE 5 MG TABLET 10 MG PO (09:54)
[2022-08-16] MEDS: lisinopriL 20 MG TABLET 40 MG PO (09:54)
[2022-08-16] MEDS: POTASSIUM CHLORIDE 20 MEQ TAB 40 MEQ PO (09:57)
--- NOTE | 2022-08-16 10:35 | PT.IPTN ---
Current Diagnoses Urinary tract infection, site not specified (08/13/22) Physical Therapy Treatment Note M2 PT-IP Current Condition Start: 08/14/22 15:53 Freq: NEEDED Status: Active Protocol: Document 08/14/22 16:19 AW (Rec: 08/14/22 17:05 AW [id number]) Physical Therapy Current Condition Current Condition Evaluation Date 08/14/22 Treatment Diagnosis encephalopathy, UTI, COVID, impaired mobility Onset Date 08/12/22 M3 PT-IP Subjective Start: 08/14/22 15:53 Freq: NEEDED Status: Active Protocol: Document 08/16/22 11:33 TS (Rec: 08/16/22 12:05 TS [id number]) Subjective Physical Therapy Visit Type Type Treatment Note Visit Start Time 10:35 Visit Stop Time 11:07 Total Visit Minutes 32 Number of CRUSHED STONE GRADER Visits 2 Physical Therapy Visit Comments Patient Comments Pt agreeable to PT. M4 PT-IP Mobility and Gait Start: 08/14/22 15:53 Freq: NEEDED Status: Active Protocol: Document 08/16/22 11:33 TS (Rec: 08/16/22 12:05 TS [id number]) PT-Bed Mobility Assessment Supine to Sit Supine to Sit Minimal Assistance Scooting Scooting to Edge of Bed Moderate Assistance PT-Transfer Assessment Sit to and From Stand Sit to and from Stand Maximum Assistance,1 Person Assistance,Use of Upper Extremities Equipment Transfer Assistive Device Gait Belt,Front Wheeled Walker Orthotic/Prosthetic Devices or Brace: No Comments Mobility Comments Pt found resting in bed, agreeable to PT. Supine to sit HOB elevated 45D required Sorin for LLE and uprighting trunk, provided cues for BUE support. Scooted to EOB with ModA with pad, provided cues for handrail assist and BUE support on bed, pt demonstrating poor UE strength . Sit to stand x2 MaxA x1, braces back of legs against bed to sit up and for balance. Pt stood with MaxA initially progressed to Sorin, flexes heavily on FWW with increased UE support. Pt ambulated ~5' Sorin-ModA, very slow, requires Max cueing for taking steps and for FWW management, therapist having to move FWW forward. Pt's UEs fatigued, required to sit in chair, stand to sit ModA for eccentric control. Pt was left in chair with call light nearby, RN notified. Gait Assessment Gait Gait Assistance Required: Minimum Assistance,Moderate Assistance,1 Person Assist Distance (Feet) 5 Assistive Devices Assistive Device Gait Belt,Front Wheeled Walker Orthotic/Prosthetic Devices or Brace: No Gait Deviations General Gait Pattern Decreased Stride Length, Decreased Feet Clearance, Flexed Trunk Factors Limiting Gait Function Factors Limiting Gait Function Decreased Strength,Difficulty Following Directions Comments Gait Comments See mobility comments. Stair Climbing Assessment Comments Stair Climbing Comments Not assessed. PT-Balance Assessment Sitting Balance and Reactions Static Sitting Balance Ability Good Dynamic Sitting Balance Ability Fair Standing Balance and Reactions Static Standing Balance Ability Fair Dynamic Standing Balance Ability Poor Device Used FWW Comments Other Balance Tests/Deviations/Treatment Pt initially required Min A : for sitting EOB, progressed to SBA with no UE support. Pt's standing is fair initially requiring MaxA progressing to Sorin, requires cues for upright posture. M5 PT-IP Objective Assessments Start: 08/14/22 15:53 Freq: NEEDED Status: Active Protocol: Document 08/14/22 16:19 AW (Rec: 08/14/22 17:05 AW [id number]) Orientation Orientation/Cognition Level of Alertness Confusional State Orientation Name Language Function Ability Word Finding Difficulties Safety Awareness Decreased Safety Awareness Memory Description Short Term Impaired,Glazing Superintendent Impaired Comments Pt oriented to self only. He has decreased recall of biographical information when solicited but responds positively when PT states understanding he is a [place] . Gross Range of Motion Upper Extremity ROM Assessment Within Functional Limits Lower Extremity ROM Assessment Bilaterally Impaired Impairments Lacks TKE bilaterally Strength Upper Extremity Strength Assessment Left Impaired Lower Extremity Strength Assessment Left Impaired Comments Strength Comments LUE and LLE grossly 1/2 grade weaker than R side. Sensation Assessment Comments Sensation Comments Unable to formally assess secondary to cognition Muscle Tone Comments Muscle Tone Comments Slight increase in LLE tone noted on exam. M6 PT-IP Treatment Start: 08/14/22 15:53 Freq: NEEDED Status: Active Protocol: Document 08/16/22 11:33 TS (Rec: 08/16/22 12:05 TS [id number]) Physical Therapy Treatment Education Education Provided Safety M7 PT-IP Assessment and Plan Start: 08/14/22 15:53 Freq: NEEDED Status: Active Protocol: Document 08/16/22 11:33 TS (Rec: 08/16/22 12:05 TS [id number]) PT Summary Assessment and Plan Potential Rehabilitation Potential Good Summary Impairments ROM,Strength,Balance,Tone, Cognition,Bed Mobility, Transfers,Gait Assessment Summary Pt requiring Sorin for supine to sit with HOB elevated, ModA for scooting to EOB, MaxA for sit to stands and Sorin/ModA for ambulation. He progressed his ambulation to ~5' Sorin/ ModA in room to chair for transfer. He is very slow with gait and all mobility in general, heavy use of UEs on FWW . He requires constant cueing for steps and managment of FWW, therapist has to move FWW forward for him 80% of the time. PT continues to recommend SNF vs 24/7 assist at home and HHPT. Pt remains below baseline and is at increased risk for falls. If pt were to go home would require increased assist and use of w/c for inside of home. If caregivers can provide increased assist and transfering pt to w/c, pt could d/c home. Goals Bed Mobility Goal Standby Assistance Transfer Goal Standby Assistance,Front Wheeled Walker Gait Goal Standby Assistance,Front Wheel Walker Gait Distance 75 Other Goals - up/down 2 steps without rail CGA Days to Meet Goals 4 Frequency of Treatment Frequency Of Treatment Once a Day Treatment Plan Physical Therapy Treatment Plan Bed Mobility Training,Transfer Training,Gait Training, Therapeutic Exercise,Balance Retraining,Discharge Planning, Hot or Cold Pack,Neuromuscular Re-ed Other Recommendations and Next Treatment transfers, gait with FWW, Focus stair training when able Precautions Other Precautions COVID; falls; seizures Recommendations To Nursing Amount of Assist Needed 1 Person Assist,2 Person Assist Discharge Recommendations PT Discharge Recommendations Home with 24/7 Assist Available,Home Health,Home vs SNF Transportation Needs at Discharge Private Vehicle,Wheelchair/ Cabulance
--- NOTE | 2022-08-16 11:07 | OT.IP.TRT ---
Current Diagnoses Urinary tract infection, site not specified (08/13/22) Occupational Therapy Treatment Note M2 OT-IP Current Condition Start: 08/14/22 12:23 Freq: Status: Active Protocol: Document 08/14/22 10:38 [facility] (Rec: 08/14/22 12:49 [facility] [id number]) Occupational Therapy Current Condition Current Condition Evaluation Date 08/14/22 Treatment Diagnosis Encephalopathy, UTI, COvid+ Diagnosis Onset Date 08/13/22 M3 OT- IP Subjective and Pain Start: 08/14/22 12:23 Freq: Status: Active Protocol: Document 08/16/22 11:07 [facility] (Rec: 08/16/22 12:51 [facility] [id number]) OT- Subjective Occupational Therapy Visit Type Type Treatment Note Visit Start Time 11:07 Visit Stop Time 12:10 Total Visit Minutes 63 Occupational Therapy Visit Comments Patient Comments Pt wanting to get back to bed and complaining of his eyes bothering him, feeling like something was in his eye. Able to notify nurse and hospitalist of colored eye mucus from his right eye. Patient/Caregiver Goals Pt wanting to go home. OT Pain Assessment Pain When Pain Assessed At Rest Pain Present Pain Present Pain Reported Location Right Eye Description Acute M4 OT- IP ADL's Start: 08/14/22 12:23 Freq: Status: Active Protocol: Document 08/16/22 11:07 [facility] (Rec: 08/16/22 12:51 [facility] [id number]) OT [id number] Comments OT Self-Feeding Comments When OT walked in , pt having orange slices in his hand and coughing. Pt able to drink coffee and water with no episode of coughing. OT ADL-Grooming General Evaluation Areas Needing Assistance Face Washing Comments OT Grooming Comments Pt able to wash his face after set-up of wash cloth. OT ADL-Oral Care Comments Oral Care Comments Not performed. OT ADL-Dressing Comments OT Dressing Comments MORALES to help change out his gown. OT ADL-Toileting General Evaluation Toileting Ability Total Assistance Comments OT Toileting Comments [place] in place. M5 OT- IP IADL's Start: 08/14/22 12:23 Freq: Status: Active Protocol: Document 08/14/22 10:38 [facility] (Rec: 08/14/22 12:49 [facility] [id number]) OT-Instrumental Activities of Daily Living Deficits IADL Deficits Identified Deficits Home Safety Awareness Home Safety Comments Increased time and needing assist to answer questions for completeness. Pt able to vaguely answer the questions. Medication Management Medication Management Caregiver Administers Money Management Money Management Caregiver Provides Assistance Meal Preparation Meal Preparation Caregiver Provides Assist Live Truck Operator Live Truck Operator Caregiver Provides Assist M6 OT- IP Functional Cognition Start: 08/14/22 12:23 Freq: Status: Active Protocol: Document 08/16/22 11:07 [facility] (Rec: 08/16/22 12:51 [facility] [id number]) Cognitive Factors Limiting Selfcare Function Cognitive Ability Level of Alertness Alert,Confusional State Patient Orientation Name,Place Attention Span Ability Capable of Focused Attention, Unable to Sustain Attention Memory Description Short Term Impaired,Working Impaired Cognitive Tests SLUMS Pt scored 5/30 and only able to states the states we are in , able to add 20+3, draw an X on the triangle, and answer 1/ 4 questions right after paragraph read. Pt's states at baseline her is confused at times and has decreased short term memory. Cognitive Comments Cognitive Assessment Comments Pt needing continuous cues for safety of hand placement, FWW use and initiation to move. Pt needing increased time to process and follow commands. Pt needing step by step commands to follow, push up from the recliner, straighten your legs and back, get one hand on the FWW and then the other hand up on the FWW- Pt taking 30 seconds to come to stand. OT- Vision and Hearing OT- Vision Assessment Vision Assessment Comments Pt complaining of blurred right eye vision, noted colored mucus coming out of right eye. M7 OT- IP Mobility and Balance Start: 08/14/22 12:23 Freq: Status: Active Protocol: Document 08/16/22 11:07 [facility] (Rec: 08/16/22 12:51 [facility] [id number]) OT- Bed Mobility Assessment Sit to Supine Sit to Supine Assist Moderate Assistance OT-Transfer Assessment Sit to and From Stand Sit to and from Stand Contact Guard Assistance,1 Person Assistance Transfers Transfer Ability Minimal Assistance Technique Transfer Destination Bed,Chair Transfer Technique Stand Step Pivot Devices Transfer Assistive Devices Gait Belt,Front Wheeled Walker Comments Mobility Comments Increased and cues for pt to push up from the recliner to stand with CGA to FWW. MORALES with FWW to transfer as pt needing MAXA vc for sequence and assist to help move the FWW so pt able to transfer back to bed. MODA to help get his LLE back into bed. OT- Balance Assessment Sitting Balance and Reactions Static Sitting Balance Ability Fair Dynamic Sitting Balance Ability Poor Standing Balance and Reactions Static Standing Balance Ability Fair Dynamic Standing Balance Ability Poor Comments Other Balance Tests/Deviations/Treatment Pt leaning to the left today : while seated in the recliner. After able to get to midline , pt able to sit with fair balance. M8 OT- IP Objective Assessments Start: 08/14/22 12:23 Freq: Status: Active Protocol: Document 08/14/22 10:38 [facility] (Rec: 08/14/22 12:49 [facility] [id number]) OT Gross Range of Motion Upper Extremity Range of Motion ROM Impairments Decreased at edge ROM. OT Strength Comments Strength Comments BUE 4-/5 to 4/5 M9 OT- IP Assessment and Plan Start: 08/14/22 12:23 Freq: Status: Active Protocol: Document 08/16/22 11:07 [facility] (Rec: 08/16/22 12:51 [facility] [id number]) OT Summary Assessment and Plan Potential Rehabilitation Potential Good Analytic Complexity at Evaluation Moderate Summary OT Impairments Strength,Balance,Functional Cognition,Functional Mobility, Grooming,Dressing,Toileting, Bathing,Toilet Transfers, Shower Transfers,Activity Tolerance Progress Towards Goals Slow Progress due to Medical Issues,Slow Progress due to Activity Tolerance,Slow Progress due to Cognition Assessment Summary Pt able to transfer back to bed with increased time and MORALES overall due to pt needing MAX vc for sequence,safety, and assist to guide the FWW. Pt scored 5/30 on the SLUMS which implies dementia. Able to call pt's and she states pt gets confused at timed and has decreased short term memory. Pt wanting to go home and to go home when medically stable and home health. Goals Self-Feeding Goal Independent Grooming Goal Independent Dressing Goal Independent Toileting Goal Independent Bathing Goal Minimal Assistance Toilet Transfer Goal Independent Days to Meet Goals 15 Frequency of Treatment Frequency Of Treatment Once a Day Treatment Plan OT Treatment Plan ADL Training,Functional Cognition Training,Functional Mobility,Patient/Family Education,Discharge Planning Other Treatment Recommendations and Next Stand at sink for grooming Treatment Focus needs with FWW. Discharge Recommendations OT Discharge Recommendations Home with 24/ Assist Available,Home Health
--- NOTE | 2022-08-16 12:07 | CM.DPNOTE ---
DCP Note According to Dr Wade, patient will stay this evening for additional sessions with therapy and plans for patient to discharge home w/family and Sig tomorrow. Dr Wade discussed plan with spouse Fariba who, per Dr Wade, is agreeable to plan According to LYNN Dyer, patient is cleared for return home, however, may need to use his wheelchair indoors and outdoors temporarily until he regains his strength Spouse and son have refused caregiver training at this time r/t their current COVID infection and symptoms Placed call to spouse Fariba to review DCP; Fariba tells this HEAD AND NECK SURGEON that she was told by the provider that it will be taken one day at a time and the doctor tomorrow will make the decision about discharge Explained that patient has clinically improved and is expected to discharge home tomorrow. Referral has been sent to [facility] and spouse agreeable to this Discussed transportation. Explained that an out of pocket cost is likely for BLS but would get patient home and into the house. Spouse prefers to pick patient up and says I'll get someone to help me CM team following closely for coordination of DCP DEAN Anand
[2022-08-16] MEDS: NEO/POLYMIX B/DEX OPHTH SUSP 1 DROPS EYE-RIGHT ×3 (13:42→21:44)
--- NOTE | 2022-08-16 14:10 | P.PN_ITS ---
Subjective Subjective Interval history: Patient says he doesn't feel any different than normal. Family who takes care of his all has COVID and says they cannot care for him at home today. Exam Vital Signs (past 8 hours): - 08/16/22 06:11 08/16/22 09:54 08/16/22 08:55 Temperature 98.4 F 98.1 F Pulse Rate 65 67 67 Respiratory Rate 16 18 Blood Pressure 169/87 H 168/91 H 168/91 H Pulse Oximetry 96 99 Oxygen Delivery Method Oxygen Flow Rate 0 0 08/16/22 09:45 08/16/22 13:56 Temperature 98.3 F Pulse Rate 67 Respiratory Rate 16 Blood Pressure 149/78 H Pulse Oximetry 98 Oxygen Delivery Method Room Air Oxygen Flow Rate 0 Oxygen Delivery Method Room Air Oxygen Flow Rate 0 Narrative Exam Narrative: General:? Patient is a thin frail pleasant male, in no acute medical distress at this time. HEENT:? Normocephalic, atraumatic, extraocular muscles intact, oral pharynx is clear and mucous membranes are very dry.? Neck is supple and symmetric, trachea is midline, no adenopathy. Lungs:? Auscultation of all lung harris are clear without wheezes or crackles. Cardio: regular rate and rhythm without extra sounds or murmurs. Abdomen:? Soft nontender, negative for organomegaly, or masses.? Bowel sounds are present. Musculoskeletal:? Muscle strength lower extremity strength 3/5, upper extremity strength 4/5.? Full range of motion intact radial and pedal pulses are normal. Skin:? Generally dry skin with no obvious rashes or lesions.? Neuro:? Alert and oriented x2 Psych:? Patient has a chronically ill appearance, pleasant affect, confused. Objective Labs 08/16/22 05:40 08/16/22 05:40 Labs: Laboratory Results - last 24 hr 08/16/22 08/16/22 05:40 05:40 WBC 5.0 RBC 4.31 L Hgb 13.1 L Hct 38.3 L MCV 88.9 MCH 30.3 MCHC 34.1 RDW 14.0 Plt Count 144 L Neut % (Auto) 46.1 L Lymph % (Auto) 40.7 H Brantley % (Auto) 11.2 Eos % (Auto) 1.3 L Baso % (Auto) 0.7 Neut # (Auto) 2300 Lymph # (Auto) 2000 Brantley # (Auto) 600 Eos # (Auto) 100 Baso # (Auto) 0 Sodium 137 Potassium 3.5 Chloride 106 Carbon Dioxide 26 BUN 13 Creatinine 0.95 Estimated GFR > 60 BUN/Creatinine Ratio 13.7 Glucose 101 Calcium 8.3 L PFSH Medical History CVA, old, alterations of sensations History of small bowel obstruction Hypertension Iron deficiency anemia Seizure disorder Surgical History History of appendectomy History of bowel resection History of colonoscopy with polypectomy Family History Father Cancer Social History household members: spouse and children Smoking Status: Former smoker alcohol intake: never Assessment & Plan Assessment & Plan narrative: Encephalopathy, acute, with weakness, present on admission * Likely metabolic encephalopathy secondary to infection. Urine culture has GPC , but patient denies urinary symptoms. Blood cx NG at 48 hours. Patient is COVID positive. * ordered MRI brain -no acute findings. Has some carotid stenosis. * Neuro checks Q shift/as needed * PT/OT evaluation rec home with assist * Negative: troponin, procalcitonin, lactate, ETOH, tox screen, head CT, CXR * possibly from underlying dementia which hasn't been properly diagnosed, [facility] with OT was 08/29 ?Acute asymptomatic bacteriuria, present on admission * on admission no white count, procalcitonin and lactate were normal * UA with pyuria, urine culture growing Aerococcus * CXR negative for pneumonia, no meningeal signs * NS at 60 cc/HR * will elect to treat given possibly worsening encephalopathy * continue kadi robledo on amoxicillin to finish 7 days on 08/20 Hypertensive urgency in the setting of essential hypertension, acute on chronic, present on admission * ED BP is 234/112, 182/88, 215/100, 173/89, Admit 210/95, has stabilized to 141/92 today * Continue lisinopril but increase to 40mg daily * continue home amlodipine * Due to patient's low heart rate in the 60s to 70s labetalol Q6Hr PRN B/P >180/100 * EKG NSR at a rate of [address] or T-wave changes unchanged from previous. COVID-19, acute, present on admission asymptomatic * Patient is asymptomatic, not requiring any oxygen does not meet treatment protocol or interventions * Thrombocytopenia, acute, present on admission * Possibly secondary to COVID * per nursing is having a cough ? History of CVA with left sided weakness, chronic, present on admission * ?MRI brain ordered as noted above -old infarct noted on brain MRI. Nothing acute. * Continue Remeron, fluoxetine Seizure disorder, chronic, present on admission * continue keppra * Seizure precautions, aspiration precautions? Iron-deficiency anemia, chronic, present on admission * Admit H/H 14.2/41.9-WNL * Continue ferrous sulfate GERD, chronic, present on admission * Continue omeprazole? CODE: Full Proxy: Fariba Milan, spouse COVID PCR:POSITIVE DVT/VTE prophylaxis:? Lovenox and SCDs Dispo: Home with on 08/17.
[2022-08-16] MEDS: AMOXICILLIN 250 MG CAPSULE 500 MG PO (21:42)
[2022-08-16] MEDS: SENNOSIDES 8.6 MG TABLET 17.2 MG PO (21:43)
[2022-08-16] MEDS: MIRTAZAPINE 15 MG TABLET 30 MG PO (21:43)
[2022-08-17 02:00] VITALS: BP 149/90; PULSE 66; RESP 17; TEMP 36.9; O2SAT 97
[2022-08-17 05:50] VITALS: BP 149/77; PULSE 65; RESP 17; TEMP 36.7; O2SAT 98
[2022-08-17] MEDS: PANTOPRAZOLE DR 20 MG TABLET PO (06:19)
[2022-08-17 08:00] VITALS: BP 145/87; PULSE 66; RESP 17; TEMP 36.3; O2SAT 95
--- NOTE | 2022-08-17 09:19 | P.DS_ITS ---
History of Present Illness History of Present Illness Date Patient Seen: 08/17/22 Time Patient Seen: 09:20 Chief complaint: Coughing, lethargic, not eating/drinking Narrative: Per admitting provider, Joseph Milan is a 77-year-old male with a past medical history of CVA with deficit, seizure disorder, iron-deficiency anemia, HTN, and GERD brought in by?his for evaluation of progressively worsening 3-4 days of confusion and weakness, decreased oral intake- fluid and food, has been taking his medications, no falls.? Normally he ambulates with a walker but has been unable to do that recently.? ER reported patient was confused.? He presented with hypertensive urgency BP is 234/112, 182/88, 215/100, 173/89, noted to have upper and lower extremity weakness unable to ambulate with walker, was given a L bolus of fluid and Rocephin. Unable to obtain accurate HPI or ROS due to patient's encephalopathy. Patient is significantly confused he believes he is in the [facility] and [place], mildly directable but very pleasant in no distress. On admit temp 98.8?, 210/95, 71, 10, 97% on room air. WBC 4.2, platelets 143 the remainder of patient's CBC, chemistry and liver panel is unremarkable. CK 286, urinalysis was positive for protein, blood, WBC, bacteria-culture pending. Patient is COVID positive. The following were all within normal limits troponin, procalcitonin, lactate, ETOH, tox screen, chest x-ray, head CT. EKG I personally reviewed SR with a rate of [address] or T-wave changes. Patient admitted for acute encephalopathy, hypertensive urgency, UTI, and asymptomatic COVID-19. Discharge Providers Provider Date of admission: 08/13/22 18:34 Discharge Date: 08/17/22 Primary care physician: Gemini Nix MD Consults: 08/13/22 19:54 Consult to Occupational Therapy Evaluate & Treat Comment: Physician Instructions: Evaluate and treat Consult to Physical Therapy Evaluate & Treat Comment: Physician Instructions: Evaluate and Treat 08/16/22 13:33 Consult to Home Health Routine Comment: Reason For Exam: Home health services upon discharge Discharge provider: Teo Valladares DO Summary Hospital Course Discharge Diagnosis: Metabolic encephalopathy, acute, with weakness, present on admission ?Acute asymptomatic bacteriuria, present on admission Hypertensive urgency in the setting of essential hypertension, acute on chronic, present on admission COVID-19, acute, present on admission asymptomatic History of CVA with left sided weakness, chronic, present on admission Seizure disorder, chronic, present on admission Iron-deficiency anemia, chronic, present on admission GERD, chronic, present on admission Hospital Course: This is a 77 year old male with PMH of CVA, seizure disorder, HTN, GERD admitted with confusion and weakness. MRI showed no acute infarct, and tested positive for COVID 19. He improved with supportive care, and no additional therapies were needed given lack of hypoxia with his COVID infection. He was noted to have a possible UTI, with urine culture growing aerococcus. Despite his lack of symptoms, given presentation he was started on antibiotics and will complete another 3 days of amoxicillin at home for a 7 day total course. His encephalopathy slowly improved with time, supportive care and antibiotics. He w orked with PT/OT and according to family at the time of discharge was moving slightly better than his usual self. He was a bit hypertensive during his hospitalization, but improved with his home antihypertensives, but after hospitalization follow up is recommended with PCP for possible additional co ntrol. SLUMS testing was performed (score 5/30) which was consistent with an underlying dementia in addition to his acute encephalopathy. Time Spent with Patient Time spent: Greater than 30 minutes Exam Vital Signs (past 8 hours): - 08/17/22 02:00 08/17/22 05:50 08/17/22 08:00 Temperature 98.5 F 98.1 F 97.3 F L Pulse Rate 66 65 66 Respiratory Rate 17 17 17 Blood Pressure 149/90 H 149/77 H 145/87 H Pulse Oximetry 97 98 95 Oxygen Flow Rate 0 0 0 Oxygen Delivery Method Room Air Oxygen Flow Rate 0 Narrative Exam Narrative: General:? Patient is a thin frail pleasant male, in no acute medical distress at this time. HEENT:? Normocephalic, atraumatic, extraocular muscles intact, oral pharynx is clear and mucous membranes are moist? Neck is supple and symmetric, trachea is midline, no adenopathy. Lungs:? Auscultation of all lung harris are clear without wheezes or crackles. Cardio: regular rate and rhythm without extra sounds or murmurs. Abdomen:? Soft, nontender, nondistended Skin:? Generally dry skin with no obvious rashes or lesions.? Neuro:? Alert and oriented to name and hospital Psych:? Patient has a chronically ill appearance, pleasant affect, confused. Objective Labs 08/16/22 05:40 08/16/22 05:40 [facility] Medical History CVA, old, alterations of sensations History of small bowel obstruction Hypertension Iron deficiency anemia Seizure disorder Surgical History History of appendectomy History of bowel resection History of colonoscopy with polypectomy Family History Father Cancer Social History household members: spouse and children Smoking Status: Former smoker alcohol intake: never Discharge Plan Discharge Plan Patient Disposition: Home Health Service Provider Discharge Comment: Patient admitted to the hospital with weakness, confusion due to COVID and possible urinary tract infection. Complete course of antibiotics at home. Discharge orders & Medications Prescriptions: New amoxicillin 500 mg tablet 500 mg PO TID 3 Days Qty: 9 0RF Continued loratadine 10 MG tablet 10 mg PO DAILY PRN (Reason: Allergy Symptoms) mirtazapine 30 MG tablet 30 mg PO BEDTIME lisinopril 20 mg tablet 20 mg PO DAILY Patient Comments: Hold for SBP < 110 or HR < 60 fluoxetine 10 mg capsule 30 mg PO DAILY felodipine 10 mg tablet extended release 24 hr 10 mg PO DAILY Patient Comments: Hold for SBP < 110 or HR < 60 ferrous sulfate 324 mg (65 mg iron) tablet,delayed release (DR/EC) 1 tab PO DAILY Disabled Parking Permit 1 ea miscellaneous DIRECTED omeprazole 20 mg capsule,delayed release(DR/EC) 20 mg PO DAILY levetiracetam 500 mg tablet 1,000 mg PO BID Qty: 0 0RF Follow up/Referrals: Gemini Nix MD [Primary Care Provider] - Diet/Activity/Treatments Diet: Diet as Tolerated Activity: As tolerated Visit Report/Discharge Packet Instructions: Urinary Tract Infection, DI for Prescription Opioid Use, COVID-19 Stand Alone Forms: Patient Portal/API, Stroke Signs & Symptoms Discharge Data Primary Care Provider: Gemini Nix Discharges patient from system. Discharge Date/Time: 08/17/22 15:05
[2022-08-17] MEDS: levETIRAcetam 250 MG TABLET 1000 MG PO (09:40)
[2022-08-17] MEDS: AMLODIPINE 5 MG TABLET 10 MG PO (09:40)
[2022-08-17] MEDS: FLUoxetine 10 MG CAPSULE 30 MG PO (09:40)
[2022-08-17 09:41] VITALS: BP 145/87; PULSE 66
[2022-08-17] MEDS: AMOXICILLIN 250 MG CAPSULE 500 MG PO ×2 (09:41→14:50)
[2022-08-17] MEDS: lisinopriL 20 MG TABLET 40 MG PO (09:41)
[2022-08-17] MEDS: FERROUS SULFATE 325 MG TABLET PO (09:41)
[2022-08-17] MEDS: ENOXAPARIN 40 MG/0.4 ML SYRINGE SUBCUT (09:41)
[2022-08-17] MEDS: NEO/POLYMIX B/DEX OPHTH SUSP 1 DROPS EYE-RIGHT ×2 (10:07→12:35)
--- NOTE | 2022-08-17 10:39 | CM.DPNOTE ---
Spoke to Claudia at Health system and told her pt. discharging today. She said they could see patient for PT services on 08/18 and RN services for 08/21. Faxed final clinicals including face to face and order. Vanessa Amaya CM Assist.
--- NOTE | 2022-08-17 11:31 | CM.DPNOTE ---
DC Note Discharge order for home now in Placed call to spouse Fariba, updated. Fariba plans to pick patient up between approx [phone]; made RN Nicolle aware Discussed [facility] w/spouse and she remains agreeable LIZA Mendez, has confirmed with [facility] that PT is available to f/u tomorrow 5 Plan: Discharge home today w/spouse via private auto, [facility] RN/PT/OT/HOSPITAL ADMISSIONS CLERK JW
--- NOTE | 2022-08-17 12:44 | PT.IPTN ---
Current Diagnoses Urinary tract infection, site not specified (08/13/22) Physical Therapy Treatment Note M2 PT-IP Current Condition Start: 08/14/22 15:53 Freq: NEEDED Status: Active Protocol: Document 08/17/22 12:13 SP (Rec: 08/17/22 14:30 SP [id number]) Physical Therapy Current Condition Current Condition Evaluation Date 08/14/22 Treatment Diagnosis encephalopathy, UTI, COVID, impaired mobility Onset Date 08/12/22 M3 PT-IP Subjective Start: 08/14/22 15:53 Freq: NEEDED Status: Active Protocol: Document 08/17/22 12:13 SP (Rec: 08/17/22 14:30 SP [id number]) Subjective Physical Therapy Visit Type Type Treatment Note Visit Start Time 12:13 Visit Stop Time 12:44 Total Visit Minutes 31 Notes FISH STRINGER ASSEMBLER provided 2nd person assist required during tx. Number of RIBBON HAND Visits 3 Physical Therapy Visit Comments Patient Comments Pt was laying in bed when arrived, agreeable to PT and trial 1 step management for awareness of 2 step mgt enter home. M4 PT-IP Mobility and Gait Start: 08/14/22 15:53 Freq: NEEDED Status: Active Protocol: Document 08/17/22 12:13 SP (Rec: 08/17/22 14:30 SP [id number]) PT-Bed Mobility Assessment Supine to Sit Supine to Sit Maximum Assistance,1 Person Assistance Scooting Scooting to Edge of Bed Maximum Assistance PT-Transfer Assessment Sit to and From Stand Sit to and from Stand Maximum Assistance,1 Person Assistance,Use of Upper Extremities Equipment Transfer Assistive Device Gait Belt,Front Wheeled Walker Orthotic/Prosthetic Devices or Brace: No Transfers Transfer Destination Chair Transfer Technique Stand Step Pivot Transfer Ability Level of Assist Moderate Assistance,Maximum Assistance,1 Person Assistance ,Use of Upper Extremities Comments Mobility Comments Pt supine in bed when arrived. Max A x1 trunk right sit HOB flat (like at home), cues UE positioning push from bed. Scoot EOB Max A (R trunk lean) use transfer pad advanced pelvic forward. Pt states used be able to do self. STS Max A x1 w/Max cues for UE repositioning bed>FWW, stand step pivot to chair w/ FWW, Mod/ Max A trunk support wt shift fwd/upright posture max cues for sequence each LE, added assist FWW posiitoning cues center and back up fully to chair, reach back, Mod/Max A slow descend sit in chair. STS Max A come to stand, trial step up onto 4 step for enterance home (no HRs told) Max A pt BUE WB on FISH STRINGER ASSEMBLER/RIBBON HAND, only able with alot effort lift 1 RLE on step, unable to advance RLE to step. Pt demonstrates LE bending and trunk flex forward, assist BUE to FWW for added self support and cues upright posture, back step to chair w/ FWW. Mod / Max A x1. Pt had loose BM unknown to him. RIBBON HAND assist Max A x1 w/ FWW support for standing front chair while FISH STRINGER ASSEMBLER provided pericare and brief mgt. Nurse removed catheter in standing. Pt returned to chair. Nurse and FISH STRINGER ASSEMBLER took over care. Gait Assessment Comments Gait Comments Stand step pivot only, STS and trialed step up stair, only able place 1 RLE on step but unable advance gait and stairs due to decreased standing endurance/strength. Stair Climbing Assessment Comments Stair Climbing Comments see mobility and gait comments . Unable to complete 2 stairs w/ HRs has to enter home. PT-Balance Assessment Sitting Balance and Reactions Static Sitting Balance Ability Fair Dynamic Sitting Balance Ability Poor Standing Balance and Reactions Static Standing Balance Ability Poor Dynamic Standing Balance Ability Poor Device Used FWW Comments Other Balance Tests/Deviations/Treatment Called to discuss unable : to complete stair mgt during tx and she stated he has in past and family has process and will do fine upon DC. M5 PT-IP Objective Assessments Start: 08/14/22 15:53 Freq: NEEDED Status: Active Protocol: Document 08/14/22 16:19 AW (Rec: 08/14/22 17:05 AW [id number]) Orientation Orientation/Cognition Level of Alertness Confusional State Orientation Name Language Function Ability Word Finding Difficulties Safety Awareness Decreased Safety Awareness Memory Description Short Term Impaired,Combo Welder Impaired Comments Pt oriented to self only. He has decreased recall of biographical information when solicited but responds positively when PT states understanding he is a [place] . Gross Range of Motion Upper Extremity ROM Assessment Within Functional Limits Lower Extremity ROM Assessment Bilaterally Impaired Impairments Lacks TKE bilaterally Strength Upper Extremity Strength Assessment Left Impaired Lower Extremity Strength Assessment Left Impaired Comments Strength Comments LUE and LLE grossly 1/2 grade weaker than R side. Sensation Assessment Comments Sensation Comments Unable to formally assess secondary to cognition Muscle Tone Comments Muscle Tone Comments Slight increase in LLE tone noted on exam. M6 PT-IP Treatment Start: 08/14/22 15:53 Freq: NEEDED Status: Active Protocol: Document 08/17/22 12:13 SP (Rec: 08/17/22 14:30 SP [id number]) Physical Therapy Treatment Education Education Provided Safety M7 PT-IP Assessment and Plan Start: 08/14/22 15:53 Freq: NEEDED Status: Active Protocol: Document 08/17/22 12:13 SP (Rec: 08/17/22 14:30 SP [id number]) PT Summary Assessment and Plan Potential Rehabilitation Potential Good Summary Impairments ROM,Strength,Balance,Tone, Cognition,Bed Mobility, Transfers,Gait,Activity Tolerance Progress Towards Goals Slow Progress due to Activity Tolerance Assessment Summary Pt requires Mod/Max A x1-2 persons for standing/transfers , pivot w/ FWW only due to decreased endurance and strength. He was unable to complete 2 step mgt with max A x2 person to enter home. Discussed with lack of strength and suggested alternative ramp vs medical personel EMS assist up 2 stairs to enter home safely. declined over home. unavailable for CGT states will be fine when called her. RIBBON HAND recommending HHPT 24/7 EMS enter home vs SNF for safety strength progression mobility transfers. Will continue to assess progress. Goals Bed Mobility Goal Standby Assistance Transfer Goal Standby Assistance,Front Wheeled Walker Gait Goal Standby Assistance,Front Wheel Walker Gait Distance 75 Other Goals - up/down 2 steps without rail CGA Days to Meet Goals 4 Frequency of Treatment Frequency Of Treatment Once a Day Treatment Plan Physical Therapy Treatment Plan Bed Mobility Training,Transfer Training,Gait Training, Therapeutic Exercise,Balance Retraining,Discharge Planning, Hot or Cold Pack,Neuromuscular Re-ed Other Recommendations and Next Treatment bed mobility, transfers w/ FWW Focus , gait FWW, stair training when able for safety enter home. Precautions Other Precautions COVID; falls; seizures Recommendations To Nursing Amount of Assist Needed 2 Person Assist Discharge Recommendations PT Discharge Recommendations Home with 24/ Assist Available,Home Health,Home vs SNF Equipment Needed for Home Before suggested ramp/EMS enter home Discharge safely Transportation Needs at Discharge Private Vehicle,Wheelchair/ Cabulance
--- NOTE | 2022-08-17 12:54 | OT.IPNOTE ---
Nursing states pt able to do bed bath earlier, just worked with WAFER FABRICATOR , had a bowel movement and now eating lunch and waiting for his to pick him up to go home.
== END 2022-08-17 15:05 | disposition home or self-care (01) | DRG 689 ==
LOC: ED 17:45 → AC 18:36
PROVIDERS: Nurse Practitioner Family; Admitting Provider Neuromusculoskeletal Medicine, Sports Medicine; Emergency Provider Emergency Medicine; PCP Internal Medicine; Referring Provider Emergency Medicine; Visit Provider Neuromusculoskeletal Medicine, Sports Medicine
DX: N39.0 Urinary tract infection, site not specified (principal); G93.41 Metabolic encephalopathy; U07.1 COVID-19; I69.954 Hemiplegia and hemiparesis following unspecified cerebrovascular disease affecting left non-dominant side; I16.0 Hypertensive urgency; I10 Essential (primary) hypertension; D69.6 Thrombocytopenia, unspecified; G40.909 Epilepsy, unspecified, not intractable, without status epilepticus; D50.9 Iron deficiency anemia, unspecified; K21.9 Gastro-esophageal reflux disease without esophagitis; B96.89 Other specified bacterial agents as the cause of diseases classified elsewhere; F03.90 Unspecified dementia, unspecified severity, without behavioral disturbance, psychotic disturbance, mood disturbance, and anxiety; Z87.891 Personal history of nicotine dependence
CPT/HCPCS: 36415; 51798; 70450; 70548; 70553; 71045; 80048; 80053; 80061; 80305; 80320; 81001; 82550; 82553; 83605; 83690; 83735; 83880; 84145; 84484; 85025; 85610; 87040; 87077; 87086; 87635; 93005; 96365; 97116; 97162; 97166; 97530; 97535; 99285; C9803; A9579; J0360; J0696; J1650

== ENCOUNTER → 2022-11-09 12:30 | Outpatient (CLI) | payer MEDICARE, OTHER, SELFPAY ==
[2022-08-13 20:06] VITALS: BMI 24.7
--- NOTE | 2022-11-09 | DI.CT.S_ITS ---
PROCEDURE: CT HEAD/BRAIN WO CON INDICATIONS: RECENT CVA AND HEMORRHAGE / STROKE FOLLOW UP TECHNIQUE: Noncontrast 4.5 mm thick angled axial sections acquired from the foramen magnum to the vertex, with coronal and sagittal reformats. For radiation dose reduction, the following was used: automated exposure control, adjustment of mA and/or kV according to patient size. COMPARISON: [facility], MR, MR STROKE, 08/14/2022, 14:12. [facility], CT, CT HEAD/BRAIN WO CON, 05/14/2021, 20:19. [facility], CT, CT HEAD/BRAIN WO CON, 08/13/2022, 16:39. FINDINGS: Image quality: Excellent. CSF spaces: Basal cisterns are patent. No extra-axial fluid collections. The ventricles are symmetric in size and shape. Brain: No intracranial bleeds or masses. There is cerebral volume loss for age, with resultant ventricular and sulcal prominence. There are periventricular and deep white matter chronic small vessel ischemic changes. There is intracranial internal carotid artery atherosclerosis. Skull and face: Calvarium and visualized facial bones appear intact, without suspicious lesions. Sinuses: Visualized sinuses and mastoids are clear. IMPRESSION: No intracranial hemorrhage is seen. No territorial infarction is seen. Dictated by: Joni Saez M.D. on 11/09/2022 at 12:56 Approved by: Joni Saez M.D. on 11/09/2022 at 12:57
== END ==
PROVIDERS: PCP Internal Medicine; Referring Provider Psychiatry & Neurology Neurology; Visit Provider Psychiatry & Neurology Neurology
DX: I63.9 Cerebral infarction, unspecified (principal)
CPT/HCPCS: 70450

== ENCOUNTER 2022-12-28 13:11 | Inpatient (IN) | payer MEDICARE, OTHER, SELFPAY ==
[2022-08-13 20:06] VITALS: BMI 24.7
[2022-12-28] VITALS (26 sets, daily range): BP systolic 125–177; BP diastolic 62–102; PULSE 91–135; RESP 10–29; TEMP 36.6–37.4; O2SAT 94–100
--- NOTE | 2022-12-28 | PATH_ITS ---
[facility] Accession Number: [id number] No. of containers..01 Tissue . 01 Material submitted: . colon - SMALL BOWEL AND CECUM . 01 Diagnosis: Small Bowel And Cecum, Segmental Resection: Small bowel with hemorrhagic transmural necrosis, likely secondary to ischemia. Resection margins are viable. Unremarkable colonic parenchyma. No dysplasia or malignancy identified. [facility] 01/02/2023 1601 Local . 01 Electronically signed: . Kelly Morgan MD, Pathologist NPI- [id number] . 01 Gross description: . The specimen is received in formalin labeled with the patient's name, , and small bowel and cecum, consists of three fragments of bowel. The first is tortuous small bowel measuring 73.5 cm in length by 3.2 cm in average diameter attached to a short fragment of cecum measuring 6.0 cm in length by 3.7 cm in diameter. No appendix is identified. The proximal margin is inked blue while the cecal margin is inked black and the mesenteric margin is inked green. The serosa of the small bowel is diffusely congested while the serosa of the cecum is zapata, smooth, and relatively unremarkable. The lumen is filled with red hemorrhagic material. The mucosa of the small bowel is red-brown and diffusely denuded with attenuated folds. The cecal mucosa is red to zapata and velvety with slightly attenuated folds. No lesions are identified. The lindsey average 0.2 cm thick with no perforations or diverticula identified. There is an area of luminal narrowing with a diameter of approximately 0.7 cm, and is located 6.2 cm from the ileocecal valve; however, this area is probe patent. No lymph node candidates are identified upon palpation. . The second fragment consists of presumed small bowel in a U-shape measuring 6.7 x 4.8 x 3.2 cm with a central adhesed area measuring 5.2 x 2.3 x 0.5 cm. The diffusely roughened stapled margins are differentially inked orange and green. The serosa is diffusely roughened with two full thickness areas of defect, the measures 1.2 x 0.6 cm, and is located 2.1 cm from the orange-inked margin while the second area of defect measures 1.7 x 0.5 cm and is located 1.6 cm from the green-inked margin. The first area of defect is inked black while the second area of defect is inked blue. The lumen contains zapata mucoid material, and the mucosa is pink-zapata and velvety with no polyps or lesions identified. No additional perforations or areas of anastomosis are grossly identified. The lindsey average 0.3 cm thick, and no lymph node candidates are identified. . The third fragment is presumed small bowel and measures 5.2 cm in length by 2.2 cm in diameter with congested, smooth serosa. The reyna lines are differentially inked black and green, and the mesenteric margin is inked orange. The lumen contains hemorrhagic material. The mucosa is zapata, velvety with slightly edematous folds and no polyps or lesions identified. The lindsey average 0.2 cm thick with no perforations or diverticula identified. No lymph node candidates are identified upon palpation. . Photographic Printer sections are submitted as follows: A1: First fragment rep margins en face. A2-A3: Rep first fragment hemorrhagic tissue with area of narrowing. A4: First fragment normal cecal mucosa and ileocecal valve. A5: Second fragment rep margins en face. A6: Second fragment area of adhesion. A7: Second fragment areas of full thickness defect. A8: Second fragment unremarkable mucosa. A9: Third fragment rep margins en face. A10: Unremarkable third fragment. ([id number]) /MRV 12/29/2022 1821 Local . 01 Pathologist provided ICD-10: K55.9 . 01 CPT . 309416 Specimen Comment: A courtesy copy of this report has been sent to [phone] Performed at: 01 [facility] [address] [place] [address] [address], [place], [place] [id number] MD Mandeep Coates MD Phone: [phone]
--- NOTE | 2022-12-28 13:32 | DI.RAD.S_ITS ---
PROCEDURE: XR CHEST 1V INDICATIONS: COUGH TECHNIQUE: One view of the chest was acquired. COMPARISON: [facility], CR, XR CHEST 1V, 08/13/2022, 16:26. FINDINGS: Surgical changes and devices: None. Lungs and pleura: Lungs are clear. No pleural effusions or pneumothorax. Mediastinum: Mediastinal contours appear normal. Heart size is normal. Bones and chest wall: No suspicious bony lesions. Overlying soft tissues appear unremarkable. IMPRESSION: No acute cardiopulmonary disease process. Dictated by: Taylor Monson MD, PhD on 12/28/2022 at 14:36 Approved by: Taylor Monson MD, PhD on 12/28/2022 at 14:37
--- NOTE | 2022-12-28 13:38 | DI.CT.S_ITS ---
PROCEDURE: CT ABDOMEN PELVIS W CON INDICATIONS: R SIDED ABD PAIN, RIGID ABDOMEN TECHNIQUE: After the administration of intravenous contrast, axial sections acquired from the lung bases to the pubic symphysis. Coronal and sagittal reformats were performed. For radiation dose reduction, the following was used: automated exposure control, adjustment of mA and/or kV according to patient size. COMPARISON: [facility], CT, ABDOMEN/PELVIS WITH CONTRAST, 03/07/2017, 14:57. [facility], CT, ABDOMEN/PELVIS WITH CONTRAST, 01/29/2015, 14:21. FINDINGS: Image quality: Excellent. Lung bases: Unremarkable. Heart: No significant findings. ABDOMEN: Liver: Unremarkable. Gallbladder: Unremarkable. Biliary ducts: Unremarkable. Pancreas: Unremarkable. Spleen: Unremarkable. Adrenal Glands: Unremarkable. Kidneys and Ureters: Unremarkable. Stomach and Bowel: Diffusely dilated loops of small bowel are seen throughout the abdomen with transition point in the right upper quadrant. A few dilated fluid-filled loops of small bowel in the right upper quadrant demonstrate decreased mural enhancement, and closed loop obstruction with ischemia is not excluded. Moderate stool is seen in the rectum. Peritoneum: Small amount nonspecific perihepatic ascites is present. No free air. Ventral Wall: No hernias. Abdominal Nodes: No retroperitoneal or mesenteric adenopathy by size criteria. Vessels: Aorta and inferior vena cava are normal in size. PELVIS: Pelvic Organs: Unremarkable. Bladder: Unremarkable. Pelvic Nodes: No enlarged lymph nodes. Miscellaneous: No hernias are seen. Bones: Numerous age-indeterminate compression fractures are seen with relative sparing of L3 and L1. IMPRESSION: 1. Small bowel obstruction with transition point in the right upper quadrant. Swirled appearance of the mesentery with hypoenhancing loops of bowel in the right upper quadrant is suspicious for a possible closed loop obstruction with ischemia. 2. Mild perihepatic ascites may be reactive. No pneumoperitoneum or definite signs of perforation. 3. Numerous age-indeterminate compression fractures in the thoracolumbar spine. Findings were discussed with the referring physician, Dr. Urbina, by telephone on 12/28/2022 at 2:28 PM. Approved by: Param Gillis M.D. on 12/28/2022 at 14:32
--- NOTE | 2022-12-28 13:53 | ED_ITS ---
HPI - Sepsis General Chief Complaint: Weakness Mode of arrival: Wheelchair Source: patient and family Limitations: no limitations Evaluation Sepsis Screen: Possible Severe Sepsis Risk Sepsis Infection Criteria Present: Suspected New Infection (abdominal) Narrative: 77-year-old male with history of seizure disorder, protein calorie malnutrition, CVA presents from home by private vehicle for abdominal pain and generalized weakness. History is obtained from and daughter at bedside, who stated that the patient was in his usual state of health yesterday evening, however shortly after dinner he vomited once and began to complain of right-sided abdominal pain. Pain worsened throughout the night and today they decided to bring him in for evaluation. Patient toxic in appearance on arrival, tachycardic, tachypneic, obvious abdominal distention. Review of Systems Review of Systems ROS Unobtainable: Unobtainable due to medical condition Patient History Medical History (Updated 12/28/22 @ 15:50 by Meghan Urbina MD) CVA, old, alterations of sensations History of small bowel obstruction Hypertension Iron deficiency anemia Seizure disorder Surgical History History of appendectomy History of bowel resection History of colonoscopy with polypectomy Family History Father Cancer Social History household members: spouse and children Smoking Status: Former smoker alcohol intake: never Smoking Status: Former smoker alcohol intake frequency: 0-2 drinks per day Substance Use Type: does not use Exam Initial Vital Signs Initial Vital Signs: Vital Signs Blood Pressure 128/102 H 12/28/22 13:19 Const: Awake, toxic appearing, moderate distress Eyes: PERRL, EOMI, conjunctiva normal ENT: Poor dentition, dry mucous membranes Cardiac: Tachycardia, irregularly irregular RESP: Tachypnea, clear bilaterally GI: Atraumatic, distended, firm, tender to light and deep palpation Skin: Warm, Dry, intact, no rashes Neuro: Oriented to self, follows commands Psych: Appropriate for current condition Course Course Course Narrative: Toxic appearing patient with abdominal distention and abnormal vital signs. Sepsis alert initiated on arrival, we will cover for intra-abdominal infections with Zosyn. Call placed stat to Radiology to take patient quickly for CT scan. Orders Ordered: ED Orders 12/28/22 13:32 XR chest 1V Stat Urinalysis and Microscopic Stat EKG-12 Lead Stat 12/28/22 13:33 Covid-19 + FLU A/B + RSV - PCR Stat 12/28/22 13:38 CT abdomen pelvis w con Stat 12/28/22 13:50 Complete Blood Count AUTO DIFF Stat Comprehensive Metabolic Panel Stat Lactate (Lactic Acid) Stat PTT Partial Thromboplastin Nav Stat Procalcitonin Stat Prothrombin Time INR Stat Troponin & CK Cardiac Panel Stat 12/28/22 14:40 Blood Culture Stat Acetaminophen (Acetaminophen 325 Mg Tablet) 650 mg PO Q6H PRN PRN Reason: Fever/Mild Pain (1-3) Fentanyl (Fentanyl 100 Mcg/2 Ml Inj) 0 mcg IV Q5M PRN PRN Reason: Pain, Moderate (4-6) Lactated Ringer's (Lactated Ringers) 1,800 mls @ 600 mls/hr 30 ml/kg infuse over 3 hr (1800 ml) IV NOW ONE Stop: 12/28/22 16:31 Piperacillin Sod/Tazobactam (Sod 3.375 gm/ Sodium Chloride) 100 mls @ 25 mls/hr IV Q8H DOROTHEA Lactated Ringer's (Lactated Ringers) 1,000 mls @ 125 mls/hr IV CONT DOROTHEA Stop: 12/29/22 03:44 Levetiracetam 1,000 mg/ Sodium (Chloride) 110 mls @ 440 mls/hr IV Q12H DOROTHEA Naloxone HCl (Naloxone 0.4 Mg/Ml Vial) 0.2 mg IV Q2MIN PRN PRN Reason: Opiate Reversal Ondansetron HCl (Ondansetron 4 Mg/2 Ml Inj) 4 mg IV NOW PRN PRN Reason: Nausea And Vomiting Pantoprazole Sodium (Pantoprazole 40 Mg Vial) 40 mg IV DAILY DOROTHEA Discontinued Medications Piperacillin Sod/Tazobactam (Sod 4.5 gm/ Sodium Chloride) 100 mls @ 200 mls/hr IV NOW ONE Stop: 12/28/22 13:33 Last Admin: 12/28/22 14:55 Dose: 200 mls/hr Documented By: MELANY Ondansetron HCl (Ondansetron 4 Mg/2 Ml Inj) 4 mg IV NOW ONE Stop: 12/28/22 14:17 Last Admin: 12/28/22 14:19 Dose: 4 mg Documented By: MELANY Reevaluation(s) Reevaluation #1: Preliminary review of CT scan shows extensive dilated loops of bowel with small fluid collection in the right upper quadrant. Laboratory work significant for leukocytosis 25, lactic acid at greater than 8. He is receiving IV fluids, antiemetics. Reevaluation #2: Received a call from Radiology, patient appears to have closed loop small bowel obstruction with evidence of necrotic bowel. Stat call placed to general surgery, who came quickly to bedside to evaluate the patient. and patient updated at bedside. General surgery to take patient to OR for emergent decompression. Patient admitted for further treatment. Vital Signs Vital signs: Vital Signs - 8 hr 12/28/22 13:26 12/28/22 13:19 12/28/22 13:20 Temperature 97.9 F Pulse Rate 120 H 124 H Respiratory Rate 28 H 22 Blood Pressure 128/102 H 128/102 H Pulse Oximetry 100 Oxygen Delivery Method Room Air 12/28/22 13:30 12/28/22 14:01 12/28/22 14:04 Temperature Pulse Rate 118 H 114 H 114 H Respiratory Rate 24 22 24 Blood Pressure Pulse Oximetry Oxygen Delivery Method 12/28/22 14:04 12/28/22 14:15 12/28/22 14:15 Temperature Pulse Rate 111 H Respiratory Rate 25 H Blood Pressure 152/76 H 177/86 H Pulse Oximetry 94 Oxygen Delivery Method Sepsis Evaluation (ED) Triage Screening Sepsis Screen: Possible Severe Sepsis Risk Level 1 - Infection Sepsis Infection Criteria Present: Suspected New Infection (abdominal) Level 2 - SIRS Sepsis SIRS Criteria Present: Respiratory Rate > 20 bpm or PaCO2 < 32 mmHg, WBC < 4k or > 12k or Bands > 10% and Pulse > 90 bpm Level 3 - Organ Dysfunction Sepsis Organ Dysfunction Criteria Present: Lactic Acid > 2 mmol/L Response It is my opinion that his patient have a likely infectious etiology for meeting sepsis criteria: Does Fluid calculation based on 30 mL/kg within 1hr of criteria: ABW used Antibiotics initiated within 1 hr of Sepis dx: Yes Tissue Perfusion Reassessed within 6 hrs of infusion start time: Yes Date of Tissue Perfusion Reassessment completed: 12/28/22 Time Tissue Perfusion Reassessment completed: 15:30 [facility] - Sepsis Lab Data 12/28/22 13:50 12/28/22 13:50 Labs: Lab Results 12/28/22 12/28/22 12/28/22 Range/Units 13:33 13:50 13:50 WBC 25.0 H (4.5-11.0) X10^3/uL RBC 4.68 (4.5-5.9) X10^6/uL Hgb 14.2 (13.5-17.5) g/dL Hct 42.8 (41-53) % MCV 91.5 (80-100) fL MCH 30.4 (26-34) PG MCHC 33.2 (30-36) % RDW 15.2 H (11.6-14.8) % Plt Count 197 (150-400) X10^3/uL Neut % (Auto) Not Reportable Lymph % (Auto) Not Reportable [place] % (Auto) Not Reportable Eos % (Auto) Not Reportable Baso % (Auto) Not Reportable Lymph # (Auto) Not Reportable [place] # (Auto) Not Reportable Baso # (Auto) Not Reportable Total Counted 100 Seg Neutrophils % 67.0 (38-70) % Band Neutrophils % 22.0 H (3-7) % Lymphocytes % (Manual) 4.0 L (25-45) % Monocytes % (Manual) 5.0 (2-11) % Eosinophils % (Manual) 2.0 (2-4) % Neutrophils # (Manual) 64871 H (8616-3690) /uL Toxic Granulation Present H Toxic Vacuolation 1 RBC Morphology See below Anisocytosis 1+ H PT 13.3 H (10.1-12.7) SECONDS INR 1.2 (0.9-1.3) APTT (26-36) SECONDS Sodium (137-145) mmol/L Potassium (3.4-5.1) mmol/L Chloride (98-107) mmol/L Carbon Dioxide (22-32) mmol/L BUN (9-20) mg/dL Creatinine (0.66-1.25) mg/dL Estimated GFR (>60) mL/min BUN/Creatinine Ratio (6-22) Glucose (80-110) mg/dL Lactate (0.7-2.1) mmol/L Calcium (8.4-10.2) mg/dL Total Bilirubin (0.2-1.3) mg/dL AST (17-59) IU/L ALT (<50) IU/L Alkaline Phosphatase (38-126) U/L Total Creatine Kinase (55-170) U/L Troponin I (0.01-0.034) ng/mL Total Protein (6.3-8.2) g/dL Albumin (3.5-5.0) g/dL Globulin (1.7-4.1) g/dL Albumin/Globulin Ratio (1.0-2.8) Procalcitonin (<0.5) ng/mL SARS-CoV-2 (PCR) Negative (Negative) Influenza A (RT-PCR) Flu a negative (NEGATIVE) Influenza B (RT-PCR) Flu b negative (NEGATIVE) RSV (PCR) Negative (Negative) 12/28/22 12/28/22 12/28/22 Range/Units 13:50 13:50 13:50 WBC (4.5-11.0) X10^3/uL RBC (4.5-5.9) X10^6/uL Hgb (13.5-17.5) g/dL Hct (41-53) % MCV (80-100) fL MCH (26-34) PG MCHC (30-36) % RDW (11.6-14.8) % Plt Count (150-400) X10^3/uL Neut % (Auto) Lymph % (Auto) [place] % (Auto) Eos % (Auto) Baso % (Auto) Lymph # (Auto) [place] # (Auto) Baso # (Auto) Total Counted Seg Neutrophils % (38-70) % Band Neutrophils % (3-7) % Lymphocytes % (Manual) (25-45) % Monocytes % (Manual) (2-11) % Eosinophils % (Manual) (2-4) % Neutrophils # (Manual) (0270-5498) /uL Toxic Granulation Toxic Vacuolation RBC Morphology Anisocytosis PT (10.1-12.7) SECONDS INR (0.9-1.3) APTT 32 (26-36) SECONDS Sodium 146 H (137-145) mmol/L Potassium 4.1 (3.4-5.1) mmol/L Chloride 103 (98-107) mmol/L Carbon Dioxide 17 L (22-32) mmol/L BUN 40 H (9-20) mg/dL Creatinine 2.26 H (0.66-1.25) mg/dL Estimated GFR 30 L (>60) mL/min BUN/Creatinine Ratio 17.7 (6-22) Glucose 157 H (80-110) mg/dL Lactate 8.3 H* (0.7-2.1) mmol/L Calcium 10.9 H (8.4-10.2) mg/dL Total Bilirubin 0.5 (0.2-1.3) mg/dL AST 43 (17-59) IU/L ALT 51 H (<50) IU/L Alkaline Phosphatase 128 H (38-126) U/L Total Creatine Kinase 65 (55-170) U/L Troponin I < 0.012 (0.01-0.034) ng/mL Total Protein 9.6 H (6.3-8.2) g/dL Albumin 5.2 H (3.5-5.0) g/dL Globulin 4.4 H (1.7-4.1) g/dL Albumin/Globulin Ratio 1.2 (1.0-2.8) Procalcitonin 12.5 H (<0.5) ng/mL SARS-CoV-2 (PCR) (Negative) Influenza A (RT-PCR) (NEGATIVE) Influenza B (RT-PCR) (NEGATIVE) RSV (PCR) (Negative) ECG Data Interpretation: atrial fibrillation with RVR, no STEMI, tachycardia Treatment and disposition Code Status and discussions:: full code Shared decision making:: Critical Care Time Critical Care Time Critical Care Time: Yes Total Critical Care Time: 43 Attestation: Septic shock requiring aggressive resuscitation measures. Discussion with Radiology, discussion with General surgery, shared decision-making with , f requent reassessments, close hemodynamic monitoring. Discharge Plan Departure Patient Disposition: Admitted As Inpatient Clinical Impression: Septic shock, Bowel obstruction, Ischemia, bowel Admit Date/Time: 12/28/22 15:18 Admit Provider: Kenny Hernandez
[2022-12-28 14:04] LABS: Hematocrit 42.8 % (41-53); Hemoglobin 14.2 g/dL (13.5-17.5); Mean Corpuscular HGB Conc 33.2 % (30-36); Mean Corpuscular Hemoglobin 30.4 PG (26-34); Mean Corpuscular Volume 91.5 fL (80-100); Platelet Count 197 X10^3/uL (150-400); Red Blood Cell Count 4.68 X10^6/uL (4.5-5.9); Red Cell Distribution Width 15.2 % (11.6-14.8)
[2022-12-28 14:12] LABS: Add Manual Diff / Slide Review YES
[2022-12-28 14:13] LABS: INR 1.2 (0.9-1.3); Prothrombin Time 13.3 SECONDS (10.1-12.7)
[2022-12-28 14:16] LABS: Neutrophils Absolute Manual 22250 /uL (3000-5900); Total Cells Counted 100
[2022-12-28 14:17] LABS: Anisocytosis 1+
[2022-12-28 14:18] LABS: Toxic Granulation Present; Toxic Vacuolation 1
[2022-12-28 14:19] LABS: Albumin 5.2 g/dL (3.5-5.0); Albumin Globulin Ratio 1.2 (1.0-2.8); Alkaline Phosphatase 128 U/L (38-126); Aspartate Aminotransferase 43 IU/L (17-59); BUN Creatinine Ratio 17.7 (6-22); Bilirubin Total 0.5 mg/dL (0.2-1.3); Blood Urea Nitrogen 40 mg/dL (9-20); Calcium 10.9 mg/dL (8.4-10.2); Carbon Dioxide 17 mmol/L (22-32); Chloride 103 mmol/L (98-107); Creatine Kinase 65 U/L (55-170); Estimated Glomerular Filt Rate 30 mL/min (>60); Globulin 4.4 g/dL (1.7-4.1); Glucose 157 mg/dL (80-110); HEMOLYSIS < 15 (0-50); Potassium 4.1 mmol/L (3.4-5.1); Sodium 146 mmol/L (137-145); Total Protein 9.6 g/dL (6.3-8.2)
[2022-12-28] MEDS: ONDANSETRON 4 MG/2 ML INJ IV (14:19)
[2022-12-28 14:25] LABS: Alanine Aminotransferase 51 IU/L (<50); Lactate (Lactic Acid) 8.3 mmol/L (0.7-2.1)
[2022-12-28 14:28] LABS: PTT Partial Thromboplastin Tim 32 SECONDS (26-36)
[2022-12-28 14:30] LABS: Troponin I < 0.012 ng/mL (0.01-0.034)
[2022-12-28 14:33] LABS: Influenza A - CEPHEID Flu A NEGATIVE (NEGATIVE); Influenza B - CEPHEID Flu B NEGATIVE (NEGATIVE); Respiratory Syncytial Virus Negative (Negative)
[2022-12-28 14:34] LABS: Procalcitonin 12.5 ng/mL (<0.5)
[2022-12-28] MEDS: PIPERACILLIN/TAZO 4.5 GM in SODIUM CHLORIDE 0.9% 100 ML IV (14:55)
--- NOTE | 2022-12-28 14:55 | PM.CN ---
History of Present Illness Consult details Date Patient Seen: 12/28/22 Time Patient Seen: 14:55 Chief complaint: weakness Narrative: Joseph is a 77-year-old man who presented with 24 hours of severe abdominal pain, nausea and vomiting. In the ER he had a CT scan which demonstrated closed loop bowel obstruction with free fluid in the abdomen. He had an elevated white blood cell count and a lactate of 8. He had some sort of exploratory laparotomy and possible bowel resection here in the past but they are uncertain why. He had a stroke a few months ago and is nonverbal. The original exploratory laparotomy surgeries are not available in the EMR over there is a note from Dr. Ashton which reports that he had had 2 exploratory laparotomies for bowel obstructions 1 of which involved a small-bowel resection for necrotic bowel and he had a gastrostomy tube placed after 1 of those operations. Meds Home Medications and Allergies Home Medications Medication Instructions Recorded Confirmed Type Disabled Parking Permit 1 ea miscellaneous DIRECTED 12/25/17 08/15/22 History felodipine 10 mg tablet,extended 10 mg PO DAILY 12/25/17 08/13/22 History release 24 hr ferrous sulfate 324 mg (65 mg 1 tab PO DAILY 12/25/17 08/13/22 History iron) tablet,delayed release fluoxetine 10 mg capsule 30 mg PO DAILY 12/25/17 08/13/22 History lisinopril 20 mg tablet 20 mg PO DAILY 12/25/17 08/13/22 History loratadine 10 mg tablet 10 mg PO DAILY PRN Allergy Symptoms 12/25/17 08/13/22 History mirtazapine 30 mg tablet 30 mg PO BEDTIME 12/25/17 08/13/22 History omeprazole 20 mg capsule,delayed 20 mg PO DAILY 05/15/21 08/13/22 History release levetiracetam 500 mg tablet 1,000 mg PO BID #0 tabs 05/18/21 08/13/22 Rx Allergies Allergy/AdvReac Type Severity Reaction Status Date / Time vancomycin [VANCOMYCIN] Allergy Unknown VANCO Verified 12/28/22 13:34 ALLERGY ON SNF FACE SHEET Exam Vital Signs (past 8 hours): - 12/28/22 13:26 12/28/22 13:19 12/28/22 13:20 Temperature 97.9 F Pulse Rate 120 H 124 H Respiratory Rate 28 H 22 Blood Pressure 128/102 H 128/102 H Pulse Oximetry 100 Oxygen Delivery Method Room Air 12/28/22 13:30 12/28/22 14:01 12/28/22 14:04 Temperature Pulse Rate 118 H 114 H 114 H Respiratory Rate 24 22 24 Blood Pressure Pulse Oximetry Oxygen Delivery Method 12/28/22 14:04 12/28/22 14:15 12/28/22 14:15 Temperature Pulse Rate 111 H Respiratory Rate 25 H Blood Pressure 152/76 H 177/86 H Pulse Oximetry 94 Oxygen Delivery Method Oxygen Delivery Method Room Air Narrative Exam Narrative: Abdomen tender, distended and peritoneal Midline surgical scar and old gastrostomy scar Objective Labs 12/28/22 13:50 12/28/22 13:50 Labs: Laboratory Results - last 24 hr 12/28/22 12/28/22 12/28/22 13:50 13:50 13:50 WBC 25.0 H RBC 4.68 Hgb 14.2 Hct 42.8 MCV 91.5 MCH 30.4 MCHC 33.2 RDW 15.2 H Plt Count 197 Neut % (Auto) Not Reportable Lymph % (Auto) Not Reportable [place] % (Auto) Not Reportable Eos % (Auto) Not Reportable Baso % (Auto) Not Reportable Lymph # (Auto) Not Reportable [place] # (Auto) Not Reportable Baso # (Auto) Not Reportable Total Counted 100 Seg Neutrophils % 67.0 Band Neutrophils % 22.0 H Lymphocytes % (Manual) 4.0 L Monocytes % (Manual) 5.0 Eosinophils % (Manual) 2.0 Neutrophils # (Manual) 81267 H Toxic Granulation Present H Toxic Vacuolation 1 RBC Morphology See below Anisocytosis 1+ H PT 13.3 H INR 1.2 APTT Sodium 146 H Potassium 4.1 Chloride 103 Carbon Dioxide 17 L BUN 40 H Creatinine 2.26 H Estimated GFR 30 L BUN/Creatinine Ratio 17.7 Glucose 157 H Lactate Calcium 10.9 H Total Bilirubin 0.5 AST 43 ALT 51 H Alkaline Phosphatase 128 H Total Creatine Kinase 65 Troponin I < 0.012 Total Protein 9.6 H Albumin 5.2 H Globulin 4.4 H Albumin/Globulin Ratio 1.2 Procalcitonin 12.5 H 12/28/22 12/28/22 13:50 13:50 WBC RBC Hgb Hct MCV MCH MCHC RDW Plt Count Neut % (Auto) Lymph % (Auto) [place] % (Auto) Eos % (Auto) Baso % (Auto) Lymph # (Auto) [place] # (Auto) Baso # (Auto) Total Counted Seg Neutrophils % Band Neutrophils % Lymphocytes % (Manual) Monocytes % (Manual) Eosinophils % (Manual) Neutrophils # (Manual) Toxic Granulation Toxic Vacuolation RBC Morphology Anisocytosis PT INR APTT 32 Sodium Potassium Chloride Carbon Dioxide BUN Creatinine Estimated GFR BUN/Creatinine Ratio Glucose Lactate 8.3 H* Calcium Total Bilirubin AST ALT Alkaline Phosphatase Total Creatine Kinase Troponin I Total Protein Albumin Globulin Albumin/Globulin Ratio Procalcitonin [facility] Medical History (Updated 12/28/22 @ 14:59 by Kenny Hernandez MD) CVA, old, alterations of sensations History of small bowel obstruction Hypertension Iron deficiency anemia Seizure disorder Surgical History History of appendectomy History of bowel resection History of colonoscopy with polypectomy Family History Father Cancer Social History household members: spouse and children Tobacco & Substance Use Smoking Status: Former smoker alcohol intake: never Assessment & Plan Assessment and plan (1) Complete small bowel obstruction: Status: Acute Plan I explained that he has a closed loop small-bowel obstruction and likely has ischemia involving a segment of small bowel. I explained that he will need an emergency surgery to address the bowel obstruction and this would likely involve a bowel resection if there is evidence of bowel ischemia at the time of surgery. I explained that my partner Dr. Mcdonnell would likely be primary surgeon. He would like to proceed. We will have an NG-tube placed and he is receiving Zosyn now.
[2022-12-28 14:59] LABS: COVID-19 CEPHEID 4-PLEX PCR Negative (Negative)
--- NOTE | 2022-12-28 15:44 | SUR.HOLD ---
Patient responding to all commands and GCS 15; previous history of CVA in October but no deficits noted at this time. at bedside answering appropriate questions. NG tube draining to right nare to low intermittent suction; 800 mls of dark output noted from ER prior to transfer to Surgical Services.
[2022-12-28 15:59] LABS: Reflexed Lactate in 2 Hours Y
[2022-12-28] MEDS: SODIUM CHLORIDE 0.9% 1,000 ML 42 ML IV (16:18)
--- NOTE | 2022-12-28 16:23 | SUR.OPER ---
Supine on padded OR bed, head on pillow, right arm secured on padded arm boards at <90 degrees abduction, Left arm padded and tucked at side, legs uncrossed, safety belt at thigh, tape over blanket over lower legs. Gel pad under bilateral heels.
--- NOTE | 2022-12-28 18:29 | P.OP_ITS ---
Operative Date/Time/Diagnoses Date of procedure: 12/28/22 Time of procedure: 18:33 Pre-op diagnosis: Small-bowel obstruction Post-op diagnosis: same Procedure & Clinicians Procedure: Adhesiolysis greater than 90 minutes Exploratory laparotomy. Small-bowel resection Ileocecectomy Same procedure as scheduled: Yes Indications: 77-year-old man with a history of multiple prior abdominal surgeries who presented to the [facility] Emergency Department room with severe abdominal pain. CT abdomen pelvis demonstrates dilated loops of small bowel, laboratory values significant for white blood cell count [id number], lactic acid of 8. Surgeon: Ministerio Mcdonnell Patient Sitter: Kenny Hernandez Anesthesia Type: General Operative Notes Findings: Necrotic small bowel. Numerous adhesions Specimen(s): other (Small-bowel resection) Estimated Blood Loss (mL): 100 Procedure in detail: Patient was taken to the operating room placed supine on the table. Bilateral lower extremity compression devices were applied. General anesthesia was induced and he was intubated with an endotracheal tube. Was receiving Zosyn facundo or skin incision. He was prepped and draped in sterile fashion a [place] catheter was sterilely placed time-out performed. We began with a midline incision. The subcutaneous tissue was carefully divided the fascia was elevated and sharply incised. There were dense intra-abdominal adhesions and a extensive adhesional lysis was performed using sharp dissection. Ultimately the entirety of the smal l bowel was eviscerated. Inspection of the bowel demonstrated a segment of elidia necrosis of approximately 30-40 cm in length at the terminal ileum and an area of small bowel that was adherent to the posterior sheath of the midline which contained extremely attenuated wall with 2 enterotomies within it. The enterotomies were controlled using interrupted silk suture to be addressed later. We performed an ileocecectomy. The right colon was mobilized from its lateral attachments along the white line of Toldt. A window within the mesentery of the cecum was made in the colon was divided using the ELI stapler. A window within the terminal ileum mesentery was made and the small bowel was divided. The necrotic segment was then removed, its mesentery taken with LigaSure. We performed a [id number] functional end to end anastomosis. The corner of the small bowel and the colon were resected and the stapler was used to create a common channel. The anastomosis was widely patent and hemostatic. The common opening was then closed using another of the staple loads. This common opening was then oversewn with imbricating interrupted silk suture. Anastomosis was widely patent and well perfused. We then turned our attention to the mass of adhesed small bowel that had been adherent to the midline fascia. There were 2 full-thickness enterotomies within it result of mobilizing it off of the abdominal wall. The bowel wall here was extremely attenuated and we decided to resect this area. A window within the mesentery was made and the small bowel was divided on either side. In total we probably removed approximally 20 cm of additional small bowel. A [id number] functional end and small-bowel anastomosis was formed. Enterotomy in each limb was made and then a stapler was used to create a common channel after placement of a crotch stitch. The anastomosis was widely patent and hemostatic. We then closed the common opening using a additional load of staple. This final staple line was then oversewn with imbricating interrupted silk suture. We tested the anastomosis it was widely patent and well perfused without undue tension. This point we returned all the small bowel to the abdomen the abdomen was irrigated with several L of sterile saline until it returned clear. The fascia was then closed using a running looped 1. PDS suture. The skin was reapproximated using reyna. He was extubated and transferred to intensive care unit in critical but stable condition. The assistance of Dr. Hernandez was critical to the success of this operation for his assistance with exposure lysis of adhesions and formation of the anastomosis Complications: none Post-operative Condition: stable Disposition: ICU
--- NOTE | 2022-12-28 18:51 | P.HP_ITS ---
History of Present Illness History of Present Illness Chief complaint: weakness Narrative: Joseph Milan is a 77yo M with PMH of recurrent SBO, HTN, CVA, seizure disorder, and GERD who presented with abd pain and found to have SBO with ischemic bowel. Per developed acute abd pain yesterday with NV. Taken emergently to OR and had resection of small bowel plus part of cecum. Lactate 8.3 in ED. Hemodynamically stable. Procal 12.5. Admitted to ICU for post-op care. [facility] Medical History (Updated 12/28/22 @ 15:50 by Meghan Urbina MD) CVA, old, alterations of sensations History of small bowel obstruction Hypertension Iron deficiency anemia Seizure disorder Surgical History History of appendectomy History of bowel resection History of colonoscopy with polypectomy Family History Father Cancer Social History household members: spouse and children Smoking Status: Former smoker alcohol intake: never Meds Home Medications and Allergies Home Medications Medication Instructions Recorded Confirmed Type Disabled Parking Permit 1 ea miscellaneous DIRECTED 12/25/17 08/15/22 History felodipine 10 mg tablet,extended 10 mg PO DAILY 12/25/17 08/13/22 History release 24 hr ferrous sulfate 324 mg (65 mg 1 tab PO DAILY 12/25/17 08/13/22 History iron) tablet,delayed release fluoxetine 10 mg capsule 30 mg PO DAILY 12/25/17 08/13/22 History lisinopril 20 mg tablet 20 mg PO DAILY 12/25/17 08/13/22 History loratadine 10 mg tablet 10 mg PO DAILY PRN Allergy Symptoms 12/25/17 08/13/22 History mirtazapine 30 mg tablet 30 mg PO BEDTIME 12/25/17 08/13/22 History omeprazole 20 mg capsule,delayed 20 mg PO DAILY 05/15/21 08/13/22 History release levetiracetam 500 mg tablet 1,000 mg PO BID #0 tabs 05/18/21 08/13/22 Rx Allergies Allergy/AdvReac Type Severity Reaction Status Date / Time vancomycin [VANCOMYCIN] Allergy Unknown VANCO Verified 12/28/22 13:34 ALLERGY ON SNF FACE SHEET Review of Systems Review of Systems Narrative: All other systems reviewed with the patient and are negative unless otherwise stated. Exam Vital Signs (past 8 hours): - 12/28/22 13:26 12/28/22 13:19 12/28/22 13:20 Temperature 97.9 F Pulse Rate 120 H 124 H Respiratory Rate 28 H 22 Blood Pressure 128/102 H 128/102 H Pulse Oximetry 100 Oxygen Delivery Method Room Air 12/28/22 13:30 12/28/22 14:01 12/28/22 14:04 Temperature Pulse Rate 118 H 114 H 114 H Respiratory Rate 24 22 24 Blood Pressure Pulse Oximetry Oxygen Delivery Method 12/28/22 14:04 12/28/22 14:15 12/28/22 14:15 Temperature Pulse Rate 111 H Respiratory Rate 25 H Blood Pressure 152/76 H 177/86 H Pulse Oximetry 94 Oxygen Delivery Method 12/28/22 15:35 Temperature 99.4 F Pulse Rate 117 H Respiratory Rate 24 Blood Pressure 128/90 Pulse Oximetry 94 Oxygen Delivery Method Room Air Oxygen Delivery Method Room Air Narrative Exam Narrative: GEN: mod distress HEENT: moist mucous membranes, PERRL NECK: trachea midline, no JVD CV: regular rate and rhythm, no murmurs PULM: clear bilaterally ABD: firm, tender, distended EXT: warm and well perfused with no edema NEURO: awake, alert, oriented, no focal deficits Objective Labs 12/28/22 13:50 12/28/22 13:50 Labs: Laboratory Results - last 24 hr 12/28/22 12/28/22 12/28/22 13:33 13:50 13:50 WBC 25.0 H RBC 4.68 Hgb 14.2 Hct 42.8 MCV 91.5 MCH 30.4 MCHC 33.2 RDW 15.2 H Plt Count 197 Neut % (Auto) Not Reportable Lymph % (Auto) Not Reportable [place] % (Auto) Not Reportable Eos % (Auto) Not Reportable Baso % (Auto) Not Reportable Lymph # (Auto) Not Reportable [place] # (Auto) Not Reportable Baso # (Auto) Not Reportable Total Counted 100 Seg Neutrophils % 67.0 Band Neutrophils % 22.0 H Lymphocytes % (Manual) 4.0 L Monocytes % (Manual) 5.0 Eosinophils % (Manual) 2.0 Neutrophils # (Manual) 89764 H Toxic Granulation Present H Toxic Vacuolation 1 RBC Morphology See below Anisocytosis 1+ H PT 13.3 H INR 1.2 APTT Sodium Potassium Chloride Carbon Dioxide BUN Creatinine Estimated GFR BUN/Creatinine Ratio Glucose Lactate Calcium Total Bilirubin AST ALT Alkaline Phosphatase Total Creatine Kinase Troponin I Total Protein Albumin Globulin Albumin/Globulin Ratio Procalcitonin SARS-CoV-2 (PCR) Negative Influenza A (RT-PCR) Flu a negative Influenza B (RT-PCR) Flu b negative RSV (PCR) Negative 12/28/22 12/28/22 12/28/22 13:50 13:50 13:50 WBC RBC Hgb Hct MCV MCH MCHC RDW Plt Count Neut % (Auto) Lymph % (Auto) [place] % (Auto) Eos % (Auto) Baso % (Auto) Lymph # (Auto) [place] # (Auto) Baso # (Auto) Total Counted Seg Neutrophils % Band Neutrophils % Lymphocytes % (Manual) Monocytes % (Manual) Eosinophils % (Manual) Neutrophils # (Manual) Toxic Granulation Toxic Vacuolation RBC Morphology Anisocytosis PT INR APTT 32 Sodium 146 H Potassium 4.1 Chloride 103 Carbon Dioxide 17 L BUN 40 H Creatinine 2.26 H Estimated GFR 30 L BUN/Creatinine Ratio 17.7 Glucose 157 H Lactate 8.3 H* Calcium 10.9 H Total Bilirubin 0.5 AST 43 ALT 51 H Alkaline Phosphatase 128 H Total Creatine Kinase 65 Troponin I < 0.012 Total Protein 9.6 H Albumin 5.2 H Globulin 4.4 H Albumin/Globulin Ratio 1.2 Procalcitonin 12.5 H SARS-CoV-2 (PCR) Influenza A (RT-PCR) Influenza B (RT-PCR) RSV (PCR) Assessment & Plan Assessment & Plan narrative: # sepsis secondary to acute SBO with ischemic bowel -presented with SIRS: WBC 25, lactate 8.3, HR 124, RR 22, procal 12.5 -s/p emergent ex-lap in OR with resection of small bowel and part of cecum -continue zosyn -gen surg managing post-op care -f/u blood cultures -trend procal # lactic acidosis -8.3 on admission, likely due to ischemic gut -trend to normal -IVF # FABRIZIO -Cr 2.26, baseline 1 -IVF -monitor and avoid nephrotoxic agents # HTN -holding home lisinopril and amlodipine due to possible sepsis # history of CVA with left sided weakness -holding Remeron, fluoxetine for now # seizure disorder -continue keppra but IV # GERD -PPI CODE: Full Proxy: Fariba Kayli, spouse DVT/VTE prophylaxis:? SCDs Dispo: ICU
[2022-12-28] MEDS: LACTATED RINGERS 1,000 ML 125 ML IV (19:07)
--- NOTE | 2022-12-28 20:07 | P.TELICUCN_ITS ---
History of Present Illness Consult details IF CAMERA ACTIVATED, patient seen via real-time interactive audiovisual communication: Camera activated Chief complaint: weakness Consent obtained for tele-end trimmer care: Yes Patient Location: ICU Provider location (State): [place] Other participants/roles: Mauro bedside nursing staff Narrative: 77 year old male with PMHx SBO, HTN, CVA, seizure disorder, and GERD? presented to ED with abdominal pain found to have small bowel obstruction with possible ischemia admitted to the OR for ex-lap for small bowel resection, lysis of adhesions ostomy creation. [facility] Medical History (Updated 12/28/22 @ 15:50 by Meghan Urbina MD) CVA, old, alterations of sensations History of small bowel obstruction Hypertension Iron deficiency anemia Seizure disorder Surgical History History of appendectomy History of bowel resection History of colonoscopy with polypectomy Family History Father Cancer Social History household members: spouse and children Smoking Status: Former smoker alcohol intake: never Current Medications Current Medications Medications: Home Medications Disabled Parking Permit 1 ea miscellaneous DIRECTED 12/25/17 [History Confirmed 08/15/22] felodipine 10 mg tablet,extended release 24 hr 10 mg PO DAILY 12/25/17 [History Confirmed 08/13/22] ferrous sulfate 324 mg (65 mg iron) tablet,delayed release 1 tab PO DAILY 12/25/17 [History Confirmed 08/13/22] fluoxetine 10 mg capsule 30 mg PO DAILY 12/25/17 [History Confirmed 08/13/22] lisinopril 20 mg tablet 20 mg PO DAILY 12/25/17 [History Confirmed 08/13/22] loratadine 10 mg tablet 10 mg PO DAILY PRN Allergy Symptoms 12/25/17 [History Confirmed 08/13/22] mirtazapine 30 mg tablet 30 mg PO BEDTIME 12/25/17 [History Confirmed 08/13/22] omeprazole 20 mg capsule,delayed release 20 mg PO DAILY 05/15/21 [History Confirmed 08/13/22] levetiracetam 500 mg tablet 1,000 mg PO BID #0 tabs 05/18/21 [Rx Confirmed 08/13/22] Visit Medications (administered) Generic Name Dose Route Start Last Admin Trade Name Jailyn PRN Reason Stop Dose Admin Lactated Ringer's 1,000 mls @ 125 mls/hr 12/28/22 15:45 12/28/22 19:07 Lactated Ringers IV 12/29/22 03:44 125 mls/hr CONT DOROTHEA Administration Exam Vital Signs (past 8 hours): - 12/28/22 13:26 12/28/22 13:19 12/28/22 13:20 Temperature 97.9 F Pulse Rate 120 H 124 H Respiratory Rate 28 H 22 Blood Pressure 128/102 H 128/102 H Pulse Oximetry 100 Oxygen Delivery Method Room Air Oxygen Flow Rate 12/28/22 13:30 12/28/22 14:01 12/28/22 14:04 Temperature Pulse Rate 118 H 114 H 114 H Respiratory Rate 24 22 24 Blood Pressure Pulse Oximetry Oxygen Delivery Method Oxygen Flow Rate 12/28/22 14:04 12/28/22 14:15 12/28/22 14:15 Temperature Pulse Rate 111 H Respiratory Rate 25 H Blood Pressure 152/76 H 177/86 H Pulse Oximetry 94 Oxygen Delivery Method Oxygen Flow Rate 12/28/22 15:35 12/28/22 18:27 12/28/22 18:32 Temperature 99.4 F 98 F Pulse Rate 117 H 102 H 101 H Respiratory Rate 24 21 21 Blood Pressure 128/90 152/62 H 145/71 H Pulse Oximetry 94 100 99 Oxygen Delivery Method Room Air Simple Mask Simple Mask Oxygen Flow Rate 6 6 12/28/22 18:37 12/28/22 18:58 12/28/22 19:09 Temperature Pulse Rate 101 H 99 H 97 H Respiratory Rate 20 22 21 Blood Pressure 159/69 H 150/75 H 151/73 H Pulse Oximetry 99 98 99 Oxygen Delivery Method Simple Mask Simple Mask Simple Mask Oxygen Flow Rate 6 4 Oxygen Delivery Method Simple Mask Oxygen Flow Rate 4 Objective Labs 12/28/22 13:50 12/28/22 13:50 Labs: Laboratory Results - last 24 hr 12/28/22 12/28/22 12/28/22 13:33 13:50 13:50 WBC 25.0 H RBC 4.68 Hgb 14.2 Hct 42.8 MCV 91.5 MCH 30.4 MCHC 33.2 RDW 15.2 H Plt Count 197 Neut % (Auto) Not Reportable Lymph % (Auto) Not Reportable [place] % (Auto) Not Reportable Eos % (Auto) Not Reportable Baso % (Auto) Not Reportable Lymph # (Auto) Not Reportable [place] # (Auto) Not Reportable Baso # (Auto) Not Reportable Total Counted 100 Seg Neutrophils % 67.0 Band Neutrophils % 22.0 H Lymphocytes % (Manual) 4.0 L Monocytes % (Manual) 5.0 Eosinophils % (Manual) 2.0 Neutrophils # (Manual) 76940 H Toxic Granulation Present H Toxic Vacuolation 1 RBC Morphology See below Anisocytosis 1+ H PT 13.3 H INR 1.2 APTT Sodium Potassium Chloride Carbon Dioxide BUN Creatinine Estimated GFR BUN/Creatinine Ratio Glucose Lactate Calcium Total Bilirubin AST ALT Alkaline Phosphatase Total Creatine Kinase Troponin I Total Protein Albumin Globulin Albumin/Globulin Ratio Procalcitonin SARS-CoV-2 (PCR) Negative Influenza A (RT-PCR) Flu a negative Influenza B (RT-PCR) Flu b negative RSV (PCR) Negative 12/28/22 12/28/22 12/28/22 13:50 13:50 13:50 WBC RBC Hgb Hct MCV MCH MCHC RDW Plt Count Neut % (Auto) Lymph % (Auto) [place] % (Auto) Eos % (Auto) Baso % (Auto) Lymph # (Auto) [place] # (Auto) Baso # (Auto) Total Counted Seg Neutrophils % Band Neutrophils % Lymphocytes % (Manual) Monocytes % (Manual) Eosinophils % (Manual) Neutrophils # (Manual) Toxic Granulation Toxic Vacuolation RBC Morphology Anisocytosis PT INR APTT 32 Sodium 146 H Potassium 4.1 Chloride 103 Carbon Dioxide 17 L BUN 40 H Creatinine 2.26 H Estimated GFR 30 L BUN/Creatinine Ratio 17.7 Glucose 157 H Lactate 8.3 H* Calcium 10.9 H Total Bilirubin 0.5 AST 43 ALT 51 H Alkaline Phosphatase 128 H Total Creatine Kinase 65 Troponin I < 0.012 Total Protein 9.6 H Albumin 5.2 H Globulin 4.4 H Albumin/Globulin Ratio 1.2 Procalcitonin 12.5 H SARS-CoV-2 (PCR) Influenza A (RT-PCR) Influenza B (RT-PCR) RSV (PCR) Assessment & Plan Assessment & Plan narrative: patient seen chart/labs/imaging reviewed 77 year old male with PMHx of Seizure admitted to ICU with severe sepsis acute abdomen small bowel obstruction s/p ex-lap acute renal failure currently afebrile, HD stable mental status intact ngt in place adequate urine output wbc 25 lactate 8 creat 2.5 post op labs pending suggest -neurochecks/seizure precautions -home AEDs, keppra -post op care -pain control, minimize opiod use -keep map above 65 -ivf -check labs -abx -cxs -check urine lytes -monitor ins/outs -replace lytes prn -hold home anithypertensive meds for now -gi/dvt ppx -please call eICU if condition changes
[2022-12-28 20:19] LABS: Fractionated Inspired Oxygen 36; HCO3 ABG 17 mmol/L (23-27); Oxygen Saturation ABG 94 % (95-100); PCO2 ABG 36.3 mmHg (35-45); PO2 ABG 80 mmHg (80-100); TCO2 ABG 18 mmol/L (23-27)
[2022-12-28 20:20] LABS: pH ABG 7.28 (7.35-7.45)
[2022-12-28] MEDS: levETIRAcetam 1,000 MG in SODIUM CHLORIDE 0.9% 100 ML 440 MG IV (20:21)
[2022-12-28 20:29] LABS: Hematocrit 34.2 % (41-53); Hemoglobin 11.4 g/dL (13.5-17.5); Mean Corpuscular HGB Conc 33.3 % (30-36); Mean Corpuscular Hemoglobin 30.8 PG (26-34); Mean Corpuscular Volume 92.4 fL (80-100); Platelet Count 149 X10^3/uL (150-400); Red Cell Distribution Width 15.4 % (11.6-14.8); White Blood Cell Count 7.6 X10^3/uL (4.5-11.0)
[2022-12-28 20:30] LABS: Add Manual Diff / Slide Review YES
[2022-12-28 20:31] LABS: Lactate 2HR (Lactic Acid Rflx) 8.1 mmol/L (0.7-2.1)
[2022-12-28 20:35] LABS: BUN Creatinine Ratio 21.8 (6-22); Blood Urea Nitrogen 38 mg/dL (9-20); Calcium 8.3 mg/dL (8.4-10.2); Carbon Dioxide 19 mmol/L (22-32); Chloride 111 mmol/L (98-107); Estimated Glomerular Filt Rate 40 mL/min (>60); Glucose 93 mg/dL (80-110); HEMOLYSIS < 15 (0-50); Magnesium 1.7 mg/dL (1.6-2.3); Potassium 4.7 mmol/L (3.4-5.1); Sodium 144 mmol/L (137-145)
[2022-12-28] MEDS: SODIUM CHLORIDE 0.9% 1,000 ML 1000 ML IV (20:42)
[2022-12-28] MEDS: PIPERACILLIN/TAZO 3.375 GM in SODIUM CHLORIDE 0.9% 100 ML IV (20:57)
[2022-12-28 21:12] LABS: Neutrophils Absolute Manual 6536 /uL (3000-5900); RBC Morphology Normal Morphology; Total Cells Counted 100; Toxic Granulation Present
[2022-12-28] MEDS: SODIUM CHLORIDE 0.9% 1,000 ML 125 ML IV (21:48)
[2022-12-28 22:21] LABS: MRSA (Nasal) PCR Not Detected (Not Detect)
[2022-12-28 22:22] LABS: Lactate (Lactic Acid) 5.1 mmol/L (0.7-2.1)
[2022-12-28 22:33] LABS: Appearance Urine UA CLEAR; Bilirubin Urine UA NEGATIVE (NEGATIVE); Color Urine UA YELLOW; Glucose Urine UA NEGATIVE (Negative); Ketones Urine UA NEGATIVE (NEGATIVE); Leukocyte Esterase Urine UA NEGATIVE (NEGATIVE); Nitrite Urine UA NEGATIVE (Negative); Occult Blood Urine UA 1+ (Negative); Protein Urine UA NEGATIVE (Negative); Urobilinogen Urine UA 0.2 E.U./dL (0.2)
[2022-12-28 22:39] LABS: Bacteria Urine Occasional (0-1); Squamous Epithelial Cell Urine 0-1 /HPF (0-5/HPF); WBC Urine None Seen (0-5/HPF)
[2022-12-28 22:40] LABS: Culture Indicated Urine Cult Not Indicated; Mucus Urine 1+ (Negative); RBC Urine 1-5/HPF (0-5/HPF)
[2022-12-29] VITALS (38 sets, daily range): BP systolic 127–174; BP diastolic 65–93; PULSE 83–105; RESP 8–16; TEMP 36.6–36.9; O2SAT 85–100
[2022-12-29 00:04] LABS: Reflexed Lactate in 2 Hours Y
[2022-12-29 01:16] LABS: Lactate 2HR (Lactic Acid Rflx) 3.4 mmol/L (0.7-2.1)
[2022-12-29] MEDS: PIPERACILLIN/TAZO 3.375 GM in SODIUM CHLORIDE 0.9% 100 ML IV ×3 (04:23→20:05)
[2022-12-29 04:48] LABS: Alanine Aminotransferase 27 IU/L (<50); Albumin 3.1 g/dL (3.5-5.0); Albumin Globulin Ratio 1.1 (1.0-2.8); Alkaline Phosphatase 69 U/L (38-126); Aspartate Aminotransferase 39 IU/L (17-59); BUN Creatinine Ratio 20.9 (6-22); Bilirubin Total 0.3 mg/dL (0.2-1.3); Blood Urea Nitrogen 33 mg/dL (9-20); Calcium 8.3 mg/dL (8.4-10.2); Carbon Dioxide 24 mmol/L (22-32); Chloride 115 mmol/L (98-107); Estimated Glomerular Filt Rate 45 mL/min (>60); Globulin 2.8 g/dL (1.7-4.1); Glucose 96 mg/dL (80-110); HEMOLYSIS < 15 (0-50); Potassium 4.5 mmol/L (3.4-5.1); Sodium 145 mmol/L (137-145); Total Protein 5.9 g/dL (6.3-8.2)
[2022-12-29 04:55] LABS: Add Manual Diff / Slide Review YES; Hematocrit 32.1 % (41-53); Hemoglobin 10.8 g/dL (13.5-17.5); Mean Corpuscular HGB Conc 33.5 % (30-36); Mean Corpuscular Hemoglobin 30.3 PG (26-34); Mean Corpuscular Volume 90.4 fL (80-100); Platelet Count 138 X10^3/uL (150-400); Red Blood Cell Count 3.55 X10^6/uL (4.5-5.9)
[2022-12-29 05:05] LABS: Procalcitonin 42.7 ng/mL (<0.5)
[2022-12-29 05:28] LABS: Neutrophils Absolute Manual 12040 /uL (3000-5900); Total Cells Counted 100
[2022-12-29 05:29] LABS: RBC Morphology Normal Morphology
[2022-12-29 05:30] LABS: Toxic Granulation Present
[2022-12-29] MEDS: SODIUM CHLORIDE 0.9% 1,000 ML 125 ML IV ×3 (06:40→23:40)
--- NOTE | 2022-12-29 06:44 | PC.NURSE ---
Pt arrived to floor ~1950. Pt A&OX1, lungs clear on 4L simple mask. Switched to 3L NC immediately, satting 100%. Now on room air, satting 97%. Bowel tones appreciated, although hypoactive. NG to low intermittent suction, output greenish. Midline incision with aquacel dressing, otherwise skin intact. Lactate 8.1 upon arrival to floor. Product Support Technician called and ordered 1L NS bolus. Lactate came down to 5.4 shortly after. Current lactate 3.4. See assessments and MAR for detailed documentation.
[2022-12-29] MEDS: PANTOPRAZOLE 40 MG VIAL IV (09:32)
[2022-12-29] MEDS: levETIRAcetam 1,000 MG in SODIUM CHLORIDE 0.9% 100 ML 440 MG IV ×2 (09:32→20:05)
[2022-12-29] MEDS: ENOXAPARIN 30 MG/0.3 ML SYRINGE SUBCUT (09:34)
--- NOTE | 2022-12-29 09:44 | P.TELICUPN_ITS ---
Subjective Subjective IF CAMERA ACTIVATED, patient seen via real-time interactive audiovisual communication: Camera activated Consent obtained for tele-rehabilitation therapy technician care: Yes Patient Location: ICU Provider location (State): [place] Other participants/roles: Dr. Wade bedside nursing team Interval history: no acute events post op no new complaints Current Medications Current Medications Medications: Home Medications Disabled Parking Permit 1 ea miscellaneous DIRECTED 12/25/17 [History Confirmed 08/15/22] felodipine 10 mg tablet,extended release 24 hr 10 mg PO DAILY 12/25/17 [History Confirmed 08/13/22] ferrous sulfate 324 mg (65 mg iron) tablet,delayed release 1 tab PO DAILY 12/25/17 [History Confirmed 08/13/22] fluoxetine 10 mg capsule 30 mg PO DAILY 12/25/17 [History Confirmed 08/13/22] lisinopril 20 mg tablet 20 mg PO DAILY 12/25/17 [History Confirmed 08/13/22] loratadine 10 mg tablet 10 mg PO DAILY PRN Allergy Symptoms 12/25/17 [History Confirmed 08/13/22] mirtazapine 30 mg tablet 30 mg PO BEDTIME 12/25/17 [History Confirmed 08/13/22] omeprazole 20 mg capsule,delayed release 20 mg PO DAILY 05/15/21 [History Confirmed 08/13/22] levetiracetam 500 mg tablet 1,000 mg PO BID #0 tabs 05/18/21 [Rx Confirmed 08/13/22] Visit Medications (administered) Generic Name Dose Route Start Last Admin Trade Name Freq PRN Reason Stop Dose Admin Enoxaparin Sodium 30 mg 12/29/22 09:00 12/29/22 09:34 Enoxaparin 30 Mg/0.3 Ml Syringe SUBCUT 30 mg DAILY DOROTHEA Administration Sodium Chloride 1,000 mls @ 125 mls/hr 12/28/22 20:45 12/29/22 06:40 Normal Saline 0.9% IV 125 mls/hr CONT DOROTHEA Administration Piperacillin Sod/Tazobactam 100 mls @ 25 mls/hr 12/29/22 05:00 12/29/22 08:23 Sod 3.375 gm/ Sodium Chloride IV Infused Q8H DOROTHEA Infusion Levetiracetam 1,000 mg/ Sodium 110 mls @ 440 mls/hr 12/29/22 09:00 12/29/22 09:32 Chloride IV 440 mls/hr Q12H DOROTHEA Administration Pantoprazole Sodium 40 mg 12/28/22 15:35 12/29/22 09:32 Pantoprazole 40 Mg Vial IV 40 mg DAILY DOROTHEA Administration Objective Labs 12/29/22 04:30 12/29/22 04:30 Labs: Laboratory Results - last 24 hr 12/28/22 12/28/22 12/28/22 13:33 13:50 13:50 WBC 25.0 H RBC 4.68 Hgb 14.2 Hct 42.8 MCV 91.5 MCH 30.4 MCHC 33.2 RDW 15.2 H Plt Count 197 Neut % (Auto) Not Reportable Lymph % (Auto) Not Reportable [place] % (Auto) Not Reportable Eos % (Auto) Not Reportable Baso % (Auto) Not Reportable Lymph # (Auto) Not Reportable [place] # (Auto) Not Reportable Baso # (Auto) Not Reportable Total Counted 100 Seg Neutrophils % 67.0 Band Neutrophils % 22.0 H Lymphocytes % (Manual) 4.0 L Monocytes % (Manual) 5.0 Eosinophils % (Manual) 2.0 Neutrophils # (Manual) 86241 H Toxic Granulation Present H Toxic Vacuolation 1 RBC Morphology See below Anisocytosis 1+ H PT 13.3 H INR 1.2 APTT ABG pH ABG pCO2 ABG pO2 ABG HCO3 ABG Total CO2 ABG O2 Saturation ABG Base Excess FiO2 Sodium Potassium Chloride Carbon Dioxide BUN Creatinine Estimated GFR BUN/Creatinine Ratio Glucose Lactate Calcium Magnesium Total Bilirubin AST ALT Alkaline Phosphatase Total Creatine Kinase Troponin I Total Protein Albumin Globulin Albumin/Globulin Ratio Procalcitonin Urine Color Urine Appearance Urine pH Ur Specific [place] Urine Protein Urine Glucose (UA) Urine Ketones Urine Occult Blood Urine Nitrate Urine Bilirubin Urine Urobilinogen Ur Leukocyte Esterase Urine RBC Urine WBC Ur Squamous Epith Cells Urine Bacteria Urine Mucus Ur Culture Indicated? Nasal Screen MRSA (PCR) SARS-CoV-2 (PCR) Negative Influenza A (RT-PCR) Flu a negative Influenza B (RT-PCR) Flu b negative RSV (PCR) Negative 12/28/22 12/28/22 12/28/22 13:50 13:50 13:50 WBC RBC Hgb Hct MCV MCH MCHC RDW Plt Count Neut % (Auto) Lymph % (Auto) [place] % (Auto) Eos % (Auto) Baso % (Auto) Lymph # (Auto) [place] # (Auto) Baso # (Auto) Total Counted Seg Neutrophils % Band Neutrophils % Lymphocytes % (Manual) Monocytes % (Manual) Eosinophils % (Manual) Neutrophils # (Manual) Toxic Granulation Toxic Vacuolation RBC Morphology Anisocytosis PT INR APTT 32 ABG pH ABG pCO2 ABG pO2 ABG HCO3 ABG Total CO2 ABG O2 Saturation ABG Base Excess FiO2 Sodium 146 H Potassium 4.1 Chloride 103 Carbon Dioxide 17 L BUN 40 H Creatinine 2.26 H Estimated GFR 30 L BUN/Creatinine Ratio 17.7 Glucose 157 H Lactate 8.3 H* Calcium 10.9 H Magnesium Total Bilirubin 0.5 AST 43 ALT 51 H Alkaline Phosphatase 128 H Total Creatine Kinase 65 Troponin I < 0.012 Total Protein 9.6 H Albumin 5.2 H Globulin 4.4 H Albumin/Globulin Ratio 1.2 Procalcitonin 12.5 H Urine Color Urine Appearance Urine pH Ur Specific [place] Urine Protein Urine Glucose (UA) Urine Ketones Urine Occult Blood Urine Nitrate Urine Bilirubin Urine Urobilinogen Ur Leukocyte Esterase Urine RBC Urine WBC Ur Squamous Epith Cells Urine Bacteria Urine Mucus Ur Culture Indicated? Nasal Screen MRSA (PCR) SARS-CoV-2 (PCR) Influenza A (RT-PCR) Influenza B (RT-PCR) RSV (PCR) 12/28/22 12/28/22 12/28/22 19:52 20:00 20:01 WBC RBC Hgb Hct MCV MCH MCHC RDW Plt Count Neut % (Auto) Lymph % (Auto) [place] % (Auto) Eos % (Auto) Baso % (Auto) Lymph # (Auto) [place] # (Auto) Baso # (Auto) Total Counted Seg Neutrophils % Band Neutrophils % Lymphocytes % (Manual) Monocytes % (Manual) Eosinophils % (Manual) Neutrophils # (Manual) Toxic Granulation Toxic Vacuolation RBC Morphology Anisocytosis PT INR APTT ABG pH 7.28 L* ABG pCO2 36.3 ABG pO2 80 ABG HCO3 17 L ABG Total CO2 18 L ABG O2 Saturation 94 L ABG Base Excess -10.0 L FiO2 36 Sodium Potassium Chloride Carbon Dioxide BUN Creatinine Estimated GFR BUN/Creatinine Ratio Glucose Lactate Calcium Magnesium 1.7 Total Bilirubin AST ALT Alkaline Phosphatase Total Creatine Kinase Troponin I Total Protein Albumin Globulin Albumin/Globulin Ratio Procalcitonin Urine Color Urine Appearance Urine pH Ur Specific [place] Urine Protein Urine Glucose (UA) Urine Ketones Urine Occult Blood Urine Nitrate Urine Bilirubin Urine Urobilinogen Ur Leukocyte Esterase Urine RBC Urine WBC Ur Squamous Epith Cells Urine Bacteria Urine Mucus Ur Culture Indicated? Nasal Screen MRSA (PCR) Not detected SARS-CoV-2 (PCR) Influenza A (RT-PCR) Influenza B (RT-PCR) RSV (PCR) 12/28/22 12/28/22 12/28/22 20:01 20:01 20:01 WBC 7.6 D RBC 3.70 L Hgb 11.4 L Hct 34.2 L MCV 92.4 MCH 30.8 MCHC 33.3 RDW 15.4 H Plt Count 149 L Neut % (Auto) Not Reportable Lymph % (Auto) Not Reportable [place] % (Auto) Not Reportable Eos % (Auto) Not Reportable Baso % (Auto) Not Reportable Lymph # (Auto) Not Reportable [place] # (Auto) Not Reportable Baso # (Auto) Not Reportable Total Counted 100 Seg Neutrophils % 56.0 Band Neutrophils % 30.0 H Lymphocytes % (Manual) 9.0 L Monocytes % (Manual) 5.0 Eosinophils % (Manual) Neutrophils # (Manual) 6536 H Toxic Granulation Present H Toxic Vacuolation RBC Morphology Normal morphology Anisocytosis PT INR APTT ABG pH ABG pCO2 ABG pO2 ABG HCO3 ABG Total CO2 ABG O2 Saturation ABG Base Excess FiO2 Sodium 144 Potassium 4.7 Chloride 111 H Carbon Dioxide 19 L BUN 38 H Creatinine 1.74 H Estimated GFR 40 L BUN/Creatinine Ratio 21.8 Glucose 93 Lactate 8.1 H* Calcium 8.3 L Magnesium Total Bilirubin AST ALT Alkaline Phosphatase Total Creatine Kinase Troponin I Total Protein Albumin Globulin Albumin/Globulin Ratio Procalcitonin Urine Color Urine Appearance Urine pH Ur Specific [place] Urine Protein Urine Glucose (UA) Urine Ketones Urine Occult Blood Urine Nitrate Urine Bilirubin Urine Urobilinogen Ur Leukocyte Esterase Urine RBC Urine WBC Ur Squamous Epith Cells Urine Bacteria Urine Mucus Ur Culture Indicated? Nasal Screen MRSA (PCR) SARS-CoV-2 (PCR) Influenza A (RT-PCR) Influenza B (RT-PCR) RSV (PCR) 12/28/22 12/28/22 12/29/22 22:00 22:27 00:49 WBC RBC Hgb Hct MCV MCH MCHC RDW Plt Count Neut % (Auto) Lymph % (Auto) [place] % (Auto) Eos % (Auto) Baso % (Auto) Lymph # (Auto) [place] # (Auto) Baso # (Auto) Total Counted Seg Neutrophils % Band Neutrophils % Lymphocytes % (Manual) Monocytes % (Manual) Eosinophils % (Manual) Neutrophils # (Manual) Toxic Granulation Toxic Vacuolation RBC Morphology Anisocytosis PT INR APTT ABG pH ABG pCO2 ABG pO2 ABG HCO3 ABG Total CO2 ABG O2 Saturation ABG Base Excess FiO2 Sodium Potassium Chloride Carbon Dioxide BUN Creatinine Estimated GFR BUN/Creatinine Ratio Glucose Lactate 5.1 H* 3.4 H Calcium Magnesium Total Bilirubin AST ALT Alkaline Phosphatase Total Creatine Kinase Troponin I Total Protein Albumin Globulin Albumin/Globulin Ratio Procalcitonin Urine Color Yellow Urine Appearance Clear Urine pH 5.0 Ur Specific [place] 1.020 Urine Protein Negative Urine Glucose (UA) Negative Urine Ketones Negative Urine Occult Blood 1+ H Urine Nitrate Negative Urine Bilirubin Negative Urine Urobilinogen 0.2 Ur Leukocyte Esterase Negative Urine RBC 1-5/hpf Urine WBC None seen Ur Squamous Epith Cells 0-1 /hpf Urine Bacteria Occasional (0-1) Urine Mucus 1+ H Ur Culture Indicated? Cult not indicated Nasal Screen MRSA (PCR) SARS-CoV-2 (PCR) Influenza A (RT-PCR) Influenza B (RT-PCR) RSV (PCR) 12/29/22 12/29/22 04:30 04:30 WBC 14.0 H D RBC 3.55 L Hgb 10.8 L Hct 32.1 L MCV 90.4 MCH 30.3 MCHC 33.5 RDW 15.0 H Plt Count 138 L Neut % (Auto) Not Reportable Lymph % (Auto) Not Reportable [place] % (Auto) Not Reportable Eos % (Auto) Not Reportable Baso % (Auto) Not Reportable Lymph # (Auto) Not Reportable [place] # (Auto) Not Reportable Baso # (Auto) Not Reportable Total Counted 100 Seg Neutrophils % 55.0 Band Neutrophils % 31.0 H Lymphocytes % (Manual) 8.0 L Monocytes % (Manual) 6.0 Eosinophils % (Manual) Neutrophils # (Manual) 74605 H Toxic Granulation Present H Toxic Vacuolation RBC Morphology Normal morphology Anisocytosis PT INR APTT ABG pH ABG pCO2 ABG pO2 ABG HCO3 ABG Total CO2 ABG O2 Saturation ABG Base Excess FiO2 Sodium 145 Potassium 4.5 Chloride 115 H Carbon Dioxide 24 BUN 33 H Creatinine 1.58 H Estimated GFR 45 L BUN/Creatinine Ratio 20.9 Glucose 96 Lactate Calcium 8.3 L Magnesium Total Bilirubin 0.3 AST 39 ALT 27 Alkaline Phosphatase 69 D Total Creatine Kinase Troponin I Total Protein 5.9 L Albumin 3.1 L Globulin 2.8 Albumin/Globulin Ratio 1.1 Procalcitonin 42.7 H Urine Color Urine Appearance Urine pH Ur Specific [place] Urine Protein Urine Glucose (UA) Urine Ketones Urine Occult Blood Urine Nitrate Urine Bilirubin Urine Urobilinogen Ur Leukocyte Esterase Urine RBC Urine WBC Ur Squamous Epith Cells Urine Bacteria Urine Mucus Ur Culture Indicated? Nasal Screen MRSA (PCR) SARS-CoV-2 (PCR) Influenza A (RT-PCR) Influenza B (RT-PCR) RSV (PCR) Exam Vital Signs (past 8 hours): - 12/29/22 02:00 12/29/22 02:00 12/29/22 02:30 Temperature Pulse Rate 98 H Respiratory Rate 12 Blood Pressure 146/80 H 174/93 H Pulse Oximetry 100 12/29/22 02:30 12/29/22 03:00 12/29/22 03:00 Temperature Pulse Rate 105 H 100 H Respiratory Rate 16 13 Blood Pressure 164/77 H Pulse Oximetry 98 100 12/29/22 05:00 12/29/22 03:30 12/29/22 03:30 Temperature 98.0 F Pulse Rate 98 H Respiratory Rate 12 Blood Pressure 148/73 H Pulse Oximetry 100 12/29/22 04:00 12/29/22 04:00 12/29/22 04:30 Temperature Pulse Rate 97 H Respiratory Rate 12 Blood Pressure 151/82 H 153/85 H Pulse Oximetry 100 12/29/22 04:30 12/29/22 05:00 12/29/22 05:00 Temperature Pulse Rate 98 H 98 H Respiratory Rate 13 10 L Blood Pressure 170/84 H Pulse Oximetry 100 98 12/29/22 05:05 12/29/22 05:05 12/29/22 05:30 Temperature Pulse Rate 97 H Respiratory Rate 13 Blood Pressure 162/82 H 146/82 H Pulse Oximetry 99 12/29/22 05:30 12/29/22 06:00 12/29/22 06:00 Temperature Pulse Rate 96 H 102 H Respiratory Rate 12 14 Blood Pressure 151/78 H Pulse Oximetry 99 99 12/29/22 06:30 12/29/22 06:30 12/29/22 07:00 Temperature Pulse Rate 98 H Respiratory Rate 12 Blood Pressure 154/74 H 154/78 H Pulse Oximetry 100 12/29/22 07:00 12/29/22 07:30 12/29/22 07:30 Temperature Pulse Rate 100 H 99 H Respiratory Rate 12 13 Blood Pressure 147/75 H Pulse Oximetry 96 97 12/29/22 08:00 12/29/22 08:00 Temperature 98 F Pulse Rate 101 H Respiratory Rate 14 Blood Pressure 159/81 H Pulse Oximetry 97 Oxygen Delivery Method Nasal Cannula Oxygen Flow Rate 4 Assessment & Plan Assessment & Plan narrative: patient seen chart/labs/imaging reviewed 77 year old male with PMHx of Seizure admitted to ICU with severe sepsis acute abdomen small bowel obstruction s/p ex-lap acute renal failure currently afebrile, HD stable mental status intact ngt in place adequate urine output wbc 14 lactate 3.4 creat improving to 1.5 suggest -neurochecks/seizure precautions -home AEDs, keppra -post op care -pain control, minimize opiod use -keep map above 65 -ivf can change to maintance fluid -diet per surgery -abx/cxs -check urine lytes -monitor ins/outs, renal failure improving -replace lytes prn -oob as tolerated -IS -gi/dvt ppx -please call eICU if condition changes
[2022-12-29] MEDS: MAGNESIUM SULFATE 2 GM/50 ML PIGGYBACK IV (09:46)
[2022-12-29] MEDS: HYDROMORPHONE 0.5 MG INJ IV (09:46)
--- NOTE | 2022-12-29 15:02 | PC.NURSE ---
Placed pt on 2L oxy mask while sleeping due to desaturation to 85-87%
--- NOTE | 2022-12-29 15:34 | CM.DANOTE ---
Initial DCP Assessment Note Pt is a 77 yo male, resident of [place], arrives with severe abd pain now s/p emergent ex lap w/removal of necrotic small bowel and numerous adhesions. PMH includes recurrent SBO, HTN, CVA, seizure disorder, and GERD PCP: Gemini Nix Payer: [facility] Reviewed chart, attempted contact w/spouse Fariba today, unable to connect by phone, no visitors at bedside today. Patient is not A+O according to ALBARO Jiménez. PT order placed for assist w/dispo recommendation. According to visit notes July 2022, patient lives w/spouse and family, uses a FWW at baseline and requires assist w/higher ADLs. Patient requires monitoring r/t cognitive impairment and poor safety awareness. Hx CVA. Patient has hx at [facility] and w[facility]. CM team will plan to follow closely for assessment of need and assist w/dispo coordination. DEAN Anand Discharge Planning/Care Management CM Discharge Assessment Start: 12/29/22 15:28 Freq: Status: Active Protocol: Document 12/29/22 15:28 KARMA (Rec: 12/29/22 15:34 KARMA [id number]) Discharge Planning Assessment Assigned Telephone Switchboard Operator DEAN Aguero DPOA/Assigned Designee Name Fariba Milan, spouse Contact Information [phone] Advance Directives? Yes: Advance Directive DPOA Advance Directives on File No History Provided By Medical Record Prior Living Arrangements House Household Members spouse,children Type of transporation used prior to Relies on Others admit Independent with ADL's No Is patient alert and oriented? No Needs Assistance With Bathing,Grooming,Meal Prep, Managing Medications,Home Chores / Shopping Comment Need to confirm w/spouse Patient/Family Preference Home with Home Health Comment TBD Transportation Arrangement family Additional Comment TBD
[2022-12-29 16:51] LABS: Lactate (Lactic Acid) 2.1 mmol/L (0.7-2.1)
--- NOTE | 2022-12-29 17:54 | P.PN_ITS ---
Subjective Subjective Interval history: Patient doing well overall after ex-lap with bowel resection. NG still in place. Patient not passing much gas he says. WBC improving. LA now normal. Exam Vital Signs (past 8 hours): - 12/29/22 10:00 12/29/22 10:00 12/29/22 10:30 Temperature Pulse Rate 100 H Respiratory Rate 10 L Blood Pressure 130/69 129/71 Pulse Oximetry 93 Oxygen Delivery Method 12/29/22 10:30 12/29/22 11:00 12/29/22 11:00 Temperature Pulse Rate 100 H 97 H Respiratory Rate 10 L 9 L Blood Pressure 127/65 Pulse Oximetry 92 92 Oxygen Delivery Method 12/29/22 11:30 12/29/22 11:30 12/29/22 12:00 Temperature Pulse Rate 95 H Respiratory Rate 9 L Blood Pressure 132/67 140/86 Pulse Oximetry 92 Oxygen Delivery Method 12/29/22 12:00 12/29/22 12:30 12/29/22 12:30 Temperature Pulse Rate 93 H 94 H Respiratory Rate 9 L 9 L Blood Pressure 143/68 H Pulse Oximetry 91 93 Oxygen Delivery Method 12/29/22 13:00 12/29/22 13:00 12/29/22 13:30 Temperature Pulse Rate 92 H Respiratory Rate 9 L Blood Pressure 137/66 137/69 Pulse Oximetry 93 Oxygen Delivery Method 12/29/22 13:30 12/29/22 14:00 12/29/22 14:00 Temperature Pulse Rate 91 H 94 H Respiratory Rate 8 L 9 L Blood Pressure 143/72 H Pulse Oximetry 93 92 Oxygen Delivery Method 12/29/22 14:29 12/29/22 14:30 12/29/22 14:30 Temperature 97.8 F Pulse Rate 93 H Respiratory Rate 9 L Blood Pressure 146/73 H Pulse Oximetry 85 L Oxygen Delivery Method Room Air 12/29/22 15:00 12/29/22 15:00 12/29/22 15:30 Temperature Pulse Rate 95 H Respiratory Rate 9 L Blood Pressure 142/71 H 147/72 H Pulse Oximetry 89 L Oxygen Delivery Method 12/29/22 15:30 12/29/22 16:00 12/29/22 16:00 Temperature Pulse Rate 90 90 Respiratory Rate 8 L 9 L Blood Pressure 145/70 H Pulse Oximetry 98 99 Oxygen Delivery Method 12/29/22 16:30 12/29/22 16:30 12/29/22 17:00 Temperature Pulse Rate 87 Respiratory Rate 8 L Blood Pressure 135/71 152/72 H Pulse Oximetry 99 Oxygen Delivery Method 12/29/22 17:00 12/29/22 17:30 12/29/22 17:30 Temperature Pulse Rate 86 83 Respiratory Rate 8 L 8 L Blood Pressure 150/75 H Pulse Oximetry 100 100 Oxygen Delivery Method 12/29/22 17:49 Temperature Pulse Rate Respiratory Rate Blood Pressure Pulse Oximetry Oxygen Delivery Method Room Air Oxygen Delivery Method Room Air Oxygen Flow Rate 4 Narrative Exam Narrative: GEN: no acute distress, mild cog impairment HEENT: moist mucous membranes, PERRL NECK: trachea midline, no JVD CV: regular rate and rhythm, no murmurs PULM: clear bilaterally ABD: post-op dressing in place, tender EXT: warm and well perfused with no edema NEURO: awake, alert, oriented, no focal deficits Objective Labs 12/29/22 04:30 12/29/22 04:30 Labs: Laboratory Results - last 24 hr 12/28/22 12/28/22 12/28/22 19:52 20:00 20:01 WBC RBC Hgb Hct MCV MCH MCHC RDW Plt Count Neut % (Auto) Lymph % (Auto) [place] % (Auto) Eos % (Auto) Baso % (Auto) Lymph # (Auto) [place] # (Auto) Baso # (Auto) Total Counted Seg Neutrophils % Band Neutrophils % Lymphocytes % (Manual) Monocytes % (Manual) Neutrophils # (Manual) Toxic Granulation RBC Morphology ABG pH 7.28 L* ABG pCO2 36.3 ABG pO2 80 ABG HCO3 17 L ABG Total CO2 18 L ABG O2 Saturation 94 L ABG Base Excess -10.0 L FiO2 36 Sodium Potassium Chloride Carbon Dioxide BUN Creatinine Estimated GFR BUN/Creatinine Ratio Glucose Lactate Calcium Magnesium 1.7 Total Bilirubin AST ALT Alkaline Phosphatase Total Protein Albumin Globulin Albumin/Globulin Ratio Procalcitonin Urine Color Urine Appearance Urine pH Ur Specific [place] Urine Protein Urine Glucose (UA) Urine Ketones Urine Occult Blood Urine Nitrate Urine Bilirubin Urine Urobilinogen Ur Leukocyte Esterase Urine RBC Urine WBC Ur Squamous Epith Cells Urine Bacteria Urine Mucus Ur Culture Indicated? Nasal Screen MRSA (PCR) Not detected 12/28/22 12/28/22 12/28/22 20:01 20:01 20:01 WBC 7.6 D RBC 3.70 L Hgb 11.4 L Hct 34.2 L MCV 92.4 MCH 30.8 MCHC 33.3 RDW 15.4 H Plt Count 149 L Neut % (Auto) Not Reportable Lymph % (Auto) Not Reportable [place] % (Auto) Not Reportable Eos % (Auto) Not Reportable Baso % (Auto) Not Reportable Lymph # (Auto) Not Reportable [place] # (Auto) Not Reportable Baso # (Auto) Not Reportable Total Counted 100 Seg Neutrophils % 56.0 Band Neutrophils % 30.0 H Lymphocytes % (Manual) 9.0 L Monocytes % (Manual) 5.0 Neutrophils # (Manual) 6536 H Toxic Granulation Present H RBC Morphology Normal morphology ABG pH ABG pCO2 ABG pO2 ABG HCO3 ABG Total CO2 ABG O2 Saturation ABG Base Excess FiO2 Sodium 144 Potassium 4.7 Chloride 111 H Carbon Dioxide 19 L BUN 38 H Creatinine 1.74 H Estimated GFR 40 L BUN/Creatinine Ratio 21.8 Glucose 93 Lactate 8.1 H* Calcium 8.3 L Magnesium Total Bilirubin AST ALT Alkaline Phosphatase Total Protein Albumin Globulin Albumin/Globulin Ratio Procalcitonin Urine Color Urine Appearance Urine pH Ur Specific [place] Urine Protein Urine Glucose (UA) Urine Ketones Urine Occult Blood Urine Nitrate Urine Bilirubin Urine Urobilinogen Ur Leukocyte Esterase Urine RBC Urine WBC Ur Squamous Epith Cells Urine Bacteria Urine Mucus Ur Culture Indicated? Nasal Screen MRSA (PCR) 12/28/22 12/28/22 12/29/22 22:00 22:27 00:49 WBC RBC Hgb Hct MCV MCH MCHC RDW Plt Count Neut % (Auto) Lymph % (Auto) [place] % (Auto) Eos % (Auto) Baso % (Auto) Lymph # (Auto) [place] # (Auto) Baso # (Auto) Total Counted Seg Neutrophils % Band Neutrophils % Lymphocytes % (Manual) Monocytes % (Manual) Neutrophils # (Manual) Toxic Granulation RBC Morphology ABG pH ABG pCO2 ABG pO2 ABG HCO3 ABG Total CO2 ABG O2 Saturation ABG Base Excess FiO2 Sodium Potassium Chloride Carbon Dioxide BUN Creatinine Estimated GFR BUN/Creatinine Ratio Glucose Lactate 5.1 H* 3.4 H Calcium Magnesium Total Bilirubin AST ALT Alkaline Phosphatase Total Protein Albumin Globulin Albumin/Globulin Ratio Procalcitonin Urine Color Yellow Urine Appearance Clear Urine pH 5.0 Ur Specific [place] 1.020 Urine Protein Negative Urine Glucose (UA) Negative Urine Ketones Negative Urine Occult Blood 1+ H Urine Nitrate Negative Urine Bilirubin Negative Urine Urobilinogen 0.2 Ur Leukocyte Esterase Negative Urine RBC 1-5/hpf Urine WBC None seen Ur Squamous Epith Cells 0-1 /hpf Urine Bacteria Occasional (0-1) Urine Mucus 1+ H Ur Culture Indicated? Cult not indicated Nasal Screen MRSA (PCR) 12/29/22 12/29/22 12/29/22 04:30 04:30 16:13 WBC 14.0 H D RBC 3.55 L Hgb 10.8 L Hct 32.1 L MCV 90.4 MCH 30.3 MCHC 33.5 RDW 15.0 H Plt Count 138 L Neut % (Auto) Not Reportable Lymph % (Auto) Not Reportable [place] % (Auto) Not Reportable Eos % (Auto) Not Reportable Baso % (Auto) Not Reportable Lymph # (Auto) Not Reportable [place] # (Auto) Not Reportable Baso # (Auto) Not Reportable Total Counted 100 Seg Neutrophils % 55.0 Band Neutrophils % 31.0 H Lymphocytes % (Manual) 8.0 L Monocytes % (Manual) 6.0 Neutrophils # (Manual) 34858 H Toxic Granulation Present H RBC Morphology Normal morphology ABG pH ABG pCO2 ABG pO2 ABG HCO3 ABG Total CO2 ABG O2 Saturation ABG Base Excess FiO2 Sodium 145 Potassium 4.5 Chloride 115 H Carbon Dioxide 24 BUN 33 H Creatinine 1.58 H Estimated GFR 45 L BUN/Creatinine Ratio 20.9 Glucose 96 Lactate 2.1 Calcium 8.3 L Magnesium Total Bilirubin 0.3 AST 39 ALT 27 Alkaline Phosphatase 69 D Total Protein 5.9 L Albumin 3.1 L Globulin 2.8 Albumin/Globulin Ratio 1.1 Procalcitonin 42.7 H Urine Color Urine Appearance Urine pH Ur Specific [place] Urine Protein Urine Glucose (UA) Urine Ketones Urine Occult Blood Urine Nitrate Urine Bilirubin Urine Urobilinogen Ur Leukocyte Esterase Urine RBC Urine WBC Ur Squamous Epith Cells Urine Bacteria Urine Mucus Ur Culture Indicated? Nasal Screen MRSA (PCR) [facility] Medical History (Updated 12/28/22 @ 15:50 by Meghan Urbina MD) CVA, old, alterations of sensations History of small bowel obstruction Hypertension Iron deficiency anemia Seizure disorder Surgical History History of appendectomy History of bowel resection History of colonoscopy with polypectomy Family History Father Cancer Social History household members: spouse and children Smoking Status: Former smoker alcohol intake: never Assessment & Plan Assessment & Plan narrative: # sepsis secondary to acute SBO with ischemic bowel, improving -presented with SIRS: WBC 25, lactate 8.3, HR 124, RR 22, procal 12.5 -s/p emergent ex-lap in OR with resection of 20cm small bowel and part of cecum, then reanastamosis -continue zosyn -gen surg managing post-op care -blood cultures NG -procal downtrending # lactic acidosis, resolved -8.3 on admission, likely due to ischemic gut -trend to normal -now 2.1 # FABRIZIO, improving -Cr 2.26, baseline 1 -IVF -monitor and avoid nephrotoxic agents -Cr downtrending # HTN -can resume amlodipine once NG out -holding lisinopril until FABRIZIO resolves # history of CVA with left sided weakness -holding Remeron, fluoxetine for now while NPO # seizure disorder -continue keppra but IV # GERD -PPI IV CODE: Full Proxy: Fariba Milan, spouse DVT/VTE prophylaxis:? Lovenox Dispo: Downgrade from ICU. 3 days until bowel function returns.
[2022-12-29 18:18] LABS: Reflexed Lactate in 2 Hours Y
[2022-12-29 19:09] LABS: Lactate 2HR (Lactic Acid Rflx) 1.7 mmol/L (0.7-2.1)
--- NOTE | 2022-12-29 23:32 | PC.NURSE ---
Pt pulled out NG tube. call or contact centre operator surgeon contacted. No new orders given. Stated to leave NG out for now and monitor.
[2022-12-30] VITALS: BP 146/74; PULSE 92; RESP 21; O2SAT 96
[2022-12-30 04:00] VITALS: BP 146/73; PULSE 83; RESP 14; TEMP 36.8; O2SAT 99
[2022-12-30] MEDS: PIPERACILLIN/TAZO 3.375 GM in SODIUM CHLORIDE 0.9% 100 ML IV ×3 (04:52→21:02)
[2022-12-30 05:24] LABS: Magnesium 2.5 mg/dL (1.6-2.3)
[2022-12-30 05:25] LABS: Alanine Aminotransferase 28 IU/L (<50); Albumin 2.8 g/dL (3.5-5.0); Alkaline Phosphatase 67 U/L (38-126); Aspartate Aminotransferase 50 IU/L (17-59); Bilirubin Total 0.3 mg/dL (0.2-1.3); Blood Urea Nitrogen 22 mg/dL (9-20); Calcium 8.4 mg/dL (8.4-10.2); Carbon Dioxide 23 mmol/L (22-32); Chloride 116 mmol/L (98-107); Estimated Glomerular Filt Rate > 60 mL/min (>60); Globulin 2.9 g/dL (1.7-4.1); Glucose 79 mg/dL (80-110); HEMOLYSIS < 15 (0-50); Potassium 4.1 mmol/L (3.4-5.1); Sodium 143 mmol/L (137-145); Total Protein 5.7 g/dL (6.3-8.2)
[2022-12-30 05:27] LABS: Hematocrit 26.5 % (41-53); Hemoglobin 8.9 g/dL (13.5-17.5); Mean Corpuscular HGB Conc 33.7 % (30-36); Mean Corpuscular Hemoglobin 30.5 PG (26-34); Mean Corpuscular Volume 90.6 fL (80-100); Platelet Count 114 X10^3/uL (150-400); Red Blood Cell Count 2.93 X10^6/uL (4.5-5.9); Red Cell Distribution Width 15.1 % (11.6-14.8); White Blood Cell Count 15.8 X10^3/uL (4.5-11.0)
[2022-12-30 05:32] LABS: Add Manual Diff / Slide Review YES
[2022-12-30 05:42] LABS: Procalcitonin 54.6 ng/mL (<0.5)
[2022-12-30 05:56] LABS: Neutrophils Absolute Manual 14062 /uL (3000-5900); Total Cells Counted 100
[2022-12-30 05:58] LABS: Anisocytosis 1+; Toxic Granulation Present
--- NOTE | 2022-12-30 07:26 | P.PN_ITS ---
Subjective Subjective Interval history: Patient pulled NG out overnight. Tried advancing diet but could not swallow well so now NPO and speech eval ordered. Exam Vital Signs (past 8 hours): - 12/30/22 00:00 12/30/22 04:00 Temperature 98.3 F Pulse Rate 92 H 83 Respiratory Rate 21 14 Blood Pressure 146/74 H 146/73 H Pulse Oximetry 96 99 Oxygen Delivery Method Oximask Oxygen Flow Rate 4 Narrative Exam Narrative: GEN: no acute distress, mild cog impairment HEENT: moist mucous membranes, PERRL NECK: trachea midline, no JVD CV: regular rate and rhythm, no murmurs PULM: clear bilaterally ABD: post-op dressing in place, tender EXT: warm and well perfused with no edema NEURO: awake, alert, oriented, no focal deficits Objective Labs 12/30/22 05:02 12/30/22 05:02 Labs: Laboratory Results - last 24 hr 12/29/22 12/29/22 12/30/22 16:13 18:51 05:02 WBC RBC Hgb Hct MCV MCH MCHC RDW Plt Count Neut % (Auto) Lymph % (Auto) [place] % (Auto) Eos % (Auto) Baso % (Auto) Lymph # (Auto) [place] # (Auto) Baso # (Auto) Total Counted Seg Neutrophils % Band Neutrophils % Lymphocytes % (Manual) Monocytes % (Manual) Neutrophils # (Manual) Toxic Granulation RBC Morphology Anisocytosis Sodium 143 Potassium 4.1 Chloride 116 H Carbon Dioxide 23 BUN 22 H Creatinine 1.22 Estimated GFR > 60 BUN/Creatinine Ratio 18.0 Glucose 79 L Lactate 2.1 1.7 Calcium 8.4 Magnesium Total Bilirubin 0.3 AST 50 ALT 28 Alkaline Phosphatase 67 Total Protein 5.7 L Albumin 2.8 L Globulin 2.9 Albumin/Globulin Ratio 1.0 Procalcitonin 54.6 H 12/30/22 12/30/22 05:02 05:02 WBC 15.8 H RBC 2.93 L Hgb 8.9 L Hct 26.5 L MCV 90.6 MCH 30.5 MCHC 33.7 RDW 15.1 H Plt Count 114 L Neut % (Auto) Not Reportable Lymph % (Auto) Not Reportable [place] % (Auto) Not Reportable Eos % (Auto) Not Reportable Baso % (Auto) Not Reportable Lymph # (Auto) Not Reportable [place] # (Auto) Not Reportable Baso # (Auto) Not Reportable Total Counted 100 Seg Neutrophils % 68.0 Band Neutrophils % 21.0 H Lymphocytes % (Manual) 9.0 L Monocytes % (Manual) 2.0 Neutrophils # (Manual) 80043 H Toxic Granulation Present H RBC Morphology See below Anisocytosis 1+ H Sodium Potassium Chloride Carbon Dioxide BUN Creatinine Estimated GFR BUN/Creatinine Ratio Glucose Lactate Calcium Magnesium 2.5 H Total Bilirubin AST ALT Alkaline Phosphatase Total Protein Albumin Globulin Albumin/Globulin Ratio Procalcitonin [facility] Medical History (Updated 12/28/22 @ 15:50 by Meghan Urbina MD) CVA, old, alterations of sensations History of small bowel obstruction Hypertension Iron deficiency anemia Seizure disorder Surgical History History of appendectomy History of bowel resection History of colonoscopy with polypectomy Family History Father Cancer Social History household members: spouse and children Smoking Status: Former smoker alcohol intake: never Assessment & Plan Assessment & Plan narrative: # sepsis secondary to acute SBO with acute bowel ischemia, improving -presented with SIRS: WBC 25, lactate 8.3, HR 124, RR 22, procal 12.5 -s/p emergent ex-lap in OR with resection of 20cm small bowel and part of cecum, then reanastamosis -continue zosyn -gen surg managing post-op care -blood cultures NG so far # lactic acidosis, resolved -8.3 on admission, likely due to ischemic gut -trend to normal -now 2.1 # FABRIZIO, resolved -Cr 2.26 on admission, baseline 1 -IVF -monitor and avoid nephrotoxic agents -Cr now normal # HTN -can resume amlodipine once NG out -holding lisinopril until FABRIZIO resolves # history of CVA with left sided weakness -holding Remeron, fluoxetine for now while NPO # seizure disorder -continue keppra but IV # GERD -PPI IV CODE: Full Proxy: Fariba Milan, spouse DVT/VTE prophylaxis:? Lovenox Dispo: 3 days until bowel function returns. Then SNF.
[2022-12-30 08:10] VITALS: BP 152/84; PULSE 97; RESP 15; TEMP 37.3; O2SAT 92
[2022-12-30] MEDS: SODIUM CHLORIDE 0.9% 1,000 ML 125 ML IV (08:12)
[2022-12-30] MEDS: PANTOPRAZOLE 40 MG VIAL IV (08:13)
[2022-12-30] MEDS: levETIRAcetam 1,000 MG in SODIUM CHLORIDE 0.9% 100 ML 440 MG IV ×2 (08:55→21:01)
[2022-12-30] MEDS: DEXTROSE 50 % IN WATER 25 GM/50 ML SYRINGE IV ×2 (10:27→10:57)
--- NOTE | 2022-12-30 11:00 | PT.IIE ---
Current Diagnoses Complete intestinal obstruction, unspecified as to cause (12/28/22) Surgery Performed Operation Date: 12/28/22 15:45 Actual Procedures p Exploratory Laparotomy GEN(Not Applicable) - Ministerio Mcdonnell MD Surgical History (Last Reviewed 08/14/22 @ 18:39 by Karis Giron MD) History of appendectomy History of bowel resection History of colonoscopy with polypectomy Medical History (Last Reviewed 08/14/22 @ 18:39 by Karis Giron MD) CVA, old, alterations of sensations History of small bowel obstruction Hypertension Iron deficiency anemia Seizure disorder Physical Therapy Inpatient Evaluation/Re-Eval M1 PT/OT-IP Prior Functional Status Start: 12/30/22 13:03 Freq: NEEDED Status: Active Protocol: Document 12/30/22 11:00 AB (Rec: 12/30/22 13:21 AB [id number]) Medical Review Prior Functional Status Medical History Reviewed Yes Communication pt with difficulty talking; able to answer some questions but inconsistent and with unclear speech Mobility and Gait pt is not consistent with providing PLOF and home set up info: some info obtained from EMR during previous hospitalizations pt stated that he is modified independent with all mobilities and ambulation using either a FWW or 4WW whichever is available Social History Household Members spouse,children Living Arrangements House Number of Floors (Floors) Two Floors Number of Stairs To Enter/Railing? pt stays on main level of the house Home Environment High Toilet Home Equipment Front Wheel Walker,Four Wheel Walker,Manual Wheelchair, Hospital Bed Additional Social History Comment pt lives with spouse Fariba and son who has been assisting him at home pt just do sponge bathing M2 PT-IP Current Condition Start: 12/30/22 13:03 Freq: NEEDED Status: Active Protocol: Document 12/30/22 11:00 AB (Rec: 12/30/22 13:21 AB [id number]) Physical Therapy Current Condition Current Condition Evaluation Date 12/30/22 Treatment Diagnosis SBO s/p ex-lap bowel resection ; difficulty in walking Onset Date 12/28/22 M3 PT-IP Subjective Start: 12/30/22 13:03 Freq: NEEDED Status: Active Protocol: Document 12/30/22 11:00 AB (Rec: 12/30/22 13:21 AB [id number]) Subjective Physical Therapy Visit Type Type Initial Evaluation Visit Start Time 11:00 Visit Stop Time 11:45 Total Visit Minutes 45 Number of ASBESTOS MICROSCOPIST Visits 0 Physical Therapy Visit Comments Patient Comments needs encouragement to participate Therapy Pain Assessment Pain When Pain Assessed At Rest Location Abdomen Scale Used pain scale not stated Pain Management Techniques Distraction,Modification of Treatment,Re-positioning, Timing of Activity with Medications M4 PT-IP Mobility and Gait Start: 12/30/22 13:03 Freq: NEEDED Status: Active Protocol: Document 12/30/22 11:00 AB (Rec: 12/30/22 13:21 AB [id number]) PT-Bed Mobility Assessment Rolling Type of Rolling Log Rolling Level of Assist Maximal Assistance,2 Person Assistance Supine to Sit Supine to Sit Total Assistance,2 Person Assistance,Bedrails Scooting Scooting to Edge of Bed Dependent PT-Transfer Assessment Sit to and From Stand Sit to and from Stand Maximum Assistance,2 Person Assistance,Use of Upper Extremities Equipment Transfer Assistive Device Front Wheeled Walker Orthotic/Prosthetic Devices or Brace: No Transfers Transfer Destination Chair Transfer Technique Stand Step Pivot Transfer Ability Level of Assist Maximum Assistance,2 Person Assistance,Use of Upper Extremities Comments Mobility Comments pt educated on abdominal precautions and log roll bed mobility. pt with slight confusion and unable to consistently follow directions and has difficulty with speech. pt has h/o previous CVA with L luis. increase overall extensor tone noted. pt completed log roll bed mobility max A x 2 to total A x 2 and max cues. required max A for sitting balance with LOB posterior. total A for repositioning and scooting to EOB. sitting balance after repositioning min to mod A and max cues. completed sit to stand max A x 2 and max cues. required max A for standing balance using FWW for support. pt presents with stooped posture. NAC assisted with with hygiene care and brief management. pt completed step transfer to chair using FWW max A x 2 and max cues. total A x 2 for positioning on the chair. call light and table placed within reach. Left pt with NAC in room. Gait Assessment Comments Gait Comments unable at this time PT-Balance Assessment Sitting Balance and Reactions Static Sitting Balance Ability Poor Dynamic Sitting Balance Ability Poor Standing Balance and Reactions Static Standing Balance Ability Poor Dynamic Standing Balance Ability Poor Device Used FWW M5 PT-IP Objective Assessments Start: 12/30/22 13:03 Freq: NEEDED Status: Active Protocol: Document 12/30/22 11:00 AB (Rec: 12/30/22 13:21 AB [id number]) Orientation Orientation/Cognition Level of Alertness Confusional State Orientation Name,Situation Language Function Ability Garbled Speech Safety Awareness Decreased Safety Awareness Memory Description Short Term Impaired,Data Support Specialist Impaired Gross Range of Motion Lower Extremity ROM Impairments B hamstrings tightness noted Strength Lower Extremity Strength Assessment Bilaterally Impaired Hip 3-/5 Knee 3+/5 M6 PT-IP Treatment Start: 12/30/22 13:03 Freq: NEEDED Status: Active Protocol: Document 12/30/22 11:00 AB (Rec: 12/30/22 13:21 AB [id number]) Physical Therapy Treatment Education Education Provided Safety M7 PT-IP Assessment and Plan Start: 12/30/22 13:03 Freq: NEEDED Status: Active Protocol: Document 12/30/22 11:00 AB (Rec: 12/30/22 13:21 AB [email or web address]) PT Summary Assessment and Plan Potential Rehabilitation Potential Fair Status of Condition at Evaluation Evolving Summary Impairments Pain,ROM,Strength,Balance, Coordination,Sensation,Tone, Cognition,Bed Mobility, Transfers,Gait,Activity Tolerance Assessment Summary pt presented to the ED with c/ o abdominal pain. Pt admitted for SBA and underwent bowel resection. pt with abdominal precautions and currently is NPO. pt has h/o CVA with L luis contributing to current assistance needed. pt requiring max A x 2 to total A x 2 with all mobilities and unable to ambulate at this time. pt lives with his spouse and son who can provide assistance but at this time is not safe to go home and will require SNF rehab to improve overall strength and mobility independence. will continue to assess progress. Goals Bed Mobility Goal Minimal Assistance Transfer Goal Minimal Assistance,Front Wheeled Walker Gait Goal Minimal Assistance,Front Wheel Walker Gait Distance 50 Other Goals improve bed mobility, transfers, ambulation using FWW 150 ft SBA up/down 2 steps FUR STORAGE CLERK CGA Days to Meet Goals 10 Frequency of Treatment Frequency Of Treatment Once a Day Treatment Plan Physical Therapy Treatment Plan Bed Mobility Training,Transfer Training,Gait Training, Therapeutic Exercise,Balance Retraining,Post Op Education, Discharge Planning,Hot or Cold Pack,Neuromuscular Re-ed, Coordination Retraining,Manual Therapy Precautions Other Precautions falls Recommendations To Nursing Amount of Assist Needed Mechanical Lift Discharge Recommendations PT Discharge Recommendations SNF Rehab Transportation Needs at Discharge Wheelchair/Cabulance,Stretcher /Ambulance
[2022-12-30 12:17] VITALS: BP 136/75; PULSE 101; RESP 16; TEMP 37.1; O2SAT 92
[2022-12-30] MEDS: KETOROLAC 30 MG/ML VIAL IV ×2 (13:49→21:00)
--- NOTE | 2022-12-30 13:51 | PM.PNPO.1 ---
Subjective Subjective Date Patient Seen: 12/30/22 Interval history: 77-year-old man postoperative day 2 status post exploratory laparotomy small-bowel resection x2 for small-bowel obstruction. He pulled his nasogastric tube overnight no emesis so far. Exam Vital Signs (past 8 hours): - 12/30/22 08:10 12/30/22 12:17 12/30/22 07:00 Temperature 99.1 F 98.8 F Pulse Rate 97 H 101 H Respiratory Rate 15 16 Blood Pressure 152/84 H 136/75 Pulse Oximetry 92 92 Oxygen Delivery Method Room Air Oxygen Flow Rate 0 0 Oxygen Delivery Method Room Air Oxygen Flow Rate 0 Narrative Exam Narrative: General elderly man history of stroke minimally verbal. Chest nonlabored Abdomen soft appropriately tender to palpation nondistended. Objective Labs 12/30/22 05:02 12/30/22 05:02 Labs: Laboratory Results - last 24 hr 12/29/22 12/29/22 12/30/22 16:13 18:51 05:02 WBC RBC Hgb Hct MCV MCH MCHC RDW Plt Count Neut % (Auto) Lymph % (Auto) [place] % (Auto) Eos % (Auto) Baso % (Auto) Lymph # (Auto) [place] # (Auto) Baso # (Auto) Total Counted Seg Neutrophils % Band Neutrophils % Lymphocytes % (Manual) Monocytes % (Manual) Neutrophils # (Manual) Toxic Granulation RBC Morphology Anisocytosis Sodium 143 Potassium 4.1 Chloride 116 H Carbon Dioxide 23 BUN 22 H Creatinine 1.22 Estimated GFR > 60 BUN/Creatinine Ratio 18.0 Glucose 79 L Lactate 2.1 1.7 Calcium 8.4 Magnesium Total Bilirubin 0.3 AST 50 ALT 28 Alkaline Phosphatase 67 Total Protein 5.7 L Albumin 2.8 L Globulin 2.9 Albumin/Globulin Ratio 1.0 Procalcitonin 54.6 H 12/30/22 12/30/22 05:02 05:02 WBC 15.8 H RBC 2.93 L Hgb 8.9 L Hct 26.5 L MCV 90.6 MCH 30.5 MCHC 33.7 RDW 15.1 H Plt Count 114 L Neut % (Auto) Not Reportable Lymph % (Auto) Not Reportable [place] % (Auto) Not Reportable Eos % (Auto) Not Reportable Baso % (Auto) Not Reportable Lymph # (Auto) Not Reportable [place] # (Auto) Not Reportable Baso # (Auto) Not Reportable Total Counted 100 Seg Neutrophils % 68.0 Band Neutrophils % 21.0 H Lymphocytes % (Manual) 9.0 L Monocytes % (Manual) 2.0 Neutrophils # (Manual) 23972 H Toxic Granulation Present H RBC Morphology See below Anisocytosis 1+ H Sodium Potassium Chloride Carbon Dioxide BUN Creatinine Estimated GFR BUN/Creatinine Ratio Glucose Lactate Calcium Magnesium 2.5 H Total Bilirubin AST ALT Alkaline Phosphatase Total Protein Albumin Globulin Albumin/Globulin Ratio Procalcitonin [facility] Medical History (Updated 12/28/22 @ 15:50 by Meghan Urbina MD) CVA, old, alterations of sensations History of small bowel obstruction Hypertension Iron deficiency anemia Seizure disorder Surgical History History of appendectomy History of bowel resection History of colonoscopy with polypectomy Family History Father Cancer Social History household members: spouse and children Smoking Status: Former smoker alcohol intake: never Assessment & Plan Post-op Postoperative Procedures: Procedures Operation Date: 12/28/22 15:45 Actual Procedure Side Surgeon p Exploratory Laparotomy GEN Not Applicable Ministerio Mcdonnell MD Postoperative status narrative: 77-year-old man postoperative day 2 status post exploratory laparotomy with small-bowel resection x2 for a small-bowel obstruction. -start trial of clear liquids -remove Wadsworth catheter -PT -noted leukocytosis and elevated procalcitonin. Monitor continue antibiotics for at least 5 days total for intra-abdominal infection in the setting of necrotic small bowel
--- NOTE | 2022-12-30 14:29 | PC.NURSE ---
Communicated with provider that NG tube was removed overnight around midnight and this am pt belching. Surgical provider acknowledged and did not order new insertion. In am, reported took pt's BG and the value was 70. Retook and it was 61. Treated pt with 1/2 amp D50 - next reading was 69. Gave second have of D50 amp and next two readings were above 80. Provider notified of hypoglycemic event. Pt was hypertensive in am (systolics 170s and 180s) and Dr. Mcdonnell aware. Surgical provider said ok to start clear liquids but pt swallowing with difficulty - hospitalist made aware and provider ordered SENIOR DATA WAREHOUSE ARCHITECT eval. Wadsworth removed / CHG bath done / pt voided after removal. RN communicated to provider that pt slightly tachycardiac and temp 99.4 -provider increased fluids to 150ml/hr. AM plt value 114 (dropping from previous labs) and provider said not to give lovenox.
[2022-12-30] MEDS: SODIUM CHLORIDE 0.9% 1,000 ML 150 ML IV (16:14)
[2022-12-30 16:45] VITALS: BP 126/74; PULSE 83; RESP 15; TEMP 36.8; O2SAT 93
[2022-12-30] MEDS: DEXTROSE 5%-0.9% NS 1,000 ML 100 ML IV (19:02)
[2022-12-30 20:49] VITALS: BP 165/78; PULSE 89; RESP 10; TEMP 36.8; O2SAT 94
[2022-12-30] MEDS: METOPROLOL TARTRATE 5 MG/5 ML INJ IV (22:19)
[2022-12-30 22:37] LABS: BUN Creatinine Ratio 17.5 (6-22); Blood Urea Nitrogen 20 mg/dL (9-20); Calcium 8.7 mg/dL (8.4-10.2); Carbon Dioxide 24 mmol/L (22-32); Chloride 115 mmol/L (98-107); Estimated Glomerular Filt Rate > 60 mL/min (>60); Glucose 95 mg/dL (80-110); HEMOLYSIS < 15 (0-50); Magnesium 2.3 mg/dL (1.6-2.3); Potassium 3.8 mmol/L (3.4-5.1); Sodium 143 mmol/L (137-145)
[2022-12-30 22:49] LABS: Troponin I < 0.012 ng/mL (0.01-0.034)
[2022-12-31] VITALS (8 sets, daily range): BP systolic 157–200; BP diastolic 79–93; PULSE 69–80; RESP 13–15; TEMP 36.6–37.1; O2SAT 95–98
[2022-12-31] MEDS: KETOROLAC 30 MG/ML VIAL IV ×2 (01:22→07:49)
[2022-12-31] MEDS: METOPROLOL TARTRATE 5 MG/5 ML INJ IV (04:45)
[2022-12-31] MEDS: PIPERACILLIN/TAZO 3.375 GM in SODIUM CHLORIDE 0.9% 100 ML IV ×3 (04:45→20:45)
[2022-12-31 05:09] LABS: Add Manual Diff / Slide Review NO; Basophils Absolute Auto 0 /uL (0-100); Basophils Percent Auto 0.2 % (0-2); Eosinophils Absolute Auto 0 /uL (0-450); Eosinophils Percent Auto 0.2 % (2-4); Hematocrit 28.9 % (41-53); Hemoglobin 9.7 g/dL (13.5-17.5); Lymphocytes Absolute Auto 900 /uL (1100-4500); Lymphocytes Percent Auto 4.4 % (25-40); Mean Corpuscular HGB Conc 33.7 % (30-36); Mean Corpuscular Hemoglobin 30.3 PG (26-34); Mean Corpuscular Volume 89.8 fL (80-100); Monocytes Absolute Auto 700 /uL (0-900); Monocytes Percent Auto 3.7 % (3-14); Neutrophils Absolute Auto 18200 /uL (1500-7000); Neutrophils Percent Auto 91.5 % (50-75); Platelet Count 139 X10^3/uL (150-400); Red Blood Cell Count 3.21 X10^6/uL (4.5-5.9); Red Cell Distribution Width 14.9 % (11.6-14.8); White Blood Cell Count 19.9 X10^3/uL (4.5-11.0)
[2022-12-31 05:19] LABS: BUN Creatinine Ratio 13.8 (6-22); Blood Urea Nitrogen 17 mg/dL (9-20); Calcium 9.1 mg/dL (8.4-10.2); Carbon Dioxide 26 mmol/L (22-32); Chloride 115 mmol/L (98-107); Estimated Glomerular Filt Rate > 60 mL/min (>60); Glucose 104 mg/dL (80-110); HEMOLYSIS < 15 (0-50); Potassium 3.7 mmol/L (3.4-5.1); Sodium 142 mmol/L (137-145)
[2022-12-31 05:36] LABS: Procalcitonin 37.6 ng/mL (<0.5)
--- NOTE | 2022-12-31 07:50 | PM.PN.1 ---
Subjective Subjective Interval history: Patient had vomiting this AM. NG tube replaced and large volume taken out of stomach. Had NSVT and given IV K. updated about changes and code status revisited as he is a full. She is going to discuss with family about possible DNR. Exam Vital Signs (past 8 hours): - 12/31/22 00:13 12/31/22 05:14 Temperature 97.8 F 98.0 F Pulse Rate 71 78 Respiratory Rate 13 14 Blood Pressure 164/84 H 186/87 H Pulse Oximetry 95 97 Oxygen Delivery Method Room Air Oxygen Flow Rate 0 Narrative Exam Narrative: GEN: no acute distress, mild cog impairment HEENT: moist mucous membranes, PERRL NECK: trachea midline, no JVD CV: regular rate and rhythm, no murmurs PULM: clear bilaterally ABD: post-op dressing in place, tender EXT: warm and well perfused with no edema NEURO: sleeping, no focal deficits Objective Labs 12/31/22 04:25 12/31/22 04:25 Labs: Laboratory Results - last 24 hr 12/30/22 12/31/22 12/31/22 22:15 04:25 04:25 WBC 19.9 H RBC 3.21 L Hgb 9.7 L Hct 28.9 L MCV 89.8 MCH 30.3 MCHC 33.7 RDW 14.9 H Plt Count 139 L Neut % (Auto) 91.5 H Lymph % (Auto) 4.4 L [place] % (Auto) 3.7 Eos % (Auto) 0.2 L Baso % (Auto) 0.2 Neut # (Auto) 77666 H Lymph # (Auto) 900 L [place] # (Auto) 700 Eos # (Auto) 0 Baso # (Auto) 0 Sodium 143 Potassium 3.8 Chloride 115 H Carbon Dioxide 24 BUN 20 Creatinine 1.14 Estimated GFR > 60 BUN/Creatinine Ratio 17.5 Glucose 95 Calcium 8.7 Magnesium 2.3 Troponin I < 0.012 Procalcitonin 37.6 H 12/31/22 04:25 WBC RBC Hgb Hct MCV MCH MCHC RDW Plt Count Neut % (Auto) Lymph % (Auto) [place] % (Auto) Eos % (Auto) Baso % (Auto) Neut # (Auto) Lymph # (Auto) [place] # (Auto) Eos # (Auto) Baso # (Auto) Sodium 142 Potassium 3.7 Chloride 115 H Carbon Dioxide 26 BUN 17 Creatinine 1.23 Estimated GFR > 60 BUN/Creatinine Ratio 13.8 Glucose 104 Calcium 9.1 Magnesium Troponin I Procalcitonin [facility] Medical History (Updated 12/28/22 @ 15:50 by Meghan Urbina MD) CVA, old, alterations of sensations History of small bowel obstruction Hypertension Iron deficiency anemia Seizure disorder Surgical History History of appendectomy History of bowel resection History of colonoscopy with polypectomy Family History Father Cancer Social History household members: spouse and children Smoking Status: Former smoker alcohol intake: never Assessment & Plan Assessment & Plan narrative: # sepsis secondary to acute SBO with acute bowel ischemia, active -presented with SIRS: WBC 25, lactate 8.3, HR 124, RR 22, procal 12.5 -s/p emergent ex-lap in OR with resection of 20cm small bowel and part of cecum, then reanastamosis -continue zosyn, added doxy due to uptrending WBC -gen surg managing post-op care -blood cultures NG so far -CXR on 12/31 with no PNA, no new abd pain so will hold on abd CT # lactic acidosis, resolved -8.3 on admission, likely due to ischemic gut -trend to normal -now 2.1 # FABRIZIO, resolved -Cr 2.26 on admission, baseline 1 -IVF -monitor and avoid nephrotoxic agents -Cr now normal # HTN -can resume amlodipine once NG out -holding lisinopril until able to take po -labetalol IV PRN # history of CVA with left sided weakness -holding Remeron, fluoxetine for now while NPO # seizure disorder -continue keppra but IV # GERD -PPI IV CODE: Full Proxy: Fariba Milan, spouse DVT/VTE prophylaxis:? Lovenox Dispo: 2-3 days until bowel function returns. Then SNF.
--- NOTE | 2022-12-31 08:00 | DI.RAD.S_ITS ---
PROCEDURE: XR CHEST 1V INDICATIONS: possible aspiration, increasing leukocytosis TECHNIQUE: One view of the chest was acquired. COMPARISON: [facility], CR, XR CHEST 1V, 12/28/2022, 13:54. FINDINGS: Surgical changes and devices: Nasogastric tube is in place with distal tip and distal side port extending below the level of the diaphragm and projecting over the left upper quadrant. Vertical midline skin reyna of the upper abdomen compatible with recent abdominal surgery. Lungs and pleura: No pneumothorax. No pleural effusion. Patchy bibasilar airspace opacities without focal consolidation. Findings are more pronounced on the left. Mediastinum: Mediastinal contours appear stable. Heart size is stable. Bones and chest wall: No suspicious bony lesions. Overlying soft tissues appear unremarkable. Diffusely scattered mildly prominent air-filled loops of small bowel likely related to postsurgical ileus. IMPRESSION: Mild patchy bibasilar airspace opacities likely representing atelectasis although early developing airspace disease/aspiration not excluded. No focal consolidation. Dictated by: Soy Moon M.D. on 12/31/2022 at 8:30 Approved by: Soy Moon M.D. on 12/31/2022 at 8:32
[2022-12-31] MEDS: POTASSIUM CHLORIDE IN WATER 10 MEQ/100 ML PIGGYBACK 100 MEQ IV ×4 (08:02→11:27)
[2022-12-31 08:40] LABS: Troponin I < 0.012 ng/mL (0.01-0.034)
[2022-12-31] MEDS: levETIRAcetam 1,000 MG in SODIUM CHLORIDE 0.9% 100 ML 440 MG IV ×2 (09:44→20:40)
--- NOTE | 2022-12-31 09:53 | PM.PNPO.1 ---
Subjective Subjective Date Patient Seen: 12/31/22 Time Patient Seen: 09:53 Interval history: Runs of VT Abdominal distention Worsening Leukocystosis Exam Vital Signs (past 8 hours): - 12/31/22 05:14 12/31/22 08:25 Temperature 98.0 F 98.7 F Pulse Rate 78 70 Respiratory Rate 14 15 Blood Pressure 186/87 H 187/90 H Pulse Oximetry 97 95 Oxygen Flow Rate 0 Oxygen Delivery Method Room Air Oxygen Flow Rate 0 Narrative Exam Narrative: Elderly man minimally verbal at baseline. No distress Abdomen distended no peritonitis Ext-WWP Objective Labs 12/31/22 04:25 12/31/22 04:25 Labs: Laboratory Results - last 24 hr 12/30/22 12/31/22 12/31/22 22:15 04:25 04:25 WBC 19.9 H RBC 3.21 L Hgb 9.7 L Hct 28.9 L MCV 89.8 MCH 30.3 MCHC 33.7 RDW 14.9 H Plt Count 139 L Neut % (Auto) 91.5 H Lymph % (Auto) 4.4 L [place] % (Auto) 3.7 Eos % (Auto) 0.2 L Baso % (Auto) 0.2 Neut # (Auto) 48429 H Lymph # (Auto) 900 L [place] # (Auto) 700 Eos # (Auto) 0 Baso # (Auto) 0 Sodium 143 Potassium 3.8 Chloride 115 H Carbon Dioxide 24 BUN 20 Creatinine 1.14 Estimated GFR > 60 BUN/Creatinine Ratio 17.5 Glucose 95 Calcium 8.7 Magnesium 2.3 Troponin I < 0.012 Procalcitonin 37.6 H 12/31/22 12/31/22 04:25 08:10 WBC RBC Hgb Hct MCV MCH MCHC RDW Plt Count Neut % (Auto) Lymph % (Auto) [place] % (Auto) Eos % (Auto) Baso % (Auto) Neut # (Auto) Lymph # (Auto) [place] # (Auto) Eos # (Auto) Baso # (Auto) Sodium 142 Potassium 3.7 Chloride 115 H Carbon Dioxide 26 BUN 17 Creatinine 1.23 Estimated GFR > 60 BUN/Creatinine Ratio 13.8 Glucose 104 Calcium 9.1 Magnesium Troponin I < 0.012 Procalcitonin [facility] Medical History (Updated 12/28/22 @ 15:50 by Meghan Urbina MD) CVA, old, alterations of sensations History of small bowel obstruction Hypertension Iron deficiency anemia Seizure disorder Surgical History History of appendectomy History of bowel resection History of colonoscopy with polypectomy Family History Father Cancer Social History household members: spouse and children Smoking Status: Former smoker alcohol intake: never Assessment & Plan Post-op Postoperative Procedures: Procedures Operation Date: 12/28/22 15:45 Actual Procedure Side Surgeon p Exploratory Laparotomy GEN Not Applicable Ministerio Mcdonnell MD Postoperative status narrative: 77M POD 3 sp exlap small bowel resection x 2 for sbo with necrotic bowel. -NGT replaced, patient had removed it yesterday, with large vol output on replacement. Continue to low wall intermittent suction -Noted increased leukocytosis and downtrending procalcitonin. No peritonitis, CXR grossly clear. Monitor and continue abx -Discussed code status with patient challenging given hx of stroke and dementia minimally verbal. Seems to express DNR will need further discussion/clarification with
[2022-12-31] MEDS: DOXYCYCLINE 100 MG in SODIUM CHLORIDE 0.9% 100 ML IV ×2 (10:34→20:45)
[2022-12-31] MEDS: DEXTROSE 5%-0.9% NS 1,000 ML 100 ML IV ×2 (10:35→20:39)
--- NOTE | 2022-12-31 12:05 | PT.IPTN ---
Current Diagnoses Complete intestinal obstruction, unspecified as to cause (12/28/22) Surgery Performed Operation Date: 12/28/22 15:45 Actual Procedures p Exploratory Laparotomy GEN(Not Applicable) - Ministerio Mcdonnell MD Physical Therapy Treatment Note M2 PT-IP Current Condition Start: 12/30/22 13:03 Freq: NEEDED Status: Active Protocol: Document 12/30/22 11:00 AB (Rec: 12/30/22 13:21 AB [id number]) Physical Therapy Current Condition Current Condition Evaluation Date 12/30/22 Treatment Diagnosis SBO s/p ex-lap bowel resection ; difficulty in walking Onset Date 12/28/22 M3 PT-IP Subjective Start: 12/30/22 13:03 Freq: NEEDED Status: Active Protocol: Document 12/31/22 11:50 KS (Rec: 12/31/22 12:55 KS [id number]) Subjective Physical Therapy Visit Type Type Treatment Note Visit Start Time 11:50 Visit Stop Time 12:05 Total Visit Minutes 15 Number of CHIEF ENGINEER Visits 1 Physical Therapy Visit Comments Patient Comments Agreeable to ther ex, no OOB mobility today per nurse due to protect IV Therapy Pain Assessment Pain When Pain Assessed At Rest M4 PT-IP Mobility and Gait Start: 12/30/22 13:03 Freq: NEEDED Status: Active Protocol: Document 12/31/22 11:50 KS (Rec: 12/31/22 12:55 KS [id number]) PT-Transfer Assessment Comments Mobility Comments Pt able to complete ankle pumps, quad sets, glute sets with verbal and tactile cues. Hamstring stretch due to BLE hamstring tightness. Pt agreeable to complete exercises w/ . Gait Assessment Comments Gait Comments unable at this time M5 PT-IP Objective Assessments Start: 12/30/22 13:03 Freq: NEEDED Status: Active Protocol: Document 12/30/22 11:00 AB (Rec: 12/30/22 13:21 AB [id number]) Orientation Orientation/Cognition Level of Alertness Confusional State Orientation Name,Situation Language Function Ability Garbled Speech Safety Awareness Decreased Safety Awareness Memory Description Short Term Impaired,Long-Term Impaired Gross Range of Motion Lower Extremity ROM Impairments B hamstrings tightness noted Strength Lower Extremity Strength Assessment Bilaterally Impaired Hip 3-/5 Knee 3+/5 M6 PT-IP Treatment Start: 12/30/22 13:03 Freq: NEEDED Status: Active Protocol: Document 12/31/22 11:50 KS (Rec: 12/31/22 12:55 KS [id number]) Physical Therapy Treatment Exercises Exercises Ankle Pumps,Gluteal Sets,Quad Sets Education Education Provided Safety M7 PT-IP Assessment and Plan Start: 12/30/22 13:03 Freq: NEEDED Status: Active Protocol: Document 12/31/22 11:50 KS (Rec: 12/31/22 12:55 KS [id number]) PT Summary Assessment and Plan Potential Rehabilitation Potential Fair Summary Impairments Pain,ROM,Strength,Balance, Coordination,Sensation,Tone, Cognition,Bed Mobility, Transfers,Gait,Activity Tolerance Progress Towards Goals Slow Progress due to Medical Issues,Slow Progress due to Activity Tolerance Assessment Summary Pt had NG tube replaced this AM, not feeling well. RN reports only one access for IV so limiting mobility today and just completing ther ex, which pt tolerated but demonstrated BLE weakness during all exercises. At this time, it appears pt will require SNF to improve strength and functional mobility. Goals Bed Mobility Goal Minimal Assistance Transfer Goal Minimal Assistance,Front Wheeled Walker Gait Goal Minimal Assistance,Front Wheel Walker Gait Distance 50 Other Goals improve bed mobility, transfers, ambulation using FWW 150 ft SBA up/down 2 steps DRUG AND ALCOHOL TREATMENT SPECIALIST CGA Days to Meet Goals 10 Frequency of Treatment Frequency Of Treatment Once a Day Treatment Plan Physical Therapy Treatment Plan Bed Mobility Training,Transfer Training,Gait Training, Therapeutic Exercise,Balance Retraining,Post Op Education, Discharge Planning,Hot or Cold Pack,Neuromuscular Re-ed, Coordination Retraining,Manual Therapy Precautions Other Precautions falls Recommendations To Nursing Amount of Assist Needed Mechanical Lift Discharge Recommendations PT Discharge Recommendations SNF Rehab Transportation Needs at Discharge Wheelchair/Cabulance,Stretcher /Ambulance
[2022-12-31] MEDS: PANTOPRAZOLE 40 MG VIAL IV (12:23)
[2022-12-31] MEDS: ENOXAPARIN 40 MG/0.4 ML SYRINGE SUBCUT (12:24)
--- NOTE | 2022-12-31 14:01 | DI.RAD.S_ITS ---
PROCEDURE: XR CHEST FOR PICC 1V INDICATIONS: PICC placement COMPARISON: [facility], ÁNGEL, XR CHEST 1V, 12/31/2022, 8:04. [facility], CR, XR CHEST 1V, 12/28/2022, 13:54. FINDINGS: PICC was placed by the intravenous therapy team from the right side. Fluoroscopic spot film demonstrates the tip of PICC projecting to the area of cavoatrial junction. Gastric tube in place with tip and side port projecting over the expected location of the stomach. IMPRESSION: Tip of PICC projects to the area of cavoatrial junction. Dictated by: Ankur Nguyễn M.D. on 12/31/2022 at 14:29 Approved by: Ankur Nguyễn M.D. on 12/31/2022 at 14:30
[2022-12-31] MEDS: LABETALOL 20 MG/4 ML SYRINGE 10 MG IV (16:02)
--- NOTE | 2022-12-31 16:33 | CM.DPC ---
Addendum entered by DEAN Navarro 12/31/22 16:43: SOFTWARE QUALITY ASSURANCE SPECIALIST completed PASRR SL Original Note: DCP Continued: SOFTWARE QUALITY ASSURANCE SPECIALIST reviewed EMR. Per provider, patient was puking this morning. Patient remains full code at this time, however, provider had conversations re: goals of care. From provider, wants to talk with kids and brother prior to making patient DNR. From RN, patient getting PICC line. From provider note, three days until bowel function returns to normal and then SNF. SOFTWARE QUALITY ASSURANCE SPECIALIST entered room and introduced self and role. Patient resting and accompanied by and addison at bedside. primary lead in d/c planning conversation. agrees that [facility] would be best for d/c plan and that [facility] is preference. SOFTWARE QUALITY ASSURANCE SPECIALIST spoke with Laury at [facility]. Laury reports she has to double check some things Sunday and did not officially accept patient back at this time but will let CM team know Sunday. Plan: 1) pending acceptance at [facility], will d/c there when medically stable. 2) obtain other preference for SNF from family and consider additional options. CM team will continue to follow as POC unfolds. DEAN Navarro
--- NOTE | 2022-12-31 16:33 | PC.NURSE ---
Day shift: Pt A&O to self, situation. C/o nausea, emesis 100mL. Provider notified. New orders received. NG placed, 1L green clear contents drained within ten mins. Pt denied nausea, pain. Incontinent small BM. Dressing with marked shadow drainage. R PIV infiltrated. Provider notified, PICC order received. Pt visualized pulling NG tape off nose, refastened with NG tape, pt reeducated on importance of NG tube at this time. Pt verbalized understanding but is forgetful. Fariba at bedside, encouraging pt to avoid touching NG. PICC placed by outside PICC RN. Pt BP elevated, provider notified, orders received. Pt's VSS, bed alarm active, curtain open for visualization. Care ongoing.
[2023-01-01] VITALS (20 sets, daily range): BP systolic 154–206; BP diastolic 77–94; PULSE 66–83; RESP 12–20; TEMP 36.2–38; O2SAT 96–100
[2023-01-01] MEDS: PIPERACILLIN/TAZO 3.375 GM in SODIUM CHLORIDE 0.9% 100 ML IV ×3 (04:37→20:40)
[2023-01-01] MEDS: LABETALOL 20 MG/4 ML SYRINGE 10 MG IV ×4 (04:37→18:54)
[2023-01-01 04:39] LABS: Add Manual Diff / Slide Review NO; Basophils Absolute Auto 0 /uL (0-100); Basophils Percent Auto 0.2 % (0-2); Eosinophils Absolute Auto 200 /uL (0-450); Eosinophils Percent Auto 1.7 % (2-4); Hematocrit 25.2 % (41-53); Hemoglobin 8.6 g/dL (13.5-17.5); Lymphocytes Absolute Auto 1400 /uL (1100-4500); Lymphocytes Percent Auto 13.1 % (25-40); Mean Corpuscular HGB Conc 34.3 % (30-36); Mean Corpuscular Hemoglobin 30.5 PG (26-34); Mean Corpuscular Volume 88.7 fL (80-100); Monocytes Absolute Auto 800 /uL (0-900); Monocytes Percent Auto 7.7 % (3-14); Neutrophils Absolute Auto 8400 /uL (1500-7000); Neutrophils Percent Auto 77.3 % (50-75); Platelet Count 144 X10^3/uL (150-400); Red Blood Cell Count 2.84 X10^6/uL (4.5-5.9); Red Cell Distribution Width 14.8 % (11.6-14.8); White Blood Cell Count 10.8 X10^3/uL (4.5-11.0)
[2023-01-01 05:02] LABS: BUN Creatinine Ratio 9.5 (6-22); Blood Urea Nitrogen 10 mg/dL (9-20); Calcium 8.4 mg/dL (8.4-10.2); Carbon Dioxide 23 mmol/L (22-32); Chloride 113 mmol/L (98-107); Estimated Glomerular Filt Rate > 60 mL/min (>60); Glucose 121 mg/dL (80-110); HEMOLYSIS < 15 (0-50); Sodium 142 mmol/L (137-145)
[2023-01-01 06:43] LABS: Magnesium 1.9 mg/dL (1.6-2.3)
[2023-01-01] MEDS: DEXTROSE 5%-0.45NS W/KCL 20MEQ 1,000 ML 100 MEQ IV (06:44)
[2023-01-01] MEDS: HYDRALAZINE 20 MG/ML VIAL 10 MG IV ×2 (06:53→22:39)
--- NOTE | 2023-01-01 07:12 | PC.NURSE ---
shift note--pt's b/p crept up to 196/92; labetalol 10mg iv x 2 doses given; HR dropped into 60's; pt having occ pvc's and his normal rhythm at times looks like a-flutter briefly; K-3.0 on am labs; Dr Peacock notified of b/p, HR, and labs; orders rec'd; ivf changed to d5 1/2ns w/ 20mEq Kcl at 100ml/hr; hydralazine 10mg iv given and b/p decreased to 171/77; pt's condom cath leaked; pt cleaned and complete linen change done; pt denies c/o pain; small dark colored liquid BM noted; has remained at bedside this shift
[2023-01-01] MEDS: DOXYCYCLINE 100 MG in SODIUM CHLORIDE 0.9% 100 ML IV ×2 (09:07→21:26)
[2023-01-01] MEDS: ENOXAPARIN 40 MG/0.4 ML SYRINGE SUBCUT (09:08)
[2023-01-01] MEDS: PANTOPRAZOLE 40 MG VIAL IV (09:08)
[2023-01-01] MEDS: HYDROMORPHONE 0.5 MG INJ 0.25 MG IV (09:26)
[2023-01-01] MEDS: DEXTROSE 5%-0.45% NS 1,000 ML 100 ML IV ×2 (09:44→20:34)
[2023-01-01] MEDS: levETIRAcetam 1,000 MG in SODIUM CHLORIDE 0.9% 100 ML 440 MG IV ×2 (09:44→20:50)
[2023-01-01] MEDS: POTASSIUM CHLORIDE IN WATER 10 MEQ/100 ML PIGGYBACK 100 MEQ IV ×4 (09:45→13:30)
--- NOTE | 2023-01-01 10:49 | SLP.IPNOTE ---
ST peck on hold, per nursing NG tube replaced, but patient has not yet passed anything
--- NOTE | 2023-01-01 15:31 | P.PN_ITS ---
Subjective Subjective Interval history: Continues to have abdominal distension with output from NG. Abdomen distended. Exam Vital Signs (past 8 hours): - 01/01/23 10:36 01/01/23 11:10 01/01/23 11:00 Pulse Rate 83 71 75 Respiratory Rate 14 Blood Pressure 188/88 H 154/77 H 184/83 H Pulse Oximetry 96 Oxygen Delivery Method Room Air Oxygen Flow Rate 0 Narrative Exam Narrative: GEN: no acute distress, mild cog impairment HEENT: moist mucous membranes, PERRL NECK: trachea midline, no JVD CV: regular rate and rhythm, no murmurs PULM: clear bilaterally ABD: post-op dressing in place, tender EXT: warm and well perfused with no edema NEURO: sleeping, no focal deficits Objective Labs 01/01/23 04:25 01/01/23 04:25 Labs: Laboratory Results - last 24 hr 01/01/23 01/01/23 01/01/23 04:25 04:25 04:25 WBC 10.8 RBC 2.84 L Hgb 8.6 L Hct 25.2 L MCV 88.7 MCH 30.5 MCHC 34.3 RDW 14.8 Plt Count 144 L Neut % (Auto) 77.3 H Lymph % (Auto) 13.1 L [place] % (Auto) 7.7 Eos % (Auto) 1.7 L Baso % (Auto) 0.2 Neut # (Auto) 8400 H Lymph # (Auto) 1400 [place] # (Auto) 800 Eos # (Auto) 200 Baso # (Auto) 0 Sodium 142 Potassium 3.0 L Chloride 113 H Carbon Dioxide 23 BUN 10 Creatinine 1.05 Estimated GFR > 60 BUN/Creatinine Ratio 9.5 Glucose 121 H Calcium 8.4 Magnesium 1.9 PFSH Medical History (Updated 12/28/22 @ 15:50 by Meghan Urbina MD) CVA, old, alterations of sensations History of small bowel obstruction Hypertension Iron deficiency anemia Seizure disorder Surgical History History of appendectomy History of bowel resection History of colonoscopy with polypectomy Family History Father Cancer Social History household members: spouse and children Smoking Status: Former smoker alcohol intake: never Assessment & Plan Assessment & Plan narrative: # sepsis secondary to acute SBO with acute bowel ischemia, active with thrombocytopenia and FABRIZIO -s/p emergent ex-lap in OR with resection of 20cm small bowel and part of cecum, then reanastamosis -continue zosyn, added doxy due to uptrending WBC but now improving WBC and normal today. -gen surg managing post-op care -blood cultures NG so far -CXR on 12/31 with no PNA, no new abd pain so will hold on abd CT likely due to ileus. # lactic acidosis, resolved -8.3 on admission, likely due to ischemic gut -trended to normal # FABRIZIO, resolved -Cr 2.26 on admission, baseline 1 -IVF -monitor and avoid nephrotoxic agents -Cr now normal # HTN -can resume amlodipine once NG out -holding lisinopril until able to take po -labetalol IV PRN # history of CVA with left sided weakness -holding Remeron, fluoxetine for now while NPO # seizure disorder -continue keppra but IV, currently on 1g BID so will continue IV. No seizures during admission. #acute blood loss anemia - presume secondary to surgical interventions. Hg stable in mid 8s today. # GERD -PPI IV CODE: Full Proxy: Fariba Milan, spouse DVT/VTE prophylaxis:? Lovenox Dispo: 2-3 days until bowel function returns. Then likely SNF.
--- NOTE | 2023-01-01 15:37 | P.PN_ITS ---
Subjective Subjective Date Patient Seen: 01/01/23 Time Patient Seen: 15:37 Interval history: Joseph is doing well. Working with PT today. Still having a fair amount out the NG tube and no real bowel function. Exam Vital Signs (past 8 hours): - 01/01/23 10:36 01/01/23 11:10 01/01/23 11:00 Pulse Rate 83 71 75 Respiratory Rate 14 Blood Pressure 188/88 H 154/77 H 184/83 H Pulse Oximetry 96 Oxygen Delivery Method Room Air Oxygen Flow Rate 0 Narrative Exam Narrative: Abdomen soft, appropriately tender Objective Labs 01/01/23 04:25 01/01/23 04:25 Labs: Laboratory Results - last 24 hr 01/01/23 01/01/23 01/01/23 04:25 04:25 04:25 WBC 10.8 RBC 2.84 L Hgb 8.6 L Hct 25.2 L MCV 88.7 MCH 30.5 MCHC 34.3 RDW 14.8 Plt Count 144 L Neut % (Auto) 77.3 H Lymph % (Auto) 13.1 L [place] % (Auto) 7.7 Eos % (Auto) 1.7 L Baso % (Auto) 0.2 Neut # (Auto) 8400 H Lymph # (Auto) 1400 [place] # (Auto) 800 Eos # (Auto) 200 Baso # (Auto) 0 Sodium 142 Potassium 3.0 L Chloride 113 H Carbon Dioxide 23 BUN 10 Creatinine 1.05 Estimated GFR > 60 BUN/Creatinine Ratio 9.5 Glucose 121 H Calcium 8.4 Magnesium 1.9 PFSH Medical History (Updated 12/28/22 @ 15:50 by Meghan Urbina MD) CVA, old, alterations of sensations History of small bowel obstruction Hypertension Iron deficiency anemia Seizure disorder Surgical History History of appendectomy History of bowel resection History of colonoscopy with polypectomy Family History Father Cancer Social History household members: spouse and children Smoking Status: Former smoker alcohol intake: never Assessment & Plan Assessment and plan (1) Bowel obstruction: Status: Acute Plan Doing well following exploratory laparotomy with small-bowel resection x2. Await bowel function.
--- NOTE | 2023-01-01 15:42 | CM.DPC ---
DCP Cont: Per MD, pt continues to have a fair amount of output with his NGT and likely will need another few days before medically stable to d/c to SNF. SW spoke to [facility] admissions who confirms they can accept pt pending his IV-Abx needs at d/c. Currently pt on IV Zosyn and IV Doxy and they could manage his current Zosyn dosing but not his IV Doxy. Unclear if pt will need IV-Abx at d/c and which IV-Abx. JAEL left msg with MD as he was currently bedside with another pt towards determining POC regarding antibiotics at d/c. Plan: JAEL to follow closely for clarification from MD regarding pt's IV-Abx needs at d/c and updating [facility] to confirm they can accept when medically stable in likely another 3-4 days. Mela Casillas MSW
--- NOTE | 2023-01-01 15:44 | PT.IPTN ---
Current Diagnoses Complete intestinal obstruction, unspecified as to cause (12/28/22) Unspecified intestinal obstruction, unspecified as to partial versus complete obstruction (12/28/22) Surgery Performed Operation Date: 12/28/22 15:45 Actual Procedures p Exploratory Laparotomy GEN(Not Applicable) - Ministerio Mcdonnell MD Physical Therapy Treatment Note M2 PT-IP Current Condition Start: 12/30/22 13:03 Freq: NEEDED Status: Active Protocol: Document 12/30/22 11:00 AB (Rec: 12/30/22 13:21 AB [id number]) Physical Therapy Current Condition Current Condition Evaluation Date 12/30/22 Treatment Diagnosis SBO s/p ex-lap bowel resection ; difficulty in walking Onset Date 12/28/22 M3 PT-IP Subjective Start: 12/30/22 13:03 Freq: NEEDED Status: Active Protocol: Document 01/01/23 15:00 DCW (Rec: 01/01/23 15:44 DCW [id number]) Subjective Physical Therapy Visit Type Type Treatment Note Visit Start Time 15:00 Visit Stop Time 15:28 Total Visit Minutes 28 Number of SENIOR SQL SERVER DBA Visits 0 Physical Therapy Visit Comments Patient Comments Pt supine in bed upon therapist entering, agreeable to treatment, very lethargic and slow to respond. H&H very close to subtherapeutic, but per RN, pt appropriate for PT at this time. Therapy Pain Assessment Pain Present Pain Present Denied Pain M4 PT-IP Mobility and Gait Start: 12/30/22 13:03 Freq: NEEDED Status: Active Protocol: Document 01/01/23 15:00 DCW (Rec: 01/01/23 15:44 DCW [id number]) PT-Bed Mobility Assessment Rolling Type of Rolling Log Rolling Level of Assist Maximal Assistance PT-Transfer Assessment Comments Mobility Comments Reviewed importance of log rolls and not using abdominal muscles to sit up in bed. Pt required Max Ax1 to perform any log rolls today. Gait Assessment Comments Gait Comments unable at this time M5 PT-IP Objective Assessments Start: 12/30/22 13:03 Freq: NEEDED Status: Active Protocol: Document 12/30/22 11:00 AB (Rec: 12/30/22 13:21 AB [id number]) Orientation Orientation/Cognition Level of Alertness Confusional State Orientation Name,Situation Language Function Ability Garbled Speech Safety Awareness Decreased Safety Awareness Memory Description Short Term Impaired,Auto Garage Mechanic Impaired Gross Range of Motion Lower Extremity ROM Impairments B hamstrings tightness noted Strength Lower Extremity Strength Assessment Bilaterally Impaired Hip 3-/5 Knee 3+/5 M6 PT-IP Treatment Start: 12/30/22 13:03 Freq: NEEDED Status: Active Protocol: Document 01/01/23 15:00 DCW (Rec: 01/01/23 15:44 DCW [id number]) Physical Therapy Treatment Exercises Exercises Ankle Pumps,Gluteal Sets,Quad Sets,Heel Slides,Supine Hip Abduction,Short Arc Quads M7 PT-IP Assessment and Plan Start: 12/30/22 13:03 Freq: NEEDED Status: Active Protocol: Document 01/01/23 15:00 DCW (Rec: 01/01/23 15:44 DCW [id number]) PT Summary Assessment and Plan Potential Rehabilitation Potential Fair Summary Impairments Pain,ROM,Strength,Balance, Coordination,Sensation,Tone, Cognition,Bed Mobility, Transfers,Gait,Activity Tolerance Progress Towards Goals Slow Progress due to Medical Issues,Slow Progress due to Activity Tolerance Assessment Summary Pt very passive with today's visit, Therapist provided Mod- Max assist with all exercise and limb mobility initially, as well as log rolls. Pt eventually performed Ankle pumps as instructed, as well as minimal heel slides. Still expecting pt will require SNF discharge at this time. Goals Bed Mobility Goal Minimal Assistance Transfer Goal Minimal Assistance,Front Wheeled Walker Gait Goal Minimal Assistance,Front Wheel Walker Gait Distance 50 Other Goals improve bed mobility, transfers, ambulation using FWW 150 ft SBA up/down 2 steps MARKETING DATABASE COORDINATOR CGA Days to Meet Goals 10 Frequency of Treatment Frequency Of Treatment Once a Day Treatment Plan Physical Therapy Treatment Plan Bed Mobility Training,Transfer Training,Gait Training, Therapeutic Exercise,Balance Retraining,Post Op Education, Discharge Planning,Hot or Cold Pack,Neuromuscular Re-ed, Coordination Retraining,Manual Therapy Precautions Abdominal Surgery Precautions Log Roll,Lifting Restrictions, Gait Belt above Incisional Area Other Precautions falls Recommendations To Nursing Amount of Assist Needed Mechanical Lift Discharge Recommendations PT Discharge Recommendations SNF Rehab Transportation Needs at Discharge Wheelchair/Cabulance,Stretcher /Ambulance
--- NOTE | 2023-01-01 17:17 | PC.NURSE ---
Patient transferred to room 216 for room assignment changes, report received from Chela IRVIN. Patient in bed, NG in place to LIWS, denies pain. IV fluids and antibiotics infusing as ordered. Call light within reach. Continue to monitor. Bed alaarm on for safety.
[2023-01-02] VITALS (12 sets, daily range): BP systolic 140–185; BP diastolic 72–102; PULSE 79–98; RESP 16–20; TEMP 36.6–37.2; O2SAT 97–100
[2023-01-02] MEDS: PIPERACILLIN/TAZO 3.375 GM in SODIUM CHLORIDE 0.9% 100 ML IV ×3 (04:33→21:45)
[2023-01-02 04:49] LABS: Add Manual Diff / Slide Review NO; Basophils Absolute Auto 0 /uL (0-100); Basophils Percent Auto 0.2 % (0-2); Eosinophils Absolute Auto 200 /uL (0-450); Eosinophils Percent Auto 2.5 % (2-4); Hemoglobin 8.5 g/dL (13.5-17.5); Lymphocytes Absolute Auto 1500 /uL (1100-4500); Mean Corpuscular HGB Conc 34.2 % (30-36); Mean Corpuscular Hemoglobin 30.7 PG (26-34); Mean Corpuscular Volume 89.7 fL (80-100); Monocytes Absolute Auto 1100 /uL (0-900); Monocytes Percent Auto 13.4 % (3-14); Neutrophils Absolute Auto 5100 /uL (1500-7000); Neutrophils Percent Auto 64.9 % (50-75); Platelet Count 160 X10^3/uL (150-400); Red Blood Cell Count 2.79 X10^6/uL (4.5-5.9); Red Cell Distribution Width 14.6 % (11.6-14.8); White Blood Cell Count 7.9 X10^3/uL (4.5-11.0)
[2023-01-02 04:57] LABS: Blood Urea Nitrogen 7 mg/dL (9-20); Calcium 8.1 mg/dL (8.4-10.2); Carbon Dioxide 21 mmol/L (22-32); Chloride 108 mmol/L (98-107); Estimated Glomerular Filt Rate > 60 mL/min (>60); Glucose 254 mg/dL (80-110); HEMOLYSIS < 15 (0-50); Sodium 134 mmol/L (137-145)
[2023-01-02 05:07] LABS: Potassium 2.7 mmol/L (3.4-5.1)
[2023-01-02] MEDS: HYDRALAZINE 20 MG/ML VIAL 10 MG IV ×2 (05:27→15:55)
[2023-01-02] MEDS: POTASSIUM CHLORIDE IN WATER 10 MEQ/100 ML PIGGYBACK 100 MEQ IV ×6 (05:54→12:59)
[2023-01-02] MEDS: DOXYCYCLINE 100 MG in SODIUM CHLORIDE 0.9% 100 ML IV ×2 (09:33→22:04)
[2023-01-02] MEDS: ENOXAPARIN 40 MG/0.4 ML SYRINGE SUBCUT (09:33)
[2023-01-02] MEDS: PANTOPRAZOLE 40 MG VIAL IV (09:34)
--- NOTE | 2023-01-02 10:40 | PT.IPTN ---
Current Diagnoses Complete intestinal obstruction, unspecified as to cause (12/28/22) Unspecified intestinal obstruction, unspecified as to partial versus complete obstruction (12/28/22) Surgery Performed Operation Date: 12/28/22 15:45 Actual Procedures p Exploratory Laparotomy GEN(Not Applicable) - Ministerio Mcdonnell MD Physical Therapy Treatment Note M2 PT-IP Current Condition Start: 12/30/22 13:03 Freq: NEEDED Status: Active Protocol: Document 01/02/23 10:17 SP (Rec: 01/02/23 14:34 SP [id number]) Physical Therapy Current Condition Current Condition Evaluation Date 12/30/22 Treatment Diagnosis SBO s/p ex-lap bowel resection ; difficulty in walking Onset Date 12/28/22 M3 PT-IP Subjective Start: 12/30/22 13:03 Freq: NEEDED Status: Active Protocol: Document 01/02/23 10:17 SP (Rec: 01/02/23 14:34 SP [id number]) Subjective Physical Therapy Visit Type Type Treatment Note Visit Start Time 10:17 Visit Stop Time 10:40 Total Visit Minutes 23 Notes Vital taken LUE automated: elevated supine 45*: BP 170/88 HR 84 SaO2 100% RA seated EOB: BP 176/95 HR 96 SaO2 100% MARINE RAILWAY OPERATOR provided 2nd person assist requried during mobility. MANAGER MANAGED CARE /MARINE RAILWAY OPERATOR managed NC tube, catheter, IV lines during mobility. Number of MANAGER MANAGED CARE Visits 1 Physical Therapy Visit Comments Patient Comments Pt alert and agreeable to working with therapy. Therapy Pain Assessment Pain When Pain Assessed During Mobility Pain Present Pain Present Pain Reported Location Abdomen Scale Used 8/10 Description With Movement Pain Behaviors Facial Grimacing,Guarding, Holding Area Pain Management Techniques Modification of Treatment,Re- positioning M4 PT-IP Mobility and Gait Start: 12/30/22 13:03 Freq: NEEDED Status: Active Protocol: Document 01/02/23 10:17 SP (Rec: 01/02/23 14:34 SP [id number]) PT-Bed Mobility Assessment Rolling Type of Rolling Log Rolling,Roll to Right Level of Assist Maximal Assistance Supine to Sit Supine to Sit 1 Person Assistance,Head of Bed Elevated,Bedrails Sit to Supine Sit to Supine Maximum Assistance,2 Person Assistance,Head of Bed Elevated,Bedrails Scooting Scooting to Edge of Bed Maximum Assistance Scooting Up and Down in Bed Maximum Assistance,Dependent PT-Transfer Assessment Sit to and From Stand Sit to and from Stand Maximum Assistance,2 Person Assistance,Use of Upper Extremities Equipment Transfer Assistive Device Gait Belt,Front Wheeled Walker Transfers Transfer Destination Bed Transfer Technique lateral side step EOB Transfer Ability Level of Assist Maximum Assistance,2 Person Assistance,Use of Upper Extremities Comments Mobility Comments MANAGER MANAGED CARE instructed BLE gentle slow BLE AROM: AP, HS pre mobility . Pt heavy LR sup>R SL redirected UEs use bed rail, support for LE/lower body R log roll with use transfer pad and BLEs to EOB. Cued push from rail then bed on R to right trunk sit, heavy Max A x1 to come to sit. Max A x1 scoot to EOB. Pt requires Min/ Mod A for sitting balance at EOB/ feet on floor. Gait belt over chest, STS from EOB Max A x2 w/use FWW. Lateral side step wtih max cues for sequencing and assist FWW repositioning while provided trunk wt shift support over stance LE for opposite LE repositioning side step toward HOB. stand<sit Max A x2, sit> R SL Max A x2 for trunk and BLEs into bed. Pt challenged maintaining SL log roll, requires Max cuing and dependent support to complete for safety abdominal support security alignment. Scoot up HOB dependent x2 due to decreased weakness. MANAGER MANAGED CARE/MARINE RAILWAY OPERATOR noted pt possible had BM and MARINE RAILWAY OPERATOR took over care end tx, MANAGER MANAGED CARE alarmed bed and call light in pt RUE reach on bed, for safety fall risk. REcommending SNF for progress strength and mobililty, pt agreeable. Gait Assessment Gait Gait Assistance Required: Maximum Assistance,2 Person Assist Distance (Feet) 2 Able to Maintain Weight Bearing Status Yes During Gait Assistive Devices Assistive Device Gait Belt,Front Wheeled Walker Orthotic/Prosthetic Devices or Brace: No Gait Deviations General Gait Pattern Antalgic,Decreased Stride Length,Decreased Feet Clearance,Flexed Trunk,Lateral Trunk Lean,Narrow Based Gait Factors Limiting Gait Function Factors Limiting Gait Function Decreased Activity Tolerance, Decreased Strength,Difficulty Following Directions,Limited Range of Motion,Pain,Poor Balance,Poor Safety Awareness Comments Gait Comments lateral side step toward EOB. see mobility details. Stair Climbing Assessment Comments Stair Climbing Comments unable assess at this time, will need to compelete 2 stairs WAREHOUSER for enterance home (see PT eval plan activities). PT-Balance Assessment Sitting Balance and Reactions Static Sitting Balance Ability Poor Dynamic Sitting Balance Ability Poor Standing Balance and Reactions Static Standing Balance Ability Poor Dynamic Standing Balance Ability Poor Device Used FWW M5 PT-IP Objective Assessments Start: 12/30/22 13:03 Freq: NEEDED Status: Active Protocol: Document 12/30/22 11:00 AB (Rec: 12/30/22 13:21 AB [id number]) Orientation Orientation/Cognition Level of Alertness Confusional State Orientation Name,Situation Language Function Ability Garbled Speech Safety Awareness Decreased Safety Awareness Memory Description Short Term Impaired,Skilled Nursing Impaired Gross Range of Motion Lower Extremity ROM Impairments B hamstrings tightness noted Strength Lower Extremity Strength Assessment Bilaterally Impaired Hip 3-/5 Knee 3+/5 M6 PT-IP Treatment Start: 12/30/22 13:03 Freq: NEEDED Status: Active Protocol: Document 01/02/23 10:17 SP (Rec: 01/02/23 14:34 SP [id number]) Physical Therapy Treatment Exercises Exercises Ankle Pumps,Quad Sets,Heel Slides Education Education Provided Precautions,Safety M7 PT-IP Assessment and Plan Start: 12/30/22 13:03 Freq: NEEDED Status: Active Protocol: Document 01/02/23 10:17 SP (Rec: 01/02/23 14:34 SP [id number]) PT Summary Assessment and Plan Potential Rehabilitation Potential Fair Status of Condition at Evaluation Evolving Summary Impairments Pain,ROM,Strength,Balance, Coordination,Sensation,Tone, Cognition,Bed Mobility, Transfers,Gait,Activity Tolerance Progress Towards Goals Slow Progress due to Pain,Slow Progress due to Medical Issues,Slow Progress due to Activity Tolerance Assessment Summary Pt improved participation with therapy, Max A x2 for all mobility. Min/Mod A sit EOB. Able to side step EOB Max A x2 w/ FWW. Recommending SNF for progression funcitional mobility strengthening toward PLOF. Will continue to assess progress. Goals Bed Mobility Goal Minimal Assistance Transfer Goal Minimal Assistance,Front Wheeled Walker Gait Goal Minimal Assistance,Front Wheel Walker Gait Distance 50 Other Goals improve bed mobility, transfers, ambulation using FWW 150 ft SBA up/down 2 steps WAREHOUSER CGA Days to Meet Goals 10 Frequency of Treatment Frequency Of Treatment Once a Day Treatment Plan Physical Therapy Treatment Plan Bed Mobility Training,Transfer Training,Gait Training, Therapeutic Exercise,Balance Retraining,Post Op Education, Discharge Planning,Hot or Cold Pack,Neuromuscular Re-ed, Coordination Retraining,Manual Therapy Other Recommendations and Next Treatment Bed mob, transfers, standing Focus endurance, gait if able with FWW. Precautions Abdominal Surgery Precautions Log Roll,Lifting Restrictions, Gait Belt above Incisional Area Other Precautions falls Recommendations To Nursing Amount of Assist Needed Mechanical Lift Discharge Recommendations PT Discharge Recommendations SNF Rehab Transportation Needs at Discharge Wheelchair/Cabulance,Stretcher /Ambulance
[2023-01-02] MEDS: levETIRAcetam 1,000 MG in SODIUM CHLORIDE 0.9% 100 ML 440 MG IV ×2 (11:06→21:08)
--- NOTE | 2023-01-02 11:58 | PM.PN.1 ---
Subjective Subjective Interval history: He felt a bit better this morning, with less abdominal pain. Had not had a bowel movement or gas but was on the toilet later in the day after talking with general surgery. Exam Vital Signs (past 8 hours): - 01/02/23 05:20 01/02/23 05:27 01/02/23 05:57 Temperature 97.8 F Pulse Rate 82 82 82 Respiratory Rate 18 Blood Pressure 172/95 H 172/95 H 145/75 H Pulse Oximetry 100 Oxygen Flow Rate 0 01/02/23 08:00 Temperature 98.5 F Pulse Rate 84 Respiratory Rate 18 Blood Pressure 157/80 H Pulse Oximetry 100 Oxygen Flow Rate Oxygen Delivery Method Room Air Oxygen Flow Rate 0 Narrative Exam Narrative: GEN: no acute distress, mild cog impairment HEENT: moist mucous membranes, PERRL NECK: trachea midline, no JVD CV: regular rate and rhythm, no murmurs PULM: clear bilaterally ABD: post-op dressing in place, tender, mild distension improved since yesterday. EXT: warm and well perfused with no edema NEURO: sleeping, no focal deficits Objective Labs 01/02/23 04:25 01/02/23 04:25 Labs: Laboratory Results - last 24 hr 01/02/23 01/02/23 04:25 04:25 WBC 7.9 RBC 2.79 L Hgb 8.5 L Hct 25.0 L MCV 89.7 MCH 30.7 MCHC 34.2 RDW 14.6 Plt Count 160 Neut % (Auto) 64.9 Lymph % (Auto) 19.0 L [place] % (Auto) 13.4 Eos % (Auto) 2.5 Baso % (Auto) 0.2 Neut # (Auto) 5100 Lymph # (Auto) 1500 [place] # (Auto) 1100 H Eos # (Auto) 200 Baso # (Auto) 0 Sodium 134 L Potassium 2.7 L* Chloride 108 H Carbon Dioxide 21 L BUN 7 L Creatinine 1.00 Estimated GFR > 60 BUN/Creatinine Ratio 7.0 Glucose 254 H D Calcium 8.1 L PFSH Medical History (Updated 12/28/22 @ 15:50 by Meghan Urbina MD) CVA, old, alterations of sensations History of small bowel obstruction Hypertension Iron deficiency anemia Seizure disorder Surgical History History of appendectomy History of bowel resection History of colonoscopy with polypectomy Family History Father Cancer Social History household members: spouse and children Smoking Status: Former smoker alcohol intake: never Assessment & Plan Assessment & Plan narrative: # sepsis secondary to acute SBO with acute bowel ischemia, active with thrombocytopenia and FABRIZIO -s/p emergent ex-lap in OR with resection of 20cm small bowel and part of cecum, then reanastamosis -continue zosyn, added doxy due to uptrending WBC but now improving WBC and normal today. Complete 7 days total therapy. -gen surg managing post-op care -blood cultures NG so far -CXR on 12/31 with no PNA, no new abd pain so will hold on abd CT likely due to ileus. # lactic acidosis, resolved -8.3 on admission, likely due to ischemic gut -trended to normal # FABRIZIO, resolved -Cr 2.26 on admission, baseline 1 -IVF -monitor and avoid nephrotoxic agents -Cr now normal # HTN -can resume amlodipine and lisinopril once tolerating oral, but will resume amlodipine first then lisinopril after FABRIZIO and to assess response. He is mildly hypertensive today. -holding lisinopril until able to take po -continue labetalol IV PRN # history of CVA with left sided weakness -holding Remeron, fluoxetine for now while NPO # seizure disorder -continue keppra but IV, currently on 1g BID so will continue IV. No seizures during admission. Transition to oral when able. #acute blood loss anemia - presume secondary to surgical interventions. Hg stable in mid 8s today. # GERD -PPI IV CODE: Full Proxy: Fariba Milan, spouse DVT/VTE prophylaxis:? Lovenox Dispo: 2-3 days until bowel function returns. Then likely SNF.
--- NOTE | 2023-01-02 12:16 | CM.DPC ---
DCP Continued: DEAN reviewed EMR. Per hospitalist in rounds, patient still has NG tube. Patient will not need IV antibiotics upon d/c. Hospitalist predicts likely d/c at end of week as well. DEAN spoke with Laury at [facility]. Updated her that patient will not need iv antibiotics upon d/c. Laury can accept patient later this week. Plan: patient to d/c to [facility] when medically stable. CM team will continue to follow closely. DEAN Navarro
[2023-01-02] MEDS: DEXTROSE 5%-0.45% NS 1,000 ML 100 ML IV (14:32)
--- NOTE | 2023-01-02 15:45 | PM.PNPO.1 ---
Subjective Subjective Date Patient Seen: 01/02/23 Time Patient Seen: 15:46 Interval history: Status post ex lap small bowel resection x2 for SBO. Bowel movement Exam Vital Signs (past 8 hours): - 01/02/23 08:00 01/02/23 12:00 01/02/23 13:04 Temperature 98.5 F 98.3 F Pulse Rate 84 79 86 Respiratory Rate 18 17 Blood Pressure 157/80 H 185/86 H 165/102 H Pulse Oximetry 100 100 Oxygen Delivery Method 01/02/23 08:00 Temperature Pulse Rate Respiratory Rate Blood Pressure Pulse Oximetry Oxygen Delivery Method Room Air Oxygen Delivery Method Room Air Oxygen Flow Rate 0 Narrative Exam Narrative: General elderly man alert no distress Abdomen mild distention. Appropriately tender to palpation. Extremities warm well perfused Objective Labs 01/02/23 04:25 01/03/23 05:05 Labs: Laboratory Results - last 24 hr 01/02/23 01/02/23 04:25 04:25 WBC 7.9 RBC 2.79 L Hgb 8.5 L Hct 25.0 L MCV 89.7 MCH 30.7 MCHC 34.2 RDW 14.6 Plt Count 160 Neut % (Auto) 64.9 Lymph % (Auto) 19.0 L [place] % (Auto) 13.4 Eos % (Auto) 2.5 Baso % (Auto) 0.2 Neut # (Auto) 5100 Lymph # (Auto) 1500 [place] # (Auto) 1100 H Eos # (Auto) 200 Baso # (Auto) 0 Sodium 134 L Potassium 2.7 L* Chloride 108 H Carbon Dioxide 21 L BUN 7 L Creatinine 1.00 Estimated GFR > 60 BUN/Creatinine Ratio 7.0 Glucose 254 H D Calcium 8.1 L PFSH Medical History (Updated 12/28/22 @ 15:50 by Meghan Urbina MD) History of small bowel obstruction Iron deficiency anemia Seizure disorder Hypertension CVA, old, alterations of sensations Surgical History History of colonoscopy with polypectomy History of bowel resection History of appendectomy Family History Father Cancer Social History household members: spouse and children Smoking Status: Former smoker alcohol intake: never Assessment & Plan Post-op Postoperative Procedures: Procedures Operation Date: 12/28/22 15:45 Actual Procedure Side Surgeon p Exploratory Laparotomy GEN Not Applicable Ministerio Mcdonnell MD Postoperative status narrative: 77 year old man postoperative day 5 status post ex lap small bowel resection x2 for small-bowel obstruction with necrotic bowel. -Post operative ileus has resolved. -Diet as tolerated -Follow up in general surgery clinic in 1-2 weeks for staple removal
[2023-01-03] VITALS (9 sets, daily range): BP systolic 146–172; BP diastolic 70–87; PULSE 78–92; RESP 18–20; TEMP 36.4–38.3; O2SAT 96–100
[2023-01-03] MEDS: DEXTROSE 5%-0.45% NS 1,000 ML 100 ML IV (01:54)
[2023-01-03] MEDS: PANTOPRAZOLE DR 20 MG TABLET PO (06:40)
[2023-01-03 06:45] LABS: Blood Urea Nitrogen 8 mg/dL (9-20); Calcium 8.7 mg/dL (8.4-10.2); Carbon Dioxide 18 mmol/L (22-32); Chloride 110 mmol/L (98-107); Estimated Glomerular Filt Rate > 60 mL/min (>60); Glucose 104 mg/dL (80-110); HEMOLYSIS < 15 (0-50); Potassium 3.2 mmol/L (3.4-5.1); Sodium 135 mmol/L (137-145)
[2023-01-03] MEDS: PIPERACILLIN/TAZO 3.375 GM in SODIUM CHLORIDE 0.9% 100 ML IV (09:48)
[2023-01-03] MEDS: ENOXAPARIN 40 MG/0.4 ML SYRINGE SUBCUT (09:49)
[2023-01-03] MEDS: METOCLOPRAMIDE 10 MG/2 ML INJ IV (09:49)
[2023-01-03] MEDS: lisinopriL 20 MG TABLET PO (09:49)
[2023-01-03] MEDS: ACETAMINOPHEN 325 MG TABLET 650 MG PO ×2 (09:49→18:23)
--- NOTE | 2023-01-03 10:22 | PT.IPTN ---
Current Diagnoses Complete intestinal obstruction, unspecified as to cause (12/28/22) Unspecified intestinal obstruction, unspecified as to partial versus complete obstruction (12/28/22) Surgery Performed Operation Date: 12/28/22 15:45 Actual Procedures p Exploratory Laparotomy GEN(Not Applicable) - Ministerio Mcdonnell MD Physical Therapy Treatment Note M2 PT-IP Current Condition Start: 12/30/22 13:03 Freq: NEEDED Status: Active Protocol: Document 01/02/23 10:17 SP (Rec: 01/02/23 14:34 SP [id number]) Physical Therapy Current Condition Current Condition Evaluation Date 12/30/22 Treatment Diagnosis SBO s/p ex-lap bowel resection ; difficulty in walking Onset Date 12/28/22 M3 PT-IP Subjective Start: 12/30/22 13:03 Freq: NEEDED Status: Active Protocol: Document 01/03/23 10:11 SAK (Rec: 01/03/23 10:21 SAK [id number]) Subjective Physical Therapy Visit Type Type Treatment Note Visit Start Time 09:35 Visit Stop Time 10:10 Total Visit Minutes 35 Notes RN provided second person assist to manage lines, SBA. Number of OFFICE ASST Visits 1 Physical Therapy Visit Comments Patient Comments Patient supine in bed with HOB elevated, agreable to PT. Lethargic, slow responses, some echolalic Therapy Pain Assessment Pain When Pain Assessed During Mobility Pain Present Pain Present Denied Pain M4 PT-IP Mobility and Gait Start: 12/30/22 13:03 Freq: NEEDED Status: Active Protocol: Document 01/03/23 10:11 SAK (Rec: 01/03/23 10:21 SAK [id number]) PT-Bed Mobility Assessment Rolling Type of Rolling Log Rolling,Roll to Left Level of Assist Maximal Assistance Supine to Sit Supine to Sit Maximum Assistance,1 Person Assistance,Head of Bed Elevated,Bedrails Scooting Scooting to Edge of Bed Maximum Assistance PT-Transfer Assessment Sit to and From Stand Sit to and from Stand Maximum Assistance,2 Person Assistance,Use of Upper Extremities Equipment Transfer Assistive Device Gait Belt Transfers Transfer Destination Chair Transfer Technique lateral side step EOB Transfer Ability Level of Assist Maximum Assistance,2 Person Assistance,Use of Upper Extremities Comments Mobility Comments Performed AROM>AAROM hansel UE's and LE's x 10 reps ea heelslides, hip ab, arm punches Gait Assessment Gait Gait Assistance Required: Maximum Assistance,2 Person Assist Distance (Feet) 2 Assistive Devices Assistive Device Gait Belt Gait Deviations General Gait Pattern Antalgic,Decreased Stride Length,Decreased Feet Clearance,Flexed Trunk,Lateral Trunk Lean,Narrow Based Gait Factors Limiting Gait Function Factors Limiting Gait Function Decreased Activity Tolerance, Decreased Strength,Difficulty Following Directions,Limited Range of Motion,Pain,Poor Balance,Poor Safety Awareness Comments Gait Comments 2 shuffling steps from bed to chair during transfer with max assist PT-Balance Assessment Sitting Balance and Reactions Static Sitting Balance Ability Poor Dynamic Sitting Balance Ability Poor Standing Balance and Reactions Static Standing Balance Ability Poor Dynamic Standing Balance Ability Poor M5 PT-IP Objective Assessments Start: 12/30/22 13:03 Freq: NEEDED Status: Active Protocol: Document 12/30/22 11:00 AB (Rec: 12/30/22 13:21 AB [id number]) Orientation Orientation/Cognition Level of Alertness Confusional State Orientation Name,Situation Language Function Ability Garbled Speech Safety Awareness Decreased Safety Awareness Memory Description Short Term Impaired,Rn Lactation Impaired Gross Range of Motion Lower Extremity ROM Impairments B hamstrings tightness noted Strength Lower Extremity Strength Assessment Bilaterally Impaired Hip 3-/5 Knee 3+/5 M6 PT-IP Treatment Start: 12/30/22 13:03 Freq: NEEDED Status: Active Protocol: Document 01/03/23 10:11 HECTOR (Rec: 01/03/23 10:21 [facility] [id number]) Physical Therapy Treatment Exercises Exercises Ankle Pumps,Heel Slides,Supine Hip Abduction,Seated Knee Flexion/Extension Education Education Provided Precautions,Safety Other Treatments Other Treatment Performed sit to stand x 1 with gait belt and max assist, patient holding onto PT arms, followed by sit to stand transfer with 2 shuffling steps, max assist transfer. Continue to recommend SNF rehab for patient due to heavy physical assist with all mobility needs . M7 PT-IP Assessment and Plan Start: 12/30/22 13:03 Freq: NEEDED Status: Active Protocol: Document 01/03/23 10:11 HECTOR (Rec: 01/03/23 10:21 [facility] [id number]) PT Summary Assessment and Plan Potential Rehabilitation Potential Fair Status of Condition at Evaluation Evolving Summary Impairments Pain,ROM,Strength,Balance, Coordination,Sensation,Tone, Cognition,Bed Mobility, Transfers,Gait,Activity Tolerance Progress Towards Goals Slow Progress due to Pain,Slow Progress due to Medical Issues,Slow Progress due to Activity Tolerance Assessment Summary Patient willing to participate in PT but lethargic and required max assist with all mobility. Required RN assist to place his hands on PT arms for transfer. Goals Bed Mobility Goal Minimal Assistance Transfer Goal Minimal Assistance,Front Wheeled Walker Gait Goal Minimal Assistance,Front Wheel Walker Gait Distance 50 Other Goals improve bed mobility, transfers, ambulation using FWW 150 ft SBA up/down 2 steps BUCKET WASH OPERATOR CGA Days to Meet Goals 10 Frequency of Treatment Frequency Of Treatment Once a Day Treatment Plan Physical Therapy Treatment Plan Bed Mobility Training,Transfer Training,Gait Training, Therapeutic Exercise,Balance Retraining,Post Op Education, Discharge Planning,Hot or Cold Pack,Neuromuscular Re-ed, Coordination Retraining,Manual Therapy Other Recommendations and Next Treatment Bed mob, transfers, standing Focus endurance, gait if able with FWW. Precautions Abdominal Surgery Precautions Log Roll,Lifting Restrictions, Gait Belt above Incisional Area Other Precautions falls Recommendations To Nursing Amount of Assist Needed 2 Person Assist,Mechanical Lift Discharge Recommendations PT Discharge Recommendations SNF Rehab Transportation Needs at Discharge Wheelchair/Cabulance,Stretcher /Ambulance
[2023-01-03] MEDS: DOXYCYCLINE 100 MG in SODIUM CHLORIDE 0.9% 100 ML IV (11:03)
[2023-01-03] MEDS: levETIRAcetam 1,000 MG in SODIUM CHLORIDE 0.9% 100 ML 440 MG IV (11:04)
--- NOTE | 2023-01-03 14:00 | OT.IP.EVAL ---
Current Diagnoses Complete intestinal obstruction, unspecified as to cause (12/28/22) Unspecified intestinal obstruction, unspecified as to partial versus complete obstruction (12/28/22) Surgery Performed Operation Date: 12/28/22 15:45 Actual Procedures p Exploratory Laparotomy GEN(Not Applicable) - Ministerio Mcdonnell MD Past Medical History (Last Reviewed 08/14/22 @ 18:39 by Karis Giron MD) CVA, old, alterations of sensations History of small bowel obstruction Hypertension Iron deficiency anemia Seizure disorder Surgical History (Last Reviewed 08/14/22 @ 18:39 by Karis Giron MD) History of appendectomy History of bowel resection History of colonoscopy with polypectomy Occupational Therapy Inpatient Evaluation/Re-Eval M1 PT/OT-IP Prior Functional Status Start: 01/03/23 14:49 Freq: NEEDED Status: Active Protocol: Document 01/03/23 14:00 [facility] (Rec: 01/03/23 16:00 [facility] [id number]) Medical Review Prior Functional Status Medical History Reviewed Yes Communication pt with difficulty talking; able to answer some questions but inconsistent and with unclear speech Mobility and Gait Pt's states pt mostly in bed and at times needing assist for transfers. Activities of Daily Living and IADL's Pt's states at times pt needing assist for dressing and toileting needs. Pt needs assist for sponge bath as unable to get to the bathroom upstairs. Social History Household Members spouse,children Living Arrangements House Number of Floors (Floors) Two Floors Number of Stairs To Enter/Railing? pt stays on main level of the house There are two steps to get into the house. Pt's states one person is on each side of the pt and assist him to get up the two steps into the house. Home Environment High Toilet,Walk in Shower Home Equipment Front Wheel Walker,Four Wheel Walker,Manual Wheelchair, Shower Seat with Backrest,Hand Held Shower,Hospital Bed,Grab Bars Near Toilet Additional Social History Comment pt lives with spouse Fariba and son who has been assisting him at home pt just do sponge bathing The walk in shower is upstairs . M2 OT-IP Current Condition Start: 01/03/23 14:49 Freq: Status: Active Protocol: Document 01/03/23 14:00 [facility] (Rec: 01/03/23 16:00 [facility] [id number]) Occupational Therapy Current Condition Current Condition Evaluation Date 01/03/23 Treatment Diagnosis S/P Small bowel resection x2, weakness Diagnosis Onset Date 12/28/22 Post Operative Precautions Abdominal Surgery Precautions Log Roll,Lifting Restrictions, Gait Belt above Incisional Area M3 OT- IP Subjective and Pain Start: 01/03/23 14:49 Freq: Status: Active Protocol: Document 01/03/23 14:00 [facility] (Rec: 01/03/23 16:00 [facility] [id number]) OT- Subjective Occupational Therapy Visit Type Type Initial Evaluation Visit Start Time 14:00 Visit Stop Time 14:47 Total Visit Minutes 47 Occupational Therapy Visit Comments Patient Comments Pt brief soiled and pt agreed to get back to bed so able to get cleaned up. Patient/Caregiver Goals To get better. OT Pain Assessment Pain When Pain Assessed At Rest Pain Present Pain Present Pain Reported Location Abdomen Pain Behaviors Facial Grimacing,Wincing M4 OT- IP ADL's Start: 01/03/23 14:49 Freq: Status: Active Protocol: Document 01/03/23 14:00 [facility] (Rec: 01/03/23 16:00 [facility] [id number]) OT [id number] Comments OT Self-Feeding Comments Not at meal time. Pt will need assist for set-up. OT ADL-Grooming General Evaluation Grooming Ability Standby Assistance Areas Needing Assistance Retrieving/Set-up of Grooming Items Comments OT Grooming Comments Pt able to wash his face after set-up of wash cloth. OT ADL-Oral Care Comments Oral Care Comments Not performed. OT ADL-Dressing General Eval Lower Body Dressing Ability Total Assistance Areas Needing Assistance Underpants/Brief Comments OT Dressing Comments Total assist log rolling in the bed for brief change. OT ADL-Toileting General Evaluation Toileting Ability Total Assistance Areas Needing Assistance Manage Clothing,Perform Perineal Hygiene Comments OT Toileting Comments MAX /Total x2 for all brief and hygiene needs at this time . OT ADL-Bathing Bathing Type Bathing Type Bed Bath General Evaluation Bathing Ability Maximal Assistance Areas Needing Assistance Retrieving/Setting Up Items, Wash/Dry Upper Body,Wash/Dry Back,Wash/Dry Perineal Area, Wash/Dry Lower Extremities Comments OT Bathing Comments Pt able to assist to wash his face and arms. Pt needing assist for the rest of his body. M5 OT- IP IADL's Start: 01/03/23 14:49 Freq: Status: Active Protocol: Document 01/03/23 14:00 [facility] (Rec: 01/03/23 16:00 [facility] [id number]) OT-Instrumental Activities of Daily Living Deficits IADL Deficits Identified Deficits Home Safety Awareness Awareness of Need for Assistance at Home Decreased Awareness Ability to Problem Solve Emergency Unable to Problem Solve Situations Home Safety Comments Pt very sleepy at the end of the session. Pt's states someone is always with him at home to assist. Medication Management Medication Management Caregiver Administers Money Management Money Management Caregiver Provides Assistance Meal Preparation Meal Preparation Caregiver Provides Assist Advanced Practice Registered Nurse Advanced Practice Registered Nurse Caregiver Provides Assist M6 OT- IP Functional Cognition Start: 01/03/23 14:49 Freq: Status: Active Protocol: Document 01/03/23 14:00 [facility] (Rec: 01/03/23 16:00 [facility] [id number]) Cognitive Factors Limiting Selfcare Function Cognitive Ability Level of Alertness Alert,Drowsy Patient Orientation Name Attention Span Ability Capable of Focused Attention, Unable to Sustain Attention Ability to Follow Commands Able to Follow One Step Commands with Increased Time, Able to Follow One Step Commands with Repetition Memory Description Short Term Impaired,Human Resources Manager Impaired,Working Impaired Cognitive Comments Cognitive Assessment Comments Pt able to follow simple concrete commands. Pt is a poor historian for his prior level and home set-up. OT- Vision and Hearing OT- Hearing Assessment OT- Hearing Assessment WF M7 OT- IP Mobility and Balance Start: 01/03/23 14:49 Freq: Status: Active Protocol: Document 01/03/23 14:00 [facility] (Rec: 01/03/23 16:00 [facility] [id number]) OT- Bed Mobility Assessment Rolling Type of Rolling Bilateral Level of Assistance Maximum Assistance,1 Person Assistance,2 Person Assistance Sit to Supine Sit to Supine Assist Total Assistance,1 Person Assistance Scooting Scooting to Edge of Bed Maximum Assistance,1 Person Assistance OT-Transfer Assessment Sit to and From Stand Sit to and from Stand Maximum Assistance,1 Person Assistance Transfers Transfer Ability Maximum Assistance,2 Person Assistance Technique Transfer Destination Bed,Chair Transfer Technique Stand Step Pivot Devices Transfer Assistive Devices None,Gait Belt Comments Mobility Comments MAX A x1 to help scoot forwards in the recliner with the green pad. MAX AX 1 to stand and another person assist at his hips for stand pivot transfer, therefore MAX AX 2 for stand pivot transfer. OT- Balance Assessment Sitting Balance and Reactions Static Sitting Balance Ability Poor Dynamic Sitting Balance Ability Poor Standing Balance and Reactions Static Standing Balance Ability Poor Dynamic Standing Balance Ability Poor M8 OT- IP Objective Assessments Start: 01/03/23 14:49 Freq: Status: Active Protocol: Document 01/03/23 14:00 [facility] (Rec: 01/03/23 16:00 [facility] [id number]) OT Gross Range of Motion Upper Extremity Range of Motion Assessment Bilaterally Impaired OT Strength Upper Extremity Strength Assessment Bilaterally Impaired M9 OT- IP Assessment and Plan Start: 01/03/23 14:49 Freq: Status: Active Protocol: Document 01/03/23 14:00 [facility] (Rec: 01/03/23 16:00 [facility] [id number]) OT Summary Assessment and Plan Potential Rehabilitation Potential Fair Analytic Complexity at Evaluation High Summary OT Impairments Pain,Range of Motion,Strength, Balance,Functional Mobility, Self-Feeding,Grooming,Dressing ,Toileting,Toilet Transfers, Activity Tolerance Progress Towards Goals Slow Progress due to Pain,Slow Progress due to Medical Issues,Slow Progress due to Activity Tolerance Assessment Summary Pt high complexity and main barriers are pain, decreased activity tolerance, balance and now needing extensive two person assist for all needs. Pt will greatly benefit from skilled rehab when medically stable. Goals Self-Feeding Goal Standby Assistance Grooming Goal Standby Assistance Dressing Goal Minimal Assistance Toileting Goal Minimal Assistance Bathing Goal Moderate Assistance Toilet Transfer Goal Minimal Assistance Days to Meet Goals 20 Frequency of Treatment Frequency Of Treatment Once a Day Treatment Plan OT Treatment Plan ADL Training,Functional Cognition Training,Functional Mobility,Patient/Family Education,Discharge Planning Other Treatment Recommendations and Next Pt to be able to sit at the Treatment Focus edge of the bed with MORALES and be able to do grooming needs with MODA x1. Discharge Recommendations OT Discharge Recommendations SNF Rehab Transportation Needs at Discharge Wheelchair/Cabulance
--- NOTE | 2023-01-03 14:24 | PM.PN.1 ---
Subjective Subjective Interval history: No complaints this morning, he does feel fatigued and weak but abdominal pain much improved, no additional bowel movements but passing gas today and tolerating his diet. Nursing reports minimal PO intake at breakfast. Exam Vital Signs (past 8 hours): - 01/03/23 07:30 01/03/23 07:52 01/03/23 11:30 Temperature 99.3 F 97.7 F Pulse Rate 92 H 86 Respiratory Rate 18 18 Blood Pressure 162/74 H 165/85 H Pulse Oximetry 99 99 Oxygen Delivery Method Room Air Oxygen Flow Rate 0 Oxygen Delivery Method Room Air Oxygen Flow Rate 0 Narrative Exam Narrative: GEN: no acute distress, mild cog impairment HEENT: moist mucous membranes, PERRL NECK: trachea midline, no JVD CV: regular rate and rhythm, no murmurs PULM: clear bilaterally ABD: soft, non-distended, no reported tenderness. EXT: warm and well perfused with no edema NEURO: sleeping, no focal deficits Objective Labs 01/02/23 04:25 01/03/23 05:05 Labs: Laboratory Results - last 24 hr 01/03/23 05:05 Sodium 135 L Potassium 3.2 L Chloride 110 H Carbon Dioxide 18 L BUN 8 L Creatinine 1.15 Estimated GFR > 60 BUN/Creatinine Ratio 7.0 Glucose 104 D Calcium 8.7 PFSH Medical History (Updated 12/28/22 @ 15:50 by Meghan Urbina MD) History of small bowel obstruction Iron deficiency anemia Seizure disorder Hypertension CVA, old, alterations of sensations Surgical History History of colonoscopy with polypectomy History of bowel resection History of appendectomy Family History Father Cancer Social History household members: spouse and children Smoking Status: Former smoker alcohol intake: never Assessment & Plan Assessment & Plan narrative: # sepsis secondary to acute SBO with acute bowel ischemia, active with thrombocytopenia and FABRIZIO -s/p emergent ex-lap in OR with resection of 20cm small bowel and part of cecum, then reanastamosis -continued zosyn, added doxy due to uptrending WBC but now improving WBC and normal today. Can stop antibiotics, completed 6 days of therapy. -gen surg managing post-op care -blood cultures without growth. -CXR on 12/31 with no PNA, no new abd pain so will hold on abd CT likely due to ileus. # lactic acidosis, resolved -8.3 on admission, likely due to ischemic gut -trended to normal # FABRIZIO, resolved -Cr 2.26 on admission, baseline 1 -IVF -monitor and avoid nephrotoxic agents -Cr now normal # HTN -can resume amlodipine and lisinopril once tolerating oral, but will resume amlodipine first then lisinopril after FABRIZIO and to assess response. He is mildly hypertensive today. -holding lisinopril until able to take po -continue labetalol IV PRN # history of CVA with left sided weakness -holding Remeron, fluoxetine for now while NPO # seizure disorder -continue keppra but IV, currently on 1g BID so will continue IV. No seizures during admission. Will transition back to home PO 1g BID dosing today. #acute blood loss anemia - presume secondary to surgical interventions. Hg stable in mid 8s. Stopped trending. # GERD -PPI IV CODE: Full Proxy: Fariba Crosss, spouse DVT/VTE prophylaxis:? Lovenox Dispo: SNF, hopeful for tomorrow.
--- NOTE | 2023-01-03 15:57 | ST.IPCSEOM ---
Visit Care Team Role Provider Type Gemini Nix MD Primary Care Provider Non-Staff Specialty: Internal Medicine Address: [facility] [place], [address] Email: Kenny Hernandez MD Other Providers Physician Specialty: General Surgery Address: [address] [place] [address], [address], [place], [address] Email: [email or web address] Meghan Urbina MD Emergency Provider Physician Referring Provider Specialty: Emergency Medicine Address: [address] [place], [address] Email: [email or web address] Admit Provider Physician Attending Provider Specialty: Internal Medicine Address: [address] [place] [address], [id number] Email: [email or web address] Current Diagnoses Complete intestinal obstruction, unspecified as to cause (12/28/22) Unspecified intestinal obstruction, unspecified as to partial versus complete obstruction (12/28/22) Past Medical History (Last Reviewed 08/14/22 @ 18:39 by Karis Giron MD) CVA, old, alterations of sensations (Medical) History of small bowel obstruction (Medical) w/ recurrence Hypertension (Medical) Iron deficiency anemia (Medical) Seizure disorder (Medical) Speech-Language Pathology Swallow Evaluation MANAGER SERVICES Clinical Swallow Evaluation Start: 01/03/23 15:20 Freq: Status: Active Protocol: Document 01/03/23 15:21 CG (Rec: 01/03/23 15:57 CG [id number]) Clinical Swallow Evaluation Session Time Visit Start Time 16:45 Visit Stop Time 17:15 Total Visit Minutes [address] Wade Reason for Referral Dysphagia Next Note Type Next Note Type Treatment Note Patient Information Identification Type Name,ID Card History Per H&P: Joseph Milan is a 77yo M with PMH of recurrent SBO, HTN, CVA, seizure disorder, and GERD who presented with abd pain and found to have SBO with ischemic bowel. Per developed acute abd pain yesterday with NV. Taken emergently to OR and had resection of small bowel plus part of cecum. Lactate 8.3 in ED. Hemodynamically stable. Procal 12.5. Admitted to ICU for post-op care. Pt was referred to ST due to concerns for difficulty with PO intake. Subjective Observations Pt was partially reclined in bed after having finished with nursing and OT providing toileting care. He woke up easily to the sound of his name and was agreeable to participate with swallow evaluation, though he appeared fatigued and was minimally verbal unless prompted for a response. Reported by Patient/Caregiver Pain/Discomfort No Other Symptoms Difficulty swallowing solids Comment Nursing reports limited PO intake, slow intake Current Diet Regular (IDDSI 7) Baseline Feeding Method Dependent for feeding The IDDSI Framework Protocol: IDDSI.1 Objective Assessment Mental Status Cooperative,Confused,Lethargic Oral Integrity WFL Dentition Missing teeth,Decay Lip Function Mild impairment Tongue Function Moderate impairment Observations of Tongue at Rest Involuntary movement(s) Tongue Protrusion Involuntary movement(s) Tongue Lateralization Reduced range of motion, Reduced strength Hard/Soft Palate Function Within normal limits Observations of Hard/Soft Palate Within normal limits Respiratory Sufficiency Within normal limits Comment OME reveals lingual tremors at rest, slow/discoordinated lingual movements, sparse and decayed dentition. Palate appears WFL. Voice weak but quality WFL. Food and Liquid Trials Position During Assessment Upright (90 degrees) Liquids Trialed Thin (IDDSI 0) Solid Trials Regular (IDDSI 7) Administration Type Straw,Dependent feeding Oral Impairment Moderately impaired Oral Phase Comments During trials liquid via straw sip, the pt presented with delayed intitiation of the swallow. Lingual movements to intiate swallow appeared disorganized and prlongued before initiation of brisk AP movement for bolus transport. During trial regular solid ( granola bar), pt presented with prolongued, perseverative mastication on small piece of solid food (approx size of quarter). Required verbal cues x2 to swallow this bite. After swallow, minimal residue was visible on dentition and under lateral edges of tongue blade. Pharyngeal Impairment Within functional limits Pharyngeal Phase Comments No overt s/sx aspiration/ penetration were observed; however, silent aspiration cannot be ruled out without an instrumental assessment. During sips of water via straw sip, pt demonstrated audible gulp swallow, possibly indicative of discoordinated swallow physiology, but unclear without MBS. Following larger sips, the pt made a jolt movement as if hit with a sudden chill. He denied feeling cold and denied difficulty or pain with swallowing. However, this resolved when sip size was decreased via MANAGER SERVICES providing small sip from straw. No coughing, through clearing, or wet vocal quality was observed. Fatigue/Endurance Moderate fatigue Comment Throughout assessment, pt presented with decreased level of alertness and minimal responsiveness to MANAGER SERVICES unless directly asked a question. He was able to follow one-step directions, but appeared fatigued and disoriented. Results MANAGER SERVICES recommends: 1. Upright position for meals/ liquids/meds. 2. Meds as tolerated. 3. Check for pocketing due to decreased level of alertness. 4. Small, controlled sips. 5. Minced and moist solids to decrease need for excessive mastication. 6. ST to follow for diet tolerance. The IDDSI Framework Protocol: IDDSI.1 Findings Swallowing Function Oral phase dysphagia Severity of Swallow Impairment Moderately impaired Contributing Factors to Swallow Reduced alertness or attention Impairment ,Reduced oral strength/ coordination/sensation, Mastication inefficiency, Delayed swallow initiation Prognosis Fair Based on Cognitive status,Bed bound, Comorbidities Impact on Safety and Functioning Risk for inadequate nutrition/ hydration Recommendations Instrumental Assessment No Swallowing Treatment Yes Recommended Solids Minced & Moist (IDDSI 5) Recommended Liquids Thin (IDDSI 0) Other Recommendations Small sips. Minced and moist solids due to excessive mastication time. ST to follow for diet tolerance. Safety Precautions/Swallowing Supervision needed for all Recommendations meals,1 to 1 close supervision ,Feed only when alert,Remain upright (90 degrees) during all oral intake,Small bites and sips when eating,1 to 1 feeding assistance,Check for pocketing Medication Recommendations As Tolerated Discharge Recommendations Home,[facility] facility, jail care facility,Other (comment) Comments 24-hr assistance/supervision; Dementia strategies Goals Short-term Goals 1. The pt will safely and efficiently tolerate diet of minced and moist solids and thin liquids via small (tsp volume) sips. 2. Pt's family/caregivers will benefit from education regarding safe swallowing strategies to decrease risk of aspiration and aspiration PNA . Long-term Goals 1. The pt will tolerate least restrictive diet to meet his nutrition and hydration needs.
[2023-01-03] MEDS: POTASSIUM CHLORIDE 20 MEQ TAB 40 MEQ PO (18:24)
[2023-01-03] MEDS: HYDRALAZINE 20 MG/ML VIAL 10 MG IV (20:39)
[2023-01-03] MEDS: levETIRAcetam 250 MG TABLET 1000 MG PO (20:52)
[2023-01-04] MEDS: POTASSIUM CHLORIDE 20 MEQ TAB 40 MEQ PO (00:59)
[2023-01-04 02:07] VITALS: BP 173/79; PULSE 92; RESP 18; TEMP 36.8; O2SAT 100
[2023-01-04 05:35] LABS: BUN Creatinine Ratio 8.1 (6-22); Blood Urea Nitrogen 9 mg/dL (9-20); Calcium 8.6 mg/dL (8.4-10.2); Carbon Dioxide 17 mmol/L (22-32); Chloride 115 mmol/L (98-107); Estimated Glomerular Filt Rate > 60 mL/min (>60); Glucose 81 mg/dL (80-110); HEMOLYSIS < 15 (0-50); Potassium 3.8 mmol/L (3.4-5.1); Sodium 139 mmol/L (137-145)
[2023-01-04] MEDS: ACETAMINOPHEN 325 MG TABLET 650 MG PO (05:39)
[2023-01-04] MEDS: PANTOPRAZOLE DR 20 MG TABLET PO (05:48)
[2023-01-04 06:22] VITALS: BP 180/89
[2023-01-04 06:26] VITALS: BP 180/89
[2023-01-04] MEDS: HYDRALAZINE 20 MG/ML VIAL 10 MG IV (06:26)
[2023-01-04 07:00] VITALS: BP 147/79; PULSE 105; RESP 17; TEMP 36.8; O2SAT 98
[2023-01-04 08:23] VITALS: BP 193/79; PULSE 105
[2023-01-04] MEDS: lisinopriL 20 MG TABLET PO (08:23)
[2023-01-04] MEDS: levETIRAcetam 250 MG TABLET 1000 MG PO (08:24)
[2023-01-04] MEDS: ENOXAPARIN 40 MG/0.4 ML SYRINGE SUBCUT (08:24)
--- NOTE | 2023-01-04 11:30 | CM.DPNOTE ---
DC Note Patient discharged today to [facility] via w/c van, pick up driver scheduled for 1330. Updated ALBARO Steele and provided report number. Discussed plan with spouse Fariba who is agreeable. Fariba plans to meet patient at [facility] this afternoon. Plan: Discharge to [facility] via w/c van. LIZA Mendez, kindly agreed to coordinate the remainder of this discharge- dc ppk to [facility]
--- NOTE | 2023-01-04 12:32 | PM.DS.1 ---
History of Present Illness History of Present Illness Date Patient Seen: 01/04/23 Time Patient Seen: 12:32 Chief complaint: weakness Narrative: Per admitting provider, Joseph Milan is a 77yo M with PMH of recurrent SBO, HTN, CVA, seizure disorder, and GERD who presented with abd pain and found to have SBO with ischemic bowel. Per developed acute abd pain yesterday with NV. Taken emergently to OR and had resection of small bowel plus part of cecum. Lactate 8.3 in ED. Hemodynamically stable. Procal 12.5. Admitted to ICU for post-op care. Discharge Providers Provider Date of admission: 12/28/22 15:18 Discharge Date: 01/04/23 Primary care physician: Gemini Nix MD Consults: 12/28/22 15:33 Consult to General Surgery Routine Comment: Consulting Provider: Kenny Hernandez Reason for consultation: ischemic bowel 12/29/22 15:38 Consult to Physical Therapy Evaluate & Treat Comment: Physician Instructions: Evaluate and Treat 12/30/22 13:06 Consult to Speech Therapy Evaluate & Treat Comment: Physician Instructions: Evaluate and treat 12/30/22 18:24 Consult to FURNACE CHARGER - Account Services Representative Routine Comment: needs SNF per PT 01/03/23 09:36 Consult to Occupational Therapy Evaluate & Treat Comment: Physician Instructions: Evaluate and treat Discharge provider: Teo Valladares DO Summary Hospital Course Discharge Diagnosis: Please see hospital course by problem list noted below. Hospital Course: # sepsis secondary to acute SBO with acute bowel ischemia, active with thrombocytopenia and FABRIZIO -s/p emergent ex-lap in OR with resection of 20cm small bowel and part of cecum, then reanastamosis. He had slow return of bowel function but at discharge is tolerating a diet and having bowel movements. -continued zosyn initially, then added doxy due to uptrending WBC but now improving WBC and normal. Stopped antibiotics after he completed 6 days of therapy. -follow up outpatient with general surgery per their recommendations. -blood cultures without growth. # lactic acidosis, resolved -8.3 on admission, likely due to ischemic gut -trended to normal with bowel resection, fluids, and antibiotics. # FABRIZIO, resolved -Cr 2.26 on admission, baseline 1 -improved with above management. -Cr now normal # HTN -initilally BP medications were held and then advanced after surgery. Now resumed on home medications on discharge. # history of CVA with left sided weakness -heldi Remeron, fluoxetine initially due to NPO, then resumed. Can resume upon discharge at previous dosing. # seizure disorder -continued keppra but IV initially then transitioned to oral keppra once he was tolerating oral intake. #acute blood loss anemia - presume secondary to surgical interventions. Hg stable in mid 8s and then stopped trending. Dispo: Transfer to SNF for ongoing therapies after above sepsis and major abdominal surgery. Time Spent with Patient Time spent: Greater than 30 minutes Exam Vital Signs (past 8 hours): - 01/04/23 06:22 01/04/23 06:26 01/04/23 07:00 Temperature 98.3 F Pulse Rate 105 H Respiratory Rate 17 Blood Pressure 180/89 H 180/89 H 147/79 H Pulse Oximetry 98 Oxygen Flow Rate 0 01/04/23 08:23 Temperature Pulse Rate 105 H Respiratory Rate Blood Pressure 193/79 H Pulse Oximetry Oxygen Flow Rate Oxygen Delivery Method Room Air Oxygen Flow Rate 0 Narrative Exam Narrative: GEN: no acute distress, mild cog impairment HEENT: moist mucous membranes, PERRL NECK: trachea midline, no JVD CV: regular rate and rhythm, no murmurs PULM: clear bilaterally ABD: soft, non-distended, no reported tenderness. EXT: warm and well perfused with no edema NEURO: sleeping, no focal deficits Objective Labs 01/02/23 04:25 01/04/23 05:00 Labs: Laboratory Results - last 24 hr 01/04/23 05:00 Sodium 139 Potassium 3.8 Chloride 115 H Carbon Dioxide 17 L BUN 9 Creatinine 1.11 Estimated GFR > 60 BUN/Creatinine Ratio 8.1 Glucose 81 Calcium 8.6 [facility] Medical History (Updated 12/28/22 @ 15:50 by Meghan Urbina MD) History of small bowel obstruction Iron deficiency anemia Seizure disorder Hypertension CVA, old, alterations of sensations Surgical History History of colonoscopy with polypectomy History of bowel resection History of appendectomy Family History Father Cancer Social History household members: spouse and children Smoking Status: Former smoker alcohol intake: never Discharge Plan Discharge Plan Patient Disposition: SNF Transfer to: [facility] and Healthcare Provider Discharge Comment: 77 M admitted with sepsis due to ischemic bowel, underwent bowel resection with return of bowel function. Completed antibiotics during admission. Transferred to SNF for ongoing therapies. Discharge orders & Medications Prescriptions: New acetaminophen 325 mg Tablet 650 mg PO Q6H PRN (Reason: Fever/Mild Pain (1-3)) Qty: 30 0RF oxycodone 5 mg Tablet 5 mg PO Q4HR PRN (Reason: Pain, Moderate (4-6)) 7 Days Qty: 20 0RF Continued loratadine 10 MG tablet 10 mg PO DAILY PRN (Reason: Allergy Symptoms) mirtazapine 30 MG tablet 30 mg PO BEDTIME lisinopril 20 mg tablet 20 mg PO DAILY Patient Comments: Hold for SBP < 110 or HR < 60 fluoxetine 10 mg capsule 30 mg PO DAILY felodipine 10 mg tablet extended release 24 hr 10 mg PO DAILY Patient Comments: Hold for SBP < 110 or HR < 60 ferrous sulfate 324 mg (65 mg iron) tablet,delayed release (DR/EC) 1 tab PO DAILY Disabled Parking Permit 1 ea miscellaneous DIRECTED omeprazole 20 mg capsule,delayed release(DR/EC) 20 mg PO DAILY levetiracetam 500 mg tablet 1,000 mg PO BID Qty: 0 0RF Follow up/Referrals: Gemini Nix MD [Primary Care Provider] - Discharge Health Status Precautions: [place] Diet/Activity/Treatments Diet: Diet as Tolerated Liquid consistency: Normal/Thin Food texture: Soft Diet comment: Soft, low fiber diet, dysphagia diet Level 5 minced and moist per NURSE PRACTITIONER HOME ASSESSMENTS Activity: As tolerated with no restrictions, no heavy lifting after abdominal surgery Special Rehabilitation Services Reason for rehabilitation: Post-operative therapy and Recovery r/t decondition Rehab type: Physical therapy, Occupational therapy and Speech therapy Visit Report/Discharge Packet Stand Alone Forms: Patient Portal/API Discharge Data Primary Care Provider: Gemini Nix Discharges patient from system. Discharge Date/Time: 01/04/23 13:43
== END 2023-01-04 13:43 | DRG 853 ==
LOC: ED 15:00 → AC 15:36 → ICU 18:30 → AC 12-29 12:07
PROVIDERS: Internal Medicine; Internal Medicine Critical Care Medicine; Surgery; Admitting Provider Student in an Organized Health Care Education/Training Program; Emergency Provider Emergency Medicine; PCP Internal Medicine; Referring Provider Emergency Medicine; Visit Provider Student in an Organized Health Care Education/Training Program
PROC: 0DBH0ZZ Excision of Cecum, Open Approach (ICD-10-PCS; CPT 49000; principal; 2022-12-28 15:45)
DX: A41.9 Sepsis, unspecified organism (principal); K55.019 Acute (reversible) ischemia of small intestine, extent unspecified; K56.609 Unspecified intestinal obstruction, unspecified as to partial versus complete obstruction; I69.954 Hemiplegia and hemiparesis following unspecified cerebrovascular disease affecting left non-dominant side; N17.9 Acute kidney failure, unspecified; I96 Gangrene, not elsewhere classified; E87.20 Acidosis, unspecified; K56.7 Ileus, unspecified; D62 Acute posthemorrhagic anemia; I10 Essential (primary) hypertension; G40.909 Epilepsy, unspecified, not intractable, without status epilepticus; K21.9 Gastro-esophageal reflux disease without esophagitis; R65.20 Severe sepsis without septic shock; D69.59 Other secondary thrombocytopenia; Z87.891 Personal history of nicotine dependence
CPT/HCPCS: 0241U; 36415; 36569; 36600; 44160; 71045; 74177; 80048; 80053; 81001; 82550; 82805; 82962; 83605; 83735; 84145; 84484; 85007; 85025; 85610; 85730; 87040; 87797; 92610; 93005; 96365; 96375; 97110; 97163; 97167; 97530; 99222; 99284; 99285; C9113; J0330; J0360; J1100; J1170; J1642; J1650; J1885; J1953; J2405; J2543; J2704; J2765; J3010; J3475; J3490; Q9967

== ENCOUNTER 2023-06-01 19:59 | Inpatient (IN) | payer MEDICARE, OTHER, SELFPAY ==
[2022-08-13 20:06] VITALS: BMI 24.7
[2023-06-01] VITALS (10 sets, daily range): BP systolic 144–175; BP diastolic 74–104; PULSE 94–129; RESP 16–22; TEMP 37.1; O2SAT 76–98; BMI 17.9
--- NOTE | 2023-06-01 20:56 | DI.RAD.S_ITS ---
PROCEDURE: XR CHEST 1V INDICATIONS: left hip pain fall TECHNIQUE: One view of the chest was acquired. COMPARISON: [facility], [place], XR CHEST FOR PICC 1V, 12/31/2022, 13:58. [facility], CR, XR CHEST 1V, 12/31/2022, 8:04. FINDINGS: Surgical changes and devices: None. Lungs and pleura: Lungs are clear. No pleural effusions or pneumothorax. Mediastinum: Mediastinal contours appear normal. Heart size is normal. Bones and chest wall: No suspicious bony lesions. Overlying soft tissues appear unremarkable. IMPRESSION: No acute cardiopulmonary abnormality is seen. Dictated by: Ankur Nguyễn M.D. on 06/01/2023 at 21:38 Approved by: Ankur Nguyễn M.D. on 06/01/2023 at 21:38
--- NOTE | 2023-06-01 20:56 | DI.RAD.S_ITS ---
PROCEDURE: XR HIP W PEL IF DONE LT 2V INDICATIONS: left hip pain fall TECHNIQUE: AP pelvis with lateral view(s) of the left hip(s). COMPARISON: [facility], ÁNGEL, XR HIP W PEL IF DONE RT 2V, 12/24/2017, 23:48. FINDINGS: Bones: No fractures or dislocations. Pelvic ring appears intact. No suspicious bony lesions. Diffusely decreased osseous mineralization. Degenerative changes of the visualized lower lumbar spine. Soft tissues: The visualized bowel gas pattern is normal. No suspicious soft tissue calcifications. IMPRESSION: No acute bony abnormality. Dictated by: Ankur Nguyễn M.D. on 06/01/2023 at 21:39 Approved by: Ankur Nguyễn M.D. on 06/01/2023 at 21:40
--- NOTE | 2023-06-01 20:57 | DI.CT.S_ITS ---
PROCEDURE: CT HEAD/BRAIN WO CON INDICATIONS: Trauma TECHNIQUE: Noncontrast 4.5 mm thick angled axial sections acquired from the foramen magnum to the vertex, with coronal and sagittal reformats. For radiation dose reduction, the following was used: automated exposure control, adjustment of mA and/or kV according to patient size. COMPARISON: , CT, CT HEAD/BRAIN WO CON, 11/09/2022, 12:50. FINDINGS: Image quality: Diagnostic. CSF spaces: Basal cisterns are patent. No extra-axial fluid collections. The ventricles are symmetric in size and shape. Brain: No intracranial bleeds or masses. There is cerebral volume loss for age, with resultant ventricular and sulcal prominence. There are periventricular and deep white matter chronic small vessel ischemic changes. There is intracranial internal carotid artery atherosclerosis. Skull and face: Calvarium and visualized facial bones appear intact, without suspicious lesions. Sinuses: Visualized sinuses and mastoids are clear. IMPRESSION: No acute intracranial pathology. Dictated by: Ankur Nguyễn M.D. on 06/01/2023 at 21:21 Approved by: Ankur Nguyễn M.D. on 06/01/2023 at 21:22
--- NOTE | 2023-06-01 21:59 | ED.FALL ---
HPI - Fall General Chief Complaint: Fall Stated Complaint: fell/lt leg inj Time Seen by Provider: 06/01/23 20:47 Source: patient Mode of arrival: Wheelchair History of Present Illness HPI Narrative: 77-year-old male history of CVAs, has reported short-term memory issues, history of seizures on Keppra no seizures for quite some time according to his . Patient had a fall today felt his left hip and has been complaining since then and then add vomiting. She states before that he was acting normally. Denies any recent fevers or chills. No chest pain, no shortness of breath no abdominal pain, has been stooling and urinating regularly. Main complaint has been pain of the left hip. Patient normally ambulates with a walker. Patient appears confused to myself but she states this is his normal baseline and he has memory issues. Medications include Keppra, fluoxetine, amlodipine, mirtazapine, aspirin 81 mg daily and omeprazole. She states seizure started in 2012 and has been well controlled. Has some left deficits from his prior seizure. Has had prior surgeries for bowel obstruction several years ago. No tobacco, alcohol or recreational drugs. Dr. Gemini Nix is his primary care provider. Related Data Home Medications Medication Instructions Recorded Confirmed Disabled Parking Permit 1 ea miscellaneous DIRECTED 12/25/17 01/18/23 felodipine 10 mg tablet,extended 10 mg PO DAILY 12/25/17 01/18/23 release 24 hr ferrous sulfate 324 mg (65 mg 1 tab PO DAILY 12/25/17 01/18/23 iron) tablet,delayed release fluoxetine 10 mg capsule 30 mg PO DAILY 12/25/17 01/18/23 lisinopril 20 mg tablet 20 mg PO DAILY 12/25/17 01/18/23 loratadine 10 mg tablet 10 mg PO DAILY PRN Allergy Symptoms 12/25/17 01/18/23 mirtazapine 30 mg tablet 30 mg PO BEDTIME 12/25/17 01/18/23 omeprazole 20 mg capsule,delayed 20 mg PO DAILY 05/15/21 01/18/23 release Previous Rx's Medication Instructions Recorded levetiracetam 500 mg tablet 1,000 mg (2 x 500 mg) PO BID #0 05/18/21 tabs acetaminophen 325 mg tablet 650 mg (2 x 325 mg) PO Q6H PRN 01/04/23 Fever/Mild Pain (1-3) #30 tabs Allergies Allergy/AdvReac Type Severity Reaction Status Date / Time vancomycin [VANCOMYCIN] Allergy Unknown VANCO Verified 06/01/23 20:37 ALLERGY ON [facility] FACE SHEET Review of Systems Review of Systems ROS Unobtainable: All systems reviewed & are unremarkable except as noted in HPI and below Patient History Medical History History of small bowel obstruction Iron deficiency anemia Seizure disorder Hypertension CVA, old, alterations of sensations Surgical History History of colonoscopy with polypectomy History of bowel resection History of appendectomy Family History Father Cancer Social History household members: spouse and children Smoking Status: Former smoker alcohol intake: never Smoking Status: Former smoker alcohol intake frequency: 0-2 drinks per day Substance Use Type: does not use Exam Narrative Exam Narrative: GEN: Thin elderly male alert and oriented self, answers some questions but not all. Denies any pain or issues currently but does indicate his hip hurts., patient appears to be in mild distress. HEENT: Atraumatic, pupils are equal round reactive to light, extraocular movements are intact, nares are clear, TMs are clear with no fluid, there is no conjunctival pallor. Throat is clear without any exudates, erythema, tonsillar enlargement or uvular deviation HEART: Regular rate and rhythm without murmur, clicks, rubs. No carotid bruits, pulses are equal in upper and lower extremities LUNGS:Lungs clear to auscultation, no wheezes, rales, crackles, chest moves symmetrically ABD:bowel sounds normal, soft, non-tender, no guarding, rebound, rigidity, no masses noted, no hepatosplenomegaly :No CVA tenderness MSCL: Left hip is tender. No muscle atrophy, does have movement of all 4 extremities but decreased in general. NEURO:CN 2-12 intact, sensation normal, Initial Vital Signs Initial Vital Signs: Vital Signs Temperature 98.8 F 06/01/23 20:37 Pulse Rate 119 H 06/01/23 20:37 Respiratory Rate 18 06/01/23 20:37 Blood Pressure 153/75 H 06/01/23 20:37 Pulse Oximetry 76 L 06/01/23 20:37 Oxygen Delivery Method Room Air 06/01/23 20:37 Course Orders Ordered: ED Orders 06/01/23 20:56 XR chest 1V Stat XR hip w pel if done LT 2V Stat UA Complete [Urinalysis and Microscopic] Stat Urine Drug Screen, Rapid Stat EKG-12 Lead Stat 06/01/23 20:57 CT head/brain wo con Stat 06/01/23 20:58 ABG [Arterial Blood Gas] Stat 06/01/23 22:25 Complete Blood Count AUTO DIFF Stat Comprehensive Metabolic Panel Stat Ethanol (ETOH) Stat Lactate (Lactic Acid) Stat Lipase Stat PTT Partial Thromboplastin Nav Stat Procalcitonin Stat Prothrombin Time INR Stat Troponin & CK Cardiac Panel Stat Type and Screen Stat 06/01/23 22:58 CT abdomen pelvis w con Stat CT angio chest PE protocol Stat 06/01/23 23:37 Blood Culture Stat 06/02/23 00:05 Urine Culture Stat Ondansetron HCl (Ondansetron 4 Mg/2 Ml Inj) 4 mg IV Q6HR PRN PRN Reason: Nausea And Vomiting Last Admin: 06/01/23 22:23 Dose: 4 mg Documented By: AB Discontinued Medications Diphtheria/Tetanus/Acell Pertussis (Tet,Diph,Pertuss(Acell),Vac/Pf 0.5 Ml Syringe) 0.5 ml IM .ONCE ONE Stop: 06/01/23 20:57 Last Admin: 06/02/23 00:22 Dose: Not Given Documented By: ROSANA Sodium Chloride (Normal Saline 0.9%) 1,000 mls @ 1,000 mls/hr IV BOLUS ONE Stop: 06/01/23 23:00 Last Infusion: 06/02/23 00:26 Dose: Infused Documented By: Admin: 06/01/23 22:23 Dose: 1,000 mls/hr Documented By: ROSANA Ceftriaxone Sodium 2,000 mg/ (Sodium Chloride) 100 mls @ 200 mls/hr IV NOW ONE Stop: 06/01/23 23:16 Last Admin: 06/01/23 23:53 Dose: Not Given Documented By: ROSANA Piperacillin Sod/Tazobactam (Sod 4.5 gm/ Sodium Chloride) 100 mls @ 200 mls/hr IV NOW ONE Stop: 06/01/23 23:27 Last Admin: 06/02/23 00:10 Dose: 200 mls/hr Documented By: ROSANA Sodium Chloride (Normal Saline 0.9%) 1,000 mls @ 1,000 mls/hr IV BOLUS ONE Stop: 06/02/23 00:25 Last Admin: 06/02/23 00:26 Dose: 1,000 mls/hr Documented By: ROSANA Vital Signs Vital signs: Vital Signs - 8 hr 06/01/23 20:37 06/01/23 20:51 06/01/23 20:52 Temperature 98.8 F Pulse Rate 119 H 129 H 121 H Respiratory Rate 18 Blood Pressure 153/75 H Pulse Oximetry 76 L Oxygen Delivery Method Room Air 06/01/23 20:52 06/01/23 21:00 06/01/23 21:00 Temperature Pulse Rate 111 H Respiratory Rate 22 Blood Pressure 175/104 H 159/87 H Pulse Oximetry 91 Oxygen Delivery Method 06/01/23 21:36 06/01/23 21:37 06/01/23 21:37 Temperature Pulse Rate 94 H 104 H Respiratory Rate Blood Pressure 148/78 H Pulse Oximetry 97 88 L Oxygen Delivery Method 06/01/23 22:00 06/01/23 22:00 06/01/23 22:30 Temperature Pulse Rate 104 H 103 H Respiratory Rate 19 22 Blood Pressure 144/74 H Pulse Oximetry 97 Oxygen Delivery Method 06/01/23 22:30 06/01/23 23:00 06/01/23 23:00 Temperature Pulse Rate 100 H Respiratory Rate 16 Blood Pressure 148/84 H 152/83 H Pulse Oximetry 98 Oxygen Delivery Method 06/01/23 23:34 06/02/23 00:00 06/02/23 00:30 Temperature Pulse Rate 109 H 110 H 103 H Respiratory Rate 20 19 19 Blood Pressure Pulse Oximetry 87 L 97 98 Oxygen Delivery Method 06/02/23 01:00 Temperature Pulse Rate 112 H Respiratory Rate 19 Blood Pressure Pulse Oximetry 96 Oxygen Delivery Method MDM - Fall Lab Data 06/01/23 22:25 06/01/23 22:25 Labs: Lab Results 06/01/23 06/01/23 06/02/23 Range/Units 20:58 22:25 00:05 WBC 21.5 H (4.5-11.0) X10^3/uL RBC 5.08 (4.5-5.9) X10^6/uL Hgb 14.6 (13.5-17.5) g/dL Hct 44.0 (41-53) % MCV 86.6 (80-100) fL MCH 28.8 (26-34) PG MCHC 33.3 (30-36) % RDW 15.8 H (11.6-14.8) % Plt Count 167 (150-400) X10^3/uL Neut % (Auto) Not Reportable Lymph % (Auto) Not Reportable [place] % (Auto) Not Reportable Eos % (Auto) Not Reportable Baso % (Auto) Not Reportable Lymph # (Auto) Not Reportable [place] # (Auto) Not Reportable Baso # (Auto) Not Reportable Total Counted 100 Seg Neutrophils % 92.0 H (38-70) % Band Neutrophils % 3.0 (3-7) % Lymphocytes % (Manual) 1.0 L (25-45) % Monocytes % (Manual) 4.0 (2-11) % Neutrophils # (Manual) 15843 H (8761-1592) /uL RBC Morphology Normal morphology PT 11.6 (9.4-12.5) SECONDS INR 1.0 (0.9-1.3) APTT 34 (25.1-36.5) SECONDS ABG Sample Site Right radial ABG pH 7.41 (7.35-7.45) ABG pCO2 33.2 L (35-45) mmHg ABG pO2 45 L* (80-100) mmHg ABG HCO3 21 L (23-27) mmol/L ABG Total CO2 22 L (23-27) mmol/L ABG O2 Saturation 100 (95-100) % ABG Base Excess -4.0 L (-2-3) mmol/L FiO2 32 Sodium 142 (137-145) mmol/L Potassium 4.5 (3.4-5.1) mmol/L Chloride 108 H (98-107) mmol/L Carbon Dioxide 25 (22-32) mmol/L BUN 31 H (9-20) mg/dL Creatinine 1.27 H (0.66-1.25) mg/dL Estimated GFR 59 L (>60) mL/min BUN/Creatinine Ratio 24.4 H (6-22) Glucose 114 H (80-110) mg/dL Lactate 4.6 H* (0.7-2.1) mmol/L Calcium 9.9 (8.4-10.2) mg/dL Total Bilirubin 0.7 (0.2-1.3) mg/dL AST 36 (17-59) IU/L ALT 34 (<50) IU/L Alkaline Phosphatase 102 (38-126) U/L Total Creatine Kinase 107 (55-170) U/L Troponin I 0.021 (0.01-0.034) ng/mL Total Protein 8.5 H (6.3-8.2) g/dL Albumin 4.4 (3.5-5.0) g/dL Globulin 4.1 (1.7-4.1) g/dL Albumin/Globulin Ratio 1.1 (1.0-2.8) Lipase 18 L (23-300) U/L Procalcitonin 2.48 H (<0.5) ng/mL Urine Color Yellow Urine Appearance Clear Urine pH 5.0 (4.5-8.0) Ur Specific [place] 1.025 (1.000-1.035) Urine Protein Trace H (Negative) Urine Glucose (UA) Negative (Negative) g/dL Urine Ketones Negative (NEGATIVE) Urine Occult Blood Trace-intact (Negative) Urine Nitrate Positive H (Negative) Urine Bilirubin Negative (NEGATIVE) Urine Urobilinogen 0.2 (0.2) E.U./dL Ur Leukocyte Esterase 1+ H (NEGATIVE) Urine RBC None seen (0-5/HPF) Urine WBC 30-100/hpf H (0-5/HPF) Ur Squamous Epith Cells 0-1 /hpf (0-5/HPF) Ur Transition Epith Cell 0-1/hpf (0-5/HPF) Urine Bacteria Many (>30) H (None) Ur Culture Indicated? Specimen cultured Vol Urine Centrifuged 10ml (spun) U Opiates 300ng/mL cut Negative (Negative) Ur Oxycodone Screen Negative (Negative) Urine Methadone Screen Negative (Negative) Ur Barbiturates Screen Negative (Negative) U Tricyclic Antidepress Negative (Negative) Ur Phencyclidine Scrn Negative (Negative) Ur Amphetamines Screen Negative (Negative) U Methamphetamines Scrn Negative (Negative) Ur MDMA Scrn (Ecstasy) Negative (Negative) U Benzodiazepines Scrn Negative (Negative) Urine Cocaine Screen Negative (Negative) U Marijuana (THC) Screen Negative (Negative) Urine Specific [place] (Normal) Ethyl Alcohol < 10 ( - 10) mg/dL Ur Creatinine (Normal) Blood Type O Positive Antibody Screen Negative 06/02/23 06/02/23 Range/Units 00:05 00:15 WBC (4.5-11.0) X10^3/uL RBC (4.5-5.9) X10^6/uL Hgb (13.5-17.5) g/dL Hct (41-53) % MCV (80-100) fL MCH (26-34) PG MCHC (30-36) % RDW (11.6-14.8) % Plt Count (150-400) X10^3/uL Neut % (Auto) Lymph % (Auto) [place] % (Auto) Eos % (Auto) Baso % (Auto) Lymph # (Auto) [place] # (Auto) Baso # (Auto) Total Counted Seg Neutrophils % (38-70) % Band Neutrophils % (3-7) % Lymphocytes % (Manual) (25-45) % Monocytes % (Manual) (2-11) % Neutrophils # (Manual) (8748-4208) /uL RBC Morphology PT (9.4-12.5) SECONDS INR (0.9-1.3) APTT (25.1-36.5) SECONDS ABG Sample Site ABG pH (7.35-7.45) ABG pCO2 (35-45) mmHg ABG pO2 (80-100) mmHg ABG HCO3 (23-27) mmol/L ABG Total CO2 (23-27) mmol/L ABG O2 Saturation (95-100) % ABG Base Excess (-2-3) mmol/L FiO2 Sodium (137-145) mmol/L Potassium (3.4-5.1) mmol/L Chloride (98-107) mmol/L Carbon Dioxide (22-32) mmol/L BUN (9-20) mg/dL Creatinine (0.66-1.25) mg/dL Estimated GFR (>60) mL/min BUN/Creatinine Ratio (6-22) Glucose (80-110) mg/dL Lactate 2.9 H (0.7-2.1) mmol/L Calcium (8.4-10.2) mg/dL Total Bilirubin (0.2-1.3) mg/dL AST (17-59) IU/L ALT (<50) IU/L Alkaline Phosphatase (38-126) U/L Total Creatine Kinase (55-170) U/L Troponin I (0.01-0.034) ng/mL Total Protein (6.3-8.2) g/dL Albumin (3.5-5.0) g/dL Globulin (1.7-4.1) g/dL Albumin/Globulin Ratio (1.0-2.8) Lipase (23-300) U/L Procalcitonin (<0.5) ng/mL Urine Color Urine Appearance Urine pH Normal (4.5-8.0) Ur Specific [place] (1.000-1.035) Urine Protein (Negative) Urine Glucose (UA) (Negative) g/dL Urine Ketones (NEGATIVE) Urine Occult Blood (Negative) Urine Nitrate (Negative) Urine Bilirubin (NEGATIVE) Urine Urobilinogen (0.2) E.U./dL Ur Leukocyte Esterase (NEGATIVE) Urine RBC (0-5/HPF) Urine WBC (0-5/HPF) Ur Squamous Epith Cells (0-5/HPF) Ur Transition Epith Cell (0-5/HPF) Urine Bacteria (None) Ur Culture Indicated? Vol Urine Centrifuged U Opiates 300ng/mL cut (Negative) Ur Oxycodone Screen (Negative) Urine Methadone Screen (Negative) Ur Barbiturates Screen (Negative) U Tricyclic Antidepress (Negative) Ur Phencyclidine Scrn (Negative) Ur Amphetamines Screen (Negative) U Methamphetamines Scrn (Negative) Ur MDMA Scrn (Ecstasy) (Negative) U Benzodiazepines Scrn (Negative) Urine Cocaine Screen (Negative) U Marijuana (THC) Screen (Negative) Urine Specific [place] Normal (Normal) Ethyl Alcohol ( - 10) mg/dL Ur Creatinine Normal (Normal) Blood Type Antibody Screen Imaging Data CT scan - head: Radiologist's Impression: Close Head CT (Signed) DelmaAnkur - 06/01/23 Hip X-Ray (Signed) 06/01/23 Chest X-Ray (Signed) 06/01/23 Chest X-Ray (Signed) NguyễnAnkur - 12/31/22 Chest X-Ray (Signed) Soy Moon 12/31/22 Telemetry Strips 12/28/22 Telemetry Strips 12/28/22 Abdomen/Pelvis CT (Signed) Param Gillis - 12/28/22 Chest X-Ray (Signed) Taylor Monson - 12/28/[address] (Signed) Joni Saez - 11/09/22 Telemetry Strips 08/13/[address] (Signed) Joni Saez - 08/13/22 Chest X-Ray (Signed) [place],Joni - 08/13/22 Brain MRI (Signed) Lashon Pimentel - 08/13/22 Renal Ultrasound (Signed) Palomo Rodriguez - 05/15/21 Cervical Spine MRI (Signed) Palomo Rodriguez - 05/15/21 Brain MRI (Signed) Palomo Rodriguez - 05/15/21 Telemetry Strips 05/15/21 Pelvis X-Ray (Signed) Jason Huitron - 05/14/21 Lumbar Spine X-Ray (Signed) Jason Huitron - 05/14/[address] (Signed) Jason Huitron - 05/14/21 Chest X-Ray (Signed) Jason Huitron - 05/14/[address] (Signed) Taylor Monson - 12/07/[address] (Signed) Taylor Monson - 12/07/20 Chest X-Ray (Signed) Diego Connolly - 12/07/[address] (Signed) Joni Saez - 11/11/20 Chest X-Ray (Signed) Fabricio Chahal - 11/11/20 Telemetry Strips 02/04/19 Telemetry Strips 02/04/19 Bladder Scan 02/04/[address] (Signed) Morales Schumacher - 02/04/19 Chest X-Ray (Signed) Lashon Pimentel - 02/04/19 Chest/Abdomen X-ray (Signed) Jason Huitron - 11/06/18 Telemetry Strips 11/06/18 Brain MRI (Signed) Fabricio Chahal - 09/02/18 Telemetry Strips 09/02/18 Telemetry Strips 09/02/[address] (Signed) Tonia Henao - 09/02/[address] (Signed) Tonia Henao - 12/25/17 Hip X-Ray (Signed) Agnieszka Henaoroger - 12/24/17 Launch?Image [address] [address] [address] Scan Report Signed Patient: Joseph Milan MR#: [id number] : 1945 Acct:[id number] Age/Sex: 77 / M Date of Service: 06/01/23 Loc: ED Accession Number: [id number] Procedure: CT head/brain wo con Ordering Provider: Meghan Riddle D.O. PROCEDURE: CT HEAD/BRAIN WO CON INDICATIONS: Trauma TECHNIQUE: Noncontrast 4.5 mm thick angled axial sections acquired from the foramen magnum to the vertex, with coronal and sagittal reformats. For radiation dose reduction, the following was used: automated exposure control, adjustment of mA and/or kV according to patient size. COMPARISON: [facility], CT, CT HEAD/BRAIN WO CON, 11/09/2022, 12:50. FINDINGS: Image quality: Diagnostic. CSF spaces: Basal cisterns are patent. No extra-axial fluid collections. The ventricles are symmetric in size and shape. Brain: No intracranial bleeds or masses. There is cerebral volume loss for age, with resultant ventricular and sulcal prominence. There are periventricular and deep white matter chronic small vessel ischemic changes. There is intracranial internal carotid artery atherosclerosis. Skull and face: Calvarium and visualized facial bones appear intact, without suspicious lesions. Sinuses: Visualized sinuses and mastoids are clear. IMPRESSION: No acute intracranial pathology. Dictated by: Aknur Nguyễn M.D. on 06/01/2023 at 21:21 Approved by: Ankur Nguyễn M.D. on 06/01/2023 at 21:22 Chest x-ray: Radiologist's Impression: Close Head CT (Signed) Ankur Nguyễn - 06/01/23 Hip X-Ray (Signed) Ankur Nguyễn - 06/01/23 Chest X-Ray (Signed) DelmaAnkur - 06/01/23 Chest X-Ray (Signed) Ankur Nguyễn - 12/31/22 Chest X-Ray (Signed) Soy Moon - 12/31/22 Telemetry Strips 12/28/22 Telemetry Strips 12/28/22 Abdomen/Pelvis CT (Signed) Param Gillis - 12/28/22 Chest X-Ray (Signed) Taylor Monson - 12/28/[address] (Signed) Joni Saez - 11/09/22 Telemetry Strips 08/13/[address] (Signed) SeJoni aceves - 08/13/22 Chest X-Ray (Signed) Joni Saez - 08/13/22 Brain MRI (Signed) Lashon Pimentel - 08/13/22 Renal Ultrasound (Signed) Rodriguez,Palomo - 05/15/21 Cervical Spine MRI (Signed) Rodriguez,Palomo - 05/15/21 Brain MRI (Signed) Michael,Palomo - 05/15/21 Telemetry Strips 05/15/21 Pelvis X-Ray (Signed) Jason Huitron - 05/14/21 Lumbar Spine X-Ray (Signed) Jason Huitron - 05/14/[address] (Signed) Jason Huitron - 05/14/21 Chest X-Ray (Signed) Jason Huitron - 05/14/[address] (Signed) Taylor Monson - 12/07/[address] (Signed) Taylor Monson - 12/07/20 Chest X-Ray (Signed) Diego Connolly - 12/07/[address] (Signed) Joni Saez - 11/11/20 Chest X-Ray (Signed) Fabricio Chahal - 11/11/20 Telemetry Strips 02/04/19 Telemetry Strips 02/04/19 Bladder Scan 02/04/[address] (Signed) Morales Schumacher - 02/04/19 Chest X-Ray (Signed) Lashon Pimentel - 02/04/19 Chest/Abdomen X-ray (Signed) Jason Huitron - 11/06/18 Telemetry Strips 11/06/18 Brain MRI (Signed) Fabricio Chahal - 09/02/18 Telemetry Strips 09/02/18 Telemetry Strips 09/02/[address] (Signed) Tonia Henao - 09/02/[address] (Signed) Tonia Henao - 12/25/17 Hip X-Ray (Signed) Tonia Henao - 12/24/17 [address] [place] [address] CT Scan Report Signed Patient: Joseph Milan MR#: [id number] : 1945 Acct:[id number] Age/Sex: 77 / M Date of Service: 06/01/23 Loc: ED Accession Number: [id number] Procedure: CT head/brain wo con Ordering Provider: Meghan Riddle D.O. PROCEDURE: CT HEAD/BRAIN WO CON INDICATIONS: Trauma TECHNIQUE: Noncontrast 4.5 mm thick angled axial sections acquired from the foramen magnum to the vertex, with coronal and sagittal reformats. For radiation dose reduction, the following was used: automated exposure control, adjustment of mA and/or kV according to patient size. COMPARISON: [facility], [place], CT HEAD/BRAIN WO CON, 11/09/2022, 12:50. FINDINGS: Image quality: Diagnostic. CSF spaces: Basal cisterns are patent. No extra-axial fluid collections. The ventricles are symmetric in size and shape. Brain: No intracranial bleeds or masses. There is cerebral volume loss for age, with resultant ventricular and sulcal prominence. There are periventricular and deep white matter chronic small vessel ischemic changes. There is intracranial internal carotid artery atherosclerosis. Skull and face: Calvarium and visualized facial bones appear intact, without suspicious lesions. Sinuses: Visualized sinuses and mastoids are clear. IMPRESSION: No acute intracranial pathology. Dictated by: Ankur Nguyễn M.D. on 06/01/2023 at 21:21 Approved by: Ankur Nguyễn M.D. on 06/01/2023 at 21:22 hip xray: Radiologist's Impression: [address] [address] XRay Report Signed Patient: Joseph Milan MR#: [id number] : 1945 Acct:[id number] Age/Sex: 77 / M Date of Service: 06/01/23 Loc: ED Accession Number: [id number] Procedure: XR hip w pel if done LT 2V Ordering Provider: Meghan Riddle D.O. PROCEDURE: XR HIP W PEL IF DONE LT 2V INDICATIONS: left hip pain fall TECHNIQUE: AP pelvis with lateral view(s) of the left hip(s). COMPARISON: [facility], CR, XR HIP W PEL IF DONE RT 2V, 12/24/2017, 23:48. FINDINGS: Bones: No fractures or dislocations. Pelvic ring appears intact. No suspicious bony lesions. Diffusely decreased osseous mineralization. Degenerative changes of the visualized lower lumbar spine. Soft tissues: The visualized bowel gas pattern is normal. No suspicious soft tissue calcifications. IMPRESSION: No acute bony abnormality. Dictated by: Ankur Nguyễn M.D. on 06/01/2023 at 21:39 Approved by: Ankur Nguyễn M.D. on 06/01/2023 at 21:40 CT scan - chest: Radiologist's Impression: Close Chest CTA (Signed) Alex Nguyễny - 06/01/23 Abdomen/Pelvis CT (Signed) Nguyễn - 06/01/[address] (Signed) Nguyễn - 06/01/23 Hip X-Ray (Signed) DelmaAnkur - 06/01/23 Chest X-Ray (Signed) DelmaAnkur - 06/01/23 Chest X-Ray (Signed) Alex Nguyễny - 12/31/22 Chest X-Ray (Signed) SaraiSoy - 12/31/22 Telemetry Strips 12/28/22 Telemetry Strips 12/28/22 Abdomen/Pelvis CT (Signed) Param Gillis - 12/28/22 Chest X-Ray (Signed) Taylor Monson - 12/28/[address] (Signed) Joni Saez - 11/09/22 Telemetry Strips 08/13/[address] (Signed) Joni Saez - 08/13/22 Chest X-Ray (Signed) Joni Saez - 08/13/22 Brain MRI (Signed) Lashon Pimentel - 08/13/22 Renal Ultrasound (Signed) Palomo Rodriguez - 05/15/21 Cervical Spine MRI (Signed) Palomo Rodriguez - 05/15/21 Brain MRI (Signed) Palomo Rodriguez - 05/15/21 Telemetry Strips 05/15/21 Pelvis X-Ray (Signed) Jason Huitron - 05/14/21 Lumbar Spine X-Ray (Signed) Jason Huitron - 05/14/[address] (Signed) Jason Huitron - 05/14/21 Chest X-Ray (Signed) Jason Huitron - 05/14/[address] (Signed) IonaTaylor - 12/07/[address] (Signed) Taylor Monson - 12/07/20 Chest X-Ray (Signed) Diego Connolly - 12/07/[address] (Signed) Fe Saeze - 11/11/20 Chest X-Ray (Signed) Fabricio Chahal - 11/11/20 Telemetry Strips 02/04/19 Telemetry Strips 02/04/19 Bladder Scan 02/04/[address] (Signed) Luis Alberto Schumacherwn - 02/04/19 Chest X-Ray (Signed) Lashon Pimentel - 02/04/19 Chest/Abdomen X-ray (Signed) Jason Huitron - 11/06/18 Telemetry Strips 11/06/18 Brain MRI (Signed) Fabricio Chahal - 09/02/18 Telemetry Strips 09/02/18 Telemetry Strips 09/02/[address] (Signed) Tonia Henao - 09/02/[address] (Signed) Tonia Henao - 12/25/17 Hip X-Ray (Signed) Tonia Henao - 12/24/17 [place] [address] CT Scan Report Signed Patient: Joseph Milan MR#: [id number] : 1945 Acct:[id number] Age/Sex: 77 / M Date of Service: 06/01/23 Loc: ED Accession Number: [id number] Procedure: CT angio chest PE protocol Ordering Provider: Meghan Riddle D.O. PROCEDURE: CT ANGIO CHEST PE PROTOCOL INDICATIONS: fall, hypoxia TECHNIQUE: After the administration of intravenous contrast, 2 mm thick sections acquired from the pulmonary apices to the posterior costophrenic angles. 3-dimensional maximum intensity projection (MIP) coronal and sagittal reformats were then acquired through the thorax. For radiation dose reduction, the following was used: automated exposure control, adjustment of mA and/or kV according to patient size. COMPARISON: None. FINDINGS: Image quality: Diagnostic. Pulmonary arteries: Pulmonary arteries are normal in size, and demonstrate no intraluminal filling defects to suggest central pulmonary embolism. Lower Neck: No enlarged lymph nodes. Thyroid: No thyroid nodules which require sonographic follow up, per consensus guidelines. Axillae: No enlarged lymph nodes. Chest Wall: Unremarkable. Bones: Diffusely decreased osseous mineralization. Degenerative changes of the spine. Moderate compression deformities of the T7 and T8 vertebral bodies. Compression or the lower thoracic spine are stable. Lungs and Pleura: Diffuse interlobular septal thickening. Mild centrilobular emphysematous changes. Linear atelectasis versus scarring within the bilateral lower lobes, right middle lobe and lingula. Trace bilateral pleural effusions. Heart: Heart size is normal. Severe coronary artery calcifications. No pericardial effusion. Thoracic Vessels: No aortic aneurysm. Atherosclerotic vascular calcifications. Mediastinum and Tonie: No enlarged lymph nodes. Esophagus: No wall thickening. No hiatal hernia. Upper Abdomen: Please refer to separately dictated CT of the abdomen. IMPRESSION: No pulmonary embolus. No focal pulmonary consolidations. Diffuse interlobular septal thickening and trace bilateral pleural effusions, may represent pulmonary edema. Moderate compression arteries of the T7 and T8 vertebral bodies are age indeterminate, favored to be chronic in etiology. Dictated by: Ankur Nguyễn M.D. on 06/01/2023 at 23:51 Approved by: Ankur Nguyễn M.D. on 06/01/2023 at 23:56 CT scan - abdomen/pelvis: Radiologist's Impression: [place] [address] CT Scan Report Signed Patient: Joseph Milna MR#: [id number] : 1945 Acct:[id number] Age/Sex: 77 / M Date of Service: 06/01/23 Loc: ED Accession Number: [id number] Procedure: CT abdomen pelvis w con Ordering Provider: Meghan Riddle D.O. PROCEDURE: CT ABDOMEN PELVIS W CON INDICATIONS: fall, hip pain TECHNIQUE: After the administration of intravenous contrast, axial sections acquired from the lung bases to the pubic symphysis. Coronal and sagittal reformats were performed. For radiation dose reduction, the following was used: automated exposure control, adjustment of mA and/or kV according to patient size. COMPARISON: [facility], CT, CT ABDOMEN PELVIS W CON, 12/28/2022, 13:51. FINDINGS: Image quality: Diagnostic. Lower Chest: Trace bilateral pleural effusions. Severe coronary artery calcifications. ABDOMEN: Liver: No solid mass. Gallbladder: No radiopaque gallstones or wall thickening. Biliary ducts: No biliary dilation. Pancreas: No ductal dilation. Spleen: Atrophic spleen with calcifications. Adrenal Glands: No adrenal nodules. Kidneys and Ureters: No hydronephrosis. No solid mass. No complex renal cystic lesion which requires follow up. Stomach and Bowel: Normal colonic caliber, without significant wall thickening. Resection of the right hemicolon. Peritoneum: No abnormal intraperitoneal fluid. No free air. Ventral Wall: No significant ventral hernia. Abdominal Nodes: No retroperitoneal or mesenteric adenopathy by size criteria. Vessels: Aorta and inferior vena cava are normal in size. Atherosclerotic vascular calcifications. PELVIS: Pelvic Organs: Unremarkable. Bladder: No bladder wall thickening, accounting for underdistention. Pelvic Nodes: No enlarged lymph nodes. Miscellaneous: No inguinal hernias are seen. Bones: No aggressive osseous abnormality. Small cortical step-off of the lateral subcapital left femoral head, concerning for mildly displaced fracture. Diffusely decreased osseous mineralization. Degenerative changes of the spine. Multilevel compression deformities are stable compared to prior. IMPRESSION: 1. Small cortical step-off of the lateral subcapital left femoral head, concerning for mildly displaced fracture. 2. Trace bilateral pleural effusions. 3. No acute intra-abdominal abnormalities. 4. Diffusely decreased osseous mineralization with multilevel vertebral body compression deformities, stable compared to prior. 5. Additional chronic findings are stable compared to prior and described above. Dictated by: Ankur Nguyễn M.D. on 06/01/2023 at 23:45 Approved by: Ankur Nguyễn M.D. on 06/01/2023 at 23:51 ECG Data Attestation: I personally reviewed and interpreted this ECG as follows: Interpretation: Right bundle-branch block, rate of 102 KS 182 QRS of 120 QTC of 508. No acute ST elevation. Priors show RBBB. MDM Narrative Medical decision making narrative: 77-year-old male who presents with ground level fall, left hip pain but is also hypoxic. Did have some emesis does not appear to have aspirated does not appear to have a lot of significant respiratory distress but on ABG does show low PaO2 Patient's workup including head CT was negative hip x-ray does not show obvious fracture but there is some questionable change on the left. Chest x-ray is negative. Labs concerning for infection show white count of 21, normal hemoglobin, platelets are 167 leftward shift with 92% segmented neutrophils. Coags are negative Creatinine 1.27 slightly up from prior 1.11, sodium and potassium are appropriate hurts 108 CO2 is 25 with a BUN of 31, lactate of 4.6- LFTs, negative troponin 0.021. Procalcitonin positive at 2.48 UA CTA shows no PE, no focal pulmonary consolidates diffuse interlobular septal thickening and trace bilateral pleural effusions, moderate compression fractures of T7-T[address] abdomen pelvis shows small cortical step-off lateral subcapital left femoral head concerning for mildly displaced fracture trace bilateral pleural effusions and diffusely decreased osseous mineralization multilevel stable compared to prior with no acute intra-abdominal changes. No additional vomiting in the department. Patient was weaned down to 3 L became hypoxic again and turned back up to 6 he has been maintaining its out level. Patient appears to have left femoral fracture. Also suspect more pneumonia with interlobular septal thickening, hypoxia white count with positive procalcitonin. Patient did receive fluids, continued with oxygen, patient was covered with antibiotics. Consulted Dr. Zhou, orthopedic surgery: will look at images, and callback [id number]. Dr. Zhou callback [id number], does appear fractured. Plan for OR but likely not tomorrow secondary to other medical issues, possibly Sunday. Consulted Dr. Whalen, telehospitalist: accepts for inpatient. Discussed orthopedics plan surgery in next 1-2 days, unlikely today. Discharge Plan Departure Patient Disposition: Admitted As Inpatient Clinical Impression: Closed hip fracture, Pneumonia Admit Date/Time: 06/02/23 01:09 Admit Provider: Tex Whalen
[2023-06-01] MEDS: SODIUM CHLORIDE 0.9% 1,000 ML 1000 ML IV (22:23)
[2023-06-01] MEDS: ONDANSETRON 4 MG/2 ML INJ IV (22:23)
[2023-06-01 22:28] LABS: PCO2 ABG 33.2 mmHg (35-45); pH ABG 7.41 (7.35-7.45)
[2023-06-01 22:29] LABS: HCO3 ABG 21 mmol/L (23-27); PO2 ABG 45 mmHg (80-100); TCO2 ABG 22 mmol/L (23-27)
[2023-06-01 22:30] LABS: Allen Test for ABG Passed? Yes, Passed; Blood Gas Collection Site Right Radial; Fractionated Inspired Oxygen 32; Oxygen Saturation ABG 100 % (95-100)
[2023-06-01 22:37] LABS: Hemoglobin 14.6 g/dL (13.5-17.5); Mean Corpuscular HGB Conc 33.3 % (30-36); Mean Corpuscular Hemoglobin 28.8 PG (26-34); Mean Corpuscular Volume 86.6 fL (80-100); Platelet Count 167 X10^3/uL (150-400); Red Blood Cell Count 5.08 X10^6/uL (4.5-5.9); Red Cell Distribution Width 15.8 % (11.6-14.8); White Blood Cell Count 21.5 X10^3/uL (4.5-11.0)
[2023-06-01 22:39] LABS: Add Manual Diff / Slide Review YES; Prothrombin Time 11.6 SECONDS (9.4-12.5)
[2023-06-01 22:42] LABS: PTT Partial Thromboplastin Tim 34 SECONDS (25.1-36.5)
[2023-06-01 22:46] LABS: Albumin 4.4 g/dL (3.5-5.0); Albumin Globulin Ratio 1.1 (1.0-2.8); Alkaline Phosphatase 102 U/L (38-126); Aspartate Aminotransferase 36 IU/L (17-59); BUN Creatinine Ratio 24.4 (6-22); Bilirubin Total 0.7 mg/dL (0.2-1.3); Blood Urea Nitrogen 31 mg/dL (9-20); Calcium 9.9 mg/dL (8.4-10.2); Carbon Dioxide 25 mmol/L (22-32); Chloride 108 mmol/L (98-107); Creatine Kinase 107 U/L (55-170); Estimated Glomerular Filt Rate 59 mL/min (>60); Globulin 4.1 g/dL (1.7-4.1); Glucose 114 mg/dL (80-110); HEMOLYSIS < 15 (0-50); Lipase 18 U/L (23-300); Potassium 4.5 mmol/L (3.4-5.1); Sodium 142 mmol/L (137-145); Total Protein 8.5 g/dL (6.3-8.2)
[2023-06-01 22:51] LABS: Neutrophils Absolute Manual 20425 /uL (3000-5900); Total Cells Counted 100
[2023-06-01 22:52] LABS: Alanine Aminotransferase 34 IU/L (<50); RBC Morphology Normal Morphology
[2023-06-01 22:58] LABS: Troponin I 0.021 ng/mL (0.01-0.034)
--- NOTE | 2023-06-01 22:58 | DI.CT.S_ITS ---
PROCEDURE: CT ANGIO CHEST PE PROTOCOL INDICATIONS: fall, hypoxia TECHNIQUE: After the administration of intravenous contrast, 2 mm thick sections acquired from the pulmonary apices to the posterior costophrenic angles. 3-dimensional maximum intensity projection (MIP) coronal and sagittal reformats were then acquired through the thorax. For radiation dose reduction, the following was used: automated exposure control, adjustment of mA and/or kV according to patient size. COMPARISON: None. FINDINGS: Image quality: Diagnostic. Pulmonary arteries: Pulmonary arteries are normal in size, and demonstrate no intraluminal filling defects to suggest central pulmonary embolism. Lower Neck: No enlarged lymph nodes. Thyroid: No thyroid nodules which require sonographic follow up, per consensus guidelines. Axillae: No enlarged lymph nodes. Chest Wall: Unremarkable. Bones: Diffusely decreased osseous mineralization. Degenerative changes of the spine. Moderate compression deformities of the T7 and T8 vertebral bodies. Compression or the lower thoracic spine are stable. Lungs and Pleura: Diffuse interlobular septal thickening. Mild centrilobular emphysematous changes. Linear atelectasis versus scarring within the bilateral lower lobes, right middle lobe and lingula. Trace bilateral pleural effusions. Heart: Heart size is normal. Severe coronary artery calcifications. No pericardial effusion. Thoracic Vessels: No aortic aneurysm. Atherosclerotic vascular calcifications. Mediastinum and Tonie: No enlarged lymph nodes. Esophagus: No wall thickening. No hiatal hernia. Upper Abdomen: Please refer to separately dictated CT of the abdomen. IMPRESSION: No pulmonary embolus. No focal pulmonary consolidations. Diffuse interlobular septal thickening and trace bilateral pleural effusions, may represent pulmonary edema. Moderate compression arteries of the T7 and T8 vertebral bodies are age indeterminate, favored to be chronic in etiology. Dictated by: Ankur Nguyễn M.D. on 06/01/2023 at 23:51 Approved by: Ankur Nguyễn M.D. on 06/01/2023 at 23:56
--- NOTE | 2023-06-01 22:58 | DI.CT.S_ITS ---
PROCEDURE: CT ABDOMEN PELVIS W CON INDICATIONS: fall, hip pain TECHNIQUE: After the administration of intravenous contrast, axial sections acquired from the lung bases to the pubic symphysis. Coronal and sagittal reformats were performed. For radiation dose reduction, the following was used: automated exposure control, adjustment of mA and/or kV according to patient size. COMPARISON: [facility], CT, CT ABDOMEN PELVIS W CON, 12/28/2022, 13:51. FINDINGS: Image quality: Diagnostic. Lower Chest: Trace bilateral pleural effusions. Severe coronary artery calcifications. ABDOMEN: Liver: No solid mass. Gallbladder: No radiopaque gallstones or wall thickening. Biliary ducts: No biliary dilation. Pancreas: No ductal dilation. Spleen: Atrophic spleen with calcifications. Adrenal Glands: No adrenal nodules. Kidneys and Ureters: No hydronephrosis. No solid mass. No complex renal cystic lesion which requires follow up. Stomach and Bowel: Normal colonic caliber, without significant wall thickening. Resection of the right hemicolon. Peritoneum: No abnormal intraperitoneal fluid. No free air. Ventral Wall: No significant ventral hernia. Abdominal Nodes: No retroperitoneal or mesenteric adenopathy by size criteria. Vessels: Aorta and inferior vena cava are normal in size. Atherosclerotic vascular calcifications. PELVIS: Pelvic Organs: Unremarkable. Bladder: No bladder wall thickening, accounting for underdistention. Pelvic Nodes: No enlarged lymph nodes. Miscellaneous: No inguinal hernias are seen. Bones: No aggressive osseous abnormality. Small cortical step-off of the lateral subcapital left femoral head, concerning for mildly displaced fracture. Diffusely decreased osseous mineralization. Degenerative changes of the spine. Multilevel compression deformities are stable compared to prior. IMPRESSION: 1. Small cortical step-off of the lateral subcapital left femoral head, concerning for mildly displaced fracture. 2. Trace bilateral pleural effusions. 3. No acute intra-abdominal abnormalities. 4. Diffusely decreased osseous mineralization with multilevel vertebral body compression deformities, stable compared to prior. 5. Additional chronic findings are stable compared to prior and described above. Dictated by: Ankur Nguyễn M.D. on 06/01/2023 at 23:45 Approved by: Ankur Nguyễn M.D. on 06/01/2023 at 23:51
[2023-06-01 23:01] LABS: Ethanol (ETOH) < 10 mg/dL
[2023-06-01 23:08] LABS: Lactate (Lactic Acid) 4.6 mmol/L (0.7-2.1)
[2023-06-01 23:31] LABS: Procalcitonin 2.48 ng/mL (<0.5)
[2023-06-02] VITALS (11 sets, daily range): BP systolic 120–164; BP diastolic 63–96; PULSE 92–112; RESP 16–19; TEMP 36.4–37.3; O2SAT 90–100; BMI 17.9
[2023-06-02 00:04] LABS: Reflexed Lactate in 2 Hours Y
[2023-06-02] MEDS: PIPERACILLIN/TAZO 4.5 GM in SODIUM CHLORIDE 0.9% 100 ML IV (00:10)
[2023-06-02 00:21] LABS: Ur Creatinine Normal (Normal); Ur Specific Gravity Normal (Normal); Urine pH Normal (Normal)
[2023-06-02 00:22] LABS: Appearance Urine UA CLEAR; Bilirubin Urine UA NEGATIVE (NEGATIVE); Color Urine UA YELLOW; Glucose Urine UA NEGATIVE (Negative); Ketones Urine UA NEGATIVE (NEGATIVE); Leukocyte Esterase Urine UA 1+ (NEGATIVE); Nitrite Urine UA POSITIVE (Negative); Occult Blood Urine UA TRACE-INTACT (Negative); Protein Urine UA TRACE (Negative); Specific Gravity Urine UA 1.025 (1.000-1.035); UR Morphine/Opiate cutoff 300 Negative (Negative); Urine Amphetamines Negative (Negative); Urine Barbiturates Negative (Negative); Urine Benzodiazepines Negative (Negative); Urine Cocaine Negative (Negative); Urine MDMA Negative (Negative); Urine Methadone Negative (Negative); Urine Methamphetamines Negative (Negative); Urine Oxycodone Negative (Negative); Urine Phencyclidine Negative (Negative); Urine Tetrahydrocannabinol Negative (Negative); Urine Tricyclic Antidepressant Negative (Negative); Urobilinogen Urine UA 0.2 E.U./dL (0.2)
[2023-06-02] MEDS: SODIUM CHLORIDE 0.9% 1,000 ML 1000 ML IV (00:26)
[2023-06-02 00:32] LABS: Bacteria Urine Many (>30); Culture Indicated Urine Specimen Cultured; RBC Urine None Seen (0-5/HPF); Squamous Epithelial Cell Urine 0-1 /HPF (0-5/HPF); Transitional Epi Cells Urine 0-1/HPF (0-5/HPF); Urine Volume 10mL (spun); WBC Urine 30-100/HPF (0-5/HPF)
[2023-06-02 00:36] LABS: Lactate 2HR (Lactic Acid Rflx) 2.9 mmol/L (0.7-2.1)
[2023-06-02] MEDS: SODIUM CHLORIDE 0.45% 1,000 ML 100 ML IV (02:55)
--- NOTE | 2023-06-02 03:01 | P.HP_ITS ---
History of Present Illness History of Present Illness Date Patient Seen: 06/02/23 Time Patient Seen: 02:45 Chief complaint: fell/lt leg inj Narrative: 77 years old male with likely cognitive decline/dementia, CVA, hypertension, seizure disorder, bowel obstructions in the past was brought into the emergency room status post fall with left hip pain and vomiting. He is not a good historian and only able to relate his name. Unable to get a good history from the patient and family is not available at this time. Most of the history has been obtained from caregiver/chart review. Apparently on arrival, patient was also hypoxic and confused. CT scan of the brain shows no acute process. CT chest abdomen and pelvis was done that was negative for pulm embolism but does show interlobar septal thickening with trace bilateral pleural effusions with potential pulmonary edema and mildly displaced fracture of the subcapital left femoral head. Patient was given IV Zosyn with oxygen. Discussed with orthopedics and patient was admitted for further evaluation [facility] Medical History History of small bowel obstruction Iron deficiency anemia Seizure disorder Hypertension CVA, old, alterations of sensations Surgical History History of colonoscopy with polypectomy History of bowel resection History of appendectomy Family History Father Cancer Social History household members: spouse and children Smoking Status: Former smoker alcohol intake: never Meds Home Medications and Allergies Home Medications Medication Instructions Recorded Confirmed Type Disabled Parking Permit 1 ea miscellaneous DIRECTED 12/25/17 01/18/23 History felodipine 10 mg tablet,extended 10 mg PO DAILY 12/25/17 01/18/23 History release 24 hr ferrous sulfate 324 mg (65 mg 1 tab PO DAILY 12/25/17 01/18/23 History iron) tablet,delayed release fluoxetine 10 mg capsule 30 mg PO DAILY 12/25/17 01/18/23 History lisinopril 20 mg tablet 20 mg PO DAILY 12/25/17 01/18/23 History loratadine 10 mg tablet 10 mg PO DAILY PRN Allergy Symptoms 12/25/17 01/18/23 History mirtazapine 30 mg tablet 30 mg PO BEDTIME 12/25/17 01/18/23 History omeprazole 20 mg capsule,delayed 20 mg PO DAILY 05/15/21 01/18/23 History release levetiracetam 500 mg tablet 1,000 mg (2 x 500 mg) PO BID #0 05/18/21 01/18/23 Rx tabs acetaminophen 325 mg tablet 650 mg (2 x 325 mg) PO Q6H PRN 01/04/23 01/18/23 Rx Fever/Mild Pain (1-3) #30 tabs Allergies Allergy/AdvReac Type Severity Reaction Status Date / Time vancomycin [VANCOMYCIN] Allergy Unknown VANCO Verified 06/01/23 20:37 ALLERGY ON SNF FACE SHEET Review of Systems Review of Systems Narrative: Review of system is limited due to patient's poor cognition Exam Vital Signs (past 8 hours): - 06/01/23 20:37 06/01/23 20:51 06/01/23 20:52 Temperature 98.8 F Pulse Rate 119 H 129 H 121 H Respiratory Rate 18 Blood Pressure 153/75 H Pulse Oximetry 76 L Oxygen Delivery Method Room Air Oxygen Flow Rate 06/01/23 20:52 06/01/23 21:00 06/01/23 21:00 Temperature Pulse Rate 111 H Respiratory Rate 22 Blood Pressure 175/104 H 159/87 H Pulse Oximetry 91 Oxygen Delivery Method Oxygen Flow Rate 06/01/23 21:36 06/01/23 21:37 06/01/23 21:37 Temperature Pulse Rate 94 H 104 H Respiratory Rate Blood Pressure 148/78 H Pulse Oximetry 97 88 L Oxygen Delivery Method Oxygen Flow Rate 06/01/23 22:00 06/01/23 22:00 06/01/23 22:30 Temperature Pulse Rate 104 H 103 H Respiratory Rate 19 22 Blood Pressure 144/74 H Pulse Oximetry 97 Oxygen Delivery Method Oxygen Flow Rate 06/01/23 22:30 06/01/23 23:00 06/01/23 23:00 Temperature Pulse Rate 100 H Respiratory Rate 16 Blood Pressure 148/84 H 152/83 H Pulse Oximetry 98 Oxygen Delivery Method Oxygen Flow Rate 06/01/23 23:34 06/02/23 00:00 06/02/23 00:30 Temperature Pulse Rate 109 H 110 H 103 H Respiratory Rate 20 19 19 Blood Pressure Pulse Oximetry 87 L 97 98 Oxygen Delivery Method Oxygen Flow Rate 06/02/23 01:00 06/02/23 02:18 Temperature 99.1 F Pulse Rate 112 H 108 H Respiratory Rate 19 18 Blood Pressure 164/96 H Pulse Oximetry 96 93 Oxygen Delivery Method Oxygen Flow Rate 6 Oxygen Delivery Method Room Air Oxygen Flow Rate 6 Narrative Exam Narrative: Patient is confused. Decreased range of motion in the left hip. There entry decreased at the bases S1-S2 heard no S3 no S4 Objective Labs 06/01/23 22:25 06/01/23 22:25 Labs: Laboratory Results - last 24 hr 06/01/23 06/01/23 06/02/23 20:58 22:25 00:05 WBC 21.5 H RBC 5.08 Hgb 14.6 Hct 44.0 MCV 86.6 MCH 28.8 MCHC 33.3 RDW 15.8 H Plt Count 167 Neut % (Auto) Not Reportable Lymph % (Auto) Not Reportable [place] % (Auto) Not Reportable Eos % (Auto) Not Reportable Baso % (Auto) Not Reportable Lymph # (Auto) Not Reportable [place] # (Auto) Not Reportable Baso # (Auto) Not Reportable Total Counted 100 Seg Neutrophils % 92.0 H Band Neutrophils % 3.0 Lymphocytes % (Manual) 1.0 L Monocytes % (Manual) 4.0 Neutrophils # (Manual) 31335 H RBC Morphology Normal morphology PT 11.6 INR 1.0 APTT 34 ABG Sample Site Right radial ABG pH 7.41 ABG pCO2 33.2 L ABG pO2 45 L* ABG HCO3 21 L ABG Total CO2 22 L ABG O2 Saturation 100 ABG Base Excess -4.0 L FiO2 32 Sodium 142 Potassium 4.5 Chloride 108 H Carbon Dioxide 25 BUN 31 H Creatinine 1.27 H Estimated GFR 59 L BUN/Creatinine Ratio 24.4 H Glucose 114 H Lactate 4.6 H* Calcium 9.9 Total Bilirubin 0.7 AST 36 ALT 34 Alkaline Phosphatase 102 Total Creatine Kinase 107 Troponin I 0.021 Total Protein 8.5 H Albumin 4.4 Globulin 4.1 Albumin/Globulin Ratio 1.1 Lipase 18 L Procalcitonin 2.48 H Urine Color Yellow Urine Appearance Clear Urine pH 5.0 Ur Specific [place] 1.025 Urine Protein Trace H Urine Glucose (UA) Negative Urine Ketones Negative Urine Occult Blood Trace-intact Urine Nitrate Positive H Urine Bilirubin Negative Urine Urobilinogen 0.2 Ur Leukocyte Esterase 1+ H Urine RBC None seen Urine WBC 30-100/hpf H Ur Squamous Epith Cells 0-1 /hpf Ur Transition Epith Cell 0-1/hpf Urine Bacteria Many (>30) H Ur Culture Indicated? Specimen cultured Vol Urine Centrifuged 10ml (spun) U Opiates 300ng/mL cut Negative Ur Oxycodone Screen Negative Urine Methadone Screen Negative Ur Barbiturates Screen Negative U Tricyclic Antidepress Negative Ur Phencyclidine Scrn Negative Ur Amphetamines Screen Negative U Methamphetamines Scrn Negative Ur MDMA Scrn (Ecstasy) Negative U Benzodiazepines Scrn Negative Urine Cocaine Screen Negative U Marijuana (THC) Screen Negative Urine Specific [place] Ethyl Alcohol < 10 Ur Creatinine Blood Type O Positive Antibody Screen Negative 06/02/23 06/02/23 00:05 00:15 WBC RBC Hgb Hct MCV MCH MCHC RDW Plt Count Neut % (Auto) Lymph % (Auto) [place] % (Auto) Eos % (Auto) Baso % (Auto) Lymph # (Auto) [place] # (Auto) Baso # (Auto) Total Counted Seg Neutrophils % Band Neutrophils % Lymphocytes % (Manual) Monocytes % (Manual) Neutrophils # (Manual) RBC Morphology PT INR APTT ABG Sample Site ABG pH ABG pCO2 ABG pO2 ABG HCO3 ABG Total CO2 ABG O2 Saturation ABG Base Excess FiO2 Sodium Potassium Chloride Carbon Dioxide BUN Creatinine Estimated GFR BUN/Creatinine Ratio Glucose Lactate 2.9 H Calcium Total Bilirubin AST ALT Alkaline Phosphatase Total Creatine Kinase Troponin I Total Protein Albumin Globulin Albumin/Globulin Ratio Lipase Procalcitonin Urine Color Urine Appearance Urine pH Normal Ur Specific [place] Urine Protein Urine Glucose (UA) Urine Ketones Urine Occult Blood Urine Nitrate Urine Bilirubin Urine Urobilinogen Ur Leukocyte Esterase Urine RBC Urine WBC Ur Squamous Epith Cells Ur Transition Epith Cell Urine Bacteria Ur Culture Indicated? Vol Urine Centrifuged U Opiates 300ng/mL cut Ur Oxycodone Screen Urine Methadone Screen Ur Barbiturates Screen U Tricyclic Antidepress Ur Phencyclidine Scrn Ur Amphetamines Screen U Methamphetamines Scrn Ur MDMA Scrn (Ecstasy) U Benzodiazepines Scrn Urine Cocaine Screen U Marijuana (THC) Screen Urine Specific [place] Normal Ethyl Alcohol Ur Creatinine Normal Blood Type Antibody Screen Assessment & Plan Assessment & Plan narrative: 77 years old male with likely cognitive decline/dementia, CVA, hypertension, seizure disorder, bowel obstructions in the past was brought into the emergency room status post fall with left hip pain and vomiting. He is not a good historian and only able to relate his name. Unable to get a good history from the patient and family is not available at this time. Most of the history has been obtained from caregiver/chart review. Apparently on arrival, patient was also hypoxic and confused. CT scan of the brain shows no acute process. CT chest abdomen and pelvis was done that was negative for pulm embolism but does show interlobar septal thickening with trace bilateral pleural effusions with potential pulmonary edema and mildly displaced fracture of the subcapital left femoral head. Patient was given IV Zosyn with oxygen. Discussed with orthopedics and patient was admitted for further evaluation Hypoxemia with leukocytosis/concerns for pneumonia versus pulmonary edema the patient with a history of dementia status post fall with nausea and vomiting and concerns for aspiration. Treat the underlying possible aspiration pneumonia and to provide oxygen supplementation to maintain O2 saturation above 90%. Nebulizers as needed Infiltrate/possible pneumonia concerns for aspiration/leukocytosis. N.p.o. for now and continue IV Zosyn initiated in emergency room. Eventual evaluation by speech to rule out aspiration Left hip fracture status post fall. Currently hypoxemic with concerns for possible pulm edema versus aspiration. Medically optimized with IV antibiotics/oxygen supplementation. Does have underlying dementia as well. Patient is a high cardiac/pulmonary risk for left hip surgery Hypertension. May need to verify the home medications but in the past was on amlodipine/lisinopril. For now as needed IV hydralazine to keep the systolic under 160 Seizure disorder. Resume the home Keppra once the dose has been verified GERD resume the home PPI Chronic kidney disease. Creatinine is at 1.27 with a baseline at around 1.1. Monitor for now Cognitive decline/element of likely dementia. Supportive care DVT prophylaxis will be with Lovenox when cleared by orthopedics CODE STATUS is full for now pending input 5 family Patient will be admitted under inpatient status. Given the urinary tract infection with concern for sepsis in the setting of altered mental status, patient meets criteria for inpatient with expected length of stay greater than 2 midnights Patient was evaluated with the help of video communication device. Provider is located remotely in [facility]. Time spent this 11 minutes
[2023-06-02] MEDS: PIPERACILLIN/TAZO 3.375 GM in SODIUM CHLORIDE 0.9% 100 ML IV ×3 (06:10→23:10)
[2023-06-02] MEDS: HYDROCODONE/ACET 5/325 TABLET 1 TAB PO (07:51)
[2023-06-02] MEDS: MORPHINE 4 MG/ML INJ 2 MG IV (10:50)
--- NOTE | 2023-06-02 10:54 | PM.CN ---
History of Present Illness Consult details Date Patient Seen: 06/02/23 Time Patient Seen: 10:54 Chief complaint: fell/lt leg inj Reason for consult: left femoral neck fracture Narrative: Mr Milan is lying in bed, minimally responsive, no family present. Following info from ED and hospitalist notes: 77-year-old male history of CVAs, has reported short-term memory issues, history of seizures on Keppra no seizures for quite some time according to his . Suffered a GLF onto left hip yesterday, after which he c/o left hip pain and then started vomiting. Pts stated before that he was acting normally. Patient normally ambulates with a walker. states he has confusion and memory issues. Medications include Keppra, fluoxetine, amlodipine, mirtazapine, aspirin 81 mg daily and omeprazole. She states seizure started in 2012 and has been well controlled. Has some left deficits from his prior seizure. Has had prior surgeries for bowel obstruction several years ago; had ex lap w/small bowel resection by Dr Mcdonnell in December 2022. No tobacco, alcohol or recreational drugs. Dr. Gemini Nix is his primary care provider. CT scan of the brain showed no acute process. He was hypoxic on admission; CT chest abdomen and pelvis was done that was negative for pulm embolism but does show interlobar septal thickening with trace bilateral pleural effusions with potential pulmonary edema and mildly displaced fracture of the subcapital left femoral head. Dr Zhou was consulted for hip fracture. He is currently being treated w/ antibiotics and supplemental O2 for pulmonary edema vs aspiration pneumonia. Meds Home Medications and Allergies Home Medications Medication Instructions Recorded Confirmed Type Disabled Parking Permit 1 ea miscellaneous DIRECTED 12/25/17 01/18/23 History felodipine 10 mg tablet,extended 10 mg PO DAILY 12/25/17 01/18/23 History release 24 hr ferrous sulfate 324 mg (65 mg 1 tab PO DAILY 12/25/17 01/18/23 History iron) tablet,delayed release fluoxetine 10 mg capsule 30 mg PO DAILY 12/25/17 01/18/23 History lisinopril 20 mg tablet 20 mg PO DAILY 12/25/17 01/18/23 History loratadine 10 mg tablet 10 mg PO DAILY PRN Allergy Symptoms 12/25/17 01/18/23 History mirtazapine 30 mg tablet 30 mg PO BEDTIME 12/25/17 01/18/23 History omeprazole 20 mg capsule,delayed 20 mg PO DAILY 05/15/21 01/18/23 History release levetiracetam 500 mg tablet 1,000 mg (2 x 500 mg) PO BID #0 05/18/21 01/18/23 Rx tabs acetaminophen 325 mg tablet 650 mg (2 x 325 mg) PO Q6H PRN 01/04/23 01/18/23 Rx Fever/Mild Pain (1-3) #30 tabs Allergies Allergy/AdvReac Type Severity Reaction Status Date / Time vancomycin [VANCOMYCIN] Allergy Unknown VANCO Verified 06/01/23 20:37 ALLERGY ON SNF FACE SHEET Exam Vital Signs (past 8 hours): - 06/02/23 03:01 06/02/23 06:39 06/02/23 07:00 Temperature 98.4 F 98.4 F Pulse Rate 103 H 95 H Respiratory Rate 18 18 Blood Pressure 144/94 H 120/78 Pulse Oximetry 99 100 Oxygen Delivery Method Nasal Cannula Oxygen Flow Rate 6 6 06/02/23 08:00 06/02/23 09:11 Temperature 98.0 F Pulse Rate 93 H Respiratory Rate 18 Blood Pressure 124/72 Pulse Oximetry 100 99 Oxygen Delivery Method High Flow Nasal Cannula Oxygen Flow Rate 6 5 Oxygen Delivery Method High Flow Nasal Cannula Oxygen Flow Rate 5 Narrative Exam Narrative: Pt minimally responsive to questions, not cooperative w/ exam. He is cachectic and there does not appear to be any skin breakdown on the LLE. Objective Labs 06/01/23 22:25 06/01/23 22:25 Labs: Laboratory Results - last 24 hr 06/01/23 06/01/23 06/02/23 20:58 22:25 00:05 WBC 21.5 H RBC 5.08 Hgb 14.6 Hct 44.0 MCV 86.6 MCH 28.8 MCHC 33.3 RDW 15.8 H Plt Count 167 Neut % (Auto) Not Reportable Lymph % (Auto) Not Reportable [place] % (Auto) Not Reportable Eos % (Auto) Not Reportable Baso % (Auto) Not Reportable Lymph # (Auto) Not Reportable [place] # (Auto) Not Reportable Baso # (Auto) Not Reportable Total Counted 100 Seg Neutrophils % 92.0 H Band Neutrophils % 3.0 Lymphocytes % (Manual) 1.0 L Monocytes % (Manual) 4.0 Neutrophils # (Manual) 80555 H RBC Morphology Normal morphology PT 11.6 INR 1.0 APTT 34 ABG Sample Site Right radial ABG pH 7.41 ABG pCO2 33.2 L ABG pO2 45 L* ABG HCO3 21 L ABG Total CO2 22 L ABG O2 Saturation 100 ABG Base Excess -4.0 L FiO2 32 Sodium 142 Potassium 4.5 Chloride 108 H Carbon Dioxide 25 BUN 31 H Creatinine 1.27 H Estimated GFR 59 L BUN/Creatinine Ratio 24.4 H Glucose 114 H Lactate 4.6 H* Calcium 9.9 Total Bilirubin 0.7 AST 36 ALT 34 Alkaline Phosphatase 102 Total Creatine Kinase 107 Troponin I 0.021 Total Protein 8.5 H Albumin 4.4 Globulin 4.1 Albumin/Globulin Ratio 1.1 Lipase 18 L Procalcitonin 2.48 H Urine Color Yellow Urine Appearance Clear Urine pH 5.0 Ur Specific [place] 1.025 Urine Protein Trace H Urine Glucose (UA) Negative Urine Ketones Negative Urine Occult Blood Trace-intact Urine Nitrate Positive H Urine Bilirubin Negative Urine Urobilinogen 0.2 Ur Leukocyte Esterase 1+ H Urine RBC None seen Urine WBC 30-100/hpf H Ur Squamous Epith Cells 0-1 /hpf Ur Transition Epith Cell 0-1/hpf Urine Bacteria Many (>30) H Ur Culture Indicated? Specimen cultured Vol Urine Centrifuged 10ml (spun) U Opiates 300ng/mL cut Negative Ur Oxycodone Screen Negative Urine Methadone Screen Negative Ur Barbiturates Screen Negative U Tricyclic Antidepress Negative Ur Phencyclidine Scrn Negative Ur Amphetamines Screen Negative U Methamphetamines Scrn Negative Ur MDMA Scrn (Ecstasy) Negative U Benzodiazepines Scrn Negative Urine Cocaine Screen Negative U Marijuana (THC) Screen Negative Urine Specific [place] Ethyl Alcohol < 10 Ur Creatinine Blood Type O Positive Antibody Screen Negative 06/02/23 06/02/23 00:05 00:15 WBC RBC Hgb Hct MCV MCH MCHC RDW Plt Count Neut % (Auto) Lymph % (Auto) [place] % (Auto) Eos % (Auto) Baso % (Auto) Lymph # (Auto) [place] # (Auto) Baso # (Auto) Total Counted Seg Neutrophils % Band Neutrophils % Lymphocytes % (Manual) Monocytes % (Manual) Neutrophils # (Manual) RBC Morphology PT INR APTT ABG Sample Site ABG pH ABG pCO2 ABG pO2 ABG HCO3 ABG Total CO2 ABG O2 Saturation ABG Base Excess FiO2 Sodium Potassium Chloride Carbon Dioxide BUN Creatinine Estimated GFR BUN/Creatinine Ratio Glucose Lactate 2.9 H Calcium Total Bilirubin AST ALT Alkaline Phosphatase Total Creatine Kinase Troponin I Total Protein Albumin Globulin Albumin/Globulin Ratio Lipase Procalcitonin Urine Color Urine Appearance Urine pH Normal Ur Specific [place] Urine Protein Urine Glucose (UA) Urine Ketones Urine Occult Blood Urine Nitrate Urine Bilirubin Urine Urobilinogen Ur Leukocyte Esterase Urine RBC Urine WBC Ur Squamous Epith Cells Ur Transition Epith Cell Urine Bacteria Ur Culture Indicated? Vol Urine Centrifuged U Opiates 300ng/mL cut Ur Oxycodone Screen Urine Methadone Screen Ur Barbiturates Screen U Tricyclic Antidepress Ur Phencyclidine Scrn Ur Amphetamines Screen U Methamphetamines Scrn Ur MDMA Scrn (Ecstasy) U Benzodiazepines Scrn Urine Cocaine Screen U Marijuana (THC) Screen Urine Specific [place] Normal Ethyl Alcohol Ur Creatinine Normal Blood Type Antibody Screen PFSH Medical History History of small bowel obstruction Iron deficiency anemia Seizure disorder Hypertension CVA, old, alterations of sensations Surgical History History of colonoscopy with polypectomy History of bowel resection History of appendectomy Family History Father Cancer Social History household members: spouse and children Tobacco & Substance Use Smoking Status: Former smoker alcohol intake: never Assessment & Plan Assessment and plan (1) Closed hip fracture: Status: Acute Plan: Discussed case w/ Dr Valladares and Dr Zhou. Will need surgical fixation of left hip, but at this point optimization of his respiratory function takes precedence. Will make pt NPO at midnight for possible surgery tomorrow.
--- NOTE | 2023-06-02 12:05 | PM.HP.1 ---
History of Present Illness History of Present Illness Date Patient Seen: 06/02/23 Time Patient Seen: 09:00 Chief complaint: fell/lt leg inj Narrative: 77 years old male with cognitive decline/dementia (SLUMS 08/29) CVA, hypertension, seizure disorder, bowel obstructions in the past was brought into the emergency room status post fall with left hip pain and vomiting. He is not a good historian and only able to relate his name. Unable to get a good history from the patient and additional history remains unavailable today. Most of the history has been obtained from caregiver/chart review. Apparently on arrival, patient was also hypoxic and confused. CT scan of the brain shows no acute process. CT chest abdomen and pelvis was done that was negative for pulm embolism but does show interlobar septal thickening with trace bilateral pleural effusions with potential pulmonary edema and mildly displaced fracture of the subcapital left femoral head. Patient was given IV Zosyn with oxygen. Discussed with orthopedics and patient was admitted for further evaluation. Orthopedics plans for operiatve interventions tomorrow. He was taken off supplemental oxygen this morning and was able to maintain saturations above 90%. [facility] Medical History History of small bowel obstruction Iron deficiency anemia Seizure disorder Hypertension CVA, old, alterations of sensations Surgical History History of colonoscopy with polypectomy History of bowel resection History of appendectomy Family History Father Cancer Social History household members: spouse and children Smoking Status: Former smoker alcohol intake: never Meds Home Medications and Allergies Home Medications Medication Instructions Recorded Confirmed Type Disabled Parking Permit 1 ea miscellaneous DIRECTED 12/25/17 01/18/23 History felodipine 10 mg tablet,extended 10 mg PO DAILY 12/25/17 01/18/23 History release 24 hr ferrous sulfate 324 mg (65 mg 1 tab PO DAILY 12/25/17 01/18/23 History iron) tablet,delayed release fluoxetine 10 mg capsule 30 mg PO DAILY 12/25/17 01/18/23 History lisinopril 20 mg tablet 20 mg PO DAILY 12/25/17 01/18/23 History loratadine 10 mg tablet 10 mg PO DAILY PRN Allergy Symptoms 12/25/17 01/18/23 History mirtazapine 30 mg tablet 30 mg PO BEDTIME 12/25/17 01/18/23 History omeprazole 20 mg capsule,delayed 20 mg PO DAILY 05/15/21 01/18/23 History release levetiracetam 500 mg tablet 1,000 mg (2 x 500 mg) PO BID #0 05/18/21 01/18/23 Rx tabs acetaminophen 325 mg tablet 650 mg (2 x 325 mg) PO Q6H PRN 01/04/23 01/18/23 Rx Fever/Mild Pain (1-3) #30 tabs Allergies Allergy/AdvReac Type Severity Reaction Status Date / Time vancomycin [VANCOMYCIN] Allergy Unknown VANCO Verified 06/01/23 20:37 ALLERGY ON SNF FACE SHEET Review of Systems Review of Systems Narrative: Unable to perform given patient's current encephalopathy. Exam Vital Signs (past 8 hours): - 06/02/23 06:39 06/02/23 07:00 06/02/23 08:00 Temperature 98.4 F 98.0 F Pulse Rate 95 H 93 H Respiratory Rate 18 18 Blood Pressure 120/78 124/72 Pulse Oximetry 100 100 Oxygen Delivery Method Nasal Cannula Oxygen Flow Rate 6 6 06/02/23 09:11 Temperature Pulse Rate Respiratory Rate Blood Pressure Pulse Oximetry 99 Oxygen Delivery Method High Flow Nasal Cannula Oxygen Flow Rate 5 Oxygen Delivery Method High Flow Nasal Cannula Oxygen Flow Rate 5 Narrative Exam Narrative: GEN: no acute distress, slurs own name, not oriented. HEENT: moist mucous membranes, PERRL NECK: trachea midline, no JVD CV: regular rate and rhythm, no murmurs PULM: clear bilaterally ABD: soft, non-distended, no reported tenderness. EXT: warm and well perfused with no edema NEURO: no focal deficits Objective Labs 06/01/23 22:25 06/01/23 22:25 Labs: Laboratory Results - last 24 hr 06/01/23 06/01/23 06/02/23 20:58 22:25 00:05 WBC 21.5 H RBC 5.08 Hgb 14.6 Hct 44.0 MCV 86.6 MCH 28.8 MCHC 33.3 RDW 15.8 H Plt Count 167 Neut % (Auto) Not Reportable Lymph % (Auto) Not Reportable [place] % (Auto) Not Reportable Eos % (Auto) Not Reportable Baso % (Auto) Not Reportable Lymph # (Auto) Not Reportable [place] # (Auto) Not Reportable Baso # (Auto) Not Reportable Total Counted 100 Seg Neutrophils % 92.0 H Band Neutrophils % 3.0 Lymphocytes % (Manual) 1.0 L Monocytes % (Manual) 4.0 Neutrophils # (Manual) 12077 H RBC Morphology Normal morphology PT 11.6 INR 1.0 APTT 34 ABG Sample Site Right radial ABG pH 7.41 ABG pCO2 33.2 L ABG pO2 45 L* ABG HCO3 21 L ABG Total CO2 22 L ABG O2 Saturation 100 ABG Base Excess -4.0 L FiO2 32 Sodium 142 Potassium 4.5 Chloride 108 H Carbon Dioxide 25 BUN 31 H Creatinine 1.27 H Estimated GFR 59 L BUN/Creatinine Ratio 24.4 H Glucose 114 H Lactate 4.6 H* Calcium 9.9 Total Bilirubin 0.7 AST 36 ALT 34 Alkaline Phosphatase 102 Total Creatine Kinase 107 Troponin I 0.021 Total Protein 8.5 H Albumin 4.4 Globulin 4.1 Albumin/Globulin Ratio 1.1 Lipase 18 L Procalcitonin 2.48 H Urine Color Yellow Urine Appearance Clear Urine pH 5.0 Ur Specific [place] 1.025 Urine Protein Trace H Urine Glucose (UA) Negative Urine Ketones Negative Urine Occult Blood Trace-intact Urine Nitrate Positive H Urine Bilirubin Negative Urine Urobilinogen 0.2 Ur Leukocyte Esterase 1+ H Urine RBC None seen Urine WBC 30-100/hpf H Ur Squamous Epith Cells 0-1 /hpf Ur Transition Epith Cell 0-1/hpf Urine Bacteria Many (>30) H Ur Culture Indicated? Specimen cultured Vol Urine Centrifuged 10ml (spun) U Opiates 300ng/mL cut Negative Ur Oxycodone Screen Negative Urine Methadone Screen Negative Ur Barbiturates Screen Negative U Tricyclic Antidepress Negative Ur Phencyclidine Scrn Negative Ur Amphetamines Screen Negative U Methamphetamines Scrn Negative Ur MDMA Scrn (Ecstasy) Negative U Benzodiazepines Scrn Negative Urine Cocaine Screen Negative U Marijuana (THC) Screen Negative Urine Specific [place] Ethyl Alcohol < 10 Ur Creatinine Blood Type O Positive Antibody Screen Negative 06/02/23 06/02/23 00:05 00:15 WBC RBC Hgb Hct MCV MCH MCHC RDW Plt Count Neut % (Auto) Lymph % (Auto) [place] % (Auto) Eos % (Auto) Baso % (Auto) Lymph # (Auto) [place] # (Auto) Baso # (Auto) Total Counted Seg Neutrophils % Band Neutrophils % Lymphocytes % (Manual) Monocytes % (Manual) Neutrophils # (Manual) RBC Morphology PT INR APTT ABG Sample Site ABG pH ABG pCO2 ABG pO2 ABG HCO3 ABG Total CO2 ABG O2 Saturation ABG Base Excess FiO2 Sodium Potassium Chloride Carbon Dioxide BUN Creatinine Estimated GFR BUN/Creatinine Ratio Glucose Lactate 2.9 H Calcium Total Bilirubin AST ALT Alkaline Phosphatase Total Creatine Kinase Troponin I Total Protein Albumin Globulin Albumin/Globulin Ratio Lipase Procalcitonin Urine Color Urine Appearance Urine pH Normal Ur Specific [place] Urine Protein Urine Glucose (UA) Urine Ketones Urine Occult Blood Urine Nitrate Urine Bilirubin Urine Urobilinogen Ur Leukocyte Esterase Urine RBC Urine WBC Ur Squamous Epith Cells Ur Transition Epith Cell Urine Bacteria Ur Culture Indicated? Vol Urine Centrifuged U Opiates 300ng/mL cut Ur Oxycodone Screen Urine Methadone Screen Ur Barbiturates Screen U Tricyclic Antidepress Ur Phencyclidine Scrn Ur Amphetamines Screen U Methamphetamines Scrn Ur MDMA Scrn (Ecstasy) U Benzodiazepines Scrn Urine Cocaine Screen U Marijuana (THC) Screen Urine Specific [place] Normal Ethyl Alcohol Ur Creatinine Normal Blood Type Antibody Screen Assessment & Plan Assessment & Plan narrative: Sepsis with acute respiratory failure with hypoxia, elevated creatinine, acute metabolic encephalopathy secondary to either pneumonia or acute cystitis - acute respiratory failure is improved today, possible aspiration based on presenting imaging. - continue zosyn, UA positive and possible aspiration PNA on imaging. - consider PERSONNEL REPRESENTATIVE evaluation after improvement in encephalopathy, ordered for previous dysphagia diet. - follow up urine and blood cultures. - improved lactate on repeat, unclear why morning labs not drawn, will order another for tomorrow AM. He clinically appears improved this morning. Left hip fracture status post fall, pathologic due to osteoporosis - hold on surgery today, okay with plan for tomorrow after antibiotic initiation and stabilization of pulmonary status in setting of sepsis. - discussed recommendations with orthopedics team today. Hypertension. continue to hold home medications in setting of above sepsis. Previously on felodipine and lisinopril. Seizure disorder. Resume the home Keppra at 500 mg BID for now, pending med rec still though outpatient records he may be on 1000 mg BID GERD resume the home PPI Chronic kidney disease. Creatinine is at 1.27 with a baseline at around 1.1. Cognitive decline/element of likely dementia. Supportive care, previous SLUMS 08/29 but definitely appears decreased cognition from prior admission. Previously on mirtazpine, follow up with [employer] med list. CODE: Full Proxy: Fariba Milan, spouse DVT/VTE prophylaxis:?SCDs, hold prior to surgery. Dispo: admitted inpatient, will likely need SNF Discussed with orthopedics provider to coordinate optimal timing for fracture repair.
[2023-06-02] MEDS: levETIRAcetam 250 MG TABLET 500 MG PO (13:30)
--- NOTE | 2023-06-02 13:32 | CM.DANOTE ---
Patient is a 77 yo male, resident of [place], and was admitted on 06/02/23 today for GLF/Fx/Confusion. EMR was reviewed. Per MD, PMH includes recurrent SBO, HTN, CVA, seizure disorder, and GERD and cognitive impairment at baseline and poor historian and admitted for likely pneumonia, UTI and likely hip fx from GLF. PCP: Gemini Nix Payer: [employer] Per Ortho Consult, recommending surgical repair for pt's hip fx and working to improve pt's respirations and confirm consent by spouse due to pt's confusion and likely NPO at midnight for surgery Sun. SW attempted to meet with pt bedside, no family present, and pt able to state he is in pain but not able to fully participate in goal directed discussion. SW called spouse Fariba ([phone]) and explained role and she confirms patient lives w/her and family, uses a FWW at baseline and requires assist w/higher ADLs. Patient requires monitoring r/t cognitive impairment and poor safety awareness. Spouse states she and pt completed DPOA pwk previously and pt's medical DPOA has listed 1) herself 2) their son Gee. Spouse has not yet received an update from Ortho or Hospitalist but anticipated pt likely needing surgery. Patient has hx at [facility] and w[facility]. SW discussed likely need for SNF pending likely surgery and then PT/OT and SW updated spouse that [facility] might not be an option as currently they are not accepting any new admission at this time. Spouse states she is not sure she is interested in [facility] and SW explained next closest SNF would be [facility], [place], [facility]. Spouse will consider this and wait to see if pt has Ortho hip surgery tomorrow Sun. Spouse plans to be bedside later this afternoon around maybe [phone]. SW updated Hospitalist and RN. PASRR done in anticipation of SNF, will need MD signature and be faxed to PASRR coordinator due to depression. Plan: SW to follow closely for spouse to arrive bedside to give consent for Ortho surgery and then PT/OT to determine likely need for SNF before safe return home. Discharge Planning/Care Management CM Discharge Assessment Start: 06/02/23 13:28 Freq: Status: Active Protocol: Document 06/02/23 13:29 BF (Rec: 06/02/23 13:32 BF [id number]) Discharge Planning Assessment Assigned Radiological Defense Officer [place] DPOA/Assigned Designee Name 1) spouse 2) son Contact Information [phone] Advance Directives? Yes: Advance Directive DPOA Advance Directives on File No History Provided By Significant Other,Medical Record Has Patient been admitted in last 30 No days? Comment last admit in Dec 2022 and went to [facility] Prior Living Arrangements House Household Members spouse,children Type of transporation used prior to Relies on Others admit Independent with ADL's No Is patient alert and oriented? No: dementia/cog impairment Needs Assistance With Meal Prep,Managing Medications ,Home Chores / Shopping Caregiver for Another No DME Already Rented / Owned FWW / Walker Patient/Family Preference Retirement Facility Comment pending likely surgery and then PT/OT Barriers to Discharge No Discharge Plan Retirement Facility Transportation Arrangement Likely SNF facility van Additional Comment Pending Surgical intervention and then PT/OT If patient plan is SNF: Has PASSR been Yes completed? Medicare Choice List Provided Yes Medicare choice list reviewed on family electronic tablet with SNF/HH Preference Spouse reviewing. Preference [facility] but alerted her that they might not be accepting new admits Whiteboard Updated in Patient Room with Yes name and ext. # of Radiological Defense Officer Review Status In Process Please Provide Date Initial DC 06/02/23 Assessment Was Performed Next Review Type Continued Stay Review
[2023-06-02] MEDS: HYDROMORPHONE 1 MG INJ IV ×3 (13:35→18:44)
[2023-06-02 13:49] LABS: Add Manual Diff / Slide Review NO; Basophils Absolute Auto 100 /uL (0-100); Basophils Percent Auto 0.9 % (0-2); Eosinophils Absolute Auto 200 /uL (0-450); Eosinophils Percent Auto 1.7 % (2-4); Hematocrit 37.2 % (41-53); Hemoglobin 12.3 g/dL (13.5-17.5); Lymphocytes Absolute Auto 2000 /uL (1100-4500); Lymphocytes Percent Auto 14.4 % (25-40); Mean Corpuscular HGB Conc 33.2 % (30-36); Mean Corpuscular Hemoglobin 28.9 PG (26-34); Mean Corpuscular Volume 87.2 fL (80-100); Monocytes Absolute Auto 700 /uL (0-900); Monocytes Percent Auto 4.8 % (3-14); Neutrophils Absolute Auto 11000 /uL (1500-7000); Neutrophils Percent Auto 78.2 % (50-75); Platelet Count 124 X10^3/uL (150-400); Red Blood Cell Count 4.27 X10^6/uL (4.5-5.9); Red Cell Distribution Width 16.5 % (11.6-14.8); White Blood Cell Count 14.1 X10^3/uL (4.5-11.0)
[2023-06-02 13:53] LABS: INR 1.2 (0.9-1.3); Prothrombin Time 13.3 SECONDS (9.4-12.5)
[2023-06-02 13:58] LABS: BUN Creatinine Ratio 20.7 (6-22); Blood Urea Nitrogen 28 mg/dL (9-20); Calcium 8.7 mg/dL (8.4-10.2); Carbon Dioxide 23 mmol/L (22-32); Chloride 112 mmol/L (98-107); Estimated Glomerular Filt Rate 55 mL/min (>60); Glucose 92 mg/dL (80-110); HEMOLYSIS 26 (0-50); Magnesium 1.8 mg/dL (1.6-2.3); Potassium 4.3 mmol/L (3.4-5.1); Sodium 140 mmol/L (137-145)
[2023-06-02 14:07] LABS: NT-proBNP (BNP-Adult 18+) 8010 pg/mL (<450)
[2023-06-02] MEDS: levETIRAcetam 500 MG in SODIUM CHLORIDE 0.9% 100 ML 420 MG IV (21:07)
[2023-06-03] VITALS (18 sets, daily range): BP systolic 111–152; BP diastolic 66–92; PULSE 88–99; RESP 13–22; TEMP 36.1–37.3; O2SAT 91–100
--- NOTE | 2023-06-03 | DI.RAD.S_ITS ---
PROCEDURE: XR HIP W PEL IF DONE LT 2V INDICATIONS: ORIF HIP LEFT TECHNIQUE: 2 intraoperative fluoroscopic spot films COMPARISON: [facility], CT, CT ABDOMEN PELVIS W CON, 06/01/2023, 23:10. [facility], CR, XR HIP W PEL IF DONE LT 2V, 06/01/2023, 21:05. FINDINGS: Low resolution intraoperative fluoroscopic spot films show transfixed impacted femoral neck fracture with cannulated screws in good position. IMPRESSION: 1. Fluoroscopic guidance Approved by: Palomo Rodriguez M.D. on 06/03/2023 at 14:58
--- NOTE | 2023-06-03 04:02 | PC.NURSE ---
assistant shift supervisor: Patient is alert to voice, non-verbal, makes eye contact and occasionally makes groaning sounds when addressed, unable to determine orientation. FLACC score: 1-2. VSS, O2 saturation in mid 90's on 0.5L NC, desats to 88% on RA. Lung sounds are clear/diminished upon auscultation. Continuous tele monitoring in place, cardona in place. SCDs are on. IV in LAC running IV Zosyn. Q2 turning. Seizure precautions in place. Plan of care ongoing.
[2023-06-03] MEDS: PIPERACILLIN/TAZO 3.375 GM in SODIUM CHLORIDE 0.9% 100 ML IV ×2 (05:00→14:44)
[2023-06-03 06:52] LABS: Add Manual Diff / Slide Review NO; Basophils Absolute Auto 100 /uL (0-100); Basophils Percent Auto 0.7 % (0-2); Eosinophils Absolute Auto 300 /uL (0-450); Eosinophils Percent Auto 2.6 % (2-4); Hematocrit 34.1 % (41-53); Hemoglobin 11.4 g/dL (13.5-17.5); Lymphocytes Absolute Auto 1800 /uL (1100-4500); Lymphocytes Percent Auto 15.4 % (25-40); Mean Corpuscular HGB Conc 33.5 % (30-36); Mean Corpuscular Hemoglobin 29.1 PG (26-34); Mean Corpuscular Volume 86.8 fL (80-100); Monocytes Absolute Auto 600 /uL (0-900); Monocytes Percent Auto 5.2 % (3-14); Neutrophils Absolute Auto 8900 /uL (1500-7000); Neutrophils Percent Auto 76.1 % (50-75); Platelet Count 121 X10^3/uL (150-400); Red Blood Cell Count 3.93 X10^6/uL (4.5-5.9); Red Cell Distribution Width 16.6 % (11.6-14.8); White Blood Cell Count 11.7 X10^3/uL (4.5-11.0)
[2023-06-03 06:59] LABS: Lactate (Lactic Acid) 1.1 mmol/L (0.7-2.1)
[2023-06-03 07:01] LABS: Alanine Aminotransferase 19 IU/L (<50); Alkaline Phosphatase 71 U/L (38-126); Aspartate Aminotransferase 24 IU/L (17-59); BUN Creatinine Ratio 17.6 (6-22); Bilirubin Total 0.8 mg/dL (0.2-1.3); Blood Urea Nitrogen 28 mg/dL (9-20); Calcium 8.3 mg/dL (8.4-10.2); Carbon Dioxide 24 mmol/L (22-32); Chloride 113 mmol/L (98-107); Estimated Glomerular Filt Rate 45 mL/min (>60); Globulin 3.1 g/dL (1.7-4.1); Glucose 93 mg/dL (80-110); HEMOLYSIS < 15 (0-50); Magnesium 1.8 mg/dL (1.6-2.3); Potassium 3.8 mmol/L (3.4-5.1); Sodium 140 mmol/L (137-145); Total Protein 6.1 g/dL (6.3-8.2)
[2023-06-03] MEDS: levETIRAcetam 500 MG in SODIUM CHLORIDE 0.9% 100 ML 420 MG IV (09:59)
--- NOTE | 2023-06-03 10:36 | PM.PN.1 ---
Exam Vital Signs (past 8 hours): - 06/03/23 04:00 06/03/23 08:00 06/03/23 08:51 Temperature 97.9 F 97.3 F L Pulse Rate 95 H 95 H Respiratory Rate 20 16 Blood Pressure 122/70 123/66 Pulse Oximetry 93 91 95 Oxygen Delivery Method Nasal Cannula Oxygen Flow Rate 1 1 1 Oxygen Delivery Method Nasal Cannula Oxygen Flow Rate 1 Objective Labs 06/03/23 06:35 06/03/23 06:35 Labs: Laboratory Results - last 24 hr 06/02/23 06/03/23 13:40 06:35 WBC 14.1 H 11.7 H RBC 4.27 L 3.93 L Hgb 12.3 L 11.4 L Hct 37.2 L 34.1 L MCV 87.2 86.8 MCH 28.9 29.1 MCHC 33.2 33.5 RDW 16.5 H 16.6 H Plt Count 124 L 121 L Neut % (Auto) 78.2 H 76.1 H Lymph % (Auto) 14.4 L 15.4 L [place] % (Auto) 4.8 5.2 Eos % (Auto) 1.7 L 2.6 Baso % (Auto) 0.9 0.7 Neut # (Auto) 33371 H 8900 H Lymph # (Auto) 2000 1800 [place] # (Auto) 700 600 Eos # (Auto) 200 300 Baso # (Auto) 100 100 PT 13.3 H INR 1.2 Sodium 140 140 Potassium 4.3 3.8 Chloride 112 H 113 H Carbon Dioxide 23 24 BUN 28 H 28 H Creatinine 1.35 H 1.59 H Estimated GFR 55 L 45 L BUN/Creatinine Ratio 20.7 17.6 Glucose 92 93 Lactate 1.1 Calcium 8.7 8.3 L Magnesium 1.8 1.8 Total Bilirubin 0.8 AST 24 ALT 19 Alkaline Phosphatase 71 NT-Pro-B Natriuret Pep 8010 H Total Protein 6.1 L Albumin 3.0 L Globulin 3.1 Albumin/Globulin Ratio 1.0 PFSH Medical History History of small bowel obstruction Iron deficiency anemia Seizure disorder Hypertension CVA, old, alterations of sensations Surgical History History of colonoscopy with polypectomy History of bowel resection History of appendectomy Family History Father Cancer Social History household members: spouse and children Smoking Status: Former smoker alcohol intake: never Assessment & Plan Assessment & Plan narrative: Patient is medically optimized per Dr. Valladares. He is in no distress. There is baseline advanced dementia. Patient is able to indicate his left hip has pain. He is able to move BLE. He is neurovascularly intact BLE on exam. Verbal/emergency consent obtained from patien'ts (next of kin). Patient is consent for left hip ORIF with cannulated screw. Patient has minimumly displaced left femoral neck/subcapital fracture. Risks for surgery include but not limited to bleeding, infection, hardware complications, additional fracture, need for additional surgery, avascular necrosis of femoral head, arthritis, nonunion, malunion, loosening of hardware. Patient's understand and would like to proceed with surgery. I scheduled him for left femur ORIF with cannulated screws.
[2023-06-03] MEDS: LACTATED RINGERS 1,000 ML 42 ML IV (11:06)
--- NOTE | 2023-06-03 11:10 | SUR.OPER ---
Patient supine on padded [place] table, one arm on padded arm board at <90, other arm padded and secured with tape across patient's chest, both legs secured in padded traction boots and positioned per surgeon, padded post at patient's groin, pressure points checked and padded.
--- NOTE | 2023-06-03 11:12 | PM.PREOP ---
Pre-operative Note Interval Note History & Physical reviewed/Exam performed by Physician: Yes Changes to H&P: No H&P completed within 30 days and has changed as indicated here:: Consult note was done by Ginette Plaza, I agree with her assessment of patient's evaluation. Patient has left subcapital femoral neck fracture. Verbal/consent obtained from patient's , Fariba Milan with two physicians discussing with her both surgical and anesthesia risks and benefits. Patient's understand and consent to the surgery under general anesthesia. Patient is scheduled for emergent left femur ORIF.
--- NOTE | 2023-06-03 11:16 | PM.OP.1 ---
Operative Date/Time/Diagnoses Date of procedure: 06/03/23 Time of procedure: 11:30 Pre-op diagnosis: 1. Left femoral neck subcapital fracture Post-op diagnosis: same Procedure & Clinicians Procedure: 1. left femoral neck fracture open reduction internal fixation. Same procedure as scheduled: Yes Indications: Mr. Milan is a 77 yo M with history of ground level fall present with hypoxia, worsened delirium complicated with UTI and possible aspiration pneumonia. Patient is found to have a minimumly displaced left femoral neck subcaptial fracture on x-ray and CT of abd/pelvis. Patient has significant pain and is unable to weight bear to his LLE since the fall. He also has signficant pain just laying bed favoring his left side due to the left hip pain. Patient was previously an ambulator in his facility. After discussing risks and benefits with his next of kin, verbal consent was obtained with two physicians emergently since patient's does not drive and cannot come in for consent in person. Patient is scheduled for left femoral neck fracture ORIF. Surgeon: Anton Zhou Click Yes if Unassisted: Yes Anesthesia Type: General Operative Notes Closure Type: primary Specimen(s): none sent Prosthetic devices, grafts, tissues, transplants, or devices: S&N 7.0 cannulated screws Applied: catheter Blood products transfused: none Procedure in detail: Patient was seen in the preoperative area. Risks and benefits of the surgery was discussed with the patient. Informed consent was obtained from the patient and placed in the chart. Surgical site was marked. Patient was taken to the operative room. General anesthesia was administered. Prophylactic antibiotic was given to the patient less than 30 min before the incision was made. Patient was placed into a supine position on the fracture table. Patient's legs were placed into the leg lao and secured to the leg lao using straps Los bandage and [place]. Patient's skin was well padded using cast padding. Patient's hip was then prepped and draped in the sterile fashion. Time-out was performed at this time. Using the fracture table, a closed reduction maneuver was performed to the left femoral neck fracture. This was done by distracting internally rotating and adducting the left hip. Minimum force was required since the fracture was minimally displaced. After the fracture reduction was completed and confirmed with AP and lateral C-arm imaging, Patient's hip was then prepped and draped in the sterile fashion. A 3 in incision just below the greater trochanter was made on the lateral aspect of the patient's hip. Starting guidewire was inserted through the incision through the lateral cortex through the femoral neck into the femoral head. The fascia was incised in line with skin incision the targeting guide was inserted and docked onto the lateral aspect of the lateral cortex of the proximal femur and a guidewire was drilled through the lateral cortex into the femoral head through the femoral neck in the center location on both AP and lateral imaging. The initial guidewire was placed in the inferior portion of the femoral neck just superior to the cortex in order to gain additional purchase with harder bone in the subcortical region. The 2nd and 3rd pins were placed in the superior portion of the femoral neck 1 anterior 1 posterior and confirmed with AP and lateral C-arm imaging and making sure not to breach the subchondral bone with the tip of the guidewire. After all 3 guide pins were placed and confirmed with AP and lateral C-arm imaging for their placement, depth gauge was used to measure the length of the screws planned to be inserted. Length 100 mm 95mm and 90 mm screws were used with 16 mm of partially threaded tip. The screw tip was intentionally placed as close to the subchondral bone as possible in order to gain additional purchase as well as treating the subcapital nature of this femoral neck fracture. After all the hardware was placed, AP and lateral C-arm imaging was used to confirm placement of the hardware and reduction of the fracture. Good placement of the hardware and good reduction of the fracture was confirmed. The wound was then irrigated with sterile normal saline. The deep fascia was closed with 1-0 Vicryl, subcutaneous tissue was closed with 2-0 Vicryl and skin was closed with skin reyna. Sterile dressing was applied the patient's skin and patient was woken up from sedation and transferred to recovery room stable condition. Complications: none Post-operative Condition: stable Disposition: PACU Plan for aftercare: Admit to inpatient hospital back to Medicine service.
--- NOTE | 2023-06-03 12:17 | P.PN_ITS ---
Subjective Subjective Interval history: Patient still encephalopathic today, oriented to name but difficult to respond. Swallow diminished and transitioned to IV keppra. Wne to surgery today with orthopedics for femur repair. Exam Vital Signs (past 8 hours): - 06/03/23 08:00 06/03/23 08:51 06/03/23 11:00 Temperature 97.3 F L 98.6 F Pulse Rate 95 H 88 Respiratory Rate 16 13 Blood Pressure 123/66 120/82 Pulse Oximetry 91 95 95 Oxygen Delivery Method Nasal Cannula Room Air Oxygen Flow Rate 1 1 Oxygen Delivery Method Room Air Oxygen Flow Rate 1 Narrative Exam Narrative: GEN: no acute distress, slurs own name, not oriented. HEENT: moist mucous membranes, PERRL NECK: trachea midline, no JVD CV: regular rate and rhythm, no murmurs PULM: clear bilaterally ABD: soft, non-distended, no reported tenderness. EXT: warm and well perfused with no edema NEURO: no focal deficits Objective Labs 06/03/23 06:35 06/03/23 06:35 Labs: Laboratory Results - last 24 hr 06/01/23 06/02/23 06/03/23 22:25 13:40 06:35 WBC 14.1 H 11.7 H RBC 4.27 L 3.93 L Hgb 12.3 L 11.4 L Hct 37.2 L 34.1 L MCV 87.2 86.8 MCH 28.9 29.1 MCHC 33.2 33.5 RDW 16.5 H 16.6 H Plt Count 124 L 121 L Neut % (Auto) 78.2 H 76.1 H Lymph % (Auto) 14.4 L 15.4 L [place] % (Auto) 4.8 5.2 Eos % (Auto) 1.7 L 2.6 Baso % (Auto) 0.9 0.7 Neut # (Auto) 93559 H 8900 H Lymph # (Auto) 2000 1800 [place] # (Auto) 700 600 Eos # (Auto) 200 300 Baso # (Auto) 100 100 PT 13.3 H INR 1.2 Sodium 140 140 Potassium 4.3 3.8 Chloride 112 H 113 H Carbon Dioxide 23 24 BUN 28 H 28 H Creatinine 1.35 H 1.59 H Estimated GFR 55 L 45 L BUN/Creatinine Ratio 20.7 17.6 Glucose 92 93 Lactate 1.1 Calcium 8.7 8.3 L Magnesium 1.8 1.8 Total Bilirubin 0.8 AST 24 ALT 19 Alkaline Phosphatase 71 NT-Pro-B Natriuret Pep 8010 H Total Protein 6.1 L Albumin 3.0 L Globulin 3.1 Albumin/Globulin Ratio 1.0 Blood Type O Positive Antibody Screen Negative Crossmatch See Detail COUNTS INCLUDE 234 BEDS AT THE [facility] Medical History History of small bowel obstruction Iron deficiency anemia Seizure disorder Hypertension CVA, old, alterations of sensations Surgical History History of colonoscopy with polypectomy History of bowel resection History of appendectomy Family History Father Cancer Social History household members: spouse and children Smoking Status: Former smoker alcohol intake: never Assessment & Plan Assessment & Plan narrative: Sepsis with acute respiratory failure with hypoxia, elevated creatinine, acute metabolic encephalopathy secondary to either pneumonia or acute cystitis - acute respiratory failure is improved today, possible aspiration based on presenting imaging. - continue zosyn, UA positive and possible aspiration PNA on imaging. - will order BRAKE LINER evaluation today. - follow up urine and blood cultures. - improved lactate on repeat, now resolved at 1.1. Left hip fracture status post fall, pathologic due to osteoporosis - S/p operative repair today, discussed with orthopedics today. - discussed recommendations with orthopedics team today. - PT OT to start tomorrow. Hypertension. continue to hold home medications in setting of above sepsis. Previously on felodipine and lisinopril. Seizure disorder. Resume the home Keppra at 500 mg BID for now, pending med rec still though outpatient records he may be on 1000 mg BID GERD resume the home PPI AFBRIZIO on CKD - Cr up to 1.59. BNP at 8000 avoiding extra fluid but may need additional IV fluids today. Continue to monitor. Cognitive decline/element of likely dementia. Supportive care, previous SLUMS 08/29 but definitely appears decreased cognition from prior admission. Previously on mirtazpine, follow up with [employer] med list. CODE: Full Proxy: Fariba Milan, spouse DVT/VTE prophylaxis:?SCDs, hold prior to surgery. Dispo: admitted inpatient, will likely need SNF Discussed with orthopedics provider to coordinate optimal timing for fracture repair.
[2023-06-03] MEDS: BUPIVACAINE 0.25% (PF) 30 ML, EPINEPHrine 0.15 MG INJ (12:20)
[2023-06-03] MEDS: CEFAZOLIN 2 GM/100 ML PREMIX 100 ML IV ×2 (12:21→20:48)
--- NOTE | 2023-06-03 12:51 | CM.DPC ---
DCP Cont. Reviewed EMR and team rounds for status updates. Pt was taken this afternoon to surgery by Ortho for L-hip fixation surgery. Will need SNF at d/c, continue to monitor for SNF acceptance, [facility] not taking any new patients until mid next week due to Covid outbreak. KATHRYN estrada's signature, is looking at SNF rehab facilities, confirm w/her on Sunday and send referrals for review.
--- NOTE | 2023-06-03 15:15 | PC.NURSE ---
Pt alert to voice, tracking intermittently, with intermittent groaning at intervals at start of shift. Unable to assess fully d/t patient contractions, inability to communicate/follow commands. Pt down to OR, returned at 1350 with constant gurgle/groan on exhale. Attempted suction, pt pressed lips together and turned head away. Able to remove some fluids and repositioned patient. VSS on 3L (satting in mid 80s on 2L, mid 90s on 3L) O2 NC. Groaning reduced in frequency/intensity, patient resting comfortably.
[2023-06-03] MEDS: LACTATED RINGERS 1,000 ML 100 ML IV (17:24)
[2023-06-03] MEDS: LACTATED RINGERS 1,000 ML 21 ML IV (20:49)
[2023-06-03] MEDS: levETIRAcetam 1,000 MG in SODIUM CHLORIDE 0.9% 100 ML 440 MG IV (21:31)
[2023-06-03] MEDS: SODIUM CHLORIDE 0.9% 100 ML 144 ML (21:31)
[2023-06-04] VITALS (8 sets, daily range): BP systolic 141–167; BP diastolic 74–90; PULSE 70–92; RESP 16–19; TEMP 36.1–36.9; O2SAT 96–100
[2023-06-04] MEDS: CEFAZOLIN 2 GM/100 ML PREMIX 100 ML IV (04:55)
[2023-06-04 06:25] LABS: Add Manual Diff / Slide Review NO; Basophils Absolute Auto 0 /uL (0-100); Basophils Percent Auto 0.4 % (0-2); Eosinophils Absolute Auto 200 /uL (0-450); Eosinophils Percent Auto 1.9 % (2-4); Hematocrit 33.2 % (41-53); Hemoglobin 11.2 g/dL (13.5-17.5); Lymphocytes Absolute Auto 1600 /uL (1100-4500); Lymphocytes Percent Auto 16.4 % (25-40); Mean Corpuscular HGB Conc 33.6 % (30-36); Mean Corpuscular Hemoglobin 29.5 PG (26-34); Mean Corpuscular Volume 87.7 fL (80-100); Monocytes Absolute Auto 700 /uL (0-900); Monocytes Percent Auto 6.8 % (3-14); Neutrophils Absolute Auto 7400 /uL (1500-7000); Neutrophils Percent Auto 74.5 % (50-75); Platelet Count 105 X10^3/uL (150-400); Red Blood Cell Count 3.79 X10^6/uL (4.5-5.9); Red Cell Distribution Width 16.3 % (11.6-14.8); White Blood Cell Count 9.9 X10^3/uL (4.5-11.0)
[2023-06-04 06:41] LABS: Alanine Aminotransferase 24 IU/L (<50); Alkaline Phosphatase 85 U/L (38-126); Aspartate Aminotransferase 29 IU/L (17-59); BUN Creatinine Ratio 18.8 (6-22); Bilirubin Total 0.4 mg/dL (0.2-1.3); Blood Urea Nitrogen 22 mg/dL (9-20); Calcium 8.5 mg/dL (8.4-10.2); Carbon Dioxide 24 mmol/L (22-32); Chloride 113 mmol/L (98-107); Estimated Glomerular Filt Rate > 60 mL/min (>60); Globulin 3.1 g/dL (1.7-4.1); Glucose 103 mg/dL (80-110); HEMOLYSIS < 15 (0-50); Magnesium 1.8 mg/dL (1.6-2.3); Potassium 4.1 mmol/L (3.4-5.1); Sodium 140 mmol/L (137-145); Total Protein 6.1 g/dL (6.3-8.2)
[2023-06-04] MEDS: MAGNESIUM SULFATE 2 GM/50 ML PIGGYBACK IV (08:33)
[2023-06-04] MEDS: lisinopriL 20 MG TABLET PO (10:20)
[2023-06-04] MEDS: PANTOPRAZOLE DR 20 MG TABLET PO (10:20)
[2023-06-04] MEDS: CIPROFLOXACIN 250 MG TABLET 500 MG PO (10:32)
[2023-06-04] MEDS: levETIRAcetam 250 MG TABLET 1000 MG PO (10:36)
[2023-06-04] MEDS: FLUoxetine 10 MG CAPSULE 30 MG PO (10:37)
--- NOTE | 2023-06-04 10:49 | PT.IIE ---
Current Diagnoses Fracture of unspecified part of neck of unspecified femur, initial encounter for closed fracture (06/02/23) Unspecified fracture of head of left femur, initial encounter for closed fracture (06/02/23) Surgery Performed Operation Date: 06/03/23 10:00 Actual Procedures p ORIF Hip/Cannulated Screws(Left) - Anton Zhou MD Surgical History (Last Reviewed 06/02/23 @ 12:08 by Teo Valladares DO) History of appendectomy History of bowel resection History of colonoscopy with polypectomy Medical History (Last Reviewed 06/02/23 @ 12:08 by Teo Valladares DO) CVA, old, alterations of sensations History of small bowel obstruction Hypertension Iron deficiency anemia Seizure disorder Physical Therapy Inpatient Evaluation/Re-Eval M1 PT/OT-IP Prior Functional Status Start: 06/04/23 10:47 Freq: NEEDED Status: Active Protocol: Document 06/04/23 13:04 BLANE (Rec: 06/04/23 13:42 BLANE [id number]) Medical Review Prior Functional Status Diet/Fluid Consistency Pureed Communication unable to make needs known Mobility and Gait per chart review amb with FWW Activities of Daily Living and IADL's pt is poor historian, spouse not present, no conclusive information found during chart review Social History Household Members spouse,children Number of Stairs To Enter/Railing? Pt is poor historian. Chart review is inconclusive concerning pt's home environment. M1 PT/OT-IP Prior Functional Status Start: 06/04/23 13:03 Freq: NEEDED Status: Active Protocol: Document 06/04/23 10:49 LRN (Rec: 06/04/23 18:12 LRN [id number]) Medical Review Prior Functional Status Diet/Fluid Consistency Pureed Communication unable to make needs known Mobility and Gait per chart review amb with FWW Activities of Daily Living and IADL's pt is poor historian, spouse not present, no conclusive information found during chart review Social History Household Members spouse,children Number of Stairs To Enter/Railing? Pt is poor historian. Chart review is inconclusive concerning pt's home environment. M2 PT-IP Current Condition Start: 06/04/23 10:47 Freq: NEEDED Status: Active Protocol: Document 06/04/23 10:49 LRN (Rec: 06/04/23 18:12 LRN [id number]) Physical Therapy Current Condition Current Condition Evaluation Date 06/04/23 Treatment Diagnosis s/p L hip ORIF Onset Date 06/01/23 M3 PT-IP Subjective Start: 06/04/23 10:47 Freq: NEEDED Status: Active Protocol: Document 06/04/23 10:49 LRN (Rec: 06/04/23 18:12 LRN [id number]) Subjective Physical Therapy Visit Type Type Initial Evaluation Visit Start Time 10:49 Visit Stop Time 11:34 Notes OT present during most of evaluation. Discussion with nursing separate from OT. Physical Therapy Visit Comments Patient Comments Pt was non verbal. Responded with head nods yes to all questions; therefore unsure if response was appropriate of not. Pt was able to follow a few commands such as moving toes and over time straightening legs. Patient Goals Pt not able to verbilize goals . Therapy Pain Assessment Pain Present Pain Present Unable to Respond FLACC Pain Scale Face Occasional grimace/frown Legs Kicking or drawn up Activity Arching, rigid, jerking Cry No cry (awake or asleep) Consolability Content, relaxed FLACC Total 5 M4 PT-IP Mobility and Gait Start: 06/04/23 10:47 Freq: NEEDED Status: Active Protocol: Document 06/04/23 10:49 LRN (Rec: 06/04/23 18:12 LRN [id number]) PT-Bed Mobility Assessment Rolling Level of Assist Maximal Assistance,2 Person Assistance Supine to Sit Supine to Sit Maximum Assistance,2 Person Assistance,Head of Bed Elevated Sit to Supine Sit to Supine Maximum Assistance,2 Person Assistance,Head of Bed Elevated Scooting Scooting to Edge of Bed Dependent PT-Transfer Assessment Comments Mobility Comments Pt was not appropriate for transfer out of bed or standing due to low tolerance to transfer and sitting as noted by pt posture of slumping and leaning to L side . Pt not verbalizing agreement to mobilization. Gait Assessment Factors Limiting Gait Function Factors Limiting Gait Function Abnormal Tonal Influences, Decreased Activity Tolerance, Decreased Strength,Difficulty Following Directions,Limited Range of Motion,Pain,Poor Balance,Poor Safety Awareness Comments Gait Comments Pt not appropriate for ambulation. PT-Balance Assessment Sitting Balance and Reactions Static Sitting Balance Ability Fair Dynamic Sitting Balance Ability Poor Comments Other Balance Tests/Deviations/Treatment Pt not able to sit upright at : EOB without some support. He was able to place hands on bed for some support but he leaned heavy to the left side. Functional Assessments Other Functional Tests Performed Pt not appropriate for functional tests. M5 PT-IP Objective Assessments Start: 06/04/23 10:47 Freq: NEEDED Status: Active Protocol: Document 06/04/23 10:49 LRN (Rec: 06/04/23 18:12 LRN [id number]) Orientation Orientation/Cognition Level of Alertness Lethargic Comments Pt limited in ability to communicate with nods of heads . He is ble to follow a couple commands to move toes and delayed response to straighten his legs. Gross Range of Motion Upper Extremity ROM Impairments Pt not moving his UE's on command or during transfer. Lower Extremity ROM Assessment Bilaterally Impaired Impairments Pt not moving his LE's with transfers and once followed command to move toes. Strength Upper Extremity Strength Assessment Bilaterally Impaired Lower Extremity Strength Assessment Bilaterally Impaired Comments Strength Comments Pt was not able to follow commands to assess UE/LE strength. Other Assessments Other Other Assessments Pt's BP at start of tx ( sitting upright in bed) - 162/ 84; Sitting EOB - 161/88. Pt on 2L of O2 using nasal canula. Pt O2 saturation dropped to 54% during UE AAROM . SpO2 increased to 90's with vc to take deep breaths. End of treatment SpO2 - 92%. Nsg aware. M6 PT-IP Treatment Start: 06/04/23 10:47 Freq: NEEDED Status: Active Protocol: Document 06/04/23 10:49 LRN (Rec: 06/04/23 18:12 LRN [id number]) Physical Therapy Treatment Exercises Knee ROM Measurement LLE: L knee PROM 0-45 deg's. Other Treatments Other Treatment Performed Pt had no WBing limitations designated; therefore pt was not transferred out of bed. M7 PT-IP Assessment and Plan Start: 06/04/23 10:47 Freq: NEEDED Status: Active Protocol: Document 06/04/23 10:49 LRN (Rec: 06/04/23 18:12 LRN [id number]) PT Summary Assessment and Plan Potential Rehabilitation Potential Fair Status of Condition at Evaluation Evolving Summary Impairments Pain,ROM,Balance,Cognition,Bed Mobility,Transfers,Activity Tolerance Assessment Summary Pt is a 77 yo male who is s/p L hip ORIF after fall on 3/1/ 24. WBing precautions unknown . Pt is with cognitive decline/dementia, hx of CVA. He is not able to verbalize previous or current mobility status. It is unknown his PLOF if he was in a facility or living at home with his . was not available or present during time of evaluation. The pt is dependent with mobility, being max A with bed mobility and transfer to sitting at EOB. His balance is fair to poor with ability somewhat stay in position once placed although he tended to lean to surgical side. The pt did not show ability to move UE's/LE's. The pt will benefit from skilled physical therapy to promote improved activity tolerance and his level of independence, depending on how much he is able to participate in therapy. Further information on his PLOF and home status for placement would be beneficial. Goals Bed Mobility Goal Moderate Assistance Transfer Goal Moderate Assistance,Front Wheeled Walker Other Goals Stand pivot transfer bed to chair when WBing status is known. Frequency of Treatment Frequency Of Treatment Twice a Day Treatment Plan Physical Therapy Treatment Plan Bed Mobility Training,Transfer Training,Therapeutic Exercise ,Balance Retraining Other Recommendations and Next Treatment Sitting balance training only. Focus Precautions Other Precautions Waiting for WBing precautions to be identified before standing. Weight Bearing Status Allowed Weight Bearing Amount (enter % Unknown or #) (%) Recommendations To Nursing Amount of Assist Needed 2 Person Assist,Total Assistance,Mechanical Lift Discharge Recommendations PT Discharge Recommendations SNF Rehab Transportation Needs at Discharge Wheelchair/Cabulance
--- NOTE | 2023-06-04 12:19 | PC.NURSE ---
Patient was seen by ST this morning, diet changed to puree with thin liquids and medications as tolerated. Patient sat upright at 90 degrees to attempt to take medications with applesauce. Patient able to take a few bites of applesauce with some of his pills crushed (see MAR). Patient had very delayed swallowing and pocketing to left side of mouth. Not managing secretions, with drooling noted. Dr. Wade notified. Plan update for NPO at this time with MBS ordered. Continue to monitor.
--- NOTE | 2023-06-04 12:59 | ST.IPIE ---
Visit Care Team Role Provider Type Gemini Nix MD Primary Care Provider Non-Staff Specialty: Internal Medicine Address: [facility] [place], [address] Email: Anton Zhou MD Other Providers Physician Specialty: Orthopedics Orthopedic Surgery Address: [address] [place] [address], [address] Email: [email or web address] Emergency Provider Physician Referring Provider Specialty: Emergency Medicine Address: [address] [place] [address], [address] Email: [email or web address] Admit Provider Physician Attending Provider Specialty: Internal Medicine Address: [address] [place] [address], [facility] Fax: Email: Current Diagnoses Fracture of unspecified part of neck of unspecified femur, initial encounter for closed fracture (06/02/23) Unspecified fracture of head of left femur, initial encounter for closed fracture (06/02/23) Past Medical History (Last Reviewed 06/02/23 @ 12:08 by Teo Valladares DO) CVA, old, alterations of sensations (Medical) History of small bowel obstruction (Medical) w/ recurrence Hypertension (Medical) Iron deficiency anemia (Medical) Seizure disorder (Medical) ST IP Initial Evaluation 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 Teo Valladares Reason for Referral Dysphagia Setting Assessment Location Acute Care Visit Type Note Type Initial evaluation Next Note Type Next Note Type Treatment Note Patient Information Identification Type Name,ID Card History Per H&P: 77 years old male with cognitive decline/ dementia (UMS 08/29) CVA, hypertension, seizure disorder , bowel obstructions in the past was brought into the emergency room status post fall with left hip pain and vomiting. He is not a good historian and only able to relate his name. Unable to get a good history from the patient and additional history remains unavailable today. Most of the history has been obtained from caregiver/chart review. Apparently on arrival , patient was also hypoxic and confused. CT scan of the brain shows no acute process. CT chest abdomen and pelvis was done that was negative for pulm embolism but does show interlobar septal thickening with trace bilateral pleural effusions with potential pulmonary edema and mildly displaced fracture of the subcapital left femoral head. Patient was given IV Zosyn with oxygen. Discussed with orthopedics and patient was admitted for further evaluation. Orthopedics plans for operiatve interventions tomorrow. He was taken off supplemental oxygen this morning and was able to maintain saturations above 90% . PMHx significant for: History of small bowel obstruction Iron deficiency anemia Seizure disorder Hypertension CVA, old, alterations of sensations Pt referred for ST evaluation d/t possible aspiration PNA based on chest xray. Pt was put on full liquids, however is now NPO d/t nursing Pt with observed swallow difficulties . Chest CTA on 06/01/23 indicated: IMPRESSION: No pulmonary embolus. No focal pulmonary consolidations. Diffuse interlobular septal thickening and trace bilateral pleural effusions, may represent pulmonary edema. Moderate compression arteries of the T7 and T8 vertebral bodies are age indeterminate, favored to be chronic in etiology. Pt was last seen in the hospital by ST on 01/03/23 with diet recommendations IDDSI 5 and thin liquids. Subjective Observations Pt awake, alert, laying slightly reclined in bed. He was compliant with swallow eval and being positioned upright in bed with bed controls. He appeared minimially verbal and communicated primarily with head nods for yes and no. He was able to verbalized his first name, however reduced intelligibility. He demonstrated difficulties following commands, such as open mouth. Reported by Patient/Caregiver Other Symptoms Difficulty swallowing liquids, Difficulty swallowing solids Comment Pt was on full liquids and then NPO Current Diet NPO The IDDSI Framework Protocol: IDDSI.1 Objective Assessment Mental Status Cooperative,Confused,Lethargic Dentition Missing teeth Comment Pt exhibited difficulties following commands, such as open mouth, however ST suspects generalized weakness and reduced ROM for oromusculature. Food and Liquid Trials Position During Assessment Upright (90 degrees) Liquids Trialed Thin (IDDSI 0) Solid Trials Purred (IDDSI 4) Administration Type Straw,Dependent feeding Oral Impairment Moderately impaired Oral Phase Comments Pt presented with about 4 oz of thin water via straw and 2 oz of pudding via tsp. Pt required 100% feeding assistance. For water via straw, Pt exhibited weak lip seal around straw, however adequate suction with slight anterior spillage, extended ap transport. Pt with mild bolus holding with all trials and benefited from verbal cues to initiate propulsion of bolus into pharynx and also benefited from tactile/visual cue of next bite approaching his lips. For pudding Pt demonstrated weak lip seal around spoon, good oral acceptance and containment, bolus holding with extended ap transport. Pharyngeal Impairment Mildly impaired Pharyngeal Phase Comments For all trials Pt demonstrated suspected delay in swallow, no overt s/s of aspiration. Pt with audible swallow reflex with thin water. Fatigue/Endurance Mild fatigue Comment Pt consumed about 2 oz of pudding and was able to communicate he was done eating by shaking his head no The IDDSI Framework Protocol: IDDSI.1 Findings Swallowing Function Oropharyngeal phase dysphagia Severity of Swallow Impairment Moderately impaired Contributing Factors to Swallow Difficulty following Impairment directions Prognosis Fair Based on Cognitive status Impact on Safety and Functioning Risk for inadequate nutrition/ hydration Recommendations Instrumental Assessment No Swallowing Treatment Yes Frequency Daily while inpatient Recommended Solids Pureed (IDDSI 4) Recommended Liquids Thin (IDDSI 0) Other Recommendations ST recommends IDDSI 4 and IDDSI 0 with the below mentioned safe swallowing strategies. ST communicated recommendations with nursing. ST recommends Pt only to be fed when awake and alert and to cue Pt to swallow and go at a slow rate. ST recommends diet downgrade if changes in respiratory/medical status. Safety Precautions/Swallowing Reduce distractions,Remain Recommendations upright (90 degrees) during all oral intake,Upright position at least 30 minutes after meals,Small bites and sips when eating,Slow rate; swallow between bites, Alternate liquids and solids,1 to 1 feeding assistance, Strict oral care after intake, Check for pocketing Medication Recommendations As Tolerated Discharge Recommendations Home,alf facility, nursing home care facility,Other (comment) Comments 24-hr assistance/supervision; Dementia strategies Education Patient/Caregiver Education Family/caregivers require further education/training Goals Short-term Goals 1. The pt will safely and efficiently tolerate diet of pureed solids and thin liquids via small (tsp volume) sips. 2. Pt's family/caregivers will benefit from education regarding safe swallowing strategies to decrease risk of aspiration and aspiration PNA . Long-term Goals 1. The pt will tolerate least restrictive diet to meet his nutrition and hydration needs.
--- NOTE | 2023-06-04 13:39 | PM.PNPO.1 ---
Subjective Subjective Date Patient Seen: 06/04/23 Time Patient Seen: 13:40 Interval history: Joseph is resting in bed, minimally verbal. Wiggles toes when I ask him to move his foot, denies pain. Exam Vital Signs (past 8 hours): - 06/04/23 05:47 06/04/23 07:13 06/04/23 08:01 Temperature 97.2 F L 97.2 F L Pulse Rate 81 70 76 Respiratory Rate 17 16 Blood Pressure 165/90 H 161/83 H Pulse Oximetry 97 100 99 Oxygen Delivery Method Nasal Cannula Oxygen Flow Rate 2 2 1 Fraction of Inspired Oxygen 28 06/04/23 10:20 06/04/23 13:00 06/04/23 13:00 Temperature 97.9 F Pulse Rate 75 81 Respiratory Rate 16 Blood Pressure 167/89 H 161/88 H Pulse Oximetry 100 100 Oxygen Delivery Method Oxygen Flow Rate 0 0 Fraction of Inspired Oxygen Fraction of Inspired Oxygen 28 SaO2/FiO2 Ratio 357 Oxygen Delivery Method Nasal Cannula Oxygen Flow Rate 0 Narrative Exam Narrative: Sensation to foot intact, does not follow commands to move at ankle, knee, or hip. Objective Labs 06/04/23 06:00 06/04/23 06:00 Labs: Laboratory Results - last 24 hr 06/04/23 06:00 WBC 9.9 RBC 3.79 L Hgb 11.2 L Hct 33.2 L MCV 87.7 MCH 29.5 MCHC 33.6 RDW 16.3 H Plt Count 105 L Neut % (Auto) 74.5 Lymph % (Auto) 16.4 L [place] % (Auto) 6.8 Eos % (Auto) 1.9 L Baso % (Auto) 0.4 Neut # (Auto) 7400 H Lymph # (Auto) 1600 [place] # (Auto) 700 Eos # (Auto) 200 Baso # (Auto) 0 Sodium 140 Potassium 4.1 Chloride 113 H Carbon Dioxide 24 BUN 22 H Creatinine 1.17 Estimated GFR > 60 BUN/Creatinine Ratio 18.8 Glucose 103 Calcium 8.5 Magnesium 1.8 Total Bilirubin 0.4 AST 29 ALT 24 Alkaline Phosphatase 85 Total Protein 6.1 L Albumin 3.0 L Globulin 3.1 Albumin/Globulin Ratio 1.0 PFSH Medical History History of small bowel obstruction Iron deficiency anemia Seizure disorder Hypertension CVA, old, alterations of sensations Surgical History History of colonoscopy with polypectomy History of bowel resection History of appendectomy Family History Father Cancer Social History household members: spouse and children Smoking Status: Former smoker alcohol intake: never Assessment & Plan Post-op Assessment and plan (1) Closed hip fracture: Assessment and Plan narrative: ORIF of left subcapital femoral neck fracture w/ cannulated screws. Partial weightbearing to LLE x 4 weeks. Follow up in orthopedic office in 2 weeks for wound check and staple removal, but if it is too difficult for him to be transferred, this can be done at SNF. VTE prophylaxis per hospitalist service; recommend ASA BID x 6 weeks unless contraindicated. If swallowing is an issue, can do enoxaparin 40mg daily x 4 weeks. Pain management per hospitalist service. Postoperative Procedures: Procedures Operation Date: 06/03/23 10:00 Actual Procedure Side Surgeon p ORIF Hip/Cannulated Screws Left Anton Zhou MD Postoperative day: 1
--- NOTE | 2023-06-04 13:43 | OT.IP.EVAL ---
Current Diagnoses Fracture of unspecified part of neck of unspecified femur, initial encounter for closed fracture (06/02/23) Unspecified fracture of head of left femur, initial encounter for closed fracture (06/02/23) Surgery Performed Operation Date: 06/03/23 10:00 Actual Procedures p ORIF Hip/Cannulated Screws(Left) - Anton Zhou MD Past Medical History (Last Reviewed 06/02/23 @ 12:08 by Teo Valladares DO) CVA, old, alterations of sensations History of small bowel obstruction Hypertension Iron deficiency anemia Seizure disorder Surgical History (Last Reviewed 06/02/23 @ 12:08 by Teo Valladares DO) History of appendectomy History of bowel resection History of colonoscopy with polypectomy Occupational Therapy Inpatient Evaluation/Re-Eval M1 PT/OT-IP Prior Functional Status Start: 06/04/23 10:47 Freq: NEEDED Status: Active Protocol: Document 06/04/23 13:04 BLANE (Rec: 06/04/23 13:42 BLANE [id number]) Medical Review Prior Functional Status Diet/Fluid Consistency Pureed Communication unable to make needs known Mobility and Gait per chart review amb with FWW Activities of Daily Living and IADL's pt is poor historian, spouse not present, no conclusive information found during chart review Social History Household Members spouse,children Number of Stairs To Enter/Railing? Pt is poor historian. Chart review is inconclusive concerning pt's home environment. M2 OT-IP Current Condition Start: 06/04/23 13:03 Freq: Status: Active Protocol: Document 06/04/23 13:04 BLANE (Rec: 06/04/23 13:42 [email or web address] [id number]) Occupational Therapy Current Condition Current Condition Evaluation Date 06/04/23 Treatment Diagnosis s/p L hip ORIF Diagnosis Onset Date 06/01/23 Weight Bearing Status Allowed Weight Bearing Amount (enter % no documented weight bearing or #) (%) status at time of eval M3 OT- IP Subjective and Pain Start: 06/04/23 13:03 Freq: Status: Active Protocol: Document 06/04/23 13:04 BLANE (Rec: 06/04/23 13:42 [email or web address] [id number]) OT- Subjective Occupational Therapy Visit Type Type Initial Evaluation Visit Start Time 11:00 Visit Stop Time 11:30 Notes Split eval. OT eval initiated [id number] continued from 1100- 1130 as co-eval with PT. Pt reclined in bed on both occasions and was pleasantly confused. Pt's BP at start of tx was 162/84, while sitting EOB it was 161/88. Pt on 2L of O2 using nasal canula. Pt O2 saturation dropped to 54% during UE AAROM. Pt followed demonstration/vc for taking deep breaths and O2 returned to 90s. Pt had multiple episodes of O2 dropping. At end of tx pt's O2 had returned to 92%. Nsg is aware. Occupational Therapy Visit Comments Patient Comments Pt able to respond yes and once said Joseph after OT asked if that was his name. 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 OT did not observe pt eating, however, on second arrival into pt's room pt is drooling what may be apple sauce from left side of his mouth. Nsg aware. OT ADL-Grooming General Evaluation Grooming Ability Total Assistance Areas Needing Assistance Retrieving/Set-up of Grooming Items,Face Washing Comments OT Grooming Comments OT offered a wet wash cloth to the pt and instructed pt to wash his face. Pt required hand over hand assist to perform task of wiping food particles from left side of his mouth. OT ADL-Oral Care Comments Oral Care Comments not attempted during eval due to pt's swallowing precautions and following commands limitedly OT ADL-Dressing General Eval Upper Body Dressing Ability Total Assistance Lower Body Dressing Ability Total Assistance Comments OT Dressing Comments Pt wearing a hospital gown. Pt 's gown fell off of his shoulders and into his lap. Pt unable to initiate pulling gown back into place. Pt currently requires total A. Pt may benefit from wearing more familiar clothing when medical care permits. OT ADL-Toileting General Evaluation Toileting Ability Total Assistance Areas Needing Assistance Empty Catheter or Colostomy, Manage Clothing Comments OT Toileting Comments Pt is currently using a catheter and pull up for all toileting needs. OT ADL-Bathing General Evaluation Bathing Ability Total Assistance Comments OT Bathing Comments Not observed during eval. Based on pt's grooming task, pt likely requires total A at the moment. M5 OT- IP IADL's Start: 06/04/23 13:03 Freq: Status: Active Protocol: Document 06/04/23 13:04 KAYLAHALLIROMERO (Rec: 06/04/23 13:42 [facility] [id number]) OT-Instrumental Activities of Daily Living Deficits IADL Deficits Identified Deficits Home Safety Awareness Awareness of Need for Assistance at Home Decreased Awareness Ability to Problem Solve Emergency Unable to Problem Solve Situations Medication Management Medication Management Caregiver Administers Money Management Money Management Caregiver Provides Assistance Meal Preparation Meal Preparation Caregiver Provides Assist Respiratory Care Assistant Respiratory Care Assistant Caregiver Provides Assist Driving Driving Caregiver Provides Assist M6 OT- IP Functional Cognition Start: 06/04/23 13:03 Freq: Status: Active Protocol: Document 06/04/23 13:04 KAYLAHALLIROMERO (Rec: 06/04/23 13:42 [facility] [id number]) Cognitive Factors Limiting Selfcare Function Cognitive Ability Level of Alertness Confusional State,Drowsy Patient Orientation Name Attention Span Ability Capable of Focused Attention, Unable to Sustain Attention Memory Description Immediate Impaired,Short Term Impaired,Apn Impaired Problem Solving Ability Unable to Identify Errors, Needs Assist to Identify Solutions Cognitive Tests SLUMS per chart review 08/29 Cognitive Comments Cognitive Assessment Comments Pt stated his name after OT stated once. Otherwise, pt answers yes or yeah to most questions. On a few occasions, pt nodded yes as well. Pt demonstrates limited ability to follow commands at this time. It is unclear, based on chart review, if this is his baseline. OT- Vision and Hearing OT- Hearing Assessment OT- Hearing Assessment WFL OT- Vision Assessment Visual Acuity WFL M7 OT- IP Mobility and Balance Start: 06/04/23 13:03 Freq: Status: Active Protocol: Document 06/04/23 13:04 KAYLAHALLIROMERO (Rec: 06/04/23 13:42 [facility] [id number]) OT- Bed Mobility Assessment Rolling Type of Rolling Roll to Right,Roll to Left Level of Assistance Maximum Assistance,Total Assistance,2 Person Assistance Supine to Sit Supine to Sit Assist Maximum Assistance,Total Assistance,2 Person Assistance ,Head of Bed Elevated Sit to Supine Sit to Supine Assist Maximum Assistance,Total Assistance,2 Person Assistance ,Head of Bed Elevated Scooting Scooting to Edge of Bed Maximum Assistance,Total Assistance,2 Person Assistance OT-Transfer Assessment Comments Mobility Comments Functional t/fs not attempted at time of eval due to not having documented weight bearing status. OT- Gait Assessment Comments Gait Ability Comments ambulation not attempted at time of eval due to not having documented weight bearing status OT- Balance Assessment Sitting Balance and Reactions Static Sitting Balance Ability Fair Dynamic Sitting Balance Ability Poor Comments Other Balance Tests/Deviations/Treatment Pt sits EOB for approximately : 5 minutes leaning posteriorly and to the left with mod-max A to correct positioning. Pt unable to maintain midline posture while EOB. Pt utilizes both hands on bed to assist with balance. M8 OT- IP Objective Assessments Start: 06/04/23 13:03 Freq: Status: Active Protocol: Document 06/04/23 13:04 BLANE (Rec: 06/04/23 13:42 [facility] [id number]) OT Gross Range of Motion Upper Extremity Range of Motion ROM Impairments Pt does not perform AROM on command or following demonstration. Pt demonstrates AAROM for B shoulders ~90 deg , B elbows/forearms/wrists/ digits WFL to slightly impaired. OT Strength Comments Strength Comments Pt does not follow commands for MMT to be accurately assessed. Pt does squeeze OTs hands on command Leida. OT- Coordination Assessment Comments Coordination Comments Pt unable to follow commands well enough to accurately determine coordination. M9 OT- IP Assessment and Plan Start: 06/04/23 13:03 Freq: Status: Active Protocol: Document 06/04/23 13:04 BLANE (Rec: 06/04/23 13:42 [facility] [id number]) OT Summary Assessment and Plan Potential Rehabilitation Potential Fair Analytic Complexity at Evaluation High Summary OT Impairments Pain,Range of Motion,Strength, Balance,Coordination, Functional Cognition, Functional Mobility,Self- Feeding,Grooming,Dressing, Toileting,Bathing,Toilet Transfers,Shower Transfers, Activity Tolerance Progress Towards Goals Slow Progress due to Pain,Slow Progress due to Medical Issues,Slow Progress due to Activity Tolerance,Slow Progress due to Cognition Assessment Summary Pt is a 77 yo M with cognitive decline/dementia (SLUMS 08/29) , hx CVA. Pt s/p fall on 05/31 resulting in L hip fx. Pt had L hip ORIF on 06/02. Pt's CT shows no acute changes. Pt is a poor historian. Once during eval, pt was able to state his name Joseph after OT said it. Pt's spouse is not present at time of eval, historical information obtained through chart review. It is unclear what the pts PLOF was and whether he was living with his spouse or in a facility. Per nsg, pt has lethargic today. Pt demonstrates significant limitations in ROM, strength, coordination, functional mobility, ADLs, and activity tolerance. As it is unclear if pt is functioning at or near baseline, pt would benefit from skilled OT services to address the noted areas of deficit. If it becomes known that pt is functioning at baseline, or if pt is not able to actively engage in OT, OT order will be d/c at that time. Goals Self-Feeding Goal Moderate Assistance Grooming Goal Moderate Assistance Dressing Goal Moderate Assistance Toileting Goal Moderate Assistance Bathing Goal Moderate Assistance Patient/Caregiver Education Goal Caregiver Independent Assisting Patient Days to Meet Goals 14 Frequency of Treatment Frequency Of Treatment Once a Day Treatment Plan OT Treatment Plan ADL Training,Functional Cognition Training,Functional Mobility,Therapeutic Exercises ,Patient/Family Education, Discharge Planning Discharge Recommendations OT Discharge Recommendations SNF Rehab Transportation Needs at Discharge Wheelchair/Cabulance
--- NOTE | 2023-06-04 13:56 | CM.DPC ---
DCP SNF Planning: Per MD, pt calm and cooperative and tolerated procedure well and to see if he can work with PT/OT today and also ordered ST eval due to pt's swallow concerns. Per ST, recommending pureed diet and thin liquids for now. Per PT/OT, pt only able to answer yes/no questions today and had difficulty following commands and directives but very pleasant and cooperative. Pt only able to sit EOB with max assist and recommending SNF rehab as pt quite below baseline. SW spoke to spouse and she confirms she has visited pt every day he has been admitted and confirms pt is quite below baseline. Spouse states pt typically ambulates with FWW independently, with very minimal assist and typically manages his own ADLs independently (feeds himself, brushes his teeth, toilets, etc..) and is able to communicate with family. Spouse feels due to pt's pain and medications and surgery that pt is very drowsy and on pain medications he does not have at baseline. Spouse confirms that she feels SNF will still be needed at d/c and preference remains [facility]. SW discussed that [facility] currently has some COVID+ pts in-house that are in isolation and spouse confirms her preference would still be [facility]. SW made SNF referrals to 1) [facility] 2) [facility], [facility] to [facility]. [facility] signed by due to depression meds and faxed to [facility] coordinator for exempted hospital discharge. Plan: SW to follow closely for SNF reviews to determine which can accept at d/c and ongoing progress with PT/OT/ST. DEAN Link
--- NOTE | 2023-06-04 17:12 | PM.PN.1 ---
Subjective Subjective Interval history: Patient still not oriented. Had trouble swallowing so MBS ordered. Exam Vital Signs (past 8 hours): - 06/04/23 10:20 06/04/23 13:00 06/04/23 13:00 Temperature 97.9 F Pulse Rate 75 81 Respiratory Rate 16 Blood Pressure 167/89 H 161/88 H Pulse Oximetry 100 100 Oxygen Flow Rate 0 0 06/04/23 15:49 Temperature 98.4 F Pulse Rate 92 H Respiratory Rate 16 Blood Pressure 152/74 H Pulse Oximetry 97 Oxygen Flow Rate 1.5 Fraction of Inspired Oxygen 28 SaO2/FiO2 Ratio 357 Oxygen Delivery Method Nasal Cannula Oxygen Flow Rate 1.5 Narrative Exam Narrative: GEN: no acute distress, only grunts mmhm or nnhnn to questions, not oriented. HEENT: moist mucous membranes, PERRL NECK: trachea midline, no JVD CV: regular rate and rhythm, no murmurs PULM: clear bilaterally ABD: soft, non-distended, no reported tenderness. EXT: warm and well perfused with no edema NEURO: no focal deficits Objective Labs 06/04/23 06:00 06/04/23 06:00 Labs: Laboratory Results - last 24 hr 06/04/23 06:00 WBC 9.9 RBC 3.79 L Hgb 11.2 L Hct 33.2 L MCV 87.7 MCH 29.5 MCHC 33.6 RDW 16.3 H Plt Count 105 L Neut % (Auto) 74.5 Lymph % (Auto) 16.4 L [place] % (Auto) 6.8 Eos % (Auto) 1.9 L Baso % (Auto) 0.4 Neut # (Auto) 7400 H Lymph # (Auto) 1600 [place] # (Auto) 700 Eos # (Auto) 200 Baso # (Auto) 0 Sodium 140 Potassium 4.1 Chloride 113 H Carbon Dioxide 24 BUN 22 H Creatinine 1.17 Estimated GFR > 60 BUN/Creatinine Ratio 18.8 Glucose 103 Calcium 8.5 Magnesium 1.8 Total Bilirubin 0.4 AST 29 ALT 24 Alkaline Phosphatase 85 Total Protein 6.1 L Albumin 3.0 L Globulin 3.1 Albumin/Globulin Ratio 1.0 PFSH Medical History History of small bowel obstruction Iron deficiency anemia Seizure disorder Hypertension CVA, old, alterations of sensations Surgical History History of colonoscopy with polypectomy History of bowel resection History of appendectomy Family History Father Cancer Social History household members: spouse and children Smoking Status: Former smoker alcohol intake: never Assessment & Plan Assessment & Plan narrative: Sepsis with acute respiratory failure with hypoxia, elevated creatinine, acute metabolic encephalopathy secondary to either pneumonia or acute cystitis - acute respiratory failure is improved today, possible aspiration based on presenting imaging. - continue zosyn, UA positive and possible aspiration PNA on imaging. - urine culture with citrobacter freundii, sensitive to rocephin - switch zosyn to rocephin daily - improved lactate on repeat, now resolved at 1.1. Dysphagia - likely due to encephalopathy - [employer] eval made pureed diet, however patient had trouble taking po meds so will order MBS Left hip fracture status post fall, pathologic due to osteoporosis - S/p operative repair 06/02 - discussed recommendations with orthopedics team - PT OT to start, will likely need SNF Hypertension. continue to hold home medications in setting of above sepsis. Previously on felodipine and lisinopril. Seizure disorder. Resume the home Keppra at 500 mg BID for now, pending med rec still though outpatient records he may be on 1000 mg BID GERD resume the home PPI FABRIZIO on CKD - Cr now normalized. Monitor. Cognitive decline/element of likely dementia. Supportive care, previous SLUMS 08/29 but definitely appears decreased cognition from prior admission. Previously on mirtazpine, follow up with [facility] med list. CODE: Full Proxy: Fariba Milan, spouse DVT/VTE prophylaxis:?SCDs, hold prior to surgery. Dispo: Will likely need SNF if mentation improves. If not may need to consider hospice.
[2023-06-04] MEDS: cefTRIAXone 1,000 MG in SODIUM CHLORIDE 0.9% 100 ML 200 MG IV (18:22)
[2023-06-04] MEDS: levETIRAcetam 1,000 MG in SODIUM CHLORIDE 0.9% 100 ML 440 MG IV (20:51)
[2023-06-05] VITALS (7 sets, daily range): BP systolic 130–178; BP diastolic 60–86; PULSE 67–80; RESP 16–18; TEMP 35.9–37; O2SAT 95–100
[2023-06-05] MEDS: LACTATED RINGERS 1,000 ML 21 ML IV (01:35)
--- NOTE | 2023-06-05 03:31 | PC.NURSE ---
front facer: Patient is alert & oriented to name, able to respond to yes/no questions. Denies pain. Left hip incision covered w/ gauze island drsg is CDI. SCDs are on, Q2 turning, foam heel protectors on. Patient is NPO d/t difficulty swallowing, MBS ordered. IV Keppra given, seizure precautions in place. Vital signs are stable, O2 99% on 1L NC. O2 desats to mid 80's on RA. [place] in place. Plan of care ongoing.
[2023-06-05 06:38] LABS: Add Manual Diff / Slide Review NO; Basophils Absolute Auto 0 /uL (0-100); Basophils Percent Auto 0.5 % (0-2); Eosinophils Absolute Auto 500 /uL (0-450); Eosinophils Percent Auto 6.8 % (2-4); Hematocrit 28.6 % (41-53); Hemoglobin 9.7 g/dL (13.5-17.5); Lymphocytes Absolute Auto 2000 /uL (1100-4500); Mean Corpuscular Hemoglobin 30.2 PG (26-34); Mean Corpuscular Volume 88.9 fL (80-100); Monocytes Absolute Auto 700 /uL (0-900); Monocytes Percent Auto 9.2 % (3-14); Neutrophils Absolute Auto 4300 /uL (1500-7000); Neutrophils Percent Auto 57.5 % (50-75); Platelet Count 119 X10^3/uL (150-400); Red Blood Cell Count 3.22 X10^6/uL (4.5-5.9); Red Cell Distribution Width 16.2 % (11.6-14.8); White Blood Cell Count 7.5 X10^3/uL (4.5-11.0)
[2023-06-05 06:56] LABS: Alanine Aminotransferase 16 IU/L (<50); Albumin 2.9 g/dL (3.5-5.0); Alkaline Phosphatase 80 U/L (38-126); Aspartate Aminotransferase 23 IU/L (17-59); BUN Creatinine Ratio 20.2 (6-22); Bilirubin Total 0.6 mg/dL (0.2-1.3); Blood Urea Nitrogen 23 mg/dL (9-20); Calcium 8.4 mg/dL (8.4-10.2); Carbon Dioxide 24 mmol/L (22-32); Chloride 113 mmol/L (98-107); Estimated Glomerular Filt Rate > 60 mL/min (>60); Glucose 78 mg/dL (80-110); HEMOLYSIS < 15 (0-50); Sodium 140 mmol/L (137-145); Total Protein 5.9 g/dL (6.3-8.2)
[2023-06-05] MEDS: DEXTROSE 5% WATER 1,000 ML 84 ML IV ×2 (07:51→21:59)
[2023-06-05] MEDS: levETIRAcetam 1,000 MG in SODIUM CHLORIDE 0.9% 100 ML 440 MG IV ×2 (09:03→21:56)
[2023-06-05] MEDS: ENOXAPARIN 40 MG/0.4 ML SYRINGE SUBCUT (09:03)
--- NOTE | 2023-06-05 10:00 | DI.RAD.S_ITS ---
PROCEDURE: FL BARIUM SWALLOW W SPEECH INDICATIONS: high aspiration risk COMPARISON: TECHNIQUE: Examination was conducted in conjunction with speech pathology per standard protocol. In the lateral projection, filming was performed of the patient swallowing. AP projection filming may also be performed with patient swallowing. COMPARISON: [facility], , BARIUM SWALLOW WITH SPEECH, 11/06/2016, 12:58. FINDINGS: Function: All phases of swallowing were markedly delayed and required extensive prompting. No definite laryngotracheal penetration or aspiration. Some vallecular pooling was noted but was cleared with multiple swallows. Morphology: No cricopharyngeal bar is identified. No cervical esophageal webs. No Zenker's diverticulum. No strictures. IMPRESSION: Markedly delayed swallowing function. Please see a detailed description of the findings by the speech pathologist. Dictated by: Thuy Boyle M.D. on 06/05/2023 at 17:38 Approved by: Thuy Boyle M.D. on 06/05/2023 at 17:40
--- NOTE | 2023-06-05 11:18 | SLP.IPNOTE ---
[employer]ELOPER recommendations following Modified Barium Swallow Study as of 06/05/23 11:15am: 1. Liquids: Thin liquids via small sips from cup or teaspoon. Recommend serving extra cold or extra warm to increase sensory input. Hold cup to lips between sips to encourage patient to swallow. 2. Solids: Puree solids. Recommend serving extra cold or extra warm to increase sensory input. Hold spoon to lips between bites to encourage patient to swallow. 3. Upright positioning during meals (retrograde flow of swallowed material was observed on MBS). Remain upright 30 minutes afterwards. Bed at 30-45 degrees when pt is at rest (flat position not recommended). 4. Check for pocketing. 5. 1:1 assist for feeding. 6. 1:1 assist for oral care. 7. SLOW feeding due to slowed clearance of the throat and retrograde bolus flow. 8. Meds crushed in applesauce if considered appropriate by pharmacist. Please see forthcoming [employer] DEVELOPER MBS report for further details regarding swallow function.
--- NOTE | 2023-06-05 11:29 | PT.IPTN ---
Current Diagnoses Fracture of unspecified part of neck of unspecified femur, initial encounter for closed fracture (06/02/23) Unspecified fracture of head of left femur, initial encounter for closed fracture (06/02/23) Surgery Performed Operation Date: 06/03/23 10:00 Actual Procedures p ORIF Hip/Cannulated Screws(Left) - Anton Zhou MD Physical Therapy Treatment Note M2 PT-IP Current Condition Start: 06/04/23 10:47 Freq: NEEDED Status: Active Protocol: Document 06/04/23 10:49 LRN (Rec: 06/04/23 18:12 LRN [id number]) Physical Therapy Current Condition Current Condition Evaluation Date 06/04/23 Treatment Diagnosis s/p L hip ORIF Onset Date 06/01/23 M3 PT-IP Subjective Start: 06/04/23 10:47 Freq: NEEDED Status: Active Protocol: Document 06/05/23 11:52 TS (Rec: 06/05/23 11:59 TS [id number]) Subjective Physical Therapy Visit Type Type Treatment Note Visit Start Time 11:29 Visit Stop Time 11:49 Number of WINDOWS SYSTEMS ADMIN Visits 1 Physical Therapy Visit Comments Patient Comments Pt found resting in bed, answers some questions with head nods, some verbal, is agreeable to PT. M4 PT-IP Mobility and Gait Start: 06/04/23 10:47 Freq: NEEDED Status: Active Protocol: Document 06/05/23 11:52 TS (Rec: 06/05/23 11:59 TS [id number]) PT-Bed Mobility Assessment Supine to Sit Supine to Sit Maximum Assistance,2 Person Assistance,Head of Bed Elevated Sit to Supine Sit to Supine Maximum Assistance,2 Person Assistance,Head of Bed Elevated Scooting Scooting to Edge of Bed Dependent PT-Transfer Assessment Comments Mobility Comments Supine to sit MaxA x2 for LEs over EOB and uprighting trunk. Pt matained sitting balance intially MaxA, progressed to CGA/SBA with cues for handrail and BUE support. Sit to supine MaxA for repositioning into bed. Pt was left in bed with all needs met. PT-Balance Assessment Sitting Balance and Reactions Static Sitting Balance Ability Fair Dynamic Sitting Balance Ability Poor Comments Other Balance Tests/Deviations/Treatment See mobility comments : M5 PT-IP Objective Assessments Start: 06/04/23 10:47 Freq: NEEDED Status: Active Protocol: Document 06/04/23 10:49 LRN (Rec: 06/04/23 18:12 LRN [id number]) Orientation Orientation/Cognition Level of Alertness Lethargic Comments Pt limited in ability to communicate with nods of heads . He is ble to follow a couple commands to move toes and delayed response to straighten his legs. Gross Range of Motion Upper Extremity ROM Impairments Pt not moving his UE's on command or during transfer. Lower Extremity ROM Assessment Bilaterally Impaired Impairments Pt not moving his LE's with transfers and once followed command to move toes. Strength Upper Extremity Strength Assessment Bilaterally Impaired Lower Extremity Strength Assessment Bilaterally Impaired Comments Strength Comments Pt was not able to follow commands to assess UE/LE strength. Other Assessments Other Other Assessments Pt's BP at start of tx ( sitting upright in bed) - 162/ 84; Sitting EOB - 161/88. Pt on 2L of O2 using nasal canula. Pt O2 saturation dropped to 54% during UE AAROM . SpO2 increased to 90's with vc to take deep breaths. End of treatment SpO2 - 92%. Nsg aware. M6 PT-IP Treatment Start: 06/04/23 10:47 Freq: NEEDED Status: Active Protocol: Document 06/04/23 10:49 LRN (Rec: 06/04/23 18:12 LRN [id number]) Physical Therapy Treatment Exercises Knee ROM Measurement LLE: L knee PROM 0-45 deg's. Other Treatments Other Treatment Performed Pt had no WBing limitations designated; therefore pt was not transferred out of bed. M7 PT-IP Assessment and Plan Start: 06/04/23 10:47 Freq: NEEDED Status: Active Protocol: Document 06/05/23 11:52 TS (Rec: 06/05/23 11:59 TS [id number]) PT Summary Assessment and Plan Potential Rehabilitation Potential Fair Summary Impairments Pain,ROM,Balance,Cognition,Bed Mobility,Transfers,Activity Tolerance Progress Towards Goals Slow Progress due to Pain,Slow Progress due to Medical Issues,Slow Progress due to Activity Tolerance Assessment Summary Joseph is making slow progress with his mobility. He requires MaxA for all bed mobility and max cues, he can follow some instructions but not all. He maintained sitting balance CGA/SBA, initially required MaxA. He remains hypoverbal, did respond to some questions with yes/no or I'm ok but mostly nods head. PT is recommending SNF at this time. Goals Bed Mobility Goal Moderate Assistance Transfer Goal Moderate Assistance,Front Wheeled Walker Other Goals Stand pivot transfer bed to chair when WBing status is known. Frequency of Treatment Frequency Of Treatment Twice a Day Treatment Plan Physical Therapy Treatment Plan Bed Mobility Training,Transfer Training,Therapeutic Exercise ,Balance Retraining Other Recommendations and Next Treatment Sitting balance training only. Focus Recommendations To Nursing Amount of Assist Needed Mechanical Lift Discharge Recommendations PT Discharge Recommendations SNF Rehab Transportation Needs at Discharge Wheelchair/Cabulance
--- NOTE | 2023-06-05 11:42 | DIET.CONS ---
Dietary Consultation Note Admission Date: 06/02/2023 01:09 Assessment: 77 y M admitted for hip fracture. Nutrition consulted for difficulty swallowing pills. Per [employer] diet is pureed, confirmed by modified barium swallow today 06/04. Starting liquid Ensure Enlive 06/04 [employer] recommends hot or cold food to help patient identify swallowing cues. Kitchen experimenting for what will work for pt. Ht: 172.72 cm Wt: 53.524 kg BMI: 17.9 UBW: Last BM: 06/02/23 (06/02/23 02:16) MNA: Lionel Score: 16 Diet: 06/04/23 Lunch Dysphagia Diet Diet Modifications: Food Texture: Level 4 - Pureed Liquid Consistency: Level 0 - Thin Nutrition Percent Meal Consumed 0% 06/04/23 18:00 Percent Meal Consumed 0% 06/04/23 15:00 Percent Meal Consumed 0% 06/04/23 12:00 Labs: RBC 3.22 X10^6/uL (4.5-5.9) L 06/05/23 05:55 Hgb 9.7 g/dL (13.5-17.5) L 06/05/23 05:55 Hct 28.6 % (41-53) L 06/05/23 05:55 Creatinine 1.14 mg/dL (0.66-1.25) 06/05/23 05:55 Lactate 1.1 mmol/L (0.7-2.1) 06/03/23 06:35 NT-Pro-B Natriuret Pep 8010 pg/mL (<450) H 06/02/23 13:40 Nutrition Diagnosis: 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 This increases the difficulty and complexity of medical and surgical interventions and increases the chances of poor outcomes such as morbidity and mortality. Interventions: Started liquid Ensure Enlive EER: 4689-7525 kcals/day (35-40 kcals/kg) 80-90 grams/day (1.5-1.7 grams/kg) Monitoring/Evaluations: ONS tolerance PO Electronically Signed by: Amanda Go 06/05/23 11:42 Clinical Dietitian [address] [address]
--- NOTE | 2023-06-05 11:51 | OT.IP.TRT ---
Current Diagnoses Fracture of unspecified part of neck of unspecified femur, initial encounter for closed fracture (06/02/23) Unspecified fracture of head of left femur, initial encounter for closed fracture (06/02/23) Surgery Performed Operation Date: 06/03/23 10:00 Actual Procedures p ORIF Hip/Cannulated Screws(Left) - Anton Zhou MD Occupational Therapy Treatment Note M2 OT-IP Current Condition Start: 06/04/23 13:03 Freq: Status: Active Protocol: Document 06/04/23 13:04 BLANE (Rec: 06/04/23 13:42 [id number]) Occupational Therapy Current Condition Current Condition Evaluation Date 06/04/23 Treatment Diagnosis s/p L hip ORIF Diagnosis Onset Date 06/01/23 Weight Bearing Status Allowed Weight Bearing Amount (enter % no documented weight bearing or #) (%) status at time of eval M3 OT- IP Subjective and Pain Start: 06/04/23 13:03 Freq: Status: Active Protocol: Document 06/05/23 13:08 [facility] (Rec: 06/05/23 13:20 [facility] [id number]) OT- Subjective Occupational Therapy Visit Type Type Initial Evaluation Visit Start Time 11:20 Visit Stop Time 11:51 Occupational Therapy Visit Comments Patient Comments Pt agreed to try to sit up at the edge of the bed. OT Pain Assessment Pain When Pain Assessed During Mobility Pain Present Pain Present Pain Reported M4 OT- IP ADL's Start: 06/04/23 13:03 Freq: Status: Active Protocol: Document 06/05/23 13:08 [facility] (Rec: 06/05/23 13:20 [facility] [id number]) OT [id number] Comments OT Self-Feeding Comments Not at meal time, pt just having MBS earlier. OT ADL-Grooming General Evaluation Grooming Ability Total Assistance Areas Needing Assistance Retrieving/Set-up of Grooming Items,Face Washing Comments OT Grooming Comments Pt continues to need OUZINKIE assist to be able to wash his face after a set-up of wash cloth. OT ADL-Oral Care Comments Oral Care Comments No performed. OT ADL-Dressing Comments OT Dressing Comments Pt needs total assist for all needs at this time. OT ADL-Toileting General Evaluation Toileting Ability Total Assistance OT ADL-Bathing Comments OT Bathing Comments Total assist sponge bath more appropriate at this time. M5 OT- IP IADL's Start: 06/04/23 13:03 Freq: Status: Active Protocol: Document 06/04/23 13:04 BLANE (Rec: 06/04/23 13:42 BLANE [id number]) OT-Instrumental Activities of Daily Living Deficits IADL Deficits Identified Deficits Home Safety Awareness Awareness of Need for Assistance at Home Decreased Awareness Ability to Problem Solve Emergency Unable to Problem Solve Situations Medication Management Medication Management Caregiver Administers Money Management Money Management Caregiver Provides Assistance Meal Preparation Meal Preparation Caregiver Provides Assist Slab Worker Slab Worker Caregiver Provides Assist Driving Driving Caregiver Provides Assist M6 OT- IP Functional Cognition Start: 06/04/23 13:03 Freq: Status: Active Protocol: Document 06/05/23 13:08 [facility] (Rec: 06/05/23 13:20 [facility] [id number]) Cognitive Factors Limiting Selfcare Function Cognitive Ability Level of Alertness Alert,Drowsy Attention Span Ability Capable of Focused Attention, Unable to Sustain Attention Memory Description Immediate Impaired,Short Term Impaired,Group Home Impaired Cognitive Comments Cognitive Assessment Comments Pt orientated to his name and aware that his birthday was in [birth year] after naming off months to him. Pt able to answer yes /no questions more accurately today and follow commands for mobility needs with vc and tactile cues better. M7 OT- IP Mobility and Balance Start: 06/04/23 13:03 Freq: Status: Active Protocol: Document 06/05/23 13:08 [facility] (Rec: 06/05/23 13:20 [facility] [id number]) OT- Bed Mobility Assessment Supine to Sit Supine to Sit Assist Maximum Assistance,2 Person Assistance Sit to Supine Sit to Supine Assist Maximum Assistance,2 Person Assistance Scooting Scooting to Edge of Bed Maximum Assistance,2 Person Assistance OT-Transfer Assessment Comments Mobility Comments MAXA XA 2 to help move his legs and get his trunk upright . MAX/Total Ax2 to help scoot pt up to the head of the bed. Pt able to sit initially with MAX AX a and then with CGA with use of the handle on the bed. OT- Balance Assessment Sitting Balance and Reactions Static Sitting Balance Ability Fair Dynamic Sitting Balance Ability Poor Comments Other Balance Tests/Deviations/Treatment Pt initially leans to the left : and then with correction and cues able to sit more to midline and able to try to keep his head up with cues. Pt able to put his left hand down on the bed and right hand on the bed handle to assist. Pt has a very flexed postured at neck, trunk, and in posterior tilt. M8 OT- IP Objective Assessments Start: 06/04/23 13:03 Freq: Status: Active Protocol: Document 06/04/23 13:04 BLANE (Rec: 06/04/23 13:42 BLANE [id number]) OT Gross Range of Motion Upper Extremity Range of Motion ROM Impairments Pt does not perform AROM on command or following demonstartion. Pt demonstrates AAROM for B shoulders ~90 deg , B elbows/forearms/wrists/ digits WFL to slightly impaired. OT Strength Comments Strength Comments Pt does not follow commands for MMT to be accurately assessed. Pt does squeeze OTs hands on command Leida. OT- Coordination Assessment Comments Coordination Comments Pt unable to follow commands well enough to accurately determine coordination. M9 OT- IP Assessment and Plan Start: 06/04/23 13:03 Freq: Status: Active Protocol: Document 06/05/23 13:08 [facility] (Rec: 06/05/23 13:20 [facility] [id number]) OT Summary Assessment and Plan Potential Rehabilitation Potential Fair Analytic Complexity at Evaluation High Summary OT Impairments Pain,Range of Motion,Strength, Balance,Coordination, Functional Cognition, Functional Mobility,Self- Feeding,Grooming,Dressing, Toileting,Bathing,Toilet Transfers,Shower Transfers, Activity Tolerance Progress Towards Goals Slow Progress due to Pain,Slow Progress due to Medical Issues,Slow Progress due to Activity Tolerance,Slow Progress due to Cognition Assessment Summary Pt cooperative and able to participate in sitting balance and scooting to the head of the bed with MAX AX 2. Pt a little more alert today and able to stats his first and last name today. Pt will benefit from skilled rehab to help maximize his level of independence for needs. Nursing aware pt not able to push the call light and door opened so staff able to see the pt. Goals Self-Feeding Goal Moderate Assistance Grooming Goal Moderate Assistance Dressing Goal Moderate Assistance Toileting Goal Moderate Assistance Bathing Goal Moderate Assistance Patient/Caregiver Education Goal Caregiver Independent Assisting Patient Days to Meet Goals 14 Frequency of Treatment Frequency Of Treatment Once a Day Treatment Plan OT Treatment Plan ADL Training,Functional Cognition Training,Functional Mobility,Therapeutic Exercises ,Patient/Family Education, Discharge Planning Discharge Recommendations OT Discharge Recommendations SNF Rehab Transportation Needs at Discharge Wheelchair/Cabulance
--- NOTE | 2023-06-05 13:41 | PM.PN.1 ---
Subjective Subjective Interval history: Patient able to pass MBS. Pureed diet reordered. Awaiting SNF. Exam Vital Signs (past 8 hours): - 06/05/23 06:16 06/05/23 08:00 06/05/23 08:56 Temperature 98.6 F 97.5 F L Pulse Rate 74 67 Respiratory Rate 17 16 Blood Pressure 148/76 H 130/60 Pulse Oximetry 99 95 100 Oxygen Delivery Method Nasal Cannula Oxygen Flow Rate 2 2 2 06/05/23 12:00 Temperature 96.7 F L Pulse Rate 77 Respiratory Rate 18 Blood Pressure 178/86 H Pulse Oximetry 98 Oxygen Delivery Method Oxygen Flow Rate 2 Fraction of Inspired Oxygen 28 SaO2/FiO2 Ratio 357 Oxygen Delivery Method Nasal Cannula Oxygen Flow Rate 2 Narrative Exam Narrative: GEN: no acute distress, somnolent HEENT: moist mucous membranes, PERRL NECK: trachea midline, no JVD CV: regular rate and rhythm, no murmurs PULM: clear bilaterally ABD: soft, non-distended, no reported tenderness. EXT: warm and well perfused with no edema NEURO: no focal deficits Objective Labs 06/05/23 05:55 06/05/23 05:55 Labs: Laboratory Results - last 24 hr 06/01/23 06/05/23 22:25 05:55 WBC 7.5 RBC 3.22 L Hgb 9.7 L Hct 28.6 L MCV 88.9 MCH 30.2 MCHC 34.0 RDW 16.2 H Plt Count 119 L Neut % (Auto) 57.5 Lymph % (Auto) 26.0 Wilkes % (Auto) 9.2 Eos % (Auto) 6.8 H Baso % (Auto) 0.5 Neut # (Auto) 4300 Lymph # (Auto) 2000 Wilkes # (Auto) 700 Eos # (Auto) 500 H Baso # (Auto) 0 Sodium 140 Potassium 4.0 Chloride 113 H Carbon Dioxide 24 BUN 23 H Creatinine 1.14 Estimated GFR > 60 BUN/Creatinine Ratio 20.2 Glucose 78 L Calcium 8.4 Magnesium 2.0 Total Bilirubin 0.6 AST 23 ALT 16 Alkaline Phosphatase 80 Total Protein 5.9 L Albumin 2.9 L Globulin 3.0 Albumin/Globulin Ratio 1.0 Crossmatch See Detail [facility] Medical History History of small bowel obstruction Iron deficiency anemia Seizure disorder Hypertension CVA, old, alterations of sensations Surgical History History of colonoscopy with polypectomy History of bowel resection History of appendectomy Family History Father Cancer Social History household members: spouse and children Smoking Status: Former smoker alcohol intake: never Assessment & Plan Assessment & Plan narrative: Sepsis with acute respiratory failure with hypoxia, elevated creatinine, acute metabolic encephalopathy secondary to either pneumonia or acute cystitis - acute respiratory failure is improved today, possible aspiration based on presenting imaging. - continue zosyn, UA positive and possible aspiration PNA on imaging. - urine culture with citrobacter freundii, sensitive to rocephin - switch zosyn to rocephin daily - improved lactate on repeat, now resolved at 1.1. Dysphagia - likely due to encephalopathy - DADO OPERATOR eval made pureed diet, however patient had trouble taking po meds so will order MBS Left hip fracture status post fall, pathologic due to osteoporosis - S/p operative repair 06/02 - discussed recommendations with orthopedics team - PT OT to start, will likely need SNF Hypertension. continue to hold home medications in setting of above sepsis. Previously on felodipine and lisinopril. Seizure disorder. Resume the home Keppra at 500 mg BID for now, pending med rec still though outpatient records he may be on 1000 mg BID GERD resume the home PPI FABRIZIO on CKD - Cr now normalized. Monitor. Cognitive decline/element of likely dementia. Supportive care, previous SLUMS 08/29 but definitely appears decreased cognition from prior admission. Previously on mirtazpine, follow up with [facility] med list. 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 This increases the difficulty and complexity of medical and surgical interventions and increases the chances of poor outcomes such as morbidity and mortality. CODE: Full Proxy: Fariba Milan, spouse DVT/VTE prophylaxis:?SCDs, hold prior to surgery. Dispo: SNF in 1-2 days.
--- NOTE | 2023-06-05 14:42 | P.PN_ITS ---
Subjective Subjective Date Patient Seen: 06/05/23 Time Patient Seen: 07:00 Interval history: Patient is found lying in bed. He is able to sound out 1 word replies but does understand questions. Exam Vital Signs (past 8 hours): - 06/05/23 08:00 06/05/23 08:56 06/05/23 12:00 Temperature 97.5 F L 96.7 F L Pulse Rate 67 77 Respiratory Rate 16 18 Blood Pressure 130/60 178/86 H Pulse Oximetry 95 100 98 Oxygen Delivery Method Nasal Cannula Oxygen Flow Rate 2 2 2 Fraction of Inspired Oxygen 28 SaO2/FiO2 Ratio 357 Oxygen Delivery Method Nasal Cannula Oxygen Flow Rate 2 Narrative Exam Narrative: Patient is found lying in bed with fall guard surrounding him with padded boots on both feet. Dressing appears to be intact no signs of any drainage is clean. He is able to actively dorsi and plantar flex at the ankle bilaterally and manipulate all toes. Denies increased pain with compression along the posterior thigh or calf bilaterally. Objective Labs 06/05/23 05:55 06/05/23 05:55 Labs: Laboratory Results - last 24 hr 06/01/23 06/05/23 22:25 05:55 WBC 7.5 RBC 3.22 L Hgb 9.7 L Hct 28.6 L MCV 88.9 MCH 30.2 MCHC 34.0 RDW 16.2 H Plt Count 119 L Neut % (Auto) 57.5 Lymph % (Auto) 26.0 Conway % (Auto) 9.2 Eos % (Auto) 6.8 H Baso % (Auto) 0.5 Neut # (Auto) 4300 Lymph # (Auto) 2000 [place] # (Auto) 700 Eos # (Auto) 500 H Baso # (Auto) 0 Sodium 140 Potassium 4.0 Chloride 113 H Carbon Dioxide 24 BUN 23 H Creatinine 1.14 Estimated GFR > 60 BUN/Creatinine Ratio 20.2 Glucose 78 L Calcium 8.4 Magnesium 2.0 Total Bilirubin 0.6 AST 23 ALT 16 Alkaline Phosphatase 80 Total Protein 5.9 L Albumin 2.9 L Globulin 3.0 Albumin/Globulin Ratio 1.0 Crossmatch See Detail [facility] Medical History History of small bowel obstruction Iron deficiency anemia Seizure disorder Hypertension CVA, old, alterations of sensations Surgical History History of colonoscopy with polypectomy History of bowel resection History of appendectomy Family History Father Cancer Social History household members: spouse and children Smoking Status: Former smoker alcohol intake: never Assessment & Plan Post-op Postoperative Procedures: Procedures Operation Date: 06/03/23 10:00 Actual Procedure Side Surgeon p ORIF Hip/Cannulated Screws Left Anton Zhou MD Postoperative day: 2 Postoperative status: doing well Postoperative plan narrative: ORIF of left subcapital femoral neck fracture w/ cannulated screws. Partial weightbearing to LLE x 4 weeks. Follow up in orthopedic office in 2 weeks for wound check and staple removal, but if it is too difficult for him to be transferred, this can be done at SNF. VTE prophylaxis per hospitalist service; recommend ASA BID x 6 weeks unless contraindicated. If swallowing is an issue, can do enoxaparin 40mg daily x 4 weeks. Pain management per hospitalist service.
--- NOTE | 2023-06-05 15:15 | PT.IPTN ---
Current Diagnoses Fracture of unspecified part of neck of unspecified femur, initial encounter for closed fracture (06/02/23) Unspecified fracture of head of left femur, initial encounter for closed fracture (06/02/23) Surgery Performed Operation Date: 06/03/23 10:00 Actual Procedures p ORIF Hip/Cannulated Screws(Left) - Anton Zhou MD Physical Therapy Treatment Note M2 PT-IP Current Condition Start: 06/04/23 10:47 Freq: NEEDED Status: Active Protocol: Document 06/04/23 10:49 LRN (Rec: 06/04/23 18:12 LRN [id number]) Physical Therapy Current Condition Current Condition Evaluation Date 06/04/23 Treatment Diagnosis s/p L hip ORIF Onset Date 06/01/23 M3 PT-IP Subjective Start: 06/04/23 10:47 Freq: NEEDED Status: Active Protocol: Document 06/05/23 15:41 TS (Rec: 06/05/23 15:53 TS [id number]) Subjective Physical Therapy Visit Type Type Treatment Note Visit Start Time 15:15 Visit Stop Time 15:40 Number of HEALTHCARE PROF Visits 2 Physical Therapy Visit Comments Patient Comments Pt found resting in bed, more verbal this afternoon, is agreeable to PT. M4 PT-IP Mobility and Gait Start: 06/04/23 10:47 Freq: NEEDED Status: Active Protocol: Document 06/05/23 15:41 TS (Rec: 06/05/23 15:53 TS [id number]) PT-Bed Mobility Assessment Supine to Sit Supine to Sit Maximum Assistance,2 Person Assistance,Head of Bed Elevated Sit to Supine Sit to Supine Maximum Assistance,2 Person Assistance,Head of Bed Elevated Scooting Scooting to Edge of Bed Dependent PT-Transfer Assessment Comments Mobility Comments Supine to sit HOB elevated MaxA x2 for uprighting to sitting position. Pt sat EOB with BUE support Sorin to CGA/ SBA at times, pt requires cues for handrail assist. Sit to supine into bed MaxA x2 with use of transfer pads. Pt was left in bed, all needs met. PT-Balance Assessment Sitting Balance and Reactions Static Sitting Balance Ability Fair Dynamic Sitting Balance Ability Poor M5 PT-IP Objective Assessments Start: 06/04/23 10:47 Freq: NEEDED Status: Active Protocol: Document 06/04/23 10:49 LRN (Rec: 06/04/23 18:12 LRN [id number]) Orientation Orientation/Cognition Level of Alertness Lethargic Comments Pt limited in ability to communicate with nods of heads . He is ble to follow a couple commands to move toes and delayed response to straighten his legs. Gross Range of Motion Upper Extremity ROM Impairments Pt not moving his UE's on command or during transfer. Lower Extremity ROM Assessment Bilaterally Impaired Impairments Pt not moving his LE's with transfers and once followed command to move toes. Strength Upper Extremity Strength Assessment Bilaterally Impaired Lower Extremity Strength Assessment Bilaterally Impaired Comments Strength Comments Pt was not able to follow commands to assess UE/LE strength. Other Assessments Other Other Assessments Pt's BP at start of tx ( sitting upright in bed) - 162/ 84; Sitting EOB - 161/88. Pt on 2L of O2 using nasal canula. Pt O2 saturation dropped to 54% during UE AAROM . SpO2 increased to 90's with vc to take deep breaths. End of treatment SpO2 - 92%. Nsg aware. M6 PT-IP Treatment Start: 06/04/23 10:47 Freq: NEEDED Status: Active Protocol: Document 06/04/23 10:49 LRN (Rec: 06/04/23 18:12 LRN [id number]) Physical Therapy Treatment Exercises Knee ROM Measurement LLE: L knee PROM 0-45 deg's. Other Treatments Other Treatment Performed Pt had no WBing limitations designated; therefore pt was not transferred out of bed. M7 PT-IP Assessment and Plan Start: 06/04/23 10:47 Freq: NEEDED Status: Active Protocol: Document 06/05/23 15:41 TS (Rec: 06/05/23 15:53 TS [id number]) PT Summary Assessment and Plan Potential Rehabilitation Potential Fair Summary Impairments Pain,ROM,Balance,Cognition,Bed Mobility,Transfers,Activity Tolerance Progress Towards Goals Slow Progress due to Pain,Slow Progress due to Medical Issues,Slow Progress due to Activity Tolerance Assessment Summary Joseph continues to require MaxA x2 for bed mobility and is dependent for scooting to EOB. He continues to sit EOB CGA/SBA, does require Sorin and cues at times for lateral leaning. He is more verbal this session and can answer questions more easily. PT continues to recommend SNF rehab. Goals Bed Mobility Goal Moderate Assistance Transfer Goal Moderate Assistance,Front Wheeled Walker Other Goals Stand pivot transfer bed to chair when WBing status is known. Frequency of Treatment Frequency Of Treatment Twice a Day Treatment Plan Physical Therapy Treatment Plan Bed Mobility Training,Transfer Training,Therapeutic Exercise ,Balance Retraining Other Recommendations and Next Treatment Sitting balance training only. Focus Recommendations To Nursing Amount of Assist Needed Mechanical Lift Discharge Recommendations PT Discharge Recommendations SNF Rehab Transportation Needs at Discharge Wheelchair/Cabulance
--- NOTE | 2023-06-05 15:27 | CM.DPC ---
DCP SNF Planning: Per MD, pt making slow progress and to have MBS with ST today due to difficulty swallowing that waxes and wanes. Per MBS, ST has modified recommendations noted today and pt able to tolerate PO still at this time. Per PT/OT, pt able to participate a little bit more today and slightly less assist and still recommending SNF rehab. [facility] confirms that they can accept pt at d/c. [facility] reviewing and likely think they could accept also. [facility] can accept and only a couple residents on COVID isolation at this time. [facility] can accept Wed if pt ready for d/c. SW called spouse and updated on the 3 likely accepting SNFs and update on [facility]'s COVID residents and spouse again confirms her preference is [facility] even with COVID+ residents. Spouse aware that pt might be ready for d/c tomorrow Wed. SW updated above SNF's that spouse preference is [facility] and possible discharge Wed if stable. Plan: SW to follow for plan of discharge to [facility] when medically stable before safe d/c home with spouse and family. PASRR completed and received by PASRR coordinator Meka. DEAN Link
[2023-06-05] MEDS: cefTRIAXone 1,000 MG in SODIUM CHLORIDE 0.9% 100 ML 200 MG IV (16:41)
--- NOTE | 2023-06-05 17:17 | ST.SWALLOW ---
Visit Care Team Role Provider Type Gemini Nix MD Primary Care Provider Non-Staff Specialty: Internal Medicine Address: 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 Noble Salter Reason for Referral Dysphagia Patient Information Identification Type Name Patient History Per H&P: 77 years old male with cognitive decline/ dementia (SLUMS 08/29) CVA, hypertension, seizure disorder , bowel obstructions in the past was brought into the emergency room status post fall with left hip pain and vomiting. He is not a good historian and only able to relate his name. Unable to get a good history from the patient and additional history remains unavailable today. Most of the history has been obtained from caregiver/chart review. Apparently on arrival , patient was also hypoxic and confused. CT scan of the brain shows no acute process. CT chest abdomen and pelvis was done that was negative for pulm embolism but does show interlobar septal thickening with trace bilateral pleural effusions with potential pulmonary edema and mildly displaced fracture of the subcapital left femoral head. Patient was given IV Zosyn with oxygen. Discussed with orthopedics and patient was admitted for further evaluation. Orthopedics plans for operiatve interventions tomorrow. He was taken off supplemental oxygen this morning and was able to maintain saturations above 90% . PMHx significant for: History of small bowel obstruction Iron deficiency anemia Seizure disorder Hypertension CVA, old, alterations of sensations Pt referred for ST evaluation d/t possible aspiration PNA based on chest xray. Pt was put on full liquids, however is now NPO d/t nursing Pt with observed swallow difficulties . Chest CTA on 06/01/23 indicated: IMPRESSION: No pulmonary embolus. No focal pulmonary consolidations. Diffuse interlobular septal thickening and trace bilateral pleural effusions, may represent pulmonary edema. Moderate compression arteries of the T7 and T8 vertebral bodies are age indeterminate, favored to be chronic in etiology. Pt was previously seen in this hospital by on 01/03/23 with diet recommendations IDDSI 5 and thin liquids. He was re-evaluated yesterday, 06/04/23, by ST Jamel Romero who recommended puree solids and thin liquids. CSE noted difficulty initiating propulsion of bolus into the pharynx, but no overt s/sx aspiration/penetration observed. MBS was ordered by Dr. Wade. Patient Positioning Position View Lateral Imaging Lateral View Textures Administered Trials Presented Thin Liquid via Spoon (IDDSI 0 ),Thin Liquid via Cup (IDDSI 0 ),Mildly Thick Liquid via Spoon (IDDSI 2),Puree (IDDSI 4 ) Barium Tablet No The IDDSI Framework Protocol: IDDSI.1 Oral Impairment Source: The Modified Barium Swallow Impairment Profile (MBSImP??) Lip Closure Escape beyond mid-chin Tongue Control During Bolus Hold Posterior escape of less than half of bolus Bolus Transport/Lingual Motion Repetitive/disorganized tongue motion Oral Residue Residue collection on oral structures Initiation of Pharyngeal Swallow Bolus head at posterior laryngeal surface of epiglottis Additional Oral Impairment Observations -profound oral stasis/holding of the bolus prior to swallow initiation. Pudding was held for 3 minutes and 30 seconds before swallow was initiated -swallow does not initiate until a large portion of the bolus has collected in the vallecula -benefitted from verbal cues to press tongue up to roof of mouth and squeeze -benefitted from cue of bringing cup to mouth -did not trial solids other than pudding due to concerns for safety Pharyngeal Impairment Source: The Modified Barium Swallow Impairment Profile (MBSImP??) Soft Palate Elevation No bolus between soft palate & pharyngeal wall Laryngeal Elevation Part.sup.move.thyroid cart/ part.approx.arytenoids to epiglot.petiole Anterior Hyoid Excursion Partial anterior movement Epiglottic Movement Complete inversion Laryngeal Vestibular Closure Complete; no air/contrast in laryngeal vestibule Pharyngeal Stripping Wave Absent Pharyngoesophageal Segment Opening Complete distention & complete duration; no obstruction of flow Tongue Base Retraction Narrow column of contrast/air betwn tongue base & post. pharyngeal wall Pharyngeal Residue Collection of residue within/ on pharyngeal structures Additional Pharyngeal Impairment -retrograde flow of bolus Observations through UES which then remains in pyriform sinuses -significant residue in vallecula -airway protection appears adequate with no penetration or aspiration observed during this study. A/P View The IDDSI Framework Protocol: IDDSI.1 Clinical Impressions Dysphagia Type Oral Findings Pt presents with profound oral dysphagia and mild pharyngeal dysphagia. Pt's deficits are most predominantly characterized by disorganized, repetitive tongue movements, difficulty initiating A-P transport, oral stasis, anterior bolus loss from the oral cavity, retrograde bolus flow through UES, and vallecular residue. Pt may be at risk of aspirating reflux based on significant retrograde bolus flow. Rehabilitation Potential Fair Recommendations Diet Liquids Order Thin (IDDSI 0) Diet Order Pureed (IDDSI 4) Medication Recommendation Crushed in Carrier Comments 24-hr assistance/supervision; Dementia strategies, nutritional supplements Aspiration Precautions Recommended Precautions Upright at 90 Degrees,Small Bites/Sips,Check for Pocketing Treatment Plan Therapy Recommendations Inpatient Speech Therapy Recommended Referrals Dietary Consult Therapy Strategy Recommendations Sitting Upright (90 deg) Placement Recommendation After Discharge [facility] Facility,[facility],Home with Home Health
[2023-06-05] MEDS: SENNOSIDES 8.6 MG TABLET 17.2 MG PO (21:57)
[2023-06-05] MEDS: MIRTAZAPINE 15 MG TABLET 30 MG PO (21:57)
[2023-06-05] MEDS: DOCUSATE 100 MG CAPSULE PO (21:57)
[2023-06-06 01:35] VITALS: BP 160/80; PULSE 76; RESP 16; TEMP 36.3; O2SAT 93
[2023-06-06 05:45] VITALS: BP 146/80; PULSE 83; RESP 17; TEMP 36.2; O2SAT 93
[2023-06-06 05:55] LABS: Add Manual Diff / Slide Review NO; Basophils Absolute Auto 0 /uL (0-100); Basophils Percent Auto 0.5 % (0-2); Eosinophils Absolute Auto 500 /uL (0-450); Eosinophils Percent Auto 6.9 % (2-4); Hematocrit 30.5 % (41-53); Hemoglobin 10.6 g/dL (13.5-17.5); Lymphocytes Absolute Auto 1800 /uL (1100-4500); Lymphocytes Percent Auto 26.7 % (25-40); Mean Corpuscular HGB Conc 34.6 % (30-36); Mean Corpuscular Hemoglobin 30.5 PG (26-34); Monocytes Absolute Auto 700 /uL (0-900); Monocytes Percent Auto 10.7 % (3-14); Neutrophils Absolute Auto 3600 /uL (1500-7000); Neutrophils Percent Auto 55.2 % (50-75); Platelet Count 140 X10^3/uL (150-400); Red Blood Cell Count 3.47 X10^6/uL (4.5-5.9); Red Cell Distribution Width 15.9 % (11.6-14.8); White Blood Cell Count 6.6 X10^3/uL (4.5-11.0)
[2023-06-06 06:11] LABS: Alanine Aminotransferase 14 IU/L (<50); Albumin 2.8 g/dL (3.5-5.0); Albumin Globulin Ratio 0.9 (1.0-2.8); Alkaline Phosphatase 71 U/L (38-126); Aspartate Aminotransferase 20 IU/L (17-59); BUN Creatinine Ratio 14.6 (6-22); Bilirubin Total 0.5 mg/dL (0.2-1.3); Blood Urea Nitrogen 14 mg/dL (9-20); Calcium 8.4 mg/dL (8.4-10.2); Carbon Dioxide 26 mmol/L (22-32); Chloride 110 mmol/L (98-107); Estimated Glomerular Filt Rate > 60 mL/min (>60); Glucose 112 mg/dL (80-110); HEMOLYSIS < 15 (0-50); Magnesium 1.8 mg/dL (1.6-2.3); Potassium 3.4 mmol/L (3.4-5.1); Sodium 139 mmol/L (137-145); Total Protein 5.8 g/dL (6.3-8.2)
--- NOTE | 2023-06-06 07:39 | PM.PNPO.1 ---
Subjective Subjective Date Patient Seen: 06/06/23 Time Patient Seen: 08:15 Interval history: Pt lying in bed, opens eyes to voice, but groans in response to questions. Exam Vital Signs (past 8 hours): - 06/06/23 01:35 06/06/23 05:45 Temperature 97.4 F L 97.2 F L Pulse Rate 76 83 Respiratory Rate 16 17 Blood Pressure 160/80 H 146/80 H Pulse Oximetry 93 93 Oxygen Flow Rate 0 0 Fraction of Inspired Oxygen 28 SaO2/FiO2 Ratio 357 Oxygen Delivery Method Nasal Cannula Oxygen Flow Rate 0 Narrative Exam Narrative: Moves left foot minimally to commands. Dressings placed intraoperatively CDI. Objective Labs 06/06/23 05:30 06/06/23 05:30 Labs: Laboratory Results - last 24 hr 06/06/23 05:30 WBC 6.6 RBC 3.47 L Hgb 10.6 L Hct 30.5 L MCV 88.0 MCH 30.5 MCHC 34.6 RDW 15.9 H Plt Count 140 L Neut % (Auto) 55.2 Lymph % (Auto) 26.7 Addison % (Auto) 10.7 Eos % (Auto) 6.9 H Baso % (Auto) 0.5 Neut # (Auto) 3600 Lymph # (Auto) 1800 [place]ison # (Auto) 700 Eos # (Auto) 500 H Baso # (Auto) 0 Sodium 139 Potassium 3.4 Chloride 110 H Carbon Dioxide 26 BUN 14 Creatinine 0.96 Estimated GFR > 60 BUN/Creatinine Ratio 14.6 Glucose 112 H Calcium 8.4 Magnesium 1.8 Total Bilirubin 0.5 AST 20 ALT 14 Alkaline Phosphatase 71 Total Protein 5.8 L Albumin 2.8 L Globulin 3.0 Albumin/Globulin Ratio 0.9 L [facility] Medical History History of small bowel obstruction Iron deficiency anemia Seizure disorder Hypertension CVA, old, alterations of sensations Surgical History History of colonoscopy with polypectomy History of bowel resection History of appendectomy Family History Father Cancer Social History household members: spouse and children Smoking Status: Former smoker alcohol intake: never Assessment & Plan Post-op Assessment and plan (1) Closed hip fracture: Assessment and Plan narrative: 1) Partial weightbearing to LLE x 4 weeks. 2) Follow up in ortho clinic in 2 weeks for staple removal, wound check. If it is too cumbersome to transport pt, this may be done at SNF or other facility. F/u w/ Dr Zhou in 6 weeks for repeat imaging and symptom check. 3) Currently on enoxaparin for VTE prophylaxis. This can be continued x 4 weeks, or pt can change to ASA BID x 6 weeks. Per LICENSING MANAGER recommendations from yesterday's barium swallow, this can be crushed and mixed with a pureed-consistency food. 4) Pain management and disposition per hospitalist service. Postoperative Procedures: Procedures Operation Date: 06/03/23 10:00 Actual Procedure Side Surgeon p ORIF Hip/Cannulated Screws Left Anton Zhou MD Postoperative day: 3
--- NOTE | 2023-06-06 08:49 | P.DS_ITS ---
History of Present Illness History of Present Illness Chief complaint: fell/lt leg inj Narrative: 77 years old male with cognitive decline/dementia (SLUMS 08/29) CVA, hypertension, seizure disorder, bowel obstructions in the past was brought into the emergency room status post fall with left hip pain and vomiting. He is not a good historian and only able to relate his name. Unable to get a good history from the patient and additional history remains unavailable today. Most of the history has been obtained from caregiver/chart review. Apparently on arrival, patient was also hypoxic and confused. CT scan of the brain shows no acute process. CT chest abdomen and pelvis was done that was negative for pulm embolism but does show interlobar septal thickening with trace bilateral pleural effusions with potential pulmonary edema and mildly displaced fracture of the subcapital left femoral head. Patient was given IV Zosyn with oxygen. Discussed with orthopedics and patient was admitted for further evaluation. Orthopedics plans for operiatve interventions tomorrow. He was taken off supplemental oxygen this morning and was able to maintain saturations above 90%. Discharge Providers Provider Date of admission: 06/02/23 01:09 Discharge Date: 06/06/23 Primary care physician: Gemini Nix MD Consults: 06/02/23 01:23 Consult to Orthopedic Surgery Routine Comment: Consulting Provider: Anton Zhou Reason for consultation: left hip fracture Has provider been notified: Yes 06/02/23 10:43 Consult to Dietitian, Adult Routine Comment: Reason For Exam: difficulty swallowing pills 06/03/23 13:00 Consult to Speech Therapy Evaluate & Treat Comment: Physician Instructions: Evaluate and treat 06/03/23 16:10 Consult to Discharge Planning Routine Comment: Consult to Physical Therapy Evaluate & Treat Comment: Physician Instructions: Evaluate and Treat 06/04/23 08:06 Consult to Occupational Therapy Evaluate & Treat Comment: Physician Instructions: Evaluate and treat Discharge provider: Noble Wade DO Summary Hospital Course Discharge Diagnosis: Sepsis with acute respiratory failure with hypoxia, elevated creatinine, acute metabolic encephalopathy secondary to either pneumonia or acute cystitis - acute respiratory failure is improved today, possible aspiration based on presenting imaging. - continue zosyn, UA positive and possible aspiration PNA on imaging. - urine culture with citrobacter freundii, sensitive to rocephin - switch zosyn to rocephin daily - improved lactate on repeat, now resolved at 1.1. - finished 5 day course of IV abx Dysphagia - likely due to encephalopathy - MOBILITY MANAGER eval made pureed diet, however patient had trouble taking po meds so will order MBS - passed MBS so back on pureed diet Left hip fracture status post fall, pathologic due to osteoporosis - S/p operative repair 06/02 - discussed recommendations with orthopedics team - PT OT to start, will need SNF Hypertension. continue to hold home medications in setting of above sepsis. Previously on felodipine and lisinopril. Seizure disorder. Resume the home Keppra at 1g BID GERD resume the home PPI FABRIZIO on CKD - Cr now normalized. Monitor. Cognitive decline/element of likely dementia. Supportive care, previous SLUMS 08/29 but definitely appears decreased cognition from prior admission. Previously on mirtazipine. 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 This increases the difficulty and complexity of medical and surgical interventions and increases the chances of poor outcomes such as morbidity and mortality. Hospital Course: Admitted for fall at home resulting in L hip fracture. Found to have UTI and possible PNA so given IV abx. Had encephalopathy on top of his dementia which improved. MOBILITY MANAGER recommended pureed diet and MBS showed no aspiration. Discharged to SNF for rehab. Exam Vital Signs (past 8 hours): - 06/06/23 01:35 06/06/23 05:45 Temperature 97.4 F L 97.2 F L Pulse Rate 76 83 Respiratory Rate 16 17 Blood Pressure 160/80 H 146/80 H Pulse Oximetry 93 93 Oxygen Flow Rate 0 0 Fraction of Inspired Oxygen 28 SaO2/FiO2 Ratio 357 Oxygen Delivery Method Nasal Cannula Oxygen Flow Rate 0 Narrative Exam Narrative: GEN: no acute distress, somnolent HEENT: moist mucous membranes, PERRL NECK: trachea midline, no JVD CV: regular rate and rhythm, no murmurs PULM: clear bilaterally ABD: soft, non-distended, no reported tenderness. EXT: warm and well perfused with no edema NEURO: no focal deficits Objective Labs 06/06/23 05:30 06/06/23 05:30 Labs: Laboratory Results - last 24 hr 06/06/23 05:30 WBC 6.6 RBC 3.47 L Hgb 10.6 L Hct 30.5 L MCV 88.0 MCH 30.5 MCHC 34.6 RDW 15.9 H Plt Count 140 L Neut % (Auto) 55.2 Lymph % (Auto) 26.7 Faulkner % (Auto) 10.7 Eos % (Auto) 6.9 H Baso % (Auto) 0.5 Neut # (Auto) 3600 Lymph # (Auto) 1800 Faulkner # (Auto) 700 Eos # (Auto) 500 H Baso # (Auto) 0 Sodium 139 Potassium 3.4 Chloride 110 H Carbon Dioxide 26 BUN 14 Creatinine 0.96 Estimated GFR > 60 BUN/Creatinine Ratio 14.6 Glucose 112 H Calcium 8.4 Magnesium 1.8 Total Bilirubin 0.5 AST 20 ALT 14 Alkaline Phosphatase 71 Total Protein 5.8 L Albumin 2.8 L Globulin 3.0 Albumin/Globulin Ratio 0.9 L PFSH Medical History History of small bowel obstruction Iron deficiency anemia Seizure disorder Hypertension CVA, old, alterations of sensations Surgical History History of colonoscopy with polypectomy History of bowel resection History of appendectomy Family History Father Cancer Social History household members: spouse and children Smoking Status: Former smoker alcohol intake: never Discharge Plan Discharge Plan Patient Disposition: SNF Discharge orders & Medications Prescriptions: Continued loratadine 10 MG tablet 10 mg PO DAILY PRN (Reason: Allergy Symptoms) mirtazapine 30 MG tablet 30 mg PO BEDTIME lisinopril 20 mg tablet 20 mg PO DAILY Patient Comments: Hold for SBP < 110 or HR < 60 fluoxetine 10 mg capsule 30 mg PO DAILY felodipine 10 mg tablet extended release 24 hr 10 mg PO DAILY Patient Comments: Hold for SBP < 110 or HR < 60 ferrous sulfate 324 mg (65 mg iron) tablet,delayed release (DR/EC) 1 tab PO DAILY Disabled Parking Permit 1 ea miscellaneous DIRECTED omeprazole 20 mg capsule,delayed release(DR/EC) 20 mg PO DAILY levetiracetam 500 mg tablet 1,000 mg PO BID Qty: 0 0RF acetaminophen 325 mg Tablet 650 mg PO Q6H PRN (Reason: Fever/Mild Pain (1-3)) Qty: 30 0RF Follow up/Referrals: Gemini Nix MD [Primary Care Provider] - 2 Weeks Anton Zhou MD [Physician] - 2 Weeks (Follow up in ortho clinic w/ PA or Dr Zhou in 2 weeks for wound check/staple removal. If transfer from [facility] is too difficult, reyna may be removed at [facility] between 06/12 and 06/16. Pt should f/u in office w/ Dr Zhou in 6 weeks for repeat imaging.) Diet/Activity/Treatments Diet: Regular Liquid consistency: Normal/Thin Food texture: Blenderized or pureed Activity: Partial weightbearing to LLE x 4 weeks. Catheter: 2-way Wadsworth Catheter comment: due to poor mobility s/p hip repair. remove once ambulating Skin/Wound/Dressing Care Dressing: May remove dressings and replace w/ clean, dry gauze on 06/07/2023. [facility] Reason for rehabilitation: Post-operative therapy Rehab type: Physical therapy and Occupational therapy Visit Report/Discharge Packet Stand Alone Forms: Patient Portal/API Discharge Data Primary Care Provider: Gemini Nix
[2023-06-06 09:25] VITALS: BP 147/83
[2023-06-06] MEDS: lisinopriL 20 MG TABLET PO (09:25)
[2023-06-06] MEDS: FERROUS SULFATE 325 MG TABLET PO (09:25)
[2023-06-06] MEDS: PANTOPRAZOLE DR 20 MG TABLET PO (09:25)
[2023-06-06] MEDS: ENOXAPARIN 40 MG/0.4 ML SYRINGE SUBCUT (09:26)
[2023-06-06] MEDS: FLUoxetine 10 MG CAPSULE 30 MG PO (09:26)
[2023-06-06] MEDS: levETIRAcetam 250 MG TABLET 1000 MG PO (09:26)
[2023-06-06] MEDS: AMLODIPINE 5 MG TABLET 10 MG PO (09:27)
[2023-06-06] MEDS: cefTRIAXone 1,000 MG in SODIUM CHLORIDE 0.9% 100 ML 200 MG IV (09:28)
--- NOTE | 2023-06-06 10:38 | CM.DPNOTE ---
Addendum entered by DEAN Mccann 06/06/23 10:40: ADD: RN will call report Original Note: DC Note Patient has been discharged to [facility]; reviewed with spouse Fariba who remains agreeable to plan. Wheelchair arranged for belt picker at 1130. Completed and signed PASRR and signed med list emailed to Radhika at [facility]. Plan: Discharge to [facility] via cabulance JW
[2023-06-06] MEDS: POTASSIUM CHLORIDE 20 MEQ TAB 40 MEQ PO (11:02)
--- NOTE | 2023-06-06 11:43 | PC.NURSE ---
Pt brief changed and cardona emptied. Report called to Natalie IRVIN at [facility]. All questions answered. Pt out via facility w/c by Facility transport personnel with all belongings.
== END 2023-06-06 11:44 | DRG 853 ==
LOC: ED 06-02 01:10 → AC 06-02 01:10
PROVIDERS: Internal Medicine; Orthopaedic Surgery Orthopaedic Surgery of the Spine; Admitting Provider Internal Medicine; Emergency Provider Emergency Medicine; PCP Internal Medicine; Referring Provider Emergency Medicine; Visit Provider Internal Medicine
PROC: 0QS704Z Reposition Left Upper Femur with Internal Fixation Device, Open Approach (ICD-10-PCS; principal; 2023-06-03 10:00)
DX: A41.9 Sepsis, unspecified organism (principal); E43 Unspecified severe protein-calorie malnutrition; G93.41 Metabolic encephalopathy; J96.01 Acute respiratory failure with hypoxia; J69.0 Pneumonitis due to inhalation of food and vomit; M80.052A Age-related osteoporosis with current pathological fracture, left femur, initial encounter for fracture; N17.9 Acute kidney failure, unspecified; N30.00 Acute cystitis without hematuria; Z68.1 Body mass index [BMI] 19.9 or less, adult; G40.909 Epilepsy, unspecified, not intractable, without status epilepticus; K21.9 Gastro-esophageal reflux disease without esophagitis; I12.9 Hypertensive chronic kidney disease with stage 1 through stage 4 chronic kidney disease, or unspecified chronic kidney disease; N18.9 Chronic kidney disease, unspecified; F03.90 Unspecified dementia, unspecified severity, without behavioral disturbance, psychotic disturbance, mood disturbance, and anxiety; R65.20 Severe sepsis without septic shock; B96.89 Other specified bacterial agents as the cause of diseases classified elsewhere; Z86.73 Personal history of transient ischemic attack (TIA), and cerebral infarction without residual deficits; Z87.891 Personal history of nicotine dependence
CPT/HCPCS: 36415; 36600; 70450; 71045; 71275; 73502; 74177; 74230; 76000; 80048; 80053; 80305; 80320; 81001; 82550; 82805; 82962; 83605; 83690; 83735; 83880; 84145; 84484; 85007; 85025; 85610; 85730; 86850; 86900; 86901; 87040; 87077; 87086; 87186; 92610; 92611; 93005; 94762; 96374; 97162; 97167; 97530; 99284; 99285; C1776; J0171; J0690; J0696; J1170; J1650; J1953; J2270; J2405; J2543; J2704; J3010; J3475; J7050; Q9967

== ENCOUNTER 2023-07-23 10:16 | Emergency (ER) | payer MEDICARE, OTHER, SELFPAY ==
[2023-06-02 02:16] VITALS: BMI 17.9
[2023-07-23] VITALS (13 sets, daily range): BP systolic 136–168; BP diastolic 67–74; PULSE 61–71; RESP 17–18; TEMP 36.3; O2SAT 93–99; BMI 19.6
--- NOTE | 2023-07-23 10:31 | DI.RAD.S_ITS ---
PROCEDURE: XR CLAVICLE LT INDICATIONS: fall, left shoulder pain TECHNIQUE: 2 views of the clavicle were acquired. COMPARISON: None. FINDINGS: Bones: No fractures or dislocations. No suspicious bony lesions. Soft tissues: No suspicious soft tissue calcifications. IMPRESSION: No visualized acute fracture or dislocation. However, if clinical concern and/or pain persist, short interval imaging followup in 7-10 days is recommended, as occult injury cannot be definitively excluded. Dictated by: Seema Saba M.D. on 07/23/2023 at 11:41 Approved by: Seema Saba M.D. on 07/23/2023 at 11:42
--- NOTE | 2023-07-23 10:31 | DI.RAD.S_ITS ---
PROCEDURE: XR SHOULDER LT MIN 2V INDICATIONS: fall, left shoulder pain TECHNIQUE: 2 views of the shoulder were acquired. COMPARISON: [facility], CR, XR CLAVICLE LT, 07/23/2023, 10:45. FINDINGS: Bones: No fractures or dislocations. No suspicious bony lesions. Visualized ribs appear intact. Soft tissues: No suspicious soft tissue calcifications. IMPRESSION: No visualized acute fracture or dislocation. However, if clinical concern and/or pain persist, short interval imaging followup in 7-10 days is recommended, as occult injury cannot be definitively excluded. Dictated by: Seema Saba M.D. on 07/23/2023 at 11:43 Approved by: Seema Saba M.D. on 07/23/2023 at 11:43
--- NOTE | 2023-07-23 10:33 | DI.RAD.S_ITS ---
PROCEDURE: XR HIP W PEL IF DONE LT 2V INDICATIONS: fall, left hip pain TECHNIQUE: AP pelvis with lateral view(s) of the left hip(s). COMPARISON: [facility], CR, XR HIP W PEL IF DONE LT 2V, 06/03/2023, 12:01. [facility], CR, XR HIP W PEL IF DONE LT 2V, 06/01/2023, 21:05. FINDINGS: Bones: No fractures or dislocations. Pelvic ring appears intact. No suspicious bony lesions. Left femoral naun fixation. Hardware is intact without hardware fracture or periprosthetic lucency to suggest loosening. Alignment is stable. Soft tissues: The visualized bowel gas pattern is normal. No suspicious soft tissue calcifications. IMPRESSION: No visualized acute fracture or dislocation. However, if clinical concern and/or pain persist, short interval imaging followup in 7-10 days is recommended, as occult injury cannot be definitively excluded. Dictated by: Seema Saba M.D. on 07/23/2023 at 11:42 Approved by: Seema Saba M.D. on 07/23/2023 at 11:43
--- NOTE | 2023-07-23 10:47 | ED_ITS ---
HPI - General Adult General Chief complaint: Fall Stated complaint: Fall, Left shoulder pain Time Seen by Provider: 07/23/23 10:20 Source: patient and family Mode of arrival: Wheelchair History of Present Illness HPI narrative: 77-year-old gentleman with a history of prior strokes, hypertension, seizure, developing cognitive impairment with recent left hip fracture and discharge from the hospital on June 05. He went to residential facility came home yesterday and fell at home. It is described as a slide out of bed landing on his left side with concerns for continued weakness. Patient has had a prior stroke which has left his left side week. He has walker and wheelchair available at home. The walker was close to his bedside at the time of the fall. His notes that he still seems very weak and is having difficulty with mobility. She had asked for review of his discharge from the nursing facility but that was declined. She is wondering if that might be revisited today given the fact that he fell simply sitting at the edge of his bed within 24 hours of discharge from the residential facility. Told her we will ask our addiction social worker to become involved. Patient on self is somewhat sleepy but in no acute distress. His states that he has been fatigued, weak but was able to eat dinner last night he has not having fevers, cough he has not complaining of abdominal pain or dysuria. With the slumping out of bed today he did not specifically hit his head. Related Data Home Medications Medication Instructions Recorded Confirmed Disabled Parking Permit 1 ea miscellaneous DIRECTED 12/25/17 06/02/23 felodipine 10 mg tablet,extended 10 mg PO DAILY 12/25/17 06/02/23 release 24 hr ferrous sulfate 324 mg (65 mg 1 tab PO DAILY 12/25/17 06/02/23 iron) tablet,delayed release fluoxetine 10 mg capsule 30 mg PO DAILY 12/25/17 06/02/23 lisinopril 20 mg tablet 20 mg PO DAILY 12/25/17 06/02/23 loratadine 10 mg tablet 10 mg PO DAILY PRN Allergy Symptoms 12/25/17 06/02/23 mirtazapine 30 mg tablet 30 mg PO BEDTIME 12/25/17 06/02/23 omeprazole 20 mg capsule,delayed 20 mg PO DAILY 05/15/21 06/02/23 release Previous Rx's Medication Instructions Recorded levetiracetam 500 mg tablet 1,000 mg (2 x 500 mg) PO BID #0 05/18/21 tabs acetaminophen 325 mg tablet 650 mg (2 x 325 mg) PO Q6H PRN 01/04/23 Fever/Mild Pain (1-3) #30 tabs Allergies Allergy/AdvReac Type Severity Reaction Status Date / Time No Known Drug Allergies Allergy Verified 07/23/23 10:28 Review of Systems Review of Systems Narrative: Pertinent positive and negative findings as per HPI Patient History Medical History (Updated 07/23/23 @ 14:46 by Sara Ritchie MD) History of small bowel obstruction Iron deficiency anemia Seizure disorder Hypertension CVA, old, alterations of sensations Surgical History History of colonoscopy with polypectomy History of bowel resection History of appendectomy Family History Father Cancer Social History household members: spouse and children Smoking Status: Former smoker alcohol intake: never Smoking Status: Former smoker alcohol intake frequency: 0-2 drinks per day Substance Use Type: does not use Exam Initial Vital Signs Initial Vital Signs: Vital Signs Temperature 97.3 F L 07/23/23 10:24 Pulse Rate 69 07/23/23 10:24 Respiratory Rate 18 07/23/23 10:24 Blood Pressure 164/73 H 07/23/23 10:24 Pulse Oximetry 99 07/23/23 10:24 Oxygen Delivery Method Room Air 07/23/23 10:24 General: Chronically ill-appearing gentleman in no acute distress. Fatigued with his answering majority of questions HEENT: Moist mucous membranes, normal sclera with reactive pupils, no abrasions or contusions appreciated Neck: No tenderness to palpation Respiratory: Lungs are clear to auscultation, no wheezing no rales no rhonchi. Full and symmetrical air movement Cardiac: Regular rate and rhythm no murmurs no bruits Abdomen: Soft, nontender, good bowel tones, no flank pain Skin: Warm and dry, no rashes Neurologic: Left side is globally weak with slight facial droop. 4/5 strength to upper and lower extremities. feels he is at his baseline. Speech is appropriate. Extremities: No trauma, well perfused Psych: Cooperative, appropriate insight and affect Course Orders Ordered: ED Orders 07/23/23 10:31 XR clavicle LT Stat XR shoulder LT min 2V Stat 07/23/23 10:33 XR hip w pel if done LT 2V Stat 07/23/23 12:02 Consult to CAN FILLING ROOM SWEEPER - Manager Inpatient Stat Discontinued Medications Acetaminophen (Acetaminophen 325 Mg Tablet) 975 mg PO NOW ONE Stop: 07/23/23 10:50 Last Admin: 07/23/23 10:57 Dose: 975 mg Documented By: BINA Vital Signs Vital signs: Vital Signs - 8 hr 07/23/23 10:24 07/23/23 10:36 07/23/23 11:01 Temperature 97.3 F L Pulse Rate 69 71 64 Respiratory Rate 18 18 Blood Pressure 164/73 H Pulse Oximetry 99 98 93 Oxygen Delivery Method Room Air Room Air 07/23/23 11:02 07/23/23 11:02 07/23/23 11:30 Temperature Pulse Rate 70 Respiratory Rate 17 Blood Pressure 168/74 H 156/70 H Pulse Oximetry 95 Oxygen Delivery Method Room Air 07/23/23 11:30 07/23/23 12:00 07/23/23 12:00 Temperature Pulse Rate 61 67 Respiratory Rate Blood Pressure 146/67 H Pulse Oximetry 99 99 Oxygen Delivery Method Room Air 07/23/23 12:30 07/23/23 12:30 07/23/23 13:00 Temperature Pulse Rate 65 63 Respiratory Rate 18 Blood Pressure 156/69 H Pulse Oximetry 99 99 Oxygen Delivery Method Room Air 07/23/23 13:01 07/23/23 13:01 07/23/23 13:31 Temperature Pulse Rate 64 Respiratory Rate 18 Blood Pressure 156/71 H 152/70 H Pulse Oximetry 99 Oxygen Delivery Method Room Air Medical Decision Making MDM Narrative Medical decision making narrative: CC: Slumping out of bed landing on his left side due to weakness Complicating co-morbidities: Left-sided weakness secondary to an old stroke, discharge from residential facility yesterday after left hip fracture Data collected from: patient, Medical records reviewed: Discharge summary from May with the hip fracture and SNF admission reviewed Differential considered: Fractures, abrasions, contusions, recurrent stroke Exam documented above, pertinent findings include: feels he is at his baseline, he does have moderate left-sided weakness. He is somewhat somnolent but can cooperate directly. No obvious trauma Imaging studies independently reviewed: X-ray of his clavicle and left shoulder unremarkable. X-ray of the pelvis and hip do not show any new findings Consultations: Social work evaluation was done Re-evaluations: Patient's has asked talked with the addiction social worker, we will facilitate that Discussion: 77-year-old gentleman with a history of prior left-sided stroke with left-sided weakness, left hip fracture in May with residential stay following. Discharge from residential facility yesterday. Went to get a bed this morning and slid down the side of the bed landing on his left side. Complaining of shoulder pain. X-rays of shoulder, arm and pelvis as well as hip show no significant abnormalities and hip surgery site is continuing to heal well. His was wondering if he could be readmitted to residential facility and unfortunately he has not meeting any criteria for that. She does have home health set up, he has canes, walkers, wheelchairs available at home. He has been living with the left-sided weakness for a significant period of time before the recent hip fracture. There was no sign of additional medical problem that would require further evaluation. Unfortunately, I believe his worsening cognitive deficits and deconditioning from hospitalization and recent residential home stay are contributing to overall weakness. He will be discharged home, is aware of need for help with standing and transfers. We will continue with all outpatient follow up as arranged with the nursing facility discharge yesterday. Discharge Plan Departure Patient Disposition: Home Clinical Impression: Fall Qualifiers: Encounter type: initial encounter Qualified Code(s): W19.XXXA - Unspecified fall, initial encounter Contusion of left shoulder Qualifiers: Encounter type: initial encounter Qualified Code(s): S40.012A - Contusion of left shoulder, initial encounter Instructions: DI for Shoulder Pain Activity Restrictions/Additional Instructions: Thank you for coming in today I am sorry that you are concerned that you were discharged too soon from your residential facility. You did talk with our addiction social worker today. You do have home health coming out. Please make sure that you keep your walker close to your bedside and make use of your wheelchair as much as needed. You did not break any bones with this fall. If you find that you are getting worse or develop any new symptoms, please feel free to return to the emergency department for further evaluation. Prescriptions: No Action loratadine 10 MG tablet 10 mg PO DAILY PRN (Reason: Allergy Symptoms) mirtazapine 30 MG tablet 30 mg PO BEDTIME lisinopril 20 mg tablet 20 mg PO DAILY Patient Comments: Hold for SBP < 110 or HR < 60 fluoxetine 10 mg capsule 30 mg PO DAILY felodipine 10 mg tablet extended release 24 hr 10 mg PO DAILY Patient Comments: Hold for SBP < 110 or HR < 60 ferrous sulfate 324 mg (65 mg iron) tablet,delayed release (DR/EC) 1 tab PO DAILY Disabled Parking Permit 1 ea miscellaneous DIRECTED omeprazole 20 mg capsule,delayed release(DR/EC) 20 mg PO DAILY levetiracetam 500 mg tablet 1,000 mg PO BID Qty: 0 0RF acetaminophen 325 mg Tablet 650 mg PO Q6H PRN (Reason: Fever/Mild Pain (1-3)) Qty: 30 0RF Referrals: Gemini Nix MD [Primary Care Provider] - Stand Alone Forms: Patient Portal/API
[2023-07-23] MEDS: ACETAMINOPHEN 325 MG TABLET 975 MG PO (10:57)
--- NOTE | 2023-07-23 13:17 | CM.SWNOTE ---
Addendum entered by DEAN Cassidy 07/23/23 13:53: KEYBOARD INSTRUMENT REPAIRER [facility], Maria L, and discussed pt possible re-admission. Per DC Library Associate, pt exhausted Medicare benefit and family not able to private pay. Per DC Library Associate, pt is a fall risk and more appropriate for intermediate manager care but family not agreeable to residential care at this time. KEYBOARD INSTRUMENT REPAIRER noted that formerly [facility] was called and open date still around 4.27. DC Library Associate stated open date was supposed to be within 24-48 hour of discharge when referral was sent; [facility] DCP will follow up on pt's behalf as well. ELIZABETH Blair Original Note: ED KEYBOARD INSTRUMENT REPAIRER Note: Pt is a 77yo M, resident of [place], presents to the ED due to a fall and left shoulder pain. Pt was recently discharged on 07.22.[address] [facility] (admitted on 06.06.23). Pt's Primary Care Provider is Gemini Nix and insurance is Medicare and [employer]. KEYBOARD INSTRUMENT REPAIRER entered room, introduced self and role. Present in the room was pt's , Fariba. Pt was found to be somnolent; pt's was able to confirm history on pt's behalf. Pt's endorsed pt was recently discharged from [facility] even after two appeals were placed by pt's family. Pt's reports her appeals to insurance were declined and pt family not able to provide private pay at this time. Pt's explains pt was having very slow improvement at SNF and felt he just needed more time to build strength following surgery. Pt explained formerly [facility] was set up for pt at discharge but didn't have an open date yet. KEYBOARD INSTRUMENT REPAIRER discussed discharge plans with pt's - pt's hoping for re-admission to [facility], pending x-ray results. Pt's endorses having two adult children in home. KEYBOARD INSTRUMENT REPAIRER called [facility] and left a message with inventory planner, Maria L. KEYBOARD INSTRUMENT REPAIRER called [facility] ([phone]) and spoke with [employer] contracts specialist. KEYBOARD INSTRUMENT REPAIRER requested for pt to be considered for a sooner open date, at the time of this writing, soonest open date is 4.27.24. KEYBOARD INSTRUMENT REPAIRER sent ED clinicals to be referred to RN team for possible sooner open date. [facility] to follow up with pt's family. Plan: Anticipating pt to discharge home with family, once medically clear. ED KEYBOARD INSTRUMENT REPAIRER following for pending discharge needs.
== END 2023-07-23 15:18 | disposition home or self-care (01) ==
PROVIDERS: Emergency Provider Emergency Medicine; PCP Internal Medicine
DX: S40.012A Contusion of left shoulder, initial encounter (principal); R53.1 Weakness; W06.XXXA Fall from bed, initial encounter
CPT/HCPCS: 73000; 73030; 73502; 99283